=== PATIENT | female | born 1990 | race Caucasian/White ===

== ENCOUNTER 2016-10-29 10:40 | Emergency (ER) | payer MEDICARE, MEDICAID ==
[~2016-10-29] VITALS: Ht 160 cm; Wt 88.0 kg
[~2016-10-29 10:40] MED LIST: BUME1TAB28 PO; CARV6.252 PO; LISI10TA3 PO; METO5TAB3 PO
[2016-10-29 10:48] VITALS: BP 134/97; PULSE 94; RESP 18; TEMP 98.1; O2SAT 98
[2016-10-29] MEDS ORDERED: OXYC-395 PO (11:08)
[2016-10-29] MEDS ORDERED: ZOFR4TAB3 SL (11:08)
[2016-10-29] MEDS ORDERED: ZOFR4TAB PO (11:25)
--- NOTE | 2016-10-29 11:31 | PD ---
HPI Chief Complaint: Edema Time Seen by Provider: 11:11 Travel History International Travel<30 days: No Contact w/Intl Traveler<30days: No Traveled to known affect area: No History of Present Illness HPI The patient was seen and examined in the presence of the nurse. This patient complains of some swelling in her legs and abdominal wall. She has history of cardiomyopathy. She takes Bumex and reports compliance. She requests more narcotic medication for chronic back pain. She is not short of breath. Symptoms severity is mild PFSH Past Medical History Arthritis: No Asthma: No Autoimmune Disease: No Blood Disorders: No Anxiety: Yes Depression: Yes Heart Rhythm Problems: No Cancer: No Cardiomyopathy: Yes Cardiovascular Problems: Yes (AICD, POST- CARDIOMYOPATHY) High Cholesterol: Yes Chemotherapy: No Chest Pain: Yes Congestive Heart Failure: Yes COPD: No Cerebrovascular Accident: No Diabetes: Yes Patient Takes Glucophage: No Diminished Hearing: No Endocrine: Yes Gastrointestinal Disorders: Yes (Pancreatitis) GERD: No Genitourinary: Yes (Chronic Kidney disease) Headaches: Yes Hiatal Hernia: No Hypertension: Yes Immune Disorder: No Implanted Vascular Access Dvce: Yes Kidney Stones: No Musculoskeletal: Yes (Back) Neurologic: Yes (Neuropathy) Psychiatric: Yes Reproductive: No Respiratory: Yes Immunizations Current: Yes Migraines: Yes Radiation Therapy: No Renal Failure: Yes (stage 3 kidney disease) Seizures: No Sleep Apnea: No Thyroid Disease: No Ulcer: No Tetanus Vaccination: < 5 Years Influenza Vaccination: Yes ?: Not : 1 Para: 1 Miscarriage: 0 : 0 Tubal Ligation: Yes Past Surgical History Abdominal Surgery: No AICD: Yes Arteriovenous Shunt: No Body Medical Devices: PT WORE EXTERNAL LIFE VEST 05/15/13 Cardiac Surgery: Yes (AICD PLACED & REMOVED) Section: Yes Cholecystectomy: Yes Ear Surgery: No Endocrine Surgery: No Eye Surgery: No Genitourinary Surgery: No Gynecologic Surgery: Yes Insulin Pump: No Joint Replacement: No Oral Surgery: No Pacemaker: No Thoracic Surgery: No Tonsillectomy: Yes (7 years old.) Other Surgery: Yes (TONSILLECTOMY, C SECTION, TUBAL, GALLBLADDER REMOVAL) Social History Alcohol Use: No Tobacco Use: No Substance Use: No Allergies-Medications (Allergen,Severity, Reaction): Coded Allergies: Toradol (Verified Adverse Reaction, Intermediate, SHAKING, 10/29/16) Reported Meds & Prescriptions Reported Meds & Active Scripts Active Zofran (Ondansetron HCl) 4 Mg Tab 4 Mg PO Q6HR PRN Metolazone 5 Mg Tab 5 Mg PO DAILY 30 Days Lisinopril 10 Mg Tab 10 Mg PO DAILY 30 Days Carvedilol 6.25 Mg Tab 6.25 Mg PO BID 30 Days Bumex (Bumetanide) 2 Mg Tab 2 Mg PO BID 30 Days Reported Oxycodone (Oxycodone HCl) 10 Mg Tab 10 Mg PO Q6H PRN Zofran Odt (Ondansetron Odt) 4 Mg Tab 4 Mg SL DIRECTED PRN Review of Systems General / Constitutional: No: Fever HENT: No: Headaches Cardiovascular: No: Chest Pain or Discomfort Physical Exam Narrative RESPIRATORY: Respiratory effort unlabored, no retractions or use of accessory muscles. Breath sounds are clear and symmetric. GASTROINTESTINAL: Abdomen soft, non-tender, nondistended. Positive bowel sounds. No hepato-splenomegaly, or palpable masses. No guarding. SKIN: Inspection shows no rash or ulcers. Palpation shows no induration or nodules. Legs: No edema noted Data Data Last Documented VS Vital Signs Date Time Temp Pulse Resp B/P Pulse Ox O2 Delivery O2 Flow Rate FiO2 10/29/16 11:01 92 98 Room Air 10/29/16 10:48 98.1 18 134/97 MDM Medical Decision Making Medical Screen Exam Complete: Yes Emergency Medical Condition: Yes Medical Record Reviewed: Yes Differential Diagnosis CHF, anasarca, noncompliance Narrative Course I have reviewed the patient's electronic medical record. Reviewed her visit from October 04, 2016 Patient has no emergent condition at the moment. She does have chronic cardiomyopathy but appears well compensated. Lungs are clear with saturations of 100% on room air and no peripheral edema No indication for emergent studies She requests narcotic pain medicine which may be the real reason for her visit I don't feel comfortable continuing 26-year-old chronic narcotics, I think this is a bad idea and was honest with her about that. I'm not going to prescribe them. She should discuss this with her primary physician but should wean herself off of these I think. 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 Recommend weaning off chronic narcotics Med/Other Pt SpecificInfo: Prescription(s) given Scripts Ondansetron (Zofran)4 Mg Tab4 Mg PO Q6HR PRN (NAUSEA OR VOMITING) #15 TAB Ref 0 Prov:Ronan Jorgensen MD 10/29/16 Disposition: 01 DISCHARGE HOME Condition: Stable Ronan Jorgensen MD Oct 29, 2016 11:31
== END 2016-10-29 11:39 | disposition home or self-care (01) ==
LOC: PHED 10:40
DX: I42.9 Cardiomyopathy, unspecified (principal); I12.9 Hypertensive chronic kidney disease with stage 1 through stage 4 chronic kidney disease, or unspecified chronic kidney disease; E78.00 Pure hypercholesterolemia, unspecified; I50.9 Heart failure, unspecified
CPT/HCPCS: 99283

== ENCOUNTER 2016-11-26 11:24 | Inpatient (IN) | payer MEDICARE, MEDICAID ==
[2016-11-26] VITALS (7 sets, daily range): BP systolic 104–168; BP diastolic 57–93; PULSE 75–130; RESP 13–32; TEMP 98.7–102.9; O2SAT 95–100
[~2016-11-26] VITALS: Ht 165.1 cm; Wt 96.7 kg
[~2016-11-26 11:24] MED LIST changes: +OXYC-395 PO; +ZOFR4TAB PO; +ZOFR4TAB3 SL
[2016-11-26] MEDS ORDERED: ACETAMINOPHEN 325 MG TAB PO ONE (11:45)
[2016-11-26] MEDS ORDERED: ONDANSETRON HCL 4 MG/2 ML VIAL IV ONE (11:45)
[2016-11-26] MEDS ORDERED: SODIUM CHLOR 0.9% 1000 ML INJ 400 ML IV ONE (11:47)
[2016-11-26] MEDS ORDERED: SODIUM CHLOR 0.9% 1000 ML INJ 1,000 ML IV ONE ×2 (11:47)
[2016-11-26] MEDS ORDERED: VANCOMYCIN INJ 1,000 MG in SODIUM CHLOR 0.9% 250 ML INJ 250 ML IV STA (11:47)
[2016-11-26] MEDS ORDERED: PIPERACIL-TAZO 4.5 GM PREMIX 100 ML IV STA (11:47)
--- NOTE | 2016-11-26 12:02 | PD ---
HPI Chief Complaint: Respiratory Symptoms Time Seen by Provider: 11:58 Travel History International Travel<30 days: No Contact w/Intl Traveler<30days: No Traveled to known affect area: No History of Present Illness HPI Patient comes in complaining of shortness of breath that began last night. Patient states had some similar happen to her in the past most recently approximately 2-3 months ago that she had to come to the emergency department. Patient has a history of cardiomyopathy and renal failure. Patient reports she was on dialysis up to about 2 years ago for this. Patient states she's been taking all her medications prescribed, but ran out of her Xanax and pain medication 2 days ago. Symptoms are worse with lying flat and improved with sitting up straight. Patient reports she took Tylenol and aspirin approximately 2 hours prior to coming to the emergency department. PFSH Past Medical History Arthritis: No Asthma: No Autoimmune Disease: No Blood Disorders: No Anxiety: Yes Depression: Yes Heart Rhythm Problems: No Cancer: No Cardiomyopathy: Yes Cardiovascular Problems: Yes (CARDIOMYOPATHY) High Cholesterol: Yes Chemotherapy: No Chest Pain: Yes Congestive Heart Failure: Yes COPD: No Cerebrovascular Accident: No Diabetes: Yes Diminished Hearing: No Endocrine: Yes Gastrointestinal Disorders: Yes (Pancreatitis) GERD: No Genitourinary: Yes (Chronic Kidney disease) Headaches: Yes Hiatal Hernia: No Hypertension: Yes Immune Disorder: No Implanted Vascular Access Dvce: Yes Kidney Stones: No Musculoskeletal: Yes (Back) Neurologic: Yes (Neuropathy) Psychiatric: Yes Reproductive: No Respiratory: Yes Immunizations Current: Yes Migraines: Yes Radiation Therapy: No Renal Failure: Yes (stage 3 kidney disease) Seizures: No Sleep Apnea: No Thyroid Disease: No Ulcer: No ?: Not LMP: 11/19/16 : 1 Para: 1 Miscarriage: 0 : 0 Tubal Ligation: Yes Past Surgical History Abdominal Surgery: No AICD: Yes Arteriovenous Shunt: No Body Medical Devices: PT WORE EXTERNAL LIFE VEST 05/15/13 Cardiac Surgery: Yes (AICD PLACED & REMOVED) Section: Yes Cholecystectomy: Yes Ear Surgery: No Endocrine Surgery: No Eye Surgery: No Genitourinary Surgery: No Gynecologic Surgery: Yes Insulin Pump: No Joint Replacement: No Oral Surgery: No Pacemaker: No Thoracic Surgery: No Tonsillectomy: Yes (7 years old.) Other Surgery: Yes (, Tubalitigation, Gallbladder) Social History Alcohol Use: No Tobacco Use: No Substance Use: No Allergies-Medications (Allergen,Severity, Reaction): Coded Allergies: Toradol (Verified Adverse Reaction, Intermediate, SHAKING, 10/29/16) Reported Meds & Prescriptions Reported Meds & Active Scripts Active Zofran (Ondansetron HCl) 4 Mg Tab 4 Mg PO Q6HR PRN Metolazone 5 Mg Tab 5 Mg PO DAILY 30 Days Lisinopril 10 Mg Tab 10 Mg PO DAILY 30 Days Carvedilol 6.25 Mg Tab 6.25 Mg PO BID 30 Days Bumex (Bumetanide) 2 Mg Tab 2 Mg PO BID 30 Days Reported Oxycodone (Oxycodone HCl) 10 Mg Tab 10 Mg PO Q6H PRN Review of Systems Except as stated in HPI: all other systems reviewed are Neg Physical Exam Narrative GENERAL: Well-developed, overly nourished, in no acute distress, and non-ill appearing. SKIN: Warm and dry. HEAD: Atraumatic. Normocephalic. EYES: Pupils equal and round. EOMI. No scleral icterus. No injection or drainage. ENT: No nasal bleeding or discharge. Mucous membranes pink and moist. NECK: Trachea midline. No JVD. Supple. No nuclear rigidity. CARDIOVASCULAR: Regular rate and rhythm. No murmur appreciated. RESPIRATORY: No accessory muscle use. No respiratory distress. Clear to auscultation. Breath sounds equal bilaterally. GASTROINTESTINAL: Abdomen soft, non-tender, nondistended. Hepatic and splenic margins not palpable. Normal bowel sounds 4. No pulsatile mass. MUSCULOSKELETAL: No obvious deformities. No clubbing. No cyanosis. 2+ pitting edema bilateral lower extremities. Full range of motion. NEUROLOGICAL: Awake and alert. No obvious cranial nerve deficits. Motor grossly within normal limits. Normal speech. PSYCHIATRIC: Appropriate mood and affect; insight and judgment normal. Data Data Last Documented VS Vital Signs Date Time Temp Pulse Resp B/P Pulse Ox O2 Delivery O2 Flow Rate FiO2 11/26/16 11:49 100 Nasal Cannula 2 11/26/16 11:38 102.9 130 32 168/93 Orders Electrocardiogram (11/26/16 11:43) Complete Blood Count With Diff (11/26/16 11:43) Comprehensive Metabolic Panel (11/26/16 11:43) Lactic Acid Sepsis Protocol (11/26/16 11:43) Ckmb (Isoenzyme) Profile (11/26/16 11:43) Troponin I (11/26/16 11:43) Urinalysis - C+S If Indicated (11/26/16 11:43) Influenzae A/B Antigen (11/26/16 11:43) Blood Culture (11/26/16 11:43) Chest, Single Ap (11/26/16 11:43) Blood Glucose (11/26/16 11:43) Ecg Monitoring (11/26/16 11:43) Iv Access Insert/Monitor (11/26/16 11:43) Oximetry (11/26/16 11:43) Oxygen Administration (11/26/16 11:43) Acetaminophen (Tylenol) (11/26/16 11:45) Ondansetron Inj (Zofran Inj) (11/26/16 11:45) Vancomycin Inj (Vancomycin Inj) (11/26/16 11:47) Piperacil-Tazo 4.5 Gm Premix (Zosyn 4.5 (11/26/16 11:47) Sodium Chlor 0.9% 1000 Ml Inj (Ns 1000 M (11/26/16 11:47) Sodium Chlor 0.9% 1000 Ml Inj (Ns 1000 M (11/26/16 11:47) Sodium Chlor 0.9% 1000 Ml Inj (Ns 1000 M (11/26/16 11:47) B-Type Natriuretic Peptide (11/26/16 12:01) Urine Culture (11/26/16 13:10) Morphine Inj (Morphine Inj) (11/26/16 13:45) Admit Order (Ed Use Only) (11/26/16 13:57) Labs Laboratory Tests Test 11/26/16 11/26/16 11:40 13:10 White Blood Count 3.7 TH/MM3 Red Blood Count 4.39 MIL/MM3 Hemoglobin 12.5 GM/DL Hematocrit 37.0 % Mean Corpuscular Volume 84.4 FL Mean Corpuscular Hemoglobin 28.6 PG Mean Corpuscular Hemoglobin 33.9 % Concent Red Cell Distribution Width 17.2 % Platelet Count 157 TH/MM3 Mean Platelet Volume 10.4 FL Neutrophils (%) (Auto) 93.6 % Lymphocytes (%) (Auto) 4.7 % Monocytes (%) (Auto) 1.0 % Eosinophils (%) (Auto) 0.3 % Basophils (%) (Auto) 0.4 % Neutrophils # (Auto) 3.4 TH/MM3 Lymphocytes # (Auto) 0.2 TH/MM3 Monocytes # (Auto) 0.0 TH/MM3 Eosinophils # (Auto) 0.0 TH/MM3 Basophils # (Auto) 0.0 TH/MM3 CBC Comment DIFF FINAL Differential Comment Sodium Level 141 MEQ/L Potassium Level 3.4 MEQ/L Chloride Level 106 MEQ/L Carbon Dioxide Level 24.8 MEQ/L Anion Gap 10 MEQ/L Blood Urea Nitrogen 41 MG/DL Creatinine 2.31 MG/DL Estimat Glomerular Filtration 25 ML/MIN Rate Random Glucose 157 MG/DL Lactic Acid Level 1.8 mmol/L Calcium Level 8.1 MG/DL Total Bilirubin 0.8 MG/DL Aspartate Amino Transf 20 U/L (AST/SGOT) Alanine Aminotransferase 20 U/L (ALT/SGPT) Alkaline Phosphatase 134 U/L Total Creatine Kinase 55 U/L Troponin I 0.03 NG/ML B-Type Natriuretic Peptide 1015 PG/ML Total Protein 5.8 GM/DL Albumin 2.3 GM/DL Urine Color YELLOW Urine Turbidity HAZY Urine pH 6.5 Urine Specific Jo[place] 1.015 Urine Protein GREATER THAN 600 mg/dL Urine Glucose (UA) 150 mg/dL Urine Ketones NEG mg/dL Urine Occult Blood MOD Urine Nitrite NEG Urine Bilirubin NEG Urine Urobilinogen LESS THAN 2.0 MG/DL Urine Leukocyte Esterase NEG Urine RBC 9 /hpf Urine WBC 1 /hpf Urine Squamous Epithelial <1 /hpf Cells Urine Bacteria OCC /hpf Urine Hyaline Casts 1 /lpf Urine Mucus FEW /lpf Microscopic Urinalysis Comment CATH-CULTURE IND MDM Medical Decision Making Medical Screen Exam Complete: Yes Emergency Medical Condition: Yes Interpretation(s) EKG reviewed by Dr. Pham, shows sinus tachycardia with a ventricular rate of 129. No STEMI. Differential Diagnosis Sepsis, pneumonia, bronchitis, CHF exacerbation, UTI, acute IL, other Narrative Course Patient seen and examined. Initial laboratory radiological studies were ordered. Patient given IV fluid for hydration and started on an IV antibiotics. Discussed patient with Dr. Pham, who saw and evaluated the patient and is in agreement with plan of care and disposition. Discussed all findings and plan of care with patient, who is agreeable for admission. All questions were answered. Sepsis Criteria SIRS Criteria (2 or more): Temp > 100.9 or < 96.8, Heart rate over 90, RR > 20 or PaCO2 < 32 Sepsis Criteria (SIRS+source): Infect source susp/known Physician Communication Physician Communication [phone] Collier, who is agreeable to admit the patient. Diagnosis Primary Impression: Sepsis Qualified Code: A41.9 - Sepsis, due to unspecified organism Admitting Information Admitting Physician Requests: Admit Condition: Stable Jose Marie Nov 26, 2016 12:02
[2016-11-26 12:29] LABS: AUTOMATED NEUTROPHIL # 3.4 TH/MM3 (1.8-7.7); BASOPHIL % 0.4 % (0.0-2.0); EOSINOPHIL % 0.3 % (0.0-4.0); HEMO FLAGS DIFF FINAL; LYMPH % 4.7 % (9.0-44.0); LYMPHOCYTE # 0.2 TH/MM3 (1.0-4.8); MEAN CELL VOLUME 84.4 FL (80.0-100.0); MEAN CORPUSCULAR HEMOGLOBIN 28.6 PG (27.0-34.0); MEAN CORPUSCULAR HGB CONC 33.9 % (32.0-36.0); NEUT % 93.6 % (16.0-70.0); PLATELET COUNT 157 TH/MM3 (150-450); RED BLOOD COUNT 4.39 MIL/MM3 (4.00-5.30); RED CELL DISTRIBUTION WIDTH 17.2 % (11.6-17.2); WHITE BLOOD COUNT 3.7 TH/MM3 (4.0-11.0)
[2016-11-26 12:48] LABS: ALT (GPT) 20 U/L (10-53); ANION GAP 10 MEQ/L (5-15); AST (GOT) 20 U/L (15-37); BICARBONATE 24.8 MEQ/L (21.0-32.0); BLOOD UREA NITROGEN 41 MG/DL (7-18); CHLORIDE 106 MEQ/L (98-107); GLOMERULAR FILTRATION RATE 25 ML/MIN (>89); POTASSIUM 3.4 MEQ/L (3.5-5.1); SODIUM (NA) 141 MEQ/L (136-145)
[2016-11-26 12:53] LABS: ALKALINE PHOSPHATASE 134 U/L (45-117); TOTAL BILIRUBIN ADULT 0.8 MG/DL (0.2-1.0)
[2016-11-26 12:54] LABS: CREATINE KINASE 55 U/L (26-192)
--- NOTE | 2016-11-26 13:06 | RADRPT ---
EXAM DATE/TIME: 11/26/2016 12:05 [facility] COMPARISON: CHEST SINGLE AP, October 04, 2016, 12:33. INDICATIONS: Short of breath. MEDICAL HISTORY: Myocardial infarction. Cardiomyopathy. SURGICAL HISTORY: Pacemaker. ENCOUNTER: Initial ACUITY: 1 day PAIN SCORE: 0/10 LOCATION: Bilateral chest FINDINGS: Pacemaker is implanted in the left chest. Heart is enlarged. Pulmonary vascularity is mildly conges fernando. There is no pneumothorax, alveolar consolidation or pleural effusion. CONCLUSION: 1. Cardiomegaly with mild pulmonary venous congestion. 2. Pacemaker. Westley Cerna MD FACR on November 26, 2016 at 12:57 Board Certified Radiologist. This report was verified electronically.
[2016-11-26 13:33] LABS: BACTERIA, URINE OCC /hpf; BLOOD, URINE MOD (NEG); COMMENT (UR) CATH-CULTURE IND; CULTURE IF INDICATED CATH CULTURE IND; GLUCOSE,URINE 150 mg/dL (NEG); HYALINE CAST, URINE 1 /lpf (RARE); KETONE, URINE NEG (NEG); MUCUS URINE FEW /lpf (OCC); NITRITE,URINE NEG (NEG); PH, URINE 6.5 (5.0-8.5); SQUAMOUS EPITHELIAL CELL URINE <1 /hpf (0-5); URINE COLOR YELLOW (YELLW/STRAW)
[2016-11-26] MEDS ORDERED: MORPHINE SULFATE 4 MG/ML INJ IV PUSH ONE (13:45)
[2016-11-26] MEDS ORDERED: SODIUM CHLOR 0.9% 1000 ML INJ 1,000 ML IV SCH (13:58)
[2016-11-26] MEDS ORDERED: MAGNESIUM HYDROXIDE SUSP 30 ML CUP PO PRN (14:00)
[2016-11-26] MEDS ORDERED: SODIUM CHLORIDE 0.9% FLUSH 5 ML FLUSH FLUSH PRN (14:00)
[2016-11-26] MEDS ORDERED: ACETAMINOPHEN 325 MG TAB PO PRN (14:00)
[2016-11-26] MEDS ORDERED: ONDANSETRON HCL 4 MG/2 ML VIAL IVP PRN (14:00)
[2016-11-26] MEDS ORDERED: NALOXONE HCL 0.4 MG/ML AMP IV PRN (14:00)
[2016-11-26] MEDS ORDERED: BISACODYL 10 MG SUPP PR PRN (14:00)
--- NOTE | 2016-11-26 14:12 | HHI.HP ---
[facility] Service [facility] Primary Care Physician Lucio Andrade DO Admission Diagnosis sepsis Diagnoses: Chief Complaint: Shortness of breath. Travel History International Travel<30 Days: No Contact w/Intl Traveler <30 Da: No Traveled to Known Affected Are: No Sepsis Criteria SIRS Criteria (2 or more): Temp > 100.9 or < 96.8, Heart rate over 90, RR > 20 or PaCO2 < 32, WBC > 53507, < 4000 or > 10% bands Sepsis Criteria (SIRS+source): Infect source susp/known History of Present Illness Ms. Jones is a pleasant 26-year-old female with a history of cardiomyopathy and renal failure who presents to the emergency department on 11/26/2016 due to shortness of breath. Patient also complains of swollen abdomen and lower extremities. She reports orthopnea as well. She denies any fever or chills but reports cough with phlegm. She also reports burning sensation on urination and less frequent urination. On arrival blood pressure 168/93, pulse 1:30, respirations 32, temperature 102.9F, pulse oximetry 100% on room air. WBC 3.7K with neutrophil count 93.6%. BMP indicated sodium 141, potassium 3.4, BUN 41, creatinine 2.31. BNP 1015. Echo from 07/12/2016 shows ejection fraction 10% with diffuse hypokinesis. Review of Systems ROS Limitations: Other (negative except as noted in the history of present illness) Past Family Social History Past Medical History Cardiomyopathy, hypercholesterolemia, congestive heart failure, pancreatitis, chronic kidney disease. 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 Tubal ligation, cholecystectomy, Reported Medications Zofran (Ondansetron HCl) 4 Mg Tab 4 Mg PO Q6HR PRN Metolazone 5 Mg Tab 5 Mg PO DAILY 30 Days Lisinopril 10 Mg Tab 10 Mg PO DAILY 30 Days Carvedilol 6.25 Mg Tab 6.25 Mg PO BID 30 Days Bumex (Bumetanide) 2 Mg Tab 2 Mg PO BID 30 Days Oxycodone (Oxycodone HCl) 10 Mg Tab 10 Mg PO Q6H PRN Allergies: Coded Allergies: Toradol (Verified Adverse Reaction, Intermediate, SHAKING, 10/29/16) Family History Mother - rheumatoid arthritis, hypertension. Social History Patient denies smoking or drinking. Denies using illicit drugs. Physical Exam Vital Signs Vital Signs Date Time Temp Pulse Resp B/P Pulse Ox O2 Delivery O2 Flow Rate FiO2 11/26/16 11:49 100 Nasal Cannula 2 11/26/16 11:38 102.9 130 32 168/93 100 Physical Exam GENERAL: This is a well-nourished, well-developed patient, in no apparent distress. SKIN: No rashes, ecchymoses or lesions. Warm and dry. HEAD: Atraumatic. Normocephalic. No temporal or scalp tenderness. EYES: Pupils equal round and reactive. No injection or drainage. ENT: Nose without bleeding, purulent drainage or septal hematoma. Airway patent. NECK: Trachea midline. No lymphadenopathy. Supple, nontender, no meningeal signs. CARDIOVASCULAR: Regular rate and rhythm without murmurs, gallops, or rubs. No JVD. RESPIRATORY: Clear to auscultation. Breath sounds equal bilaterally. No wheezes , rales, or rhonchi. GASTROINTESTINAL: Abdomen soft, non-tender, nondistended. No guarding. MUSCULOSKELETAL: Extremities without clubbing, cyanosis. Generalized edema in the abdominal area, lower ext. NEUROLOGICAL: Awake and alert. Cranial nerves II through XII intact. No focal neurological deficits. Normal speech. Laboratory Laboratory Tests Test 11/26/16 11/26/16 11:40 13:10 White Blood Count 3.7 Red Blood Count 4.39 Hemoglobin 12.5 Hematocrit 37.0 Mean Corpuscular Volume 84.4 Mean Corpuscular Hemoglobin 28.6 Mean Corpuscular Hemoglobin 33.9 Concent Red Cell Distribution Width 17.2 Platelet Count 157 Mean Platelet Volume 10.4 Neutrophils (%) (Auto) 93.6 Lymphocytes (%) (Auto) 4.7 Monocytes (%) (Auto) 1.0 Eosinophils (%) (Auto) 0.3 Basophils (%) (Auto) 0.4 Neutrophils # (Auto) 3.4 Lymphocytes # (Auto) 0.2 Monocytes # (Auto) 0.0 Eosinophils # (Auto) 0.0 Basophils # (Auto) 0.0 CBC Comment DIFF FINAL Differential Comment Sodium Level 141 Potassium Level 3.4 Chloride Level 106 Carbon Dioxide Level 24.8 Anion Gap 10 Blood Urea Nitrogen 41 Creatinine 2.31 Estimat Glomerular Filtration 25 Rate Random Glucose 157 Lactic Acid Level 1.8 Calcium Level 8.1 Total Bilirubin 0.8 Aspartate Amino Transf 20 (AST/SGOT) Alanine Aminotransferase 20 (ALT/SGPT) Alkaline Phosphatase 134 Total Creatine Kinase 55 Troponin I 0.03 B-Type Natriuretic Peptide 1015 Total Protein 5.8 Albumin 2.3 Urine Color YELLOW Urine Turbidity HAZY Urine pH 6.5 Urine Specific [place] 1.015 Urine Protein GREATER THAN 600 Urine Glucose (UA) 150 Urine Ketones NEG Urine Occult Blood MOD Urine Nitrite NEG Urine Bilirubin NEG Urine Urobilinogen LESS THAN 2.0 Urine Leukocyte Esterase NEG Urine RBC 9 Urine WBC 1 Urine Squamous Epithelial <1 Cells Urine Bacteria OCC Urine Hyaline Casts 1 Urine Mucus FEW Microscopic Urinalysis Comment CATH-CULTURE IND Date/Time Procedure Status Source Growth 11/26/16 13:10 Urine Culture Received Urine Clean Catch Pending 11/26/16 11:55 Aerobic Blood Culture Received Blood Peripheral Pending 11/26/16 11:55 Anaerobic Blood Culture Received Blood Peripheral Pending 11/26/16 11:45 Influenza Types A,B Antigen (HERACLIO) - Final Complete Nasal Washing NEGATIVE FOR FLU A AND B ANTIGEN.... Result Diagram: 11/26/16 1140 11/26/16 1140 Imaging Last Impressions Chest X-Ray 11/26/16 1143 Signed Impressions: Service Date/Time: Saturday, November 26, 2016 12:05 - CONCLUSION: 1. Cardiomegaly with mild pulmonary venous congestion. 2. Pacemaker. Westley Cerna MD FACR Assessment and Plan Problem List: (1) Sepsis ICD Code: A41.9 Status: Acute (2) Non-ischemic cardiomyopathy ICD Code: I42.8 Status: Acute (3) Urinary tract infection ICD Code: N39.0 Status: Acute Assessment and Plan Ms. Jones is a 26-year-old female with a history of nonischemic cardiomyopathy status post AICD placement who presents to the emergency department on 11/26/2016 due to shortness of breath as well as orthopnea and edema around her abdomen and lower extremities. - Sepsis (tachycardia, tachypnea, WBC count less than 4K, temperature 102.9, suspected infection urinary tract infection) - Probable urinary tract infection - Patient received vancomycin and Zosyn in the emergency department. - We'll start ceftriaxone 1 g in the morning. - Follow culture sensitivity. - Acute exacerbation of congestive heart failure systolic - Nonischemic cardiomyopathy - Status post AICD due to ejection fraction 10%. - We'll obtain limited echo in the morning. - Bumex 2 mg IV once then continue Bumex 1 mg IV twice a day. - Continue lisinopril 10 mg daily, carvedilol 6.25 mg twice a day. - Chronic kidney disease stage III - Continue metolazone 5 mg by mouth daily, Bumex 1 mg IV twice a day. - Minute transiently worsen kidney function. We'll continue to monitor. Full code. Heparin subcutaneous Physician Certification 2 Midnight Certification Type: Admission for Inpatient Services Order for Inpatient Services The services are ordered in accordance with Medicare regulations or non- Medicare payer requirements, as applicable. In the case of services not specified as inpatient-only, they are appropriately provided as inpatient services in accordance with the 2-midnight benchmark. Estimated LOS (days): 2 days is the estimated time the patient will need to remain in the hospital, assuming treatment plan goals are met and no additional complications. Post-Hospital Plan: Home Problem Qualifiers (1) Sepsis: Qualified Code: A41.9 - Sepsis, due to unspecified organism Manasa Collier DO Nov 26, 2016 2:11 pm
--- NOTE | 2016-11-26 14:28 | PD ---
Physical Exam Date Seen by Provider: Nov 26, 2016 Time Seen by Provider: 12:00 Narrative I, Dr. Lambert, have reviewed the advance practice practitioner's documentation and am in agreement, met with the patient face to face, made the diagnosis, and the medical decision making was done by me. *My assessment and Findings: Patient seen and evaluated with CORTNEY Ferraro, please see PA note for further details. Young female patient with history of cardiomyopathy, chronic renal insufficiency, on opiate pain medication and benzodiazepines chronically, has not taken in a few days, brought in by EMS for palpitations, tachycardia, and shortness of breath. On initial evaluation in the ER, it was noted that she was febrile. GENERAL: Well-nourished, well-developed young white female patient in mild distress. SKIN: Warm and dry. HEAD: Normocephalic. EYES: No scleral icterus. No injection or drainage. NECK: Supple, trachea midline. CARDIOVASCULAR: Fast and regular rhythm without murmurs, gallops, or rubs. RESPIRATORY: Breath sounds equal bilaterally. No accessory muscle use. GASTROINTESTINAL: Abdomen soft, non-tender, nondistended. MUSCULOSKELETAL: No cyanosis, or edema. BACK: Nontender without obvious deformity. No CVA tenderness. EKG shows sinus tachycardia at a rate of 129 bpm. No signs of acute ST-T changes. Laboratory Tests Test 11/26/16 11/26/16 11:40 13:10 White Blood Count 3.7 TH/MM3 (4.0-11.0) Neutrophils (%) (Auto) 93.6 % (16.0-70.0) Lymphocytes (%) (Auto) 4.7 % (9.0-44.0) Lymphocytes # (Auto) 0.2 TH/MM3 (1.0-4.8) Potassium Level 3.4 MEQ/L (3.5-5.1) Blood Urea Nitrogen 41 MG/DL (7-18) Creatinine 2.31 MG/DL (0.50-1.00) Estimat Glomerular Filtration 25 ML/MIN (>89) Rate Random Glucose 157 MG/DL (74-106) Calcium Level 8.1 MG/DL (8.5-10.1) Alkaline Phosphatase 134 U/L (45-117) B-Type Natriuretic Peptide 1015 PG/ML (0-100) Total Protein 5.8 GM/DL (6.4-8.2) Albumin 2.3 GM/DL (3.4-5.0) Urine Turbidity HAZY (CLEAR) Urine Protein GREATER THAN 600 mg/dL (NEG-TRACE) Urine Glucose (UA) 150 mg/dL (NEG) Urine Occult Blood MOD (NEG) Urine RBC 9 /hpf (0-3) Urine Bacteria OCC /hpf (NONE) Urine Mucus FEW /lpf (OCC) Chest x-ray did not show any signs of overt pneumonia. She does not have significant UTI. Lab work did show an elevated BNP. IV fluids have been initiated in the ER for sepsis protocol, however where judicious with her use of IV fluids secondary to cardiomyopathy history. IV antibiotics initiated after cultures are drawn. At this point, plan would be to admit her for further treatment for sepsis. Data Data Last Documented VS Vital Signs Date Time Temp Pulse Resp B/P Pulse Ox O2 Delivery O2 Flow Rate FiO2 11/26/16 11:49 100 Nasal Cannula 2 11/26/16 11:38 102.9 130 32 168/93 Orders Electrocardiogram (11/26/16 11:43) Complete Blood Count With Diff (11/26/16 11:43) Comprehensive Metabolic Panel (11/26/16 11:43) Lactic Acid Sepsis Protocol (11/26/16 11:43) Ckmb (Isoenzyme) Profile (11/26/16 11:43) Troponin I (11/26/16 11:43) Urinalysis - C+S If Indicated (11/26/16 11:43) Influenzae A/B Antigen (11/26/16 11:43) Blood Culture (11/26/16 11:43) Chest, Single Ap (11/26/16 11:43) Blood Glucose (11/26/16 11:43) Ecg Monitoring (11/26/16 11:43) Iv Access Insert/Monitor (11/26/16 11:43) Oximetry (11/26/16 11:43) Oxygen Administration (11/26/16 11:43) Acetaminophen (Tylenol) (11/26/16 11:45) Ondansetron Inj (Zofran Inj) (11/26/16 11:45) Vancomycin Inj (Vancomycin Inj) (11/26/16 11:47) Piperacil-Tazo 4.5 Gm Premix (Zosyn 4.5 (11/26/16 11:47) Sodium Chlor 0.9% 1000 Ml Inj (Ns 1000 M (11/26/16 11:47) Sodium Chlor 0.9% 1000 Ml Inj (Ns 1000 M (11/26/16 11:47) Sodium Chlor 0.9% 1000 Ml Inj (Ns 1000 M (11/26/16 11:47) B-Type Natriuretic Peptide (11/26/16 12:01) Urine Culture (11/26/16 13:10) Morphine Inj (Morphine Inj) (11/26/16 13:45) Admit Order (Ed Use Only) (11/26/16 13:57) Labs Laboratory Tests Test 11/26/16 11/26/16 11:40 13:10 White Blood Count 3.7 TH/MM3 Red Blood Count 4.39 MIL/MM3 Hemoglobin 12.5 GM/DL Hematocrit 37.0 % Mean Corpuscular Volume 84.4 FL Mean Corpuscular Hemoglobin 28.6 PG Mean Corpuscular Hemoglobin 33.9 % Concent Red Cell Distribution Width 17.2 % Platelet Count 157 TH/MM3 Mean Platelet Volume 10.4 FL Neutrophils (%) (Auto) 93.6 % Lymphocytes (%) (Auto) 4.7 % Monocytes (%) (Auto) 1.0 % Eosinophils (%) (Auto) 0.3 % Basophils (%) (Auto) 0.4 % Neutrophils # (Auto) 3.4 TH/MM3 Lymphocytes # (Auto) 0.2 TH/MM3 Monocytes # (Auto) 0.0 TH/MM3 Eosinophils # (Auto) 0.0 TH/MM3 Basophils # (Auto) 0.0 TH/MM3 CBC Comment DIFF FINAL Differential Comment Sodium Level 141 MEQ/L Potassium Level 3.4 MEQ/L Chloride Level 106 MEQ/L Carbon Dioxide Level 24.8 MEQ/L Anion Gap 10 MEQ/L Blood Urea Nitrogen 41 MG/DL Creatinine 2.31 MG/DL Estimat Glomerular Filtration 25 ML/MIN Rate Random Glucose 157 MG/DL Lactic Acid Level 1.8 mmol/L Calcium Level 8.1 MG/DL Total Bilirubin 0.8 MG/DL Aspartate Amino Transf 20 U/L (AST/SGOT) Alanine Aminotransferase 20 U/L (ALT/SGPT) Alkaline Phosphatase 134 U/L Total Creatine Kinase 55 U/L Troponin I 0.03 NG/ML B-Type Natriuretic Peptide 1015 PG/ML Total Protein 5.8 GM/DL Albumin 2.3 GM/DL Urine Color YELLOW Urine Turbidity HAZY Urine pH 6.5 Urine Specific [place] 1.015 Urine Protein GREATER THAN 600 mg/dL Urine Glucose (UA) 150 mg/dL Urine Ketones NEG mg/dL Urine Occult Blood MOD Urine Nitrite NEG Urine Bilirubin NEG Urine Urobilinogen LESS THAN 2.0 MG/DL Urine Leukocyte Esterase NEG Urine RBC 9 /hpf Urine WBC 1 /hpf Urine Squamous Epithelial <1 /hpf Cells Urine Bacteria OCC /hpf Urine Hyaline Casts 1 /lpf Urine Mucus FEW /lpf Microscopic Urinalysis Comment CATH-CULTURE IND MDM Medical Record Reviewed: Yes Supervised Visit with KUNAL: Yes Sepsis Criteria SIRS Criteria (2 or more): Temp > 100.9 or < 96.8, Heart rate over 90, RR > 20 or PaCO2 < 32 Criteria Outcome: Meets SIRS criteria Diagnosis Primary Impression: Sepsis Qualified Code: A41.9 - Sepsis, due to unspecified organism Admitting Information Admitting Physician Requests: Admit Condition: Stable Pedro Lambert MD Nov 26, 2016 14:28
[2016-11-26] MEDS ORDERED: BUMETANIDE INJ 1 MG/4 ML VIAL IV PUSH ONE (14:45)
[2016-11-26] MEDS: HEPARIN SODIUM - SQ 10,000 UNITS/ML VIAL SQ SCH (16:23)
[2016-11-26] MEDS ORDERED: BUMETANIDE INJ 1 MG/4 ML VIAL IV PUSH SCH (18:00)
[2016-11-26] MEDS: BUMETANIDE INJ 1 MG/4 ML VIAL IV PUSH SCH (20:21)
[2016-11-26] MEDS: SODIUM CHLORIDE 0.9% FLUSH 5 ML FLUSH FLUSH SCH (21:00)
[2016-11-27] VITALS (10 sets, daily range): BP systolic 107–115; BP diastolic 55–79; PULSE 76–92; RESP 16–20; TEMP 97.5–98.6; O2SAT 93–98
[2016-11-27] MEDS: HEPARIN SODIUM - SQ 10,000 UNITS/ML VIAL SQ SCH ×2 (02:30→13:07)
[2016-11-27 06:29] LABS: BASOPHIL % 0.3 % (0.0-2.0); EOSINOPHIL # 0.1 TH/MM3 (0-0.4); EOSINOPHIL % 0.9 % (0.0-4.0); HEMATOCRIT 31.5 % (35.0-46.0); LYMPH % 6.5 % (9.0-44.0); LYMPHOCYTE # 0.7 TH/MM3 (1.0-4.8); MEAN CORPUSCULAR HEMOGLOBIN 28.9 PG (27.0-34.0); NEUT % 88.3 % (16.0-70.0); PLATELET COUNT 99 TH/MM3 (150-450); RED BLOOD COUNT 3.71 MIL/MM3 (4.00-5.30); RED CELL DISTRIBUTION WIDTH 17.3 % (11.6-17.2); WHITE BLOOD COUNT 10.2 TH/MM3 (4.0-11.0)
[2016-11-27 06:32] LABS: HEMO FLAGS AUTO DIFF
[2016-11-27 06:51] LABS: BICARBONATE 26.1 MEQ/L (21.0-32.0); POTASSIUM 3.4 MEQ/L (3.5-5.1)
[2016-11-27 07:41] LABS: BANDS 18 % (0-6); NEUTROPHIL # MANUAL DIFF 8.9 TH/MM3 (1.8-7.7); POLYS (SEG NEUTROPHILS) 69 % (16-70); WBC DIFF SAMPLE 100
[2016-11-27 07:42] LABS: OVALOCYTES 1+ (NORMAL); PLATELET ESTIMATE SMEAR LOW (NORMAL); PLATELET MORPHOLOGY NORMAL (NORMAL); SCAN/DIFF FINAL DIFF MANUAL
[2016-11-27] MEDS: LISINOPRIL 10 MG TAB PO SCH (09:08)
[2016-11-27] MEDS: METOLAZONE 5 MG TAB PO SCH (09:08)
[2016-11-27] MEDS: CARVEDILOL 6.25 MG TAB PO SCH ×2 (09:08→21:11)
[2016-11-27] MEDS: SODIUM CHLORIDE 0.9% FLUSH 5 ML FLUSH FLUSH SCH ×2 (09:08→21:12)
[2016-11-27] MEDS: BUMETANIDE INJ 1 MG/4 ML VIAL IV PUSH SCH ×2 (09:08→17:07)
[2016-11-27] MEDS: cefTRIAXone INJ 1,000 MG in SODIUM CHLORIDE 0.9% INJ 100 ML IV SCH (09:14)
[2016-11-27] MEDS ORDERED: LEVOFLOXACIN 750 MG TAB PO SCH (10:15)
[2016-11-27] MEDS ORDERED: ACETAMIN 325 MG/BUTALBITAL 50 MG/CAFFEINE 40 MG TAB PO PRN (10:15)
--- NOTE | 2016-11-27 12:05 | HHI.PR ---
Subjective Remarks Follow-up for sepsis, possibly UTI, congestive heart failure. Ms. Jones is doing better today. She reports improvement of her leg edema. She reports persistent chronic back pain. No fever or chills. Objective Vitals Vital Signs Date Time Temp Pulse Resp B/P Pulse Ox O2 Delivery O2 Flow Rate FiO2 11/27/16 08:00 98.5 91 20 115/79 93 11/27/16 04:00 98.6 92 18 114/72 97 11/27/16 00:00 98.4 90 18 111/70 96 11/26/16 20:50 98.8 81 18 112/69 95 11/26/16 18:55 98.7 75 104/57 11/26/16 16:00 90 13 112/68 97 Room Air 11/26/16 14:41 99 Nasal Cannula 2.00 11/26/16 13:00 112 23 134/64 95 Room Air I/O 11/26/16 11/26/16 11/26/16 11/27/16 11/27/16 11/27/16 07:00 15:00 23:00 07:00 15:00 23:00 Intake Total 480 ml Output Total 450 ml Balance 30 ml Intake Oral 480 ml Output Urine Total 450 ml # Voids 1 Result Diagram: 11/27/16 0524 11/27/16 0524 Imaging Last Impressions Chest X-Ray 11/26/16 1143 Signed Impressions: Service Date/Time: Saturday, November 26, 2016 12:05 - CONCLUSION: 1. Cardiomegaly with mild pulmonary venous congestion. 2. Pacemaker. Westley Cerna MD FACR Objective Remarks GENERAL: Alert, oriented 3, NAD. SKIN: Warm and dry. HEAD: Normocephalic. EYES: No scleral icterus. No injection or drainage. NECK: Supple, trachea midline. No JVD or lymphadenopathy. CARDIOVASCULAR: Regular rate and rhythm without murmurs, gallops, or rubs. RESPIRATORY: Breath sounds equal bilaterally. No accessory muscle use. GASTROINTESTINAL: Abdomen soft, non-tender, nondistended. MUSCULOSKELETAL: No cyanosis. Edema in lower ext improved. BACK: Nontender without obvious deformity. No CVA tenderness. Procedures None. A/P Problem List: (1) Sepsis ICD Code: A41.9 Status: Acute (2) Non-ischemic cardiomyopathy ICD Code: I42.8 Status: Acute (3) Urinary tract infection ICD Code: N39.0 Status: Acute Assessment and Plan Ms. Jones is a 26-year-old female with a history of nonischemic cardiomyopathy status post AICD placement who presents to the emergency department on 11/26/2016 due to shortness of breath as well as orthopnea and edema around her abdomen and lower extremities. - Sepsis (tachycardia, tachypnea, WBC count less than 4K, temperature 102.9, suspected infection urinary tract infection) - Probable urinary tract infection - Probable Pneumonia - Patient received vancomycin and Zosyn in the emergency department. - Continue Ceftriaxone. We will add Levaquin as well, renally dosed. - Follow culture sensitivity. - Acute exacerbation of congestive heart failure systolic - Nonischemic cardiomyopathy - Status post AICD due to ejection fraction 10%. - Limited Echo pending. - Bumex 2 mg IV once then continue Bumex 1 mg IV twice a day. - Continue lisinopril 10 mg daily, carvedilol 6.25 mg twice a day. - Chronic kidney disease stage III - Continue metolazone 5 mg by mouth daily, Bumex 1 mg IV twice a day. - May transiently worsen kidney function. We'll continue to monitor. - Chronic back pain - Will switch from Oxycodone to PO Dilaudid PRN. Full code. Heparin subcutaneous Discharge Plan: Anticipate discharge on 11/29/2016. Problem Qualifiers (1) Sepsis: Qualified Code: A41.9 - Sepsis, due to unspecified organism Manasa Collier DO Nov 27, 2016 12:05 pm
[2016-11-27] MEDS: RESP: ALBUTEROL 2.5 MG/IPRATROPIUM 0.5 MG NEB (SCH) NEB ×2 (12:39→20:32)
[2016-11-27] MEDS: HYDROmorphone HCL 4 MG TAB PO PRN ×3 (13:07→21:12)
--- NOTE | 2016-11-27 17:53 | EKG ---
Date Performed: 11/26/2016 Time Performed: 11:33:12 PTAGE: 26 years EKG: SINUS TACHYCARDIA LEFT VENTRICULAR HYPERTROPHY AND ST-T CHANGE POSSIBLE SEPTAL MYOCARDIAL I NFARCTION Since previous tracing, no significant change noted ABNORMAL ECG PREVIOUS TRACING : 10/04/2016 12.25.51 DOCTOR: Malik Gardner Interpretating Date/Time 11/27/2016 17:51:00
[2016-11-27] MEDS: ALPRAZolam 0.5 MG TAB PO PRN (18:47)
--- NOTE | 2016-11-27 19:02 | ECHLIM ---
Study Study Date:11/27/2016 STUDY CONCLUSIONS SUMMARY - Left ventricle: The cavity size was moderately dilated. Wall thickness was normal. Systolic function was severely reduced. The estimated ejection fraction was in the range of 10% to 15%. Diffuse hypokinesis. Questionable echodensity in the apex vs artifact, cannot exclude apical thrombus. - Aortic valve: Trace regurgitation. - Mitral valve: Severe regurgitation. - Left atrium: The atrium was moderately dilated. - Right ventricle: The cavity size was moderately dilated. - Tricuspid valve: Severe regurgitation. - Pulmonary arteries: PA peak pressure: 74mm Hg (S). Recommendations: Consider echocardiogram with Definity for LV apex thrombus vs artifact If LV function is below 40, please consider prescribing an ACEI or ARB or document rationale for non-use. PROCEDURE DATA Procedure: Transthoracic echocardiography. Image quality was good. Scanning was performed from the parasternal, apical, and subcostal acoustic windows. Study completion: The patient tolerated the procedure well. Transthoracic echocardiography. M-mode, limited 2D, limited spectral Doppler, and color Doppler. Height: Height: 65in. Weight: Weight: 211.6lb. Body mass index: BMI: 35.3kg/m^2. Body surface area: BSA: 2.03m^2. CARDIAC ANATOMY LEFT VENTRICLE: The cavity size was moderately dilated. Wall thickness was normal. Systolic function was severely reduced. The estimated ejection fraction was in the range of 10% to 15%. Diffuse hypokinesis. Questionable echodensity in the apex vs artifact, cannot exclude apical thrombus. AORTIC VALVE: The valve appears to be grossly normal. Doppler: There was no stenosis. Trace regurgitation. MITRAL VALVE: Doppler: There was no evidence for stenosis. Severe regurgitation. Peak gradient: 7mm Hg (D). LEFT ATRIUM: The atrium was moderately dilated. RIGHT VENTRICLE: The cavity size was moderately dilated. PULMONIC VALVE: Not well visualized. Doppler: There was no evidence for stenosis. No significant regurgitation. TRICUSPID VALVE: The valve appears to be grossly normal. Doppler: There was no evidence for stenosis. Severe regurgitation. Patient weight: 211.6lb _Ejection fraction:_ 65-75% _Fractional shortening:_ 32% up to 5Kg 5-11.5Kg 11.6-22.9Kg 23-45Kg 45-57Kg Aortic Root 7-13 <17 13-22 17-27 17-27 LA diam 6-13 <23 24-38 33-47 37-40 RVID 10-17 7-15 7-15 7-18 8-17 LVIDd 12-22 <32 24-38 33-47 37-40 LVPW 2-4 3-6 5-7 6-8 7-8 IVS 2-4 3-6 5-7 6-8 7-8 BASIC MEASUREMENTS ADULT Normal Left ventricle LV internal dimension, ED, chordal level, *67.2 mm 43-52 PLAX LV internal dimension, ES, chordal level, *64.3 mm 23-38 PLAX Fractional shortening, chordal level, PLAX *4 % >29 LV posterior wall thickness, ED 9.2 mm IVS/LVPW ratio, ED 1 <1.3 Volume, ED, MOD, 1-plane 291 ml Volume, ES, MOD, 1-plane 251 ml Ejection fraction, MOD, 1-plane 14 % Stroke volume, MOD, 1-plane 40 ml Volume index, ED, MOD, 1-plane 143 ml/m^2 Volume index, ES, MOD, 1-plane 124 ml/m^2 Stroke index, MOD, 1-plane 19.7 ml/m^2 Volume, ED, MOD, 2-plane 299 ml Volume, ES, MOD, 2-plane 257 ml Ejection fraction, MOD, 2-plane 14 % Stroke volume, MOD, 2-plane 42 ml Volume index, ED, MOD, 2-plane 147 ml/m^2 Volume index, ES, MOD, 2-plane 127 ml/m^2 Stroke index, MOD, 2-plane 20.7 ml/m^2 Ventricular septum Septal thickness, ED 9.19 mm Aorta Root diameter, ED 29 mm Left atrium Anterior-posterior dimension 42 mm Anterior-posterior dimension index 2.07 cm/m^2 <2.2 DOPPLER MEASUREMENTS ADULT Normal Main pulmonary artery Pressure, S *74 mm Hg =30 Mitral valve Peak E-wave velocity 133 cm/s Peak A-wave velocity 59.2 cm/s Deceleration time *137 ms 150-230 Peak gradient, D 7 mm Hg Peak E/A ratio 2.2 Tricuspid valve Regurgitant peak velocity 400 cm/s Peak RV-RA gradient, S 64 mm Hg Maximal regurgitant velocity 400 cm/s Systemic veins Estimated CVP 10 mm Hg Right ventricle RV pressure, S *74 mm Hg <30 LEGEND: Mean values are shown as u=mean value. Asterisk (*) myrick values outside specified normal range. Prepared and signed by Jian Talamantes [id number]
[2016-11-28] VITALS: BP 121/76; PULSE 65; RESP 17; TEMP 97.1; O2SAT 97
[2016-11-28] MEDS: HYDROmorphone HCL 4 MG TAB PO PRN ×4 (01:17→13:39)
[2016-11-28] MEDS: HEPARIN SODIUM - SQ 10,000 UNITS/ML VIAL SQ SCH ×2 (01:18→13:39)
[2016-11-28 04:00] VITALS: BP 114/56; PULSE 72; RESP 18; TEMP 97.2; O2SAT 98
[2016-11-28] MEDS: ALPRAZolam 0.5 MG TAB PO PRN (06:54)
[2016-11-28 08:00] VITALS: BP 106/64; PULSE 79; RESP 18; TEMP 97.3; O2SAT 100
[2016-11-28] MEDS: METOLAZONE 5 MG TAB PO SCH (08:16)
[2016-11-28] MEDS: CARVEDILOL 6.25 MG TAB PO SCH (08:16)
[2016-11-28] MEDS: LISINOPRIL 10 MG TAB PO SCH (08:16)
[2016-11-28] MEDS: BUMETANIDE INJ 1 MG/4 ML VIAL IV PUSH SCH (08:17)
[2016-11-28] MEDS: SODIUM CHLORIDE 0.9% FLUSH 5 ML FLUSH FLUSH SCH (08:17)
[2016-11-28] MEDS: cefTRIAXone INJ 1,000 MG in SODIUM CHLORIDE 0.9% INJ 100 ML IV SCH (08:17)
[2016-11-28] MEDS: RESP: ALBUTEROL 2.5 MG/IPRATROPIUM 0.5 MG NEB (SCH) NEB ×2 (08:29→14:08)
[2016-11-28 08:30] VITALS: O2SAT 98
[2016-11-28 09:33] VITALS: PULSE 83
[2016-11-28] MEDS ORDERED: ALPR.5 PO (09:41)
[2016-11-28] MEDS ORDERED: LEVA750T PO (09:41)
[2016-11-28] MEDS ORDERED: DILA4TAB2 PO (09:41)
--- NOTE | 2016-11-28 09:49 | HHI.DS ---
Discharge Summary Admission Date Nov 26, 2016 at 1:59 pm Discharge Date: Nov 28, 2016 Admitting Diagnosis sepsis (1) Sepsis ICD Code: A41.9 Diagnosis: Principal (2) Non-ischemic cardiomyopathy ICD Code: I42.8 Diagnosis: Principal (3) Urinary tract infection ICD Code: N39.0 Procedures Echo 11/27/2016 - Left ventricle: The cavity size was moderately dilated. Wall thickness was normal. Systolic function was severely reduced. The estimated ejection fraction was in the range of 10% to 15%. Diffuse hypokinesis. Questionable echodensity in the apex vs artifact, cannot exclude apical thrombus. - Aortic valve: Trace regurgitation. - Mitral valve: Severe regurgitation. - Left atrium: The atrium was moderately dilated. - Right ventricle: The cavity size was moderately dilated. - Tricuspid valve: Severe regurgitation. - Pulmonary arteries: PA peak pressure: 74mm Hg (S). Recommendations: Consider echocardiogram with Definity for LV apex thrombus vs artifact Brief History - From Admission Ms. Jones is a pleasant 26-year-old female with a history of cardiomyopathy and renal failure who presents to the emergency department on 11/26/2016 due to shortness of breath. Patient also complains of swollen abdomen and lower extremities. She reports orthopnea as well. She denies any fever or chills but reports cough with phlegm. She also reports burning sensation on urination and less frequent urination. On arrival blood pressure 168/93, pulse 1:30, respirations 32, temperature 102.9F, pulse oximetry 100% on room air. WBC 3.7K with neutrophil count 93.6%. BMP indicated sodium 141, potassium 3.4, BUN 41, creatinine 2.31. BNP 1015. Echo from 07/12/2016 shows ejection fraction 10% with diffuse hypokinesis. CBC/BMP: 11/27/16 0524 11/27/16 0524 Significant Findings Laboratory Tests Test 11/26/16 11/26/16 11/27/16 11:40 13:10 05:24 White Blood Count 3.7 TH/MM3 (4.0-11.0) Neutrophils (%) (Auto) 93.6 % 88.3 % (16.0-70.0) (16.0-70.0) Lymphocytes (%) (Auto) 4.7 % 6.5 % (9.0-44.0) (9.0-44.0) Lymphocytes # (Auto) 0.2 TH/MM3 0.7 TH/MM3 (1.0-4.8) (1.0-4.8) Potassium Level 3.4 MEQ/L 3.4 MEQ/L (3.5-5.1) (3.5-5.1) Blood Urea Nitrogen 41 MG/DL (7-18) 39 MG/DL (7-18) Creatinine 2.31 MG/DL 2.48 MG/DL (0.50-1.00) (0.50-1.00) Estimat Glomerular Filtration 25 ML/MIN (>89) 23 ML/MIN (>89) Rate Random Glucose 157 MG/DL (74-106) Calcium Level 8.1 MG/DL 7.8 MG/DL (8.5-10.1) (8.5-10.1) Alkaline Phosphatase 134 U/L (45-117) B-Type Natriuretic Peptide 1015 PG/ML (0-100) Total Protein 5.8 GM/DL (6.4-8.2) Albumin 2.3 GM/DL (3.4-5.0) Urine Turbidity HAZY (CLEAR) Urine Protein GREATER THAN 600 mg/dL (NEG-TRACE) Urine Glucose (UA) 150 mg/dL (NEG) Urine Occult Blood MOD (NEG) Urine RBC 9 /hpf (0-3) Urine Bacteria OCC /hpf (NONE) Urine Mucus FEW /lpf (OCC) Red Blood Count 3.71 MIL/MM3 (4.00-5.30) Hemoglobin 10.7 GM/DL (11.6-15.3) Hematocrit 31.5 % (35.0-46.0) Red Cell Distribution Width 17.3 % (11.6-17.2) Platelet Count 99 TH/MM3 (150-450) Neutrophils # (Auto) 9.0 TH/MM3 (1.8-7.7) Band Neutrophils % 18 % (0-6) Lymphocytes % 8 % (9-44) Neutrophils # (Manual) 8.9 TH/MM3 (1.8-7.7) Platelet Estimate LOW (NORMAL) Ovalocytes 1+ (NORMAL) Imaging Last Impressions Chest X-Ray 11/26/16 1143 Signed Impressions: Service Date/Time: Saturday, November 26, 2016 12:05 - CONCLUSION: 1. Cardiomegaly with mild pulmonary venous congestion. 2. Pacemaker. Westley Cerna MD FACR PE at Discharge GENERAL: Alert, oriented 3, NAD. SKIN: Warm and dry. HEAD: Normocephalic. EYES: No scleral icterus. No injection or drainage. NECK: Supple, trachea midline. No JVD or lymphadenopathy. CARDIOVASCULAR: Regular rate and rhythm without murmurs, gallops, or rubs. RESPIRATORY: Breath sounds equal bilaterally. No accessory muscle use. GASTROINTESTINAL: Abdomen soft, non-tender, nondistended. MUSCULOSKELETAL: No cyanosis. Edema in lower ext improved. BACK: Nontender without obvious deformity. No CVA tenderness. Pt update on day of discharge Patient is doing well. No acute concerns. Denies any chest pain, SOB, fever, chills. Ambulating well. Hospital Course Ms. Jones is a 26-year-old female with a history of nonischemic cardiomyopathy status post AICD placement who presents to the emergency department on 11/26/2016 due to shortness of breath as well as orthopnea and edema around her abdomen and lower extremities. - Sepsis (tachycardia, tachypnea, WBC count less than 4K, temperature 102.9, suspected infection urinary tract infection) - Probable urinary tract infection - Probable Pneumonia - Patient received vancomycin and Zosyn in the emergency department. - Patient received ceftriaxone and Levaquin. Continued Levaquin on discharge. - Acute exacerbation of congestive heart failure systolic - Nonischemic cardiomyopathy - Status post AICD due to ejection fraction 10%. - Limited Echo initially showed EF 10-15% and possible apical shadow which may be a thrombus. - A repeat Limited echo was performed with Definity contrast. I pushed the contrast intravenously and stayed with patient while Echo was performed. Echo did not show any thrombus. Subsequently patient was discharged home. - continue Bumex 1 mg IV twice a day. - Continue lisinopril 10 mg daily, carvedilol 6.25 mg twice a day. - Chronic kidney disease stage III - Continue metolazone 5 mg by mouth daily, Bumex 1 mg IV twice a day. - Chronic back pain - Will switch from Oxycodone to PO Dilaudid PRN. Pt Condition on Discharge: Good Discharge Disposition: Discharge Home Discharge Time: > 30 minutes Discharge Instructions DIET: Follow Instructions for: Heart Healthy Diet Activities you can perform: Regular-No Restrictions Follow up Referrals: Cardiology - 2 Weeks with Leona Cardoso MD PCP Follow-up - 1 Week New Medications: B-D Insulin Syringe Ultra 30G X 1/2" 1 ml (B-D Insulin Syringe Ultra 30G X 1/2" 1 ml) 1 Mis Mis 1 EA .ROUTE DIRECTED Blood Sugar Management #100 BOX Bumetanide (Bumex) 1 Mg Tab 1 MG PO BID Fluid #60 Ref 0 TAB Insulin Aspart Inj (Novolog Inj) 1,000 Unit/10 Ml Vial 1-9 UNITS SQ ACHS Max dose at bedtime:( )units; sugars less than 70,(0)units; sugars 150-199,(1) unit; sugars 200-249,(3) units; sugars 250-299,(5) units; sugars 300-349,(7) units; sugars greater than 349,(9) units Blood Sugar Management #10 Ref 0 ML Ondansetron Odt (Zofran Odt) 4 Mg Tab 4 MG SL Q6HR PRN Nausea/Vomiting #30 Ref 0 TAB Potassium Chloride ER (K-Tab) 10 Meq Tab 10 MEQ PO DAILY Electrolyte Replacement #30 Ref 0 TAB Alprazolam (Xanax) 0.5 Mg Tab 0.5 MG PO Q12HR PRN Anxiety #14 TAB Hydromorphone (Dilaudid) 4 Mg Tab 4 MG PO Q6HR PRN PAIN #20 TAB Levofloxacin (Levaquin) 750 Mg Tab 750 MG PO EVERY OTHER DAY Infection #3 TAB Continued Medications: Carvedilol (Carvedilol) 6.25 Mg Tab 6.25 MG PO BID Days 30 Ref 0 TAB Lisinopril (Lisinopril) 10 Mg Tab 10 MG PO DAILY Days 30 Ref 0 TAB Metolazone (Metolazone) 5 Mg Tab 5 MG PO DAILY Days 30 Ref 0 TAB Discontinued Medications: Ondansetron (Zofran) 4 Mg Tab 4 MG PO Q6HR PRN NAUSEA OR VOMITING #15 Ref 0 TAB Oxycodone (Oxycodone) 10 Mg Tab 10 MG PO Q6H PRN PAIN Ref 0 TAB Ahmed,Shahabuddin DO Nov 28, 2016 09:48
[2016-11-28] MEDS ORDERED: ZOFR4TAB3 SL (11:32)
--- NOTE | 2016-11-28 15:04 | ECHLIM ---
Study Study Date:11/28/2016 STUDY CONCLUSIONS SUMMARY LEFT VENTRICLE: The cavity size was normal. Wall thickness was normal. Systolic function was severely reduced. The estimated ejection fraction was 15%. Severe diffuse hypokinesis. NO LV thrombus identified If LV function is below 40, please consider prescribing an ACEI or ARB or document rationale for non-use. PROCEDURE DATA STUDY STATUS: Elective. Procedure: Transthoracic echocardiography. Image quality was good. Scanning was performed from the parasternal, apical, and subcostal acoustic windows. Study completion: The patient tolerated the procedure well. Transthoracic echocardiography. M-mode, complete 2D, complete spectral Doppler, and color Doppler. Patient status: Inpatient. CARDIAC ANATOMY LEFT VENTRICLE: The cavity size was normal. Wall thickness was normal. Systolic function was severely reduced. The estimated ejection fraction was 15%. Severe diffuse hypokinesis. AORTIC VALVE: Trileaflet; normal thickness leaflets. Doppler: Transvalvular velocity was within the normal range. There was no stenosis. No regurgitation. AORTA: Aortic root: The aortic root was normal in size. MITRAL VALVE: Structurally normal valve. Doppler: Transvalvular velocity was within the normal range. There was no evidence for stenosis. No regurgitation. LEFT ATRIUM: The atrium was normal in size. RIGHT VENTRICLE: The cavity size was normal. Wall thickness was normal. PULMONIC VALVE: Doppler: Transvalvular velocity was within the normal range. There was no evidence for stenosis. No regurgitation. TRICUSPID VALVE: Structurally normal valve. Doppler: Transvalvular velocity was within the normal range. No regurgitation. PULMONARY ARTERY: The main pulmonary artery was normal-sized. Systolic pressure was within the normal range. RIGHT ATRIUM: The atrium was normal in size. PERICARDIUM: There was no pericardial effusion. SYSTEMIC VEINS: Inferior vena cava: The vessel was normal in size. Prepared and signed by Reynaldo Parker [id number]
[2016-11-28] MEDS ORDERED: NOVOLOGP2 SQ (15:46)
[2016-11-28] MEDS ORDERED: BUME1TAB26 PO (15:48)
[2016-11-28] MEDS ORDERED: K-TA10TA PO (15:50)
[2016-11-28] MEDS ORDERED: INSU-169 (16:01)
[2016-11-29] MEDS ORDERED: POTASSIUM CHLORIDE 10 MEQ CONTROLLED RELEASE TAB PO SCH (09:00)
== END 2016-11-28 16:17 | disposition home or self-care (01) | DRG 871 ==
LOC: NEPC 11:24 → NEDA 13:59 → NEDH 18:18 → N04A 20:46
PROVIDERS: ADMIT Hospitalist; ATTEND Hospitalist
DX: A41.9 Sepsis, unspecified organism (principal); I50.23 Acute on chronic systolic (congestive) heart failure; I42.9 Cardiomyopathy, unspecified; J18.9 Pneumonia, unspecified organism; E11.22 Type 2 diabetes mellitus with diabetic chronic kidney disease; N18.3 Chronic kidney disease, stage 3 (moderate); N39.0 Urinary tract infection, site not specified; G62.9 Polyneuropathy, unspecified; I12.9 Hypertensive chronic kidney disease with stage 1 through stage 4 chronic kidney disease, or unspecified chronic kidney disease; E78.00 Pure hypercholesterolemia, unspecified; Z95.810 Presence of automatic (implantable) cardiac defibrillator; R30.9 Painful micturition, unspecified; G89.29 Other chronic pain; M54.9 Dorsalgia, unspecified; I08.1 Rheumatic disorders of both mitral and tricuspid valves
CPT/HCPCS: 71010; 80048; 80053; 81001; 82550; 83605; 83880; 84484; 85007; 85025; 85027; 87040; 87086; 87804; 93005; 93308; 94640; 94664; 96365; 96375; J0696; J1644; J2270; J2405; J2543; J3370; J7030; J7050

== ENCOUNTER 2016-12-01 15:30 | Inpatient (IN) | payer MEDICARE, MEDICAID ==
[~2016-12-01] VITALS: Ht 162.6 cm; Wt 87.0 kg
[~2016-12-01 15:30] MED LIST changes: +ALPR.5 PO; +BUME1TAB26 PO; -BUME1TAB28 PO; +DILA4TAB2 PO; +INSU-169; +K-TA10TA PO; +LEVA750T PO; +NOVOLOGP2 SQ; -OXYC-395 PO; -ZOFR4TAB PO
[2016-12-01 15:45] VITALS: BP 129/74; PULSE 80; RESP 17; TEMP 97.8; O2SAT 98
--- NOTE | 2016-12-01 16:13 | PD ---
HPI Chief Complaint: Abdominal Pain Time Seen by Provider: 15:45 Travel History International Travel<30 days: No Contact w/Intl Traveler<30days: No Traveled to known affect area: No History of Present Illness HPI 26-year-old female with history of cardiomyopathy with ejection fraction of 10- 15% who presents via EMS for evaluation of edema. The patient reports chronic edema in the lower extremities, chronic orthopnea, worse over the past 1-2 days. The edema spreads from her lower legs to her lower abdomen/suprapubic region. She does note chronic orthopnea, slightly worse as well. She denies any chest pain, flank pain, dysuria, cough, fevers or chills. The patient was recently admitted here in November 26 for sepsis, urinary tract infection, discharged on November 28. She had echocardiogram during her hospitalization. She was felt to have a suspected urinary tract infection versus pneumonia. Blood cultures were negative. Urine culture was negative. The patient typically takes Bumex 2 mg twice a day for diuresis. She also is prescribed metolazone 5 mg daily basis however upon discharge she was not given a prescription for this and so she has not been using the metolazone of the past few days. She denies any dietary discretionsshe primarily Cheerios ever since discharge. She has no other complaints at this time. PFSH Past Medical History Arthritis: No Asthma: No Autoimmune Disease: No Blood Disorders: No Anxiety: No Depression: No Heart Rhythm Problems: Yes (TACHYCARDIA) Cancer: No Cardiomyopathy: Yes Cardiovascular Problems: Yes High Cholesterol: Yes Chemotherapy: No Chest Pain: Yes Congestive Heart Failure: Yes COPD: No Cerebrovascular Accident: No Diabetes: Yes Patient Takes Glucophage: No Diminished Hearing: No Endocrine: Yes Gastrointestinal Disorders: Yes (Pancreatitis) GERD: No Genitourinary: Yes (Chronic Kidney disease) Headaches: Yes Hiatal Hernia: No Hypertension: Yes Immune Disorder: No Implanted Vascular Access Dvce: Yes Kidney Stones: No Musculoskeletal: Yes (Back) Neurologic: Yes (Neuropathy) Psychiatric: No Reproductive: Yes (TUBAL) Respiratory: Yes Immunizations Current: Yes Migraines: Yes Radiation Therapy: No Renal Failure: Yes (stage 3 kidney disease) Seizures: No Sickle Cell Disease: No Sleep Apnea: No Thyroid Disease: No Ulcer: No Tetanus Vaccination: < 5 Years ?: Not LMP: 11/21/16 : 1 Para: 1 Miscarriage: 0 : 0 Tubal Ligation: Yes Past Surgical History Abdominal Surgery: Yes (CHOLECYSTECTOMY) AICD: Yes Arteriovenous Shunt: No Body Medical Devices: PT WORE EXTERNAL LIFE VEST 05/15/13 Cardiac Surgery: Yes (AICD/PACEMAKER PLACED & REPLACED (LEFT CHEST)) Section: Yes Cholecystectomy: Yes Ear Surgery: No Endocrine Surgery: No Eye Surgery: No Genitourinary Surgery: No Gynecologic Surgery: Yes (, TUBAL) Insulin Pump: No Joint Replacement: No Oral Surgery: No Pacemaker: Yes Thoracic Surgery: No Tonsillectomy: Yes (7 years old.) Other Surgery: Yes (, Tubalitigation, Gallbladder) Social History Alcohol Use: No Tobacco Use: No Substance Use: Yes (OCASSIONAL MARIJUANA, LAST TIME 11/04/16) Allergies-Medications (Allergen,Severity, Reaction): Coded Allergies: Toradol (Verified Adverse Reaction, Intermediate, SHAKING, 12/01/16) Reported Meds & Prescriptions Reported Meds & Active Scripts Active K-Tab (Potassium Chloride) 10 Meq Tab 10 Meq PO DAILY Bumex (Bumetanide) 1 Mg Tab 1 Mg PO BID Novolog Inj (Insulin Aspart) 1,000 Unit/10 Ml Vial 1-9 Units SQ ACHS Max dose at bedtime:( )units; sugars less than 70,(0)units; sugars 150-199,(1) unit; sugars 200-249,(3) units; sugars 250-299,(5) units; sugars 300-349,(7) units; sugars greater than 349,(9) units Zofran Odt (Ondansetron Odt) 4 Mg Tab 4 Mg SL Q6HR PRN Levaquin (Levofloxacin) 750 Mg Tab 750 Mg PO EVERY OTHER DAY Dilaudid (Hydromorphone HCl) 4 Mg Tab 4 Mg PO Q6HR PRN Xanax (Alprazolam) 0.5 Mg Tab 0.5 Mg PO Q12HR PRN Metolazone 5 Mg Tab 5 Mg PO DAILY 30 Days Lisinopril 10 Mg Tab 10 Mg PO DAILY 30 Days Carvedilol 6.25 Mg Tab 6.25 Mg PO BID 30 Days Review of Systems Except as stated in HPI: all other systems reviewed are Neg Physical Exam Narrative GENERAL: Well-developed well-nourished female in no acute distress SKIN: Warm and dry. HEAD: Atraumatic. Normocephalic. EYES: Pupils equal and round. No scleral icterus. No injection or drainage. ENT: No nasal bleeding or discharge. Mucous membranes pink and moist. NECK: Trachea midline. No JVD. CARDIOVASCULAR: Regular rate and rhythm. No murmur appreciated. RESPIRATORY: No accessory muscle use. Clear to auscultation. Breath sounds equal bilaterally. No crackles no wheezing or rhonchi GASTROINTESTINAL: Abdomen soft, non-tender, nondistended. Hepatic and splenic margins not palpable. MUSCULOSKELETAL: No obvious deformities. The patient has 1+ pitting edema from the feet to the lower abdomen. Tender to palpation. No erythema. No open wounds. NEUROLOGICAL: Awake and alert. No obvious cranial nerve deficits. Motor grossly within normal limits. Normal speech. Data Data Last Documented VS Vital Signs Date Time Temp Pulse Resp B/P Pulse Ox O2 Delivery O2 Flow Rate FiO2 12/01/16 15:54 18 12/01/16 15:45 97.8 80 129/74 98 Orders Complete Blood Count With Diff (12/01/16 15:44) Comprehensive Metabolic Panel (12/01/16 15:44) B-Type Natriuretic Peptide (12/01/16 15:44) Chest, Single Ap (12/01/16 ) Iv Access Insert/Monitor (12/01/16 15:46) Bumetanide Inj (Bumex Inj) (12/01/16 17:00) Urinalysis - C+S If Indicated (12/01/16 17:05) Morphine Inj (Morphine Inj) (12/01/16 17:15) Labs Laboratory Tests Test 12/01/16 16:00 White Blood Count 14.2 TH/MM3 Red Blood Count 3.73 MIL/MM3 Hemoglobin 10.8 GM/DL Hematocrit 31.6 % Mean Corpuscular Volume 84.7 FL Mean Corpuscular Hemoglobin 28.9 PG Mean Corpuscular Hemoglobin 34.1 % Concent Red Cell Distribution Width 17.3 % Platelet Count 111 TH/MM3 Mean Platelet Volume 11.0 FL Neutrophils (%) (Auto) 79.0 % Lymphocytes (%) (Auto) 14.6 % Monocytes (%) (Auto) 4.2 % Eosinophils (%) (Auto) 1.7 % Basophils (%) (Auto) 0.5 % Neutrophils # (Auto) 11.2 TH/MM3 Lymphocytes # (Auto) 2.1 TH/MM3 Monocytes # (Auto) 0.6 TH/MM3 Eosinophils # (Auto) 0.2 TH/MM3 Basophils # (Auto) 0.1 TH/MM3 CBC Comment AUTO DIFF Differential Total Cells 100 Counted Neutrophils % (Manual) 79 % Band Neutrophils % 7 % Lymphocytes % 8 % Monocytes % 5 % Eosinophils % 1 % Neutrophils # (Manual) 12.2 TH/MM3 Differential Comment FINAL DIFF MANUAL Toxic Granulation 1+ Toxic Vacuolation PRESENT Platelet Estimate LOW Platelet Morphology Comment NORMAL Sodium Level 137 MEQ/L Potassium Level 4.0 MEQ/L Chloride Level 102 MEQ/L Carbon Dioxide Level 25.9 MEQ/L Anion Gap 9 MEQ/L Blood Urea Nitrogen 59 MG/DL Creatinine 4.11 MG/DL Estimat Glomerular Filtration 13 ML/MIN Rate Random Glucose 84 MG/DL Calcium Level 8.4 MG/DL Total Bilirubin 0.3 MG/DL Aspartate Amino Transf 18 U/L (AST/SGOT) Alanine Aminotransferase 19 U/L (ALT/SGPT) Alkaline Phosphatase 126 U/L B-Type Natriuretic Peptide 359 PG/ML Total Protein 5.4 GM/DL Albumin 1.9 GM/DL [facility] Medical Decision Making Medical Screen Exam Complete: Yes Emergency Medical Condition: Yes Medical Record Reviewed: Yes Interpretation(s) CBC WBC 14.2 hemoglobin 10.8 platelet 111 otherwise unremarkable CMP BUN 59 and creatinine 4.11 up from baseline of 38/2.48 BNP 359 Differential Diagnosis Chronic edema, CHF exacerbation, panniculitis, anasarca, cellulitis, medication noncompliance Narrative Course 26-year-old female with cardiomyopathy, ejection fraction 10-15% presents with worsening lower extremity edema from her legs up to her suprapubic region in the abdomen. She has been seen here several times in the past with similar edema complaints. Her vital signs are stable. Her lungs sound clear. She does not appear septic. Her recent blood cultures and urine culture were reassuringly negative. She is currently on Levaquin prescription every other day as prescribed. She is using Bumex 2 mg twice a day for diuresis but apparently she's been out of her Metolozine ever since being discharged from the hospital 3 days ago. We'll check basic lab work, chest x-ray. The patient be given an IV dose of Bumex. The patient's laboratory result for acute on chronic renal insufficiency with a BUN 59, creatinine 4.11. Therefore the patient will be admitted for observation. Discussed with my attending who agrees with plan of care. The patient is agreeable. Discussed with Dr. Rosenthal is agreeable with admission, requests Doppler ultrasound of the lower extremities. Diagnosis Primary Impression: Fluid overload Qualified Code: E87.70 - Hypervolemia, unspecified hypervolemia type Additional Impression: Acute kidney injury Admitting Information Admitting Physician Requests: Observation Michael Welsh Dec 01, 2016 16:12
[2016-12-01 16:20] LABS: AUTOMATED NEUTROPHIL # 11.2 TH/MM3 (1.8-7.7); BASOPHIL # 0.1 TH/MM3 (0-0.2); BASOPHIL % 0.5 % (0.0-2.0); EOSINOPHIL # 0.2 TH/MM3 (0-0.4); EOSINOPHIL % 1.7 % (0.0-4.0); HEMATOCRIT 31.6 % (35.0-46.0); LYMPH % 14.6 % (9.0-44.0); LYMPHOCYTE # 2.1 TH/MM3 (1.0-4.8); MEAN CELL VOLUME 84.7 FL (80.0-100.0); MEAN CORPUSCULAR HEMOGLOBIN 28.9 PG (27.0-34.0); MEAN CORPUSCULAR HGB CONC 34.1 % (32.0-36.0); MONO % 4.2 % (0.0-8.0); PLATELET COUNT 111 TH/MM3 (150-450); RED BLOOD COUNT 3.73 MIL/MM3 (4.00-5.30); RED CELL DISTRIBUTION WIDTH 17.3 % (11.6-17.2); WHITE BLOOD COUNT 14.2 TH/MM3 (4.0-11.0)
[2016-12-01 16:26] LABS: HEMO FLAGS AUTO DIFF
--- NOTE | 2016-12-01 16:37 | RADRPT ---
EXAM DATE/TIME: 12/01/2016 15:55 [facility] COMPARISON: CHEST SINGLE AP, November 26, 2016, 12:05. INDICATIONS : Short of breath. Weakness. MEDICAL HISTORY : None. SURGICAL HISTORY : Pacemaker. ENCOUNTER: Initial ACUITY: 2 days PAIN SCORE: 5/10 LOCATION: Bilateral chest FINDINGS: There is global cardiomegaly. No focal consolidation. Pacer lead overlies right ventricle. No signifi cant effusion. No pneumothorax. CONCLUSION: 1. Cardiomegaly. No focal infiltrate or effusion. Elías Morley MD on December 01, 2016 at 16:35 Board Certified Radiologist. This report was verified electronically.
[2016-12-01 16:41] LABS: ALT (GPT) 19 U/L (10-53); ANION GAP 9 MEQ/L (5-15); AST (GOT) 18 U/L (15-37); BICARBONATE 25.9 MEQ/L (21.0-32.0); BLOOD UREA NITROGEN 59 MG/DL (7-18); CHLORIDE 102 MEQ/L (98-107); GLOMERULAR FILTRATION RATE 13 ML/MIN (>89); SODIUM (NA) 137 MEQ/L (136-145)
[2016-12-01 16:44] LABS: ALKALINE PHOSPHATASE 126 U/L (45-117); TOTAL BILIRUBIN ADULT 0.3 MG/DL (0.2-1.0)
[2016-12-01] MEDS ORDERED: BUMETANIDE INJ 1 MG/4 ML VIAL IV PUSH ONE (17:00)
[2016-12-01 17:03] LABS: BANDS 7 % (0-6); EOSINOPHILS 1 % (0-4); NEUTROPHIL # MANUAL DIFF 12.2 TH/MM3 (1.8-7.7); POLYS (SEG NEUTROPHILS) 79 % (16-70); WBC DIFF SAMPLE 100
[2016-12-01 17:04] LABS: PLATELET ESTIMATE SMEAR LOW (NORMAL); PLATELET MORPHOLOGY NORMAL (NORMAL); SCAN/DIFF FINAL DIFF MANUAL; TOXIC GRANULATION 1+ (NORMAL); TOXIC VACUOLATION PRESENT (NONE SEEN)
[2016-12-01] MEDS ORDERED: MORPHINE SULFATE 4 MG/ML INJ IV PUSH ONE (17:15)
[2016-12-01 17:29] VITALS: BP 116/71; PULSE 76; RESP 18; O2SAT 97
--- NOTE | 2016-12-01 17:48 | HHI.HP ---
[facility] Lucio Andrade DO Admission Diagnosis acute kidney injury, lower extremity edema Diagnoses: Chief Complaint: Abdominal pain and increasing edema Travel History International Travel<30 Days: No Contact w/Intl Traveler <30 Da: No Traveled to Known Affected Are: No History of Present Illness The 26-year-old female patient with past medical history which includes cardiomyopathy, systolic CHF with ejection fraction of 10-15%, pancreatitis, chronic kidney disease. Patient was recently admitted for sepsis on November urinary tract infection versus pneumonia and discharged November 28, 2016. Patient has completed prescription for Levaquin. Patient presents with complaints of increasing bilateral lower extremity edema and abdominal pain. Patient reports the swelling has gotten worse over the past one to 1-2 days also reports her orthopnea has gotten slightly worse. She' s been sleeping in a chair, BNP 359 on prior exam was the BNP was over 1000. Worse than the edema patient complains of pain in the lower abdominal area as well as bilateral lower extremities. Abdominal area as well as bilateral lower extremities are noted to be indurated warm to touch and erythematous. She denies any chest pain, flank pain, dysuria, cough, fevers or chills. Patient reports compliant with her medications with the exception of metolazone , she reports has run out of this medication at home. She denies any dietary discretions. Review of Systems Except as stated in HPI: all other systems reviewed are Neg Past Family Social History Past Medical History Cardiomyopathy, hypercholesterolemia, congestive heart failure, pancreatitis, chronic kidney disease. 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 Tubal ligation, cholecystectomy, Reported Medications K-Tab (Potassium Chloride) 10 Meq Tab 10 Meq PO DAILY Bumex (Bumetanide) 1 Mg Tab 1 Mg PO BID Novolog Inj (Insulin Aspart) 1,000 Unit/10 Ml Vial 1-9 Units SQ ACHS Max dose at bedtime:( )units; sugars less than 70,(0)units; sugars 150-199,(1) unit; sugars 200-249,(3) units; sugars 250-299,(5) units; sugars 300-349,(7) units; sugars greater than 349,(9) units Zofran Odt (Ondansetron Odt) 4 Mg Tab 4 Mg SL Q6HR PRN Levaquin (Levofloxacin) 750 Mg Tab 750 Mg PO EVERY OTHER DAY Dilaudid (Hydromorphone HCl) 4 Mg Tab 4 Mg PO Q6HR PRN Xanax (Alprazolam) 0.5 Mg Tab 0.5 Mg PO Q12HR PRN Metolazone 5 Mg Tab 5 Mg PO DAILY 30 Days Lisinopril 10 Mg Tab 10 Mg PO DAILY 30 Days Carvedilol 6.25 Mg Tab 6.25 Mg PO BID 30 Days Allergies: Coded Allergies: Toradol (Verified Adverse Reaction, Intermediate, SHAKING, 12/01/16) Family History Mother - rheumatoid arthritis, hypertension. Social History Patient denies smoking or drinking. Denies using illicit drugs. Physical Exam Vital Signs Vital Signs Date Time Temp Pulse Resp B/P Pulse Ox O2 Delivery O2 Flow Rate FiO2 12/01/16 17:33 17 12/01/16 17:29 76 18 116/71 97 Room Air 12/01/16 15:54 18 12/01/16 15:45 97.8 80 17 129/74 98 Physical Exam GENERAL: This is a obese 26-year-old female patient, who appears uncomfortable but in no apparent distress. SKIN: Lower abdominal area as well as bilateral lower extremities warm to touch and indurated erythematous and edematous EYES: Extraocular motions intact. No scleral icterus. No injection or drainage. CARDIOVASCULAR: Distant Regular rate and rhythm without murmurs, gallops, or rubs. RESPIRATORY: Clear to auscultation. Breath sounds equal bilaterally. No wheezes , rales, or rhonchi. GASTROINTESTINAL: Abdomen soft, tender to palpation bilateral lower quadrants, edematous but nondistended MUSCULOSKELETAL: Tenderness is present bilateral lower extremity edema NEUROLOGICAL: Awake and alert. No focal deficits appreciated. Motor and sensory grossly within normal limits. 4 out of 5 muscle strength in all muscle groups. Normal speech. Laboratory Laboratory Tests Test 12/01/16 16:00 White Blood Count 14.2 Red Blood Count 3.73 Hemoglobin 10.8 Hematocrit 31.6 Mean Corpuscular Volume 84.7 Mean Corpuscular Hemoglobin 28.9 Mean Corpuscular Hemoglobin 34.1 Concent Red Cell Distribution Width 17.3 Platelet Count 111 Mean Platelet Volume 11.0 Neutrophils (%) (Auto) 79.0 Lymphocytes (%) (Auto) 14.6 Monocytes (%) (Auto) 4.2 Eosinophils (%) (Auto) 1.7 Basophils (%) (Auto) 0.5 Neutrophils # (Auto) 11.2 Lymphocytes # (Auto) 2.1 Monocytes # (Auto) 0.6 Eosinophils # (Auto) 0.2 Basophils # (Auto) 0.1 CBC Comment AUTO DIFF Differential Total Cells 100 Counted Neutrophils % (Manual) 79 Band Neutrophils % 7 Lymphocytes % 8 Monocytes % 5 Eosinophils % 1 Neutrophils # (Manual) 12.2 Differential Comment FINAL DIFF MANUAL Toxic Granulation 1+ Toxic Vacuolation PRESENT Platelet Estimate LOW Platelet Morphology Comment NORMAL Sodium Level 137 Potassium Level 4.0 Chloride Level 102 Carbon Dioxide Level 25.9 Anion Gap 9 Blood Urea Nitrogen 59 Creatinine 4.11 Estimat Glomerular Filtration 13 Rate Random Glucose 84 Calcium Level 8.4 Total Bilirubin 0.3 Aspartate Amino Transf 18 (AST/SGOT) Alanine Aminotransferase 19 (ALT/SGPT) Alkaline Phosphatase 126 B-Type Natriuretic Peptide 359 Total Protein 5.4 Albumin 1.9 Result Diagram: 12/01/16 1600 12/01/16 1600 Imaging Last Impressions Chest X-Ray 12/01/16 0000 Signed Impressions: Service Date/Time: Thursday, December 01, 2016 15:55 - CONCLUSION: 1. Cardiomegaly. No focal infiltrate or effusion. Elías Morley MD Assessment and Plan Problem List: (1) Cellulitis ICD Code: L03.90 Status: Acute (2) TIMOTHY (acute kidney injury) ICD Code: N17.9 Status: Acute (3) Cardiomyopathy ICD Code: I42.9 Status: Chronic (4) Non-ischemic cardiomyopathy ICD Code: I42.8 Status: Chronic Assessment and Plan The 26-year-old female patient with past medical history which includes cardiomyopathy, systolic CHF with ejection fraction of 10-15%, pancreatitis, chronic kidney disease. Cellulitis of the lower abdominal area Cellulitis bilateral lower extremities Leukocytosis 14.2 Patient was recently hospitalized will give vancomycin 750 mg 1 Start clindamycin 600 mg every 6 Consult infectious disease UA reviewed negative protein negative nitrates negative leukocyte esterase Dilaudid 0.5 mg IV and Cotati 7.5 mg by mouth as needed for pain Bilateral lower extremity edema likely secondary to cellulitis With recent hospitalization will check ultrasound of bilateral lower extremities without DVT Acute kidney injury on chronic kidney disease urine eosinophils Renal ultrasound Patient is been taking Bumex will continue home dose Hold fosinopril and metolazone Consult nephrology Chronic systolic congestive heart failure does not appear to be an acute exacerbation Last echocardiogram 11/28/2016 patient has EF of 15%, patient has AICD in place Continue Coreg Hold lisinopril in light of acute kidney injury Continue Bumex hold metolazone CXR reviewed by myself and Dr. Rosenthal: Cardiomegaly. No focal infiltrate or effusion DVT prophylaxis with heparin 5000 units twice a day Recheck CBC and BMP in a.m. Discussed plan of care with patient, ear provider and RN Written by Cora Liu, acting as scribe for Dr. Rosenthal on 12/01/16 at 18:34. The documentation accurately reflects the work performed [id number] by me on at 18:34. Code Status Full code Discussed Condition With Patient Physician Certification 2 Midnight Certification Type: Admission for Inpatient Services Order for Inpatient Services The services are ordered in accordance with Medicare regulations or non- Medicare payer requirements, as applicable. In the case of services not specified as inpatient-only, they are appropriately provided as inpatient services in accordance with the 2-midnight benchmark. Estimated LOS (days): 4 days is the estimated time the patient will need to remain in the hospital, assuming treatment plan goals are met and no additional complications. Post-Hospital Plan: Home Cora Liu Dec 01, 2016 17:48 Olu Edwards MD Dec 02, 2016 10:11
[2016-12-01 17:53] LABS: BACTERIA, URINE RARE /hpf; BLOOD, URINE NEG (NEG); COMMENT (UR) CULT NOT INDICATED; CULTURE IF INDICATED CULT NOT INDICATED; GLUCOSE,URINE NEG (NEG); KETONE, URINE NEG (NEG); MUCUS URINE FEW /lpf (OCC); NITRITE,URINE NEG (NEG); PH, URINE 5.5 (5.0-8.5); SQUAMOUS EPITHELIAL CELL URINE <1 /hpf (0-5); URINE COLOR LIGHT-YELLOW (YELLW/STRAW)
[2016-12-01] MEDS ORDERED: ACETAMINOPHEN 325 MG TAB PO PRN (18:00)
[2016-12-01] MEDS ORDERED: ONDANSETRON HCL 4 MG/2 ML VIAL IVP PRN (18:00)
[2016-12-01] MEDS ORDERED: NALOXONE HCL 0.4 MG/ML AMP IV PRN (18:00)
[2016-12-01] MEDS ORDERED: SODIUM CHLORIDE 0.9% FLUSH 5 ML FLUSH FLUSH PRN (18:00)
[2016-12-01] MEDS ORDERED: VANCOMYCIN INJ 750 MG in SODIUM CHLOR 0.9% 250 ML INJ 250 ML IV ONE (18:30)
[2016-12-01] MEDS ORDERED: ACETAMINOPHEN/HYDROcodone 325 MG/7.5 MG TAB PO PRN (18:30)
[2016-12-01] MEDS: HYDROmorphone HCL PF 1 MG/ML VIAL IV PUSH PRN ×2 (19:57→20:00)
[2016-12-01] MEDS: SODIUM CHLORIDE 0.9% FLUSH 5 ML FLUSH FLUSH SCH (20:00)
[2016-12-01 20:24] VITALS: BP 122/56; PULSE 77; RESP 21; TEMP 98.8; O2SAT 97
--- NOTE | 2016-12-01 20:24 | RADRPT ---
EXAM DATE/TIME: 12/01/2016 19:30 [facility] COMPARISON: No previous studies available for comparison. INDICATIONS : Bilateral leg swelling. MEDICAL HISTORY : Hypercholesterolemia. Hypertension. . Neuropathy. Congestive heart failure. Cardiomyopathy. Tachycardia. Pancreatitis. Renal failure. Diabetes. Blood transfusion.SURGICAL HISTORY : Tonsillectomy.Tubal ligation. Cholecystectomy. section. Internal defibrillator. ENCOUNTER: Subsequent ACUITY: 1 day PAIN SCORE: 9/10 LOCATION: Bilateral legs. TECHNIQUE: Venous ultrasound of the left and right leg was performed from the inguinal ligament to the proximal calf. Real-time, color Doppler and spectral tracing, compression and augmentation techniques were us ed. FINDINGS: RIGHT LEG: There is normal compressibility of the deep venous system from the inguinal region to the proximal ca lf. No echogenic clot is seen in the lumen of the common femoral, femoral, popliteal, and posterior tibial veins. There is a normal response of the venous system to proximal and distal augmentation an d respiration. LEFT LEG: Patient declined exam CONCLUSION: 1. Negative DVT study right lower extremity. Patient declined exam on left leg due to pain. Elías Morley MD on December 01, 2016 at 20:21 Board Certified Radiologist. This report was verified electronically.
--- NOTE | 2016-12-01 20:25 | RADRPT ---
EXAM DATE/TIME: 12/01/2016 19:42 [facility] COMPARISON: No previous studies available for comparison. INDICATIONS : Increased BUN and Creatinine. MEDICAL HISTORY : Hypercholesterolemia. Hypertension. . Neuropathy. Congestive heart failure. Cardiomyopathy. Tachycardia. Pancreatitis. Renal failure. Diabetes. Blood transfusion. SURGICAL HISTORY : Tubal ligation. Cholecystectomy. Tonsillectomy. Internal defibrillator. section. ENCOUNTER: Subsequent ACUITY: 1 day PAIN SCORE: 9/10 LOCATION: Bilateral flank MEASUREMENTS: RIGHT KIDNEY: 12.6 x 5.4 x 4.8 cm LEFT KIDNEY: 12.1 x 4.4 x 4.9 cm FINDINGS: Bilateral kidneys are again noted to be atrophic and echogenic characteristic of medical renal diseas e. Bladder within normal limits. Spleen is enlarged to 16 cm. CONCLUSION: 1. Bilateral atrophic and echogenic kidneys characteristic of medical renal disease. Elías Morley MD on December 01, 2016 at 20:22 Board Certified Radiologist. This report was verified electronically.
[2016-12-01] MEDS ORDERED: BUMETANIDE 1 MG TAB PO SCH (21:00)
[2016-12-01] MEDS: CLINDAMYCIN INJ 600 MG in SODIUM CHLORIDE 0.9% INJ 100 ML IV SCH (21:32)
[2016-12-01] MEDS: CARVEDILOL 6.25 MG TAB PO SCH (21:33)
[2016-12-01] MEDS: HEPARIN SODIUM - SQ 10,000 UNITS/ML VIAL SQ SCH (21:34)
[2016-12-02] VITALS (9 sets, daily range): BP systolic 97–122; BP diastolic 54–73; PULSE 68–89; RESP 16–21; TEMP 97.8–98.9; O2SAT 97–100
[2016-12-02] MEDS: CLINDAMYCIN INJ 600 MG in SODIUM CHLORIDE 0.9% INJ 100 ML IV SCH ×4 (03:30→21:01)
[2016-12-02] MEDS: HYDROmorphone HCL PF 1 MG/ML VIAL IV PUSH PRN ×2 (03:39→09:47)
--- NOTE | 2016-12-02 04:35 | MB ---
cc: RUI GAO MD DATE OF CONSULTATION: 12/01/2016 REASON FOR CONSULTATION: Elevated BUN and creatinine, for evaluation. HISTORY OF PRESENT ILLNESS: This 26-year-old female with past medical history of cardiomyopathy, ischemic heart disease, ejection fraction of 10-15%, history of pancreatitis, chronic kidney disease was admitted multiple times in the past. The last one was just a week ago. She came to the hospital with increased swelling of the legs and shortness of breath. I was called to see the patient because of elevated BUN and creatinine. The patient has not been following regularly with any stenographic court reporter but she has been seen by Dr. Salmon in the past and also by Dr. Hicks when she was discharged from here in July. She has her baseline creatinine in the range of 2.4 to 1.9 and now she came in with a creatinine of 4.1. She was recently discharged 4 days ago with a creatinine of her baseline 2.4. The patient noticed increased swelling of her legs and has more worsening shortness of breath. She has been taking her Bumex at home and according to her she was taking it regularly. She denies any chest pain but she has shortness of breath increased with lying flat and with exertion. She has no dysuria, hematuria, difficulty in passing urine. Denies taking nonsteroidal anti-inflammatory drugs. She has generalized body pain and was taking hydromorphone. PAST MEDICAL HISTORY: 1. Ischemic heart disease 2. Congestive heart failure 3. Cardiomyopathy 4. Hyperlipidemia 5. History of pancreatitis 6. Chronic kidney disease. PAST SURGICAL HISTORY None. REVIEW OF SYSTEMS There is no history of fever. No sore throat. No headache, dizziness or blurring of vision. The patient has generalized weakness and generalized body pain. She has worsening shortness of breath, increased with exertion lying flat. She has nausea and vomited once. There is no abdominal pain. No history of diarrhea. Denies any dysuria, hematuria, difficulty passing urine. SOCIAL HISTORY There is no history of smoking or alcoholism. FAMILY HISTORY: Family history is noncontributory. ALLERGIES She is allergic to TORADOL. MEDICATIONS 1. Bumex 1 milligram p.o. b.i.d. 2. Carvedilol 6.2 milligrams b.i.d. 3. Potassium chloride 10 milliequivalents once a day. 4. One dose of vancomycin. 5. Clindamycin 600 milligrams IV q6 hours. 6. Zofran as needed. 7. Xanax as needed. 8. Dilaudid as needed. 9. [place] as needed. PHYSICAL EXAMINATION: The patient is awake, alert. She is not in acute distress. VITAL SIGNS: The last blood pressure is 116/71, temperature 97.8, oxygen saturation 97-98%. HEENT: Pupils equal and reactive to light. Nonicteric sclera, conjunctiva pale. Neck: Supple. JVD is not elevated. Lungs: The patient has bilateral decreased air entry with basilar rales and scattered wheezing. Heart: S1-S2, regular rhythm. Abdomen: Distended, soft, lax that there is no tenderness. Extremities: She has 2+ edema which is mainly pitting in nature. INVESTIGATIONS: WBC count is 14.2, hemoglobin 10.8, platelet count 111, neutrophils 79%, sodium 137, potassium 4.0, chloride 102, bicarb 25.9, BUN 59, creatinine 4.1, calcium 8.4, AST, ALT normal, alkaline phosphatase 126, BNP is 359, albumin is 1.9, total protein is 5.4, INR is 1.0. Urinalysis showing protein of 100, micro albumin to creatinine ratio in June was [id number]. IMAGING STUDIES The patient had chest x-ray done which shows that she has cardiomegaly with no focal infiltrate. Renal ultrasound was done in June of last year and it shows that both kidneys are 12.0 and 10.4 cm, echogenic and atrophic. ASSESSMENT/PLAN 1. Chronic kidney disease with acute kidney injury. 2. Generalized edema and proteinuria. 3. Cardiomyopathy with low ejection fraction. 4. History of pancreatitis. 5. Cellulitis of the lower abdomen and lower leg with leukocytosis. 6. Anemia. The patient has generalized edema and anasarca, also developed of leukocytosis and possible cellulitis. She was started on antibiotics, blood pressure is stable. I think patient needs more diuretics. I will change the Bumex to IV and also put her on metolazone. She was on metolazone before. Need to try to keep her in negative fluid balance. Clinically she is hemodynamically stable. I will also send serology for lupus and many of the secondary systemic disease. Thank you for the consultation and I will follow the patient over the weekend. I will ask Dr. Hicks to follow the patient from Saturday. MD PHYLLIS Valdes/CLAU /8:05 PM /3:53 AM
[2016-12-02 05:55] LABS: AUTOMATED NEUTROPHIL # 8.5 TH/MM3 (1.8-7.7); BASOPHIL # 0.1 TH/MM3 (0-0.2); BASOPHIL % 0.6 % (0.0-2.0); EOSINOPHIL # 0.2 TH/MM3 (0-0.4); EOSINOPHIL % 1.7 % (0.0-4.0); HEMATOCRIT 31.9 % (35.0-46.0); LYMPH % 21.9 % (9.0-44.0); LYMPHOCYTE # 2.6 TH/MM3 (1.0-4.8); MEAN CORPUSCULAR HEMOGLOBIN 28.4 PG (27.0-34.0); MEAN CORPUSCULAR HGB CONC 33.4 % (32.0-36.0); MONO % 4.5 % (0.0-8.0); NEUT % 71.3 % (16.0-70.0); PLATELET COUNT 90 TH/MM3 (150-450); RED BLOOD COUNT 3.75 MIL/MM3 (4.00-5.30); RED CELL DISTRIBUTION WIDTH 16.8 % (11.6-17.2); WHITE BLOOD COUNT 11.9 TH/MM3 (4.0-11.0)
[2016-12-02 06:00] LABS: HEMO FLAGS AUTO DIFF
[2016-12-02 06:24] LABS: BICARBONATE 24.7 MEQ/L (21.0-32.0); POTASSIUM 3.7 MEQ/L (3.5-5.1)
[2016-12-02] MEDS ORDERED: BUMETANIDE INJ 1 MG/4 ML VIAL IV PUSH SCH (09:00)
[2016-12-02 09:12] LABS: OVALOCYTES 1+ (NORMAL); PLATELET ESTIMATE SMEAR LOW (NORMAL); PLATELET MORPHOLOGY ENLARGED (NORMAL); SCAN/DIFF AUTO DIFF CONFIRMED
[2016-12-02] MEDS: SODIUM CHLORIDE 0.9% FLUSH 5 ML FLUSH FLUSH SCH ×2 (09:45→21:01)
[2016-12-02] MEDS: POTASSIUM CHLORIDE 10 MEQ CONTROLLED RELEASE TAB PO SCH (09:46)
[2016-12-02] MEDS: METOLAZONE 5 MG TAB PO SCH (09:46)
[2016-12-02] MEDS: CARVEDILOL 6.25 MG TAB PO SCH ×3 (09:46→21:00)
[2016-12-02] MEDS: BUMETANIDE INJ 1 MG/4 ML VIAL IV PUSH SCH ×2 (09:46→17:24)
[2016-12-02] MEDS: HEPARIN SODIUM - SQ 10,000 UNITS/ML VIAL SQ SCH ×2 (09:46→20:33)
--- NOTE | 2016-12-02 10:29 | HHI.PR ---
Subjective Remarks Patient still complains of pain in bilateral lower extremities however this is improved from yesterday Denies fevers or chills Feels better overall Denies chest pain or shortness of breath Denies cough and denies diarrhea. Objective Vitals Vital Signs Date Time Temp Pulse Resp B/P Pulse Ox O2 Delivery O2 Flow Rate FiO2 12/02/16 09:34 98 21 12/02/16 09:22 74 101/66 12/02/16 07:33 98.4 74 20 97/54 98 12/02/16 04:44 98.5 75 21 107/56 98 12/01/16 20:30 14 12/01/16 20:24 98.8 77 21 122/56 97 12/01/16 17:33 17 12/01/16 17:29 76 18 116/71 97 Room Air 12/01/16 15:54 18 12/01/16 15:45 97.8 80 17 129/74 98 I/O 12/01/16 12/01/16 12/01/16 12/02/16 12/02/16 12/02/16 07:00 15:00 23:00 07:00 15:00 23:00 Intake Total 180 ml 631 ml Balance 180 ml 631 ml Intake Oral 180 ml 480 ml IV Total 151 ml # Voids 1 2 # Bowel Movements 0 Result Diagram: 12/02/16 0424 12/02/16 0424 Imaging Last Impressions Lower Extremity Ultrasound 12/01/16 1727 Signed Impressions: Service Date/Time: Thursday, December 01, 2016 19:30 - CONCLUSION: 1. Negative DVT study right lower extremity. Patient declined exam on left leg due to pain. Elías Morley MD Renal Ultrasound 12/01/16 0000 Signed Impressions: Service Date/Time: Thursday, December 01, 2016 19:42 - CONCLUSION: 1. Bilateral atrophic and echogenic kidneys characteristic of medical renal disease. Elías Morley MD Chest X-Ray 12/01/16 0000 Signed Impressions: Service Date/Time: Thursday, December 01, 2016 15:55 - CONCLUSION: 1. Cardiomegaly. No focal infiltrate or effusion. Elías Morley MD Objective Remarks GENERAL: This is a obese 26-year-old female patient, lying in bed comfortably, NAD. SKIN: Lower abdominal area as well as bilateral lower extremities warm to touch and indurated erythematous and edematous - improving compared to previously. EYES: Extraocular motions intact. No scleral icterus. No injection or drainage. CARDIOVASCULAR: Distant Regular rate and rhythm without murmurs, gallops, or rubs. RESPIRATORY: Clear to auscultation. Breath sounds equal bilaterally. No wheezes , rales, or rhonchi. GASTROINTESTINAL: Abdomen soft, tender to palpation bilateral lower quadrants, edematous but nondistended MUSCULOSKELETAL: Tenderness is present bilateral lower extremity edema, mild pitting edema NEUROLOGICAL: Awake and alert. No focal deficits appreciated. Motor and sensory grossly within normal limits. 4 out of 5 muscle strength in all muscle groups. Normal speech. Medications and IVs Current Medications Medications (Trade) Dose Ordered Sig/Arnold Route Start Time Stop Time Status Last Admin (NS Flush) 2 ml UNSCH PRN FLUSH 12/01/16 18:00 (NS Flush) 2 ml BID FLUSH 12/01/16 21:00 12/02/16 09:45 (Tylenol) 650 mg Q4H PRN PO 12/01/16 18:00 (Zofran Inj) 4 mg Q6H PRN IVP 12/01/16 18:00 (Narcan Inj) 0.4 mg UNSCH PRN IV 12/01/16 18:00 (Heparin Inj) 5,000 units Q12HR SQ 12/01/16 21:00 12/02/16 09:46 (Xanax) 0.5 mg Q12HR PRN PO 12/01/16 18:30 (Coreg) 6.25 mg BID PO 12/01/16 21:00 12/02/16 09:46 (Zofran Odt) 4 mg Q6HR PRN SL 12/01/16 18:30 Potassium Chloride 10 meq 10 meq DAILY PO 12/02/16 09:00 12/02/16 09:46 (Cleocin Inj/NS Inj) 104 ml @ 208 mls/hr Q6H IV 12/01/16 20:00 12/02/16 09:45 (Dilaudid Pf Inj) 0.5 mg Q4H PRN IV PUSH 12/01/16 18:30 12/02/16 09:47 ([place] 7.5-325 Mg) 1 tab Q4H PRN PO 12/01/16 18:30 (Bumex Inj) 2 mg BID@,18 IV PUSH 12/02/16 09:00 12/02/16 09:46 (Zaroxolyn) 5 mg DAILY PO 12/02/16 09:00 12/02/16 09:46 Urinary Catheter: No Vascular Central Line Catheter: No A/P Problem List: (1) Cellulitis ICD Code: L03.90 Status: Acute Plan: Patient presents with cellulitis of the lower abdominal area and bilateral lower extremities with leukocytosis of 14.2. Patient admitted to the general medical floor and started on IV clindamycin, status post one-time dose of IV vancomycin. Infectious disease consulted - recommendations pending. Urinalysis reviewed with proteinuria negative nitrates, negative leukocyte esterase. Patient states [place] is not helping her pain. She states that she takes Dilaudid at home orally. I will do some oral Dilaudid. Negative DVT study the right lower extremity, reportedly patient declined exam on the left leg due to pain. (2) TIMOTHY (acute kidney injury) ICD Code: N17.9 Status: Acute Plan: AKA I with CKD stage III. Patients baseline creatinine and just from 2.1 to 2.5. Admitting on presentation up to 4. Nephrology consulted, appreciate recommendations. Patient with anasarca, oral diuretic discontinued and the patient was started by nephrology on IV Bumex and metolazone. Continue to monitor BUN/creatinine, strict I's and O's, will try to keep the patient negative fluid balance (3) Cardiomyopathy ICD Code: I42.9 Status: Chronic Plan: cardiomyopathy with last echocardiogram on 2 process a pulse of 17 with patient having an ejection fraction of 50%. Patient has an AICD in place. Continue Coreg, hold NORMAN inhibitor in light of acute kidney injury. Diuretics as per nephrology. Chest x-ray reviewed by myself shows cardiomegaly but no focal infiltrate or effusion and no peripheral vascular congestion. (4) Anasarca ICD Code: R60.1 Status: Acute Plan: Continue with diuresis as per nephrology recommendations. The patient currently on metolazone and IV Bumex 2 mg IV twice a day. (5) Acute on chronic systolic (congestive) heart failure ICD Code: I50.23 Status: Acute Plan: Patient presented with symptoms of orthopnea and increased edema. Patient currently on diuretics. Follow-up nephrology recommendations. Admitted echocardiogram pending. (6) Leukocytosis ICD Code: D72.829 Status: Acute Plan: Salicylate differential showed a WBC of 14 K, which is trending down on his Dilantin. We'll set this is likely secondary to cellulitis. Continue to monitor CBC with differential (7) Thrombocytopenia ICD Code: D69.6 Status: Acute Plan: Most of the penis likely secondary to acute illness. Platelet count 90 K today. No evidence of active bleeding. Continue to monitor platelets. 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
[2016-12-02] MEDS: HYDROmorphone HCL 4 MG TAB PO PRN ×2 (14:29→20:34)
--- NOTE | 2016-12-02 19:01 | HHI.NPPN ---
Subjective General Problems: Anemia, Heart Disease Renal Failure: Chronic, Acute History of Present Illness 26-year-old female with past medical history of cardiomyopathy, ischemic heart disease, ejection fraction of 10-15%, history of pancreatitis, chronic kidney disease was admitted multiple times in the past. The last one was just a week ago. She came to the hospital with increased swelling of the legs and shortness of breath. I was called to see the patient because of elevated BUN and creatinine. Additional Remarks Patient is alert, still has SOB but better, no chest pain. Review of Systems General Constitutional: Fatigue Respiratory Lungs: SOB, Cough Cardiovascular Cardiac: Edema, CONNORS Objective Data Data 12/01/16 12/02/16 19:00 07:00 Intake Total 180 ml 631 ml Balance 180 ml 631 ml Intake Oral 180 ml 480 ml IV Total 151 ml # Voids 1 2 # Bowel Movements 0 Vital Signs Date Time Temp Pulse Resp B/P Pulse Ox O2 Delivery O2 Flow Rate FiO2 12/02/16 15:47 97.8 68 20 110/62 98 12/02/16 11:18 97.9 73 16 106/58 97 12/02/16 09:34 98 21 12/02/16 09:22 74 101/66 12/02/16 07:33 98.4 74 20 97/54 98 12/02/16 04:44 98.5 75 21 107/56 98 12/01/16 20:30 14 12/01/16 20:24 98.8 77 21 122/56 97 -: 12/02/16 0424 12/02/16 0424 Physical Exam General Appearance: Well Nourished, No Acute Distress, Comfortable Eyes Eye Exam: Pupils Equal Neck Neck Exam: Neck Supple Pulmonary Resp Exam: No Distress, Crackles, Rhonchi, Decreased Bases, Diminished Breath Sounds Cardiology CV Exam: Regular, Normal Sinus Rhythm Gastrointestinal/Abdomen GI Exam: Soft, Non-Tender, Bowel Sounds Present Extremeties Extremities Exam: Moderate Edema, Pitting Edema, Dependent Edema Neurologic Neuro Exam: Alert, Awake, Oriented Psychiatric Psych Exam: Appropriate Responses Assessment/Plan Assessment Summary: TIMOTHY/Acute Renal Failure, Fluid/Volume Overload, CHF, CKD Stage IV Problem List: (1) HTN (hypertension) (2) Anxiety (3) Systolic CHF, acute on chronic (4) Chronic kidney disease (5) DM (diabetes mellitus) (6) Acute kidney injury (7) Fluid overload (8) Anasarca Plan Patient is on Bumex, urine out put is adequate. Also on Metolazone. Creatinine slightly better. Serology PND. Patient has nephrotic proteinuria. She had Renal Biopsy in past, done out side. Dr. Hicks will follow in AM and can try to get the record. Continue diuresis, try to keep in negative fluid balance. Problem Qualifiers (1) Chronic kidney disease: Qualified Code: N18.4 - Chronic kidney disease, stage 4 (severe) (2) Fluid overload: Qualified Code: E87.70 - Hypervolemia, unspecified hypervolemia type Jeromy Allen MD Dec 02, 2016 19:01
[2016-12-03] MEDS: CLINDAMYCIN INJ 600 MG in SODIUM CHLORIDE 0.9% INJ 100 ML IV SCH ×4 (02:28→20:59)
[2016-12-03] MEDS: HYDROmorphone HCL 4 MG TAB PO PRN ×4 (02:28→21:00)
[2016-12-03] MEDS: ONDANSETRON ODT 4 MG TAB SL PRN (04:19)
[2016-12-03] MEDS: ALPRAZolam 0.5 MG TAB PO PRN ×2 (04:20→20:59)
[2016-12-03 04:29] VITALS: BP 121/75; PULSE 70; RESP 21; TEMP 98.8; O2SAT 97
[2016-12-03 06:53] LABS: AUTOMATED NEUTROPHIL # 4.3 TH/MM3 (1.8-7.7); BASOPHIL # 0.1 TH/MM3 (0-0.2); BASOPHIL % 0.8 % (0.0-2.0); EOSINOPHIL # 0.2 TH/MM3 (0-0.4); EOSINOPHIL % 2.5 % (0.0-4.0); HEMATOCRIT 31.8 % (35.0-46.0); LYMPH % 32.6 % (9.0-44.0); LYMPHOCYTE # 2.4 TH/MM3 (1.0-4.8); MEAN CELL VOLUME 84.7 FL (80.0-100.0); MEAN CORPUSCULAR HEMOGLOBIN 28.8 PG (27.0-34.0); MONO % 4.4 % (0.0-8.0); NEUT % 59.7 % (16.0-70.0); PLATELET COUNT 105 TH/MM3 (150-450); RED BLOOD COUNT 3.75 MIL/MM3 (4.00-5.30); WHITE BLOOD COUNT 7.2 TH/MM3 (4.0-11.0)
[2016-12-03 06:58] LABS: HEMO FLAGS AUTO DIFF
[2016-12-03 07:22] LABS: BICARBONATE 29.2 MEQ/L (21.0-32.0); MAGNESIUM 1.9 MG/DL (1.5-2.5); POTASSIUM 3.8 MEQ/L (3.5-5.1)
[2016-12-03] MEDS: POTASSIUM CHLORIDE 10 MEQ CONTROLLED RELEASE TAB PO SCH (08:22)
[2016-12-03] MEDS: BUMETANIDE INJ 1 MG/4 ML VIAL IV PUSH SCH ×2 (08:23→18:05)
[2016-12-03] MEDS: METOLAZONE 5 MG TAB PO SCH (08:23)
[2016-12-03] MEDS: HEPARIN SODIUM - SQ 10,000 UNITS/ML VIAL SQ SCH ×2 (08:23→20:59)
[2016-12-03] MEDS: SODIUM CHLORIDE 0.9% FLUSH 5 ML FLUSH FLUSH SCH ×2 (08:24→21:00)
[2016-12-03 08:31] LABS: PLATELET ESTIMATE SMEAR LOW (NORMAL); PLATELET MORPHOLOGY NORMAL (NORMAL); SCAN/DIFF AUTO DIFF CONFIRMED
[2016-12-03 08:41] VITALS: BP 125/80; PULSE 87; RESP 18; TEMP 97.1; O2SAT 99
[2016-12-03] MEDS ORDERED: HYDROmorphone HCL 4 MG TAB PO ONE (10:00)
--- NOTE | 2016-12-03 10:52 | HHI.NPPN ---
Subjective General Problems: Anemia, Heart Disease Renal Failure: Chronic, Acute Interval History Sitting up in bed in no distress. Creatinine is better. Edema has improved. ( Caryn Borja) Review of Systems General Constitutional: Fatigue (Caryn Borja) Respiratory Lungs: SOB, Cough (Caryn Borja) Cardiovascular Cardiac: Edema, CONNORS (Caryn Borja) Musculoskeletal MS: Pain/Stiffness (Caryn Borja) Objective Data Data 12/02/16 12/03/16 19:00 07:00 Intake Total 700 ml 1400 ml Balance 700 ml 1400 ml Intake Oral 500 ml 1200 ml IV Total 200 ml 200 ml # Voids 3 6 # Bowel Movements 2 Vital Signs Date Time Temp Pulse Resp B/P Pulse Ox O2 Delivery O2 Flow Rate FiO2 12/03/16 08:41 97.1 87 18 125/80 99 12/03/16 04:29 98.8 70 21 121/75 97 12/02/16 23:30 98.9 72 18 122/71 100 12/02/16 20:51 98.3 89 21 120/73 98 12/02/16 20:44 99 21 12/02/16 15:47 97.8 68 20 110/62 98 12/02/16 11:18 97.9 73 16 106/58 97 (Caryn Borja) -: 12/03/16 0620 12/03/16 0620 Imaging Last 72 hours Impressions Lower Extremity Ultrasound 12/01/16 1727 Signed Impressions: Service Date/Time: Thursday, December 01, 2016 19:30 - CONCLUSION: 1. Negative DVT study right lower extremity. Patient declined exam on left leg due to pain. Elías Morley MD Renal Ultrasound 12/01/16 0000 Signed Impressions: Service Date/Time: Thursday, December 01, 2016 19:42 - CONCLUSION: 1. Bilateral atrophic and echogenic kidneys characteristic of medical renal disease. Elías Morley MD Chest X-Ray 12/01/16 0000 Signed Impressions: Service Date/Time: Thursday, December 01, 2016 15:55 - CONCLUSION: 1. Cardiomegaly. No focal infiltrate or effusion. Elías Morley MD (Caryn Borja) Physical Exam General Appearance: Well Developed, Well Nourished, No Acute Distress, Comfortable, Obese (Caryn Borja) Eyes Eye Exam: Pupils Equal (Caryn Borja) Neck Neck Exam: Neck Supple (Caryn Borja) Pulmonary Resp Exam: Breath Sounds Equal, No Distress, Crackles Resp Remarks bibasilar rales (Caryn Borja) Cardiology CV Exam: Regular, Normal Sinus Rhythm (Caryn Borja) Gastrointestinal/Abdomen GI Exam: Soft, Non-Tender, Bowel Sounds Present (Caryn Borja) Musculoskeletal MS Exam: Joints Intact, Normal Tone (Caryn Borja) Integumentary Skin Exam: Warm, Dry Skin Remarks pannus with erythema and edema, no open areas (Caryn Borja) Extremeties Extremities Exam: Moderate Edema, Pitting Edema, Dependent Edema (Caryn Borja) Neurologic Neuro Exam: Alert, Awake, Oriented, Speech Clear, Moving All Extremities ( Caryn Borja) Psychiatric Psych Exam: Appropriate Responses (Caryn Borja) Assessment/Plan Discussed Condition With: Patient Assessment Summary: TIMOTHY/Acute Renal Failure, Fluid/Volume Overload, CHF, CKD Stage IV Problem List: (1) Chronic kidney disease Plan: She has advanced renal dysfunction at baseline with proteinuria, had a renal Biopsy at some point in other facility in September she had creatinine 1.9, GFR 30s, which would be improvement to CKD 3 thought to be cardiorenal syndrome today her creatinine has improved since admission, K and C02 acceptable she ran out of Bumex a few days prior to admission, came in with fluid overload now on Bumex IV BID with metolazone, her edema is improving avoid IVF, I have stopped the fluids infusing monitor renal function avoid nephrotoxins I started Renvela for metabolic bone disorder (2) Systolic CHF, acute on chronic Plan: BNP low continue diuresing, follow fluid volume status I have asked the nurses to capture and document urine output and response to diuretics (3) HTN (hypertension) Plan: BP acceptable, she is on coreg along with diuretic therapy may benefit from NORMAN or ARB (4) DM (diabetes mellitus) Plan: Blood sugar acceptable, she is not on insulin diet controlled at this time, monitor for changes (5) Acute kidney injury Plan: see above (6) Fluid overload Plan: continue diuretics as above (7) Anasarca Plan: diuresis as above (8) Anxiety Plan: on xanax (9) Panniculitis Plan: on clindamycin, monitor clinically (Caryn Borja) Plan patient was seen and examined. Agree with above assessment and plan. Poor prognosis. She has cardiorenal syndrome. Poor cardiac function, on diuretics. ( John Hicks MD) Problem Qualifiers (1) Chronic kidney disease: Qualified Code: N18.4 - Chronic kidney disease, stage 4 (severe) (2) Fluid overload: Qualified Code: E87.70 - Hypervolemia, unspecified hypervolemia type Caryn Borja Dec 03, 2016 10:52 John Hicks MD Dec 03, 2016 11:52
[2016-12-03] MEDS: SEVELAMER CARBONATE 800 MG TAB PO SCH ×2 (13:27→18:05)
[2016-12-03 16:14] VITALS: BP 124/73; PULSE 75; RESP 18; TEMP 97; O2SAT 96
--- NOTE | 2016-12-03 18:19 | HHI.PR ---
Subjective Remarks Patient complains of severe pain in her private parts Pain in lower extremities and abdomen is much improved Denies fevers or chills Denies chest pain or shots of breath Patient afebrile with stable vital signs Objective Vitals Vital Signs Date Time Temp Pulse Resp B/P Pulse Ox O2 Delivery O2 Flow Rate FiO2 12/03/16 16:14 97.0 75 18 124/73 96 12/03/16 08:41 97.1 87 18 125/80 99 12/03/16 04:29 98.8 70 21 121/75 97 12/02/16 23:30 98.9 72 18 122/71 100 12/02/16 20:51 98.3 89 21 120/73 98 12/02/16 20:44 99 21 I/O 12/02/16 12/02/16 12/02/16 12/03/16 12/03/16 12/03/16 07:00 15:00 23:00 07:00 15:00 23:00 Intake Total 631 ml 700 ml 1400 ml Balance 631 ml 700 ml 1400 ml Intake Oral 480 ml 500 ml 1200 ml IV Total 151 ml 200 ml 200 ml # Voids 2 3 6 # Bowel Movements 2 Result Diagram: 12/03/16 0620 12/03/16 0620 Imaging Last Impressions Lower Extremity Ultrasound 12/01/16 1727 Signed Impressions: Service Date/Time: Thursday, December 01, 2016 19:30 - CONCLUSION: 1. Negative DVT study right lower extremity. Patient declined exam on left leg due to pain. Elías Morley MD Renal Ultrasound 12/01/16 0000 Signed Impressions: Service Date/Time: Thursday, December 01, 2016 19:42 - CONCLUSION: 1. Bilateral atrophic and echogenic kidneys characteristic of medical renal disease. Elías Morley MD Chest X-Ray 12/01/16 0000 Signed Impressions: Service Date/Time: Thursday, December 01, 2016 15:55 - CONCLUSION: 1. Cardiomegaly. No focal infiltrate or effusion. Elías Morley MD Objective Remarks GENERAL: This is a obese 26-year-old female patient, lying in bed comfortably, NAD. SKIN: Lower abdominal area as well as bilateral lower extremities warm to touch and indurated erythematous and edematous - improving compared to previously. EYES: Extraocular motions intact. No scleral icterus. No injection or drainage. CARDIOVASCULAR: Distant Regular rate and rhythm without murmurs, gallops, or rubs. RESPIRATORY: Clear to auscultation. Breath sounds equal bilaterally. No wheezes , rales, or rhonchi. GASTROINTESTINAL: Abdomen soft, tender to palpation bilateral lower quadrants, edematous but nondistended MUSCULOSKELETAL: Tenderness is present bilateral lower extremity edema, mild pitting edema NEUROLOGICAL: Awake and alert. No focal deficits appreciated. Motor and sensory grossly within normal limits. 4 out of 5 muscle strength in all muscle groups. Normal speech. Medications and IVs Current Medications Medications (Trade) Dose Ordered Sig/Arnold Route Start Time Stop Time Status Last Admin (NS Flush) 2 ml UNSCH PRN FLUSH 12/01/16 18:00 (NS Flush) 2 ml BID FLUSH 12/01/16 21:00 12/03/16 08:24 (Tylenol) 650 mg Q4H PRN PO 12/01/16 18:00 (Zofran Inj) 4 mg Q6H PRN IVP 12/01/16 18:00 (Narcan Inj) 0.4 mg UNSCH PRN IV 12/01/16 18:00 (Heparin Inj) 5,000 units Q12HR SQ 12/01/16 21:00 12/03/16 08:23 (Xanax) 0.5 mg Q12HR PRN PO 12/01/16 18:30 12/03/16 04:20 (Coreg) 6.25 mg BID PO 12/01/16 21:00 12/02/16 21:00 (Zofran Odt) 4 mg Q6HR PRN SL 12/01/16 18:30 12/03/16 04:19 Potassium Chloride 10 meq 10 meq DAILY PO 12/02/16 09:00 12/03/16 08:22 (Cleocin Inj/NS Inj) 104 ml @ 208 mls/hr Q6H IV 12/01/16 20:00 12/03/16 16:13 (Bumex Inj) 2 mg BID@09,18 IV PUSH 12/02/16 09:00 12/03/16 18:05 (Zaroxolyn) 5 mg DAILY PO 12/02/16 09:00 12/03/16 08:23 (Dilaudid) 4 mg Q6HR PRN PO 12/02/16 10:30 12/03/16 14:14 (Renvela) 800 mg TIDAC PO 12/03/16 12:00 12/03/16 18:05 (Dilaudid Pf Inj) 1 mg Q4H PRN IV PUSH 12/03/16 19:00 12/03/16 19:39 Urinary Catheter: No Vascular Central Line Catheter: No A/P Problem List: (1) Cellulitis ICD Code: L03.90 Status: Acute (2) TIMOTHY (acute kidney injury) ICD Code: N17.9 Status: Acute (3) Cardiomyopathy ICD Code: I42.9 Status: Chronic (4) Anasarca ICD Code: R60.1 Status: Acute (5) Acute on chronic systolic (congestive) heart failure ICD Code: I50.23 Status: Acute (6) Leukocytosis ICD Code: D72.829 Status: Acute (7) Thrombocytopenia ICD Code: D69.6 Status: Acute (8) Cardiorenal syndrome ICD Code: I13.10 Status: Acute Assessment and Plan (1) Cellulitis Plan: Patient presents with cellulitis of the lower abdominal area and bilateral lower extremities with leukocytosis of 14.2. Patient admitted to the general medical floor and started on IV clindamycin, status post one-time dose of IV vancomycin. Infectious disease consulted - recommendations pending. Urinalysis reviewed with proteinuria negative nitrates, negative leukocyte esterase. Patient states [place] is not helping her pain. She states that she takes Dilaudid at home orally. I will do some oral Dilaudid. Negative DVT study the right lower extremity, reportedly patient declined exam on the left leg due to pain. 12/03 patient with severe pain in her private parts. Redness and erythema and tenderness in the lower abdomen and bilateral lower extremities is much improved. Private part still has some erythema and is very tender to palpation. Continue IV clindamycin and will prescribe Dilaudid IV for breakthrough pain. (2) TIMOTHY (acute kidney injury) Plan: AKA I with CKD stage III. Patients baseline creatinine and just from 2.1 to 2.5. Admitting on presentation up to 4. Nephrology consulted, appreciate recommendations. Patient with anasarca, oral diuretic discontinued and the patient was started by nephrology on IV Bumex and metolazone. Continue to monitor BUN/creatinine, strict I's and O's, will try to keep the patient negative fluid balance 12/03 edema much improved. Acute kidney injury improving, creatinine trending down now 3.4. Patient has good urine output. Patient has cardiorenal syndrome, due to poor heart function, creatinine improving on diuretics. Avoid nephrotoxins, monitor BUN/creatinine. (3) Cardiomyopathy Plan: cardiomyopathy with last echocardiogram on 2 process a pulse of 17 with patient having an ejection fraction of 50%. Patient has an AICD in place. Continue Coreg, hold NORMAN inhibitor in light of acute kidney injury. Diuretics as per nephrology. Chest x-ray reviewed by myself shows cardiomegaly but no focal infiltrate or effusion and no peripheral vascular congestion. (4) Anasarca Plan: Continue with diuresis as per nephrology recommendations. The patient currently on metolazone and IV Bumex 2 mg IV twice a day. (5) Acute on chronic systolic (congestive) heart failure Plan: Patient presented with symptoms of orthopnea and increased edema. Patient currently on diuretics. Follow-up nephrology recommendations. Admitted echocardiogram pending. (6) Leukocytosis Plan: CBC with differential showed a WBC of 14 K, which is trending down on his Dilantin. Likely secondary to cellulitis. Leukocytosis now resolved down to 7.2 Continue to monitor CBC with differential (7) Thrombocytopenia Plan: Due to acute illness. Pelvic count initially 111, down to 90 and now trending up to 105. No evidence of active bleeding. Continue to monitor platelets. 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
[2016-12-03] MEDS: HYDROmorphone HCL PF 1 MG/ML VIAL IV PUSH PRN (19:39)
[2016-12-03 20:12] VITALS: BP 121/76; PULSE 80; RESP 18; TEMP 98; O2SAT 99
[2016-12-03] MEDS: CARVEDILOL 6.25 MG TAB PO SCH (21:00)
[2016-12-04] MEDS: HYDROmorphone HCL PF 1 MG/ML VIAL IV PUSH PRN ×4 (00:18→21:00)
[2016-12-04 01:25] VITALS: BP 118/77; PULSE 76; RESP 18; TEMP 98.2; O2SAT 96
[2016-12-04] MEDS: CLINDAMYCIN INJ 600 MG in SODIUM CHLORIDE 0.9% INJ 100 ML IV SCH ×4 (02:40→20:59)
[2016-12-04 05:14] VITALS: BP 122/74; PULSE 88; RESP 18; O2SAT 96
[2016-12-04] MEDS: HYDROmorphone HCL 4 MG TAB PO PRN ×3 (06:10→18:25)
[2016-12-04 06:11] LABS: AUTOMATED NEUTROPHIL # 4.8 TH/MM3 (1.8-7.7); BASOPHIL # 0.1 TH/MM3 (0-0.2); BASOPHIL % 1.5 % (0.0-2.0); EOSINOPHIL # 0.2 TH/MM3 (0-0.4); EOSINOPHIL % 2.2 % (0.0-4.0); HEMATOCRIT 33.5 % (35.0-46.0); HEMO FLAGS DIFF FINAL; LYMPH % 28.2 % (9.0-44.0); LYMPHOCYTE # 2.1 TH/MM3 (1.0-4.8); MEAN CORPUSCULAR HEMOGLOBIN 28.6 PG (27.0-34.0); MEAN CORPUSCULAR HGB CONC 33.7 % (32.0-36.0); NEUT % 63.1 % (16.0-70.0); PLATELET COUNT 107 TH/MM3 (150-450); RED BLOOD COUNT 3.94 MIL/MM3 (4.00-5.30); RED CELL DISTRIBUTION WIDTH 16.4 % (11.6-17.2); WHITE BLOOD COUNT 7.6 TH/MM3 (4.0-11.0)
[2016-12-04 06:29] LABS: BICARBONATE 27.1 MEQ/L (21.0-32.0); MAGNESIUM 1.9 MG/DL (1.5-2.5); POTASSIUM 4.2 MEQ/L (3.5-5.1)
[2016-12-04 06:32] VITALS: BP 134/80; PULSE 74; RESP 18; TEMP 98.2; O2SAT 97
[2016-12-04 08:00] VITALS: BP 126/83; PULSE 71; RESP 18; TEMP 97.7; O2SAT 97
[2016-12-04] MEDS: POTASSIUM CHLORIDE 10 MEQ CONTROLLED RELEASE TAB PO SCH (08:09)
[2016-12-04] MEDS: CARVEDILOL 6.25 MG TAB PO SCH ×2 (08:09→20:58)
[2016-12-04] MEDS: HEPARIN SODIUM - SQ 10,000 UNITS/ML VIAL SQ SCH ×2 (08:09→21:00)
[2016-12-04] MEDS: BUMETANIDE INJ 1 MG/4 ML VIAL IV PUSH SCH ×2 (08:10→18:26)
[2016-12-04] MEDS: SEVELAMER CARBONATE 800 MG TAB PO SCH ×3 (08:16→18:25)
[2016-12-04] MEDS: METOLAZONE 5 MG TAB PO SCH (08:16)
--- NOTE | 2016-12-04 10:03 | HHI.NPPN ---
Subjective General Problems: Anemia, Heart Disease Renal Failure: Chronic, Acute Interval History Renal function is better. Diuresing well. Requesting more pain medications for genital (pannus) pain. (Caryn Borja) Review of Systems General Constitutional: Fatigue (Caryn Borja) Respiratory Lungs: SOB, Cough (Caryn Borja) Cardiovascular Cardiac: Edema, CONNORS (Caryn Borja) Musculoskeletal MS: Pain/Stiffness (Caryn Borja) Objective Data Data 12/03/16 12/04/16 19:00 07:00 Intake Total 1000 ml Output Total 900 ml Balance 100 ml Intake Oral 800 ml IV Total 200 ml Output Urine Total 900 ml Vital Signs Date Time Temp Pulse Resp B/P Pulse Ox O2 Delivery O2 Flow Rate FiO2 12/04/16 08:00 97.7 71 18 126/83 97 12/04/16 06:32 98.2 74 18 134/80 97 12/04/16 05:14 88 18 122/74 96 12/04/16 02:36 22 12/04/16 02:36 22 12/04/16 01:25 98.2 76 18 118/77 96 12/03/16 20:12 98.0 80 18 121/76 99 12/03/16 16:14 97.0 75 18 124/73 96 (Caryn Borja) -: 12/04/16 0550 12/04/16 0530 Imaging Last 72 hours Impressions Lower Extremity Ultrasound 12/01/16 1727 Signed Impressions: Service Date/Time: Thursday, December 01, 2016 19:30 - CONCLUSION: 1. Negative DVT study right lower extremity. Patient declined exam on left leg due to pain. Elías Morley MD (Caryn Borja) Physical Exam General Appearance: Well Developed, Well Nourished, No Acute Distress, Comfortable, Obese (Caryn Borja) Eyes Eye Exam: Pupils Equal (Caryn Borja) Neck Neck Exam: Neck Supple (Caryn Borja) Pulmonary Resp Exam: Breath Sounds Equal, No Distress, Crackles Resp Remarks bibasilar rales (Caryn Borja) Cardiology CV Exam: Regular, Normal Sinus Rhythm (Cayrn Borja) Gastrointestinal/Abdomen GI Exam: Soft, Non-Tender, Bowel Sounds Present (Caryn Borja) Musculoskeletal MS Exam: Joints Intact, Normal Tone (Caryn Borja) Integumentary Skin Exam: Warm, Dry Skin Remarks pannus with erythema and edema, no open areas (Caryn Borja) Extremeties Extremities Exam: Moderate Edema, Pitting Edema, Dependent Edema (Caryn Borja) Neurologic Neuro Exam: Alert, Awake, Oriented, Speech Clear, Moving All Extremities ( Caryn Borja) Psychiatric Psych Exam: Appropriate Responses (Caryn Borja) Assessment/Plan Discussed Condition With: Patient Assessment Summary: TIMOTHY/Acute Renal Failure, Fluid/Volume Overload, Proteinuria , CHF, Diabetes Mellitus, CKD Stage IV Problem List: (1) Chronic kidney disease Plan: She has advanced renal dysfunction at baseline with proteinuria, had a renal Biopsy at some point in other facility in September she had creatinine 1.9, GFR 30s, which would be improvement to CKD 3 thought to be cardiorenal syndrome creatinine has improved with current treatment, K and C02 acceptable continue diuresis with Bumex IV BID and metolazone, monitor fluid volume status avoid IVF, low protein diet quantify proteinuria monitor renal function avoid nephrotoxins on Renvela for metabolic bone disorder (2) Systolic CHF, acute on chronic Plan: BNP low continue diuresing, follow fluid volume status I/O monitoring,. goal is negative fluid volume balance (3) Panniculitis Plan: on clindamycin, monitor clinically on Dilaudid, requesting it to be Q4h, attempt to reduce narcotic dosage, may be developing dependence (4) HTN (hypertension) Plan: BP acceptable, she is on coreg along with diuretic therapy may benefit from NORMAN or ARB (5) DM (diabetes mellitus) Plan: Blood sugar elevating, she is not on insulin will begin BG checks TID, may require insulin (6) Acute kidney injury Plan: see above (7) Fluid overload Plan: continue diuretics as above (8) Anasarca Plan: diuresis as above (9) Anxiety Plan: on xanax (Caryn Borja) Problem List: (1) Chronic kidney disease Plan: She has advanced renal dysfunction at baseline with proteinuria, had a renal Biopsy at some point in other facility in September she had creatinine 1.9, GFR 30s, which would be improvement to CKD 3 thought to be cardiorenal syndrome creatinine has improved with current treatment, K and C02 acceptable continue diuresis with Bumex IV BID and metolazone, monitor fluid volume status avoid IVF, low protein diet quantify proteinuria monitor renal function avoid nephrotoxins on Renvela for metabolic bone disorder (2) Systolic CHF, acute on chronic Plan: BNP low continue diuresing, follow fluid volume status I/O monitoring,. goal is negative fluid volume balance (3) Panniculitis Plan: on clindamycin, monitor clinically on Dilaudid, requesting it to be Q4h, attempt to reduce narcotic dosage, may be developing dependence (4) HTN (hypertension) Plan: BP acceptable, she is on coreg along with diuretic therapy may benefit from NORMAN or ARB (5) DM (diabetes mellitus) Plan: Blood sugar elevating, she is not on insulin will begin BG checks TID, may require insulin (6) Acute kidney injury Plan: see above (7) Fluid overload Plan: continue diuretics as above (8) Anasarca Plan: diuresis as above (9) Anxiety Plan: on xanax Plan patient was seen and examined. Renal function has improved. Bumex can be changed to PO. No need for dialysis. (John Hicks MD) Problem Qualifiers (1) Chronic kidney disease: Qualified Code: N18.4 - Chronic kidney disease, stage 4 (severe) (2) HTN (hypertension): Qualified Code: I15.1 - Hypertension secondary to other renal disorders (3) Fluid overload: Qualified Code: E87.70 - Hypervolemia, unspecified hypervolemia type Caryn Borja Dec 04, 2016 10:03 John Hicks MD Dec 04, 2016 10:26
[2016-12-04 12:00] VITALS: BP 125/78; PULSE 76; RESP 16; TEMP 98.5; O2SAT 98
--- NOTE | 2016-12-04 13:45 | HHI.PR ---
Subjective Remarks Follow-up for CHF exacerbation and groin cellulitis. The patient continues to complain of pain and swelling in her groin. She states that the swelling is improving some. She's been able to ambulate some. Shortness of breath is improving. She does not feel quite ready for discharge yet however, and feel's like she would be back in the hospital without a little more diuresis. Objective Vitals Vital Signs Date Time Temp Pulse Resp B/P Pulse Ox O2 Delivery O2 Flow Rate FiO2 12/04/16 12:00 98.5 76 16 125/78 98 12/04/16 08:00 97.7 71 18 126/83 97 12/04/16 06:32 98.2 74 18 134/80 97 12/04/16 05:14 88 18 122/74 96 12/04/16 02:36 22 12/04/16 02:36 22 12/04/16 01:25 98.2 76 18 118/77 96 12/03/16 20:12 98.0 80 18 121/76 99 12/03/16 16:14 97.0 75 18 124/73 96 I/O 12/03/16 12/03/16 12/03/16 12/04/16 12/04/16 12/04/16 07:00 15:00 23:00 07:00 15:00 23:00 Intake Total 1400 ml 1000 ml Output Total 900 ml Balance 1400 ml 100 ml Intake Oral 1200 ml 800 ml IV Total 200 ml 200 ml Output Urine Total 900 ml # Voids 6 # Bowel Movements 2 Result Diagram: 12/04/16 0550 12/04/16 0530 Imaging Last Impressions Lower Extremity Ultrasound 12/01/167 Signed Impressions: Service Date/Time: Thursday, December 01, 2016 19:30 - CONCLUSION: 1. Negative DVT study right lower extremity. Patient declined exam on left leg due to pain. Elías Morley MD Renal Ultrasound 12/01/16 0000 Signed Impressions: Service Date/Time: Thursday, December 01, 2016 19:42 - CONCLUSION: 1. Bilateral atrophic and echogenic kidneys characteristic of medical renal disease. Elías Morley MD Chest X-Ray 12/01/16 0000 Signed Impressions: Service Date/Time: Thursday, December 01, 2016 15:55 - CONCLUSION: 1. Cardiomegaly. No focal infiltrate or effusion. Elías Morley MD Objective Remarks GENERAL: Well-developed well-nourished. In no acute distress. SKIN: Warm and dry. Lower abdominal wall cellulitis. HEENT: Normocephalic. Pupils equal and round. Mucous membranes pink and moist. CARDIOVASCULAR: Regular rate and rhythm. No murmur appreciated. RESPIRATORY: No accessory muscle use. Clear to auscultation. Breath sounds equal bilaterally. GASTROINTESTINAL: Abdomen soft, non-tender, nondistended. Bowel sounds x4. MUSCULOSKELETAL: No obvious deformities. No clubbing or cyanosis. Lower extremity edema. NEUROLOGICAL: Awake and alert. No focal neurological deficits. Moves upper and lower extremities spontaneously. Normal speech. PSYCHIATRIC: Appropriate mood and affect; insight and judgment normal. A/P Problem List: (1) Cellulitis ICD Code: L03.90 Status: Acute (2) TIMOTHY (acute kidney injury) ICD Code: N17.9 Status: Acute (3) Cardiomyopathy ICD Code: I42.9 Status: Chronic (4) Anasarca ICD Code: R60.1 Status: Acute (5) Acute on chronic systolic (congestive) heart failure ICD Code: I50.23 Status: Acute (6) Leukocytosis ICD Code: D72.829 Status: Acute (7) Thrombocytopenia ICD Code: D69.6 Status: Acute (8) Cardiorenal syndrome ICD Code: I13.10 Status: Acute Assessment and Plan 26-year-old female with past medical history of CHF and CKD who presented with anasarca and cellulitis Acute exacerbation of chronic systolic CHF: Secondary to cardiomyopathy. Echocardiogram 11/28/16 showed EF 15% severely reduced systolic function. Continue carvedilol. Lisinopril on hold with TIMOTHY is below. Today receiving with oral metolazone and IV Bumex. Continue diuresis, consult cardiology for assistance. Acute kidney injury: Creatinine increased from 2.48 on 11/27/16 to 4.11 on . Likely cardiorenal. Nephrology consulted, appreciate input. Creatinine has continued to improve with diuresis. Lower abdominal cellulitis/panniculitis: Afebrile. Leukocytosis resolved. On IV clindamycin. Add nystatin powder. Continue oral and IV Dilaudid as needed for pain. DVT prophylaxis: Heparin Written by Jose Rosario, acting as scribe for Dr. Collier on 12/04/16 at 13:50. The documentation accurately reflects the work performed [id number] by me on at 13:50. Discharge Planning Follow cardiology recommendations. Hopefully discharge 12 days. Problem Qualifiers (1) Cellulitis: Qualified Code: L03.119 - Cellulitis of lower extremity, unspecified laterality (2) Cardiomyopathy: Qualified Code: O90.3 - Peripartum cardiomyopathy Jose Rosario Dec 04, 2016 13:45 Manasa Collier DO Dec 05, 2016 20:15
[2016-12-04] MEDS: NYSTATIN 100,000 U/GM PWD 15 GM BTL TOPICAL SCH ×2 (14:34→21:01)
[2016-12-04] MEDS: SODIUM CHLORIDE 0.9% FLUSH 5 ML FLUSH FLUSH SCH ×2 (14:34→20:59)
[2016-12-04 15:36] VITALS: BP 120/72; PULSE 75; RESP 18; TEMP 97.6; O2SAT 95
--- NOTE | 2016-12-04 18:34 | MB ---
cc: LONG GARCIA M.D. DATE OF CONSULTATION: 12/04/2016 REASON FOR CONSULTATION: Uncompensated heart failure. HISTORY OF PRESENT ILLNESS: Ms. Jones is a 26-year-old female, cardiomyopathy. This is her third hospitalization since the beginning of the year. This is the fourth hospitalization since October 04, admitted due to shortness of breath. She was found in acute heart failure. Diuretic was initiated. She still continues with edema and shortness of breath. Ejection fraction is 15% at the most. I was consulted for further evaluation and management. The chart was reviewed. The patient was evaluated. ALLERGIES Toradol. SOCIAL HISTORY Negative for smoking and drinking. FAMILY HISTORY Noncontributory to her current medical condition. MEDICATIONS 1. Cleocin IV. 2. Bumex. 3. Coreg. 4. Metolazone. 5. Reglan. REVIEW OF SYSTEMS: She refers tired, can barely walk a couple of feet. No chest pain. PHYSICAL EXAMINATION: Alert, fully oriented, pleasant as usual, talking to her brother. VITAL SIGNS: Blood pressure 120/72, pulse 75, respiratory rate 18. LUNGS: Ventilated. CARDIOVASCULAR: S1-S2. Regular, no gallop. ABDOMEN: Soft, distended because of heart failure. EXTREMITIES: Edema +2. EKG: No EKG was taken during hospitalization. LABORATORY DATA: Hemoglobin 11.3, white blood cells 7.6, potassium 4.2, creatinine 3.02. ASSESSMENT AND RECOMMENDATION: Ms. Jones has severe decompensated heart failure. She has heart failure class III-IV. She is on optimal medical treatment. She has increased creatinine, that was 4.1 on admission. Currently she is 3.02. Most likely this is cardiorenal. I am going to initiate Entresto. That may worsen the renal function for a day or two, but most likely that will improve in the long run. It will be started at the lower dose . Medication will be gradually increased. Also most likely I will increase the Coreg in the morning if the patient tolerates Entresto. BNP daily will be ordered. She will need to be referred to a transplant center for further evaluation and management. I will contact the [facility] team and refer the patient for further evaluation. She understands her condition is of care and her prognosis is guarded. I will closely monitor her. MD SMITHA Clements /5:26 PM /6:19 PM
[2016-12-04] MEDS: ALPRAZolam 0.5 MG TAB PO PRN (20:58)
[2016-12-04] MEDS: SACUBITRIL/VALSARTAN 24 MG-26 MG TAB PO SCH (20:59)
[2016-12-05] MEDS: CLINDAMYCIN INJ 600 MG in SODIUM CHLORIDE 0.9% INJ 100 ML IV SCH ×4 (01:57→21:05)
[2016-12-05] MEDS: HYDROmorphone HCL PF 1 MG/ML VIAL IV PUSH PRN ×4 (01:58→17:18)
[2016-12-05] MEDS: HYDROmorphone HCL 4 MG TAB PO PRN ×4 (04:37→19:20)
[2016-12-05 04:56] VITALS: BP 117/71; PULSE 77; RESP 18; TEMP 98.1; O2SAT 96
[2016-12-05 06:52] LABS: BICARBONATE 27.4 MEQ/L (21.0-32.0); POTASSIUM 4.3 MEQ/L (3.5-5.1)
[2016-12-05 07:55] VITALS: BP 133/82; PULSE 81; RESP 18; TEMP 96.5; O2SAT 96
[2016-12-05] MEDS: CARVEDILOL 6.25 MG TAB PO SCH ×2 (08:01→22:56)
[2016-12-05] MEDS: METOLAZONE 5 MG TAB PO SCH (08:01)
[2016-12-05] MEDS: SEVELAMER CARBONATE 800 MG TAB PO SCH ×3 (08:01→14:54)
[2016-12-05] MEDS: SACUBITRIL/VALSARTAN 24 MG-26 MG TAB PO SCH (08:01)
[2016-12-05] MEDS: POTASSIUM CHLORIDE 10 MEQ CONTROLLED RELEASE TAB PO SCH (08:02)
[2016-12-05] MEDS: BUMETANIDE INJ 1 MG/4 ML VIAL IV PUSH SCH ×2 (08:02→17:18)
[2016-12-05] MEDS: HEPARIN SODIUM - SQ 10,000 UNITS/ML VIAL SQ SCH ×2 (08:02→22:57)
[2016-12-05] MEDS: SODIUM CHLORIDE 0.9% FLUSH 5 ML FLUSH FLUSH SCH ×2 (08:04→22:56)
[2016-12-05] MEDS: NYSTATIN 100,000 U/GM PWD 15 GM BTL TOPICAL SCH ×2 (08:04→21:00)
[2016-12-05] MEDS: SACUBITRIL/VALSARTAN 49 MG-51 MG TAB PO SCH ×2 (09:00→22:56)
--- NOTE | 2016-12-05 09:00 | PD.CARD.PN ---
Subjective Subjective Remarks Feeling better this morning. Objective Medications Current Medications Medications (Trade) Dose Ordered Sig/Arnold Route Start Time Stop Time Status Last Admin (NS Flush) 2 ml UNSCH PRN FLUSH 12/01/16 18:00 (NS Flush) 2 ml BID FLUSH 12/01/16 21:00 12/05/16 08:04 (Tylenol) 650 mg Q4H PRN PO 12/01/16 18:00 (Zofran Inj) 4 mg Q6H PRN IVP 12/01/16 18:00 (Narcan Inj) 0.4 mg UNSCH PRN IV 12/01/16 18:00 (Heparin Inj) 5,000 units Q12HR SQ 12/01/16 21:00 12/05/16 08:02 (Xanax) 0.5 mg Q12HR PRN PO 12/01/16 18:30 12/04/16 20:58 (Coreg) 6.25 mg BID PO 12/01/16 21:00 12/05/16 08:01 (Zofran Odt) 4 mg Q6HR PRN SL 12/01/16 18:30 12/03/16 04:19 Potassium Chloride 10 meq 10 meq DAILY PO 12/02/16 09:00 12/05/16 08:02 (Cleocin Inj/NS Inj) 104 ml @ 208 mls/hr Q6H IV 12/01/16 20:00 12/05/16 08:03 (Bumex Inj) 2 mg BID@09,18 IV PUSH 12/02/16 09:00 12/05/16 08:02 (Zaroxolyn) 5 mg DAILY PO 12/02/16 09:00 12/05/16 08:01 (Dilaudid) 4 mg Q6HR PRN PO 12/02/16 10:30 12/05/16 04:37 (Renvela) 800 mg TIDAC PO 12/03/16 12:00 12/05/16 08:01 (Dilaudid Pf Inj) 1 mg Q4H PRN IV PUSH 12/03/16 19:00 12/05/16 08:03 (Mycostatin Powder) 1 applic Q12HR TOPICAL 12/04/16 13:45 12/05/16 08:04 (Entresto 24-26 Mg) 1 tab BID PO 12/04/16 21:00 12/05/16 08:01 Vital Signs / I&O Vital Signs Date Time Temp Pulse Resp B/P Pulse Ox O2 Delivery O2 Flow Rate FiO2 12/05/16 07:55 96.5 81 18 133/82 96 12/05/16 05:51 20 12/05/16 04:56 98.1 77 18 117/71 96 12/04/16 15:36 97.6 75 18 120/72 95 12/04/16 12:00 98.5 76 16 125/78 98 I/O 12/04/16 12/04/16 12/04/16 12/05/16 12/05/16 12/05/16 07:00 15:00 23:00 07:00 15:00 23:00 Intake Total 1200 ml 706 ml Output Total 1100 ml Balance 100 ml 706 ml Intake Oral 1000 ml 500 ml IV Total 200 ml 206 ml Output Urine Total 1100 ml # Voids 3 Physical Exam GENERAL: Well-nourished, obese, well-developed patient. SKIN: Warm and dry. HEAD: Normocephalic. EYES: No scleral icterus. No injection or drainage. NECK: Supple, trachea midline. No JVD or lymphadenopathy. CARDIOVASCULAR: Regular rate and rhythm without murmurs, gallops, or rubs. RESPIRATORY: Breath sounds equal bilaterally. No accessory muscle use. GASTROINTESTINAL: Abdomen soft, non-tender, nondistended. Obese with generalized edema extending into the pubic area and mild erythema across pannus EXTREMITIES: No cyanosis, or edema. Mild erythema in BLE. NEUROLOGICAL: Awake, alert, and oriented x 3. Non-focal. Laboratory Laboratory Tests Test 12/05/16 05:35 Sodium Level 136 MEQ/L Potassium Level 4.3 MEQ/L Chloride Level 99 MEQ/L Carbon Dioxide Level 27.4 MEQ/L Anion Gap 10 MEQ/L Blood Urea Nitrogen 46 MG/DL Creatinine 2.77 MG/DL Estimat Glomerular Filtration 21 ML/MIN Rate Random Glucose 113 MG/DL Calcium Level 8.4 MG/DL Phosphorus Level 4.8 MG/DL Albumin 2.2 GM/DL Imaging Last Impressions Lower Extremity Ultrasound 12/01/16 1757 Signed Impressions: Service Date/Time: Thursday, December 01, 2016 19:30 - CONCLUSION: 1. Negative DVT study right lower extremity. Patient declined exam on left leg due to pain. Elías Morley MD Renal Ultrasound 12/01/16 0000 Signed Impressions: Service Date/Time: Thursday, December 01, 2016 19:42 - CONCLUSION: 1. Bilateral atrophic and echogenic kidneys characteristic of medical renal disease. Elías Morley MD Chest X-Ray 12/01/16 0000 Signed Impressions: Service Date/Time: Thursday, December 01, 2016 15:55 - CONCLUSION: 1. Cardiomegaly. No focal infiltrate or effusion. Elías Morley MD Assessment and Plan Problem List: (1) ICD (implantable cardioverter-defibrillator), single, in situ Assessment and Plan: Evaluated by Dr. Wilson Stable. (2) Cellulitis Assessment and Plan: Improving on antibiotics. (3) Acute on chronic systolic (congestive) heart failure Assessment and Plan: EF 15% at most. Improving on Entresto/Bumex. C/O pubic pain from swelling. Entresto increased as creatinine and BP are improving. Assessment and Plan Continue current therapy per my d/w Dr. Cardoso. Problem Qualifiers (1) Cellulitis: Qualified Code: L03.119 - Cellulitis of lower extremity, unspecified laterality Naomi Frederick Dec 05, 2016 09:00
--- NOTE | 2016-12-05 11:10 | HHI.NPPN ---
Subjective General Problems: Anemia, Heart Disease Renal Failure: Chronic, Acute Interval History Renal function is better. She has excellent UOP. Edema improved. (Caryn Borja) Review of Systems General Constitutional: Fatigue (Caryn Borja) Respiratory Lungs: SOB, Cough (Caryn Borja) Cardiovascular Cardiac: Edema, CONNORS (Caryn Borja) Musculoskeletal MS: Pain/Stiffness (Caryn Borja) Objective Data Data 12/04/16 12/05/16 19:00 07:00 Intake Total 1200 ml 706 ml Output Total 1100 ml Balance 100 ml 706 ml Intake Oral 1000 ml 500 ml IV Total 200 ml 206 ml Output Urine Total 1100 ml # Voids 3 Vital Signs Date Time Temp Pulse Resp B/P Pulse Ox O2 Delivery O2 Flow Rate FiO2 12/05/16 07:55 96.5 81 18 133/82 96 12/05/16 05:51 20 12/05/16 04:56 98.1 77 18 117/71 96 12/04/16 15:36 97.6 75 18 120/72 95 12/04/16 12:00 98.5 76 16 125/78 98 (Caryn Borja) -: 12/04/16 0550 12/05/16 0535 Physical Exam General Appearance: Well Developed, Well Nourished, No Acute Distress, Comfortable, Obese (Caryn Borja) Eyes Eye Exam: Pupils Equal (Caryn Borja) Neck Neck Exam: Neck Supple (Caryn Borja) Pulmonary Resp Exam: Breath Sounds Equal, No Distress, Crackles Resp Remarks bibasilar rales (Caryn Borja) Cardiology CV Exam: Regular, Normal Sinus Rhythm, Good Perfusion (Caryn Borja) Gastrointestinal/Abdomen GI Exam: Soft, Non-Tender, Bowel Sounds Present (Caryn Borja) Musculoskeletal MS Exam: Joints Intact, Normal Tone (Caryn Borja) Integumentary Skin Exam: Warm, Dry Skin Remarks pannus with erythema and edema, no open areas (Caryn Borja) Extremeties Extremities Exam: Pedal Pulses Palpable, Moderate Edema (Caryn Borja) Neurologic Neuro Exam: Alert, Awake, Oriented, Speech Clear, Moving All Extremities ( Caryn Borja) Psychiatric Psych Exam: Appropriate Responses (Caryn Borja) Assessment/Plan Discussed Condition With: Patient Assessment Summary: TIMOTHY/Acute Renal Failure, Fluid/Volume Overload, Proteinuria , CHF, Diabetes Mellitus, CKD Stage IV Problem List: (1) Chronic kidney disease Plan: She has advanced renal dysfunction at baseline with proteinuria, had a renal Biopsy at some point in other facility in September she had creatinine 1.9, GFR 30s, which would be improvement to CKD 3 thought to be cardiorenal syndrome creatinine has improved daily since admission diuresing well, adequate UOP continue diuresis with Bumex BID and metolazone, change to oral route she is on daily KCL replacement, continue for the time being avoid IVF, low protein diet monitor renal function avoid nephrotoxins on Renvela for metabolic bone disorder, phos has improved (2) Systolic CHF, acute on chronic Plan: cardiology following, she has advanced heart failure Entresto started, to be referred to [facility] for transplant evaluation monitor weights, I/O, UOP, fluid volume status (3) Panniculitis Plan: on clindamycin, monitor clinically attempt to limit pain med dosage (4) HTN (hypertension) Plan: BP acceptable, she is on coreg along with diuretic therapy Entresto started by cardiology (5) DM (diabetes mellitus) Plan: BG 100s, not on insulin monitor (6) Acute kidney injury Plan: see above (7) Fluid overload Plan: improving, continue diuretics as above (8) Anasarca Plan: diuresis as above (9) Anxiety Plan: on xanax (Caryn Borja) Plan patient was seen and examined. Agree with above assessment and plan. (John Hicks MD) Problem Qualifiers (1) Chronic kidney disease: Qualified Code: N18.4 - Chronic kidney disease, stage 4 (severe) (2) HTN (hypertension): Qualified Code: I15.1 - Hypertension secondary to other renal disorders (3) Fluid overload: Qualified Code: E87.70 - Hypervolemia, unspecified hypervolemia type Caryn Borja Dec 05, 2016 11:10 John Hicks MD Dec 05, 2016 21:40
[2016-12-05 11:13] VITALS: BP 114/73; PULSE 76; RESP 18; TEMP 96.1; O2SAT 94
--- NOTE | 2016-12-05 12:28 | HHI.PR ---
Subjective Remarks Follow-up for CHF and groin cellulitis. Patient reports feeling improved today. She is still complaining of groin pain and swelling. Requesting increased pain medication, states she normally takes Dilaudid oral every 4 hours at home. Swelling is significantly improved from admission. Objective Vitals Vital Signs Date Time Temp Pulse Resp B/P Pulse Ox O2 Delivery O2 Flow Rate FiO2 12/05/16 11:13 96.1 76 18 114/73 94 12/05/16 07:55 96.5 81 18 133/82 96 12/05/16 05:51 20 12/05/16 04:56 98.1 77 18 117/71 96 12/04/16 15:36 97.6 75 18 120/72 95 I/O 12/04/16 12/04/16 12/04/16 12/05/16 12/05/16 12/05/16 07:00 15:00 23:00 07:00 15:00 23:00 Intake Total 1200 ml 706 ml Output Total 1100 ml Balance 100 ml 706 ml Intake Oral 1000 ml 500 ml IV Total 200 ml 206 ml Output Urine Total 1100 ml # Voids 3 Result Diagram: 12/04/16 0550 12/05/16 0535 Objective Remarks GENERAL: Well-developed well-nourished. In no acute distress. SKIN: Warm and dry. Lower abdominal wall/right swelling and cellulitis, improving. HEENT: Normocephalic. Pupils equal and round. Mucous membranes pink and moist. CARDIOVASCULAR: Regular rate and rhythm. No murmur appreciated. RESPIRATORY: No accessory muscle use. Clear to auscultation. Breath sounds equal bilaterally. GASTROINTESTINAL: Abdomen soft, non-tender, nondistended. Bowel sounds x4. MUSCULOSKELETAL: No obvious deformities. No clubbing or cyanosis. 1+ Lower extremity edema. NEUROLOGICAL: Awake and alert. No focal neurological deficits. Moves upper and lower extremities spontaneously. Normal speech. PSYCHIATRIC: Appropriate mood and affect; insight and judgment normal. A/P Problem List: (1) Cellulitis ICD Code: L03.90 Status: Acute (2) TIMOTHY (acute kidney injury) ICD Code: N17.9 Status: Acute (3) Cardiomyopathy ICD Code: I42.9 Status: Chronic (4) Anasarca ICD Code: R60.1 Status: Acute (5) Acute on chronic systolic (congestive) heart failure ICD Code: I50.23 Status: Acute (6) Leukocytosis ICD Code: D72.829 Status: Acute (7) Thrombocytopenia ICD Code: D69.6 Status: Acute (8) Cardiorenal syndrome ICD Code: I13.10 Status: Acute Assessment and Plan 26-year-old female with past medical history of CHF and CKD who presented with anasarca and cellulitis Acute exacerbation of chronic systolic CHF: Secondary to cardiomyopathy. Echocardiogram 11/28/16 showed EF 15% severely reduced systolic function. Continue carvedilol. Lisinopril on hold with TIMOTHY is below. Currently diuresing with oral metolazone and IV Bumex, continue for now. Cardiology consulted, appreciate recommendations. Started on Entresto, monitor renal function. Cardiology will refer the patient to [facility] for heart transplant. Acute kidney injury: Creatinine increased from 2.48 on 11/27/16 to 4.11 on . Likely cardiorenal. Nephrology consulted, appreciate input. Creatinine continues to improve with diuresis. Lower abdominal cellulitis/panniculitis: Likely secondary to anasarca from above , improving. Afebrile. Leukocytosis resolved. On IV clindamycin, transition to oral at discharge. Added nystatin powder. Continue oral and IV Dilaudid as needed for pain. DVT prophylaxis: Heparin Written by Jose Rosario, acting as scribe for Dr. Collier on 12/05/16 at 12:32. The documentation accurately reflects the work performed [id number] by me on at 12:32. Discharge Planning Discharge planning when cleared by specialists. Hopefully discharge 12 days. 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
[2016-12-05] MEDS: ONDANSETRON ODT 4 MG TAB SL PRN (14:59)
[2016-12-05] MEDS: ALPRAZolam 0.5 MG TAB PO PRN (14:59)
[2016-12-05 15:55] LABS: MYELOPEROXIDASE LESS THAN 1.0 AI (<1.0); PROTEINASE-3 LESS THAN 1.0 AI (<1.0)
[2016-12-05 16:32] VITALS: BP 122/75; PULSE 79; RESP 18; TEMP 96.4; O2SAT 94
[2016-12-05 19:30] VITALS: BP 158/98; PULSE 88; RESP 20; TEMP 98.3; O2SAT 95
[2016-12-05] MEDS ORDERED: SACUBITRIL/VALSARTAN 49 MG-51 MG TAB PO SCH (21:00)
[2016-12-06 00:41] VITALS: BP 126/76; PULSE 80; RESP 20; TEMP 97.9; O2SAT 95
[2016-12-06] MEDS: HYDROmorphone HCL PF 1 MG/ML VIAL IV PUSH PRN ×3 (00:59→07:52)
[2016-12-06] MEDS: HYDROmorphone HCL 4 MG TAB PO PRN ×3 (01:32→09:52)
[2016-12-06] MEDS: CLINDAMYCIN INJ 600 MG in SODIUM CHLORIDE 0.9% INJ 100 ML IV SCH ×2 (01:32→08:37)
[2016-12-06] MEDS: ALPRAZolam 0.5 MG TAB PO PRN (01:32)
[2016-12-06 04:37] VITALS: BP 160/89; PULSE 77; RESP 20; TEMP 97.6; O2SAT 98
[2016-12-06] MEDS: SEVELAMER CARBONATE 800 MG TAB PO SCH ×2 (05:46→09:17)
[2016-12-06 06:45] LABS: BICARBONATE 28.7 MEQ/L (21.0-32.0); POTASSIUM 3.9 MEQ/L (3.5-5.1)
[2016-12-06 08:00] VITALS: BP 127/86; PULSE 74; RESP 20; TEMP 97.4; O2SAT 99
--- NOTE | 2016-12-06 08:12 | HHI.NPPN ---
Subjective General Problems: Anemia, Heart Disease Renal Failure: Chronic, Acute Interval History patient was seen and examined. Edema is improving. Review of Systems General Constitutional: Fatigue Respiratory Lungs: SOB, Cough Cardiovascular Cardiac: Edema, CONNORS Musculoskeletal MS: Pain/Stiffness Objective Data Data 12/05/16 12/06/16 19:00 07:00 Intake Total 240 ml Balance 240 ml Intake Oral 240 ml # Voids 1 # Bowel Movements 2 Vital Signs Date Time Temp Pulse Resp B/P Pulse Ox O2 Delivery O2 Flow Rate FiO2 12/06/16 04:37 97.6 77 20 160/89 98 12/06/16 01:34 20 12/06/16 00:41 97.9 80 20 126/76 95 12/05/16 21:07 22 12/05/16 19:30 98.3 88 20 158/98 95 12/05/16 16:32 96.4 79 18 122/75 94 12/05/16 11:13 96.1 76 18 114/73 94 -: 12/04/16 0550 12/06/16 0538 Physical Exam General Appearance: Well Developed, Well Nourished, No Acute Distress, Comfortable, Obese Eyes Eye Exam: Pupils Equal Neck Neck Exam: Neck Supple Pulmonary Resp Exam: Breath Sounds Equal, No Distress, Crackles Cardiology CV Exam: Regular, Normal Sinus Rhythm, Good Perfusion Gastrointestinal/Abdomen GI Exam: Soft, Non-Tender, Bowel Sounds Present Musculoskeletal MS Exam: Joints Intact, Normal Tone Integumentary Skin Exam: Warm, Dry Extremeties Extremities Exam: Pedal Pulses Palpable, Moderate Edema Neurologic Neuro Exam: Alert, Awake, Oriented, Speech Clear, Moving All Extremities Psychiatric Psych Exam: Appropriate Responses Assessment/Plan Discussed Condition With: Patient Assessment Summary: TIMOTHY/Acute Renal Failure, Fluid/Volume Overload, Proteinuria , CHF, Diabetes Mellitus, CKD Stage IV Problem List: (1) Chronic kidney disease Plan: She has advanced renal dysfunction at baseline with proteinuria, had a renal Biopsy at some point in other facility in September she had creatinine 1.9, GFR 30s, which would be improvement to CKD 3 thought to be cardiorenal syndrome Renal function is poor, CKD stage III-IV. diuresing well, adequate UOP continue diuresis with Bumex BID and metolazone, change to oral route she is on daily KCL replacement, continue for the time being avoid IVF, low protein diet monitor renal function avoid nephrotoxins on Renvela for metabolic bone disorder, phosphorus has improved (2) Systolic CHF, acute on chronic Plan: cardiology following, she has advanced heart failure Entresto started, to be referred to [facility] for transplant evaluation monitor weights, I/O, UOP, fluid volume status (3) Panniculitis Plan: on clindamycin, monitor clinically attempt to limit pain med dosage (4) HTN (hypertension) Plan: BP acceptable, she is on coreg along with diuretic therapy Entresto started by cardiology (5) DM (diabetes mellitus) Plan: BG 100s, not on insulin monitor (6) Acute kidney injury Plan: see above (7) Fluid overload Plan: improving, continue diuretics as above (8) Anasarca Plan: diuresis as above (9) Anxiety Plan: on xanax Plan patient can be discharged from renal standpoint. She should be on Bumex and Metolazone. Problem Qualifiers (1) Chronic kidney disease: Qualified Code: N18.4 - Chronic kidney disease, stage 4 (severe) (2) HTN (hypertension): Qualified Code: I15.1 - Hypertension secondary to other renal disorders (3) Fluid overload: Qualified Code: E87.70 - Hypervolemia, unspecified hypervolemia type John Hicks MD Dec 06, 2016 08:11
[2016-12-06] MEDS: NYSTATIN 100,000 U/GM PWD 15 GM BTL TOPICAL SCH (09:00)
[2016-12-06] MEDS: BUMETANIDE INJ 1 MG/4 ML VIAL IV PUSH SCH (09:17)
[2016-12-06] MEDS: CARVEDILOL 6.25 MG TAB PO SCH (09:17)
[2016-12-06] MEDS: POTASSIUM CHLORIDE 10 MEQ CONTROLLED RELEASE TAB PO SCH (09:18)
[2016-12-06] MEDS: SACUBITRIL/VALSARTAN 49 MG-51 MG TAB PO SCH (09:18)
[2016-12-06] MEDS: HEPARIN SODIUM - SQ 10,000 UNITS/ML VIAL SQ SCH (09:18)
[2016-12-06] MEDS: METOLAZONE 5 MG TAB PO SCH (09:18)
[2016-12-06] MEDS: SODIUM CHLORIDE 0.9% FLUSH 5 ML FLUSH FLUSH SCH (09:19)
[2016-12-06] MEDS ORDERED: SACU1TAB4 PO (09:57)
[2016-12-06] MEDS ORDERED: CLIN1CAP6 PO (09:57)
[2016-12-06] MEDS ORDERED: BUME1TAB26 PO (09:57)
--- NOTE | 2016-12-06 09:57 | HHI.PR ---
Subjective Remarks Feeling better Objective Vital Signs Date Time Temp Pulse Resp B/P Pulse Ox O2 Delivery O2 Flow Rate FiO2 12/06/16 08:00 97.4 74 20 127/86 99 12/06/16 04:37 97.6 77 20 160/89 98 12/06/16 01:34 20 12/06/16 00:41 97.9 80 20 126/76 95 12/05/16 21:07 22 12/05/16 19:30 98.3 88 20 158/98 95 12/05/16 16:32 96.4 79 18 122/75 94 12/05/16 11:13 96.1 76 18 114/73 94 I/O 12/05/16 12/05/16 12/05/16 12/06/16 12/06/16 12/06/16 07:00 15:00 23:00 07:00 15:00 23:00 Intake Total 706 ml 240 ml Balance 706 ml 240 ml Intake Oral 500 ml 240 ml IV Total 206 ml # Voids 3 1 # Bowel Movements 2 Result Diagram: 12/04/16 0550 12/06/16 0538 Imaging Alert, fully oriented, walking Lungs: ventilated Heart: S1, S2 regular , no gallop abdomen: soft, no mass Ext: no edema Current Medications Medications (Trade) Dose Ordered Sig/Arnold Route Start Time Stop Time Status Last Admin (NS Flush) 2 ml UNSCH PRN FLUSH 12/01/16 18:00 (NS Flush) 2 ml BID FLUSH 12/01/16 21:00 12/06/16 09:19 (Tylenol) 650 mg Q4H PRN PO 12/01/16 18:00 (Zofran Inj) 4 mg Q6H PRN IVP 12/01/16 18:00 (Narcan Inj) 0.4 mg UNSCH PRN IV 12/01/16 18:00 (Heparin Inj) 5,000 units Q12HR SQ 12/01/16 21:00 12/06/16 09:18 (Xanax) 0.5 mg Q12HR PRN PO 12/01/16 18:30 12/06/16 01:32 (Coreg) 6.25 mg BID PO 12/01/16 21:00 12/06/16 09:17 (Zofran Odt) 4 mg Q6HR PRN SL 12/01/16 18:30 12/05/16 14:59 Potassium Chloride 10 meq 10 meq DAILY PO 12/02/16 09:00 12/06/16 09:18 (Cleocin Inj/NS Inj) 104 ml @ 208 mls/hr Q6H IV 12/01/16 20:00 12/06/16 08:37 (Bumex Inj) 2 mg BID@09,18 IV PUSH 12/02/16 09:00 12/06/16 09:17 (Zaroxolyn) 5 mg DAILY PO 12/02/16 09:00 12/06/16 09:18 (Renvela) 800 mg TIDAC PO 12/03/16 12:00 12/06/16 09:17 (Dilaudid Pf Inj) 1 mg Q4H PRN IV PUSH 12/03/16 19:00 12/06/16 07:52 (Mycostatin Powder) 1 applic Q12HR TOPICAL 12/04/16 13:45 12/05/16 08:04 (Entresto 49-51 Mg) 1 tab BID PO 12/05/16 09:00 12/06/16 09:18 (Dilaudid) 4 mg Q4HR PRN PO 12/05/16 16:00 12/06/16 05:47 Assessment and Plan Problem List: (1) Cardiomyopathy Status: Chronic Plan: Post (2) Systolic CHF, acute on chronic Status: Acute Plan: CHF II-III. Improving. Tolerating Entresto. 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
[2016-12-06] MEDS ORDERED: SACUBITRIL/VALSARTAN 49 MG-51 MG TAB PO SCH (10:00)
--- NOTE | 2016-12-06 10:17 | HHI.DS ---
Discharge Summary Admission Date Dec 01, 2016 at 17:57 Discharge Date: Dec 06, 2016 Admitting Diagnosis acute kidney injury, lower extremity edema (1) Cellulitis ICD Code: L03.90 Diagnosis: Secondary (2) TIMOTHY (acute kidney injury) ICD Code: N17.9 Diagnosis: Principal (3) Cardiomyopathy ICD Code: I42.9 Diagnosis: Principal (4) Anasarca ICD Code: R60.1 Diagnosis: Principal (5) Acute on chronic systolic (congestive) heart failure ICD Code: I50.23 Diagnosis: Principal (6) Leukocytosis ICD Code: D72.829 Diagnosis: Secondary (7) Cardiorenal syndrome ICD Code: I13.10 Diagnosis: Principal Procedures none Brief History - From Admission The 26-year-old female patient with past medical history which includes cardiomyopathy, systolic CHF with ejection fraction of 10-15%, pancreatitis, chronic kidney disease. Patient was recently admitted for sepsis on November urinary tract infection versus pneumonia and discharged November 28, 2016. Patient has completed prescription for Levaquin. Patient presents with complaints of increasing bilateral lower extremity edema and abdominal pain. Patient reports the swelling has gotten worse over the past one to 1-2 days also reports her orthopnea has gotten slightly worse. She' s been sleeping in a chair, BNP 359 on prior exam was the BNP was over 1000. Worse than the edema patient complains of pain in the lower abdominal area as well as bilateral lower extremities. Abdominal area as well as bilateral lower extremities are noted to be indurated warm to touch and erythematous. She denies any chest pain, flank pain, dysuria, cough, fevers or chills. Patient reports compliant with her medications with the exception of metolazone , she reports has run out of this medication at home. She denies any dietary discretions. CBC/BMP: 12/04/16 0550 12/06/16 0538 Significant Findings Laboratory Tests Test 12/04/16 12/04/16 12/05/16 12/06/16 05:30 05:50 05:35 05:38 Blood Urea Nitrogen 51 MG/DL (7-18) 46 MG/DL (7-18) 42 MG/DL (7-18) Creatinine 3.02 MG/DL 2.77 MG/DL 2.87 MG/DL (0.50-1.00) (0.50-1.00) (0.50-1.00) Estimat Glomerular Filtration 19 ML/MIN (>89) 21 ML/MIN (>89) 20 ML/MIN (>89) Rate Random Glucose 137 MG/DL 113 MG/DL 139 MG/DL (74-106) (74-106) (74-106) Calcium Level 8.3 MG/DL 8.4 MG/DL 8.3 MG/DL (8.5-10.1) (8.5-10.1) (8.5-10.1) Phosphorus Level 5.0 MG/DL 5.0 MG/DL (2.5-4.9) (2.5-4.9) Albumin 2.2 GM/DL 2.2 GM/DL 2.0 GM/DL (3.4-5.0) (3.4-5.0) (3.4-5.0) Red Blood Count 3.94 MIL/MM3 (4.00-5.30) Hemoglobin 11.3 GM/DL (11.6-15.3) Hematocrit 33.5 % (35.0-46.0) Platelet Count 107 TH/MM3 (150-450) Imaging Last Impressions Lower Extremity Ultrasound 12/01/161726 Signed Impressions: Service Date/Time: Thursday, December 01, 2016 19:30 - CONCLUSION: 1. Negative DVT study right lower extremity. Patient declined exam on left leg due to pain. Elías Morley MD Renal Ultrasound 12/01/16 Signed Impressions: Service Date/Time: Thursday, December 01, 2016 19:42 - CONCLUSION: 1. Bilateral atrophic and echogenic kidneys characteristic of medical renal disease. Elías Morley MD Chest X-Ray 12/01/16 Signed Impressions: Service Date/Time: Thursday, December 01, 2016 15:55 - CONCLUSION: 1. Cardiomegaly. No focal infiltrate or effusion. Elías Morley MD PE at Discharge GENERAL: Well-developed well-nourished. In no acute distress. SKIN: Warm and dry. Lower abdominal wall/right swelling and cellulitis, improving. HEENT: Normocephalic. Pupils equal and round. Mucous membranes pink and moist. CARDIOVASCULAR: Regular rate and rhythm. No murmur appreciated. RESPIRATORY: No accessory muscle use. Clear to auscultation. Breath sounds equal bilaterally. GASTROINTESTINAL: Abdomen soft, non-tender, nondistended. Bowel sounds x4. MUSCULOSKELETAL: No obvious deformities. No clubbing or cyanosis. 1+ Lower extremity edema. NEUROLOGICAL: Awake and alert. No focal neurological deficits. Moves upper and lower extremities spontaneously. Normal speech. PSYCHIATRIC: Appropriate mood and affect; insight and judgment normal. Pt update on day of discharge The patient feels well today and is hoping to go home. Cleared by nephrology and cardiology. He states she only has about one day worth of her Xanax and Dilaudid at home, and is asking for refill before she sees her PCP. Hospital Course 26-year-old female with past medical history of CHF and CKD who presented with anasarca and cellulitis Acute exacerbation of chronic systolic CHF: Secondary to cardiomyopathy. Echocardiogram 11/28/16 showed EF 15% severely reduced systolic function. Continue carvedilol. Lisinopril discontinued, started on Entresto. Diuresed with oral metolazone and IV Bumex, continue oral at discharge. Cardiology consulted, appreciate recommendations. Started on Entresto, dose titrated up. Cardiology plans to refer the patient to [facility] for heart transplant. Cardiology requested follow-up BMP next week and outpatient follow- up. Acute kidney injury: Creatinine increased from 2.48 on 11/27/16 to 4.11 on . Likely cardiorenal. Nephrology consulted, appreciate input. Creatinine improved with diuresis. Lower abdominal cellulitis/panniculitis: Likely secondary to anasarca from above , improving. Afebrile. Leukocytosis resolved. Received IV clindamycin, transitioned to oral at discharge. Added nystatin powder. Continue oral Dilaudid as needed for pain. Pt Condition on Discharge: Stable Discharge Disposition: Discharge Home Discharge Time: > 30 minutes Discharge Instructions DIET: Follow Instructions for: Heart Healthy Diet, Diabetic Diet Activities you can perform: Regular-No Restrictions Follow up Referrals: Cardiology - 2 Weeks with Leona Cardoso MD Nephrology - 2 Weeks with Jeromy Allen MD PCP Follow-up - 1 Week with Lucio Andrade DO New Orders: BASIC METABOLIC PROF - 12/10/16 New Medications: Clindamycin (Clindamycin) 300 Mg Cap 300 MG PO TID Infection #12 Ref 0 CAP Sacubitril-Valsartan (Entresto) 97-103 Mg Tab 1 TAB PO DAILY Heart Failure #30 Ref 6 TAB Changed Medications: Bumetanide (Bumex) 1 Mg Tab 2 MG PO BID Fluid #120 Ref 6 TAB (Changed from: 1 MG; 60; Refills: 0) Continued Medications: Alprazolam (Xanax) 0.5 Mg Tab 0.5 MG PO Q12HR PRN Anxiety #10 TAB (This prescription has been renewed) Carvedilol (Carvedilol) 6.25 Mg Tab 6.25 MG PO BID Days 30 Ref 0 TAB Hydromorphone (Dilaudid) 4 Mg Tab 4 MG PO Q6HR PRN PAIN #20 TAB (This prescription has been renewed) Insulin Aspart Inj (Novolog Inj) 1,000 Unit/10 Ml Vial 1-9 UNITS SQ ACHS Max dose at bedtime:( )units; sugars less than 70,(0)units; sugars 150-199,(1) unit; sugars 200-249,(3) units; sugars 250-299,(5) units; sugars 300-349,(7) units; sugars greater than 349,(9) units Blood Sugar Management #10 Ref 0 ML Metolazone (Metolazone) 5 Mg Tab 5 MG PO DAILY Days 30 Ref 0 TAB Ondansetron Odt (Zofran Odt) 4 Mg Tab 4 MG SL Q6HR PRN Nausea/Vomiting #30 Ref 0 TAB Potassium Chloride ER (K-Tab) 10 Meq Tab 10 MEQ PO DAILY Electrolyte Replacement #30 Ref 0 TAB Discontinued Medications: Levofloxacin (Levaquin) 750 Mg Tab 750 MG PO EVERY OTHER DAY Infection #3 TAB Lisinopril (Lisinopril) 10 Mg Tab 10 MG PO DAILY Days 30 Ref 0 TAB Additional Information Written by Jose Rosario, acting as scribe for Dr. Collier on 12/06/16 at 10:17. The documentation accurately reflects the work performed [id number] by me on at 10:17. Jose Rosario Dec 06, 2016 10:17 am Manasa Collier DO Dec 06, 2016 6:11 pm
[2016-12-06] MEDS ORDERED: ALPR.5 PO (10:22)
[2016-12-06] MEDS ORDERED: DILA4TAB2 PO (10:22)
[2016-12-06] MEDS ORDERED: SACUBITRIL/VALSARTAN 97 MG-103 MG TAB PO SCH (21:00)
[2016-12-07] MEDS ORDERED: BUMETANIDE 1 MG TAB PO SCH (09:00)
== END 2016-12-06 11:25 | disposition home or self-care (01) | DRG 602 ==
LOC: NEPC 15:30 → NEDA 17:29 → OBSVTOIN 17:57 → NEPGCP 20:16 → NEDA 12-03 22:03
PROVIDERS: ADMIT Hospitalist; ATTEND Hospitalist
DX: L03.311 Cellulitis of abdominal wall (principal); I50.23 Acute on chronic systolic (congestive) heart failure; I42.8 Other cardiomyopathies; N18.4 Chronic kidney disease, stage 4 (severe); D69.6 Thrombocytopenia, unspecified; E88.89 Other specified metabolic disorders; N17.9 Acute kidney failure, unspecified; I13.0 Hypertensive heart and chronic kidney disease with heart failure and stage 1 through stage 4 chronic kidney disease, or unspecified chronic kidney disease; L03.115 Cellulitis of right lower limb; L03.116 Cellulitis of left lower limb; Z95.810 Presence of automatic (implantable) cardiac defibrillator; E78.5 Hyperlipidemia, unspecified; D64.9 Anemia, unspecified; E66.9 Obesity, unspecified; Z68.32 Body mass index [BMI] 32.0-32.9, adult; F41.9 Anxiety disorder, unspecified; E11.9 Type 2 diabetes mellitus without complications; Z79.4 Long term (current) use of insulin
CPT/HCPCS: 71010; 76775; 76937; 80048; 80053; 80069; 81001; 82948; 83735; 83880; 84100; 85007; 85025; 85027; 86021; 86038; 86160; 87205; 93970; 96374; 96375; J1170; J1644; J2270; J3370; J7050

== ENCOUNTER 2016-12-09 15:15 | Inpatient (IN) | payer MEDICARE, MEDICAID ==
[~2016-12-09] VITALS: Ht 162.6 cm; Wt 87.8 kg
[~2016-12-09 15:15] MED LIST changes: +CLIN1CAP6 PO; -INSU-169; -LEVA750T PO; -LISI10TA3 PO; +SACU1TAB4 PO
[2016-12-09 15:20] VITALS: BP 139/99; PULSE 114; RESP 22; TEMP 100.7; O2SAT 93
[2016-12-09] MEDS ORDERED: SODIUM CHLORIDE 0.9% FLUSH 5 ML FLUSH IVF PRN (15:30)
[2016-12-09 15:33] VITALS: BP 139/99; PULSE 114; RESP 22; TEMP 100.7; O2SAT 93
--- NOTE | 2016-12-09 15:59 | RADRPT ---
EXAM DATE/TIME: 12/09/2016 15:31 [facility] COMPARISON: CHEST PA & LAT, March 29, 2013, 18:51. INDICATIONS : Short of breath MEDICAL HISTORY : None. SURGICAL HISTORY : Pacemaker. ENCOUNTER: Initial ACUITY: 2 days PAIN SCORE: 0/10 LOCATION: Bilateral chest FINDINGS: PA and lateral views of the chest demonstrate cardiomegaly with pacer lead overlying right ventricle. There is some mild peribronchial thickening. No focal infiltrate or effusion. No pneumothorax. CONCLUSION: 1. Peribronchial thickening without focal infiltrate. Cardiomegaly. Elías Morley MD on December 09, 2016 at 15:56 Board Certified Radiologist. This report was verified electronically.
--- NOTE | 2016-12-09 16:01 | PD ---
Physical Exam Narrative This is a 26-year-old female history of cardiomyopathy, CHF, who is being worked up for the transplant list at [place], who presents today with complaints of pleuritic chest pain with cough and shortness of breath. The patient reports fever of 102.4 at home. She states she took Tylenol. She denies any productive color in her cough. Patient states she was admitted last week for similar symptoms. She has no other complaints time my examination. Data Data Last Documented VS Vital Signs Date Time Temp Pulse Resp B/P Pulse Ox O2 Delivery O2 Flow Rate FiO2 12/09/16 18:12 99.9 92 20 95 Nasal Cannula 2 12/09/16 15:33 139/99 Orders Electrocardiogram (12/09/16 ) Complete Blood Count With Diff (12/09/16 15:25) Comprehensive Metabolic Panel (12/09/16 15:25) B-Type Natriuretic Peptide (12/09/16 15:25) Act Partial Throm Time (Ptt) (12/09/16 15:25) Prothrombin Time / Inr (Pt) (12/09/16 15:25) Magnesium (Mg) (12/09/16 15:25) Ckmb (Isoenzyme) Profile (12/09/16 15:25) Troponin I (12/09/16 15:25) Iv Access Insert/Monitor (12/09/16 15:25) Ecg Monitoring (12/09/16 15:25) Oximetry (12/09/16 15:25) Oxygen Administration (12/09/16 15:25) Chest, Pa & Lat (12/09/16 15:25) Sodium Chloride 0.9% Flush (Ns Flush) (12/09/16 15:30) Ondansetron Inj (Zofran Inj) (12/09/16 16:15) Hydromorphone Pf Inj (Dilaudid Pf Inj) (12/09/16 16:15) Pneumococcal Urinary Antigen (12/09/16 16:25) Legionella Urinary Antigen (12/09/16 16:25) Promethazine Inj (Phenergan Inj) (12/09/16 17:30) Sodium Chlor 0.9% 1000 Ml Inj (Ns 1000 M (12/09/16 17:30) Ibuprofen (Motrin) (12/09/16 17:30) Lactic Acid Sepsis Protocol (12/09/16 17:43) CKMB (12/09/16 16:30) CKMB% (12/09/16 16:30) Admit Order (Ed Use Only) (12/09/16 18:33) Labs Laboratory Tests Test 12/09/16 12/09/16 12/09/16 16:30 17:16 18:05 White Blood Count 5.7 TH/MM3 Red Blood Count 4.66 MIL/MM3 Hemoglobin 13.4 GM/DL Hematocrit 39.4 % Mean Corpuscular Volume 84.5 FL Mean Corpuscular Hemoglobin 28.8 PG Mean Corpuscular Hemoglobin 34.1 % Concent Red Cell Distribution Width 16.1 % Platelet Count 178 TH/MM3 Mean Platelet Volume 9.8 FL Neutrophils (%) (Auto) 75.4 % Lymphocytes (%) (Auto) 15.3 % Monocytes (%) (Auto) 8.3 % Eosinophils (%) (Auto) 0.0 % Basophils (%) (Auto) 1.0 % Neutrophils # (Auto) 4.3 TH/MM3 Lymphocytes # (Auto) 0.9 TH/MM3 Monocytes # (Auto) 0.5 TH/MM3 Eosinophils # (Auto) 0.0 TH/MM3 Basophils # (Auto) 0.1 TH/MM3 CBC Comment DIFF FINAL Differential Comment Prothrombin Time 12.0 SEC Prothromb Time International 1.1 RATIO Ratio Activated Partial 26.8 SEC Thromboplast Time Sodium Level 138 MEQ/L Potassium Level 4.1 MEQ/L Chloride Level 100 MEQ/L Carbon Dioxide Level 25.8 MEQ/L Anion Gap 12 MEQ/L Blood Urea Nitrogen 29 MG/DL Creatinine 2.75 MG/DL Estimat Glomerular Filtration 21 ML/MIN Rate Random Glucose 90 MG/DL Calcium Level 8.1 MG/DL Magnesium Level 1.5 MG/DL Total Bilirubin 0.5 MG/DL Aspartate Amino Transf 23 U/L (AST/SGOT) Alanine Aminotransferase 13 U/L (ALT/SGPT) Alkaline Phosphatase 106 U/L Total Creatine Kinase 224 U/L Creatine Kinase MB 0.8 NG/ML Creatine Kinase MB % 0.4 % Troponin I 0.07 NG/ML B-Type Natriuretic Peptide GREATER THAN 5000 PG/ML Total Protein 5.8 GM/DL Albumin 2.2 GM/DL Urine Color YELLOW Urine Turbidity CLEAR Urine pH 8.5 Urine Specific [place] 1.016 Urine Protein GREATER THAN 600 mg/dL Urine Glucose (UA) 70 mg/dL Urine Ketones TRACE mg/dL Urine Occult Blood TRACE Urine Nitrite NEG Urine Bilirubin NEG Urine Urobilinogen LESS THAN 2.0 MG/DL Urine Leukocyte Esterase NEG Urine RBC 2 /hpf Urine WBC 1 /hpf Urine Squamous Epithelial <1 /hpf Cells Microscopic Urinalysis Comment CULT NOT INDICATED Lactic Acid Level 1.3 mmol/L MDM Medical Record Reviewed: Yes Supervised Visit with KUNAL: Yes Differential Diagnosis CHF versus pneumonia versus bronchitis Narrative Course 76-year-old female who presents with complaints of pleuritic chest pain, shortness of breath. The patient has a AICD in place. She has cardiomyopathy with a low EF. She is currently being worked up for the transplant list. Patient has a of greater than 102 here with no clear source. Her urinalysis is negative. Her BUN and creatinine are elevated however creatinine is 2.7 which is consistent with previous numbers. BNP is 5000. She'll be admitted to the resident teaching service. I, Dr. Johnston, have reviewed the advance practice practitioner's documentation and am in agreement, met with the patient face to face, made the diagnosis, and the medical decision making was done by me. *My assessment and Findings: Fever with cardiomyopathy. Chest pain with history of cardiomyopathy. Diagnosis Primary Impression: Chest pain Additional Impressions: Fever Qualified Code: R50.9 - Fever, unspecified fever cause Cardiomyopathy Elbert Johnston MD Dec 09, 2016 16:01
[2016-12-09] MEDS ORDERED: HYDROmorphone HCL PF 1 MG/ML VIAL IVS ONE (16:15)
[2016-12-09] MEDS ORDERED: ONDANSETRON HCL 4 MG/2 ML VIAL IVP ONE (16:15)
--- NOTE | 2016-12-09 16:25 | PD ---
HPI Chief Complaint: Respiratory Symptoms Time Seen by Provider: 15:25 Travel History International Travel<30 days: No Contact w/Intl Traveler<30days: No Traveled to known affect area: No History of Present Illness HPI Patient is a 26-year-old female sent to emergency room for evaluation of shortness of breath and a persistent cough. Patient states she was evaluated in the emergency department and admitted last week. She's had these symptoms has been ongoing since that time. She states that she's developed chest pressure this morning. EMS stated that she had a 100.4 fever on their arrival. She states that she's had swelling in her lower extremities, abdominal bloating. Patient has cardiomyopathy, AICD placed. She is currently on the transplant list. PFSH Past Medical History Arthritis: No Asthma: No Autoimmune Disease: No Blood Disorders: No Anxiety: No Depression: No Heart Rhythm Problems: Yes Cancer: No Cardiomyopathy: Yes Cardiovascular Problems: Yes High Cholesterol: Yes Chemotherapy: No Chest Pain: Yes Congestive Heart Failure: Yes COPD: No Diabetes: Yes (ON SLIDING SCALE) Diminished Hearing: No Endocrine: Yes Gastrointestinal Disorders: Yes (Pancreatitis) GERD: No Genitourinary: Yes (Chronic Kidney disease) Headaches: Yes Hiatal Hernia: No Hypertension: Yes Immune Disorder: No Implanted Vascular Access Dvce: Yes Kidney Stones: No Musculoskeletal: Yes (Back) Neurologic: Yes (Neuropathy) Psychiatric: No Reproductive: Yes Respiratory: Yes Immunizations Current: Yes Migraines: Yes Radiation Therapy: No Renal Failure: Yes (stage 3 kidney disease) Seizures: No Sickle Cell Disease: No Sleep Apnea: No Thyroid Disease: No Ulcer: No : 1 Para: 1 Miscarriage: 0 : 0 Tubal Ligation: Yes Past Surgical History Abdominal Surgery: Yes (CHOLECYSTECTOMY) AICD: Yes Arteriovenous Shunt: No Body Medical Devices: PT WORE EXTERNAL LIFE VEST 05/15/13 Cardiac Surgery: Yes (AICD/PACEMAKER PLACED & REPLACED (LEFT CHEST)) Section: Yes Cholecystectomy: Yes Ear Surgery: No Endocrine Surgery: No Eye Surgery: No Genitourinary Surgery: No Gynecologic Surgery: Yes (, TUBAL) Insulin Pump: No Joint Replacement: No Oral Surgery: No Pacemaker: Yes Thoracic Surgery: No Tonsillectomy: Yes (7 years old.) Other Surgery: Yes (, Tubalitigation, Gallbladder) Social History Alcohol Use: No Tobacco Use: No Substance Use: Yes (chris) Allergies-Medications (Allergen,Severity, Reaction): Coded Allergies: Toradol (Verified Adverse Reaction, Intermediate, SHAKING, 12/01/16) Reported Meds & Prescriptions Reported Meds & Active Scripts Active Dilaudid (Hydromorphone HCl) 4 Mg Tab 4 Mg PO Q6HR PRN Xanax (Alprazolam) 0.5 Mg Tab 0.5 Mg PO Q12HR PRN Entresto (Sacubitril-Valsartan) 97-103 Mg Tab 1 Tab PO DAILY Bumex (Bumetanide) 1 Mg Tab 2 Mg PO BID K-Tab (Potassium Chloride) 10 Meq Tab 10 Meq PO DAILY Novolog Inj (Insulin Aspart) 1,000 Unit/10 Ml Vial 1-9 Units SQ ACHS Max dose at bedtime:( )units; sugars less than 70,(0)units; sugars 150-199,(1) unit; sugars 200-249,(3) units; sugars 250-299,(5) units; sugars 300-349,(7) units; sugars greater than 349,(9) units Zofran Odt (Ondansetron Odt) 4 Mg Tab 4 Mg SL Q6HR PRN Reported Carvedilol 12.5 Mg Tab 12.5 Mg PO BID Review of Systems Except as stated in HPI: all other systems reviewed are Neg General / Constitutional: Positive: Fever, Chills HENT: No: Headaches, Congestion Cardiovascular: Positive: Chest Pain or Discomfort Respiratory: Positive: Cough, Shortness of Breath, Orthopnea, Pleuritic Pain Gastrointestinal: No: Nausea, Vomiting, Diarrhea, Abdominal Pain Neurologic: Positive: Weakness Physical Exam Narrative GENERAL: Well-developed, well-nourished, alert female. Resting comfortably in no acute distress. SKIN: Warm and dry. HEAD: Atraumatic. Normocephalic. EYES: Pupils equal and round. No scleral icterus. No injection or drainage. ENT: No nasal bleeding or discharge. Mucous membranes pink and moist. NECK: Trachea midline. No JVD. CARDIOVASCULAR: Regular rate and rhythm. No murmur appreciated. RESPIRATORY: No accessory muscle use. Diminished in bases, no wheezes, no rhonchi, no rales noted. No increased work of breathing noted. GASTROINTESTINAL: Abdomen soft, non-tender, nondistended. Hepatic and splenic margins not palpable. Positive bowel sounds, no rebound, no guarding. MUSCULOSKELETAL: No obvious deformities. No clubbing. No cyanosis. No edema. NEUROLOGICAL: Awake and alert. No obvious cranial nerve deficits. Motor grossly within normal limits. Normal speech. PSYCHIATRIC: Appropriate mood and affect; insight and judgment normal. Data Data Last Documented VS Vital Signs Date Time Temp Pulse Resp B/P Pulse Ox O2 Delivery O2 Flow Rate FiO2 12/09/16 18:12 99.9 92 20 95 Nasal Cannula 2 12/09/16 15:33 139/99 Orders Electrocardiogram (12/09/16 ) Complete Blood Count With Diff (12/09/16 15:25) Comprehensive Metabolic Panel (12/09/16 15:25) B-Type Natriuretic Peptide (12/09/16 15:25) Act Partial Throm Time (Ptt) (12/09/16 15:25) Prothrombin Time / Inr (Pt) (12/09/16 15:25) Magnesium (Mg) (12/09/16 15:25) Ckmb (Isoenzyme) Profile (12/09/16 15:25) Troponin I (12/09/16 15:25) Iv Access Insert/Monitor (12/09/16 15:25) Ecg Monitoring (12/09/16 15:25) Oximetry (12/09/16 15:25) Oxygen Administration (12/09/16 15:25) Chest, Pa & Lat (12/09/16 15:25) Sodium Chloride 0.9% Flush (Ns Flush) (12/09/16 15:30) Ondansetron Inj (Zofran Inj) (12/09/16 16:15) Hydromorphone Pf Inj (Dilaudid Pf Inj) (12/09/16 16:15) Pneumococcal Urinary Antigen (12/09/16 16:25) Legionella Urinary Antigen (12/09/16 16:25) Promethazine Inj (Phenergan Inj) (12/09/16 17:30) Sodium Chlor 0.9% 1000 Ml Inj (Ns 1000 M (12/09/16 17:30) Ibuprofen (Motrin) (12/09/16 17:30) Lactic Acid Sepsis Protocol (12/09/16 17:43) CKMB (12/09/16 16:30) CKMB% (12/09/16 16:30) Admit Order (Ed Use Only) (12/09/16 18:33) Labs Laboratory Tests Test 12/09/16 12/09/16 12/09/16 16:30 17:16 18:05 White Blood Count 5.7 TH/MM3 Red Blood Count 4.66 MIL/MM3 Hemoglobin 13.4 GM/DL Hematocrit 39.4 % Mean Corpuscular Volume 84.5 FL Mean Corpuscular Hemoglobin 28.8 PG Mean Corpuscular Hemoglobin 34.1 % Concent Red Cell Distribution Width 16.1 % Platelet Count 178 TH/MM3 Mean Platelet Volume 9.8 FL Neutrophils (%) (Auto) 75.4 % Lymphocytes (%) (Auto) 15.3 % Monocytes (%) (Auto) 8.3 % Eosinophils (%) (Auto) 0.0 % Basophils (%) (Auto) 1.0 % Neutrophils # (Auto) 4.3 TH/MM3 Lymphocytes # (Auto) 0.9 TH/MM3 Monocytes # (Auto) 0.5 TH/MM3 Eosinophils # (Auto) 0.0 TH/MM3 Basophils # (Auto) 0.1 TH/MM3 CBC Comment DIFF FINAL Differential Comment Prothrombin Time 12.0 SEC Prothromb Time International 1.1 RATIO Ratio Activated Partial 26.8 SEC Thromboplast Time Sodium Level 138 MEQ/L Potassium Level 4.1 MEQ/L Chloride Level 100 MEQ/L Carbon Dioxide Level 25.8 MEQ/L Anion Gap 12 MEQ/L Blood Urea Nitrogen 29 MG/DL Creatinine 2.75 MG/DL Estimat Glomerular Filtration 21 ML/MIN Rate Random Glucose 90 MG/DL Calcium Level 8.1 MG/DL Magnesium Level 1.5 MG/DL Total Bilirubin 0.5 MG/DL Aspartate Amino Transf 23 U/L (AST/SGOT) Alanine Aminotransferase 13 U/L (ALT/SGPT) Alkaline Phosphatase 106 U/L Total Creatine Kinase 224 U/L Creatine Kinase MB 0.8 NG/ML Creatine Kinase MB % 0.4 % Troponin I 0.07 NG/ML B-Type Natriuretic Peptide GREATER THAN 5000 PG/ML Total Protein 5.8 GM/DL Albumin 2.2 GM/DL Urine Color YELLOW Urine Turbidity CLEAR Urine pH 8.5 Urine Specific [place] 1.016 Urine Protein GREATER THAN 600 mg/dL Urine Glucose (UA) 70 mg/dL Urine Ketones TRACE mg/dL Urine Occult Blood TRACE Urine Nitrite NEG Urine Bilirubin NEG Urine Urobilinogen LESS THAN 2.0 MG/DL Urine Leukocyte Esterase NEG Urine RBC 2 /hpf Urine WBC 1 /hpf Urine Squamous Epithelial <1 /hpf Cells Microscopic Urinalysis Comment CULT NOT INDICATED Lactic Acid Level 1.3 mmol/L MDM Medical Decision Making Medical Screen Exam Complete: Yes Emergency Medical Condition: Yes Interpretation(s) Laboratory Tests Test 12/09/16 12/09/16 16:30 18:05 White Blood Count 5.7 TH/MM3 Red Blood Count 4.66 MIL/MM3 Hemoglobin 13.4 GM/DL Hematocrit 39.4 % Mean Corpuscular Volume 84.5 FL Mean Corpuscular Hemoglobin 28.8 PG Mean Corpuscular Hemoglobin 34.1 % Concent Red Cell Distribution Width 16.1 % Platelet Count 178 TH/MM3 Mean Platelet Volume 9.8 FL Neutrophils (%) (Auto) 75.4 % Lymphocytes (%) (Auto) 15.3 % Monocytes (%) (Auto) 8.3 % Eosinophils (%) (Auto) 0.0 % Basophils (%) (Auto) 1.0 % Neutrophils # (Auto) 4.3 TH/MM3 Lymphocytes # (Auto) 0.9 TH/MM3 Monocytes # (Auto) 0.5 TH/MM3 Eosinophils # (Auto) 0.0 TH/MM3 Basophils # (Auto) 0.1 TH/MM3 CBC Comment DIFF FINAL Differential Comment Prothrombin Time 12.0 SEC Prothromb Time International 1.1 RATIO Ratio Activated Partial 26.8 SEC Thromboplast Time Sodium Level 138 MEQ/L Potassium Level 4.1 MEQ/L Chloride Level 100 MEQ/L Carbon Dioxide Level 25.8 MEQ/L Anion Gap 12 MEQ/L Blood Urea Nitrogen 29 MG/DL Creatinine 2.75 MG/DL Estimat Glomerular Filtration 21 ML/MIN Rate Random Glucose 90 MG/DL Calcium Level 8.1 MG/DL Magnesium Level 1.5 MG/DL Total Bilirubin 0.5 MG/DL Aspartate Amino Transf 23 U/L (AST/SGOT) Alanine Aminotransferase 13 U/L (ALT/SGPT) Alkaline Phosphatase 106 U/L Total Creatine Kinase 224 U/L Creatine Kinase MB 0.8 NG/ML Creatine Kinase MB % 0.4 % Troponin I 0.07 NG/ML B-Type Natriuretic Peptide GREATER THAN 5000 PG/ML Total Protein 5.8 GM/DL Albumin 2.2 GM/DL Lactic Acid Level 1.3 mmol/L Last Impressions Chest X-Ray 12/09/16 1525 Signed Impressions: Service Date/Time: Friday, December 09, 2016 15:31 - CONCLUSION: 1. Peribronchial thickening without focal infiltrate. Cardiomegaly. Elías Morley MD Vital Signs Date Time Temp Pulse Resp B/P Pulse Ox O2 Delivery O2 Flow Rate FiO2 12/09/16 15:33 100.7 114 22 139/99 93 12/09/16 15:33 100.7 114 22 139/99 93 12/09/16 15:20 100.7 114 22 139/99 93 Differential Diagnosis CHF versus bronchitis versus pneumonia versus viral syndrome versus other Narrative Course Patient is a 26-year-old female presenting to emergency for evaluation of shortness of breath, cough, chest pressure. Patient has significant past medical history for congestive heart failure, cardiomyopathy. She was just admitted to emergency department twice over the last several weeks. On 11/26/16 patient was admitted with sepsis, patient was admitted with acute kidney injury, CHF. Patient is febrile with a temp of 102.6 emergency department, no clear source of infection. Chest x-ray shows peribronchial thickening. CBC is no elevated white count, chemistry with elevated BUN and creatinine which is improved from prior. BNP greater than 5000. Troponin 0.07 Patient was given ibuprofen for her fever, temp was reassessed and is currently 99.9. Patient was tachycardic with a rate in the 110'S, with reduction in fever her heart rate has normalized at 92. Patient will be kept, she currently meet sepsis criteria. Residents accepted admission on behalf of Dr. Denise. Urinalysis is negative for urinary tract infection. Sepsis Criteria SIRS Criteria (2 or more): Temp > 100.9 or < 96.8, Heart rate over 90 Severe Sepsis (+one): Acute Oliguria/Renal Failure Criteria Outcome: Meets severe sepsis criteria Diagnosis Primary Impression: Sepsis Qualified Code: A41.9 - Sepsis, due to unspecified organism Additional Impressions: Acute kidney injury Systolic CHF, acute on chronic Fever Qualified Code: R50.9 - Fever, unspecified fever cause Admitting Information Admitting Physician Requests: Admit Condition: Stable Rand Stephenson RELAY MECHANIC Dec 09, 2016 16:25
[2016-12-09] MEDS ORDERED: IBUPROFEN 800 MG TAB PO ONE (17:30)
[2016-12-09] MEDS ORDERED: SODIUM CHLOR 0.9% 1000 ML INJ 1,000 ML IV ONE (17:30)
[2016-12-09] MEDS ORDERED: PROMETHAZINE INJ 25 MG/ML VIAL IM ONE (17:30)
[2016-12-09 17:40] LABS: AUTOMATED NEUTROPHIL # 4.3 TH/MM3 (1.8-7.7); BASOPHIL # 0.1 TH/MM3 (0-0.2); HEMATOCRIT 39.4 % (35.0-46.0); HEMO FLAGS DIFF FINAL; LYMPH % 15.3 % (9.0-44.0); LYMPHOCYTE # 0.9 TH/MM3 (1.0-4.8); MEAN CELL VOLUME 84.5 FL (80.0-100.0); MEAN CORPUSCULAR HEMOGLOBIN 28.8 PG (27.0-34.0); MEAN CORPUSCULAR HGB CONC 34.1 % (32.0-36.0); MONO % 8.3 % (0.0-8.0); NEUT % 75.4 % (16.0-70.0); PLATELET COUNT 178 TH/MM3 (150-450); RED BLOOD COUNT 4.66 MIL/MM3 (4.00-5.30); RED CELL DISTRIBUTION WIDTH 16.1 % (11.6-17.2); WHITE BLOOD COUNT 5.7 TH/MM3 (4.0-11.0)
[2016-12-09 17:51] LABS: APTT (PATIENT) 26.8 SEC (24.3-30.1); INTERNATIONAL NORMALIZED RATIO 1.1 RATIO
[2016-12-09 18:12] VITALS: PULSE 92; RESP 20; TEMP 99.9; O2SAT 95
[2016-12-09 18:27] LABS: ALT (GPT) 13 U/L (10-53); ANION GAP 12 MEQ/L (5-15); AST (GOT) 23 U/L (15-37); BICARBONATE 25.8 MEQ/L (21.0-32.0); BLOOD UREA NITROGEN 29 MG/DL (7-18); CHLORIDE 100 MEQ/L (98-107); GLOMERULAR FILTRATION RATE 21 ML/MIN (>89); MAGNESIUM 1.5 MG/DL (1.5-2.5); POTASSIUM 4.1 MEQ/L (3.5-5.1); SODIUM (NA) 138 MEQ/L (136-145)
[2016-12-09 18:30] LABS: ALKALINE PHOSPHATASE 106 U/L (45-117); CREATINE KINASE 224 U/L (26-192); TOTAL BILIRUBIN ADULT 0.5 MG/DL (0.2-1.0)
[2016-12-09 18:45] LABS: CKMB 0.8 NG/ML (0.5-3.6)
--- NOTE | 2016-12-09 18:48 | HHI.HP ---
[facility] Service Family Medicine Primary Care Physician Lucio Andrade, Admission Diagnosis SEPSIS Diagnoses: International Travel<30 Days: No Contact w/Intl Traveler<30days: No Known Affected Area: No History of Present Illness Patient is a 26-year-old female with a PMH significant for cardiomyopathy with an EF of 15% and CKD. Patient was recently discharged from hospital on 12/06 for anasarca and cellulitis. Cellulitis was treated with clindamycin and anasarca was treated with diuretics with an improving creatinine. Additionally patient was admitted for another hospitalization on 11/26 and discharged on 11/28 for UTI, pneumonia, CHF exacerbation. For that hospitalization, treated with vancomycin and Zosyn in the ED but continued treatment on Rocephin and Levaquin. Patient is back again today due to a 2 day worsening of SOB, muscle aches, diarrhea, nausea/vomiting, cough. Patient has continued on clindamycin but developed watery diarrhea that is occurring every 3 -4 hours. Endorses dysuria that has been present ever since her last hospitalization. Since patient developed worsening SOB, she contacted her mask former who recommended increasing carvedilol to 12.5 mg BID and discontinuing metolazone. She also noticed a fever taken orally with a high of 100.7 which she took Tylenol. She otherwise denies any sick contacts. Endorses chest pain that is located at her left upper chest close to her shoulder that is described as sharp and radiates down arm and neck. This pain does improve with sitting up. Also endorses rib pain due to frequency of cough and nausea/vomiting. Review of Systems Constitutional: COMPLAINS OF: Fever, Chills, Change in appetite Eyes: DENIES: Blurred vision, Double Vision Ears, nose, mouth, throat: COMPLAINS OF: Throat pain, DENIES: Running Nose Respiratory: COMPLAINS OF: Cough, Sputum production, Shortness of breath Cardiovascular: COMPLAINS OF: Chest pain, Lower Extremity Edema, Orthopnea, DENIES: Syncope Gastrointestinal: COMPLAINS OF: Abdominal pain, Diarrhea, Nausea, Vomiting, DENIES: Bloody stools Genitourinary: COMPLAINS OF: Dysuria, DENIES: Hematuria Musculoskeletal: COMPLAINS OF: Muscle aches Integumentary: DENIES: Rash Neurologic: COMPLAINS OF: Headache Past Family Social History Past Medical History cardiomyopathy with a very low EF, on transplant list Pancreatitis CKD DM Past Surgical History AICD&defibillator placement - 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 Tubal ligation Cholecystectomy Tonsillectomy Reported Medications Reported Meds & Active Scripts Active Dilaudid (Hydromorphone HCl) 4 Mg Tab 4 Mg PO Q6HR PRN Xanax (Alprazolam) 0.5 Mg Tab 0.5 Mg PO Q12HR PRN Entresto (Sacubitril-Valsartan) 97-103 Mg Tab 1 Tab PO DAILY Clindamycin (Clindamycin HCl) 300 Mg Cap 300 Mg PO TID Bumex (Bumetanide) 1 Mg Tab 2 Mg PO BID K-Tab (Potassium Chloride) 10 Meq Tab 10 Meq PO DAILY Novolog Inj (Insulin Aspart) 1,000 Unit/10 Ml Vial 1-9 Units SQ ACHS Max dose at bedtime:( )units; sugars less than 70,(0)units; sugars 150-199,(1) unit; sugars 200-249,(3) units; sugars 250-299,(5) units; sugars 300-349,(7) units; sugars greater than 349,(9) units Zofran Odt (Ondansetron Odt) 4 Mg Tab 4 Mg SL Q6HR PRN Metolazone 5 Mg Tab 5 Mg PO DAILY 30 Days Carvedilol 6.25 Mg Tab 6.25 Mg PO BID 30 Days Allergies: Coded Allergies: Toradol (Verified Adverse Reaction, Intermediate, SHAKING, 12/01/16) Family History Mother - rheumatoid arthritis, hypertension. Father: 2/2 pancreatitis at a young age Social History Lives: Mother and son Tobacco: quit 2012, 1/2ppd prior Alcohol: none Illicit: periodic marijuana use Physical Exam Vital Signs Vital Signs Date Time Temp Pulse Resp B/P Pulse Ox O2 Delivery O2 Flow Rate FiO2 12/09/16 18:12 99.9 92 20 95 Nasal Cannula 2 12/09/16 16:48 93 Room Air 12/09/16 15:33 100.7 114 22 139/99 93 12/09/16 15:33 100.7 114 22 139/99 93 12/09/16 15:20 100.7 114 22 139/99 93 Physical Exam GENERAL: This is a well-nourished female in no apparent distress. SKIN: No ecchymoses or lesions. Cool and dry. Faint erythema on lower abdomen does not extend to groin. No evidence of cellulitis on lower extremities. EYES: Pupils equal round and reactive. Extraocular motions intact. No scleral icterus. No injection or drainage. ENT: Nose without bleeding, purulent drainage. Throat without erythema, tonsillar hypertrophy or exudate. Uvula midline. Airway patent. NECK: No JVD or lymphadenopathy. CARDIOVASCULAR: Regular rate and rhythm without murmurs, gallops, or rubs. RESPIRATORY: Clear to auscultation. Breath sounds equal bilaterally. No wheezes , rales, or rhonchi. GASTROINTESTINAL: Abdomen soft, non-tender, nondistended. No hepato-splenomegaly , or palpable masses. No guarding. Trace edema present on abdomen. MUSCULOSKELETAL: Extremities without clubbing, cyanosis. Diffuse muscle tenderness to palpation. NEUROLOGICAL: Awake and alert. Motor and sensory grossly within normal limits. Normal speech. Laboratory Laboratory Tests Test 12/09/16 12/09/16 16:30 18:05 White Blood Count 5.7 Red Blood Count 4.66 Hemoglobin 13.4 Hematocrit 39.4 Mean Corpuscular Volume 84.5 Mean Corpuscular Hemoglobin 28.8 Mean Corpuscular Hemoglobin 34.1 Concent Red Cell Distribution Width 16.1 Platelet Count 178 Mean Platelet Volume 9.8 Neutrophils (%) (Auto) 75.4 Lymphocytes (%) (Auto) 15.3 Monocytes (%) (Auto) 8.3 Eosinophils (%) (Auto) 0.0 Basophils (%) (Auto) 1.0 Neutrophils # (Auto) 4.3 Lymphocytes # (Auto) 0.9 Monocytes # (Auto) 0.5 Eosinophils # (Auto) 0.0 Basophils # (Auto) 0.1 CBC Comment DIFF FINAL Differential Comment Prothrombin Time 12.0 Prothromb Time International 1.1 Ratio Activated Partial 26.8 Thromboplast Time Sodium Level 138 Potassium Level 4.1 Chloride Level 100 Carbon Dioxide Level 25.8 Anion Gap 12 Blood Urea Nitrogen 29 Creatinine 2.75 Estimat Glomerular Filtration 21 Rate Random Glucose 90 Calcium Level 8.1 Magnesium Level 1.5 Total Bilirubin 0.5 Aspartate Amino Transf 23 (AST/SGOT) Alanine Aminotransferase 13 (ALT/SGPT) Alkaline Phosphatase 106 Total Creatine Kinase 224 Troponin I 0.07 B-Type Natriuretic Peptide GREATER THAN 5000 Total Protein 5.8 Albumin 2.2 Lactic Acid Level 1.3 Date/Time Procedure Status Source Growth 12/09/16 17:16 Legionella Antigen Received Urine Clean Catch Pending 12/09/16 17:16 Streptococcus pneumoniae Antigen (M Received Urine Clean Catch Pending Result Diagram: 12/09/16 1630 12/09/16 1630 Imaging Last Impressions Chest X-Ray 12/09/16 1525 Signed Impressions: Service Date/Time: Friday, December 09, 2016 15:31 - CONCLUSION: 1. Peribronchial thickening without focal infiltrate. Cardiomegaly. Elías Morley MD Assessment and Plan Assessment and Plan 26-year-old female with PMH of cardiomyopathy, CKD. Admitted for Sirs Code Status Full Problem List: (1) SIRS (systemic inflammatory response syndrome) Status: Acute Plan: Patient met SIRS criteria based on fever and tachycardia on admission. Fever and pulse has since improved with NSAIDs. History complicated by multiple admissions related to possible UTI, pneumonia, cellulitis, CHF exacerbation. Patient now with diarrhea after utilization of clindamycin however she does continue have faint erythema on the lower abdomen at the site of recent cellulitis infection. However patient does not have leukocytosis which was present on her prior admission. Etiology of symptoms. Unclear at this time as there are multiple sources and symptoms. Differential includes pericarditis vs C. difficile vs pneumonia vs cellulitis vs UTI. Since patient met SIRS criteria with a recent history of infections, will treat more aggressively. -UA and chest x-ray negative for infectious etiology -No leukocytosis or lactic acidosis -C. difficile and stool studies -Urine culture and blood culture pending -Influenza, legionella, and pneumococcal ordered Medications: * Rocephin 12/09 * Metronidazole 12/09 * will consider adding MRSA coverage with linezolid if patient worsens clinically * Zofran and Reglan for nausea/vomiting (2) Chest pain Status: Acute Plan: Chest pain may be due to decreased perfusion versus pericarditis as patient does endorse improvement in symptoms when sitting up. Most recent echo on 11/2016 showed an EF of 15% -BNP elevated to greater than 5000 -ACS evaluation -EKG: Sinus rhythm with increased rate. Left axis deviation. Intervals okay. Left atrial enlargement. Isolated ST elevation in lead V2. T wave inversions in lateral leads -Repeat limited echo to evaluate for pericardial effusion (3) Cardiomyopathy Status: Chronic Plan: Continue home meds. See more detailed plan above * Bumex 2 mg BID * KCl 10meq Daily * Sacubitril/Valsartan * Carvedilol 12.5 mg BID (4) Chronic kidney disease Status: Chronic Plan: Creatinine improved slightly since last creatinine on 12/06. Electrolytes otherwise unremarkable -continue to monitor I&Os (5) Nutrition, metabolism, and development symptoms Status: Acute Plan: Diet: Clear liquid Electrolytes: Unremarkable, continue to monitor Fluids: NS bolus 1. Limit fluid resuscitation DVT prophylaxis: Heparin GI prophylaxis: Not indicated Chronic medical conditions: * DM: Low-dose sliding scale Physician Certification 2 Midnight Certification Type: Admission for Inpatient Services Order for Inpatient Services The services are ordered in accordance with Medicare regulations or non- Medicare payer requirements, as applicable. In the case of services not specified as inpatient-only, they are appropriately provided as inpatient services in accordance with the 2-midnight benchmark. Estimated LOS (days): 2 days is the estimated time the patient will need to remain in the hospital, assuming treatment plan goals are met and no additional complications. Post-Hospital Plan: Home Tatum Buck MD R2 Dec 09, 2016 18:48
[2016-12-09 19:08] LABS: BLOOD, URINE TRACE (NEG); COMMENT (UR) CULT NOT INDICATED; CULTURE IF INDICATED CULT NOT INDICATED; GLUCOSE,URINE 70 mg/dL (NEG); KETONE, URINE TRACE mg/dL (NEG); NITRITE,URINE NEG (NEG); PH, URINE 8.5 (5.0-8.5); SQUAMOUS EPITHELIAL CELL URINE <1 /hpf (0-5); URINE COLOR YELLOW (YELLW/STRAW)
[2016-12-09] MEDS ORDERED: CARV12.52 PO (19:15)
[2016-12-09] MEDS ORDERED: GLUCAGON 1 MG/ML VIAL OTHER PRN (19:30)
[2016-12-09] MEDS ORDERED: ACETAMINOPHEN 325 MG TAB PO PRN (19:30)
[2016-12-09] MEDS ORDERED: HYDROmorphone HCL PF 1 MG/ML VIAL IV PRN (19:30)
[2016-12-09] MEDS ORDERED: ACETAMINOPHEN/HYDROcodone 325 MG/5 MG TAB PO PRN (19:30)
[2016-12-09] MEDS ORDERED: METOCLOPRAMIDE HCL 10 MG/2 ML VIAL IV PUSH PRN (19:30)
[2016-12-09] MEDS ORDERED: NALOXONE HCL 0.4 MG/ML AMP IV PRN (19:30)
[2016-12-09] MEDS ORDERED: ONDANSETRON HCL 4 MG/2 ML VIAL IVP PRN (19:30)
[2016-12-09] MEDS ORDERED: DEXTROSE 50% IN WATER 50 ML VIAL(D50) IV PUSH PRN (19:30)
[2016-12-09] MEDS: SODIUM CHLORIDE 0.9% FLUSH 5 ML FLUSH FLUSH SCH (20:14)
[2016-12-09] MEDS: HEPARIN SODIUM - SQ 10,000 UNITS/ML VIAL SQ SCH (20:14)
[2016-12-09] MEDS: ALPRAZolam 0.5 MG TAB PO PRN (20:15)
[2016-12-09] MEDS: ACETAMINOPHEN/HYDROcodone 325 MG/10 MG TAB PO PRN (20:15)
[2016-12-09 20:19] VITALS: BP 127/78; PULSE 102; RESP 18; TEMP 100; O2SAT 98
[2016-12-09 20:47] LABS: CKMB 0.9 NG/ML (0.5-3.6)
[2016-12-09] MEDS: BUMETANIDE 1 MG TAB PO SCH (20:58)
[2016-12-09] MEDS: cefTRIAXone INJ 1,000 MG in SODIUM CHLORIDE 0.9% INJ 100 ML IV SCH (20:58)
[2016-12-09] MEDS: INSULIN ASPART SUPPLEMENTAL SCALE SQ SCH (20:58)
[2016-12-09 21:35] VITALS: O2SAT 98
[2016-12-09] MEDS ORDERED: cloNIDine HCL 0.1 MG TAB PO PRN (22:30)
[2016-12-09 23:00] VITALS: PULSE 85
[2016-12-09] MEDS: metroNIDAZOLE 500 MG INJ 100 ML IV SCH (23:03)
[2016-12-09] MEDS: SODIUM CHLORIDE 0.9% FLUSH 5 ML FLUSH FLUSH PRN ×2 (23:03→23:20)
[2016-12-09] MEDS: HYDROmorphone HCL PF 1 MG/ML VIAL IV PRN (23:20)
[2016-12-09] MEDS: CARVEDILOL 12.5 MG TAB PO SCH (23:25)
[2016-12-10 01:24] LABS: CKMB 0.8 NG/ML (0.5-3.6)
[2016-12-10] MEDS: ACETAMINOPHEN/HYDROcodone 325 MG/10 MG TAB PO PRN ×3 (01:27→11:06)
[2016-12-10] MEDS: HYDROmorphone HCL PF 1 MG/ML VIAL IV PRN ×7 (02:42→22:00)
[2016-12-10] MEDS: SODIUM CHLORIDE 0.9% FLUSH 5 ML FLUSH FLUSH PRN ×2 (02:43→05:43)
[2016-12-10] MEDS: HEPARIN SODIUM - SQ 10,000 UNITS/ML VIAL SQ SCH ×3 (02:50→20:00)
[2016-12-10] MEDS: metroNIDAZOLE 500 MG INJ 100 ML IV SCH ×4 (02:50→22:02)
[2016-12-10 04:00] VITALS: BP 109/62; PULSE 87; RESP 18; TEMP 98; O2SAT 92
[2016-12-10] MEDS: INSULIN ASPART SUPPLEMENTAL SCALE SQ SCH ×4 (05:52→21:00)
[2016-12-10 08:00] VITALS: BP 102/62; PULSE 80; RESP 19; TEMP 98.3; O2SAT 95
[2016-12-10 08:00] LABS: AUTOMATED NEUTROPHIL # 1.8 TH/MM3 (1.8-7.7); BASOPHIL % 0.9 % (0.0-2.0); EOSINOPHIL % 0.4 % (0.0-4.0); HEMATOCRIT 35.8 % (35.0-46.0); HEMO FLAGS DIFF FINAL; LYMPH % 19.5 % (9.0-44.0); LYMPHOCYTE # 0.5 TH/MM3 (1.0-4.8); MEAN CELL VOLUME 85.4 FL (80.0-100.0); MEAN CORPUSCULAR HEMOGLOBIN 28.3 PG (27.0-34.0); MEAN CORPUSCULAR HGB CONC 33.1 % (32.0-36.0); MONO % 9.5 % (0.0-8.0); NEUT % 69.7 % (16.0-70.0); PLATELET COUNT 140 TH/MM3 (150-450); RED CELL DISTRIBUTION WIDTH 16.6 % (11.6-17.2); WHITE BLOOD COUNT 2.6 TH/MM3 (4.0-11.0)
[2016-12-10] MEDS: POTASSIUM CHLORIDE 10 MEQ CONTROLLED RELEASE TAB PO SCH (08:17)
[2016-12-10] MEDS: BUMETANIDE 1 MG TAB PO SCH ×2 (08:17→21:59)
[2016-12-10] MEDS: SODIUM CHLORIDE 0.9% FLUSH 5 ML FLUSH FLUSH SCH ×2 (08:17→22:02)
[2016-12-10 08:24] LABS: ALKALINE PHOSPHATASE 86 U/L (45-117); ALT (GPT) 11 U/L (10-53); ANION GAP 11 MEQ/L (5-15); AST (GOT) 20 U/L (15-37); BICARBONATE 29.3 MEQ/L (21.0-32.0); BLOOD UREA NITROGEN 28 MG/DL (7-18); CHLORIDE 99 MEQ/L (98-107); GLOMERULAR FILTRATION RATE 18 ML/MIN (>89); POTASSIUM 3.7 MEQ/L (3.5-5.1); SODIUM (NA) 139 MEQ/L (136-145); TOTAL BILIRUBIN ADULT 0.3 MG/DL (0.2-1.0)
[2016-12-10] MEDS: CARVEDILOL 12.5 MG TAB PO SCH ×2 (08:29→21:59)
[2016-12-10] MEDS: SACUBITRIL/VALSARTAN 97 MG-103 MG TAB PO SCH (10:15)
--- NOTE | 2016-12-10 11:58 | HHI.FPPN ---
Subjective Remarks Patient seen, examined and discussed with the medicine team. This is a 26 year-old female with cardiomyopathy after the delivery of her child 4 years ago with an EF of 15% and chronic kidney disease who presented with 2 days of shortness of breath, nausea, vomiting, diarrhea, cough, generalized muscle aches and left upper chest discomfort. She had contacted her jewelry casting model maker for the chest discomfort and her Coreg was increased. Her metolazone was discontinued. However she continued to have dysuria, and her temperature at home was 100.7. She is on the heart transplant list. She was admitted meeting SIRS criteria. This morning, she continues to have shortness of breath and discomfort in her chest when she coughs. Also coughing causes problem with pain in her head around her eyes. Her loose stools persist this morning. Objective Vitals Vital Signs Date Time Temp Pulse Resp B/P Pulse Ox O2 Delivery O2 Flow Rate FiO2 12/10/16 08:00 98.3 80 19 102/62 95 12/10/16 04:00 98.0 87 18 109/62 92 12/09/16 23:00 85 12/09/16 21:35 98 Room Air 12/09/16 20:19 100.0 102 18 127/78 98 Nasal Cannula 2 12/09/16 18:12 99.9 92 20 95 Nasal Cannula 2 12/09/16 16:48 93 Room Air 12/09/16 15:33 100.7 114 22 139/99 93 12/09/16 15:33 100.7 114 22 139/99 93 12/09/16 15:20 100.7 114 22 139/99 93 Result Diagram: 12/10/16 0701 12/10/16 0701 Other Results Laboratory Tests Test 12/09/16 12/09/16 12/09/16 12/09/16 16:30 17:16 18:05 19:55 White Blood Count 5.7 TH/MM3 Red Blood Count 4.66 MIL/MM3 Hemoglobin 13.4 GM/DL Hematocrit 39.4 % Mean Corpuscular Volume 84.5 FL Mean Corpuscular Hemoglobin 28.8 PG Mean Corpuscular Hemoglobin 34.1 % Concent Red Cell Distribution Width 16.1 % Platelet Count 178 TH/MM3 Mean Platelet Volume 9.8 FL Neutrophils (%) (Auto) 75.4 % Lymphocytes (%) (Auto) 15.3 % Monocytes (%) (Auto) 8.3 % Eosinophils (%) (Auto) 0.0 % Basophils (%) (Auto) 1.0 % Neutrophils # (Auto) 4.3 TH/MM3 Lymphocytes # (Auto) 0.9 TH/MM3 Monocytes # (Auto) 0.5 TH/MM3 Eosinophils # (Auto) 0.0 TH/MM3 Basophils # (Auto) 0.1 TH/MM3 CBC Comment DIFF FINAL Differential Comment Prothrombin Time 12.0 SEC Prothromb Time International 1.1 RATIO Ratio Activated Partial 26.8 SEC Thromboplast Time Sodium Level 138 MEQ/L Potassium Level 4.1 MEQ/L Chloride Level 100 MEQ/L Carbon Dioxide Level 25.8 MEQ/L Anion Gap 12 MEQ/L Blood Urea Nitrogen 29 MG/DL Creatinine 2.75 MG/DL Estimat Glomerular Filtration 21 ML/MIN Rate Random Glucose 90 MG/DL Calcium Level 8.1 MG/DL Magnesium Level 1.5 MG/DL Total Bilirubin 0.5 MG/DL Aspartate Amino Transf 23 U/L (AST/SGOT) Alanine Aminotransferase 13 U/L (ALT/SGPT) Alkaline Phosphatase 106 U/L Total Creatine Kinase 224 U/L 219 U/L Creatine Kinase MB 0.8 NG/ML 0.9 NG/ML Creatine Kinase MB % 0.4 % 0.4 % Troponin I 0.07 NG/ML 0.09 NG/ML B-Type Natriuretic Peptide GREATER THAN 5000 PG/ML Total Protein 5.8 GM/DL Albumin 2.2 GM/DL Urine Color YELLOW Urine Turbidity CLEAR Urine pH 8.5 Urine Specific Perry 1.016 Urine Protein GREATER THAN 600 mg/dL Urine Glucose (UA) 70 mg/dL Urine Ketones TRACE mg/dL Urine Occult Blood TRACE Urine Nitrite NEG Urine Bilirubin NEG Urine Urobilinogen LESS THAN 2.0 MG/DL Urine Leukocyte Esterase NEG Urine RBC 2 /hpf Urine WBC 1 /hpf Urine Squamous Epithelial <1 /hpf Cells Microscopic Urinalysis Comment CULT NOT INDICATED Lactic Acid Level 1.3 mmol/L Test 12/10/16 12/10/16 00:19 07:01 Total Creatine Kinase 193 U/L Creatine Kinase MB 0.8 NG/ML Creatine Kinase MB % 0.4 % Troponin I 0.07 NG/ML White Blood Count 2.6 TH/MM3 Red Blood Count 4.20 MIL/MM3 Hemoglobin 11.9 GM/DL Hematocrit 35.8 % Mean Corpuscular Volume 85.4 FL Mean Corpuscular Hemoglobin 28.3 PG Mean Corpuscular Hemoglobin 33.1 % Concent Red Cell Distribution Width 16.6 % Platelet Count 140 TH/MM3 Mean Platelet Volume 9.9 FL Neutrophils (%) (Auto) 69.7 % Lymphocytes (%) (Auto) 19.5 % Monocytes (%) (Auto) 9.5 % Eosinophils (%) (Auto) 0.4 % Basophils (%) (Auto) 0.9 % Neutrophils # (Auto) 1.8 TH/MM3 Lymphocytes # (Auto) 0.5 TH/MM3 Monocytes # (Auto) 0.2 TH/MM3 Eosinophils # (Auto) 0.0 TH/MM3 Basophils # (Auto) 0.0 TH/MM3 CBC Comment DIFF FINAL Differential Comment Sodium Level 139 MEQ/L Potassium Level 3.7 MEQ/L Chloride Level 99 MEQ/L Carbon Dioxide Level 29.3 MEQ/L Anion Gap 11 MEQ/L Blood Urea Nitrogen 28 MG/DL Creatinine 3.11 MG/DL Estimat Glomerular Filtration 18 ML/MIN Rate Random Glucose 163 MG/DL Calcium Level 7.7 MG/DL Total Bilirubin 0.3 MG/DL Aspartate Amino Transf 20 U/L (AST/SGOT) Alanine Aminotransferase 11 U/L (ALT/SGPT) Alkaline Phosphatase 86 U/L Total Protein 5.1 GM/DL Albumin 1.8 GM/DL Imaging Last Impressions Chest X-Ray 12/09/16 1525 Signed Impressions: Service Date/Time: Friday, December 09, 2016 15:31 - CONCLUSION: 1. Peribronchial thickening without focal infiltrate. Cardiomegaly. Elías Morley MD Objective Remarks O. CONSTITUTIONAL/GEN: normally nourished, in some distress with muscle aches , cough.. EYES: conjunctiva normal, PERRLA, EOMI. NECK: Supple LUNGS: clear A-P, respiratory effort is normal. CARDIOVASCULAR: RR without murmur or gallop. No significant edema. GI/ABD: soft without masses, without organomegaly. NEURO: No focal deficits. SKIN: color normal, no rashes noted. Some erythema of the skin of the lower abdomen HEME/LYMPH: no bruising, petechia or significant adenopathy MUSC: back is normal in appearance. Extremities are normal in appearance but her legs are tender to palpation. PSYCH/MENTAL STATUS: Alert and oriented x 3. A/P Assessment and Plan 26-year-old female with PMH of cardiomyopathy, CKD. Admitted for Sirs Attending Attestation Patient seen and examined. Case reviewed and discussed with the resident team. Agree with plan of care as discussed with me and documented in the resident note. Problem List: (1) SIRS (systemic inflammatory response syndrome) Status: Acute Plan: Patient met SIRS criteria based on fever and tachycardia on admission. Fever and pulse has since improved with NSAIDs. History complicated by multiple admissions related to possible UTI, pneumonia, cellulitis, CHF exacerbation. Patient now with diarrhea after utilization of clindamycin however she does continue have faint erythema on the lower abdomen at the site of recent cellulitis infection. However patient does not have leukocytosis which was present on her prior admission. Etiology of symptoms. Unclear at this time as there are multiple sources and symptoms. Differential includes pericarditis vs C. difficile vs pneumonia vs cellulitis vs UTI. Since patient met SIRS criteria with a recent history of infections, will treat more aggressively. -UA and chest x-ray negative for infectious etiology -No leukocytosis or lactic acidosis -C. difficile and stool studies -Urine culture and blood culture pending -Influenza, legionella, and pneumococcal ordered Medications: * Rocephin 12/09 * Metronidazole 12/09 * will consider adding MRSA coverage with linezolid if patient worsens clinically * Zofran and Reglan for nausea/vomiting (2) Chest pain Status: Acute Plan: Chest pain may be due to decreased perfusion versus pericarditis as patient does endorse improvement in symptoms when sitting up. Most recent echo on 11/2016 showed an EF of 15% -BNP elevated to greater than 5000 -ACS evaluation -EKG: Sinus rhythm with increased rate. Left axis deviation. Intervals okay. Left atrial enlargement. Isolated ST elevation in lead V2. T wave inversions in lateral leads -Repeat limited echo to evaluate for pericardial effusion (3) Cardiomyopathy Status: Chronic Plan: Continue home meds. See more detailed plan above * Bumex 2 mg BID * KCl 10meq Daily * Sacubitril/Valsartan * Carvedilol 12.5 mg BID (4) Chronic kidney disease Status: Chronic Plan: Creatinine improved slightly since last creatinine on 12/06. Electrolytes otherwise unremarkable -continue to monitor I&Os (5) Nutrition, metabolism, and development symptoms Status: Acute Plan: Diet: Clear liquid Electrolytes: Unremarkable, continue to monitor Fluids: NS bolus 1. Limit fluid resuscitation DVT prophylaxis: Heparin GI prophylaxis: Not indicated Chronic medical conditions: * DM: Low-dose sliding scale Jennie Denise MD Dec 10, 2016 11:58
[2016-12-10 12:00] VITALS: BP 119/61; PULSE 85; RESP 19; TEMP 99.9; O2SAT 99
[2016-12-10] MEDS: HYDROmorphone HCL 4 MG TAB PO SCH ×3 (13:50→23:25)
--- NOTE | 2016-12-10 14:03 | HHI.FPPN ---
Subjective Remarks Patient seen and examined this morning by medical team. No acute events overnight with stable vital signs. Her only current complaint is lower back pain and muscle aches in her legs. She states that her current pain medications are not controlling her pain as well as her home medications. She is on Dilaudid 4mg Q4H at home, however her reconciled medications list that she takes the Dilaudid Q6H. Of note she did have 2 BMs this morning with some solid stool. She also endorsed decreased dysuria at the time of voids. She also states that she felt febrile overnight with profuse sweating. Otherwise she has no complaints and denies any chest pain, SOB, NV, or calf tenderness. Objective Vitals Vital Signs Date Time Temp Pulse Resp B/P Pulse Ox O2 Delivery O2 Flow Rate FiO2 12/10/16 08:00 98.3 80 19 102/62 95 12/10/16 04:00 98.0 87 18 109/62 92 12/09/16 23:00 85 12/09/16 21:35 98 Room Air 12/09/16 20:19 100.0 102 18 127/78 98 Nasal Cannula 2 12/09/16 18:12 99.9 92 20 95 Nasal Cannula 2 12/09/16 16:48 93 Room Air 12/09/16 15:33 100.7 114 22 139/99 93 12/09/16 15:33 100.7 114 22 139/99 93 12/09/16 15:20 100.7 114 22 139/99 93 Result Diagram: 12/10/16 0701 12/10/16 0701 Objective Remarks GEN: Well nourished CF, in some distress with muscle aches. EYES: Conjunctiva normal, PERRLA, EOMI. NECK: Supple LUNGS: Clear A-P, respiratory effort is normal. CARDIOVASCULAR: RR without murmur or gallop. No significant edema. GI/ABD: Soft without masses, without organomegaly. +BS. NEURO: No focal deficits. SKIN: Color normal, no rashes noted. Some erythema of the skin of the lower abdomen HEME/LYMPH: No bruising, petechia or significant adenopathy MUSC: Back is normal in appearance. Extremities are normal in appearance, but her legs are tender to mild palpation. PSYCH/MENTAL STATUS: Alert and oriented x 3. A/P Assessment and Plan 26-year-old female with PMH of cardiomyopathy, CKD. Admitted for SIRS. Discharge Planning Discharge pending blood cultures and improved kidney function. Problem List: (1) SIRS (systemic inflammatory response syndrome) Status: Acute Plan: Patient met SIRS criteria based on fever and tachycardia on admission. Fever and pulse has since improved with NSAIDs. History complicated by multiple admissions related to possible UTI, pneumonia, cellulitis, CHF exacerbation. Patient now with diarrhea after utilization of clindamycin however she does continue have faint erythema on the lower abdomen at the site of recent cellulitis infection. However patient does not have leukocytosis which was present on her prior admission. Etiology of symptoms. Unclear at this time as there are multiple sources and symptoms. Differential includes pericarditis vs C. difficile vs pneumonia vs cellulitis vs UTI. Since patient met SIRS criteria with a recent history of infections, will treat more aggressively. -UA and chest x-ray negative for infectious etiology -No leukocytosis or lactic acidosis -C. difficile and stool studies -Urine culture and blood culture pending -Influenza, legionella, and pneumococcal ordered Medications: * Rocephin 12/09 * Metronidazole 12/09 * Consider adding MRSA coverage with linezolid if patient worsens clinically * Zofran and Reglan for nausea/vomiting (2) Chest pain Status: Acute Plan: Chest pain may be due to decreased perfusion versus pericarditis as patient does endorse improvement in symptoms when sitting up. Most recent echo on 11/2016 showed an EF of 15% -BNP elevated to greater than 5000 -ACS evaluation -EKG: Sinus rhythm with increased rate. Left axis deviation. Intervals okay. Left atrial enlargement. Isolated ST elevation in lead V2. T wave inversions in lateral leads -Repeat echo cancelled as patient recently had study completed on 11/28/16 with an EF of 15% (3) Cardiomyopathy Status: Chronic Plan: Continue home meds. See more detailed plan above * Bumex 2 mg BID * KCl 10meq Daily * Sacubitril/Valsartan * Carvedilol 12.5 mg BID (4) Chronic kidney disease Status: Chronic Plan: Creatinine improved slightly since last creatinine on 12/06. Creatinine 2.75 on admission. Electrolytes otherwise unremarkable. -Creatinine increased to 3.11 from admission -Continue to monitor I&Os -Consider Nephrology consult without improving renal function with AM labs (5) Myalgia Status: Acute Plan: Patient with LE myalgias since admission. -CK: elevated to 224 at admission, trended to 219, 193 -Adjusted pain management to patient's home medications: Dilaudid 4mg Q6H with 0.5mg IV Q3H for breakthrough pain -Continue to monitor (6) Nutrition, metabolism, and development symptoms Status: Acute Plan: Diet: Advanced to heart healthy diet as patient is stooling well with appropriate appetite Electrolytes: Unremarkable, continue to monitor Fluids: NS bolus 1. Limit fluid resuscitation DVT prophylaxis: Heparin GI prophylaxis: Not indicated Chronic medical conditions: * DM: Low-dose sliding scale Bryan Herr MD R1 Dec 10, 2016 14:03
--- NOTE | 2016-12-10 14:26 | EKG ---
Date Performed: 12/09/2016 Time Performed: 19:53:02 PTAGE: 26 years EKG: SINUS TACHYCARDIA POSSIBLE LEFT ATRIAL ENLARGEMENT POSSIBLE LEFT VENTRICULAR HYPERTROPHY MO DERATE T-WAVE ABNORMALITY, CONSIDER LATERAL ISCHEMIA ABNORMAL ECG PREVIOUS TRACING : 12/09/2016 15.26 DOCTOR: Reynaldo Parker Interpretating Date/Time 12/10/2016 14:23:24
--- NOTE | 2016-12-10 14:33 | EKG ---
Date Performed: 12/09/2016 Time Performed: 15:26:50 PTAGE: 26 years EKG: SINUS TACHYCARDIA POSSIBLE LEFT ATRIAL ENLARGEMENT POSSIBLE LEFT VENTRICULAR HYPERTROPHY No nspecific ST changes ABNORMAL ECG PREVIOUS TRACING : 11/26/2016 11.33 DOCTOR: Reynaldo Parker Interpretating Date/Time 12/10/2016 14:29:35
[2016-12-10 16:00] VITALS: BP_SYST 102; BP_SYST 125; BP_DIAS 62; BP_DIAS 67; PULSE 80; RESP 19; TEMP 102; TEMP 98.7; O2SAT 100; O2SAT 99
[2016-12-10 18:00] VITALS: PULSE 81
[2016-12-10 20:00] VITALS: BP 132/57; PULSE 91; RESP 18; TEMP 98.3; O2SAT 97
[2016-12-10] MEDS: cefTRIAXone INJ 1,000 MG in SODIUM CHLORIDE 0.9% INJ 100 ML IV SCH (22:01)
[2016-12-10] MEDS: ALPRAZolam 0.5 MG TAB PO PRN (22:31)
[2016-12-11] VITALS (7 sets, daily range): BP systolic 97–120; BP diastolic 50–76; PULSE 69–96; RESP 18; TEMP 96.4–98; O2SAT 95–98
[2016-12-11] MEDS: HYDROmorphone HCL PF 1 MG/ML VIAL IV PRN ×5 (00:36→22:04)
[2016-12-11] MEDS: metroNIDAZOLE 500 MG INJ 100 ML IV SCH ×2 (03:57→10:39)
[2016-12-11] MEDS: HEPARIN SODIUM - SQ 10,000 UNITS/ML VIAL SQ SCH ×3 (03:57→21:52)
[2016-12-11] MEDS: SODIUM CHLORIDE 0.9% FLUSH 5 ML FLUSH FLUSH PRN ×2 (03:57→04:59)
[2016-12-11] MEDS: HYDROmorphone HCL 4 MG TAB PO SCH ×4 (06:00→23:46)
[2016-12-11] MEDS: INSULIN ASPART SUPPLEMENTAL SCALE SQ SCH ×4 (06:01→21:00)
[2016-12-11 06:11] LABS: C. DIFF EPI 027 PRESUMPTIVE NEGATIVE (NEGATIVE); C. DIFF TOXIN PCR NEGATIVE (NEGATIVE)
--- NOTE | 2016-12-11 08:12 | HHI.FPPN ---
Subjective Remarks Patient seen and examined this morning. No acute events overnight with stable vital signs. This morning she states that her cough has continued and transitioned from clear to brown/green in color. She endorses some subjective fevers, ABD pain, with continued diffuse muscular pain, although the muscle pain has improved overall from yesterday's evaluation. I encouraged her to increase her PO intake as she has not been eating or drinking much throughout the day. She did have 2 BMs with solid stool yesterday and was informed that she was negative for C. diff. We also discussed the need for ambulation and physical therapy which she was agreeable to. Otherwise she denies any chest pain , SOB, or NVD. (Bryan Herr MD R1) Objective Vitals Vital Signs Date Time Temp Pulse Resp B/P Pulse Ox O2 Delivery O2 Flow Rate FiO2 12/11/16 00:00 98.0 96 18 97/76 98 12/10/16 20:00 98.3 91 18 132/57 97 12/10/16 18:00 81 12/10/16 16:00 102.0 80 19 102/62 99 12/10/16 16:00 98.7 80 19 125/67 100 12/10/16 12:00 99.9 85 19 119/61 99 I/O 12/10/16 12/10/16 12/10/16 12/11/16 12/11/16 12/11/16 07:00 15:00 23:00 07:00 15:00 23:00 Intake Total 600 ml 1163 ml Balance 600 ml 1163 ml Intake Oral 600 ml 850 ml IV Total 313 ml # Voids 3 4 4 3 # Bowel Movements 1 1 (Bryan Herr MD R1) Result Diagram: 12/10/16 0701 12/10/16 07 Objective Remarks GEN: Well nourished CF overall improved from yesterday's evaluation, but still in mild distress. EYES: Conjunctiva normal, PERRLA, EOMI. NECK: Supple LUNGS: Clear A-P, Respiratory effort is normal. CARDIOVASCULAR: RR without murmur or gallop. No significant edema. GI/ABD: Soft without masses, without organomegaly. +BS. NEURO: No focal deficits. SKIN: Color normal, no rashes noted. Some erythema of the skin of the lower abdomen. HEME/LYMPH: No bruising, petechia or significant adenopathy. MUSC: Back is normal in appearance. Extremities are normal in appearance, but her legs are tender to mild palpation, states overall improved from yesterday. PSYCH/MENTAL STATUS: Alert and oriented x 3. (Bryan Herr MD R1) A/P Assessment and Plan 26-year-old female with PMH of cardiomyopathy, CKD. Admitted for SIRS. Discharge Planning Discharge pending blood cultures and improved kidney function. (Bryan Herr MD R1) Attending Attestation Patient seen and examined. Case reviewed and discussed with the resident team. Agree with plan of care as discussed with me and documented in the resident note. (Jennie Denise MD) Problem List: (1) SIRS (systemic inflammatory response syndrome) Status: Acute Plan: Patient met SIRS criteria based on fever and tachycardia on admission. Fever and pulse has since improved with NSAIDs. History complicated by multiple admissions related to possible UTI, pneumonia, cellulitis, and CHF exacerbation. Patient now with diarrhea after utilization of clindamycin however she does continue have faint erythema on the lower abdomen at the site of recent cellulitis infection. However, patient does not have leukocytosis which was present on her prior admission. Etiology of symptoms. Unclear at this time as there are multiple sources and symptoms. Differential includes pericarditis vs C. difficile vs pneumonia vs cellulitis vs UTI. Since patient met SIRS criteria with a recent history of infections, will treat more aggressively. -UA and chest x-ray negative for infectious etiology -No leukocytosis or lactic acidosis -C. difficile: Negative -Stool studies: No WBC -Urine culture and blood culture: negative day 2 -Influenza, legionella, and pneumococcal: negative Medications: * Rocephin as coverage for cellulitis is complete * Metronidazole as C. diff is negative * Consider adding MRSA coverage with linezolid if patient worsens clinically * Zofran and Reglan for nausea/vomiting (2) Chest pain Status: Acute Plan: Chest pain may be due to decreased perfusion versus pericarditis as patient does endorse improvement in symptoms when sitting up. Most recent echo on 11/2016 showed an EF of 15% -BNP elevated to greater than 5000 -ACS evaluation -EKG: Sinus rhythm with increased rate. Left axis deviation. Intervals okay. Left atrial enlargement. Isolated ST elevation in lead V2. T wave inversions in lateral leads -Repeat echo cancelled as patient recently had study completed on 11/28/16 with an EF of 15% (3) Cardiomyopathy Status: Chronic Plan: Continue home meds. See more detailed plan above * Bumex decreased to 1mg BID to assist with renal function. * KCl 10meq Daily * Sacubitril/Valsartan * Carvedilol 12.5 mg BID (4) Chronic kidney disease Status: Chronic Plan: Per chart review, CKD stage 3 likely due to cardiorenal syndrome. Creatinine 1.91 with GFR 32 on 10/05 with baseline ranging 2.5-3.0 based on chart review. Creatinine 2.75 on admission. Electrolytes otherwise unremarkable. -Creatinine increased to 3.06 from admission -Decreased Bumex to 1mg BID to assist with renal function -Continue to monitor I&Os -Consider Nephrology consult without improving renal function with AM labs (5) Myalgia Status: Acute Plan: Patient with LE myalgias since admission. -CK: elevated to 224 at admission, trended to 219, 193 -Adjusted pain management to patient's home medications: Dilaudid 4mg Q6H with 0.5mg IV Q3H for breakthrough pain -Continue to monitor (6) Nutrition, metabolism, and development symptoms Status: Acute Plan: Diet: Advanced to heart healthy diet as patient is stooling well with appropriate appetite Electrolytes: Unremarkable, continue to monitor Fluids: NS bolus 1. Limit fluid resuscitation DVT prophylaxis: Heparin GI prophylaxis: Not indicated PT: ordered, appreciate recommendations Chronic medical conditions: * DM: Low-dose sliding scale (Bryan Herr MD R1) Bryan Herr MD R1 Dec 11, 2016 08:12 Jennie Denise MD Dec 11, 2016 14:31
[2016-12-11 09:40] LABS: AUTOMATED NEUTROPHIL # 1.5 TH/MM3 (1.8-7.7); BASOPHIL % 1.5 % (0.0-2.0); EOSINOPHIL % 1.1 % (0.0-4.0); HEMO FLAGS DIFF FINAL; LYMPH % 39.8 % (9.0-44.0); LYMPHOCYTE # 1.2 TH/MM3 (1.0-4.8); MEAN CELL VOLUME 85.5 FL (80.0-100.0); MEAN CORPUSCULAR HEMOGLOBIN 28.6 PG (27.0-34.0); MEAN CORPUSCULAR HGB CONC 33.4 % (32.0-36.0); MONO % 8.9 % (0.0-8.0); NEUT % 48.7 % (16.0-70.0); PLATELET COUNT 135 TH/MM3 (150-450); RED BLOOD COUNT 4.09 MIL/MM3 (4.00-5.30); RED CELL DISTRIBUTION WIDTH 16.4 % (11.6-17.2); WHITE BLOOD COUNT 3.1 TH/MM3 (4.0-11.0)
[2016-12-11 10:22] LABS: BICARBONATE 29.6 MEQ/L (21.0-32.0); CALCIUM-PROTEIN CORRECTED 8.5 MG/DL (8.5-10.1); POTASSIUM 3.8 MEQ/L (3.5-5.1); TOTAL BILIRUBIN ADULT 0.3 MG/DL (0.2-1.0)
[2016-12-11] MEDS: CARVEDILOL 12.5 MG TAB PO SCH ×2 (10:39→21:52)
[2016-12-11] MEDS: BUMETANIDE 1 MG TAB PO SCH ×2 (10:40→21:52)
[2016-12-11] MEDS: SACUBITRIL/VALSARTAN 97 MG-103 MG TAB PO SCH (10:41)
[2016-12-11] MEDS: SODIUM CHLORIDE 0.9% FLUSH 5 ML FLUSH FLUSH SCH ×2 (10:42→21:53)
[2016-12-11] MEDS: POTASSIUM CHLORIDE 10 MEQ CONTROLLED RELEASE TAB PO SCH (10:57)
[2016-12-11] MEDS ORDERED: HONEY PO PRN (14:15)
--- NOTE | 2016-12-11 14:24 | ECHLIM ---
Study Study Date:12/10/2016 STUDY CONCLUSIONS SUMMARY - Left ventricle: The cavity size was severely dilated. Wall thickness was normal. Systolic function was severely reduced. The estimated ejection fraction was 15%, = 60%. Diffuse hypokinesis. - Mitral valve: Moderate to severe regurgitation. - Tricuspid valve: Moderate-severe regurgitation. - Pulmonary arteries: PA peak pressure: 60mm Hg (S). If LV function is below 40, please consider prescribing an ACEI or ARB or document rationale for non-use. PROCEDURE DATA STUDY STATUS: Elective. Procedure: Transthoracic echocardiography. Image quality was good. Scanning was performed from the parasternal, apical, and subcostal acoustic windows. Study completion: The patient tolerated the procedure well. Transthoracic echocardiography. M-mode, complete 2D, complete spectral Doppler, and color Doppler. Patient status: Inpatient. CARDIAC ANATOMY LEFT VENTRICLE: The cavity size was severely dilated. Wall thickness was normal. Systolic function was severely reduced. The estimated ejection fraction was 15%, = 60%. Diffuse hypokinesis. AORTIC VALVE: Trileaflet; normal thickness leaflets. Doppler: Transvalvular velocity was within the normal range. There was no stenosis. No regurgitation. AORTA: Aortic root: The aortic root was normal in size. MITRAL VALVE: Structurally normal valve. Doppler: Transvalvular velocity was within the normal range. There was no evidence for stenosis. Moderate to severe regurgitation. Peak gradient: 6mm Hg (D). LEFT ATRIUM: The atrium was normal in size. RIGHT VENTRICLE: The cavity size was normal. Wall thickness was normal. PULMONIC VALVE: Doppler: Transvalvular velocity was within the normal range. There was no evidence for stenosis. No regurgitation. TRICUSPID VALVE: Structurally normal valve. Doppler: Transvalvular velocity was within the normal range. Moderate-severe regurgitation. PULMONARY ARTERY: The main pulmonary artery was normal-sized. Systolic pressure was within the normal range. RIGHT ATRIUM: The atrium was normal in size. PERICARDIUM: There was no pericardial effusion. SYSTEMIC VEINS: Inferior vena cava: The vessel was normal in size. BASIC MEASUREMENTS ADULT Normal Left ventricle LV internal dimension, ED, chordal level, *71.6 mm 43-52 PLAX LV internal dimension, ES, chordal level, *67.8 mm 23-38 PLAX Fractional shortening, chordal level, PLAX *5 % >29 LV posterior wall thickness, ED 8.68 mm IVS/LVPW ratio, ED 0.84 <1.3 Ventricular septum Septal thickness, ED 7.31 mm Left atrium Anterior-posterior dimension 39 mm DOPPLER MEASUREMENTS ADULT Normal Main pulmonary artery Pressure, S *60 mm Hg =30 Mitral valve Peak E-wave velocity 125 cm/s Peak A-wave velocity 74.7 cm/s Peak gradient, D 6 mm Hg Peak E/A ratio 1.7 Maximal regurgitant velocity 485 cm/s Tricuspid valve Regurgitant peak velocity 334 cm/s Peak RV-RA gradient, S 45 mm Hg Maximal regurgitant velocity 334 cm/s Systemic veins Estimated CVP 15 mm Hg Right ventricle RV pressure, S *60 mm Hg <30 LEGEND: Mean values are shown as u=mean value. Asterisk (*) myrick values outside specified normal range. Prepared and signed by Reynaldo Parker [id number]
[2016-12-11] MEDS: ALPRAZolam 0.5 MG TAB PO PRN (22:20)
[2016-12-12] VITALS: BP 118/68; PULSE 68; RESP 18; TEMP 97.5; O2SAT 98
[2016-12-12] MEDS: HYDROmorphone HCL PF 1 MG/ML VIAL IV PRN ×3 (01:04→08:33)
[2016-12-12 04:00] VITALS: BP 113/62; PULSE 81; RESP 18; TEMP 97.8; O2SAT 96
[2016-12-12] MEDS: HEPARIN SODIUM - SQ 10,000 UNITS/ML VIAL SQ SCH (04:05)
[2016-12-12] MEDS: HYDROmorphone HCL 4 MG TAB PO SCH (05:47)
[2016-12-12] MEDS: INSULIN ASPART SUPPLEMENTAL SCALE SQ SCH (05:48)
[2016-12-12 07:17] LABS: MEAN CELL VOLUME 84.7 FL (80.0-100.0); MEAN CORPUSCULAR HEMOGLOBIN 28.3 PG (27.0-34.0); MEAN CORPUSCULAR HGB CONC 33.4 % (32.0-36.0); PLATELET COUNT 153 TH/MM3 (150-450); RED BLOOD COUNT 4.13 MIL/MM3 (4.00-5.30); RED CELL DISTRIBUTION WIDTH 15.8 % (11.6-17.2); REVIEW FLAG FINAL; WHITE BLOOD COUNT 3.4 TH/MM3 (4.0-11.0)
[2016-12-12 07:40] LABS: ALT (GPT) 17 U/L (10-53); ANION GAP 7 MEQ/L (5-15); AST (GOT) 30 U/L (15-37); BICARBONATE 30.6 MEQ/L (21.0-32.0); BLOOD UREA NITROGEN 31 MG/DL (7-18); CHLORIDE 101 MEQ/L (98-107); GLOMERULAR FILTRATION RATE 21 ML/MIN (>89); POTASSIUM 4.1 MEQ/L (3.5-5.1); SODIUM (NA) 139 MEQ/L (136-145)
[2016-12-12 07:42] LABS: ALKALINE PHOSPHATASE 121 U/L (45-117); TOTAL BILIRUBIN ADULT 0.3 MG/DL (0.2-1.0)
[2016-12-12 08:00] VITALS: BP 127/77; PULSE 94; RESP 18; TEMP 97.2; O2SAT 96
--- NOTE | 2016-12-12 08:27 | HHI.FPPN ---
Subjective Remarks No acute events overnight. Vital signs unremarkable. Patient has remained afebrile. This morning patient reports that she is feeling better and that her swelling has improved. She has been able to walk around the room and in the hallway without issues. States her chest pain and SOB or improving. Her biggest concern is her chronic pain. She does feel comfortable to be discharged today as she will be calling her golf club head inspector to set up an appointment early next week prior to following up at [place]. Because of patient' s concern of SOB, I did offer a respiratory walk test but patient declined at this time as she feels like she is fine. (Tatum Buck MD R2) Objective Vitals Vital Signs Date Time Temp Pulse Resp B/P Pulse Ox O2 Delivery O2 Flow Rate FiO2 12/12/16 04:00 97.8 81 18 113/62 96 12/12/16 00:00 97.5 68 18 118/68 98 12/11/16 22:00 73 12/11/16 19:56 97.5 69 18 120/69 97 12/11/16 16:29 97.0 83 18 106/58 96 12/11/16 12:32 96.4 73 18 100/50 95 12/11/16 10:02 15 I/O 12/11/16 12/11/16 12/11/16 12/12/16 12/12/16 12/12/16 07:00 15:00 23:00 07:00 15:00 23:00 Intake Total 720 ml 1300 ml 480 ml Balance 720 ml 1300 ml 480 ml Intake Oral 720 ml 1300 ml 480 ml # Voids 3 4 6 2 # Bowel Movements 1 1 (Tatum Buck MD R2) Result Diagram: 12/12/16 0645 12/12/16 0645 Objective Remarks GEN: Well-developed, well-nourished patient. No acute distress. Resting comfortably in bed. On room air. SKIN: Improving erythema of lower abdomen with no site of drainage or induration. CV: Regular rate and rhythm without obvious murmurs LUNGS: Clear to auscultation bilaterally. Normal respiratory effort. No wheezes , rales, rhonchi. GI: Soft, nontender, nondistended. EXT: No edema. No calf tenderness. NEURO/PSYCH: Awake, alert. Appropriate insight and judgment. Normal speech ( Tatum Buck MD R2) A/P Assessment and Plan 26-year-old female with PMH of cardiomyopathy, CKD. Admitted for SIRS. Discharge Planning Today dw Dr. Herr wdw Dr. Denise (Tatum Buck MD R2) Attending Attestation Patient seen and examined. Case reviewed and discussed with the resident team. Agree with plan of care as discussed with me and documented in the resident note. (Jennie Denise MD) Problem List: (1) SIRS (systemic inflammatory response syndrome) Status: Resolved Plan: Patient met SIRS criteria based on fever and tachycardia on admission. Etiology unclear as workup has been far been negative. -UA, C. difficile, stool studies and chest x-ray negative -Urine culture and blood culture: negative day 2 -Influenza, legionella, and pneumococcal: negative Medications: * Rocephin as coverage for cellulitis is complete * Metronidazole as C. diff is negative (2) Chest pain Status: Resolved Plan: Chest pain likely due to cardiomyopathy. Most recent echo on 11/2016 showed an EF of 15% -BNP elevated to greater than 5000 -ACS evaluation negative (3) Cardiomyopathy Status: Chronic Plan: Continue home meds. See more detailed plan above * Bumex decreased to 1mg BID to assist with renal function. * KCl 10meq Daily * Sacubitril/Valsartan * Carvedilol 12.5 mg BID (4) Chronic kidney disease Status: Chronic Plan: Per chart review, CKD stage 3 likely due to cardiorenal syndrome. Creatinine 1.91 with GFR 32 on 10/05 with baseline ranging 2.5-3.0 based on chart review. Creatinine 2.75 on admission. Electrolytes otherwise unremarkable. -Decreased Bumex to 1mg BID to assist with renal function, creatinine improved today -Continue to monitor I&Os (5) Nutrition, metabolism, and development symptoms Status: Acute Plan: Diet: Advanced to heart healthy diet Electrolytes: Unremarkable, continue to monitor Fluids: None DVT prophylaxis: Heparin GI prophylaxis: Not indicated Chronic medical conditions: * DM: Low-dose sliding scale (Tatum Buck MD R2) Tatum Buck MD R2 Dec 12, 2016 08:27 Jennie Denise MD Dec 12, 2016 13:27 -CK: elevated to 224 at admission, trended to 219, 193 -Adjusted pain management to patient's home medications: Dilaudid 4mg Q6H with 0.5mg IV Q3H for breakthrough pain -Continue to monitor (6) Nutrition, metabolism, and development symptoms Status: Acute Plan: Diet: Advanced to heart healthy diet as patient is stooling well with appropriate appetite Electrolytes: Unremarkable, continue to monitor Fluids: NS bolus 1. Limit fluid resuscitation DVT prophylaxis: Heparin GI prophylaxis: Not indicated PT: ordered, appreciate recommendations Chronic medical conditions: * DM: Low-dose sliding scale Tatum Buck MD R2 Dec 12, 2016 08:27
[2016-12-12] MEDS ORDERED: ALPR.5 PO (08:33)
[2016-12-12] MEDS: POTASSIUM CHLORIDE 10 MEQ CONTROLLED RELEASE TAB PO SCH (08:33)
[2016-12-12] MEDS ORDERED: DILA4TAB2 PO (08:33)
[2016-12-12] MEDS: CARVEDILOL 12.5 MG TAB PO SCH (08:33)
[2016-12-12] MEDS ORDERED: BUME1TAB PO (08:33)
[2016-12-12] MEDS ORDERED: ZOFR4TAB3 SL (08:33)
[2016-12-12] MEDS: BUMETANIDE 1 MG TAB PO SCH (08:34)
[2016-12-12] MEDS: SODIUM CHLORIDE 0.9% FLUSH 5 ML FLUSH FLUSH SCH (08:34)
[2016-12-12] MEDS: SACUBITRIL/VALSARTAN 97 MG-103 MG TAB PO SCH (08:34)
--- NOTE | 2016-12-12 08:34 | HHI.DCPOC ---
Discharge Care Plan Diagnosis: (1) SIRS (systemic inflammatory response syndrome) (2) Fever (3) Chronic kidney disease (4) Cardiomyopathy (5) Chest pain Goals to Promote Your Health * To prevent worsening of your condition and complications * To maintain your health at the optimal level Directions to Meet Your Goals Take your medications as prescribed Follow your dietary instruction Follow activity as directed Keep your appointments as scheduled Take your immunizations and boosters as scheduled If your symptoms worsen call your PCP, if no PCP go to Urgent Care Center or Emergency Room Smoking is Dangerous to Your Health. Avoid second hand smoke Call the 24-hour hour crisis hotline for domestic abuse at Tatum Buck MD R2 Dec 12, 2016 08:34
--- NOTE | 2016-12-12 12:24 | HHI.DS ---
Discharge Summary Admission Date Dec 09, 2016 at 18:35 Discharge Date: Dec 12, 2016 Admitting Diagnosis SEPSIS (1) SIRS (systemic inflammatory response syndrome) Diagnosis: Principal Plan: Patient met SIRS criteria based on fever and tachycardia on admission. Etiology unclear as workup has been far been negative. -UA, C. difficile, stool studies and chest x-ray negative -Urine culture and blood culture: negative day 2 -Influenza, legionella, and pneumococcal: negative Medications: * Rocephin as coverage for cellulitis is complete * Metronidazole as C. diff is negative (2) Chest pain Plan: Chest pain likely due to cardiomyopathy. Most recent echo on 11/2016 showed an EF of 15% -BNP elevated to greater than 5000 -ACS evaluation negative (3) Cardiomyopathy Plan: Continue home meds. See more detailed plan above * Bumex decreased to 1mg BID to assist with renal function. * KCl 10meq Daily * Sacubitril/Valsartan * Carvedilol 12.5 mg BID (4) Chronic kidney disease Plan: Per chart review, CKD stage 3 likely due to cardiorenal syndrome. Creatinine 1.91 with GFR 32 on 10/05 with baseline ranging 2.5-3.0 based on chart review. Creatinine 2.75 on admission. Electrolytes otherwise unremarkable. -Decreased Bumex to 1mg BID to assist with renal function, creatinine improved today -Continue to monitor I&Os (5) Nutrition, metabolism, and development symptoms Plan: Diet: Advanced to heart healthy diet Electrolytes: Unremarkable, continue to monitor Fluids: None DVT prophylaxis: Heparin GI prophylaxis: Not indicated Chronic medical conditions: * DM: Low-dose sliding scale Brief History Patient is a 26-year-old female with a PMH significant for cardiomyopathy with an EF of 15% and CKD. Patient was recently discharged from hospital on 12/06 for anasarca and cellulitis. Cellulitis was treated with clindamycin and anasarca was treated with diuretics with an improving creatinine. Additionally patient was admitted for another hospitalization on 11/26 and discharged on 11/28 for UTI, pneumonia, CHF exacerbation. For that hospitalization, treated with vancomycin and Zosyn in the ED but continued treatment on Rocephin and Levaquin. Patient is back again today due to a 2 day worsening of SOB, muscle aches, diarrhea, nausea/vomiting, cough. Patient has continued on clindamycin but developed watery diarrhea that is occurring every 3 -4 hours. Endorses dysuria that has been present ever since her last hospitalization. Since patient developed worsening SOB, she contacted her chuck splitter who recommended increasing carvedilol to 12.5 mg BID and discontinuing metolazone. She also noticed a fever taken orally with a high of 100.7 which she took Tylenol. She otherwise denies any sick contacts. Endorses chest pain that is located at her left upper chest close to her shoulder that is described as sharp and radiates down arm and neck. This pain does improve with sitting up. Also endorses rib pain due to frequency of cough and nausea/vomiting. CBC/BMP: 12/12/16 0645 12/12/16 0645 Significant Findings Laboratory Tests Test 12/09/16 12/09/16 12/09/16 12/10/16 16:30 17:16 19:55 00:19 Neutrophils (%) (Auto) 75.4 % (16.0-70.0) Monocytes (%) (Auto) 8.3 % (0.0-8.0) Lymphocytes # (Auto) 0.9 TH/MM3 (1.0-4.8) Prothrombin Time 12.0 SEC (9.8-11.6) Blood Urea Nitrogen 29 MG/DL (7-18) Creatinine 2.75 MG/DL (0.50-1.00) Estimat Glomerular Filtration 21 ML/MIN (>89) Rate Calcium Level 8.1 MG/DL (8.5-10.1) Total Creatine Kinase 224 U/L 219 U/L 193 U/L (26-192) (26-192) (26-192) Troponin I 0.07 NG/ML 0.09 NG/ML 0.07 NG/ML (0.02-0.05) (0.02-0.05) (0.02-0.05) B-Type Natriuretic Peptide GREATER THAN 5000 PG/ML (0-100) Total Protein 5.8 GM/DL (6.4-8.2) Albumin 2.2 GM/DL (3.4-5.0) Urine Protein GREATER THAN 600 mg/dL (NEG-TRACE) Urine Glucose (UA) 70 mg/dL (NEG) Urine Ketones TRACE mg/dL (NEG) Urine Occult Blood TRACE (NEG) Test 12/10/16 12/11/16 12/12/16 07:01 09:20 06:45 White Blood Count 2.6 TH/MM3 3.1 TH/MM3 3.4 TH/MM3 (4.0-11.0) (4.0-11.0) (4.0-11.0) Platelet Count 140 TH/MM3 135 TH/MM3 (150-450) (150-450) Monocytes (%) (Auto) 9.5 % (0.0-8.0) 8.9 % (0.0-8.0) Lymphocytes # (Auto) 0.5 TH/MM3 (1.0-4.8) Blood Urea Nitrogen 28 MG/DL (7-18) 28 MG/DL (7-18) 31 MG/DL (7-18) Creatinine 3.11 MG/DL 3.06 MG/DL 2.76 MG/DL (0.50-1.00) (0.50-1.00) (0.50-1.00) Estimat Glomerular Filtration 18 ML/MIN (>89) 18 ML/MIN (>89) 21 ML/MIN (>89) Rate Random Glucose 163 MG/DL 134 MG/DL (74-106) (74-106) Calcium Level 7.7 MG/DL 7.4 MG/DL 7.5 MG/DL (8.5-10.1) (8.5-10.1) (8.5-10.1) Total Protein 5.1 GM/DL 5.1 GM/DL 5.1 GM/DL (6.4-8.2) (6.4-8.2) (6.4-8.2) Albumin 1.8 GM/DL 1.8 GM/DL 2.0 GM/DL (3.4-5.0) (3.4-5.0) (3.4-5.0) Neutrophils # (Auto) 1.5 TH/MM3 (1.8-7.7) Alkaline Phosphatase 121 U/L (45-117) Imaging Last Impressions Chest X-Ray 12/09/16 1525 Signed Impressions: Service Date/Time: Friday, December 09, 2016 15:31 - CONCLUSION: 1. Peribronchial thickening without focal infiltrate. Cardiomegaly. Elías Morley MD PE at Discharge GEN: Well-developed, well-nourished patient. No acute distress. Resting comfortably in bed. On room air. SKIN: Improving erythema of lower abdomen with no site of drainage or induration. CV: Regular rate and rhythm without obvious murmurs LUNGS: Clear to auscultation bilaterally. Normal respiratory effort. No wheezes , rales, rhonchi. GI: Soft, nontender, nondistended. EXT: No edema. No calf tenderness. NEURO/PSYCH: Awake, alert. Appropriate insight and judgment. Normal speech Hospital Course Patient is a 26-year-old female with multiple comorbidities including cardiomyopathy. Prior to this admission, she was admitted for abdominal cellulitis and CHF exacerbation. Repeat admission was due to fever and tachycardia as patient met SIRS criteria. Etiology was unclear as there was no clear source of infection. She was initially treated with Rocephin and metronidazole to cover both C. difficile and potential remaining cellulitis. However C. difficile was negative and patient did complete course of antibiotics for cellulitis. Patient clinically improved with home medications but Bumex was decreased to 1 mg twice a day as her renal function acutely worsened on old dose of 2 mg twice a day. Patient continued to have chronic pain symptoms but was relatively controlled and was okay to be discharged home with follow-up with cardiology and outpatient pain management. Since patient also had chest pain on admission, ACS evaluation performed and was negative. Pt Condition on Discharge: Stable Discharge Disposition: Discharge Home Discharge Instructions DIET: Follow Instructions for: Heart Healthy Diet Activities you can perform: Regular-No Restrictions Follow up Referrals: Appointment for Follow Up - 1 Week Cardiology - 1 Week with Leona Cardoso MD New Medications: Bumetanide (Bumetanide) 1 Mg Tab 1 MG PO BID #60 TAB Hydromorphone (Dilaudid) 4 Mg Tab 4 MG PO Q6HR #50 Ref 0 TAB Continued Medications: Alprazolam (Xanax) 0.5 Mg Tab 0.5 MG PO Q12HR PRN Anxiety #20 TAB (This prescription has been renewed) Carvedilol (Carvedilol) 12.5 Mg Tab 12.5 MG PO BID #60 Ref 0 TAB Hydromorphone (Dilaudid) 4 Mg Tab 4 MG PO Q6HR PRN PAIN #20 TAB Insulin Aspart Inj (Novolog Inj) 1,000 Unit/10 Ml Vial 1-9 UNITS SQ ACHS Max dose at bedtime:( )units; sugars less than 70,(0)units; sugars 150-199,(1) unit; sugars 200-249,(3) units; sugars 250-299,(5) units; sugars 300-349,(7) units; sugars greater than 349,(9) units Blood Sugar Management #10 Ref 0 ML Ondansetron Odt (Zofran Odt) 4 Mg Tab 4 MG SL Q6HR PRN Nausea/Vomiting #30 Ref 0 TAB (This prescription has been renewed) Potassium Chloride ER (K-Tab) 10 Meq Tab 10 MEQ PO DAILY Electrolyte Replacement #30 Ref 0 TAB Sacubitril-Valsartan (Entresto) 97-103 Mg Tab 1 TAB PO DAILY Heart Failure #30 Ref 6 TAB Discontinued Medications: Bumetanide (Bumex) 1 Mg Tab 2 MG PO BID Fluid #120 Ref 6 TAB Tatum Buck MD R2 Dec 12, 2016 12:24
== END 2016-12-12 10:35 | disposition home or self-care (01) | DRG 871 ==
LOC: NEPE 15:15 → NEDA 18:35 → N05B 22:10
PROVIDERS: ADMIT Family Medicine; ATTEND Family Medicine
DX: R65.10 Systemic inflammatory response syndrome (SIRS) of non-infectious origin without acute organ dysfunction (principal); O90.3 Peripartum cardiomyopathy; Z76.82 Awaiting organ transplant status; I13.0 Hypertensive heart and chronic kidney disease with heart failure and stage 1 through stage 4 chronic kidney disease, or unspecified chronic kidney disease; I50.9 Heart failure, unspecified; N18.3 Chronic kidney disease, stage 3 (moderate); Z95.810 Presence of automatic (implantable) cardiac defibrillator; E11.9 Type 2 diabetes mellitus without complications; Z79.4 Long term (current) use of insulin; F12.90 Cannabis use, unspecified, uncomplicated; Z87.891 Personal history of nicotine dependence; G89.29 Other chronic pain; R07.81 Pleurodynia; R30.0 Dysuria; R19.7 Diarrhea, unspecified; R74.8 Abnormal levels of other serum enzymes
CPT/HCPCS: 71020; 80053; 81001; 82550; 82552; 82948; 83605; 83735; 83880; 84484; 85025; 85027; 85610; 85730; 87040; 87205; 87449; 87493; 87804; 93005; 93308; 96361; 96372; 96374; 96375; J0696; J1170; J1644; J1815; J2405; J2550; J2765; J7030

== ENCOUNTER 2016-12-25 20:10 | Inpatient (IN) | payer MEDICARE, MEDICAID ==
[~2016-12-25] VITALS: Ht 160 cm; Wt 86.4 kg
[~2016-12-25 20:10] MED LIST changes: +BUME1TAB PO; -BUME1TAB26 PO; +CARV12.52 PO; -CARV6.252 PO; -CLIN1CAP6 PO; -METO5TAB3 PO
[2016-12-25 20:12] VITALS: BP 193/110; PULSE 114; RESP 22; TEMP 97.6; O2SAT 98
--- NOTE | 2016-12-25 20:21 | PD ---
HPI Chief Complaint: Respiratory Distress Time Seen by Provider: 20:10 Travel History International Travel<30 days: No Contact w/Intl Traveler<30days: No History of Present Illness HPI 26-year-old female with history of cardiomyopathy, chronic kidney disease presents via EMS for evaluation of dyspnea. She has chronic dyspnea but it has been worse since yesterday. Times are worse when lying down flat. She woke up from sleeping last night with shortness of breath when laying down flat. She reports that it feels like she is fluid overloaded. She reports that previously she was prescribed Bumex 2 mg twice a day. Today she saw her certified medical transcriptionist at [facility] in [place] who increased her dose to 3 mg twice a day. She is oriented been taking 3 mg twice daily the past few days so she decided to come here for further evaluation and diuresis. In the past she was being prescribed metalozone as well but that was discontinued a few weeks ago. She does endorse a dry cough. Denies any chest pain, fevers or chills. No other complaints. PFSH Past Medical History Arthritis: No Asthma: No Autoimmune Disease: No Blood Disorders: No Anxiety: No Depression: No Heart Rhythm Problems: Yes Cancer: No Cardiomyopathy: Yes Cardiovascular Problems: Yes High Cholesterol: Yes Chemotherapy: No Chest Pain: Yes Congestive Heart Failure: Yes COPD: No Diabetes: Yes (ON SLIDING SCALE) Diminished Hearing: No Endocrine: Yes Gastrointestinal Disorders: Yes (Pancreatitis) GERD: No Genitourinary: Yes (Chronic Kidney disease) Headaches: Yes Hiatal Hernia: No Hypertension: Yes Immune Disorder: No Implanted Vascular Access Dvce: Yes Kidney Stones: No Musculoskeletal: Yes (Back) Neurologic: Yes (Neuropathy) Psychiatric: No Reproductive: Yes Respiratory: Yes Immunizations Current: Yes Migraines: Yes Radiation Therapy: No Renal Failure: Yes (stage 3 kidney disease) Seizures: No Sickle Cell Disease: No Sleep Apnea: No Thyroid Disease: No Ulcer: No : 1 Para: 1 Miscarriage: 0 : 0 Tubal Ligation: Yes Past Surgical History Abdominal Surgery: Yes (CHOLECYSTECTOMY) AICD: Yes Arteriovenous Shunt: No Body Medical Devices: PT WORE EXTERNAL LIFE VEST 05/15/13 Cardiac Surgery: Yes (AICD/PACEMAKER PLACED & REPLACED (LEFT CHEST)) Section: Yes Cholecystectomy: Yes Ear Surgery: No Endocrine Surgery: No Eye Surgery: No Genitourinary Surgery: No Gynecologic Surgery: Yes (, TUBAL) Insulin Pump: No Joint Replacement: No Oral Surgery: No Pacemaker: Yes Thoracic Surgery: No Tonsillectomy: Yes (7 years old.) Other Surgery: Yes (, Tubalitigation, Gallbladder) Social History Alcohol Use: No Tobacco Use: No Substance Use: Yes (Marijuan) Allergies-Medications (Allergen,Severity, Reaction): Coded Allergies: Toradol (Verified Adverse Reaction, Intermediate, SHAKING, 12/01/16) Reported Meds & Prescriptions Reported Meds & Active Scripts Active Dilaudid (Hydromorphone HCl) 4 Mg Tab 4 Mg PO Q6HR Bumetanide 1 Mg Tab 1 Mg PO BID Xanax (Alprazolam) 0.5 Mg Tab 0.5 Mg PO Q12HR PRN Zofran Odt (Ondansetron Odt) 4 Mg Tab 4 Mg SL Q6HR PRN Dilaudid (Hydromorphone HCl) 4 Mg Tab 4 Mg PO Q6HR PRN Entresto (Sacubitril-Valsartan) 97-103 Mg Tab 1 Tab PO DAILY K-Tab (Potassium Chloride) 10 Meq Tab 10 Meq PO DAILY Novolog Inj (Insulin Aspart) 1,000 Unit/10 Ml Vial 1-9 Units SQ ACHS Max dose at bedtime:( )units; sugars less than 70,(0)units; sugars 150-199,(1) unit; sugars 200-249,(3) units; sugars 250-299,(5) units; sugars 300-349,(7) units; sugars greater than 349,(9) units Reported Carvedilol 12.5 Mg Tab 12.5 Mg PO BID Review of Systems Except as stated in HPI: all other systems reviewed are Neg Physical Exam Narrative GENERAL: Well-developed well-nourished female in no acute distress. Tachycardic. SKIN: Warm and dry. HEAD: Atraumatic. Normocephalic. EYES: Pupils equal and round. No scleral icterus. No injection or drainage. ENT: No nasal bleeding or discharge. Mucous membranes pink and moist. NECK: Trachea midline. No JVD. CARDIOVASCULAR: Regular rate and rhythm. No murmur appreciated. RESPIRATORY: No accessory muscle use. Coarse breath sounds. GASTROINTESTINAL: Abdomen soft, non-tender, nondistended. Hepatic and splenic margins not palpable. MUSCULOSKELETAL: No obvious deformities. 1+ tibial edema bilaterally. NEUROLOGICAL: Awake and alert. No obvious cranial nerve deficits. Motor grossly within normal limits. Normal speech. PSYCHIATRIC: Appropriate mood and affect; insight and judgment normal. Data Data Last Documented VS Vital Signs Date Time Temp Pulse Resp B/P Pulse Ox O2 Delivery O2 Flow Rate FiO2 12/25/16 20:12 97.6 114 22 193/110 98 Orders Complete Blood Count With Diff (12/25/16 20:17) Comprehensive Metabolic Panel (12/25/16 20:17) B-Type Natriuretic Peptide (12/25/16 20:17) Magnesium (Mg) (12/25/16 20:17) Ckmb (Isoenzyme) Profile (12/25/16 20:17) Troponin I (12/25/16 20:17) Iv Access Insert/Monitor (12/25/16 20:17) Electrocardiogram (12/25/16 20:17) Ecg Monitoring (12/25/16 20:17) Oximetry (12/25/16 20:17) Chest, Single Ap (12/25/16 20:17) Ondansetron Inj (Zofran Inj) (12/25/16 20:30) Bumetanide Inj (Bumex Inj) (12/25/16 21:15) Morphine Inj (Morphine Inj) (12/25/16 21:45) Admit Order (Ed Use Only) (12/25/16 21:41) Labs Laboratory Tests Test 12/25/16 20:30 White Blood Count 7.0 TH/MM3 Red Blood Count 4.10 MIL/MM3 Hemoglobin 11.8 GM/DL Hematocrit 35.3 % Mean Corpuscular Volume 86.0 FL Mean Corpuscular Hemoglobin 28.9 PG Mean Corpuscular Hemoglobin 33.6 % Concent Red Cell Distribution Width 16.0 % Platelet Count 164 TH/MM3 Mean Platelet Volume 10.8 FL Neutrophils (%) (Auto) 70.9 % Lymphocytes (%) (Auto) 21.2 % Monocytes (%) (Auto) 3.7 % Eosinophils (%) (Auto) 2.8 % Basophils (%) (Auto) 1.4 % Neutrophils # (Auto) 5.0 TH/MM3 Lymphocytes # (Auto) 1.5 TH/MM3 Monocytes # (Auto) 0.3 TH/MM3 Eosinophils # (Auto) 0.2 TH/MM3 Basophils # (Auto) 0.1 TH/MM3 CBC Comment DIFF FINAL Differential Comment Sodium Level 141 MEQ/L Potassium Level 4.7 MEQ/L Chloride Level 109 MEQ/L Carbon Dioxide Level 23.5 MEQ/L Anion Gap 9 MEQ/L Blood Urea Nitrogen 35 MG/DL Creatinine 2.14 MG/DL Estimat Glomerular Filtration 28 ML/MIN Rate Random Glucose 97 MG/DL Calcium Level 8.3 MG/DL Magnesium Level 1.7 MG/DL Total Bilirubin 0.4 MG/DL Aspartate Amino Transf 13 U/L (AST/SGOT) Alanine Aminotransferase 15 U/L (ALT/SGPT) Alkaline Phosphatase 84 U/L Total Creatine Kinase 33 U/L Troponin I 0.03 NG/ML B-Type Natriuretic Peptide 2109 PG/ML Total Protein 6.0 GM/DL Albumin 2.4 GM/DL [facility] Medical Decision Making Medical Screen Exam Complete: Yes Emergency Medical Condition: Yes Medical Record Reviewed: Yes Interpretation(s) EKG reveals LVH Chest x-ray reveals cardiomegaly, otherwise unremarkable CBC unremarkable CMP BUN 35, creatinine 2.14, GFR 28, improved from previous in November. bnp 2109 Troponin, CK within normal limits Differential Diagnosis CHF exacerbation, pulmonary edema, pneumonia, spontaneous pneumothorax, pleural effusion, pulmonary embolism Narrative Course 26-year-old female with severe cardiomyopathy presents with worsening dyspnea and paroxysmal nocturnal dyspnea since yesterday. We will check lab work and EKG and chest x-ray. The patient will be given an IV dose of Bumex. Her lab work has been reviewed. Her BNP is elevated at 2100 consistent with CHF. Chest x-ray reveals compensated cardiomegaly with no acute pulmonary edema or pleural effusion. The patient has chronic kidney disease which appears improved from comparison her baseline. After a long discussion with the patient she would be preferred to be admitted for observation and diuresis as she does not feel comfortable going home feeling short of breath. Discussed with resident Dr. Holloway who is agreeable with admission. Procedures EKG Prior to Arrival: Yes Diagnosis Primary Impression: Acute on chronic systolic (congestive) heart failure Admitting Information Admitting Physician Requests: Observation Michael Welsh Dec 25, 2016 20:21
[2016-12-25] MEDS ORDERED: ONDANSETRON HCL 4 MG/2 ML VIAL IV PUSH ONE (20:30)
--- NOTE | 2016-12-25 20:39 | RADRPT ---
EXAM DATE/TIME: 12/25/2016 20:30 [facility] COMPARISON: CHEST PA & LAT, December 09, 2016, 15:31. INDICATIONS : Shortness of breath. MEDICAL HISTORY : Hypertension. Hypercholesterolemia. Pancreatitis. Neuropathy, CHF, Cardiomyopathy, Renal failure, Diabetes SURGICAL HISTORY : Pacemaker. Tubal ligation. Cholecystectomy. Tonsillectomy, ENCOUNTER: Initial ACUITY: 1 day PAIN SCORE: 0/10 LOCATION: Bilateral chest FINDINGS: No infiltrate, effusion or pneumothorax demonstrated. Mild cardiomegaly again noted, not significantl y changed. Left subclavian transvenous cardiac pacer/defibrillator with a single lead again noted. CONCLUSION: No acute cardiopulmonary disease. Stable, compensated mild cardiomegaly. Josef Rubin MD on December 25, 2016 at 20:37 Board Certified Radiologist. This report was verified electronically.
[2016-12-25 20:50] LABS: BASOPHIL # 0.1 TH/MM3 (0-0.2); BASOPHIL % 1.4 % (0.0-2.0); EOSINOPHIL # 0.2 TH/MM3 (0-0.4); EOSINOPHIL % 2.8 % (0.0-4.0); HEMATOCRIT 35.3 % (35.0-46.0); HEMO FLAGS DIFF FINAL; LYMPH % 21.2 % (9.0-44.0); LYMPHOCYTE # 1.5 TH/MM3 (1.0-4.8); MEAN CORPUSCULAR HEMOGLOBIN 28.9 PG (27.0-34.0); MEAN CORPUSCULAR HGB CONC 33.6 % (32.0-36.0); MONO % 3.7 % (0.0-8.0); NEUT % 70.9 % (16.0-70.0); PLATELET COUNT 164 TH/MM3 (150-450)
[2016-12-25 21:03] LABS: ANION GAP 9 MEQ/L (5-15); AST (GOT) 13 U/L (15-37); BICARBONATE 23.5 MEQ/L (21.0-32.0); BLOOD UREA NITROGEN 35 MG/DL (7-18); CHLORIDE 109 MEQ/L (98-107); GLOMERULAR FILTRATION RATE 28 ML/MIN (>89); MAGNESIUM 1.7 MG/DL (1.5-2.5); POTASSIUM 4.7 MEQ/L (3.5-5.1); SODIUM (NA) 141 MEQ/L (136-145)
[2016-12-25 21:09] LABS: ALKALINE PHOSPHATASE 84 U/L (45-117); ALT (GPT) 15 U/L (10-53); TOTAL BILIRUBIN ADULT 0.4 MG/DL (0.2-1.0)
[2016-12-25 21:10] LABS: CREATINE KINASE 33 U/L (26-192)
[2016-12-25] MEDS ORDERED: BUMETANIDE INJ 1 MG/4 ML VIAL IV PUSH ONE (21:15)
[2016-12-25] MEDS ORDERED: MORPHINE SULFATE 4 MG/ML INJ IV PUSH ONE (21:45)
[2016-12-25] MEDS ORDERED: NALOXONE HCL 0.4 MG/ML AMP IV PRN (22:15)
[2016-12-25] MEDS ORDERED: ONDANSETRON HCL 4 MG/2 ML VIAL IVP PRN (22:15)
[2016-12-25] MEDS ORDERED: SODIUM CHLORIDE 0.9% FLUSH 5 ML FLUSH FLUSH PRN (22:15)
[2016-12-25] MEDS ORDERED: GLUCAGON 1 MG/ML VIAL OTHER PRN (22:30)
[2016-12-25] MEDS ORDERED: FUROSEMIDE 40 MG/4 ML VIAL IV PUSH ONE (22:30)
[2016-12-25] MEDS ORDERED: DEXTROSE 50% IN WATER 50 ML VIAL(D50) IV PUSH PRN (22:30)
[2016-12-25] MEDS: SODIUM CHLORIDE 0.9% FLUSH 5 ML FLUSH FLUSH SCH (23:03)
[2016-12-25] MEDS: CARVEDILOL 12.5 MG TAB PO SCH (23:04)
[2016-12-25 23:34] VITALS: BP 139/102; PULSE 100; RESP 20; TEMP 97.6; O2SAT 97
--- NOTE | 2016-12-25 23:45 | HHI.HP ---
[facility] Service Family Medicine Primary Care Physician Lucio Andrade, DO Admission Diagnosis CHF exacerbation Diagnoses: International Travel<30 Days: No Contact w/Intl Traveler<30days: No History of Present Illness 26 year-old female with cardiomyopathy (EF 15%), AICD, and CKD presents to ED with shortness of breath x2 days and concern for fluid overload. Her chronic dyspnea worsened since yesterday- feels like she is "suffocating", worse by laying flat, and concerned that woke up short of breath last night. Has also noticed swelling of abdomen, vagina, and legs over the past several days. Does not weigh self, but pants fit tighter. No change in oral liquids (restricts to <1L/day), but decreased UOP. Denies chest pain. Feels this is similar to her prior episodes of fluid overload "when my Bumex stops working". Reports compliance with home Bumex 2mg BID. Actually had increased dose independently to 3mg BID several days ago. Follows with captain fire prevention bureau at [facility] for potential heart transplant who she saw this morning. He told her to continue Bumex at 3mg BID. Dr. Cardoso is her captain fire prevention bureau at [place]. Of note, patient was recently hospitalized 12/09/16-12/12/16 for CHF exacerbation and sepsis. Feels URI symptoms (rhinorrhea and wet cough with clear-yellow sputum) have persisted since discharge, though denies fevers or change in appetite. Also reporting severe chronic lumbar low back pain, no longer managed with Dilaudid since she ran out. Given #50 pills on discharge three weeks ago, but has not established elsewhere yet for pain management. Review of Systems Constitutional: COMPLAINS OF: Weight gain, Chills, DENIES: Fever Eyes: DENIES: Blurred vision Ears, nose, mouth, throat: COMPLAINS OF: Throat pain, Running Nose Respiratory: COMPLAINS OF: Cough, Shortness of breath Cardiovascular: COMPLAINS OF: Palpitations (fast heart rate), Lower Extremity Edema, DENIES: Chest pain Gastrointestinal: COMPLAINS OF: Abdominal pain (LUQ, chronic), Nausea, Vomiting (x1 before came in, threw up green gatorade just drank), DENIES: Constipation, Diarrhea Genitourinary: DENIES: Urgency, Hematuria, Dysuria Musculoskeletal: COMPLAINS OF: Muscle aches (intermittent, legs and arms), Back pain (lumbar) Integumentary: DENIES: Abnormal pigmentation, Pruritus, Rash Hematologic/lymphatic: DENIES: Bruising Neurologic: DENIES: Headache, Localized weakness, Paresthesias Psychiatric: COMPLAINS OF: Anxiety Past Family Social History Past Medical History cardiomyopathy- EF 10-20% (ECHO 11/2016), on transplant list CKD- Baseline Cr 2.5-3 DM2, well-controlled with Accu-checks AC and sliding scale insulin, home sugars run 90-120 Chronic low back pain Chronic pancreatitis- per pt, diagnosed two years ago, not currently following with GI (not take insurance) Past Surgical History AICD & defibrillator placement - patient had lead infection and required replacement of AICD Tubal ligation Cholecystectomy Tonsillectomy Reported Medications Bumetanide 3Mg PO BID (not 1mg BID as in med rec) "Potassium 100mg OTC" (pt elected to take this instead of prescribed KCl 10 mEq PO daily) Entresto 97-103mg 1 Tab PO daily Carvedilol 12.5 Mg Tab 12.5 Mg PO BID Xanax 0.5 Mg PO q12h PRN anxiety Novolog Inj 1-9 Units SQ ACHS. 150-199,(1) unit; sugars 200-249,(3) units; sugars 250-299,(5) units; sugars 300-349,(7) units; sugars greater than 349,(9) units Zofran ODT 4 Mg SL q6h PRN nausea/vomiting from pancreatitis Dilaudid 4mg PO q6h severe low back/abdominal pain Discharged with #50 tabs last admission three weeks prior. Not yet established with Dr. maldonado refill Allergies: Coded Allergies: Toradol (Verified Adverse Reaction, Mild, SHAKING, 12/26/16) Family History Mother - living, rheumatoid arthritis, hypertension Father- , pancreatitis Social History Lives with mother and daughter Tobacco: quit 2012, 1/2ppd prior Alcohol: none Illicit: quit 10/2016, prior periodic marijuana use Physical Exam Vital Signs Vital Signs Date Time Temp Pulse Resp B/P Pulse Ox O2 Delivery O2 Flow Rate FiO2 12/25/16 23:34 97.6 100 20 139/102 97 12/25/16 20:12 97.6 114 22 193/110 98 Physical Exam GEN: Obese female in mild respiratory distress SKIN: Warm and dry no rashes, ecchymoses. Back with acne. HEENT: PERRL. EOMI. No scleral icterus or injection. No nystagmus.Oropharynx without erythema, tonsillar hypertrophy or exudate. NECK: Thick neck. No LAD CV: Borderline tachycardic (100). Regular rhythm. No murmurs or gallops. RESP: Poor air movement secondary to poor effort by patient. Breath sounds equal bilaterally. Rales in lower and mid-lung florence bilaterally. No wheezing. Speaking in full sentences. Increased work of breathing/deep inhalations between sentences on 2L NC. GI: Obese non-distended abdomen, with significant pannus. Soft, tender to deep palpation of LUQ. No guarding. : External vaginal exam: swollen mons pubis and bilateral labia. No erythema. Mild L CVA tenderness. No R CVA tenderness. No gross deformity. Kyphosis cervical/thoracic spine. MSK: Extremities with 2+ pitting edema from ankle to knee. Bilateral malleoli are visible. No calf tenderness bilaterally. NEURO: Awake and alert. Cranial nerves II through XII intact. Motor and sensory grossly within normal limits. PSYCH: Moderate insight. Speaks slowly. Requires increased processing time between questions. Laboratory Laboratory Tests Test 12/25/16 20:30 White Blood Count 7.0 Red Blood Count 4.10 Hemoglobin 11.8 Hematocrit 35.3 Mean Corpuscular Volume 86.0 Mean Corpuscular Hemoglobin 28.9 Mean Corpuscular Hemoglobin 33.6 Concent Red Cell Distribution Width 16.0 Platelet Count 164 Mean Platelet Volume 10.8 Neutrophils (%) (Auto) 70.9 Lymphocytes (%) (Auto) 21.2 Monocytes (%) (Auto) 3.7 Eosinophils (%) (Auto) 2.8 Basophils (%) (Auto) 1.4 Neutrophils # (Auto) 5.0 Lymphocytes # (Auto) 1.5 Monocytes # (Auto) 0.3 Eosinophils # (Auto) 0.2 Basophils # (Auto) 0.1 CBC Comment DIFF FINAL Differential Comment Sodium Level 141 Potassium Level 4.7 Chloride Level 109 Carbon Dioxide Level 23.5 Anion Gap 9 Blood Urea Nitrogen 35 Creatinine 2.14 Estimat Glomerular Filtration 28 Rate Random Glucose 97 Calcium Level 8.3 Magnesium Level 1.7 Total Bilirubin 0.4 Aspartate Amino Transf 13 (AST/SGOT) Alanine Aminotransferase 15 (ALT/SGPT) Alkaline Phosphatase 84 Total Creatine Kinase 33 Troponin I 0.03 B-Type Natriuretic Peptide 2109 Total Protein 6.0 Albumin 2.4 Lipase 383 Result Diagram: 12/25/16202912/25/162029 Imaging Last Impressions Chest X-Ray 12/25/162016 Signed Impressions: Service Date/Time: Sunday, December 25, 2016 20:30 - CONCLUSION: No acute cardiopulmonary disease. Stable, compensated mild cardiomegaly. Josef Rubin MD Septic Shock Reassessment Heart: Regular rate and rhythm (borderline tachy, endorces pain) Lungs: Other (rales bilateral) Skin: Warm Peripheral Pulses: Bounding Right Radial Bounding Left Radial Capillary Refill: <2 seconds Assessment and Plan Assessment and Plan 26 year-old female with CHF (EF 15%), AICD, and CKD admitted to observation 12/25 for CHF exacerbation. Code Status Full Discussed Condition With SDW: Dr. Holloway Problem List: (1) Acute on chronic systolic (congestive) heart failure Status: Acute Plan: Severe cardiomyopathy with EF 10-20% (ECHO 11/2016) and AICD presents with SOB secondary to CHF exacerbation. Differential: medication non-compliance vs increased fluid intake vs increased dietary salt consumption vs [id number] CKD (UTI vs metabolic) vs arrhythmia vs sepsis Pt reports compliance with home Bumex with no changes in fluid intake or acute illness (apart from mild URI symptoms lingering for weeks). Attorney Law Clerk is Dr. Cardoso. Also sees Attorney Law Clerk at [facility] working on potential heart transplant. -Appears mildly fluid overloaded with BNP 2109, but reassuring CXR ( costophrenic angles visible b/l, no change from prev compensated mild cardiomegaly, no acute pulmonary disease) -Admit to observation under Dr. Carter -Consult cardiology, Dr. Cardoso -Appreciate recommendations regarding medication titration and management -Continue home carvedilol 12.5mg PO BID -Continue home Entresto 97-103 1 tab PO daily -ACS rule out -Troponin, CPK x1 negative -EKG: Sinus tachycardia (108). No interval changes. No axis deviation. No ST-elevations or depressions. Left ventricular hypertrophy. -Will not continue to trend -Diuresis -S/p Lasix 40mg IV x1 in ED -Give additional Lasix 40mg IV x1 -Lasix 40mg IV BID while inpatient -Continue home Bumex 3mg PO BID -Rule out potential causes -Renal function actually improved from baseline CKD (Bun/Cr 34/2.1, baseline Cr 2.5-3.0) -CBC, electrolytes, glucose within normal limits -U/A pending -UDS pending -Blood cultures (12/25) x2 pending -Supportive Care -Repeat CBC, CMP, BNP in AM -Continue home KCl 10mEq PO daily, follow K in AM -Vitals qh4, cardiac monitoring, pulse oximetry, oxygen support for saturation 89%+ -Renal diet, OOB ad tana (2) Anxiety Status: Acute Plan: -Continue home Xanax 0.5 q6h PRN anxiety (3) Diabetes type 2, controlled Status: Chronic Plan: Well-controlled, reported home sugars 90-120 -Hold home insulin -Accu-Cheks achs + low SSI (4) Chronic pancreatitis Status: Chronic Plan: Patient reported. Diagnosis two years ago. -Lipase ordered- within normal limits -Continue home Ondansetron ODT 4mg PRN nausea/vomiting -Recommend outpatient follow-up, needs to establish with GI as outpatient (5) Chronic lower back pain Status: Chronic Plan: -Hold home Dilaudid 4mg PO q6h as patient does not have a primary doctor managing this medication (was prescribed x1 at discharge two months ago) -After patient called for pain medication, added Dilaudid 2mg PO q8h PRN pain 5- 10mg -Follow up outpatient for pain management (6) Nutrition, metabolism, and development symptoms Status: Acute Plan: Fluids: Per PO, dietary restrict <1L/day Electrolytes: monitor and replete PRN, continue home 10mEq KCL/day Nutrition: Renal diet, as rare home insulin use, will not make carb restricted at present DVT prophylaxis: Heparin 5000 units SQ q8h, no SCDs secondary to c/o leg cramping GI prophylaxis: not indicated Mallorie Alas MD R1 Dec 25, 2016 23:45
[2016-12-26] VITALS (7 sets, daily range): BP systolic 117–131; BP diastolic 71–87; PULSE 84–95; RESP 17–20; TEMP 97.6–98.6; O2SAT 94–98
[2016-12-26] MEDS: HEPARIN SODIUM - SQ 10,000 UNITS/ML VIAL SQ SCH ×4 (00:55→21:49)
[2016-12-26 01:43] LABS: BLOOD, URINE NEG (NEG); COMMENT (UR) CULT NOT INDICATED; CULTURE IF INDICATED CULT NOT INDICATED; GLUCOSE,URINE NEG (NEG); KETONE, URINE NEG (NEG); NITRITE,URINE NEG (NEG); PH, URINE 6.5 (5.0-8.5); SQUAMOUS EPITHELIAL CELL URINE 1 /hpf (0-5); URINE COLOR COLORLESS (YELLW/STRAW)
[2016-12-26 02:20] LABS: AMPHETAMINE, URINE NEG (NEG); BARBITURATES, URINE NEG (NEG); COCAINE, URINE NEG (NEG)
[2016-12-26] MEDS: HYDROmorphone HCL 2 MG TAB PO PRN ×3 (05:42→21:50)
[2016-12-26 06:15] LABS: AUTOMATED NEUTROPHIL # 2.8 TH/MM3 (1.8-7.7); BASOPHIL # 0.1 TH/MM3 (0-0.2); BASOPHIL % 1.9 % (0.0-2.0); EOSINOPHIL # 0.2 TH/MM3 (0-0.4); EOSINOPHIL % 3.1 % (0.0-4.0); HEMATOCRIT 30.4 % (35.0-46.0); HEMO FLAGS DIFF FINAL; LYMPH % 33.2 % (9.0-44.0); LYMPHOCYTE # 1.7 TH/MM3 (1.0-4.8); MEAN CELL VOLUME 86.1 FL (80.0-100.0); MEAN CORPUSCULAR HEMOGLOBIN 28.9 PG (27.0-34.0); MEAN CORPUSCULAR HGB CONC 33.5 % (32.0-36.0); NEUT % 54.8 % (16.0-70.0); PLATELET COUNT 130 TH/MM3 (150-450); RED BLOOD COUNT 3.53 MIL/MM3 (4.00-5.30); RED CELL DISTRIBUTION WIDTH 15.2 % (11.6-17.2); WHITE BLOOD COUNT 5.1 TH/MM3 (4.0-11.0)
[2016-12-26] MEDS: INSULIN ASPART SUPPLEMENTAL SCALE SQ SCH ×4 (06:17→21:00)
[2016-12-26 06:48] LABS: ALT (GPT) 13 U/L (10-53); ANION GAP 10 MEQ/L (5-15); AST (GOT) 11 U/L (15-37); BICARBONATE 24.3 MEQ/L (21.0-32.0); BLOOD UREA NITROGEN 35 MG/DL (7-18); CHLORIDE 109 MEQ/L (98-107); GLOMERULAR FILTRATION RATE 29 ML/MIN (>89); POTASSIUM 4.3 MEQ/L (3.5-5.1); SODIUM (NA) 143 MEQ/L (136-145)
[2016-12-26 06:50] LABS: ALKALINE PHOSPHATASE 77 U/L (45-117); TOTAL BILIRUBIN ADULT 0.5 MG/DL (0.2-1.0)
[2016-12-26] MEDS: SODIUM CHLORIDE 0.9% FLUSH 5 ML FLUSH FLUSH SCH ×2 (08:53→21:45)
[2016-12-26] MEDS: CARVEDILOL 12.5 MG TAB PO SCH ×2 (08:53→21:45)
[2016-12-26] MEDS: SACUBITRIL/VALSARTAN 97 MG-103 MG TAB PO SCH (08:53)
[2016-12-26] MEDS: BUMETANIDE 1 MG TAB PO SCH ×2 (08:53→17:35)
[2016-12-26] MEDS: POTASSIUM CHLORIDE 10 MEQ CONTROLLED RELEASE TAB PO SCH (08:53)
[2016-12-26] MEDS: FUROSEMIDE 40 MG/4 ML VIAL IV PUSH SCH ×2 (08:54→17:35)
--- NOTE | 2016-12-26 09:09 | HHI.HP ---
[facility] Service Family Medicine Primary Care Physician Lucio Andrade, DO Admission Diagnosis CHF exacerbation Diagnoses: (1) Acute on chronic systolic (congestive) heart failure Diagnosis: Principal (2) Anxiety Diagnosis: Principal (3) Diabetes type 2, controlled Diagnosis: Principal (4) Chronic pancreatitis Diagnosis: Principal (5) Chronic lower back pain Diagnosis: Principal (6) Nutrition, metabolism, and development symptoms International Travel<30 Days: No Contact w/Intl Traveler<30days: No Known Affected Area: No History of Present Illness Ms Jones is a 26 year-old female with cardiomyopathy (EF 15%), AICD, and CKD presented to the ED with shortness of breath x2 days and concern for fluid overload. Her chronic dyspnea worsened since the day before admission- feels like she is "suffocating", worse by laying flat, and concerned that woke up short of breath last night. Has also noticed swelling of abdomen, vagina, and legs over the past several days. Does not weigh self, but pants fit tighter. No change in oral liquids (restricts to <1L/day), but decreased UOP. Denies chest pain. Feels this is similar to her prior episodes of fluid overload "when my Bumex stops working". Reports compliance with home Bumex 2mg BID. Actually had increased dose independently to 3mg BID several days ago. Follows with field sales trainer at [facility] for potential heart transplant who she saw this morning. He told her to continue Bumex at 3mg BID. Dr. Cardoso is her field sales trainer at [facility]. Of note, patient was recently hospitalized 12/09/16-12/12/16 for CHF exacerbation and sepsis. Feels URI symptoms (rhinorrhea and wet cough with clear-yellow sputum) have persisted since discharge, though denies fevers or change in appetite. Also reporting severe chronic lumbar low back pain, no longer managed with Dilaudid since she ran out. Given #50 pills on discharge three weeks ago, but has not established elsewhere yet for pain management. She is in comparison to the last time I saw her much better with her overall fluid status. She has diuresed wonderfully compared to some months ago and does continue to have some edema but had anasarca in the past. She does want more pain meds at this time for her chronic pain in her back. Review of Systems Other Constitutional: COMPLAINS OF: Weight gain, Chills, DENIES: Fever Eyes: DENIES: Blurred vision Ears, nose, mouth, throat: COMPLAINS OF: Throat pain, Running Nose Respiratory: COMPLAINS OF: Cough, Shortness of breath Cardiovascular: COMPLAINS OF: Palpitations (fast heart rate), Lower Extremity Edema, DENIES: Chest pain Gastrointestinal: COMPLAINS OF: Abdominal pain (LUQ, chronic), Nausea, Vomiting (x1 before came in, threw up green gatorade just drank), DENIES: Constipation, Diarrhea Genitourinary: DENIES: Urgency, Hematuria, Dysuria Musculoskeletal: COMPLAINS OF: Muscle aches (intermittent, legs and arms), Back pain (lumbar) Integumentary: DENIES: Abnormal pigmentation, Pruritus, Rash Hematologic/lymphatic: DENIES: Bruising Neurologic: DENIES: Headache, Localized weakness, Paresthesias Psychiatric: COMPLAINS OF: Anxiety Past Family Social History Past Medical History cardiomyopathy- EF 10-20% (ECHO 11/2016), on transplant list CKD- Baseline Cr 2.5-3 DM2, well-controlled with Accu-checks AC and sliding scale insulin, home sugars run 90-120 Chronic low back pain Chronic pancreatitis- per pt, diagnosed two years ago, not currently following with GI (not take insurance) Past Surgical History AICD & defibrillator placement - patient had lead infection and required replacement of AICD Tubal ligation Cholecystectomy Tonsillectomy Reported Medications Reported Medications Bumetanide 3Mg PO BID (not 1mg BID as in med rec) "Potassium 100mg OTC" (pt elected to take this instead of prescribed KCl 10 mEq PO daily) Entresto 97-103mg 1 Tab PO daily Carvedilol 12.5 Mg Tab 12.5 Mg PO BID Xanax 0.5 Mg PO q12h PRN anxiety Novolog Inj 1-9 Units SQ ACHS. 150-199,(1) unit; sugars 200-249,(3) units; sugars 250-299,(5) units; sugars 300-349,(7) units; sugars greater than 349,(9) units Zofran ODT 4 Mg SL q6h PRN nausea/vomiting from pancreatitis Dilaudid 4mg PO q6h severe low back/abdominal pain Discharged with #50 tabs last admission three weeks prior. Not yet established with Dr. to refill Allergies: Coded Allergies: Toradol (Verified Adverse Reaction, Mild, SHAKING, 12/26/16) Family History Mother - living, rheumatoid arthritis, hypertension Father- , pancreatitis Social History Lives with mother and daughter Tobacco: quit 2012, 1/2ppd prior Alcohol: none Illicit: quit 10/2016, prior periodic marijuana use Physical Exam Vital Signs Vital Signs Date Time Temp Pulse Resp B/P Pulse Ox O2 Delivery O2 Flow Rate FiO2 12/26/16 08:42 98.6 84 17 131/87 94 12/26/16 08:31 97 21 12/26/16 06:43 18 12/26/16 03:43 98.3 87 20 117/72 96 12/25/16 23:34 97.6 100 20 139/102 97 12/25/16 20:12 97.6 114 22 193/110 98 Physical Exam GEN: Obese female in no respiratory distress SKIN: Warm and dry no rashes, ecchymoses. Back with acne. HEENT: PERRL. EOMI. No scleral icterus or injection. No nystagmus.Oropharynx without erythema, tonsillar hypertrophy or exudate. NECK: Thick neck. No LAD CV: Borderline tachycardic (100). Regular rhythm. No murmurs or gallops. RESP: good air movement. Breath sounds equal bilaterally. Rales in lower and mid-lung [place] bilaterally on admission, better today. No wheezing. Speaking in full sentences. no increased work of breathing/deep inhalations between sentences on 2L NC. GI: Obese non-distended abdomen, with significant pannus much smaller than months prior. Soft, tender to deep palpation of LUQ. No guarding. : External vaginal exam: swollen mons pubis and bilateral labia. No erythema. Mild L CVA tenderness. No R CVA tenderness. No gross deformity. Kyphosis cervical/thoracic spine. MSK: Extremities with 2+ pitting edema from ankle to knee. Bilateral malleoli are visible. No calf tenderness bilaterally. NEURO: Awake and alert. Cranial nerves II through XII intact. Motor and sensory grossly within normal limits. PSYCH: Moderate insight. Speaks slowly. Requires increased processing time between questions. Laboratory Laboratory Tests Test 12/25/16 12/26/16 12/26/16 20:30 00:55 05:35 White Blood Count 7.0 5.1 Red Blood Count 4.10 3.53 Hemoglobin 11.8 10.2 Hematocrit 35.3 30.4 Mean Corpuscular Volume 86.0 86.1 Mean Corpuscular Hemoglobin 28.9 28.9 Mean Corpuscular Hemoglobin 33.6 33.5 Concent Red Cell Distribution Width 16.0 15.2 Platelet Count 164 130 Mean Platelet Volume 10.8 10.6 Neutrophils (%) (Auto) 70.9 54.8 Lymphocytes (%) (Auto) 21.2 33.2 Monocytes (%) (Auto) 3.7 7.0 Eosinophils (%) (Auto) 2.8 3.1 Basophils (%) (Auto) 1.4 1.9 Neutrophils # (Auto) 5.0 2.8 Lymphocytes # (Auto) 1.5 1.7 Monocytes # (Auto) 0.3 0.4 Eosinophils # (Auto) 0.2 0.2 Basophils # (Auto) 0.1 0.1 CBC Comment DIFF FINAL DIFF FINAL Differential Comment Sodium Level 141 143 Potassium Level 4.7 4.3 Chloride Level 109 109 Carbon Dioxide Level 23.5 24.3 Anion Gap 9 10 Blood Urea Nitrogen 35 35 Creatinine 2.14 2.08 Estimat Glomerular Filtration 28 29 Rate Random Glucose 97 99 Calcium Level 8.3 8.5 Magnesium Level 1.7 Total Bilirubin 0.4 0.5 Aspartate Amino Transf 13 11 (AST/SGOT) Alanine Aminotransferase 15 13 (ALT/SGPT) Alkaline Phosphatase 84 77 Total Creatine Kinase 33 Troponin I 0.03 B-Type Natriuretic Peptide 2109 2187 Total Protein 6.0 5.2 Albumin 2.4 2.1 Lipase 383 Urine Color COLORLESS Urine Turbidity CLEAR Urine pH 6.5 Urine Specific [place] 1.006 Urine Protein 100 Urine Glucose (UA) NEG Urine Ketones NEG Urine Occult Blood NEG Urine Nitrite NEG Urine Bilirubin NEG Urine Urobilinogen LESS THAN 2.0 Urine Leukocyte Esterase NEG Urine RBC 2 Urine Squamous Epithelial 1 Cells Microscopic Urinalysis Comment CULT NOT INDICATED Urine Opiates Screen NEG Urine Barbiturates Screen NEG Urine Amphetamines Screen NEG Urine Benzodiazepines Screen NEG Urine Cocaine Screen NEG Urine Cannabinoids Screen POS Result Diagram: 12/26/16 0535 12/26/16 0535 Imaging Last Impressions Chest X-Ray 12/25/162016 Signed Impressions: Service Date/Time: Sunday, December 25, 2016 20:30 - CONCLUSION: No acute cardiopulmonary disease. Stable, compensated mild cardiomegaly. Josef Rubin MD Assessment and Plan Assessment and Plan 26 year-old female with CHF (EF 15%), AICD, and CKD admitted to observation 12/25 for CHF exacerbation. anticipate D/C home in next day or so at most as she is already improved since admission Problem List: (1) Acute on chronic systolic (congestive) heart failure Status: Acute Plan: Severe cardiomyopathy with EF 10-20% (ECHO 11/2016) and AICD presents with SOB secondary to CHF exacerbation. Differential: medication non-compliance vs increased fluid intake vs increased dietary salt consumption vs [id number] CKD (UTI vs metabolic) vs arrhythmia vs sepsis Pt reports compliance with home Bumex with no changes in fluid intake or acute illness (apart from mild URI symptoms lingering for weeks). [employer]aker [employer] is Dr. Cardoso. Also sees Boilermaker Ship at [facility] working on potential heart transplant. -was mildly fluid overloaded with BNP 2109 on admission, but reassuring CXR ( costophrenic angles visible b/l, no change from prev compensated mild cardiomegaly, no acute pulmonary disease) -Consulted cardiology, Dr. Cardoso -Appreciate recommendations regarding medication titration and management discussed with pt daily weights and that she could potentially titrate her diuretics to her weights. she has no scale at home but says her mother will buy her one -Continue home carvedilol 12.5mg PO BID -Continue home Entresto 97-103 1 tab PO daily -ACS rule out -Troponin, CPK x1 negative -EKG: Sinus tachycardia (108) initially. No interval changes. No axis deviation. No ST-elevations or depressions. Left ventricular hypertrophy. -Will not continue to trend -Diuresis -S/p Lasix 40mg IV x1 in ED -Give additional Lasix 40mg IV x1 -Lasix 40mg IV BID while inpatient -Continue home Bumex 3mg PO BID, can consider adding zaroxolyn or other meds if needed but she appears to be improved even since yesterday -Rule out potential causes -Renal function actually improved from baseline CKD (Bun/Cr 34/2.1, baseline Cr 2.5-3.0) -CBC, electrolytes, glucose within normal limits -U/A pending -UDS pending -Blood cultures (12/25) x2 pending -Supportive Care -Repeat CBC, CMP, BNP in AM -Continue home KCl 10mEq PO daily, follow K in AM -Vitals qh4, cardiac monitoring, pulse oximetry, oxygen support for saturation 89%+ -Renal diet, OOB ad tana (2) Anxiety Status: Acute Plan: -Continue home Xanax 0.5 q6h PRN anxiety (3) Diabetes type 2, controlled Status: Chronic Plan: Well-controlled, reported home sugars 90-120 -Hold home insulin -Accu-Cheks achs + low SSI (4) Chronic pancreatitis Status: Chronic Plan: Patient reported. Diagnosis two years ago. -Lipase ordered- within normal limits -Continue home Ondansetron ODT 4mg PRN nausea/vomiting -Recommend outpatient follow-up, needs to establish with GI as outpatient (5) Chronic lower back pain Status: Chronic Plan: -Hold home Dilaudid 4mg PO q6h as patient does not have a primary doctor managing this medication (was prescribed x1 at discharge two months ago) -After patient called for pain medication, added Dilaudid 2mg PO q8h PRN pain 5- 10mg -Follow up outpatient for pain management (6) Nutrition, metabolism, and development symptoms Status: Acute Plan: Fluids: Per PO, dietary restrict <1L/day Electrolytes: monitor and replete PRN, continue home 10mEq KCL/day Nutrition: Renal diet, as rare home insulin use, will not make carb restricted at present DVT prophylaxis: Heparin 5000 units SQ q8h, no SCDs secondary to c/o leg cramping GI prophylaxis: not indicated Problem Qualifiers (1) Diabetes type 2, controlled: Qualified Code: E11.8 - Controlled diabetes mellitus type 2 with complications , unspecified 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
[2016-12-26] MEDS: ALPRAZolam 0.5 MG TAB PO PRN ×2 (11:09→23:00)
--- NOTE | 2016-12-26 13:37 | MB ---
cc: JIAN IVY DO DATE OF CONSULTATION: 12/26/2016 REASON FOR CONSULTATION Acute on chronic systolic heart failure. HISTORY OF PRESENT ILLNESS Trupti Jones is a 26-year-old female who presents to [facility] on December 25, 2016 due to concern for fluid overload state. She states that over the past few days she has been more short of breath. She does have chronic dyspnea but feels that this was getting worse. She recently saw her sales product specialist at [facility] who increased her Bumex. Her shortness of breath is increased by laying flat per the patient. She has also noticed some swelling in her abdomen and legs over the past few days. She does not weigh herself at home but did say that her mom was getting her a scale today. She tries to restrict her fluids and also watches her salt intake. She denies chest pain. She states that she has been taking her home Bumex dose recently which was just increased to 3 mg b.i.d. In seeing her she states that her breathing is somewhat better after diuretics. She is currently laying flat without significant shortness of breath. PAST MEDICAL HISTORY 1. cardiomyopathy, ejection fraction 15-20% by echocardiogram (November 2016)). 2. Chronic systolic heart failure, [place] [employer] stage III-IV, AHA/ACC C. 3. Chronic kidney disease most likely due to cardiorenal syndrome. 4. Type 2 diabetes mellitus. 5. Chronic low back pain. 6. Chronic pancreatitis. PAST SURGICAL HISTORY 1. AICD placed August 2013 with removal due to infection November 2014 and replacement. 2. Tubal ligation. 3. Cholecystectomy. 4. . 5. Tonsillectomy. ALLERGIES TORADOL. MEDICATIONS 1. Bumex, recently increased to 3 mg b.i.d. 2. Entresto 97/103 daily. 3. Zofran 4 mg every 6 hours as needed. 4. Xanax 0.5 mg every 12 hours as needed for anxiety. 5. Coreg 12.5 mg b.i.d. 6. NovoLog sliding scale insulin. 7. Dilaudid 4 mg every six hours as needed for pain. 8. Potassium 10 mEq daily. FAMILY HISTORY Mother has rheumatoid arthritis and hypertension. Father had a history of pancreatitis. Denies premature coronary artery disease or sudden cardiac within the family. SOCIAL HISTORY The patient lives with her mother and her daughter. She previously smoked half a pack a day but quit in 2012. Denies alcohol. States that she previously smoked marijuana occasionally but supposedly stopped in October 2016. REVIEW OF SYSTEMS 14 systems were reviewed including osteopathic with pertinent positives and negatives as above, otherwise negative. PHYSICAL EXAMINATION VITAL SIGNS: Temperature 98.6, heart rate 84, blood pressure 131/87, respirations 17, pulse ox 94% on room air. GENERAL: In general the patient appears well in no acute distress, alert, awake and oriented x3. Extraocular muscles intact. Mucous membranes are moist. NECK: Supple. No JVD at 45 degrees. No carotid bruits heard bilaterally. Carotid upstroke is brisk in nature. HEART: Regular rate and rhythm. Positive first and second heart sounds with no murmurs, gallops or rubs. LUNGS: Decreased breath sounds at bilateral bases. Minimal rales noted at the bases but otherwise no rhonchi. ABDOMEN: Soft, nontender, nondistended. No organomegaly noted. EXTREMITIES: 1+ pitting edema to the mid oliver. No clubbing or cyanosis. NEUROLOGIC: No focal deficits. SKIN: Warm, dry and intact. MUSCULOSKELETAL: Osteopathically no kyphoscoliosis, lordosis or paraspinal tender points. LABORATORY Hemoglobin 10.2, hematocrit 30.4, platelets 130. Potassium 4.3, BUN 35, creatinine 2.08. Troponin 0.03. BNP 2187. Toxicology positive for cannabis. ELECTROCARDIOGRAM Electrocardiogram ((December 25, 2016 at 2015): Sinus tachycardia, LVH with secondary ST-T wave changes. No significant change from December 09, 2016. IMPRESSION 1. Acute on chronic systolic heart failure. 2. cardiomyopathy with a known ejection fraction of 15-20% by echocardiogram (November 2016), status post AICD placement. 3. Anxiety. 4. Type 2 diabetes mellitus. 5. Chronic pancreatitis. 6. Chronic low back pain. RECOMMENDATIONS 1. Ms. Jones appears to be in an acute exacerbation of her chronic congestive heart failure. Currently she is able to lay flat and speak in full sentences without shortness of breath. 2. Will continue to attempt to diurese her. 3. I did ask her to follow her weights at home to try to keep her from getting too fluid overloaded. 4. Upon discharge she will follow up with her sales product specialist at [facility] in [place] for consideration of potential heart transplant. 5. Will continue her on her home dose of Coreg and Entresto. 6. Further recommendations will be made based on the hospital course. Thank you for allowing me to see Trupti Jones. If there are any questions, please do not hesitate to call. Jian Ivy DO VGP/BT /12:43 PM /1:17 PM
--- NOTE | 2016-12-26 18:38 | EKG ---
Date Performed: 12/25/2016 Time Performed: 20:15:33 PTAGE: 26 years EKG: SINUS TACHYCARDIA LEFT VENTRICULAR HYPERTROPHY AND ST-T CHANGE ABNORMAL ECG PREVIOUS TRACING : 12/09/2016 19.53 DOCTOR: Reynaldo Parker Interpretating Date/Time 12/26/2016 18:36:19
[2016-12-27] VITALS (7 sets, daily range): BP systolic 106–145; BP diastolic 53–89; PULSE 79–101; RESP 18–21; TEMP 97.2–98.7; O2SAT 95–98
[2016-12-27] MEDS: HEPARIN SODIUM - SQ 10,000 UNITS/ML VIAL SQ SCH ×4 (05:46→20:47)
[2016-12-27] MEDS: HYDROmorphone HCL 2 MG TAB PO PRN ×3 (05:46→20:48)
[2016-12-27] MEDS: INSULIN ASPART SUPPLEMENTAL SCALE SQ SCH ×4 (05:47→20:45)
[2016-12-27 05:51] LABS: BICARBONATE 29.4 MEQ/L (21.0-32.0); POTASSIUM 3.9 MEQ/L (3.5-5.1)
[2016-12-27] MEDS: SACUBITRIL/VALSARTAN 97 MG-103 MG TAB PO SCH (09:10)
[2016-12-27] MEDS: BUMETANIDE 1 MG TAB PO SCH ×2 (09:10→18:25)
[2016-12-27] MEDS: CARVEDILOL 12.5 MG TAB PO SCH ×2 (09:10→20:46)
[2016-12-27] MEDS: POTASSIUM CHLORIDE 10 MEQ CONTROLLED RELEASE TAB PO SCH (09:10)
[2016-12-27] MEDS: FUROSEMIDE 40 MG/4 ML VIAL IV PUSH SCH ×2 (09:11→18:25)
[2016-12-27] MEDS: SODIUM CHLORIDE 0.9% FLUSH 5 ML FLUSH FLUSH SCH ×2 (09:11→20:47)
[2016-12-27] MEDS: ALPRAZolam 0.5 MG TAB PO PRN (11:18)
--- NOTE | 2016-12-27 12:13 | HHI.FPPN ---
Subjective Remarks Patient seen and examined this morning. No acute events overnight with VSS. She still complains of lower back pain stating her pain medication only lasts 4-5 hours and she can only receive it currently every 8 hours. Otherwise she has no complaints and denies and fevers, chills, SOB, chest pain, NVD, and calf tenderness. (Bryan Herr MD R1) Objective Vitals Vital Signs Date Time Temp Pulse Resp B/P Pulse Ox O2 Delivery O2 Flow Rate FiO2 12/27/16 11:47 88 18 128/80 95 12/27/16 08:22 97.2 80 18 115/80 95 12/27/16 03:48 97.6 79 20 106/53 95 12/27/16 00:00 84 12/26/16 23:31 97.6 88 20 117/71 95 12/26/16 19:35 98.0 90 20 118/78 95 12/26/16 16:49 98.6 85 18 123/77 98 (Bryan Herr MD R1) Result Diagram: 12/26/16 0535 12/27/16 0456 Objective Remarks GEN: Obese female lying in bed in NAD. SKIN: Warm and dry no rashes, ecchymoses. Back with acne. CV: RRR with no MGR. RESP: CTAB with no CRW. GI: Soft, nondistended, nontender with +BS. No masses appreciated. NEURO: AAOx3. Normal speech. (Bryan Herr MD R1) A/P Assessment and Plan 26 year-old female with CHF (EF 15%), AICD, and CKD admitted on 12/25/16 for CHF exacerbation. Discharge Planning Pending Cardiology recommendations. DW: Dr. Ash (Bryan Herr MD R1) Attending Attestation Patient seen and examined. Case reviewed and discussed with the resident team. Agree with plan of care as discussed with me and documented in the resident note. (Caryn Ash MD) Problem List: (1) Acute on chronic systolic (congestive) heart failure Status: Acute Plan: Severe cardiomyopathy with EF 10-20% (ECHO 11/2016) and AICD presents with SOB secondary to CHF exacerbation. Differential: medication non-compliance vs increased fluid intake vs increased dietary salt consumption vs [id number] CKD (UTI vs metabolic) vs arrhythmia vs sepsis Pt reports compliance with home Bumex with no changes in fluid intake or acute illness (apart from mild URI symptoms lingering for weeks). Vat Packer is Dr. Cardoso. Also sees Vat Packer at [facility] working on potential heart transplant. -Was mildly fluid overloaded with BNP 2109 on admission, but reassuring CXR ( costophrenic angles visible b/l, no change from previous compensated mild cardiomegaly, no acute pulmonary disease) -Consulted cardiology, Dr. Talamantes -Appreciate recommendations regarding medication titration and management -Patient to begin weighing her self daily to assist with diuresis. -Continue home Carvedilol 12.5mg PO BID -Continue home Entresto 97-103 1 tab PO daily -ACS rule out -Troponin, CPK x1 negative -EKG: Sinus tachycardia (108) initially. No interval changes. No axis deviation. No ST-elevations or depressions. Left ventricular hypertrophy. -Diuresis -Lasix 40mg IV BID while inpatient -Continue home Bumex 3mg PO BID, can consider adding zaroxolyn or other meds if needed but she appears to be improved since yesterday -Supportive Care -Repeat BMP in AM -Continue home KCl 10mEq PO daily, follow K in AM -Vitals qh4, cardiac monitoring, pulse oximetry, oxygen support for saturation 89%+ -Renal diet, OOB ad tana (2) Anxiety Status: Acute Plan: -Continue home Xanax 0.5 q6h PRN anxiety (3) Diabetes type 2, controlled Status: Chronic Plan: Well-controlled, reported home sugars 90-120 -Hold home insulin -Accu-Cheks achs + low SSI (4) Chronic pancreatitis Status: Chronic Plan: Patient reported. Diagnosis two years ago. -Lipase ordered- within normal limits -Continue home Ondansetron ODT 4mg PRN nausea/vomiting -Recommend outpatient follow-up, needs to establish with GI as outpatient (5) Chronic lower back pain Status: Chronic Plan: -Increased Dilaudid to 4mg Q8H PRN for pain 5-10 -Follow up outpatient for pain management, discussed thoroughly with patient the need for her to follow up as an outpatient (6) Nutrition, metabolism, and development symptoms Status: Acute Plan: Fluids: Dietary restrict <1L/day Electrolytes: monitor and replete PRN, continue home 10mEq KCL/day Nutrition: Renal diet DVT prophylaxis: Heparin 5000 units SQ q8h, no SCDs secondary to c/o leg cramping GI prophylaxis: Not indicated (Bryan Herr MD R1) Problem Qualifiers (1) Diabetes type 2, controlled: Qualified Code: E11.8 - Controlled diabetes mellitus type 2 with complications , unspecified 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
[2016-12-28 00:38] VITALS: BP 115/86; PULSE 88; RESP 18; TEMP 98.4; O2SAT 98
[2016-12-28] MEDS: ALPRAZolam 0.5 MG TAB PO PRN (00:42)
[2016-12-28] MEDS: HEPARIN SODIUM - SQ 10,000 UNITS/ML VIAL SQ SCH (04:42)
[2016-12-28] MEDS: HYDROmorphone HCL 2 MG TAB PO PRN (04:42)
[2016-12-28 04:50] VITALS: BP 125/74; PULSE 86; RESP 21; TEMP 98.8; O2SAT 98
[2016-12-28] MEDS: INSULIN ASPART SUPPLEMENTAL SCALE SQ SCH (07:00)
[2016-12-28 08:05] LABS: BICARBONATE 29.5 MEQ/L (21.0-32.0); POTASSIUM 3.6 MEQ/L (3.5-5.1)
[2016-12-28 08:09] VITALS: PULSE 77
[2016-12-28] MEDS ORDERED: DILA4TAB2 PO (08:18)
[2016-12-28] MEDS ORDERED: ZOFR4TAB3 SL (08:18)
[2016-12-28] MEDS ORDERED: BUME1TAB PO (08:18)
--- NOTE | 2016-12-28 08:19 | HHI.DCPOC ---
Discharge Care Plan Diagnosis: (1) Acute on chronic systolic (congestive) heart failure (2) Chronic lower back pain Goals to Promote Your Health * To prevent worsening of your condition and complications * To maintain your health at the optimal level Directions to Meet Your Goals Take your medications as prescribed Follow your dietary instruction Follow activity as directed Keep your appointments as scheduled Take your immunizations and boosters as scheduled If your symptoms worsen call your PCP, if no PCP go to Urgent Care Center or Emergency Room Smoking is Dangerous to Your Health. Avoid second hand smoke Call the 24-hour hour crisis hotline for domestic abuse at Tatum Buck MD R2 Dec 28, 2016 08:19
[2016-12-28 08:22] VITALS: BP_SYST 143; BP_DIAS 143; BP_DIAS 82; PULSE 80; RESP 18; TEMP 96.8; O2SAT 95
[2016-12-28] MEDS: BUMETANIDE 1 MG TAB PO SCH (08:48)
[2016-12-28] MEDS: FUROSEMIDE 40 MG/4 ML VIAL IV PUSH SCH (08:48)
[2016-12-28] MEDS: SACUBITRIL/VALSARTAN 97 MG-103 MG TAB PO SCH (08:49)
[2016-12-28] MEDS: SODIUM CHLORIDE 0.9% FLUSH 5 ML FLUSH FLUSH SCH (08:49)
[2016-12-28] MEDS: CARVEDILOL 12.5 MG TAB PO SCH (08:49)
[2016-12-28] MEDS: POTASSIUM CHLORIDE 10 MEQ CONTROLLED RELEASE TAB PO SCH (08:49)
[2016-12-28 09:07] VITALS: O2SAT 98
--- NOTE | 2016-12-28 09:28 | HHI.FPPN ---
Subjective Remarks No acute events overnight. This morning patient states that she feels well and is ready to go. Continues to have chronic lower back pain but increase in medication dose has helped. Denies any chest pain, SOB. Reports that [facility] has set her up with a pain management clinic as well as follow-up with her supervisor liquefaction for next Saturday. (Tatum Buck MD R2) Objective Vitals Vital Signs Date Time Temp Pulse Resp B/P Pulse Ox O2 Delivery O2 Flow Rate FiO2 12/28/16 09:07 98 21 12/28/16 08:22 96.8 80 18 143/82 95 12/28/16 08:09 77 12/28/16 04:50 98.8 86 21 125/74 98 12/28/16 00:38 98.4 88 18 115/86 98 12/27/16 21:48 12 12/27/16 20:39 98 21 12/27/16 20:10 98.7 101 21 145/89 97 12/27/16 15:44 94 18 118/85 95 12/27/16 11:47 88 18 128/80 95 I/O 12/27/16 12/27/16 12/27/16 12/28/16 12/28/16 12/28/16 07:00 15:00 23:00 07:00 15:00 23:00 Intake Total 960 ml Balance 960 ml Intake Oral 960 ml (Tatum Buck MD R2) Result Diagram: 12/26/16 0535 12/28/16 0600 Objective Remarks GEN: Obese female lying in bed in NAD. SKIN: Warm and dry no rashes, ecchymoses. Back with acne. CV: RRR with no MGR. RESP: CTAB with no CRW. MSK: No lower extremity edema. NEURO: AAOx3. Normal speech. (Tatum Buck MD R2) A/P Assessment and Plan 26 year-old female with CHF (EF 15%), AICD, and CKD admitted on 12/25/16 for CHF exacerbation. Discharge Planning Today DW: Dr. Ash (Tatum Buck MD R2) Attending Attestation Patient seen and examined. Case reviewed and discussed with the resident team. Agree with plan of care as discussed with me and documented in the resident note. (Caryn Ash MD) Problem List: (1) Acute on chronic systolic (congestive) heart failure Status: Acute Plan: Severe cardiomyopathy with EF 10-20% (ECHO 11/2016) and AICD presents with SOB secondary to CHF exacerbation. Pt reports compliance with home Bumex with no changes in fluid intake or acute illness (apart from mild URI symptoms lingering for weeks). Building Equipment Operator is Dr. Cardoso. Also sees Building Equipment Operator at [facility] working on potential heart transplant. -Was mildly fluid overloaded with BNP 2109 on admission, but reassuring CXR ( costophrenic angles visible b/l, no change from previous compensated mild cardiomegaly, no acute pulmonary disease) -Consulted cardiology, Dr. Talamantes: Appreciate recommendations * Agree with diuresis -Counseled about daily weights -Continue home Carvedilol 12.5mg PO BID -Continue home Entresto 97-103 1 tab PO daily -ACS negative -Diuresis -Lasix 40mg IV BID while inpatient -Continue home Bumex 3mg PO BID (2) Anxiety Status: Acute Plan: -Continue home Xanax 0.5 q6h PRN anxiety (3) Diabetes type 2, controlled Status: Chronic Plan: Well-controlled, reported home sugars 90-120 -Hold home insulin -Accu-Cheks achs + low SSI (4) Chronic lower back pain Status: Chronic Plan: -Increased Dilaudid to 4mg Q8H PRN for pain 5-10 -Follow up outpatient for pain management, discussed thoroughly with patient the need for her to follow up as an outpatient (5) Nutrition, metabolism, and development symptoms Status: Acute Plan: Fluids: Dietary restrict <1L/day Electrolytes: monitor and replete PRN, continue home 10mEq KCL/day Nutrition: Renal diet DVT prophylaxis: Heparin 5000 units SQ q8h GI prophylaxis: Not indicated (Tatum Buck MD R2) Problem Qualifiers (1) Diabetes type 2, controlled: Qualified Code: E11.8 - Controlled diabetes mellitus type 2 with complications , unspecified 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
[2016-12-28] MEDS ORDERED: POTASSIUM CHLORIDE 10 MEQ CONTROLLED RELEASE TAB PO ONE (09:30)
--- NOTE | 2016-12-28 15:59 | HHI.DS ---
Discharge Summary Admission Date Dec 26, 2016 at 15:56 Discharge Date: Dec 28, 2016 Admitting Diagnosis CHF exacerbation (1) Acute on chronic systolic (congestive) heart failure Plan: Severe cardiomyopathy with EF 10-20% (ECHO 11/2016) and AICD presents with SOB secondary to CHF exacerbation. Pt reports compliance with home Bumex with no changes in fluid intake or acute illness (apart from mild URI symptoms lingering for weeks). Pantry Cook is Dr. Cardoso. Also sees Pantry Cook at [facility] working on potential heart transplant. -Was mildly fluid overloaded with BNP 2109 on admission, but reassuring CXR ( costophrenic angles visible b/l, no change from previous compensated mild cardiomegaly, no acute pulmonary disease) -Consulted cardiology, Dr. Talamantes: Appreciate recommendations * Agree with diuresis -Counseled about daily weights -Continue home Carvedilol 12.5mg PO BID -Continue home Entresto 97-103 1 tab PO daily -ACS negative -Diuresis -Lasix 40mg IV BID while inpatient -Continue home Bumex 3mg PO BID (2) Anxiety Plan: -Continue home Xanax 0.5 q6h PRN anxiety (3) Diabetes type 2, controlled Plan: Well-controlled, reported home sugars 90-120 -Hold home insulin -Accu-Cheks achs + low SSI (4) Chronic lower back pain Plan: -Increased Dilaudid to 4mg Q8H PRN for pain 5-10 -Follow up outpatient for pain management, discussed thoroughly with patient the need for her to follow up as an outpatient (5) Nutrition, metabolism, and development symptoms Plan: Fluids: Dietary restrict <1L/day Electrolytes: monitor and replete PRN, continue home 10mEq KCL/day Nutrition: Renal diet DVT prophylaxis: Heparin 5000 units SQ q8h GI prophylaxis: Not indicated [facility] Brief History Ms Jones is a 26 year-old female with cardiomyopathy (EF 15%), AICD, and CKD presented to the ED with shortness of breath x2 days and concern for fluid overload. Her chronic dyspnea worsened since the day before admission- feels like she is "suffocating", worse by laying flat, and concerned that woke up short of breath last night. Has also noticed swelling of abdomen, vagina, and legs over the past several days. Does not weigh self, but pants fit tighter. No change in oral liquids (restricts to <1L/day), but decreased UOP. Denies chest pain. Feels this is similar to her prior episodes of fluid overload "when my Bumex stops working". Reports compliance with home Bumex 2mg BID. Actually had increased dose independently to 3mg BID several days ago. Follows with automobile upholsterer at [facility] for potential heart transplant who she saw this morning. He told her to continue Bumex at 3mg BID. Dr. Cardoso is her automobile upholsterer at [place]. Of note, patient was recently hospitalized 12/09/16-12/12/16 for CHF exacerbation and sepsis. Feels URI symptoms (rhinorrhea and wet cough with clear-yellow sputum) have persisted since discharge, though denies fevers or change in appetite. Also reporting severe chronic lumbar low back pain, no longer managed with Dilaudid since she ran out. Given #50 pills on discharge three weeks ago, but has not established elsewhere yet for pain management. She is in comparison to the last time I saw her much better with her overall fluid status. She has diuresed wonderfully compared to some months ago and does continue to have some edema but had anasarca in the past. She does want more pain meds at this time for her chronic pain in her back. CBC/BMP: 12/26/16 0535 12/28/16 0600 Significant Findings Laboratory Tests Test 12/25/16 12/26/16 12/26/16 12/27/16 20:30 00:55 05:35 04:56 Neutrophils (%) (Auto) 70.9 % (16.0-70.0) Chloride Level 109 MEQ/L 109 MEQ/L (98-107) (98-107) Blood Urea Nitrogen 35 MG/DL (7-18) 35 MG/DL (7-18) 35 MG/DL (7-18) Creatinine 2.14 MG/DL 2.08 MG/DL 2.53 MG/DL (0.50-1.00) (0.50-1.00) (0.50-1.00) Estimat Glomerular Filtration 28 ML/MIN (>89) 29 ML/MIN (>89) 23 ML/MIN (>89) Rate Calcium Level 8.3 MG/DL 7.9 MG/DL (8.5-10.1) (8.5-10.1) Aspartate Amino Transf 13 U/L (15-37) 11 U/L (15-37) (AST/SGOT) B-Type Natriuretic Peptide 2109 PG/ML 2187 PG/ML (0-100) (0-100) Total Protein 6.0 GM/DL 5.2 GM/DL (6.4-8.2) (6.4-8.2) Albumin 2.4 GM/DL 2.1 GM/DL (3.4-5.0) (3.4-5.0) Urine Protein 100 mg/dL (NEG-TRACE) Urine Cannabinoids Screen POS (NEG) Red Blood Count 3.53 MIL/MM3 (4.00-5.30) Hemoglobin 10.2 GM/DL (11.6-15.3) Hematocrit 30.4 % (35.0-46.0) Platelet Count 130 TH/MM3 (150-450) Random Glucose 144 MG/DL (74-106) Test 12/28/16 06:00 Blood Urea Nitrogen 34 MG/DL (7-18) Creatinine 2.64 MG/DL (0.50-1.00) Estimat Glomerular Filtration 22 ML/MIN (>89) Rate Random Glucose 132 MG/DL (74-106) Calcium Level 7.5 MG/DL (8.5-10.1) Imaging Last Impressions Chest X-Ray 12/25/162016 Signed Impressions: Service Date/Time: Sunday, December 25, 2016 20:30 - CONCLUSION: No acute cardiopulmonary disease. Stable, compensated mild cardiomegaly. Josef Rubin MD PE at Discharge GEN: Obese female lying in bed in NAD. SKIN: Warm and dry no rashes, ecchymoses. Back with acne. CV: RRR with no MGR. RESP: CTAB with no CRW. MSK: No lower extremity edema. NEURO: AAOx3. Normal speech. Hospital Course Patient is a 26-year-old female with a history significant for cardiomyopathy EF (10-20%) with AICD. Admitted for CHF exacerbation that was treated with diuresis. Patient responded well to IV Lasix 40 mg BID in addition to her home medications. Patient also had chronic pain which was managed with PO Dilaudid. Patient was thoroughly counseled about limiting fluid and salt intake as well as daily weights. Also counseled about the importance of outpatient pain management. Patient responded well to treatment and was discharged in stable condition. Pt Condition on Discharge: Stable Discharge Disposition: Discharge Home Discharge Instructions DIET: Follow Instructions for: Heart Healthy Diet Activities you can perform: Regular-No Restrictions Follow up Referrals: Appointment for Follow Up - 1 Week with Lucio Andrade DO Cardiology - 1 Week with Leona Cardoso MD New Medications: Bumetanide (Bumetanide) 1 Mg Tab 3 MG PO BID@18 #180 TAB Changed Medications: Hydromorphone (Dilaudid) 4 Mg Tab 4 MG PO Q8HR PRN PAIN #40 TAB (Changed from: Q6HR; 20) Continued Medications: Alprazolam (Xanax) 0.5 Mg Tab 0.5 MG PO Q12HR PRN Anxiety #20 TAB Carvedilol (Carvedilol) 12.5 Mg Tab 12.5 MG PO BID #60 Ref 0 TAB Insulin Aspart Inj (Novolog Inj) 1,000 Unit/10 Ml Vial 1-9 UNITS SQ ACHS Max dose at bedtime:( )units; sugars less than 70,(0)units; sugars 150-199,(1) unit; sugars 200-249,(3) units; sugars 250-299,(5) units; sugars 300-349,(7) units; sugars greater than 349,(9) units Blood Sugar Management #10 Ref 0 ML Ondansetron Odt (Zofran Odt) 4 Mg Tab 4 MG SL Q6HR PRN Nausea/Vomiting #30 Ref 0 TAB (This prescription has been renewed) Potassium Chloride ER (K-Tab) 10 Meq Tab 10 MEQ PO DAILY Electrolyte Replacement #30 Ref 0 TAB Sacubitril-Valsartan (Entresto) 97-103 Mg Tab 1 TAB PO DAILY Heart Failure #30 Ref 6 TAB Discontinued Medications: Bumetanide (Bumetanide) 1 Mg Tab 1 MG PO BID #60 TAB Hydromorphone (Dilaudid) 4 Mg Tab 4 MG PO Q6HR #50 Ref 0 TAB Tatum Buck MD R2 Dec 28, 2016 15:58
== END 2016-12-28 10:08 | disposition home or self-care (01) | DRG 292 ==
LOC: NEPE 20:10 → NEDA 21:43 → NEPHCDU 23:31 → OBSVTOIN 12-26 15:56
PROVIDERS: ADMIT Family Medicine; ATTEND Family Medicine
DX: I50.23 Acute on chronic systolic (congestive) heart failure (principal); K86.1 Other chronic pancreatitis; E11.22 Type 2 diabetes mellitus with diabetic chronic kidney disease; I42.9 Cardiomyopathy, unspecified; I13.0 Hypertensive heart and chronic kidney disease with heart failure and stage 1 through stage 4 chronic kidney disease, or unspecified chronic kidney disease; N18.9 Chronic kidney disease, unspecified; M54.40 Lumbago with sciatica, unspecified side; Z95.810 Presence of automatic (implantable) cardiac defibrillator; Z79.4 Long term (current) use of insulin; Z87.891 Personal history of nicotine dependence; G89.29 Other chronic pain; F41.9 Anxiety disorder, unspecified; E78.00 Pure hypercholesterolemia, unspecified
CPT/HCPCS: 71010; 76937; 80048; 80053; 80307; 81001; 82550; 82728; 82948; 83690; 83735; 83880; 84484; 85025; 93005; 96374; G0378; J1644; J1940; J2270; J2405

== ENCOUNTER 2017-01-14 11:55 | Emergency (ER) | payer MEDICARE, MEDICAID ==
[~2017-01-14] VITALS: Ht 160 cm; Wt 87.0 kg
[2017-01-14 11:59] VITALS: BP 119/85; PULSE 92; RESP 17; TEMP 98.8; O2SAT 98
[2017-01-14] MEDS ORDERED: BUME1TAB28 PO (12:29)
[2017-01-14] MEDS ORDERED: SACU1TAB PO (12:29)
[2017-01-14] MEDS ORDERED: HYDR4TAB PO (12:29)
--- NOTE | 2017-01-14 12:55 | PD ---
HPI Chief Complaint: Edema Time Seen by Provider: 12:22 Travel History International Travel<30 days: No Contact w/Intl Traveler<30days: No Traveled to known affect area: No History of Present Illness HPI Is a 26-year-old young woman with a history of severe peripartum cardiomyopathy with an EF of 15% who presents to the emergency department complaining of feeling like her legs are more swollen, she'll increased trouble breathing, ongoing for the past 2-3 days. She increased her Bumex from 3 mg twice a day before milligrams twice a day. She states despite that she's had increasing orthopnea. Review systems positive for little bit of increased cough, nausea and possible subjective chills. She also she has a lot of pain from swelling and edema in her groin. History Past Medical History Narrative Medical Cardiomyopathy, EF 15%, status post AICD Diabetes Hypertension and chronic pancreatitis, chronic back pain Chronic kidney disease, creatinine baseline 2.5-3 Tetanus Vaccination: < 5 Years LMP: unknown, irregular : 1 Para: 1 Social History Alcohol Use: No Tobacco Use: No (quit 2012) Allergies-Medications (Allergen,Severity, Reaction): Coded Allergies: Toradol (Verified Adverse Reaction, Mild, SHAKING, 01/14/17) Reported Meds & Prescriptions Reported Meds & Active Scripts Active Xanax (Alprazolam) 0.5 Mg Tab 0.5 Mg PO Q12HR PRN Novolog Inj (Insulin Aspart) 1,000 Unit/10 Ml Vial 1-9 Units SQ ACHS Max dose at bedtime:( )units; sugars less than 70,(0)units; sugars 150-199,(1) unit; sugars 200-249,(3) units; sugars 250-299,(5) units; sugars 300-349,(7) units; sugars greater than 349,(9) units Reported Bumex (Bumetanide) 2 Mg Tab 4 Mg PO BID Entresto (Sacubitril-Valsartan) 24-26 Mg Tab 1 Tab PO BID Hydromorphone (Hydromorphone HCl) 4 Mg Tab 4 Mg PO Q6H PRN Carvedilol 12.5 Mg Tab 18.75 Mg PO BID Review of Systems Except as stated in HPI: all other systems reviewed are Neg Physical Exam Narrative GENERAL: Well-appearing 26 year-old woman, no acute distress. SKIN: Warm and dry. HEAD: Atraumatic. Normocephalic. NECK: Trachea midline. No JVD. CARDIOVASCULAR: Regular rate and rhythm. No murmur appreciated. RESPIRATORY: No accessory muscle use. Clear to auscultation. Breath sounds equal bilaterally. GASTROINTESTINAL: Abdomen soft, non-tender, nondistended. Hepatic and splenic margins not palpable. MUSCULOSKELETAL: No obvious deformities. No appreciable edema. She is some tenderness. NEUROLOGICAL: Awake and alert. No obvious cranial nerve deficits. Motor grossly within normal limits. Normal speech. PSYCHIATRIC: Appropriate mood and affect; insight and judgment normal. Data Data Last Documented VS Vital Signs Date Time Temp Pulse Resp B/P Pulse Ox O2 Delivery O2 Flow Rate FiO2 01/14/17 14:00 16 01/14/17 13:59 85 111/76 97 Room Air 01/14/17 11:59 98.8 Orders Complete Blood Count With Diff (01/14/17 12:47) Comprehensive Metabolic Panel (01/14/17 12:47) B-Type Natriuretic Peptide (01/14/17 12:47) Iv Access Insert/Monitor (01/14/17 12:47) Electrocardiogram (01/14/17 12:47) Ecg Monitoring (01/14/17 12:47) Oximetry (01/14/17 12:47) Oxygen Administration (01/14/17 12:47) Chest, Single Ap (01/14/17 12:47) Sodium Chloride 0.9% Flush (Ns Flush) (01/14/17 13:00) Ondansetron Inj (Zofran Inj) (01/14/17 13:00) Bumetanide Inj (Bumex Inj) (01/14/17 13:00) Acetaminophen Inj (Ofirmev Inj) (01/14/17 13:00) Labs Laboratory Tests Test 01/14/17 13:00 White Blood Count 7.3 TH/MM3 Red Blood Count 3.82 MIL/MM3 Hemoglobin 10.8 GM/DL Hematocrit 33.3 % Mean Corpuscular Volume 87.2 FL Mean Corpuscular Hemoglobin 28.4 PG Mean Corpuscular Hemoglobin 32.5 % Concent Red Cell Distribution Width 15.0 % Platelet Count 188 TH/MM3 Mean Platelet Volume 9.6 FL Neutrophils (%) (Auto) 60.9 % Lymphocytes (%) (Auto) 30.8 % Monocytes (%) (Auto) 4.9 % Eosinophils (%) (Auto) 2.7 % Basophils (%) (Auto) 0.7 % Neutrophils # (Auto) 4.3 TH/MM3 Lymphocytes # (Auto) 2.2 TH/MM3 Monocytes # (Auto) 0.4 TH/MM3 Eosinophils # (Auto) 0.2 TH/MM3 Basophils # (Auto) 0.1 TH/MM3 CBC Comment DIFF FINAL Differential Comment Sodium Level 142 MEQ/L Potassium Level 4.9 MEQ/L Chloride Level 109 MEQ/L Carbon Dioxide Level 24.6 MEQ/L Anion Gap 8 MEQ/L Blood Urea Nitrogen 36 MG/DL Creatinine 2.30 MG/DL Estimat Glomerular Filtration 25 ML/MIN Rate Random Glucose 104 MG/DL Calcium Level 8.1 MG/DL Total Bilirubin 0.2 MG/DL Aspartate Amino Transf 33 U/L (AST/SGOT) Alanine Aminotransferase 67 U/L (ALT/SGPT) Alkaline Phosphatase 83 U/L B-Type Natriuretic Peptide 1706 PG/ML Total Protein 5.7 GM/DL Albumin 2.3 GM/DL [facility] Medical Decision Making Medical Screen Exam Complete: Yes Emergency Medical Condition: Yes Interpretation(s) My review of EKG: Normal sinus rhythm at a rate of 89, left 4 to axis, LVH with lateral T wave inversions, no definite evidence of acute ischemia. Chest x-ray: Cardiomegaly. No acute pulmonary disease. LABS: CBC remarkable for mild anemia. CMP creatinine 2.3 consistent with baseline BNP 1706, down from 2100 Differential Diagnosis Volume overload, edema, pleural effusions, PE, pain, other Narrative Course Medical decision making INITIAL: Is a 26-year-old woman presents emergent department concern for increased fluid retention. She looks well on exam. Don't see a lot of extra fluid on exam. Lungs sound clear. Review of her weight shows her weight today is 87 kg, when she was discharged from the hospital last she was 87.8 kg on December 12, and when she was last seen in the ED she was 86.4 kg. We'll check labs, x-ray, discuss with her brick paving checker. Diagnosis Primary Impression: Systolic CHF, acute on chronic Additional Instructions: Continue your increased dose of Bumex twice daily. Follow up with Dr. Jaane in the next one to 2 days. Return to the emergency department for any new or worsening symptoms. Med/Other Pt SpecificInfo: No Change to Meds Disposition: 01 DISCHARGE HOME Condition: Stable Ed Sifuentes MD Jan 14, 2017 12:55
[2017-01-14] MEDS ORDERED: BUMETANIDE INJ 1 MG/4 ML VIAL IV PUSH ONE (13:00)
[2017-01-14] MEDS ORDERED: ONDANSETRON HCL 4 MG/2 ML VIAL IV ONE (13:00)
[2017-01-14] MEDS ORDERED: SODIUM CHLORIDE 0.9% FLUSH 10 ML FLUSH IVF PRN (13:00)
[2017-01-14] MEDS ORDERED: ACETAMINOPHEN 1000 MG/100 ML VIAL IV ONE (13:00)
[2017-01-14 13:02] VITALS: RESP 16; O2SAT 100
[2017-01-14 13:04] VITALS: BP 121/72; PULSE 90; RESP 16; O2SAT 98
[2017-01-14 13:14] LABS: AUTOMATED NEUTROPHIL # 4.3 TH/MM3 (1.8-7.7); BASOPHIL # 0.1 TH/MM3 (0-0.2); BASOPHIL % 0.7 % (0.0-2.0); EOSINOPHIL # 0.2 TH/MM3 (0-0.4); EOSINOPHIL % 2.7 % (0.0-4.0); HEMATOCRIT 33.3 % (35.0-46.0); HEMO FLAGS DIFF FINAL; LYMPH % 30.8 % (9.0-44.0); LYMPHOCYTE # 2.2 TH/MM3 (1.0-4.8); MEAN CELL VOLUME 87.2 FL (80.0-100.0); MEAN CORPUSCULAR HEMOGLOBIN 28.4 PG (27.0-34.0); MEAN CORPUSCULAR HGB CONC 32.5 % (32.0-36.0); MONO % 4.9 % (0.0-8.0); NEUT % 60.9 % (16.0-70.0); PLATELET COUNT 188 TH/MM3 (150-450); RED BLOOD COUNT 3.82 MIL/MM3 (4.00-5.30); WHITE BLOOD COUNT 7.3 TH/MM3 (4.0-11.0)
--- NOTE | 2017-01-14 13:15 | RADHPO ---
EXAM DATE/TIME: 01/14/2017 13:02 [facility] COMPARISON: CHEST SINGLE AP, December 25, 2016, 20:30. INDICATIONS : Chest pain MEDICAL HISTORY : Congestive heart failure. Hypertension Cardiomyopathy SURGICAL HISTORY : Pacemaker. ENCOUNTER: Initial ACUITY: 1 day PAIN SCORE: 110 LOCATION: Bilateral chest FINDINGS: The cardiac silhouette is enlarged in transverse diameter. The lungs are free of acute parenchymal op acity. No effusions are identified. A defibrillator device is in place via a left sided approach. CONCLUSION: 1. Cardiomegaly. No acute pulmonary disease. Sonido Sanches MD on January 14, 2017 at 13:13 Board Certified Radiologist. This report was verified electronically.
[2017-01-14 13:20] LABS: CHLORIDE 109 MEQ/L (98-107); POTASSIUM 4.9 MEQ/L (3.5-5.1); SODIUM (NA) 142 MEQ/L (136-145)
[2017-01-14 13:24] LABS: ANION GAP 8 MEQ/L (5-15); BICARBONATE 24.6 MEQ/L (21.0-32.0); BLOOD UREA NITROGEN 36 MG/DL (7-18)
[2017-01-14 13:27] LABS: ALT (GPT) 67 U/L (10-53); AST (GOT) 33 U/L (15-37); GLOMERULAR FILTRATION RATE 25 ML/MIN (>89)
[2017-01-14 13:29] LABS: TOTAL BILIRUBIN ADULT 0.2 MG/DL (0.2-1.0)
[2017-01-14 13:30] LABS: ALKALINE PHOSPHATASE 83 U/L (45-117)
[2017-01-14 13:59] VITALS: BP 111/76; PULSE 85; RESP 16; O2SAT 97
[2017-01-14] MEDS ORDERED: MORPHINE SULFATE 4 MG/ML INJ IV PUSH ONE (14:45)
[2017-01-14 15:02] VITALS: BP 116/71; PULSE 89; RESP 16; O2SAT 98
--- NOTE | 2017-01-15 22:08 | EKG ---
Date Performed: 01/14/2017 Time Performed: 12:57:08 PTAGE: 26 years EKG: Sinus rhythm Left ventricular hypertrophy Lateral T wave changes are probably due to ventricular hypertrophy Sinc e previous tracing, no significant change noted Abnormal ECG PREVIOUS TRACING : 12/25/2016 20.15 DOCTOR: Idalia Bai Interpretating Date/Time 01/15/2017 22:06:51
== END 2017-01-14 15:40 | disposition home or self-care (01) ==
LOC: PHED 11:55
DX: I50.23 Acute on chronic systolic (congestive) heart failure (principal); I12.9 Hypertensive chronic kidney disease with stage 1 through stage 4 chronic kidney disease, or unspecified chronic kidney disease; E11.22 Type 2 diabetes mellitus with diabetic chronic kidney disease; N18.9 Chronic kidney disease, unspecified; Z79.4 Long term (current) use of insulin; Z79.899 Other long term (current) drug therapy; Z87.891 Personal history of nicotine dependence
CPT/HCPCS: 71010; 80053; 83880; 85025; 93005; 96374; 96375; 99284; J0131; J2270; J2405

== ENCOUNTER 2017-01-27 00:47 | Emergency (ER) | payer MEDICARE, MEDICAID ==
[~2017-01-27] VITALS: Ht 160 cm; Wt 85.5 kg
[~2017-01-27 00:47] MED LIST changes: -BUME1TAB PO; +BUME1TAB28 PO; -DILA4TAB2 PO; +HYDR4TAB PO; -K-TA10TA PO; +SACU1TAB PO; -SACU1TAB4 PO; -ZOFR4TAB3 SL
[2017-01-27 00:53] VITALS: BP 138/98; PULSE 92; RESP 20; TEMP 98.2; O2SAT 100
--- NOTE | 2017-01-27 01:07 | PD ---
HPI Chief Complaint: chest and belly pain Time Seen by Provider: 00:51 Travel History International Travel<30 days: No Contact w/Intl Traveler<30days: No History of Present Illness HPI to 27 year-old woman presents to the emergency department with a history of cardiomyopathy complaining of chest pain and belly pain trouble breathing and feeling like fluid is building up. She is a history of the same. She is here often for the same. She is on Bumex now. No other complaints. History Past Medical History Narrative Medical Cardiomyopathy, EF 15%, status post AICD Diabetes Hypertension and chronic pancreatitis, chronic back pain Chronic kidney disease, creatinine baseline 2.5-3 : 1 Para: 1 Social History Alcohol Use: No Tobacco Use: No (quit 2012) Allergies-Medications (Allergen,Severity, Reaction): Coded Allergies: Toradol (Verified Adverse Reaction, Mild, SHAKING, 01/27/17) Reported Meds & Prescriptions Reported Meds & Active Scripts Active Xanax (Alprazolam) 0.5 Mg Tab 0.5 Mg PO Q12HR PRN Novolog Inj (Insulin Aspart) 1,000 Unit/10 Ml Vial 1-9 Units SQ ACHS Max dose at bedtime:( )units; sugars less than 70,(0)units; sugars 150-199,(1) unit; sugars 200-249,(3) units; sugars 250-299,(5) units; sugars 300-349,(7) units; sugars greater than 349,(9) units Reported Bumex (Bumetanide) 2 Mg Tab 4 Mg PO BID Entresto (Sacubitril-Valsartan) 24-26 Mg Tab 1 Tab PO BID Hydromorphone (Hydromorphone HCl) 4 Mg Tab 4 Mg PO Q6H PRN Carvedilol 12.5 Mg Tab 18.75 Mg PO BID Review of Systems Except as stated in HPI: all other systems reviewed are Neg Physical Exam Narrative GENERAL: 19 year-old woman, she looks about the same as when I saw her last time. SKIN: Focused skin assessment warm/dry. HEAD: Atraumatic. Normocephalic. EYES: Pupils equal and round. No scleral icterus. No injection or drainage. ENT: No nasal bleeding or discharge. Mucous membranes pink and moist. NECK: Trachea midline. No JVD. CARDIOVASCULAR: Regular rate and rhythm. No murmur appreciated. RESPIRATORY: No accessory muscle use. Clear to auscultation. Breath sounds equal bilaterally. GASTROINTESTINAL: Abdomen is obese and soft. Mild diffuse tenderness. MUSCULOSKELETAL: No obvious deformities. No edema. NEUROLOGICAL: Awake and alert. No obvious cranial nerve deficits. Motor grossly within normal limits. Normal speech. Data Data Last Documented VS Vital Signs Date Time Temp Pulse Resp B/P Pulse Ox O2 Delivery O2 Flow Rate FiO2 01/27/17 00:53 98.2 92 20 138/98 100 Orders Complete Blood Count With Diff (01/27/17 01:04) Comprehensive Metabolic Panel (01/27/17 01:04) Chest, Pa & Lat (01/27/17 ) Electrocardiogram (01/27/17 ) Bumetanide Inj (Bumex Inj) (01/27/17 01:15) Acetaminophen Inj (Ofirmev Inj) (01/27/17 01:15) Ondansetron Inj (Zofran Inj) (01/27/17 01:15) B-Type Natriuretic Peptide (01/27/17 01:24) Hydromorphone (Dilaudid) (01/27/17 03:00) Labs Laboratory Tests Test 01/27/17 02:55 White Blood Count 7.4 TH/MM3 Red Blood Count 3.72 MIL/MM3 Hemoglobin 11.0 GM/DL Hematocrit 31.8 % Mean Corpuscular Volume 85.5 FL Mean Corpuscular Hemoglobin 29.5 PG Mean Corpuscular Hemoglobin 34.5 % Concent Red Cell Distribution Width 14.5 % Platelet Count 184 TH/MM3 Mean Platelet Volume 10.3 FL Neutrophils (%) (Auto) 67.3 % Lymphocytes (%) (Auto) 25.0 % Monocytes (%) (Auto) 4.7 % Eosinophils (%) (Auto) 2.1 % Basophils (%) (Auto) 0.9 % Neutrophils # (Auto) 5.0 TH/MM3 Lymphocytes # (Auto) 1.9 TH/MM3 Monocytes # (Auto) 0.3 TH/MM3 Eosinophils # (Auto) 0.2 TH/MM3 Basophils # (Auto) 0.1 TH/MM3 CBC Comment DIFF FINAL Differential Comment Sodium Level 145 MEQ/L Potassium Level 4.0 MEQ/L Chloride Level 113 MEQ/L Carbon Dioxide Level 24.4 MEQ/L Anion Gap 8 MEQ/L Blood Urea Nitrogen 30 MG/DL Creatinine 2.33 MG/DL Estimat Glomerular Filtration 25 ML/MIN Rate Random Glucose 93 MG/DL Calcium Level 8.4 MG/DL Total Bilirubin 0.4 MG/DL Aspartate Amino Transf 13 U/L (AST/SGOT) Alanine Aminotransferase 15 U/L (ALT/SGPT) Alkaline Phosphatase 82 U/L B-Type Natriuretic Peptide 2478 PG/ML Total Protein 5.9 GM/DL Albumin 2.4 GM/DL [facility] Medical Decision Making Medical Screen Exam Complete: Yes Emergency Medical Condition: Yes Interpretation(s) Chest x-ray: Cardiomegaly. Lungs are clear. LABS: CBC remarkable for mild anemia. CMP remarkable for mildly elevated BUN and creatinine BNP 2478 Differential Diagnosis Shortness of breath, volume overload, cardiomyopathy, chronic kidney disease, other Narrative Course Medical decision making 27 year-old woman presents emergent arm complaining that she feels short of breath with abdominal and chest pain like she has to much fluid on her again. She history of severe cardiomyopathy. She doesn't appear grossly volume overloaded. On exams normal. No edema. She has some abdominal tenderness. We 'll check her weight again. We'll check x-ray and labs. Dose of IV Bumex. Review of records shows that patient is below her discharge weight from her last admission, and below from when I saw her emergency department several days ago. Diagnosis Primary Impression: Cardiomyopathy Additional Instructions: Continue current medications. Follow-up with your computer science intern and primary care physician. Return to the emergency department for any new or worsening symptoms. Med/Other Pt SpecificInfo: No Change to Meds Disposition: 01 DISCHARGE HOME Condition: Stable Ed Sifuentes MD Jan 27, 2017 01:07
[2017-01-27] MEDS: ACETAMINOPHEN 1000 MG/100 ML VIAL IV ONE (01:15)
--- NOTE | 2017-01-27 01:46 | RADRPT ---
EXAM DATE/TIME: 01/27/2017 01:08 [facility] COMPARISON: CHEST PA & LAT, December 09, 2016, 15:31. INDICATIONS : Chest pain, shortness of breath, cough, congestion, nausea, vomiting. MEDICAL HISTORY : Congestive heart failure. Diabetes mellitus type II. Hypertension. SURGICAL HISTORY : Tonsillectomy. Pacemaker. ENCOUNTER: Initial ACUITY: 2 days PAIN SCORE: 8/10 LOCATION: Left chest under breast. FINDINGS: There is a pacing device in place from the left subclavian approach. The heart size appears mildly en larged for AP chest x-ray. The lungs are clear. CONCLUSION: Cardiomegaly. Josef Giordano MD on January 27, 2017 at 1:43 Board Certified Radiologist. This report was verified electronically.
[2017-01-27] MEDS: ONDANSETRON HCL 4 MG/2 ML VIAL IV PUSH ONE (01:57)
[2017-01-27] MEDS: BUMETANIDE INJ 1 MG/4 ML VIAL IV PUSH ONE ×2 (01:57→05:39)
[2017-01-27] MEDS: HYDROmorphone HCL 4 MG TAB PO ONE (03:21)
[2017-01-27 03:26] LABS: BASOPHIL # 0.1 TH/MM3 (0-0.2); BASOPHIL % 0.9 % (0.0-2.0); EOSINOPHIL # 0.2 TH/MM3 (0-0.4); EOSINOPHIL % 2.1 % (0.0-4.0); HEMATOCRIT 31.8 % (35.0-46.0); HEMO FLAGS DIFF FINAL; LYMPHOCYTE # 1.9 TH/MM3 (1.0-4.8); MEAN CELL VOLUME 85.5 FL (80.0-100.0); MEAN CORPUSCULAR HEMOGLOBIN 29.5 PG (27.0-34.0); MEAN CORPUSCULAR HGB CONC 34.5 % (32.0-36.0); MONO % 4.7 % (0.0-8.0); NEUT % 67.3 % (16.0-70.0); PLATELET COUNT 184 TH/MM3 (150-450); RED BLOOD COUNT 3.72 MIL/MM3 (4.00-5.30); RED CELL DISTRIBUTION WIDTH 14.5 % (11.6-17.2); WHITE BLOOD COUNT 7.4 TH/MM3 (4.0-11.0)
[2017-01-27 03:34] LABS: ALT (GPT) 15 U/L (10-53); ANION GAP 8 MEQ/L (5-15); AST (GOT) 13 U/L (15-37); BICARBONATE 24.4 MEQ/L (21.0-32.0); BLOOD UREA NITROGEN 30 MG/DL (7-18); CHLORIDE 113 MEQ/L (98-107); GLOMERULAR FILTRATION RATE 25 ML/MIN (>89); SODIUM (NA) 145 MEQ/L (136-145)
[2017-01-27 03:36] LABS: ALKALINE PHOSPHATASE 82 U/L (45-117); TOTAL BILIRUBIN ADULT 0.4 MG/DL (0.2-1.0)
[2017-01-27 05:40] VITALS: BP 120/78; PULSE 70; RESP 20; O2SAT 97
--- NOTE | 2017-01-27 10:34 | EKG ---
Date Performed: 01/27/2017 Time Performed: 01:03:54 PTAGE: 27 years EKG: Sinus rhythm LEFT VENTRICULAR HYPERTROPHY AND ST-T CHANGE POSSIBLE SEPTAL MYOCARDIAL INFARCTION ABNORMAL ECG Comp ared to prior tracing no significant change PREVIOUS TRACING 01/14/2017 @12.57.08 DOCTOR: Carole Chance Interpretating Date/Time 01/27/2017 10:27:48
== END 2017-01-27 09:44 | disposition home or self-care (01) ==
LOC: NEPC 00:47
DX: I42.9 Cardiomyopathy, unspecified (principal); R06.02 Shortness of breath; D64.9 Anemia, unspecified; E11.22 Type 2 diabetes mellitus with diabetic chronic kidney disease; I12.9 Hypertensive chronic kidney disease with stage 1 through stage 4 chronic kidney disease, or unspecified chronic kidney disease; N18.9 Chronic kidney disease, unspecified; K86.1 Other chronic pancreatitis; Z79.4 Long term (current) use of insulin; Z79.899 Other long term (current) drug therapy
CPT/HCPCS: 71020; 80053; 83880; 85025; 93005; 96374; 96375; 96376; 99284; J2405

== ENCOUNTER 2017-02-12 10:38 | Observation (INO) | payer MEDICARE, MEDICAID ==
[~2017-02-12] VITALS: Ht 160 cm; Wt 80.8 kg
[2017-02-12 10:41] VITALS: BP 142/89; PULSE 87; RESP 17; TEMP 97.8; O2SAT 99
[2017-02-12 12:06] LABS: AUTOMATED NEUTROPHIL # 3.4 TH/MM3 (1.8-7.7); BASOPHIL # 0.1 TH/MM3 (0-0.2); BASOPHIL % 1.3 % (0.0-2.0); EOSINOPHIL # 0.2 TH/MM3 (0-0.4); EOSINOPHIL % 3.4 % (0.0-4.0); HEMATOCRIT 33.3 % (35.0-46.0); HEMO FLAGS DIFF FINAL; LYMPH % 25.2 % (9.0-44.0); LYMPHOCYTE # 1.3 TH/MM3 (1.0-4.8); MEAN CELL VOLUME 86.7 FL (80.0-100.0); MEAN CORPUSCULAR HEMOGLOBIN 28.3 PG (27.0-34.0); MEAN CORPUSCULAR HGB CONC 32.7 % (32.0-36.0); MONO % 4.5 % (0.0-8.0); NEUT % 65.6 % (16.0-70.0); PLATELET COUNT 124 TH/MM3 (150-450); RED BLOOD COUNT 3.84 MIL/MM3 (4.00-5.30); RED CELL DISTRIBUTION WIDTH 14.2 % (11.6-17.2); WHITE BLOOD COUNT 5.3 TH/MM3 (4.0-11.0)
[2017-02-12] MEDS ORDERED: METOLAZONE 5 MG TAB PO ONE (12:15)
[2017-02-12] MEDS ORDERED: BUMETANIDE INJ 1 MG/4 ML VIAL IV PUSH ONE (12:15)
[2017-02-12] MEDS ORDERED: HYDROmorphone HCL 4 MG TAB PO ONE (12:15)
[2017-02-12 12:20] LABS: ANION GAP 11 MEQ/L (5-15); AST (GOT) 22 U/L (15-37); BICARBONATE 24.2 MEQ/L (21.0-32.0); BLOOD UREA NITROGEN 42 MG/DL (7-18); CHLORIDE 103 MEQ/L (98-107); GLOMERULAR FILTRATION RATE 19 ML/MIN (>89); POTASSIUM 4.1 MEQ/L (3.5-5.1); SODIUM (NA) 138 MEQ/L (136-145)
[2017-02-12 12:23] LABS: ALKALINE PHOSPHATASE 94 U/L (45-117); ALT (GPT) 33 U/L (10-53); TOTAL BILIRUBIN ADULT 0.2 MG/DL (0.2-1.0)
--- NOTE | 2017-02-12 12:37 | PD ---
HPI Chief Complaint: Edema Time Seen by Provider: 11:33 Travel History International Travel<30 days: No Contact w/Intl Traveler<30days: No Traveled to known affect area: No History of Present Illness HPI Is a 27 year-old woman presents to the emergency department complaining of increased lower extremity swelling and edema. She is a history of cardiomyopathy and heart failure and chronic kidney disease. She has frequent exacerbations of her heart failure. She is taking 4 mg of Bumex twice a day. She states despite this since Saturday, about 3 or 4 days, she's had worsening lower extremity edema, and edema in her groin. She states edema is painful. She's had worsening shortness of breath and orthopnea. No other complaints. History Past Medical History Narrative Medical Cardiomyopathy, EF 15%, status post AICD Diabetes Hypertension and chronic pancreatitis, chronic back pain Chronic kidney disease, creatinine baseline 2.5-3 LMP: 01/25/2017 : 1 Para: 1 Social History Alcohol Use: No Tobacco Use: No Allergies-Medications (Allergen,Severity, Reaction): Coded Allergies: Toradol (Verified Adverse Reaction, Mild, SHAKING, 01/27/17) Reported Meds & Prescriptions Reported Meds & Active Scripts Active Xanax (Alprazolam) 0.5 Mg Tab 0.5 Mg PO Q12HR PRN Novolog Inj (Insulin Aspart) 1,000 Unit/10 Ml Vial 1-9 Units SQ ACHS Max dose at bedtime:( )units; sugars less than 70,(0)units; sugars 150-199,(1) unit; sugars 200-249,(3) units; sugars 250-299,(5) units; sugars 300-349,(7) units; sugars greater than 349,(9) units Reported Entresto (Sacubitril-Valsartan) 24-26 Mg Tab 1 Tab PO BID Hydromorphone (Hydromorphone HCl) 4 Mg Tab 4 Mg PO Q6H PRN Review of Systems Except as stated in HPI: all other systems reviewed are Neg Physical Exam Narrative GENERAL: 19 year-old woman, appears uncomfortable, nontoxic. SKIN: Focused skin assessment warm/dry. NECK: Trachea midline. No JVD. CARDIOVASCULAR: Regular rate and rhythm. No murmur appreciated. RESPIRATORY: Rales in both lung florence and posteriorly. No respiratory distress. GASTROINTESTINAL: Abdomen soft, non-tender, nondistended. Hepatic and splenic margins not palpable. MUSCULOSKELETAL: No obvious deformities. Pitting edema bilateral lower extremities. NEUROLOGICAL: Awake and alert. No obvious cranial nerve deficits. Motor grossly within normal limits. Normal speech. PSYCHIATRIC: Appropriate mood and affect; insight and judgment normal. Data Data Last Documented VS Vital Signs Date Time Temp Pulse Resp B/P Pulse Ox O2 Delivery O2 Flow Rate FiO2 02/12/17 12:50 82 18 157/98 98 Room Air 02/12/17 10:41 97.8 Orders Complete Blood Count With Diff (02/12/17 11:34) Comprehensive Metabolic Panel (02/12/17 11:34) B-Type Natriuretic Peptide (02/12/17 11:34) Iv Access Insert/Monitor (02/12/17 11:34) Hydromorphone (Dilaudid) (02/12/17 12:15) Bumetanide Inj (Bumex Inj) (02/12/17 12:15) Metolazone (Zaroxolyn) (02/12/17 12:15) Chest, Single Ap (02/12/17 ) Electrocardiogram (02/12/17 ) Place In Observation (02/12/17 ) Diet Heart Healthy (02/12/17 Lunch) Activity Oob Ad Denisa (02/12/17 13:49) Vital Signs (Adult) JAYLEN.Q4H (02/12/17 13:49) Admit Order (Ed Use Only) (02/12/17 ) Alprazolam (Xanax) (02/12/17 14:00) Hydromorphone (Dilaudid) (02/12/17 14:00) Sacubitril-Valsartan 24-26 Mg (Entresto (02/12/17 21:00) Labs Laboratory Tests Test 02/12/17 11:55 White Blood Count 5.3 TH/MM3 Red Blood Count 3.84 MIL/MM3 Hemoglobin 10.9 GM/DL Hematocrit 33.3 % Mean Corpuscular Volume 86.7 FL Mean Corpuscular Hemoglobin 28.3 PG Mean Corpuscular Hemoglobin 32.7 % Concent Red Cell Distribution Width 14.2 % Platelet Count 124 TH/MM3 Mean Platelet Volume 10.4 FL Neutrophils (%) (Auto) 65.6 % Lymphocytes (%) (Auto) 25.2 % Monocytes (%) (Auto) 4.5 % Eosinophils (%) (Auto) 3.4 % Basophils (%) (Auto) 1.3 % Neutrophils # (Auto) 3.4 TH/MM3 Lymphocytes # (Auto) 1.3 TH/MM3 Monocytes # (Auto) 0.2 TH/MM3 Eosinophils # (Auto) 0.2 TH/MM3 Basophils # (Auto) 0.1 TH/MM3 CBC Comment DIFF FINAL Differential Comment Sodium Level 138 MEQ/L Potassium Level 4.1 MEQ/L Chloride Level 103 MEQ/L Carbon Dioxide Level 24.2 MEQ/L Anion Gap 11 MEQ/L Blood Urea Nitrogen 42 MG/DL Creatinine 2.94 MG/DL Estimat Glomerular Filtration 19 ML/MIN Rate Random Glucose 211 MG/DL Calcium Level 7.8 MG/DL Total Bilirubin 0.2 MG/DL Aspartate Amino Transf 22 U/L (AST/SGOT) Alanine Aminotransferase 33 U/L (ALT/SGPT) Alkaline Phosphatase 94 U/L B-Type Natriuretic Peptide 1037 PG/ML Total Protein 5.5 GM/DL Albumin 2.2 GM/DL [facility] Medical Decision Making Medical Screen Exam Complete: Yes Emergency Medical Condition: Yes Interpretation(s) My review of EKG: Sinus rhythm a rate of 79, leftward axis with LVH and lateral T wave inversions. LABS: CBC remarkable for mild anemia. CMP remarkable for slight increase in creatinine 30/2.33 BNP 2478 My review of chest x-ray: Cardiomegaly, no significant pulmonary edema. AICD in place. Differential Diagnosis Volume overload, worsening heart failure, worsening kidney failure, medication noncompliance, other Narrative Course Medical decision making INITIAL calls a 19 year-old woman presents emergent department of increasing lower extremity swelling and edema despite reported compliance of Bumex 4 mg twice daily. No other complaints. Diagnosis Primary Impression: Acute on chronic systolic (congestive) heart failure Admitting Information Admitting Physician Requests: Ed Gutierrez MD Feb 12, 2017 12:36
[2017-02-12 12:50] VITALS: BP 157/98; PULSE 82; RESP 18; O2SAT 98
--- NOTE | 2017-02-12 13:22 | RADRPT ---
EXAM DATE/TIME: 02/12/2017 12:42 [facility] COMPARISON: CHEST SINGLE AP, January 14, 2017, 13:02. INDICATIONS : Chest pain and swelling in lower extremities. MEDICAL HISTORY : Congestive heart failure. Hypertension Cardiomyopathy SURGICAL HISTORY : Pacemaker. ENCOUNTER: Initial ACUITY: 2 days PAIN SCORE: 6/10 LOCATION: Left upper chest FINDINGS: A single view of the chest demonstrates the lungs to be symmetrically aerated without evidence of mas s, infiltrate or effusion. The heart size remains enlarged with no perihilar edema. The left subclav ofelia transvenous pacer remains in place. Osseous structures are intact. CONCLUSION: Stable appearance with cardiomegaly and no acute cardiopulmonary disease. Brannon Savage MD on February 12, 2017 at 13:20 Board Certified Radiologist. This report was verified electronically.
[2017-02-12] MEDS ORDERED: ALPRAZolam 0.5 MG TAB PO PRN ×2 (14:00→14:30)
--- NOTE | 2017-02-12 14:39 | HHI.HP ---
[facility] Lucio Andrade DO Admission Diagnosis CHF exacerbation Diagnoses: Chief Complaint: Bilateral painful leg swelling Travel History International Travel<30 Days: No Contact w/Intl Traveler <30 Da: No Traveled to Known Affected Are: No History of Present Illness Patient is a very pleasant 27-year-old female with known history of cardiomyopathy with an ejection fraction of 10%. Patient has chronic leg swelling baseline but decrease exercise tolerance but patient states able to pace herself. Patient was recently incarcerated from December 01 to December 08 for 1 week. Patient states that his heel she did not get any of her medications there. For the past 2 days now has been having increasing leg swelling and increasing shortness of breath and pain from both lower extremities. Baseline orthopnea. Patient states that she take her medications. Persistence of this prompted consult to ER admitted for IV diuretics and observation. Review of Systems Constitutional: DENIES: Diaphoretic episodes, Fatigue, Fever, Weight gain, Weight loss, Chills, Dizziness, Change in appetite, Night Sweats Endocrine: DENIES: Abnorml menstrual pattern, Heat/cold intolerance, Polydipsia , Polyuria, Polyphagia Eyes: DENIES: Blurred vision, Diplopia, Eye inflammation, Eye pain, Vision loss , Photosensitivity, Double Vision Ears, nose, mouth, throat: DENIES: Tinnitus, Hearing loss, Vertigo, Nasal discharge, Oral lesions, Throat pain, Hoarseness, Ear Pain, Running Nose, Epistaxis, Sinus Pain, Toothache, Odynophagia Respiratory: COMPLAINS OF: Shortness of breath Cardiovascular: DENIES: Chest pain, Palpitations, Syncope, Dyspnea on Exertion , PND, Lower Extremity Edema, Orthopnea, Claudication Gastrointestinal: DENIES: Abdominal pain, Black stools, Bloody stools, Constipation, Diarrhea, Nausea, Vomiting, Difficulty Swallowing, Anorexia Genitourinary: DENIES: Abnormal vaginal bleeding, Dysmenorrhea, Dyspareunia, Sexual dysfunction, Urinary frequency, Urinary incontinence, Urgency, Hematuria , Dysuria, Nocturia, Vaginal discharge Musculoskeletal: DENIES: Joint pain, Muscle aches, Stiffness, Joint Swelling, Back pain, Neck pain Integumentary: DENIES: Abnormal pigmentation, Pruritus, Rash, Nail changes, Breast masses, Breast skin changes, Nipple discharge Hematologic/lymphatic: DENIES: Bruising, Lymphadenopathy Immunologic/allergic: DENIES: Eczema, Urticaria Neurologic: DENIES: Abnormal gait, Headache, Localized weakness, Paresthesias, Seizures, Speech Problems, Tremor, Poor Balance Psychiatric: DENIES: Anxiety, Confusion, Mood changes, Depression, Hallucinations, Agitation, Suicidal Ideation, Homicidal Ideation, Delusions Past Family Social History Past Medical History cardiomyopathy with ejection fraction of 10% status post AICD in 2012 replace in July 2016 Diabetes type 2 per patient she hasn't been taking any insulins "hardly" History of anxiety disorder followed by a psychiatrist in [place]. Past Surgical History Cholecystectomy sections, tubal ligation Reported Medications Cor regular 18.75 mg twice a And testicle Bumex 4 mg every 12 Alprazolam twice a day when necessary Allergies: Coded Allergies: Toradol (Verified Adverse Reaction, Mild, SHAKING, 01/27/17) Family History Both grandparents have history of heart disease Social History No smoking or alcohol or substance abuse Physical Exam Vital Signs Vital Signs Date Time Temp Pulse Resp B/P Pulse Ox O2 Delivery O2 Flow Rate FiO2 02/12/17 12:50 82 18 157/98 98 Room Air 02/12/17 11:41 16 Room Air 02/12/17 10:41 97.8 87 17 142/89 99 Physical Exam GENERAL, awake and alert in no apparent distress. SKIN: No rashes, ecchymoses or lesions. Cool and dry. HEAD: Atraumatic. Normocephalic. No temporal or scalp tenderness. EYES: Pupils equal round and reactive. Extraocular motions intact. No scleral icterus. No injection or drainage. ENT: Nose without bleeding, purulent drainage or septal hematoma. Throat without erythema, tonsillar hypertrophy or exudate. Uvula midline. Airway patent. NECK: Trachea midline. No JVD or lymphadenopathy. Supple, nontender, no meningeal signs. CARDIOVASCULAR: Regular rate and rhythm without murmurs, gallops, or rubs. RESPIRATORY: Clear to auscultation. Breath sounds equal bilaterally. No wheezes , rales, or rhonchi. GASTROINTESTINAL: Abdomen soft, non-tender, nondistended. No hepato-splenomegaly , or palpable masses. No guarding. MUSCULOSKELETAL: +2 pitting edema, positive calf tenderness both lower extremity , +2 peripheral pulses NEUROLOGICAL: Awake and alert. Cranial nerves II through XII intact. Motor and sensory grossly within normal limits. Five out of 5 muscle strength in all muscle groups. Normal speech. Laboratory Laboratory Tests Test 02/12/17 11:55 White Blood Count 5.3 Red Blood Count 3.84 Hemoglobin 10.9 Hematocrit 33.3 Mean Corpuscular Volume 86.7 Mean Corpuscular Hemoglobin 28.3 Mean Corpuscular Hemoglobin 32.7 Concent Red Cell Distribution Width 14.2 Platelet Count 124 Mean Platelet Volume 10.4 Neutrophils (%) (Auto) 65.6 Lymphocytes (%) (Auto) 25.2 Monocytes (%) (Auto) 4.5 Eosinophils (%) (Auto) 3.4 Basophils (%) (Auto) 1.3 Neutrophils # (Auto) 3.4 Lymphocytes # (Auto) 1.3 Monocytes # (Auto) 0.2 Eosinophils # (Auto) 0.2 Basophils # (Auto) 0.1 CBC Comment DIFF FINAL Differential Comment Sodium Level 138 Potassium Level 4.1 Chloride Level 103 Carbon Dioxide Level 24.2 Anion Gap 11 Blood Urea Nitrogen 42 Creatinine 2.94 Estimat Glomerular Filtration 19 Rate Random Glucose 211 Calcium Level 7.8 Total Bilirubin 0.2 Aspartate Amino Transf 22 (AST/SGOT) Alanine Aminotransferase 33 (ALT/SGPT) Alkaline Phosphatase 94 B-Type Natriuretic Peptide 1037 Total Protein 5.5 Albumin 2.2 Result Diagram: 02/12/17 1155 02/12/17 1155 Imaging Last Impressions Chest X-Ray 02/12/17 0000 Signed Impressions: Service Date/Time: Sunday, February 12, 2017 12:42 - CONCLUSION: Stable appearance with cardiomegaly and no acute cardiopulmonary disease. Brannon Savage MD Assessment and Plan Assessment and Plan 27 year old female presenting with increasing shortness of breath and leg swelling Acute CHF exacerbation with underlying cardiomyopathy status post AICD We'll give IV diuresis, Continue on Entresto. Increase Coreg to 25 mg twice a day Diabetes mellitus per patient controlled. check A1C. ff blood sugars=RBS 211. Anxiety disorder. Continue on alprazolam Chronic kidney insufficiency creatinine baseline. Chronic pain- continue on OP pain regimen If stable in a.m. discharge. Discussed Condition With Patient Jl Noguera MD Feb 12, 2017 14:39
[2017-02-12 15:15] VITALS: BP 129/78; PULSE 78; RESP 16; O2SAT 97
--- NOTE | 2017-02-12 16:38 | RADRPT ---
EXAM DATE/TIME: 02/12/2017 16:00 [facility] COMPARISON: US LEG BILATERAL VENOUS DOPPLER, December 01, 2016, 19:30. INDICATIONS : Leg swelling. MEDICAL HISTORY : Hypercholesterolemia. Hypertension. Neurological problems. Cardiomyopathy. Irregular heartbeat. Dysp filippo. SURGICAL HISTORY : Tonsillectomy.Cholecystectomy. Tubal ligation.Pacemaker. Internal defibrillator. ENCOUNTER: Initial ACUITY: 1 day PAIN SCORE: 0/10 LOCATION: Bilateral legs. TECHNIQUE: Venous ultrasound of the left and right leg was performed from the inguinal ligament to the proximal calf. Real-time, color Doppler and spectral tracing, compression and augmentation techniques were us ed. FINDINGS: RIGHT LEG: There is normal compressibility of the deep venous system from the inguinal region to the proximal ca lf. No echogenic clot is seen in the lumen of the common femoral, femoral, popliteal, and posterior tibial veins. There is a normal response of the venous system to proximal and distal augmentation an d respiration. LEFT LEG: There is normal compressibility of the deep venous system from the inguinal region to the proximal ca lf. No echogenic clot is seen in the lumen of the common femoral, femoral, popliteal, and posterior tibial veins. There is a normal response of the venous system to proximal and distal augmentation an d respiration. CONCLUSION: Negative exam with no evidence of deep venous thrombosis. Brannon Savage MD on February 12, 2017 at 16:36 Board Certified Radiologist. This report was verified electronically.
[2017-02-12 17:08] LABS: AMPHETAMINE, URINE NEG (NEG); BARBITURATES, URINE NEG (NEG); COCAINE, URINE NEG (NEG)
[2017-02-12 18:00] VITALS: BP 130/78; PULSE 78; RESP 18; TEMP 97.8; O2SAT 97
[2017-02-12] MEDS: HYDROmorphone HCL 4 MG TAB PO PRN (18:01)
[2017-02-12] MEDS: BUMETANIDE INJ 1 MG/4 ML VIAL IV PUSH SCH (18:01)
[2017-02-12 19:39] VITALS: BP 124/71; PULSE 69; RESP 20; TEMP 98.1; O2SAT 97
[2017-02-12] MEDS: SACUBITRIL/VALSARTAN 24 MG-26 MG TAB PO SCH (21:14)
[2017-02-12] MEDS: CARVEDILOL 12.5 MG TAB PO SCH (21:15)
[2017-02-13 00:20] VITALS: BP 134/76; PULSE 71; RESP 20; TEMP 98.3; O2SAT 99
[2017-02-13] MEDS: HYDROmorphone HCL 4 MG TAB PO PRN ×4 (00:39→16:18)
[2017-02-13 04:33] VITALS: BP 102/57; PULSE 76; RESP 18; O2SAT 96
[2017-02-13 08:31] VITALS: BP 131/63; PULSE 132; RESP 22; O2SAT 96
[2017-02-13] MEDS: BUMETANIDE INJ 1 MG/4 ML VIAL IV PUSH SCH (08:48)
[2017-02-13] MEDS: SACUBITRIL/VALSARTAN 24 MG-26 MG TAB PO SCH (08:48)
[2017-02-13] MEDS: CARVEDILOL 12.5 MG TAB PO SCH (08:48)
--- NOTE | 2017-02-13 11:01 | EKG ---
Date Performed: 02/12/2017 Time Performed: 12:47:59 PTAGE: 27 years EKG: Sinus rhythm LEFT VENTRICULAR HYPERTROPHY AND ST-T CHANGE ABNORMAL ECG Compared to prior tracing no significant c kalyn DOCTOR: Kelsie Tompkins Interpretating Date/Time 02/13/2017 11:00:11
[2017-02-13 12:16] VITALS: BP 120/66; PULSE 80; RESP 23; TEMP 99; O2SAT 98
[2017-02-13 15:33] VITALS: BP 122/80; PULSE 82; RESP 23; TEMP 99.6; O2SAT 100
--- NOTE | 2017-02-13 15:57 | HHI.PR ---
Subjective Remarks feeling better ambulating and speaking in more comfortable way and terms ;leg swelling decreased Objective Vitals Vital Signs Date Time Temp Pulse Resp B/P Pulse Ox O2 Delivery O2 Flow Rate FiO2 02/13/17 15:33 99.6 82 23 122/80 100 02/13/17 13:53 16 02/13/17 12:16 99.0 80 23 120/66 98 02/13/17 08:31 132 22 131/63 96 02/13/17 04:33 76 18 102/57 96 02/13/17 00:20 98.3 71 20 134/76 99 02/12/17 19:39 98.1 69 20 124/71 97 02/12/17 18:00 97.8 78 18 130/78 97 I/O 02/12/17 02/12/17 02/12/17 02/13/17 02/13/17 02/13/17 07:00 15:00 23:00 07:00 15:00 23:00 Output Total 500 ml Balance -500 ml Output Urine Total 500 ml # Voids 3 Result Diagram: 02/12/17 1155 02/12/17 1155 Imaging Last Impressions Lower Extremity Ultrasound 02/12/17 0000 Signed Impressions: Service Date/Time: Sunday, February 12, 2017 16:00 - CONCLUSION: Negative exam with no evidence of deep venous thrombosis. Brannon Savage MD Chest X-Ray 02/12/17 0000 Signed Impressions: Service Date/Time: Sunday, February 12, 2017 12:42 - CONCLUSION: Stable appearance with cardiomegaly and no acute cardiopulmonary disease. Brannon Savage MD Objective Remarks awake and alert, NAD anicteric lungs no rales or wheezes regular rhythm abdomen soft, nontender extremities tr pedal edema A/P Assessment and Plan 27 year old female presenting with increasing shortness of breath and leg swelling Acute CHF exacerbation with underlying cardiomyopathy status post AICD- clinically improved DC today on po diuretics - home dose 4 mg bid Continue on Entresto. increased Coreg to 25 mg twice a day Diabetes mellitus per patient controlled. . ff blood sugars=, good hypolgycemic awareness. reinforced diet and compliance -discussed with her, continue home regimen and diet Anxiety disorder. Continue on alprazolam Chronic kidney insufficiency creatinine baseline. Chronic pain- continue on OP pain regimen- dilaudid 2 mg po q 8 prn DC home today- FF up with PCP- Dr. Andrade or patient states she will set up with another PCP if she finds another one activity as tolerated. heart healthy ADA diet Meds- continue on bumex 4 mg po bid we increase her coreg to 25 mg po bid- per patient she has lots of 6.25 and 12.5 mg pill at home Dilaudid 2 mg po q 8 prn for pain Jl Noguera MD Feb 13, 2017 15:57
[2017-02-13] MEDS ORDERED: CARV12.5 PO (16:09)
[2017-02-13] MEDS ORDERED: DILA2TAB2 PO ×2 (16:10→16:19)
[2017-02-13] MEDS ORDERED: BUME1TAB28 PO (16:13)
== END 2017-02-13 18:38 | disposition home or self-care (01) ==
LOC: NEPE 10:38 → NEDA 13:53 → NEPHCDU 17:56
PROVIDERS: ADMIT Internal Medicine; ATTEND Internal Medicine
DX: I13.0 Hypertensive heart and chronic kidney disease with heart failure and stage 1 through stage 4 chronic kidney disease, or unspecified chronic kidney disease (principal); M79.89 Other specified soft tissue disorders; I42.9 Cardiomyopathy, unspecified; N18.9 Chronic kidney disease, unspecified; E11.22 Type 2 diabetes mellitus with diabetic chronic kidney disease; I50.23 Acute on chronic systolic (congestive) heart failure; Z95.810 Presence of automatic (implantable) cardiac defibrillator; Z79.4 Long term (current) use of insulin; G89.29 Other chronic pain; R94.31 Abnormal electrocardiogram [ECG] [EKG]; E78.00 Pure hypercholesterolemia, unspecified; O90.3 Peripartum cardiomyopathy; R60.9 Edema, unspecified
CPT/HCPCS: 71010; 80053; 80307; 83880; 85025; 93005; 93970; 96374; 99285; G0378

== ENCOUNTER 2017-02-27 22:25 | Emergency (ER) | payer MEDICARE, MEDICAID ==
[~2017-02-27] VITALS: Ht 160 cm; Wt 82.0 kg
[~2017-02-27 22:25] MED LIST changes: -ALPR.5 PO; +CARV12.5 PO; -CARV12.52 PO; +DILA2TAB2 PO; -HYDR4TAB PO
[2017-02-27 22:34] VITALS: BP 141/94; PULSE 112; RESP 24; TEMP 99; O2SAT 100
[2017-02-27 22:37] VITALS: BP 141/94; PULSE 104; RESP 16; TEMP 99; O2SAT 98
[2017-02-27 22:41] VITALS: PULSE 102; RESP 18
--- NOTE | 2017-02-27 23:00 | PD ---
HPI Chief Complaint: Respiratory Symptoms Time Seen by Provider: 22:30 Travel History International Travel<30 days: No Contact w/Intl Traveler<30days: No Traveled to known affect area: No History of Present Illness HPI 27-year-old female complains of chest pain. Patient has history of cardiomyopathy status post AICD placement. Patient states that she has recurrent left sided chest pain for the last several years. Patient states that she started having increasing left side chest pain since yesterday. Patient states the pain is sharp pain localized left chest. Patient denies any pain radiation. Patient denies any palpitation nausea vomiting diaphoresis. Patient denies fever chills. Patient states that she has persistent cough for the past 2 days. Patient states the chest pain is worse with coughing and deep breathing. Patient states that she has history of CHF and ran out of her Bumex 2 days ago. Patient states that she is on Dilaudid 2 mg 3 times a day needed for pain. Patient has been seeing pain management for chronic pain. Patient states that she did not take her Dilaudid pain medication today. Patient states that she has increasing shortness of breath today also. PFSH Past Medical History Arthritis: No Asthma: No Autoimmune Disease: No Blood Disorders: No Anxiety: Yes Depression: No Heart Rhythm Problems: Yes Cancer: No Cardiac Catheterization: Yes (AICD removed and another implant) Cardiomyopathy: Yes Cardiovascular Problems: Yes High Cholesterol: Yes Chemotherapy: No Chest Pain: Yes Congestive Heart Failure: Yes COPD: No Diabetes: Yes Diminished Hearing: No Endocrine: Yes Gastrointestinal Disorders: Yes (Pancreatitis) GERD: No Genitourinary: Yes (Chronic Kidney disease) Headaches: Yes Hiatal Hernia: No Hypertension: Yes Immune Disorder: No Implanted Vascular Access Dvce: Yes Kidney Stones: No Musculoskeletal: Yes (Back) Neurologic: Yes (Neuropathy) Psychiatric: No Reproductive: Yes Respiratory: Yes Integumentary: Yes (skin swelling and various bruises abdo and bilateral arms from IV sticks) Immunizations Current: Yes Migraines: Yes Radiation Therapy: No Renal Failure: Yes Seizures: No Sickle Cell Disease: No Sleep Apnea: No Thyroid Disease: No Ulcer: No Tetanus Vaccination: < 5 Years Influenza Vaccination: Yes ?: Not LMP: 02/19/17 : 1 Para: 1 Miscarriage: 0 : 0 Tubal Ligation: Yes Past Surgical History Abdominal Surgery: Yes (CHOLECYSTECTOMY) AICD: Yes Arteriovenous Shunt: No Body Medical Devices: PT WORE EXTERNAL LIFE VEST 05/15/13, pacer/defibrillator Cardiac Surgery: Yes (pace maker 2015) Section: Yes Cholecystectomy: Yes Ear Surgery: No Endocrine Surgery: No Eye Surgery: No Genitourinary Surgery: No Gynecologic Surgery: Yes (, TUBAL) Insulin Pump: No Joint Replacement: No Oral Surgery: No Pacemaker: Yes Thoracic Surgery: No Tonsillectomy: Yes Other Surgery: Yes (, Tubal ligation, Gallbladder) Social History Alcohol Use: No Tobacco Use: No Substance Use: No Allergies-Medications (Allergen,Severity, Reaction): Coded Allergies: Toradol (Verified Adverse Reaction, Mild, SHAKING, 02/27/17) Reported Meds & Prescriptions Reported Meds & Active Scripts Active Dilaudid (Hydromorphone HCl) 2 Mg Tab 2 Mg PO Q8H PRN Bumex (Bumetanide) 2 Mg Tab 4 Mg PO BID 30 Days Coreg (Carvedilol) 12.5 Mg Tab 25 Mg PO Q12HR 30 Days Novolog Inj (Insulin Aspart) 1,000 Unit/10 Ml Vial 1-9 Units SQ ACHS Max dose at bedtime:( )units; sugars less than 70,(0)units; sugars 150-199,(1) unit; sugars 200-249,(3) units; sugars 250-299,(5) units; sugars 300-349,(7) units; sugars greater than 349,(9) units Reported Entresto (Sacubitril-Valsartan) 24-26 Mg Tab 1 Tab PO BID Review of Systems General / Constitutional: No: Fever Eyes: No: Visual changes HENT: No: Headaches Cardiovascular: Positive: Chest Pain or Discomfort Respiratory: Positive: Shortness of Breath Gastrointestinal: No: Abdominal Pain Genitourinary: No: Dysuria Musculoskeletal: No: Pain Skin: No Rash Neurologic: No: Weakness Psychiatric: No: Depression Endocrine: No: Polydipsia Hematologic/Lymphatic: No: Easy Bruising Physical Exam Narrative GENERAL: Well-nourished, well-developed patient. SKIN: Focused skin assessment warm/dry. HEAD: Normocephalic. EYES: No scleral icterus. No injection or drainage. NECK: Supple, trachea midline. No JVD or lymphadenopathy. CARDIOVASCULAR: Regular rate and rhythm without murmurs, gallops, or rubs. RESPIRATORY: Breath sounds equal bilaterally. No accessory muscle use. GASTROINTESTINAL: Abdomen soft, non-tender, nondistended. MUSCULOSKELETAL: No cyanosis. Patient had +1 to +2 pitting edema lower extremity. BACK: Nontender without obvious deformity. No CVA tenderness. Neurologic exam normal. Data Data Last Documented VS Vital Signs Date Time Temp Pulse Resp B/P Pulse Ox O2 Delivery O2 Flow Rate FiO2 02/27/17 22:41 102 18 Room Air 02/27/17 22:37 99.0 141/94 98 Orders Electrocardiogram (02/27/17 22:35) Complete Blood Count With Diff (02/27/17 22:35) Comprehensive Metabolic Panel (02/27/17 22:35) Creatine Kinase (Cpk) (02/27/17 22:35) Troponin I (02/27/17 22:35) B-Type Natriuretic Peptide (02/27/17 22:35) Prothrombin Time / Inr (Pt) (02/27/17 22:35) Act Partial Throm Time (Ptt) (02/27/17 22:35) Chest, Single Ap (02/27/17 22:35) Iv Access Insert/Monitor (02/27/17 22:35) Ecg Monitoring (02/27/17 22:35) Oximetry (02/27/17 22:35) Morphine Inj (Morphine Inj) (02/27/17 23:45) Ondansetron Inj (Zofran Inj) (02/27/17 23:45) Bumetanide Inj (Bumex Inj) (02/28/17 01:30) Labs Laboratory Tests Test 02/27/17 23:30 Prothrombin Time 11.6 SEC Prothromb Time International 1.0 RATIO Ratio Activated Partial 24.0 SEC Thromboplast Time White Blood Count 6.5 TH/MM3 Red Blood Count 4.12 MIL/MM3 Hemoglobin 11.7 GM/DL Hematocrit 34.6 % Mean Corpuscular Volume 83.9 FL Mean Corpuscular Hemoglobin 28.4 PG Mean Corpuscular Hemoglobin 33.8 % Concent Red Cell Distribution Width 14.5 % Platelet Count 147 TH/MM3 Mean Platelet Volume 11.3 FL Neutrophils (%) (Auto) 66.0 % Lymphocytes (%) (Auto) 23.6 % Monocytes (%) (Auto) 5.4 % Eosinophils (%) (Auto) 3.1 % Basophils (%) (Auto) 1.9 % Neutrophils # (Auto) 4.3 TH/MM3 Lymphocytes # (Auto) 1.5 TH/MM3 Monocytes # (Auto) 0.4 TH/MM3 Eosinophils # (Auto) 0.2 TH/MM3 Basophils # (Auto) 0.1 TH/MM3 CBC Comment DIFF FINAL Differential Comment Sodium Level 143 MEQ/L Potassium Level 4.1 MEQ/L Chloride Level 112 MEQ/L Carbon Dioxide Level 20.4 MEQ/L Anion Gap 11 MEQ/L Blood Urea Nitrogen 32 MG/DL Creatinine 2.59 MG/DL Estimat Glomerular Filtration 22 ML/MIN Rate Random Glucose 99 MG/DL Calcium Level 8.1 MG/DL Total Bilirubin 0.5 MG/DL Aspartate Amino Transf 25 U/L (AST/SGOT) Alanine Aminotransferase 30 U/L (ALT/SGPT) Alkaline Phosphatase 103 U/L Total Creatine Kinase 56 U/L Troponin I 0.02 NG/ML B-Type Natriuretic Peptide 2358 PG/ML Total Protein 5.9 GM/DL Albumin 2.3 GM/DL MDM Medical Decision Making Medical Screen Exam Complete: Yes Emergency Medical Condition: Yes Interpretation(s) 20-50 9 PM. EKG shows sinus rhythm with rates 102. Nonspecific ST-T wave change. 1:04 AM. Last Impressions Chest X-Ray 02/27/172234 Signed Impressions: Service Date/Time: Monday, February 27, 2017 22:49 - CONCLUSION: Cardiomegaly. Clear lungs. Uli Bean Jr., MD 1:04 AM. Differential Diagnosis Differential diagnosis including atypical chest pain, angina, NV, PE, pneumothorax, acute exacerbation of CHF. Narrative Course 27-year-old female with recurrent left side chest pain and shortness of breath and history of cardiomyopathy and CHF. Patient ran out of of the Bumex 2 days ago. Patient has history of chronic pain. Morphine 2 mg IV. Zofran 4 mg IV. Bumex 1 mg IV. Diagnosis Primary Impression: Chest pain Qualified Code: R07.9 - Chest pain, unspecified type Additional Impression: History of CHF (congestive heart failure) Patient Instructions: General Instructions Additional Instructions: Take medications as directed. Follow-up with local physician. Return if worse. Med/Other Pt SpecificInfo: Prescription(s) given Scripts Bumetanide (Bumex)2 Mg Tab4 Mg PO BID #120 TAB Ref 0 Prov:Lew Damon MD 02/28/17 Carvedilol (Coreg)12.5 Mg Tab25 Mg PO Q12HR #120 TAB Prov:Lew Damon MD 02/28/17 Disposition: 01 DISCHARGE HOME Condition: Stable Lew Damon MD February 27, 2017 23:00
--- NOTE | 2017-02-27 23:18 | RADRPT ---
EXAM DATE/TIME: 02/27/2017 22:49 [facility] COMPARISON: CHEST SINGLE AP, February 12, 2017, 12:42. INDICATIONS : Chest pain. MEDICAL HISTORY : None. SURGICAL HISTORY : Pacemaker. ENCOUNTER: Initial ACUITY: 1 day PAIN SCORE: 6/10 LOCATION: Bilateral chest FINDINGS: A single view of the chest demonstrates the lungs to be symmetrically aerated without evidence of mas s, infiltrate or effusion. Mild cardiomegaly. No pulmonary vascular engorgement. Left-sided pacing de vice.. Osseous structures are intact. CONCLUSION: Cardiomegaly. Clear lungs. Uli Bean Jr., MD on February 27, 2017 at 23:16 Board Certified Radiologist. This report was verified electronically.
[2017-02-27] MEDS ORDERED: ONDANSETRON HCL 4 MG/2 ML VIAL IV PUSH ONE (23:45)
[2017-02-27] MEDS ORDERED: MORPHINE SULFATE 4 MG/ML INJ IV PUSH ONE (23:45)
[2017-02-27 23:51] LABS: AUTOMATED NEUTROPHIL # 4.3 TH/MM3 (1.8-7.7); BASOPHIL # 0.1 TH/MM3 (0-0.2); BASOPHIL % 1.9 % (0.0-2.0); EOSINOPHIL # 0.2 TH/MM3 (0-0.4); EOSINOPHIL % 3.1 % (0.0-4.0); HEMATOCRIT 34.6 % (35.0-46.0); HEMO FLAGS DIFF FINAL; LYMPH % 23.6 % (9.0-44.0); LYMPHOCYTE # 1.5 TH/MM3 (1.0-4.8); MEAN CELL VOLUME 83.9 FL (80.0-100.0); MEAN CORPUSCULAR HEMOGLOBIN 28.4 PG (27.0-34.0); MEAN CORPUSCULAR HGB CONC 33.8 % (32.0-36.0); MONO % 5.4 % (0.0-8.0); PLATELET COUNT 147 TH/MM3 (150-450); RED BLOOD COUNT 4.12 MIL/MM3 (4.00-5.30); RED CELL DISTRIBUTION WIDTH 14.5 % (11.6-17.2); WHITE BLOOD COUNT 6.5 TH/MM3 (4.0-11.0)
[2017-02-27 23:53] LABS: PROTHROMBIN TIME - PATIENT 11.6 SEC (9.8-11.6)
[2017-02-28] LABS: ANION GAP 11 MEQ/L (5-15); AST (GOT) 25 U/L (15-37); BICARBONATE 20.4 MEQ/L (21.0-32.0); BLOOD UREA NITROGEN 32 MG/DL (7-18); CHLORIDE 112 MEQ/L (98-107); GLOMERULAR FILTRATION RATE 22 ML/MIN (>89); POTASSIUM 4.1 MEQ/L (3.5-5.1); SODIUM (NA) 143 MEQ/L (136-145)
[2017-02-28 00:05] LABS: ALKALINE PHOSPHATASE 103 U/L (45-117); ALT (GPT) 30 U/L (10-53); TOTAL BILIRUBIN ADULT 0.5 MG/DL (0.2-1.0)
[2017-02-28 00:12] LABS: CREATINE KINASE 56 U/L (26-192)
[2017-02-28] MEDS ORDERED: CARV12.5 PO (01:28)
[2017-02-28] MEDS ORDERED: BUME1TAB28 PO (01:28)
[2017-02-28] MEDS ORDERED: BUMETANIDE INJ 1 MG/4 ML VIAL IV PUSH ONE (01:30)
--- NOTE | 2017-02-28 16:42 | EKG ---
Date Performed: 02/27/2017 Time Performed: 22:35:31 PTAGE: 27 years EKG: Sinus tachycardia LEFT VENTRICULAR HYPERTROPHY AND ST-T CHANGE ABNORMAL ECG COMPARED TO FLORES OR ELECTROCARDIOGRAM, Rate has increased. NO PREVIOUS TRACING DOCTOR: Juan Miguel Doyle Interpretating Date/Time 02/28/2017 16:40:37
== END 2017-02-28 01:58 | disposition home or self-care (01) ==
LOC: NEPE 22:25
DX: R07.9 Chest pain, unspecified (principal); I50.9 Heart failure, unspecified; I12.9 Hypertensive chronic kidney disease with stage 1 through stage 4 chronic kidney disease, or unspecified chronic kidney disease; N18.9 Chronic kidney disease, unspecified
CPT/HCPCS: 71010; 80053; 82550; 83880; 84484; 85025; 85610; 85730; 93005; 96374; 96375; 99285; J2270; J2405

== ENCOUNTER 2017-03-08 08:50 | Observation (INO) | payer MEDICARE, MEDICAID ==
[2017-03-08] VITALS (8 sets, daily range): BP systolic 110–172; BP diastolic 75–102; PULSE 71–103; RESP 16–19; TEMP 97.9–99.4; O2SAT 96–100
[~2017-03-08] VITALS: Ht 162.6 cm; Wt 81.0 kg
--- NOTE | 2017-03-08 10:05 | RADRPT ---
EXAM DATE/TIME: 03/08/2017 09:40 [facility] COMPARISON: CHEST SINGLE AP, February 27, 2017, 22:49. INDICATIONS : Shortness of breath with general body pain. MEDICAL HISTORY : Cardiomyopathy. SURGICAL HISTORY : Pacemaker. ENCOUNTER: Initial ACUITY: 2 days PAIN SCORE: 4/10 LOCATION: Whole body. FINDINGS: Board Certified Radiologist. This report was verified electronically. The lungs are clear. The heart is minimally enlarged. Pacer is evident. The pulmonary vascularity i s normal. There is no evidence for infiltrate or failure. The portion of the bony skeleton visualized is unremarkable. CONCLUSION: Compensated cardiomegaly otherwise negative Westley Cerna MD FACR
[2017-03-08 10:19] LABS: BASOPHIL # 0.1 TH/MM3 (0-0.2); EOSINOPHIL # 0.2 TH/MM3 (0-0.4); EOSINOPHIL % 2.6 % (0.0-4.0); HEMATOCRIT 32.2 % (35.0-46.0); HEMO FLAGS DIFF FINAL; LYMPH % 16.4 % (9.0-44.0); LYMPHOCYTE # 1.1 TH/MM3 (1.0-4.8); MEAN CELL VOLUME 84.2 FL (80.0-100.0); MEAN CORPUSCULAR HEMOGLOBIN 28.2 PG (27.0-34.0); MEAN CORPUSCULAR HGB CONC 33.5 % (32.0-36.0); MONO % 4.4 % (0.0-8.0); NEUT % 75.6 % (16.0-70.0); PLATELET COUNT 145 TH/MM3 (150-450); RED BLOOD COUNT 3.83 MIL/MM3 (4.00-5.30); RED CELL DISTRIBUTION WIDTH 14.4 % (11.6-17.2); WHITE BLOOD COUNT 6.7 TH/MM3 (4.0-11.0)
--- NOTE | 2017-03-08 10:25 | PD ---
HPI Chief Complaint: Edema Time Seen by Provider: 09:44 Travel History International Travel<30 days: No Contact w/Intl Traveler<30days: No Traveled to known affect area: No History of Present Illness HPI This is a 27-year-old female with unfortunate history of cardiomyopathy with an ejection fraction of 10% secondary to childbirth, who presents today with complaints of worsening edema to her extremities abdomen. The patient reports mild shortness of breath. She denies any chest pain, chest pressure. She states she's been taking her diuretic as prescribed however she's had increasing swelling that is not going away. There are no other complaints at the time of my examination. PFSH Past Medical History Arthritis: No Asthma: No Autoimmune Disease: No Blood Disorders: No Anxiety: Yes Depression: No Heart Rhythm Problems: Yes Cancer: No Cardiac Catheterization: Yes (AICD removed and another implant) Cardiomyopathy: Yes Cardiovascular Problems: Yes (Cardiomyopathy s/p child 4 years ago) High Cholesterol: Yes Chemotherapy: No Chest Pain: Yes Congestive Heart Failure: Yes COPD: No Diabetes: Yes Diminished Hearing: No Endocrine: Yes Gastrointestinal Disorders: Yes (Pancreatitis) GERD: No Genitourinary: Yes (Chronic Kidney disease) Headaches: Yes Hiatal Hernia: No Hypertension: Yes Immune Disorder: No Implanted Vascular Access Dvce: Yes Kidney Stones: No Musculoskeletal: Yes (Back) Neurologic: Yes (Neuropathy) Psychiatric: No Reproductive: Yes Respiratory: Yes Integumentary: Yes (skin swelling and various bruises abdo and bilateral arms from IV sticks) Immunizations Current: Yes Migraines: Yes Radiation Therapy: No Renal Failure: Yes Seizures: No Sickle Cell Disease: No Sleep Apnea: No Thyroid Disease: No Ulcer: No ?: Unknown : 1 Para: 1 Miscarriage: 0 : 0 Tubal Ligation: Yes Past Surgical History Abdominal Surgery: Yes (CHOLECYSTECTOMY) AICD: Yes Arteriovenous Shunt: No Body Medical Devices: PT WORE EXTERNAL LIFE VEST 05/15/13, pacer/defibrillator Cardiac Surgery: Yes (pace maker 2015) Section: Yes Cholecystectomy: Yes Ear Surgery: No Endocrine Surgery: No Eye Surgery: No Genitourinary Surgery: No Gynecologic Surgery: Yes (, TUBAL) Insulin Pump: No Joint Replacement: No Oral Surgery: No Pacemaker: Yes Thoracic Surgery: No Tonsillectomy: Yes Other Surgery: Yes (, Tubal ligation, Gallbladder) Social History Alcohol Use: No Tobacco Use: No Substance Use: No Allergies-Medications (Allergen,Severity, Reaction): Coded Allergies: Toradol (Verified Adverse Reaction, Mild, SHAKING, 02/27/17) Reported Meds & Prescriptions Reported Meds & Active Scripts Active Bumex (Bumetanide) 2 Mg Tab 4 Mg PO BID Coreg (Carvedilol) 12.5 Mg Tab 25 Mg PO Q12HR Dilaudid (Hydromorphone HCl) 2 Mg Tab 2 Mg PO Q8H PRN Novolog Inj (Insulin Aspart) 1,000 Unit/10 Ml Vial 1-9 Units SQ ACHS Max dose at bedtime:( )units; sugars less than 70,(0)units; sugars 150-199,(1) unit; sugars 200-249,(3) units; sugars 250-299,(5) units; sugars 300-349,(7) units; sugars greater than 349,(9) units Reported Entresto (Sacubitril-Valsartan) 24-26 Mg Tab 1 Tab PO BID Review of Systems Except as stated in HPI: all other systems reviewed are Neg General / Constitutional: No: Fever, Chills HENT: No: Headaches, Vertigo, Lightheadedness Cardiovascular: No: Chest Pain or Discomfort, Palpitations Respiratory: Positive: Shortness of Breath, No: Cough Gastrointestinal: Positive: Abdominal Pain (abdominal swelling), No: Nausea, Vomiting Musculoskeletal: Positive: Edema, No: Myalgias, Weakness Neurologic: Positive: Weakness, No: Headache Physical Exam Narrative GENERAL: Well-developed well-nourished female in no acute respiratory distress SKIN: Focused skin assessment warm/dry. HEAD: Atraumatic. Normocephalic. EYES: No scleral icterus. No injection or drainage. ENT: No nasal bleeding or discharge. Mucous membranes pink and moist. NECK: Trachea midline. No JVD. Supple CARDIOVASCULAR: Regular rate and rhythm. No gallops or ectopy. RESPIRATORY: No accessory muscle use. Clear to auscultation. Breath sounds equal bilaterally. GASTROINTESTINAL: Abdomen soft, non-tender, slightly distended. No rebound or guarding. MUSCULOSKELETAL: No obvious deformities. No clubbing. No cyanosis. 2+ pretibial edema. NEUROLOGICAL: Awake and alert. No obvious cranial nerve deficits. Motor grossly within normal limits. Normal speech. Data Data Last Documented VS Vital Signs Date Time Temp Pulse Resp B/P Pulse Ox O2 Delivery O2 Flow Rate FiO2 03/08/17 12:14 98 16 141/94 100 Room Air 03/08/17 08:52 97.9 Orders Electrocardiogram (03/08/17 ) Complete Blood Count With Diff (03/08/17 09:44) Comprehensive Metabolic Panel (03/08/17 09:44) Chest, Single Ap (03/08/17 09:44) Iv Access Insert/Monitor (03/08/17 09:44) Ecg Monitoring (03/08/17 09:44) Oximetry (03/08/17 09:44) Ed Urine Pregnancytest Poc (03/08/17 09:44) Vascular Access Team Consult/P PRN (03/08/17 09:44) Vascular Poc Ultrasound (03/08/17 ) Morphine Inj (Morphine Inj) (03/08/17 12:00) Ondansetron Inj (Zofran Inj) (03/08/17 12:00) Admit Order (Ed Use Only) (03/08/17 13:11) Labs Laboratory Tests Test 03/08/17 10:05 White Blood Count 6.7 TH/MM3 Red Blood Count 3.83 MIL/MM3 Hemoglobin 10.8 GM/DL Hematocrit 32.2 % Mean Corpuscular Volume 84.2 FL Mean Corpuscular Hemoglobin 28.2 PG Mean Corpuscular Hemoglobin 33.5 % Concent Red Cell Distribution Width 14.4 % Platelet Count 145 TH/MM3 Mean Platelet Volume 9.8 FL Neutrophils (%) (Auto) 75.6 % Lymphocytes (%) (Auto) 16.4 % Monocytes (%) (Auto) 4.4 % Eosinophils (%) (Auto) 2.6 % Basophils (%) (Auto) 1.0 % Neutrophils # (Auto) 5.0 TH/MM3 Lymphocytes # (Auto) 1.1 TH/MM3 Monocytes # (Auto) 0.3 TH/MM3 Eosinophils # (Auto) 0.2 TH/MM3 Basophils # (Auto) 0.1 TH/MM3 CBC Comment DIFF FINAL Differential Comment Sodium Level 143 MEQ/L Potassium Level 4.1 MEQ/L Chloride Level 110 MEQ/L Carbon Dioxide Level 22.7 MEQ/L Anion Gap 10 MEQ/L Blood Urea Nitrogen 28 MG/DL Creatinine 2.55 MG/DL Estimat Glomerular Filtration 22 ML/MIN Rate Random Glucose 184 MG/DL Calcium Level 8.1 MG/DL Total Bilirubin 0.3 MG/DL Aspartate Amino Transf 16 U/L (AST/SGOT) Alanine Aminotransferase 26 U/L (ALT/SGPT) Alkaline Phosphatase 109 U/L Total Protein 5.6 GM/DL Albumin 2.1 GM/DL MDM Medical Decision Making Medical Screen Exam Complete: Yes Emergency Medical Condition: Yes Differential Diagnosis Anasarca versus acute on chronic kidney disease versus CHF versus metabolic derangement Narrative Course 27-year-old female with unfortunate history of cardiomyopathy induced by 4 years prior, presents today with slight worsening edema of her extremity is. Patient has chronic kidney disease and is on Bumex. Despite being on Bumex, she still having worsening edema. Case was discussed with Dr. Ed Perry, [facility], who agreed to bring the patient under observation. He will likely get a broadcaster involve since she has the kidney disease that affects diuresis her. Diagnosis Primary Impression: worsening edema Additional Impressions: Diabetes type 2, controlled Chronic kidney disease Cardiomyopathy Admitting Information Admitting Physician Requests: Observation Elbert Johnston MD March 08, 2017 10:25
[2017-03-08 10:44] LABS: ANION GAP 10 MEQ/L (5-15); AST (GOT) 16 U/L (15-37); BICARBONATE 22.7 MEQ/L (21.0-32.0); BLOOD UREA NITROGEN 28 MG/DL (7-18); CHLORIDE 110 MEQ/L (98-107); GLOMERULAR FILTRATION RATE 22 ML/MIN (>89); POTASSIUM 4.1 MEQ/L (3.5-5.1); SODIUM (NA) 143 MEQ/L (136-145)
[2017-03-08 10:47] LABS: ALKALINE PHOSPHATASE 109 U/L (45-117); ALT (GPT) 26 U/L (10-53); TOTAL BILIRUBIN ADULT 0.3 MG/DL (0.2-1.0)
[2017-03-08] MEDS ORDERED: ONDANSETRON HCL 4 MG/2 ML VIAL IVP ONE (12:00)
[2017-03-08] MEDS ORDERED: MORPHINE SULFATE 4 MG/ML INJ IV ONE (12:00)
--- NOTE | 2017-03-08 13:27 | HHI.HP ---
[facility] Lucio Andrade DO Admission Diagnosis Worsening edema, chronic kidney disease, cardiomyopathy Diagnoses: (1) Dyspnea (2) Systolic CHF, chronic Chief Complaint: Shortness of breath Travel History International Travel<30 Days: No Contact w/Intl Traveler <30 Da: No Traveled to Known Affected Are: No History of Present Illness 27-year-old female with known history of cardiomyopathy with an ejection fraction of 10%, chronic kidney disease, CHF, chronic legs swelling present to the ED for evaluation of 4 day history of shortness of breath associate with bilateral lower extremities edema and per patient swelling from her waist down .patient reports being compliant with her medications states about a month ago she had her Bumex increased to 4 mg twice a day .she reports a baseline orthopnea but denies any chest pain. She has no GI bleed . She does have a history of chronic back pain for which she is on narcotics. Review of Systems Except as stated in HPI: all other systems reviewed are Neg Past Family Social History Past Medical History cardiomyopathy- EF 10-20% (ECHO 11/2016), on transplant list CKD- Baseline Cr 2.5-3 DM2, well-controlled Chronic low back pain Chronic pancreatitis- Past Surgical History AICD & defibrillator placement - patient had lead infection and required replacement of AICD Tubal ligation Cholecystectomy Tonsillectomy Reported Medications Bumex (Bumetanide) 2 Mg Tab 4 Mg PO BID Coreg (Carvedilol) 12.5 Mg Tab 25 Mg PO Q12HR Dilaudid (Hydromorphone HCl) 2 Mg Tab 2 Mg PO Q8H PRN Novolog Inj (Insulin Aspart) 1,000 Unit/10 Ml Vial 1-9 Units SQ ACHS Max dose at bedtime:( )units; sugars less than 70,(0)units; sugars 150-199,(1) unit; sugars 200-249,(3) units; sugars 250-299,(5) units; sugars 300-349,(7) units; sugars greater than 349,(9) units Reported Entresto (Sacubitril-Valsartan) 24-26 Mg Tab 1 Tab PO BID Allergies: Coded Allergies: Toradol (Verified Adverse Reaction, Mild, SHAKING, 02/27/17) Family History Mother - living, rheumatoid arthritis, hypertension Father- , pancreatitis Social History Lives with mother and daughter Tobacco: quit 2012, 1/2ppd prior Alcohol: none Illicit: quit , prior periodic marijuana use Physical Exam Vital Signs Vital Signs Date Time Temp Pulse Resp B/P Pulse Ox O2 Delivery O2 Flow Rate FiO2 03/08/17 12:14 98 16 141/94 100 Room Air 03/08/17 09:59 97 Room Air 03/08/17 09:12 93 16 138/83 100 03/08/17 08:52 97.9 103 16 172/102 99 Physical Exam GENERAL: This is a well-nourished, well-developed obese patient, in no apparent distress. SKIN: No rashes, ecchymoses or lesions. Cool and dry. HEAD: Atraumatic. Normocephalic. No temporal or scalp tenderness. EYES: Pupils equal round and reactive. Extraocular motions intact. No scleral icterus. No injection or drainage. ENT: Nose without bleeding, purulent drainage or septal hematoma. Throat without erythema, tonsillar hypertrophy or exudate. Uvula midline. Airway patent. NECK: Trachea midline. No JVD or lymphadenopathy. Supple, nontender, no meningeal signs. CARDIOVASCULAR: Regular rate and rhythm without murmurs, gallops, or rubs. RESPIRATORY: Clear to auscultation. Breath sounds equal bilaterally. No wheezes , rales, or rhonchi. GASTROINTESTINAL: Abdomen soft, non-tender, nondistended. No hepato-splenomegaly , or palpable masses. No guarding. MUSCULOSKELETAL: Extremities without clubbing, cyanosis; +Trace edema BLE. No joint tenderness, effusion, or edema noted. No calf tenderness. Negative Homans sign bilaterally. NEUROLOGICAL: Awake and alert. Cranial nerves II through XII intact. Motor and sensory grossly within normal limits. Five out of 5 muscle strength in all muscle groups. Normal speech. Laboratory Laboratory Tests Test 03/08/17 10:05 White Blood Count 6.7 Red Blood Count 3.83 Hemoglobin 10.8 Hematocrit 32.2 Mean Corpuscular Volume 84.2 Mean Corpuscular Hemoglobin 28.2 Mean Corpuscular Hemoglobin 33.5 Concent Red Cell Distribution Width 14.4 Platelet Count 145 Mean Platelet Volume 9.8 Neutrophils (%) (Auto) 75.6 Lymphocytes (%) (Auto) 16.4 Monocytes (%) (Auto) 4.4 Eosinophils (%) (Auto) 2.6 Basophils (%) (Auto) 1.0 Neutrophils # (Auto) 5.0 Lymphocytes # (Auto) 1.1 Monocytes # (Auto) 0.3 Eosinophils # (Auto) 0.2 Basophils # (Auto) 0.1 CBC Comment DIFF FINAL Differential Comment Sodium Level 143 Potassium Level 4.1 Chloride Level 110 Carbon Dioxide Level 22.7 Anion Gap 10 Blood Urea Nitrogen 28 Creatinine 2.55 Estimat Glomerular Filtration 22 Rate Random Glucose 184 Calcium Level 8.1 Total Bilirubin 0.3 Aspartate Amino Transf 16 (AST/SGOT) Alanine Aminotransferase 26 (ALT/SGPT) Alkaline Phosphatase 109 Total Protein 5.6 Albumin 2.1 Result Diagram: 03/08/17 1005 03/08/17 1005 Imaging Last Impressions Chest X-Ray 03/08/17 0944 Signed Impressions: Service Date/Time: Wednesday, March 08, 2017 09:40 - CONCLUSION: Compensated cardiomegaly otherwise negative Westley Cerna MD FACR Assessment and Plan Problem List: (1) Dyspnea ICD Code: R06.00 Status: Acute (2) Systolic CHF, chronic ICD Code: I50.22 Status: Acute Assessment and Plan 27-year-old female with History of chronic systolic CHF cardiomyopathy with EF of 10% Anasarca -Although patient reports being compliant with her medical care however this appears to be unlikely -Chest x-ray noted and review by me with finding of Compensated cardiomegaly otherwise negative. -Check BNP and consider limited 2-D echo -Treatment with IV diuretic, Entresto and caution d/t renal insufficiency -Strict I's and O's History of hypertension -Resume Coreg Chronic kidney disease stage III She is currently at her baseline Renal ultrasound Nephrology consultation pending Normochromic normocytic anemia H&H appears stable Check iron study and treat accordingly Thrombocytopenia Etiology at this point unknown; medication versus liver disease versus others Appears to be stable and monitor platelet count History of diabetes type 2 Diet control however with current elevated blood glucose will check A1c Start insulin sliding scale with fingerstick blood glucose monitoring History of chronic back pain Cautious with narcotics as patient with a component of drug-seeking behavior Encourage PT Anxiety Resume outpatient medication Code Status Full code Discussed Condition With Patient, ED physician Ed Perry MD March 08, 2017 13:27
[2017-03-08] MEDS ORDERED: ACETAMINOPHEN 325 MG TAB PO PRN ×2 (13:30)
[2017-03-08] MEDS ORDERED: NALOXONE HCL 0.4 MG/ML AMP IV PRN (13:30)
[2017-03-08] MEDS ORDERED: TEMAZEPAM 15 MG CAP PO PRN (13:30)
[2017-03-08] MEDS ORDERED: SODIUM CHLORIDE 0.9% FLUSH 10 ML FLUSH IV FLUSH PRN (13:30)
[2017-03-08] MEDS ORDERED: DEXTROSE 50% IN WATER 50 ML VIAL(D50) IV PRN (14:30)
[2017-03-08] MEDS ORDERED: FUROSEMIDE 20 MG/2 ML VIAL IV PUSH ONE (14:30)
[2017-03-08] MEDS ORDERED: RESP: ALBUTEROL 2.5 MG/IPRATROPIUM 0.5 MG NEB (PRN) NEB (14:30)
[2017-03-08] MEDS ORDERED: GLUCAGON 1 MG/ML VIAL OTHER PRN (14:30)
[2017-03-08] MEDS ORDERED: DILA2TAB2 PO (14:36)
[2017-03-08] MEDS ORDERED: ALPR.5 PO (14:37)
--- NOTE | 2017-03-08 15:39 | RADRPT ---
EXAM DATE/TIME: 03/08/2017 15:03 [place] COMPARISON: US KIDNEY/RENAL/BLADDER, December 01, 2016, 19:42. INDICATIONS : Increased BUN and creatnine. MEDICAL HISTORY : Congestive heart failure. Hypercholesterolemia. Pancreatitis. Chronic kidney di sease. UTI. Diabetes. Neuropathy. Cardiomyopathy. SURGICAL HISTORY : Tonsillectomy. Cholecystectomy. section. Pace maker. Cardiac cath. Tu bal ligation. ENCOUNTER: Sequela ACUITY: 1 day PAIN SCORE: 4/10 LOCATION: Bilateral flank MEASUREMENTS: RIGHT KIDNEY: 12.2 x 4.3 x 4.4 cm LEFT KIDNEY: 11.6 x 4.6 x 4.8 cm FINDINGS: The kidneys demonstrates increased echogenicity of the cortex compatible with medical renal disease. No hydronephrosis or mass lesions are identified. Small amount of free fluid is present in the pelvis . Bladder is decompressed CONCLUSION: Echogenic kidneys bilaterally compatible with medical renal disease. Sonido Sanches MD on March 08, 2017 at 15:36 Board Certified Radiologist. This report was verified electronically.
[2017-03-08 15:58] LABS: TRANSFERRIN IRON PROFILE 223 MG/DL (200-360)
[2017-03-08] MEDS ORDERED: INSULIN ASPART SUPPLEMENTAL SCALE SQ SCH (16:00)
[2017-03-08] MEDS ORDERED: BUMETANIDE 1 MG TAB PO SCH (18:00)
[2017-03-08] MEDS: ACETAMINOPHEN/HYDROcodone 325 MG/5 MG TAB PO PRN (18:04)
[2017-03-08] MEDS: BUMETANIDE INJ 1 MG/4 ML VIAL IV PUSH SCH (18:38)
--- NOTE | 2017-03-08 19:02 | MB ---
cc: RUI GAO MD DATE OF CONSULTATION 03/08/17 REASON FOR CONSULTATION Chronic kidney disease with elevated BUN and creatinine for evaluation. HISTORY OF PRESENT ILLNESS This is a 27-year-old female with past medical history of cardiomyopathy with low ejection fraction of 10%, history of chronic kidney disease, diabetes mellitus, low-back pain, chronic pancreatitis who came to the hospital complaining of worsening swelling and shortness of breath. I was called to see the patient for elevated BUN and creatinine. The patient has multiple admissions and the last time she was here last month her creatinine was 2.3-2.9 and it has been fluctuating in this range with some acute worsening. In November it was 4.1 and then it improved. The patient has not been following by any social problems specialist regularly. The last time she was here she was seen by me and then Dr. Hicks was following, but she did not make any appointments and seems like she is not very compliant with her medications, although when I ask her specifically she said that she has been taking her medications and also watching her diet. According to her the Bumex was not working well and her swelling was getting worse and breathing was getting worse, especially she was not able to lie flat. She was evaluated at [facility] for possible cardiac transplant and she was told to stabilize the heart with the medications to see if there was any improvement before they can consider her. This is all according to the patient. PAST MEDICAL HISTORY 1. cardiomyopathy with ejection fraction of 10-20%. 2. Chronic kidney disease, 3. Diabetes mellitus, 4. Chronic back pain. 5. History of pancreatitis. PAST SURGICAL HISTORY 1. AICD placement, 2. Cholecystectomy, 3. section, 4. Tubal ligation, 5. Tonsillectomy. REVIEW OF SYSTEMS The patient has generalized weakness, feeling tired. She has shortness of breath, especially on lying flat and on exertion. She noticed more swelling of her legs and her arms. There is no dysuria, hematuria but she did notice that she has decreased urine output. She denies taking any nonsteroidal anti-inflammatory drugs. She has been taking her Bumex 4 mg twice a day, not taking any nonsteroidal anti-inflammatory drugs. SOCIAL HISTORY The patient is single, lives with her parents. She has a history of smoking. Stopped in 2012. Occasionally uses marijuana. No heavy alcoholism. FAMILY HISTORY Noncontributory. ALLERGIES TORADOL MEDICATIONS Currently, she is on following medications 1. Bumex 4 mg p.o. b.i.d. 2. Entresto 1 tablet b.i.d. 3. Carvedilol 25 mg q. 12-hour. 4. Insulin aspart sliding scale. 5. Zofran as needed. 6. Restoril as needed. 7. Xanax as needed. 8. Joseph as needed PHYSICAL EXAMINATION GENERAL: On examination, the patient is awake, alert. She is not in acute distress. VITAL SIGNS: Her last blood pressure is 110/75. Her blood pressure was a little bit on the higher side when she came in. HEENT: Pupils equal reacting to light. Nonicteric sclerae. NECK: Supple. JVD is slightly elevated. LUNGS: The patient has bilateral decreased air entry with basilar rales. HEART: S1, S2 regular rhythm. ABDOMEN: Distended, soft, lax. There is no tenderness. EXTREMITIES: She has bilateral 2+ edema in the legs and some edema in the upper arms. LABORATORY DATA WBC count is 6.7, hemoglobin 10.8, platelet count 145, neutrophils 75.6%. Sodium 143. Potassium 4.1, chloride 110, bicarb 22.7, BUN 28, creatinine 2.5, glucose 184. Calcium 8.4. Iron saturation is 13.5, AST, ALT normal, BNP is 1493. Urinalysis showing proteinuria in the past, 300 to greater. Last 24-hour urine she has done was in 2013 and this was 4.5 grams. Her microalbumin to creatinine ratio was more than 8000. The HAMLET and ANCA were negative. Complements C3 was slightly low and C4 was normal. IMAGING STUDIES The patient had chest x-ray done which showed that the patient has compensated cardiomegaly. Ultrasound of the kidneys was done which showed that the patient has bilateral echogenic kidneys. ASSESSMENT/PLAN 1. Chronic kidney disease. 2. Cardiomyopathy 3. Diabetes mellitus 4. Fluid overload status 5. Anemia. 6. Hypertension The patient has chronic kidney disease and she has significant proteinuria. Her serology was negative for HAMLET and ANCA. At this point, she will need diuretics and if the creatinine remains stable, to consider to put her on NORMAN inhibitor or angiotensin receptor manjit. I will change Bumex to IV for better diuresis. Thank you for the consultation and I will follow the patient while she is in the hospital. MD PHYLLIS Valdes/ /5:40 PM /6:38 PM
[2017-03-08] MEDS: SACUBITRIL/VALSARTAN 24 MG-26 MG TAB PO SCH (19:55)
[2017-03-08] MEDS: CARVEDILOL 12.5 MG TAB PO SCH (19:56)
[2017-03-08] MEDS: SODIUM CHLORIDE 0.9% FLUSH 10 ML FLUSH IV FLUSH SCH (20:03)
[2017-03-08] MEDS: INSULIN ASPART SUPPLEMENTAL SCALE SQ SCH (20:04)
[2017-03-08] MEDS: ALPRAZolam 0.5 MG TAB PO PRN (20:11)
--- NOTE | 2017-03-08 20:54 | EKG ---
Date Performed: 03/08/2017 Time Performed: 09:55:47 PTAGE: 27 years EKG: Sinus rhythm LEFT VENTRICULAR HYPERTROPHY AND ST-T CHANGE ABNORMAL ECG PREVIOUS TRACING : 02/27/2017 22.35 Compared to prior tracing no significant change DOCTOR: Moise Blakely Interpretating Date/Time 03/08/2017 20:53:16
[2017-03-09] VITALS (8 sets, daily range): BP systolic 109–163; BP diastolic 64–119; PULSE 72–85; RESP 16–20; TEMP 98–98.7; O2SAT 93–98
[2017-03-09] MEDS: ACETAMINOPHEN/HYDROcodone 325 MG/5 MG TAB PO PRN ×3 (02:24→17:37)
[2017-03-09 04:18] LABS: AUTOMATED NEUTROPHIL # 2.5 TH/MM3 (1.8-7.7); BASOPHIL % 0.9 % (0.0-2.0); EOSINOPHIL # 0.1 TH/MM3 (0-0.4); EOSINOPHIL % 3.3 % (0.0-4.0); HEMATOCRIT 28.4 % (35.0-46.0); HEMO FLAGS DIFF FINAL; LYMPH % 31.7 % (9.0-44.0); LYMPHOCYTE # 1.4 TH/MM3 (1.0-4.8); MEAN CELL VOLUME 83.8 FL (80.0-100.0); MEAN CORPUSCULAR HEMOGLOBIN 28.5 PG (27.0-34.0); MONO % 5.3 % (0.0-8.0); NEUT % 58.8 % (16.0-70.0); PLATELET COUNT 133 TH/MM3 (150-450); RED BLOOD COUNT 3.39 MIL/MM3 (4.00-5.30); RED CELL DISTRIBUTION WIDTH 14.1 % (11.6-17.2); WHITE BLOOD COUNT 4.3 TH/MM3 (4.0-11.0)
[2017-03-09 04:38] LABS: ANION GAP 9 MEQ/L (5-15); AST (GOT) 15 U/L (15-37); BICARBONATE 24.2 MEQ/L (21.0-32.0); BLOOD UREA NITROGEN 31 MG/DL (7-18); CHLORIDE 108 MEQ/L (98-107); GLOMERULAR FILTRATION RATE 25 ML/MIN (>89); SODIUM (NA) 141 MEQ/L (136-145)
[2017-03-09 04:40] LABS: ALKALINE PHOSPHATASE 88 U/L (45-117); ALT (GPT) 21 U/L (10-53); TOTAL BILIRUBIN ADULT 0.3 MG/DL (0.2-1.0)
[2017-03-09] MEDS: INSULIN ASPART SUPPLEMENTAL SCALE SQ SCH ×4 (05:48→20:54)
[2017-03-09] MEDS: SACUBITRIL/VALSARTAN 24 MG-26 MG TAB PO SCH ×2 (09:00→20:14)
[2017-03-09] MEDS: ONDANSETRON HCL 4 MG/2 ML VIAL IVP PRN ×2 (10:52→18:19)
--- NOTE | 2017-03-09 10:54 | MB ---
cc: ANAND TOMPKINS MD DATE OF CONSULTATION: 03/09/2017 DATE OF : 1990 REASON FOR CONSULTATION Heart failure. HISTORY OF PRESENT ILLNESS Ms. Jones is a 27-year-old female who does have a history of a peripartum cardiomyopathy with a known EF of about 15%. She is status post a Biotronik ICD and reports that she follows up with my partner Dr. Cardoso. She notes that she has had some acute on chronic edema particularly in the abdomen and the extremities. She notes that she is having severe back pain as well. She sought attention in the hospital for her progressive heart failure. PAST MEDICAL HISTORY Significant for - 1. 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 She follows with Dr. Cardoso and also at the [facility] for a possible heart transplant. 2. Chronic kidney disease. 3. Diabetes. 4. Chronic back pain. 5. Pancreatitis. 6. Noncompliance. PAST SURGICAL HISTORY 1. ICD. 2. Cholecystectomy. 3. . 4. Tubal ligation. 5. Tonsillectomy. REVIEW OF SYSTEMS The patient has had fatigue and edema. Other than what is mentioned in the HPI, all 12 systems are negative. SOCIAL HISTORY The patient is a former smoker. FAMILY HISTORY Noncontributory. ALLERGIES TORADOL. OUTPATIENT MEDICATIONS 1. Bumex. 2. Coreg. 3. Zofran. 4. Restoril. 5. Xanax. 6. [place]. 7. The patient reports her Entresto has been on hold secondary to her renal insufficiency. PHYSICAL EXAMINATION VITAL SIGNS: 98.4, 72, 16, 109/71. GENERAL: She is an overweight female who is in no apparent distress. NECK: Her neck is free from JVD. LUNGS: The lungs are decreased and clear to auscultation. CARDIOVASCULAR: On cardiovascular examination, she has a normal S1 and S2. ABDOMEN: The abdomen is soft. EXTREMITIES: The extremities have a trace amount of edema. LABORATORY VALUES Lab values show a creatinine of 2.36. Her hemoglobin is 9.7 and BNP is 1493. IMAGING Chest x-ray from 03/08/17 shows compensated cardiomegaly and otherwise negative. IMPRESSIONS Acute on chronic systolic heart failure - the patient has had progressive symptoms. I suspect this is multifactorial given the cardiorenal syndrome and anemia. At this point, I would continue with her Coreg. The Entresto and Imdur NORMAN inhibitor is contraindicated with her renal insufficiency. Her fluids will be managed by Nephrology. I did discuss with her continuing on fluid and sodium restrictions which she said she has been following. Anemia - this does appear to be chronic. Consideration for further workup per the primary team as this is likely contributing to her dyspnea and fatigue. CKD - this being managed by the by Nephrology. Anand Tompkins M.D. MATIAS/BJF /9:59 AM /10:17 AM
[2017-03-09] MEDS: CARVEDILOL 12.5 MG TAB PO SCH ×2 (10:59→20:14)
[2017-03-09] MEDS: BUMETANIDE INJ 1 MG/4 ML VIAL IV PUSH SCH ×2 (11:00→18:24)
[2017-03-09] MEDS: SODIUM CHLORIDE 0.9% FLUSH 10 ML FLUSH IV FLUSH SCH ×2 (11:01→22:44)
--- NOTE | 2017-03-09 11:29 | HHI.PR ---
Subjective Remarks Follow up for CHF exacerbation. The patient reports continued shortness of breath however it is improving compared to her arrival. Also still with lower extremity edema up to the knees, also slowly improving. She reports intermittent chest heaviness, worse when attempting to lie flat, with orthopnea. She also reports acute on chronic back pain and is requesting her dilaudid that she takes at home. Upon review of [facility] [place] Prescription Drug Monitoring Website, patient only fills dilaudid prescriptions from different physicians in the hospital; only filling short course supply, last filled 7day supply of dilaudid 2mg tablets on 02/13/17. She states she has been trying to see her PCP Dr. Andrade or a pain management physician however has been unable to get an appointment. She states she has back pain since she had her epidural during delivery and the needle was "misplaced". She states she was on oxycodone 30mg in the past, however a physician in the hospital switched her to dilaudid po. Objective Vitals Vital Signs Date Time Temp Pulse Resp B/P Pulse Ox O2 Delivery O2 Flow Rate FiO2 03/09/17 07:24 98.4 72 16 109/71 98 03/09/17 03:33 98.4 80 18 135/75 96 03/08/17 23:39 98.3 71 19 138/76 98 03/08/17 19:24 98.5 94 19 130/97 100 03/08/17 15:16 99.4 91 18 110/75 96 03/08/17 14:00 94 16 129/80 98 Room Air 03/08/17 12:14 98 16 141/94 100 Room Air Result Diagram: 03/09/17 0335 03/09/17 0335 Imaging Last Impressions Chest X-Ray 03/08/17 0944 Signed Impressions: Service Date/Time: Wednesday, March 08, 2017 09:40 - CONCLUSION: Compensated cardiomegaly otherwise negative Westley Cerna MD FACR Renal Ultrasound 03/08/17 0000 Signed Impressions: Service Date/Time: Wednesday, March 08, 2017 15:03 - CONCLUSION: Echogenic kidneys bilaterally compatible with medical renal disease. Sonido Sanches MD Objective Remarks GENERAL: Well-nourished, well-developed young female patient in [facility]. SKIN: Warm and dry. No rash. HEENT: Normocephalic. Atraumatic.Pupils equal and round. Mucous membranes pink and moist. NECK: Supple. Trachea midline. CARDIOVASCULAR: Regular rate and rhythm. S1, S2 noted. Systolic murmur noted. RESPIRATORY: No accessory muscle use. Breath sounds slightly diminished at bilateral bases, otherwise clear to auscultation. Breath sounds equal bilaterally. GASTROINTESTINAL: Abdomen soft, non-tender, nondistended. Normoactive bowel sounds x4. MUSCULOSKELETAL: No obvious deformities. 2+ bilateral lower extremity pitting edema. NEUROLOGICAL: Awake and alert. No obvious cranial nerve deficits. Motor grossly within normal limits. Normal speech. PSYCHIATRIC: Appropriate mood and affect; insight and judgment normal. Medications and IVs Current Medications Medications (Trade) Dose Ordered Sig/Arnold Route Start Time Stop Time Status Last Admin (NS Flush) 2 ml UNSCH PRN IV FLUSH 03/08/17 13:30 (NS Flush) 2 ml BID IV FLUSH 03/08/17 21:00 03/08/17 20:03 (Tylenol) 650 mg Q4H PRN PO 03/08/17 13:30 (Zofran Inj) 4 mg Q6H PRN IVP 03/08/17 13:30 03/09/17 10:52 (Restoril) 15 mg HS PRN PO 03/08/17 13:30 (Tylenol) 650 mg Q6H PRN PO 03/08/17 13:30 (Narcan Inj) 0.4 mg UNSCH PRN IV 03/08/17 13:30 (Coreg) 25 mg Q12HR PO 03/08/17 21:00 03/08/17 19:56 (Entresto 24-26 Mg) 1 tab BID PO 03/08/17 21:00 03/08/17 19:55 (D50w (Vial) Inj) 50 ml UNSCH PRN IV 03/08/17 14:30 (Glucagon Inj) 1 mg UNSCH PRN OTHER 03/08/17 14:30 ([place] 5-325 Mg) 1 tab Q6H PRN PO 03/08/17 14:30 03/09/17 02:24 (Xanax) 0.5 mg Q12H PRN PO 03/08/17 14:30 03/08/17 20:11 (Bumex Inj) 2 mg BID@09,18 IV PUSH 03/08/17 18:00 03/08/17 18:38 A/P Problem List: (1) Dyspnea ICD Code: R06.00 Status: Acute (2) Systolic CHF, chronic ICD Code: I50.22 Status: Acute Assessment and Plan 27-year-old female with History of chronic systolic CHF, cardiomyopathy with EF of 10%, Anasarca -Although patient reports being compliant with her medical care however this appears to be unlikely -Chest x-ray noted and review by me with finding of Compensated cardiomegaly otherwise negative. -Last Echocardiogram 12/10/16 showed severely reduced systolic function with EF 15% -BNP elevated at 1493 -Continue diuresis with IV Bumex 2mg bid -patient reports her geophysicist Dr. Cardoso took her off Entrestro because of her kidney function -Strict I's and O's -Nephrology and Cardiology consulted, appreciate recommendations History of hypertension -Resume Coreg Chronic kidney disease stage III -She is currently at her baseline -Renal ultrasound showed echogenic kidneys bilaterally consistent with medical renal disease -Nephrology consulted, appreciate recommendations Normochromic normocytic anemia -H&H appears stable, no active signs of bleeding -Iron studies consistent with iron deficiency -start ferrous sulfate -monitor CBC Thrombocytopenia -Etiology at this point unknown; medication versus liver disease versus others -Appears to be stable and monitor platelet count History of diabetes type 2 -Diet control however with current elevated blood glucose will check A1c, pending -Start insulin sliding scale with fingerstick blood glucose monitoring History of chronic back pain -Cautious with narcotics as patient with a component of drug-seeking behavior -Upon review of [facility] [place] Prescription Drug Monitoring Website, patient only fills dilaudid prescriptions from different physicians in the hospital; only filling short course supply, last filled 7day supply of dilaudid 2mg tablets on 02/13/17. She states she has been trying to see her PCP Dr. Andrade or a pain management physician however has been unable to get an appointment. -Encourage PT -[place] prn Anxiety -Resume outpatient medication DVT Prophylaxis: Heparin Ailyn Roman PA-C March 09, 2017 11:29 am
[2017-03-09 13:30] LABS: HEMOGLOBIN A1a 0.9 %; HEMOGLOBIN A1b 0.7 %; HEMOGLOBIN Ao 84.5 %; HEMOGLOBIN F 1.5 %; HEMOGLOBIN LA1C 2.4 %; HEMOGLOBIN P3 5.4 %
--- NOTE | 2017-03-09 13:43 | HHI.NPPN ---
Subjective History of Present Illness 27-year-old female with past medical history of cardiomyopathy with low ejection fraction of 10%, history of chronic kidney disease, diabetes mellitus, low-back pain, chronic pancreatitis who came to the hospital complaining of worsening swelling and shortness of breath. I was called to see the patient for elevated BUN and creatinine. The patient has multiple admissions and the last time she was here last month her creatinine was 2.3-2.9 and it has been fluctuating in this range with some acute worsening. Additional Remarks Patient is alert, feeling better, mild SOB on exertion, not in distress. Review of Systems General Constitutional: Fatigue Respiratory Lungs: SOB, Cough Cardiovascular Cardiac: Edema, CONNORS Objective Data Data Vital Signs Date Time Temp Pulse Resp B/P Pulse Ox O2 Delivery O2 Flow Rate FiO2 03/09/17 12:05 20 03/09/17 11:43 98.3 77 18 110/72 98 03/09/17 07:24 98.4 72 16 109/71 98 03/09/17 03:33 98.4 80 18 135/75 96 03/08/17 23:39 98.3 71 19 138/76 98 03/08/17 19:24 98.5 94 19 130/97 100 03/08/17 15:16 99.4 91 18 110/75 96 03/08/17 14:00 94 16 129/80 98 Room Air -: 03/09/17 0335 03/09/17 0335 Physical Exam General Appearance: No Acute Distress, Comfortable Eyes Eye Exam: Pupils Equal Throat Throat Exam: Oral Mucosa Cutler & Moist Neck Neck Exam: Neck Supple Pulmonary Resp Exam: Crackles, Rhonchi, Decreased Bases, Diminished Breath Sounds Cardiology CV Exam: Regular, Normal Sinus Rhythm Gastrointestinal/Abdomen GI Exam: Soft, Non-Tender, Bowel Sounds Present Extremeties Extremities Exam: Moderate Edema, Pitting Edema Neurologic Neuro Exam: Alert, Awake, Oriented Psychiatric Psych Exam: Appropriate Responses Assessment/Plan Assessment Summary: Fluid/Volume Overload, CHF, CKD Stage IV Problem List: (1) Volume overload (2) History of CHF (congestive heart failure) (3) Non-ischemic cardiomyopathy (4) Proteinuria (5) Stage 4 chronic kidney disease Plan Patient has some improvement in the Creatinine. She has proteinuria, check 24 hr. urine protein. BP is stable. Continue Bumex, edema is better. Follow urine out put and BMP. Jeromy Allen MD March 09, 2017 13:43
[2017-03-09] MEDS: ALPRAZolam 0.5 MG TAB PO PRN (18:18)
[2017-03-09] MEDS: HEPARIN SODIUM - SQ 10,000 UNITS/ML VIAL SQ SCH (20:14)
[2017-03-09 23:11] LABS: AMPHETAMINE, URINE NEG (NEG); BARBITURATES, URINE NEG (NEG); COCAINE, URINE NEG (NEG)
[2017-03-10] MEDS: ACETAMINOPHEN/HYDROcodone 325 MG/5 MG TAB PO PRN ×2 (01:27→09:20)
[2017-03-10 04:11] VITALS: BP 117/86; PULSE 70; RESP 18; TEMP 97.9; O2SAT 98
[2017-03-10 05:58] LABS: AUTOMATED NEUTROPHIL # 3.2 TH/MM3 (1.8-7.7); BASOPHIL # 0.1 TH/MM3 (0-0.2); BASOPHIL % 1.2 % (0.0-2.0); EOSINOPHIL # 0.2 TH/MM3 (0-0.4); EOSINOPHIL % 3.3 % (0.0-4.0); HEMATOCRIT 32.4 % (35.0-46.0); HEMO FLAGS DIFF FINAL; LYMPH % 29.9 % (9.0-44.0); LYMPHOCYTE # 1.6 TH/MM3 (1.0-4.8); MEAN CELL VOLUME 84.9 FL (80.0-100.0); MONO % 4.9 % (0.0-8.0); NEUT % 60.7 % (16.0-70.0); PLATELET COUNT 150 TH/MM3 (150-450); RED BLOOD COUNT 3.81 MIL/MM3 (4.00-5.30); RED CELL DISTRIBUTION WIDTH 14.3 % (11.6-17.2); WHITE BLOOD COUNT 5.2 TH/MM3 (4.0-11.0)
[2017-03-10 06:04] LABS: BICARBONATE 24.9 MEQ/L (21.0-32.0); MAGNESIUM 1.8 MG/DL (1.5-2.5); POTASSIUM 4.1 MEQ/L (3.5-5.1)
[2017-03-10] MEDS: INSULIN ASPART SUPPLEMENTAL SCALE SQ SCH (07:00)
[2017-03-10 08:04] VITALS: BP 118/85; PULSE 79; RESP 18; TEMP 98.4; O2SAT 98
[2017-03-10] MEDS: SODIUM CHLORIDE 0.9% FLUSH 10 ML FLUSH IV FLUSH SCH (09:00)
[2017-03-10] MEDS: SACUBITRIL/VALSARTAN 24 MG-26 MG TAB PO SCH (09:00)
[2017-03-10] MEDS: CARVEDILOL 12.5 MG TAB PO SCH (09:19)
[2017-03-10] MEDS: HEPARIN SODIUM - SQ 10,000 UNITS/ML VIAL SQ SCH (09:22)
[2017-03-10] MEDS: BUMETANIDE INJ 1 MG/4 ML VIAL IV PUSH SCH (09:26)
--- NOTE | 2017-03-10 10:04 | HHI.PR ---
Subjective Remarks Follow up for CHF exacerbation. The patient reports her shortness of breath has improved. She has been able to ambulate the unit without difficulty. O2 sat stable on room air. The patient continues to report back pain worsened by the hospital bed, again asked for increased pain medications, discussed starting muscle relaxer while she is in the hospital, patient agrees. She is also very upset and tearful upon my arrival, states she just found out her parents are bringing her 4-year-old daughter into the hospital because she stopped breathing. The patient would like to be discharge today. She did not start collecting her 24hr urine protein until 9pm last night. Objective Vitals Vital Signs Date Time Temp Pulse Resp B/P Pulse Ox O2 Delivery O2 Flow Rate FiO2 03/10/17 08:04 98.4 79 18 118/85 98 03/10/17 04:11 97.9 70 18 117/86 98 03/09/17 23:11 98.4 78 20 112/78 98 03/09/17 20:59 98.0 82 19 127/64 93 03/09/17 20:57 18 03/09/17 20:03 98.7 85 19 111/70 97 03/09/17 18:24 20 03/09/17 17:59 98.6 80 18 163/119 97 03/09/17 15:35 98.6 85 18 121/77 98 03/09/17 11:43 98.3 77 18 110/72 98 I/O 03/09/17 03/09/17 03/09/17 03/10/17 03/10/17 03/10/17 07:00 15:00 23:00 07:00 15:00 23:00 Intake Total 600 ml 400 ml 550 ml Balance 600 ml 400 ml 550 ml Intake Oral 600 ml 400 ml 550 ml # Voids 5 # Bowel Movements 0 Result Diagram: 03/10/17 0400 03/10/17 0400 Imaging Last Impressions Chest X-Ray 03/08/17 0944 Signed Impressions: Service Date/Time: Wednesday, March 08, 2017 09:40 - CONCLUSION: Compensated cardiomegaly otherwise negative Westley Cerna MD FACR Renal Ultrasound 03/08/17 0000 Signed Impressions: Service Date/Time: Wednesday, March 08, 2017 15:03 - CONCLUSION: Echogenic kidneys bilaterally compatible with medical renal disease. Sonido Sanches MD Objective Remarks GENERAL: Well-nourished, well-developed young female patient in [facility]. SKIN: Warm and dry. No rash. HEENT: Normocephalic. Atraumatic.Pupils equal and round. Mucous membranes pink and moist. NECK: Supple. Trachea midline. CARDIOVASCULAR: Regular rate and rhythm. S1, S2 noted. Systolic murmur noted. RESPIRATORY: No accessory muscle use. Breath sounds slightly diminished at bilateral bases, otherwise clear to auscultation. Breath sounds equal bilaterally. GASTROINTESTINAL: Abdomen soft, non-tender, nondistended. Normoactive bowel sounds x4. MUSCULOSKELETAL: No obvious deformities. 1+ bilateral lower extremity pitting edema. NEUROLOGICAL: Awake and alert. No obvious cranial nerve deficits. Motor grossly within normal limits. Normal speech. PSYCHIATRIC: Appropriate mood and affect; insight and judgment normal. Medications and IVs Current Medications Medications (Trade) Dose Ordered Sig/Arnold Route Start Time Stop Time Status Last Admin (NS Flush) 2 ml UNSCH PRN IV FLUSH 03/08/17 13:30 (NS Flush) 2 ml BID IV FLUSH 03/08/17 21:00 03/09/17 22:44 (Tylenol) 650 mg Q4H PRN PO 03/08/17 13:30 (Zofran Inj) 4 mg Q6H PRN IVP 03/08/17 13:30 03/09/17 18:19 (Restoril) 15 mg HS PRN PO 03/08/17 13:30 03/09/17 22:44 (Tylenol) 650 mg Q6H PRN PO 03/08/17 13:30 03/09/17 20:15 (Narcan Inj) 0.4 mg UNSCH PRN IV 03/08/17 13:30 (Coreg) 25 mg Q12HR PO 03/08/17 21:00 03/10/17 09:19 (Entresto 24-26 Mg) 1 tab BID PO 03/08/17 21:00 03/09/17 20:14 (D50w (Vial) Inj) 50 ml UNSCH PRN IV 03/08/17 14:30 (Glucagon Inj) 1 mg UNSCH PRN OTHER 03/08/17 14:30 ([place] 5-325 Mg) 1 tab Q6H PRN PO 03/08/17 14:30 03/10/17 09:20 (Xanax) 0.5 mg Q12H PRN PO 03/08/17 14:30 03/09/17 18:18 (Bumex Inj) 2 mg BID@,18 IV PUSH 03/08/17 18:00 03/10/17 09:26 (Heparin Inj) 5,000 units Q12HR SQ 03/09/17 21:00 03/10/17 09:22 A/P Problem List: (1) Dyspnea ICD Code: R06.00 Status: Acute (2) Systolic CHF, chronic ICD Code: I50.22 Status: Acute Assessment and Plan 27-year-old female with Acute on chronic systolic CHF, cardiomyopathy with EF of 10%, Anasarca -Although patient reports being compliant with her medical care however this appears to be unlikely -Chest x-ray review by me with finding of Compensated cardiomegaly otherwise negative. -Last Echocardiogram 12/10/16 showed severely reduced systolic function with EF 15% -BNP elevated at 1493 -Continue diuresis with IV Bumex 2mg bid -patient reports her verifying specialist Dr. Cardoso took her off Entrestro because of her kidney function -Strict I's and O's -Nephrology and Cardiology consulted, appreciate recommendations -patient much improved, O2 sat stable on room air, ambulating the unit without difficulty, stable for d/c if ok with nephrology History of hypertension -Resume Coreg Chronic kidney disease stage III -She is currently at her baseline -Renal ultrasound showed echogenic kidneys bilaterally consistent with medical renal disease -Nephrology consulted, appreciate recommendations -24hr urine protein ordered Normochromic normocytic anemia, likely anemia of chronic disease secondary to CKD -H&H appears stable, no active signs of bleeding -Iron studies consistent with iron deficiency -start ferrous sulfate -monitor CBC -check stool hemoccult although patient denies melena/hematochezia Thrombocytopenia -Etiology at this point unknown; medication versus liver disease versus others -Appears to be stable and monitor platelet count History of diabetes type 2 -Diet control however with current elevated blood glucose checked HgbA1c which was 5.6 -Discontinued Accu-cheks and SSI History of chronic back pain -Cautious with narcotics as patient with a component of drug-seeking behavior -Upon review of [employer] [place] Prescription Drug Monitoring Website, patient only fills dilaudid prescriptions from different physicians in the hospital; only filling short course supply, last filled 7day supply of dilaudid 2mg tablets on 02/13/17. She states she has been trying to see her PCP Dr. Andrade or a pain management physician however has been unable to get an appointment. -Encourage PT -[place] prn, added Flexeril prn and heating pad Anxiety -Resume outpatient medication DVT Prophylaxis: Heparin Discharge Planning Likely discharge today if ok with nephrology. Ailyn Roman PA-C March 10, 2017 10:04 am
--- NOTE | 2017-03-10 10:39 | HHI.NPPN ---
Subjective History of Present Illness 27-year-old female with past medical history of cardiomyopathy with low ejection fraction of 10%, history of chronic kidney disease, diabetes mellitus, low-back pain, chronic pancreatitis who came to the hospital complaining of worsening swelling and shortness of breath. I was called to see the patient for elevated BUN and creatinine. The patient has multiple admissions and the last time she was here last month her creatinine was 2.3-2.9 and it has been fluctuating in this range with some acute worsening. Additional Remarks Patient is alert, breathing is better and swelling decreasing. Review of Systems General Constitutional: Fatigue Respiratory Lungs: SOB, Cough Cardiovascular Cardiac: Edema, CONNORS Objective Data Data 03/09/17 03/10/17 19:00 07:00 Intake Total 600 ml 400 ml Balance 600 ml 400 ml Intake Oral 600 ml 400 ml # Voids 5 # Bowel Movements 0 Vital Signs Date Time Temp Pulse Resp B/P Pulse Ox O2 Delivery O2 Flow Rate FiO2 03/10/17 08:04 98.4 79 18 118/85 98 03/10/17 04:11 97.9 70 18 117/86 98 03/09/17 23:11 98.4 78 20 112/78 98 03/09/17 20:59 98.0 82 19 127/64 93 03/09/17 20:57 18 03/09/17 20:03 98.7 85 19 111/70 97 03/09/17 18:24 20 03/09/17 17:59 98.6 80 18 163/119 97 03/09/17 15:35 98.6 85 18 121/77 98 03/09/17 11:43 98.3 77 18 110/72 98 -: 03/10/17 0400 03/10/17 0400 Physical Exam General Appearance: No Acute Distress, Comfortable Eyes Eye Exam: Pupils Equal Throat Throat Exam: Oral Mucosa [place] & Moist Neck Neck Exam: Neck Supple Pulmonary Resp Exam: Crackles, Rhonchi, Decreased Bases, Diminished Breath Sounds Cardiology CV Exam: Regular, Normal Sinus Rhythm Gastrointestinal/Abdomen GI Exam: Soft, Non-Tender, Bowel Sounds Present Extremeties Extremities Exam: Moderate Edema, Pitting Edema Neurologic Neuro Exam: Alert, Awake, Oriented Psychiatric Psych Exam: Appropriate Responses Assessment/Plan Assessment Summary: Fluid/Volume Overload, CHF, CKD Stage IV Problem List: (1) Volume overload (2) History of CHF (congestive heart failure) (3) Non-ischemic cardiomyopathy (4) Proteinuria (5) Stage 4 chronic kidney disease Plan Patient has stable Creatinine. Urine out put is adequate and edema decreasing. She has proteinuria, 24 hr. urine protein in progress. BP is stable. Continue Bumex, can change to PO. Told the patient to be more compliant with salt and fluid intake. If discharge, will need out patient follow up with Nephrology. Jeromy Allen MD March 10, 2017 10:39
[2017-03-10] MEDS ORDERED: CYCLOBENZAPRINE HCL 10 MG TAB PO ONE (10:45)
[2017-03-10] MEDS ORDERED: PILL SPLITTER OTHER PRN (10:45)
[2017-03-10] MEDS: ALPRAZolam 0.5 MG TAB PO PRN (11:40)
[2017-03-10] MEDS ORDERED: FERROUS SULFATE 325 MG (65 MG ELEMENTAL IRON) TAB PO SCH (12:00)
[2017-03-10 12:15] VITALS: BP 117/76; PULSE 77; RESP 18; TEMP 98.8; O2SAT 98
--- NOTE | 2017-03-10 12:39 | PD.CARD.PN ---
Subjective Subjective Remarks Pt reports feeling better Objective Medications Current Medications Medications (Trade) Dose Ordered Sig/Arnold Route Start Time Stop Time Status Last Admin (NS Flush) 2 ml UNSCH PRN IV FLUSH 03/08/17 13:30 (NS Flush) 2 ml BID IV FLUSH 03/08/17 21:00 03/09/17 22:44 (Tylenol) 650 mg Q4H PRN PO 03/08/17 13:30 (Zofran Inj) 4 mg Q6H PRN IVP 03/08/17 13:30 03/09/17 18:19 (Restoril) 15 mg HS PRN PO 03/08/17 13:30 03/09/17 22:44 (Tylenol) 650 mg Q6H PRN PO 03/08/17 13:30 03/09/17 20:15 (Narcan Inj) 0.4 mg UNSCH PRN IV 03/08/17 13:30 (Coreg) 25 mg Q12HR PO 03/08/17 21:00 03/10/17 09:19 ([place] 5-325 Mg) 1 tab Q6H PRN PO 03/08/17 14:30 03/10/17 09:20 (Xanax) 0.5 mg Q12H PRN PO 03/08/17 14:30 03/10/17 11:40 (Bumex Inj) 2 mg BID@ IV PUSH 03/08/17 18:00 03/10/17 09:26 (Heparin Inj) 5,000 units Q12HR SQ 03/09/17 21:00 03/10/17 09:22 (Flexeril) 5 mg Q8H PRN PO 03/10/17 19:00 (Ferrous Sulfate) 325 mg BID@ PO 03/10/17 12:00 03/10/17 11:40 (Pill Splitter) 1 ea UNSCH PRN OTHER 03/10/17 10:45 Vital Signs / I&O Vital Signs Date Time Temp Pulse Resp B/P Pulse Ox O2 Delivery O2 Flow Rate FiO2 03/10/17 12:15 98.8 77 18 117/76 98 03/10/17 10:20 20 03/10/17 08:04 98.4 79 18 118/85 98 03/10/17 04:11 97.9 70 18 117/86 98 03/09/17 23:11 98.4 78 20 112/78 98 03/09/17 20:59 98.0 82 19 127/64 93 03/09/17 20:57 18 03/09/17 20:03 98.7 85 19 111/70 97 03/09/17 17:59 98.6 80 18 163/119 97 03/09/17 15:35 98.6 85 18 121/77 98 I/O 03/09/17 03/09/17 03/09/17 03/10/17 03/10/17 03/10/17 07:00 15:00 23:00 07:00 15:00 23:00 Intake Total 600 ml 400 ml 550 ml Balance 600 ml 400 ml 550 ml Intake Oral 600 ml 400 ml 550 ml # Voids 5 # Bowel Movements 0 Physical Exam GENERAL: Well developed, well nourished. No acute distress. HEENT: Jugular venous pressure is normal. CHEST: Lungs clear to auscultation bilaterally. Unlabored respiratory effort. CARDIAC: Regular rate and rhythm without S3, S4, or murmur. ABDOMEN: Soft, nontender, EXTREMITIES: No clubbing, cyanosis, or edema. Laboratory Laboratory Tests Test 03/09/17 03/10/17 21:15 04:00 Urine Opiates Screen NEG Urine Barbiturates Screen NEG Urine Amphetamines Screen NEG Urine Benzodiazepines Screen NEG Urine Cocaine Screen NEG Urine Cannabinoids Screen POS White Blood Count 5.2 TH/MM3 Red Blood Count 3.81 MIL/MM3 Hemoglobin 10.7 GM/DL Hematocrit 32.4 % Mean Corpuscular Volume 84.9 FL Mean Corpuscular Hemoglobin 28.0 PG Mean Corpuscular Hemoglobin 33.0 % Concent Red Cell Distribution Width 14.3 % Platelet Count 150 TH/MM3 Mean Platelet Volume 10.5 FL Neutrophils (%) (Auto) 60.7 % Lymphocytes (%) (Auto) 29.9 % Monocytes (%) (Auto) 4.9 % Eosinophils (%) (Auto) 3.3 % Basophils (%) (Auto) 1.2 % Neutrophils # (Auto) 3.2 TH/MM3 Lymphocytes # (Auto) 1.6 TH/MM3 Monocytes # (Auto) 0.3 TH/MM3 Eosinophils # (Auto) 0.2 TH/MM3 Basophils # (Auto) 0.1 TH/MM3 CBC Comment DIFF FINAL Differential Comment Sodium Level 142 MEQ/L Potassium Level 4.1 MEQ/L Chloride Level 108 MEQ/L Carbon Dioxide Level 24.9 MEQ/L Anion Gap 9 MEQ/L Blood Urea Nitrogen 38 MG/DL Creatinine 2.47 MG/DL Estimat Glomerular Filtration 23 ML/MIN Rate Random Glucose 138 MG/DL Calcium Level 8.2 MG/DL Magnesium Level 1.8 MG/DL Assessment and Plan Assessment and Plan CHF- doing better, edema resolved -pt requesting d/c, reasonable from CV perspective - continue present med -fluid and sodium caps discussed Renal insufficiency - per renal Kelsie Tompkins MD March 10, 2017 12:39
[2017-03-10] MEDS ORDERED: BUME1TAB28 PO (14:14)
[2017-03-10] MEDS ORDERED: CYCL1TAB29 PO (14:14)
[2017-03-10] MEDS ORDERED: FERR325T PO (14:14)
--- NOTE | 2017-03-10 14:15 | HHI.DCPOC ---
Discharge Care Plan Diagnosis: (1) Systolic CHF, acute on chronic (2) Stage 4 chronic kidney disease (3) Volume overload (4) Dyspnea Goals to Promote Your Health * To prevent worsening of your condition and complications * To maintain your health at the optimal level Directions to Meet Your Goals Take your medications as prescribed Follow your dietary instruction Follow activity as directed Keep your appointments as scheduled Take your immunizations and boosters as scheduled If your symptoms worsen call your PCP, if no PCP go to Urgent Care Center or Emergency Room Smoking is Dangerous to Your Health. Avoid second hand smoke Call the 24-hour hour crisis hotline for domestic abuse at Ailyn Roman PA-C March 10, 2017 2:15 pm
--- NOTE | 2017-03-10 15:57 | HHI.DS ---
cc: Dr. Lucio Andrade; Jeromy Allen MD; Leona Cardoso MD Discharge Summary Admission Date March 08, 2017 at 1:13 pm Discharge Date: March 10, 2017 Admitting Diagnosis Worsening edema, chronic kidney disease, cardiomyopathy (1) Dyspnea ICD Code: R06.00 Diagnosis: Principal (2) Volume overload ICD Code: E87.70 Diagnosis: Principal (3) Stage 4 chronic kidney disease ICD Code: N18.4 Diagnosis: Principal (4) Acute on chronic systolic (congestive) heart failure ICD Code: I50.23 Diagnosis: Principal (5) Proteinuria ICD Code: R80.9 Diagnosis: Secondary (6) Non-ischemic cardiomyopathy ICD Code: I42.8 Diagnosis: Secondary Procedures None. Brief History - From Admission 27-year-old female with known history of cardiomyopathy with an ejection fraction of 10%, chronic kidney disease, CHF, chronic legs swelling present to the ED for evaluation of 4 day history of shortness of breath associate with bilateral lower extremities edema and per patient swelling from her waist down .patient reports being compliant with her medications states about a month ago she had her Bumex increased to 4 mg twice a day .she reports a baseline orthopnea but denies any chest pain. She has no GI bleed . She does have a history of chronic back pain for which she is on narcotics. CBC/BMP: 03/10/17 0400 03/10/17 0400 Significant Findings Laboratory Tests Test 03/08/17 03/09/17 03/09/17 03/10/17 10:05 03:35 21:15 04:00 Red Blood Count 3.83 MIL/MM3 3.39 MIL/MM3 3.81 MIL/MM3 (4.00-5.30) (4.00-5.30) (4.00-5.30) Hemoglobin 10.8 GM/DL 9.7 GM/DL 10.7 GM/DL (11.6-15.3) (11.6-15.3) (11.6-15.3) Hematocrit 32.2 % 28.4 % 32.4 % (35.0-46.0) (35.0-46.0) (35.0-46.0) Platelet Count 145 TH/MM3 133 TH/MM3 (150-450) (150-450) Neutrophils (%) (Auto) 75.6 % (16.0-70.0) Chloride Level 110 MEQ/L 108 MEQ/L 108 MEQ/L (98-107) (98-107) (98-107) Blood Urea Nitrogen 28 MG/DL (7-18) 31 MG/DL (7-18) 38 MG/DL (7-18) Creatinine 2.55 MG/DL 2.36 MG/DL 2.47 MG/DL (0.50-1.00) (0.50-1.00) (0.50-1.00) Estimat Glomerular Filtration 22 ML/MIN (>89) 25 ML/MIN (>89) 23 ML/MIN (>89) Rate Random Glucose 184 MG/DL 151 MG/DL 138 MG/DL (74-106) (74-106) (74-106) Calcium Level 8.1 MG/DL 8.1 MG/DL 8.2 MG/DL (8.5-10.1) (8.5-10.1) (8.5-10.1) Iron Level 42 MCG/DL (50-170) Percent Iron Saturation 13.5 % (20-50) B-Type Natriuretic Peptide 1493 PG/ML (0-100) Total Protein 5.6 GM/DL 4.8 GM/DL (6.4-8.2) (6.4-8.2) Albumin 2.1 GM/DL 1.8 GM/DL (3.4-5.0) (3.4-5.0) Urine Cannabinoids Screen POS (NEG) Imaging Last Impressions Chest X-Ray 03/08/17 0944 Signed Impressions: Service Date/Time: Wednesday, March 08, 2017 09:40 - CONCLUSION: Compensated cardiomegaly otherwise negative Westley Cerna MD FACR Renal Ultrasound 03/08/17 0000 Signed Impressions: Service Date/Time: Wednesday, March 08, 2017 15:03 - CONCLUSION: Echogenic kidneys bilaterally compatible with medical renal disease. Sonido Sanches MD PE at Discharge GENERAL: Well-nourished, well-developed young female patient in NAD. SKIN: Warm and dry. No rash. HEENT: Normocephalic. Atraumatic.Pupils equal and round. Mucous membranes pink and moist. NECK: Supple. Trachea midline. CARDIOVASCULAR: Regular rate and rhythm. S1, S2 noted. Systolic murmur noted. RESPIRATORY: No accessory muscle use. Breath sounds slightly diminished at bilateral bases, otherwise clear to auscultation. Breath sounds equal bilaterally. GASTROINTESTINAL: Abdomen soft, non-tender, nondistended. Normoactive bowel sounds x4. MUSCULOSKELETAL: No obvious deformities. 1+ bilateral lower extremity pitting edema. NEUROLOGICAL: Awake and alert. No obvious cranial nerve deficits. Motor grossly within normal limits. Normal speech. PSYCHIATRIC: Appropriate mood and affect; insight and judgment normal. Hospital Course 27-year-old female with Acute on chronic systolic CHF, nonischemic cardiomyopathy with EF of 15%, Anasarca -Although patient reports being compliant with her medical care however this appears to be unlikely -Chest x-ray review by me with finding of Compensated cardiomegaly otherwise negative. 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 because of her kidney function -Monitored Strict I's and O's -Nephrology and Cardiology consulted, agrees with diuresis and medical management -patient much improved, O2 sat stable on room air, ambulating the unit without difficulty, stable for d/c, cleared by cardiology and nephrology History of hypertension -Resume Coreg, BP well controlled Chronic kidney disease stage IV -She is currently at her baseline -Renal ultrasound showed echogenic kidneys bilaterally consistent with medical renal disease -Nephrology consulted, continued diuresis with IV Bumex as above -24hr urine protein ordered and pending at time of discharge -nephrology cleared for discharge with outpatient f/up Normochromic normocytic anemia, likely anemia of chronic disease secondary to CKD -H&H appears stable, no active signs of bleeding -Iron studies consistent with iron deficiency -started ferrous sulfate -monitor CBC -check stool hemoccult although patient denies melena/hematochezia; no BM to provide stool sample Thrombocytopenia -Etiology at this point unknown; medication versus kidney disease -Appears to be stable, and monitor platelet count History of diabetes type 2 -Diet control however with current elevated blood glucose checked HgbA1c which was 5.6 -Discontinued Accu-cheks and SSI -well controlled History of chronic back pain -Cautious with narcotics as patient with a component of drug-seeking behavior -Upon review of [employer] [place] Prescription Drug Monitoring Website, patient only fills dilaudid prescriptions from different physicians in the hospital; only filling short course supply, last filled 7day supply of dilaudid 2mg tablets on 02/13/17. She states she has been trying to see her PCP Dr. Andrade or a pain management physician however has been unable to get an appointment. -Encourage PT -[place] prn, added Flexeril prn and heating pad -discussed with patient on 2 separate occasions, will not be increasing pain medications or adding Dilaudid, patient unhappy but agrees to this plan Anxiety -Resume outpatient medication DVT Prophylaxis: Heparin Pt Condition on Discharge: Stable Discharge Disposition: Discharge Home Discharge Time: > 30 minutes Discharge Instructions DIET: Follow Instructions for: Heart Healthy Diet, Low Sodium Diet Additional Diet Instructions: Restrictions: less than 2GM sodium per day and less than 1500ml per day Fluid Restrictions: 1500ml per day Activities you can perform: Regular-No Restrictions Follow up Referrals: Cardiology - 1 Week with Leona Cardoso MD Nephrology - 1 Week with Jeromy Allen MD PCP Follow-up - 2-3 Days with Lucio Andrade DO New Medications: Cyclobenzaprine (Flexeril) 10 Mg Tab 5 MG PO Q8H PRN muscle spasms #15 TAB Ferrous Sulfate (Ferrous Sulfate) 325 Mg Tab 325 MG PO BID@12,17 iron replacement #60 TAB Changed Medications: Bumetanide (Bumex) 2 Mg Tab 2 MG PO BID CMP #60 Ref 0 TAB (Changed from: 4 MG; 120) Continued Medications: Alprazolam (Xanax) 0.5 Mg Tab 0.5 MG PO BID PRN ANXIETY Ref 0 TAB Carvedilol (Coreg) 12.5 Mg Tab 25 MG PO Q12HR CMP #120 TAB Discontinued Medications: Hydromorphone (Dilaudid) 2 Mg Tab 2 MG PO Q4-6H PRN Pain Management Ref 0 TAB Insulin Aspart Inj (Novolog Inj) 1,000 Unit/10 Ml Vial 1-9 UNITS SQ ACHS Max dose at bedtime:( )units; sugars less than 70,(0)units; sugars 150-199,(1) unit; sugars 200-249,(3) units; sugars 250-299,(5) units; sugars 300-349,(7) units; sugars greater than 349,(9) units Blood Sugar Management #10 Ref 0 ML Ailyn Roman PA-C March 10, 2017 3:57 pm
[2017-03-10] MEDS ORDERED: CYCLOBENZAPRINE HCL 10 MG TAB PO PRN (19:00)
[2017-03-10 19:14] LABS: URINE TOTAL PROTEIN TIMED 217.2 MG/DL
== END 2017-03-10 15:49 | disposition home or self-care (01) ==
LOC: NEPC 08:50 → NEDA 13:13 → NEPFCDU 14:44 → NEPGCP 21:10
PROVIDERS: ADMIT Internal Medicine; ATTEND Internal Medicine
DX: I13.0 Hypertensive heart and chronic kidney disease with heart failure and stage 1 through stage 4 chronic kidney disease, or unspecified chronic kidney disease (principal); I50.23 Acute on chronic systolic (congestive) heart failure; E11.22 Type 2 diabetes mellitus with diabetic chronic kidney disease; N18.4 Chronic kidney disease, stage 4 (severe); I50.9 Heart failure, unspecified; I42.9 Cardiomyopathy, unspecified; D64.9 Anemia, unspecified; D69.6 Thrombocytopenia, unspecified; G89.29 Other chronic pain; M54.5 Low back pain; R80.9 Proteinuria, unspecified; F41.9 Anxiety disorder, unspecified; E11.40 Type 2 diabetes mellitus with diabetic neuropathy, unspecified; Z95.0 Presence of cardiac pacemaker; Z79.4 Long term (current) use of insulin; Z88.8 Allergy status to other drugs, medicaments and biological substances; Z87.891 Personal history of nicotine dependence; Z76.5 Malingerer [conscious simulation]
CPT/HCPCS: 71010; 76775; 76937; 80048; 80053; 80307; 82948; 83036; 83540; 83550; 83735; 83880; 84100; 84157; 84703; 85025; 93005; 96374; 96375; 97162; 99285; G0378; G8987; G8988; J1644; J1815; J1940; J2270; J2405

== ENCOUNTER 2017-03-12 21:54 | Emergency (ER) | payer MEDICARE, MEDICAID ==
[~2017-03-12] VITALS: Ht 170.2 cm; Wt 90.0 kg
[~2017-03-12 21:54] MED LIST changes: +ALPR.5 PO; +CYCL1TAB29 PO; -DILA2TAB2 PO; +FERR325T PO; -NOVOLOGP2 SQ; -SACU1TAB PO
[2017-03-12 21:56] VITALS: BP 154/90; PULSE 104; RESP 16; TEMP 98.7; O2SAT 96
[2017-03-12] MEDS ORDERED: NITROGLYCERIN 2% OINT 1 GM PACKET TOP ONE (22:15)
[2017-03-12] MEDS ORDERED: ONDANSETRON HCL 4 MG/2 ML VIAL IV PUSH ONE (22:30)
[2017-03-12] MEDS ORDERED: PANTOPRAZOLE SODIUM 40 MG VIAL IV PUSH ONE (22:30)
[2017-03-12] MEDS ORDERED: SODIUM CHLOR 0.9% 250 ML INJ 250 ML IV ONE (22:30)
--- NOTE | 2017-03-12 22:30 | PD ---
HPI Chief Complaint: Chest Pain Time Seen by Provider: 21:58 Travel History International Travel<30 days: No Contact w/Intl Traveler<30days: No Traveled to known affect area: No History of Present Illness HPI The patient is a 27 year old female who presents to the [facility] emergency department with a history of chest pain that she reports began on Saturday evening. She is unsure of the exact time. She reports that the pain has however been constant. She reports that she has not taken any pain medication as she is low on her hydromorphone prescription. She is prescribed this reportedly for chronic pain. The patient reports that the pain is in the left side of her chest underneath her left breast. The patient reports that the pain is worse with touching the area. The patient reports that the pain is worse with taking a deep breath. She reports that it causes her to feel short of breath. She denies having any worsening lower extremity edema, calf pain, or erythema. She has been taking her diuretic, Bumex as prescribed. She reports that 2 weeks ago she did fall and landed on her left side, near this area. The patient reports that since yesterday she had a cough productive of green sputum. She reports that she's had chills and a subjective fever. She reports that she's had nausea and vomiting since yesterday 6 times. She denies having any diarrhea. Her last bowel movement was earlier today. She denies having any blood in her stool. The patient's past medical history is complicated by developing a cardiomyopathy with an ejection fraction between 10 and 20% on her last echo done in November 2016. 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 Garcia. I review of systems, the patient denies any neck pain, abdominal pain, vomiting, diarrhea, urinary symptoms, or neurologic symptoms. LMP: Last menstrual cycle ended 2 days ago [facility] Past Medical History Narrative Medical The patient's past medical history is significant for congestive heart failure related to cardiomyopathy after delivery in January 2013, history of chronic renal insufficiency with a baseline creatinine of 2.5-3, history of diabetes mellitus, history of chronic low back pain, history of chronic pancreatitis. The patient's primary care physician is Dr. Andrade, however she reports that she has not seen him yet. Arthritis: No Asthma: No Autoimmune Disease: No Blood Disorders: No Anxiety: Yes Depression: No Heart Rhythm Problems: Yes Cancer: No Cardiac Catheterization: Yes (AICD removed and another implant) Cardiomyopathy: Yes Cardiovascular Problems: Yes (Cardiomyopathy s/p child 4 years ago) High Cholesterol: Yes Chemotherapy: No Chest Pain: Yes Congestive Heart Failure: Yes COPD: No Diabetes: Yes Patient Takes Glucophage: Yes Diminished Hearing: No Endocrine: Yes Gastrointestinal Disorders: Yes (Pancreatitis) GERD: No Genitourinary: Yes (Chronic Kidney disease) Headaches: Yes Hiatal Hernia: No Hypertension: Yes Immune Disorder: No Implanted Vascular Access Dvce: Yes Kidney Stones: No Musculoskeletal: Yes (Back) Neurologic: Yes (Neuropathy) Psychiatric: No Reproductive: Yes Respiratory: Yes Integumentary: Yes (skin swelling and various bruises abdo and bilateral arms from IV sticks) Immunizations Current: Yes Migraines: Yes Radiation Therapy: No Renal Failure: Yes Seizures: No Sickle Cell Disease: No Sleep Apnea: No Thyroid Disease: No Ulcer: No Tetanus Vaccination: Unknown Influenza Vaccination: Yes ?: Unknown : 1 Para: 1 Miscarriage: 0 : 0 Tubal Ligation: Yes Past Surgical History Narrative Surgical The patient's past surgical history is significant for AICD/defibrillator placement, bilateral tubal ligation, cholecystectomy, , tonsillectomy. Abdominal Surgery: Yes (CHOLECYSTECTOMY) AICD: Yes Arteriovenous Shunt: No Body Medical Devices: PT WORE EXTERNAL LIFE VEST 05/15/13, pacer/defibrillator Cardiac Surgery: Yes (pace maker 2015) Section: Yes Cholecystectomy: Yes Ear Surgery: No Endocrine Surgery: No Eye Surgery: No Genitourinary Surgery: No Gynecologic Surgery: Yes (, TUBAL) Insulin Pump: No Joint Replacement: No Oral Surgery: No Pacemaker: Yes Thoracic Surgery: No Tonsillectomy: Yes Other Surgery: Yes (, Tubal ligation, Gallbladder) Social History Alcohol Use: No Tobacco Use: No Substance Use: No Allergies-Medications (Allergen,Severity, Reaction): Coded Allergies: Toradol (Verified Adverse Reaction, Mild, SHAKING, 03/12/17) Reported Meds & Prescriptions Reported Meds & Active Scripts Active Ferrous Sulfate 325 Mg Tab 325 Mg PO BID@,17 Flexeril (Cyclobenzaprine HCl) 10 Mg Tab 5 Mg PO Q8H PRN Bumex (Bumetanide) 2 Mg Tab 2 Mg PO BID Coreg (Carvedilol) 12.5 Mg Tab 25 Mg PO Q12HR Reported Xanax (Alprazolam) 0.5 Mg Tab 0.5 Mg PO BID PRN Narrative Medication And Hydromorphone 2 mg by mouth every 8 hours PRN Pain. Review of Systems Except as stated in HPI: all other systems reviewed are Neg General / Constitutional: Positive: Fever, Chills Eyes: No: Visual changes HENT: Positive: Congestion, No: Headaches, Rhinorrhea Cardiovascular: Positive: Chest Pain or Discomfort, Dyspnea on exertion Respiratory: Positive: Cough, Shortness of Breath Gastrointestinal: Positive: Nausea, Vomiting, Abdominal Pain, Loss of Appetite , No: Diarrhea, Hematemesis, Hematochezia, Changes in Bowel Habits, Indigestion Genitourinary: No: Dysuria Musculoskeletal: No: Pain Skin: No Rash Neurologic: No: Weakness Psychiatric: No: Depression Endocrine: No: Polydipsia Hematologic/Lymphatic: No: Easy Bruising Physical Exam Narrative General: The patient is a well-developed well-nourished female in no acute distress. Head and Neck exam: Head is normocephalic atraumatic. Eyes: EOMI, pupils are equal round and reactive to light. Nose: Midline septum with pink mucous membranes Mouth: Dentition unremarkable. Moist mucus membranes. Posterior oropharynx is not erythematous. No tonsillar hypertrophy. Uvula midline. Airway patent. Neck: No palpable lymphadenopathy. No nuchal rigidity. No thyromegaly. Cardiovascular: Regular rate and rhythm with a 1/6 systolic murmur, no gallops or rubs. No pulse deficit to the extremities and simultaneous auscultation and palpation of the radial artery. Lungs: Clear to auscultation bilaterally. No wheezes, rhonchi, or rales. The patient has left-sided chest wall tenderness on palpation just below the left breast without any erythema or ecchymosis. No step-off or crepitus. No flail segment. Abdomen: Soft, with reported tenderness on palpation of the left upper quadrant of the abdomen and midepigastric area. No other tenderness on palpation of the other quadrants of the abdomen No guarding, rebound, or rigidity. Negative [place] sign. No tenderness on palpation of McBurney's point. Normal bowel sounds are audible. Extremities: No clubbing, cyanosis, or edema. 2+ pulses in all 4 extremities. No calf tenderness on palpation. Back: The patient reports having bilateral CVA tenderness on palpation. Neurologic Exam: Grossly nonfocal. Skin Exam: No rash noted. Intact skin that is warm and dry. Data Data Last Documented VS Vital Signs Date Time Temp Pulse Resp B/P Pulse Ox O2 Delivery O2 Flow Rate FiO2 03/12/17 21:59 98 16 96 Room Air 03/12/17 21:56 98.7 154/90 Orders Electrocardiogram (03/12/17 22:12) B-Type Natriuretic Peptide (03/12/17 22:12) Ckmb (Isoenzyme) Profile (03/12/17 22:12) Complete Blood Count With Diff (03/12/17 22:12) Comprehensive Metabolic Panel (03/12/17 22:12) Magnesium (Mg) (03/12/17 22:12) Prothrombin Time / Inr (Pt) (03/12/17 22:12) Act Partial Throm Time (Ptt) (03/12/17 22:12) Troponin I (03/12/17 22:12) Lipase (03/12/17 22:12) Chest, Single Ap (03/12/17 22:12) Ecg Monitoring (03/12/17 22:12) Bilateral Bp Monitoring (03/12/17 22:12) Iv Access Insert/Monitor (03/12/17 22:12) Oximetry (03/12/17 22:12) Oxygen Administration (03/12/17 22:12) Nitroglycerin 2% Oint (Nitroglycerin 2% (03/12/17 22:15) Sodium Chloride 0.9% Flush (Ns Flush) (03/12/17 22:15) Blood Culture (03/12/17 22:12) C-Reactive Protein (Crp) (03/12/17 22:12) Ed Urine Pregnancytest Poc (03/12/17 22:12) Lactic Acid Sepsis Protocol (03/12/17 22:12) Sodium Chlor 0.9% 250 Ml Inj (Ns 250 Ml (03/12/17 22:30) Ondansetron Inj (Zofran Inj) (03/12/17 22:30) Pantoprazole Inj (Protonix Inj) (03/12/17 22:30) Bumetanide (Bumetanide) (03/12/17 23:30) Ceftriaxone Inj (Rocephin Inj) (03/12/17 23:45) Acetamin-Hydrocod 325-5 Mg ([place] 5-325 (03/12/17 23:45) Oral Rehydration (03/12/17 23:36) Labs Laboratory Tests Test 03/12/17 03/12/17 22:15 22:20 White Blood Count 8.5 TH/MM3 Red Blood Count 4.32 MIL/MM3 Hemoglobin 11.9 GM/DL Hematocrit 36.0 % Mean Corpuscular Volume 83.2 FL Mean Corpuscular Hemoglobin 27.4 PG Mean Corpuscular Hemoglobin 33.0 % Concent Red Cell Distribution Width 14.4 % Platelet Count 181 TH/MM3 Mean Platelet Volume 10.6 FL Neutrophils (%) (Auto) 84.2 % Lymphocytes (%) (Auto) 11.0 % Monocytes (%) (Auto) 2.0 % Eosinophils (%) (Auto) 2.0 % Basophils (%) (Auto) 0.8 % Neutrophils # (Auto) 7.2 TH/MM3 Lymphocytes # (Auto) 0.9 TH/MM3 Monocytes # (Auto) 0.2 TH/MM3 Eosinophils # (Auto) 0.2 TH/MM3 Basophils # (Auto) 0.1 TH/MM3 CBC Comment DIFF FINAL Differential Comment Prothrombin Time 11.6 SEC Prothromb Time International 1.0 RATIO Ratio Activated Partial 25.4 SEC Thromboplast Time Sodium Level 140 MEQ/L Potassium Level 4.9 MEQ/L Chloride Level 107 MEQ/L Carbon Dioxide Level 23.7 MEQ/L Anion Gap 9 MEQ/L Blood Urea Nitrogen 37 MG/DL Creatinine 2.75 MG/DL Estimat Glomerular Filtration 21 ML/MIN Rate Random Glucose 108 MG/DL Calcium Level 8.6 MG/DL Magnesium Level 1.8 MG/DL Total Bilirubin 0.6 MG/DL Aspartate Amino Transf 26 U/L (AST/SGOT) Alanine Aminotransferase 32 U/L (ALT/SGPT) Alkaline Phosphatase 119 U/L Total Creatine Kinase 52 U/L Troponin I 0.02 NG/ML C-Reactive Protein 1.00 MG/DL B-Type Natriuretic Peptide 2507 PG/ML Total Protein 5.9 GM/DL Albumin 2.4 GM/DL Lipase 224 U/L Lactic Acid Level 1.0 mmol/L MDM Medical Decision Making Medical Screen Exam Complete: Yes Emergency Medical Condition: Yes Medical Record Reviewed: Yes Interpretation(s) Last Impressions Chest X-Ray 03/12/172211 Signed Impressions: Service Date/Time: Sunday, March 12, 2017 22:18 - CONCLUSION: Stable appearance of cardiomegaly and no acute cardiopulmonary disease. Brannon Savage MD Differential Diagnosis Congestive heart failure exacerbation, versus pneumonia, versus costochondritis , versus pleurisy, versus acute coronary syndrome, versus pain medication seeking behavior, versus acid reflux, versus gastritis Narrative Course During the course of the patients emergency department visit, the patients history, examination, and differential diagnosis were reviewed with the patient. The patient had IV access obtained and blood work sent for analysis. The patient was placed on a compliance monitor with oximetry and blood pressure monitoring. An EKG was done on arrival. The patient's EKG shows a sinus tachycardia rate of 101, left ventricular hypertrophy is noted by voltage, no acute ST segment elevation is noted, J-point elevation is noted in lead V1, V2, however this is compared to a prior EKG done at this facility and no acute changes are noted. QRS duration is 114 ms, QTC 420 ms. The patient was initially provided 162 mg of aspirin by mouth by ambulance services. The patient will be given Protonix 40 mg IV, Zofran 4 mg IV. The patient will be provided gentle IV hydration due to her vomiting and history of cardiomyopathy. The patients laboratory studies were reviewed and remarkable for a white count of 8.5, hemoglobin 11.9, platelets 181 with 84.2 neutrophils, CMP is remarkable for a BUN of 37, creatinine 2.75 which is similar compared to previously, glucose 108, lipase 224, C-reactive protein 1.00, alkaline phosphatase 119, BNP is 2507, however chest x-ray reveals cardiomegaly without any evidence of fluid overload, lactic acid 1.0, PT 11.6, PTT 25.4 The patient tolerated oral rehydration. The patient's electronic medical record was reviewed as well as [facility] regarding her prescription records. The patient has received multiple prescriptions for hydromorphone and various physicians in [place]. The patient recurrently did ask for pain medication related to her chest wall pain. The patient was given hydrocodone 5 mg by mouth 1. The patient was given Rocephin 1 g IV due to a concern about bronchitis in this patient with the reported chest wall injury related to a fall and now a productive cough. No evidence of pneumonia on her chest x-ray. The patient will be discharged home with a prescription for Ceftin. The patient has not taken her evening dose of Bumex. This was provided prior to discharge. The patient is resting comfortably and feels better, is alert and in no distress. The patients results and examination findings were discussed with the patient. The repeat examination is unremarkable and benign. The history, exam, diagnostic testing, and current condition do not suggest any significant pathology to warrant further testing, continued ED treatment, admission, or surgical evaluation at this point. The vital signs have been stable. The patient does not have uncontrollable pain, intractable vomiting, or other significant symptoms. The patient's condition is stable and appropriate for discharge. The patient will pursue further outpatient evaluation with a primary care physician or other designated or consulting physician as indicated in the discharge instructions. The patient expressed understanding and was agreeable with this plan. Diagnosis Primary Impression: Chest wall pain Additional Impression: Bronchitis Referrals: Crematory Attendant 1 week Pain Management 3 days Primary Care Physician 2 days Additional Instructions: The patient is instructed to continue on the Bumex 2 mg by mouth twice a day that was previously prescribed, Coreg, fluid restriction as previously recommended during her hospitalization, Flexeril as needed for muscle spasms. Med/Other Pt SpecificInfo: Prescription(s) given Scripts Cefuroxime (Ceftin)500 Mg Wve224 Mg PO BID 9 Days Ref 0 Prov:Marla Elias MD 03/12/17 Disposition: 01 DISCHARGE HOME Condition: Stable Marla Elias MD March 12, 2017 22:30
[2017-03-12 22:41] LABS: AUTOMATED NEUTROPHIL # 7.2 TH/MM3 (1.8-7.7); BASOPHIL # 0.1 TH/MM3 (0-0.2); BASOPHIL % 0.8 % (0.0-2.0); EOSINOPHIL # 0.2 TH/MM3 (0-0.4); HEMO FLAGS DIFF FINAL; LYMPHOCYTE # 0.9 TH/MM3 (1.0-4.8); MEAN CELL VOLUME 83.2 FL (80.0-100.0); MEAN CORPUSCULAR HEMOGLOBIN 27.4 PG (27.0-34.0); NEUT % 84.2 % (16.0-70.0); PLATELET COUNT 181 TH/MM3 (150-450); RED BLOOD COUNT 4.32 MIL/MM3 (4.00-5.30); RED CELL DISTRIBUTION WIDTH 14.4 % (11.6-17.2); WHITE BLOOD COUNT 8.5 TH/MM3 (4.0-11.0)
[2017-03-12 22:49] LABS: APTT (PATIENT) 25.4 SEC (24.3-30.1); PROTHROMBIN TIME - PATIENT 11.6 SEC (9.8-11.6)
--- NOTE | 2017-03-12 22:53 | RADRPT ---
EXAM DATE/TIME: 03/12/2017 22:18 [facility] COMPARISON: CHEST SINGLE AP, March 08, 2017, 9:40. INDICATIONS : Chest pain. MEDICAL HISTORY : None. SURGICAL HISTORY : Pacemaker. ENCOUNTER: Initial ACUITY: 1 day PAIN SCORE: 0/10 LOCATION: Bilateral chest FINDINGS: A single view of the chest demonstrates the lungs to be symmetrically aerated without evidence of mas s, infiltrate or effusion. The heart size remains mildly prominent with no perihilar edema. There is a left subclavian transvenous pacer remaining in place.. Osseous structures are intact. CONCLUSION: Stable appearance of cardiomegaly and no acute cardiopulmonary disease. Brannon Savage MD on March 12, 2017 at 22:51 Board Certified Radiologist. This report was verified electronically.
[2017-03-12] MEDS: SODIUM CHLORIDE 0.9% FLUSH 10 ML FLUSH IVF PRN ×2 (22:55→23:53)
[2017-03-12 23:11] LABS: ALKALINE PHOSPHATASE 119 U/L (45-117); ALT (GPT) 32 U/L (10-53); ANION GAP 9 MEQ/L (5-15); AST (GOT) 26 U/L (15-37); BICARBONATE 23.7 MEQ/L (21.0-32.0); BLOOD UREA NITROGEN 37 MG/DL (7-18); CHLORIDE 107 MEQ/L (98-107); GLOMERULAR FILTRATION RATE 21 ML/MIN (>89); MAGNESIUM 1.8 MG/DL (1.5-2.5); POTASSIUM 4.9 MEQ/L (3.5-5.1); SODIUM (NA) 140 MEQ/L (136-145); TOTAL BILIRUBIN ADULT 0.6 MG/DL (0.2-1.0)
[2017-03-12 23:13] LABS: CREATINE KINASE 52 U/L (26-192)
[2017-03-12] MEDS ORDERED: BUMETANIDE 1 MG TAB PO ONE (23:30)
[2017-03-12] MEDS ORDERED: CEFT500T3 PO (23:37)
[2017-03-12] MEDS ORDERED: ACETAMINOPHEN/HYDROcodone 325 MG/5 MG TAB PO ONE (23:45)
[2017-03-12] MEDS ORDERED: cefTRIAXone INJ 1,000 MG in SODIUM CHLORIDE 0.9% INJ 100 ML IV ONE (23:45)
[2017-03-13 00:01] VITALS: O2SAT 97
[2017-03-13 01:28] VITALS: BP 132/79; PULSE 84; RESP 20; O2SAT 96
[2017-03-13 01:55] VITALS: BP 106/56
--- NOTE | 2017-03-13 19:35 | EKG ---
Date Performed: 03/12/2017 Time Performed: 21:58:59 PTAGE: 27 years EKG: SINUS TACHYCARDIA LEFT VENTRICULAR HYPERTROPHY AND ST-T CHANGES POSSIBLE SEPTAL MYOCARDIAL INFARCTION ABNORMAL ECG PREVIOUS TRACING : 03/08/2017 09.55 Compared to prior tracing no significant change DOCTOR: Francine Crawford Interpretating Date/Time 03/13/2017 19:34:47
== END 2017-03-13 02:12 | disposition home or self-care (01) ==
LOC: NEPE 21:54
DX: R07.89 Other chest pain (principal); R06.02 Shortness of breath; E11.9 Type 2 diabetes mellitus without complications; I12.9 Hypertensive chronic kidney disease with stage 1 through stage 4 chronic kidney disease, or unspecified chronic kidney disease; M54.5 Low back pain; G89.29 Other chronic pain; R94.31 Abnormal electrocardiogram [ECG] [EKG]
CPT/HCPCS: 71010; 80053; 82550; 83605; 83690; 83735; 83880; 84484; 85025; 85610; 85730; 86140; 87040; 93005; 96361; 96365; 96375; 99285; C9113; J0696; J2405; J7050

== ENCOUNTER 2017-03-23 10:52 | Emergency (ER) | payer MEDICARE, MEDICAID ==
[~2017-03-23] VITALS: Ht 162.6 cm; Wt 82.0 kg
[~2017-03-23 10:52] MED LIST changes: +CEFT500T3 PO
[2017-03-23 10:54] VITALS: BP 140/88; PULSE 85; RESP 20; TEMP 98.6; O2SAT 99
--- NOTE | 2017-03-23 11:14 | PD ---
Physical Exam Date Seen by Provider: Mar 23, 2017 Time Seen by Provider: 11:12 Data Data Last Documented VS Vital Signs Date Time Temp Pulse Resp B/P Pulse Ox O2 Delivery O2 Flow Rate FiO2 03/23/17 10:54 98.6 85 20 140/88 99 Room Air MDM Supervised Visit with KUNAL: No Narrative Course 27 YO F with PMH cardiomyopathy, EF ~10% with complaint of CP, SOB, increased edema, low urine output x 1 week. Increased Bumex dose with no improvement. Vitals reviewed. Patient awaiting bed placement. Lucy Leonardo Mar 23, 2017 11:14
--- NOTE | 2017-03-23 11:29 | PD ---
HPI Chief Complaint: Edema Time Seen by Provider: 11:28 Travel History International Travel<30 days: No Contact w/Intl Traveler<30days: No Traveled to known affect area: No History of Present Illness HPI 27-year-old female with a history of cardiomyopathy with an ejection fraction 10 % secondary to childbirth with AICD pacemaker presents to the emergency department for evaluation of lower extremity swelling for one week. States that she is also noticed swelling in her abdomen and has had worsening shortness of breath. States that the shortness of breath is admitted with lying flat, has not been able to lay flat over the last week. States that she called her local presser cotton ginning Dr. Cardoso and her presser cotton ginning at [facility] in [place] and was instructed to double her dose of Bumex. She has taken a double dose of Bumex for the past 5 days and her swelling has not improved. She states that she does have some intermittent left-sided chest pain that she describes as a pressure. She is not currently experiencing any chest pain. She is complaining of pain in her legs and abdomen where she is having fluid retention. She also complaining of some mild nausea. Denies any fever, chills , vomiting, diarrhea, cough or cold symptoms. No other complaints. PFSH Past Medical History Hx Anticoagulant Therapy: No Arthritis: No Asthma: No Autoimmune Disease: No Blood Disorders: No Anxiety: Yes Depression: No Heart Rhythm Problems: Yes Cancer: No Cardiac Catheterization: Yes (AICD removed and another implant) Cardiomyopathy: Yes Cardiovascular Problems: No High Cholesterol: Yes Chemotherapy: No Chest Pain: Yes Congestive Heart Failure: Yes COPD: No Cerebrovascular Accident: No Diabetes: Yes Diminished Hearing: No Endocrine: Yes Gastrointestinal Disorders: Yes (Pancreatitis) GERD: No Genitourinary: Yes (Chronic Kidney disease) Headaches: Yes Hiatal Hernia: No Hypertension: Yes Immune Disorder: No Implanted Vascular Access Dvce: Yes Kidney Stones: No Musculoskeletal: Yes (Back) Neurologic: Yes (Neuropathy) Psychiatric: No Reproductive: Yes Respiratory: No Integumentary: Yes (skin swelling and various bruises abdo and bilateral arms from IV sticks) Immunizations Current: Yes Migraines: Yes Radiation Therapy: No Renal Failure: Yes Seizures: No Sickle Cell Disease: No Sleep Apnea: No Thyroid Disease: No Ulcer: No : 1 Para: 1 Miscarriage: 0 : 0 Tubal Ligation: Yes Past Surgical History Abdominal Surgery: Yes (CHOLECYSTECTOMY) AICD: Yes Arteriovenous Shunt: No Body Medical Devices: PT WORE EXTERNAL LIFE VEST 05/15/13, pacer/defibrillator Cardiac Surgery: Yes (pace maker 2015) Section: Yes Cholecystectomy: Yes Ear Surgery: No Endocrine Surgery: No Eye Surgery: No Genitourinary Surgery: No Gynecologic Surgery: Yes (, TUBAL) Insulin Pump: No Joint Replacement: No Oral Surgery: No Pacemaker: Yes Thoracic Surgery: No Tonsillectomy: Yes Other Surgery: Yes (, Tubal ligation, Gallbladder) Social History Alcohol Use: No Tobacco Use: No Substance Use: No Allergies-Medications (Allergen,Severity, Reaction): Coded Allergies: Toradol (Verified Adverse Reaction, Mild, SHAKING, 03/23/17) Reported Meds & Prescriptions Reported Meds & Active Scripts Active Ceftin (Cefuroxime Axetil) 500 Mg Tab 500 Mg PO BID 9 Days Ferrous Sulfate 325 Mg Tab 325 Mg PO BID@12,17 Flexeril (Cyclobenzaprine HCl) 10 Mg Tab 5 Mg PO Q8H PRN Bumex (Bumetanide) 2 Mg Tab 2 Mg PO BID Coreg (Carvedilol) 12.5 Mg Tab 25 Mg PO Q12HR Reported Xanax (Alprazolam) 0.5 Mg Tab 0.5 Mg PO BID PRN Review of Systems Except as stated in HPI: all other systems reviewed are Neg Physical Exam Narrative GENERAL: Well-nourished and well-developed female patient in no acute distress who is nontoxic appearing. SKIN: Warm and dry. HEAD: Normocephalic and atraumatic. EYES: No injection, drainage, or hyphema noted. PERRLA. EOMI. ENT: No nasal drainage noted. Oropharynx is clear. NECK: Supple and the trachea is midline. CARDIOVASCULAR: Regular rate and rhythm. RESPIRATORY: Decreased breath sounds at bases. No accessory muscle use, wheezing, rhonchi, or crackles. GASTROINTESTINAL: Abdomen is soft, non-tender, and nondistended. MUSCULOSKELETAL: Edema of bilateral lower extremities. DP pulses are 2+ bilaterally. No obvious deformities, cyanosis, or ecchymosis is present throughout the upper and lower extremities. Patient has full range of motion without any signs of neurovascular compromise. NEUROLOGICAL: Awake, alert, and oriented. Normal speech and gait. Cranial nerves are grossly intact. Data Data Last Documented VS Vital Signs Date Time Temp Pulse Resp B/P Pulse Ox O2 Delivery O2 Flow Rate FiO2 03/23/17 11:47 95 Room Air 03/23/17 10:54 98.6 85 20 140/88 Orders Complete Blood Count With Diff (03/23/17 11:25) Comprehensive Metabolic Panel (03/23/17 11:25) B-Type Natriuretic Peptide (03/23/17 11:25) Act Partial Throm Time (Ptt) (03/23/17 11:25) Prothrombin Time / Inr (Pt) (03/23/17 11:25) Ckmb (Isoenzyme) Profile (03/23/17 11:25) Troponin I (03/23/17 11:25) Iv Access Insert/Monitor (03/23/17 11:25) Electrocardiogram (03/23/17 11:25) Ecg Monitoring (03/23/17 11:25) Oximetry (03/23/17 11:25) Chest, Single Ap (03/23/17 11:25) Sodium Chloride 0.9% Flush (Ns Flush) (03/23/17 11:30) Ed Urine Pregnancytest Poc (03/23/17 11:25) Acetamin-Hydrocod 325-5 Mg ([place] 5-325 (03/23/17 12:00) Ondansetron Odt (Zofran Odt) (03/23/17 12:00) Vascular Poc Ultrasound (03/23/17 ) Vascular Access Team Consult/P PRN (03/23/17 12:25) Us Leg Venous Doppler Bilat (03/23/17 ) Acetamin-Hydrocod 325-5 Mg ([place] 5-325 (03/23/17 13:15) Furosemide Inj (Lasix Inj) (03/23/17 14:30) Labs Laboratory Tests Test 03/23/17 03/23/17 12:00 12:30 White Blood Count 6.0 TH/MM3 Red Blood Count 3.77 MIL/MM3 Hemoglobin 10.7 GM/DL Hematocrit 32.3 % Mean Corpuscular Volume 85.7 FL Mean Corpuscular Hemoglobin 28.5 PG Mean Corpuscular Hemoglobin 33.2 % Concent Red Cell Distribution Width 14.9 % Platelet Count 162 TH/MM3 Mean Platelet Volume 9.9 FL Neutrophils (%) (Auto) 66.3 % Lymphocytes (%) (Auto) 22.5 % Monocytes (%) (Auto) 6.9 % Eosinophils (%) (Auto) 3.1 % Basophils (%) (Auto) 1.2 % Neutrophils # (Auto) 4.0 TH/MM3 Lymphocytes # (Auto) 1.4 TH/MM3 Monocytes # (Auto) 0.4 TH/MM3 Eosinophils # (Auto) 0.2 TH/MM3 Basophils # (Auto) 0.1 TH/MM3 CBC Comment DIFF FINAL Differential Comment Sodium Level 139 MEQ/L Potassium Level 5.0 MEQ/L Chloride Level 106 MEQ/L Carbon Dioxide Level 25.0 MEQ/L Anion Gap 8 MEQ/L Blood Urea Nitrogen 41 MG/DL Creatinine 2.65 MG/DL Estimat Glomerular Filtration 21 ML/MIN Rate Random Glucose 114 MG/DL Calcium Level 8.3 MG/DL Total Bilirubin 0.4 MG/DL Aspartate Amino Transf 53 U/L (AST/SGOT) Alanine Aminotransferase 41 U/L (ALT/SGPT) Alkaline Phosphatase 98 U/L Total Creatine Kinase 72 U/L Troponin I LESS THAN 0.02 NG/ML B-Type Natriuretic Peptide 948 PG/ML Total Protein 6.0 GM/DL Albumin 2.2 GM/DL Prothrombin Time 11.4 SEC Prothromb Time International 1.0 RATIO Ratio Activated Partial 25.8 SEC Thromboplast Time MDM Medical Decision Making Medical Screen Exam Complete: Yes Emergency Medical Condition: Yes Differential Diagnosis CHF exacerbation versus fluid overload versus renal failure versus dependent edema Narrative Course 27-year-old female with a history of cardiomyopathy with an ejection fraction of 10% presents to the emergency department for evaluation of lower extremity swelling with shortness of breath for one week. Patient is afebrile, vital signs are stable. She has doubled her dose of Bumex over the past 5 days without improvement of symptoms. IV access is obtained, labs were drawn and sent. Patient is placed on cardiac telemetry and pulse oximetry monitoring. Chest x-ray is negative for any acute abnormalities. CBC shows mild anemia with a hemoglobin of 10.7, hematocrit 30.3. CMP shows renal insufficiency with a creatinine of 2.65, BUN 41, GFR 21. This appears to be around the patient's baseline. Troponin is less than 0.02. BNP is elevated at 948. Coags are unremarkable. Bilateral lower extremity ultrasounds are negative for DVT. Lab work is reassuring, no acute abnormalities. Chest x-ray does not reveal acute heart failure. Patient has remained stable while here in the emergency department. She has been asking for multiple doses of pain medication for her leg pain and therefore an ultrasound of the lower extremities was ordered to rule out DVT. The patient has no acute findings to suggest acute heart failure. She'll be given a dose of Lasix 40 mg IV here to help improve her edema. She is instructed to follow-up with her PCP and to call her presser cotton ginning on Saturday. I discussed the case with my attending physician Dr. Bustamante who is aware of the patients history, physical examination findings, and treatment plan. Diagnosis Primary Impression: Bilateral lower extremity edema Referrals: Primary Care Physician Patient Instructions: Edema (ED), General Instructions Additional Instructions: Follow-up with your Primary Care Physician and call your presser cotton ginning on Saturday. Return to the ED for any acute worsening of symptoms. Med/Other Pt SpecificInfo: No Change to Meds Disposition: 01 DISCHARGE HOME Condition: Stable Radha Frost Mar 23, 2017 11:29
[2017-03-23] MEDS ORDERED: SODIUM CHLORIDE 0.9% FLUSH 10 ML FLUSH IVF PRN (11:30)
[2017-03-23 11:47] VITALS: O2SAT 95
[2017-03-23] MEDS ORDERED: ACETAMINOPHEN/HYDROcodone 325 MG/5 MG TAB PO ONE ×2 (12:00→13:15)
[2017-03-23] MEDS ORDERED: ONDANSETRON ODT 4 MG TAB PO ONE (12:00)
[2017-03-23 12:23] LABS: BASOPHIL # 0.1 TH/MM3 (0-0.2); BASOPHIL % 1.2 % (0.0-2.0); EOSINOPHIL # 0.2 TH/MM3 (0-0.4); EOSINOPHIL % 3.1 % (0.0-4.0); HEMATOCRIT 32.3 % (35.0-46.0); HEMO FLAGS DIFF FINAL; LYMPH % 22.5 % (9.0-44.0); LYMPHOCYTE # 1.4 TH/MM3 (1.0-4.8); MEAN CELL VOLUME 85.7 FL (80.0-100.0); MEAN CORPUSCULAR HEMOGLOBIN 28.5 PG (27.0-34.0); MEAN CORPUSCULAR HGB CONC 33.2 % (32.0-36.0); MONO % 6.9 % (0.0-8.0); NEUT % 66.3 % (16.0-70.0); PLATELET COUNT 162 TH/MM3 (150-450); RED BLOOD COUNT 3.77 MIL/MM3 (4.00-5.30); RED CELL DISTRIBUTION WIDTH 14.9 % (11.6-17.2)
[2017-03-23 12:40] LABS: ALT (GPT) 41 U/L (10-53); ANION GAP 8 MEQ/L (5-15); AST (GOT) 53 U/L (15-37); BLOOD UREA NITROGEN 41 MG/DL (7-18); CHLORIDE 106 MEQ/L (98-107); GLOMERULAR FILTRATION RATE 21 ML/MIN (>89); SODIUM (NA) 139 MEQ/L (136-145); TOTAL BILIRUBIN ADULT 0.4 MG/DL (0.2-1.0)
[2017-03-23 12:42] LABS: ALKALINE PHOSPHATASE 98 U/L (45-117); CREATINE KINASE 72 U/L (26-192)
--- NOTE | 2017-03-23 12:43 | RADRPT ---
EXAM DATE/TIME: 03/23/2017 11:54 [facility] COMPARISON: CHEST SINGLE AP, March 12, 2017, 22:18. INDICATIONS : Chest pain, shortness of breath and lower body edema. MEDICAL HISTORY : Congestive heart failure. Cardiomyeopathy. SURGICAL HISTORY : Pacemaker. ENCOUNTER: Initial ACUITY: 2 weeks PAIN SCORE: 5/10 LOCATION: Entire body. FINDINGS: Single AP view of the chest. AICD in place. The lungs are clear. Cardiac silhouette enlargement uncha nged. No evidence of pleural effusion or pneumothorax. CONCLUSION: No acute cardiopulmonary disease identified. Dae Peng MD on March 23, 2017 at 12:41 Board Certified Radiologist. This report was verified electronically.
[2017-03-23 13:07] LABS: APTT (PATIENT) 25.8 SEC (24.3-30.1); PROTHROMBIN TIME - PATIENT 11.4 SEC (9.8-11.6)
[2017-03-23] MEDS ORDERED: FUROSEMIDE 40 MG/4 ML VIAL IV PUSH ONE (14:30)
--- NOTE | 2017-03-23 15:18 | RADRPT ---
EXAM DATE/TIME: 03/23/2017 13:43 [facility] COMPARISON: US LEG BILATERAL VENOUS DOPPLER, February 12, 2017, 16:00. INDICATIONS : Bilateral leg edema. MEDICAL HISTORY : Congestive heart failure. Hypercholesterolemia. Pancreatitis. Neuropathy. Migraines. Cardiomyopathy. Chest pain. Irregular heartbeat. HTN. Dyspnea. Chronic kidney disease. Renal failure. UTI. Diabetes. Anxiety. SURGICAL HISTORY : Tonsillectomy.Pacemaker. Cholecystectomy.Cardiac cath. section. Tubal ligation. Dialysis. Bl ood transfusions. ENCOUNTER: Subsequent ACUITY: 1 week PAIN SCORE: 8/10 LOCATION: Bilateral leg. TECHNIQUE: Venous ultrasound of the left and right leg was performed from the inguinal ligament to the proximal calf. Real-time, color Doppler and spectral tracing, compression and augmentation techniques were us ed. FINDINGS: RIGHT LEG: There is normal compressibility of the deep venous system from the inguinal region to the proximal ca lf. No echogenic clot is seen in the lumen of the common femoral, femoral, popliteal, and posterior tibial veins. There is a normal response of the venous system to proximal and distal augmentation an d respiration. LEFT LEG: There is normal compressibility of the deep venous system from the inguinal region to the proximal ca lf. No echogenic clot is seen in the lumen of the common femoral, femoral, popliteal, and posterior tibial veins. There is a normal response of the venous system to proximal and distal augmentation an d respiration. CONCLUSION: No evidence of lower extremity DVT on the right or left. Dae Peng MD on March 23, 2017 at 15:16 Board Certified Radiologist. This report was verified electronically.
--- NOTE | 2017-03-23 15:35 | PD ---
Physical Exam Date Seen by Provider: Mar 23, 2017 Data Data Last Documented VS Vital Signs Date Time Temp Pulse Resp B/P Pulse Ox O2 Delivery O2 Flow Rate FiO2 03/23/17 11:47 95 Room Air 03/23/17 10:54 98.6 85 20 140/88 Orders Complete Blood Count With Diff (03/23/17 11:25) Comprehensive Metabolic Panel (03/23/17 11:25) B-Type Natriuretic Peptide (03/23/17 11:25) Act Partial Throm Time (Ptt) (03/23/17 11:25) Prothrombin Time / Inr (Pt) (03/23/17 11:25) Ckmb (Isoenzyme) Profile (03/23/17 11:25) Troponin I (03/23/17 11:25) Iv Access Insert/Monitor (03/23/17 11:25) Electrocardiogram (03/23/17 11:25) Ecg Monitoring (03/23/17 11:25) Oximetry (03/23/17 11:25) Chest, Single Ap (03/23/17 11:25) Sodium Chloride 0.9% Flush (Ns Flush) (03/23/17 11:30) Ed Urine Pregnancytest Poc (03/23/17 11:25) Acetamin-Hydrocod 325-5 Mg ([place] 5-325 (03/23/17 12:00) Ondansetron Odt (Zofran Odt) (03/23/17 12:00) Vascular Poc Ultrasound (03/23/17 ) Vascular Access Team Consult/P PRN (03/23/17 12:25) Us Leg Venous Doppler Bilat (03/23/17 ) Acetamin-Hydrocod 325-5 Mg ([place] 5-325 (03/23/17 13:15) Furosemide Inj (Lasix Inj) (03/23/17 14:30) Labs Laboratory Tests Test 03/23/17 03/23/17 12:00 12:30 White Blood Count 6.0 TH/MM3 Red Blood Count 3.77 MIL/MM3 Hemoglobin 10.7 GM/DL Hematocrit 32.3 % Mean Corpuscular Volume 85.7 FL Mean Corpuscular Hemoglobin 28.5 PG Mean Corpuscular Hemoglobin 33.2 % Concent Red Cell Distribution Width 14.9 % Platelet Count 162 TH/MM3 Mean Platelet Volume 9.9 FL Neutrophils (%) (Auto) 66.3 % Lymphocytes (%) (Auto) 22.5 % Monocytes (%) (Auto) 6.9 % Eosinophils (%) (Auto) 3.1 % Basophils (%) (Auto) 1.2 % Neutrophils # (Auto) 4.0 TH/MM3 Lymphocytes # (Auto) 1.4 TH/MM3 Monocytes # (Auto) 0.4 TH/MM3 Eosinophils # (Auto) 0.2 TH/MM3 Basophils # (Auto) 0.1 TH/MM3 CBC Comment DIFF FINAL Differential Comment Sodium Level 139 MEQ/L Potassium Level 5.0 MEQ/L Chloride Level 106 MEQ/L Carbon Dioxide Level 25.0 MEQ/L Anion Gap 8 MEQ/L Blood Urea Nitrogen 41 MG/DL Creatinine 2.65 MG/DL Estimat Glomerular Filtration 21 ML/MIN Rate Random Glucose 114 MG/DL Calcium Level 8.3 MG/DL Total Bilirubin 0.4 MG/DL Aspartate Amino Transf 53 U/L (AST/SGOT) Alanine Aminotransferase 41 U/L (ALT/SGPT) Alkaline Phosphatase 98 U/L Total Creatine Kinase 72 U/L Troponin I LESS THAN 0.02 NG/ML B-Type Natriuretic Peptide 948 PG/ML Total Protein 6.0 GM/DL Albumin 2.2 GM/DL Prothrombin Time 11.4 SEC Prothromb Time International 1.0 RATIO Ratio Activated Partial 25.8 SEC Thromboplast Time [facility] [place] Medical Record Reviewed: Yes Supervised Visit with KUNAL: Yes Interpretation(s) Vital Signs Date Time Temp Pulse Resp B/P Pulse Ox O2 Delivery O2 Flow Rate FiO2 03/23/17 11:47 95 Room Air 03/23/17 10:54 98.6 85 20 140/88 99 Room Air Laboratory Tests Test 03/23/17 03/23/17 12:00 12:30 White Blood Count 6.0 TH/MM3 (4.0-11.0) Red Blood Count 3.77 MIL/MM3 (4.00-5.30) Hemoglobin 10.7 GM/DL (11.6-15.3) Hematocrit 32.3 % (35.0-46.0) Mean Corpuscular Volume 85.7 FL (80.0-100.0) Mean Corpuscular Hemoglobin 28.5 PG (27.0-34.0) Mean Corpuscular Hemoglobin 33.2 % Concent (32.0-36.0) Red Cell Distribution Width 14.9 % (11.6-17.2) Platelet Count 162 TH/MM3 (150-450) Mean Platelet Volume 9.9 FL (7.0-11.0) Neutrophils (%) (Auto) 66.3 % (16.0-70.0) Lymphocytes (%) (Auto) 22.5 % (9.0-44.0) Monocytes (%) (Auto) 6.9 % (0.0-8.0) Eosinophils (%) (Auto) 3.1 % (0.0-4.0) Basophils (%) (Auto) 1.2 % (0.0-2.0) Neutrophils # (Auto) 4.0 TH/MM3 (1.8-7.7) Lymphocytes # (Auto) 1.4 TH/MM3 (1.0-4.8) Monocytes # (Auto) 0.4 TH/MM3 (0-0.9) Eosinophils # (Auto) 0.2 TH/MM3 (0-0.4) Basophils # (Auto) 0.1 TH/MM3 (0-0.2) CBC Comment DIFF FINAL Differential Comment Sodium Level 139 MEQ/L (136-145) Potassium Level 5.0 MEQ/L (3.5-5.1) Chloride Level 106 MEQ/L (98-107) Carbon Dioxide Level 25.0 MEQ/L (21.0-32.0) Anion Gap 8 MEQ/L (5-15) Blood Urea Nitrogen 41 MG/DL (7-18) Creatinine 2.65 MG/DL (0.50-1.00) Estimat Glomerular Filtration 21 ML/MIN (>89) Rate Random Glucose 114 MG/DL (74-106) Calcium Level 8.3 MG/DL (8.5-10.1) Total Bilirubin 0.4 MG/DL (0.2-1.0) Aspartate Amino Transf 53 U/L (15-37) (AST/SGOT) Alanine Aminotransferase 41 U/L (10-53) (ALT/SGPT) Alkaline Phosphatase 98 U/L (45-117) Total Creatine Kinase 72 U/L (26-192) Troponin I LESS THAN 0.02 NG/ML (0.02-0.05) B-Type Natriuretic Peptide 948 PG/ML (0-100) Total Protein 6.0 GM/DL (6.4-8.2) Albumin 2.2 GM/DL (3.4-5.0) Prothrombin Time 11.4 SEC (9.8-11.6) Prothromb Time International 1.0 RATIO Ratio Activated Partial 25.8 SEC Thromboplast Time (24.3-30.1) Last Impressions Chest X-Ray 03/23/17 1125 Signed Impressions: Service Date/Time: Thursday, March 23, 2017 11:54 - CONCLUSION: No acute cardiopulmonary disease identified. Dae Peng MD Lower Extremity Ultrasound 03/23/17 0000 Signed Impressions: Service Date/Time: Thursday, March 23, 2017 13:43 - CONCLUSION: No evidence of lower extremity DVT on the right or left. Dae Peng MD Differential Diagnosis Cardiomyopathy with CHF exacerbation, DVT, electrolyte abnormality, dependent edema to her extremities bilaterally Narrative Course I, Dr. Bustamante, have reviewed the advance practice practitioner's documentation and am in agreement, met with the patient face to face, made the diagnosis, and the medical decision making was done by me. *My assessment and Findings: Patient is a 27-year-old female with history of cardiomyopathy with an EF of 10% , presents to emergency room with complaints of swelling to her lower extremities which has been worsening over the past week. Reports that she follows with Dr. Cardoso in the cardiology office and reports that when her symptoms started, he had doubled her dose of Bumex, patient reports that she still has increased swelling to her lower extremities. Patient reports that she has increased pain to her lower extremities, she reports that she has been elevating her lower extremities without any relief of symptoms. Lab work reviewed, hemoglobin is 10.7, hematocrit 32.3, potassium 5.0, BUN 41, creatinine is 2.65 which is at her baseline, glucose 114, BNP 948 X-ray of the chest shows no acute cardio pulmonary disease Ultrasound of lower extremity show no evidence of DVT Patient with mostly swelling to bilateral extremities from dependent edema. Patient will follow-up with her cashier gambling and will return to emergency room as needed. Patient does not require admission to the hospital or further workup at this time. Patient is stable to be discharged home with outpatient follow-up. Signs and symptoms of when to return to the emergency room as needed patient detail. Diagnosis Primary Impression: Bilateral lower extremity edema Referrals: Primary Care Physician Patient Instructions: General Instructions, Edema (ED) Additional Instruction: Follow-up with your Primary Care Physician and call your cashier gambling on Saturday. Return to the ED for any acute worsening of symptoms. Disposition: 01 DISCHARGE HOME Condition: Stable Hermelinda Bustamante DO Mar 23, 2017 15:35
--- NOTE | 2017-03-24 14:13 | EKG ---
Date Performed: 03/23/2017 Time Performed: 11:25:05 PTAGE: 27 years EKG: Sinus rhythm LEFT VENTRICULAR HYPERTROPHY AND ST-T CHANGE ABNORMAL ECG INTERPRETATION BASED ON A DEFAULT AGE OF 4 0 YEARS Since PREVIOUS TRACING 03/12/2017, no significant change. PREVIOUS TRACIN03/12/2017 DOCTOR: Jericho Rodriguez Interpretating Date/Time 03/24/2017 14:12:28
== END 2017-03-23 15:54 | disposition home or self-care (01) ==
LOC: NEPE 10:52
DX: R60.0 Localized edema (principal); R94.31 Abnormal electrocardiogram [ECG] [EKG]; I42.9 Cardiomyopathy, unspecified; I50.9 Heart failure, unspecified; I12.9 Hypertensive chronic kidney disease with stage 1 through stage 4 chronic kidney disease, or unspecified chronic kidney disease
CPT/HCPCS: 71010; 80053; 82550; 83880; 84484; 84703; 85025; 85610; 85730; 93005; 93970; 96374; 99285; J1940

== ENCOUNTER 2017-07-26 11:17 | Observation (INO) | payer MEDICARE, MEDICAID ==
[~2017-07-26] VITALS: Ht 162.6 cm; Wt 96.6 kg
[2017-07-26] VITALS (9 sets, daily range): BP systolic 119–151; BP diastolic 79–107; PULSE 71–95; RESP 16–20; TEMP 96.7–98.5; O2SAT 90–99
[2017-07-26] MEDS ORDERED: BUME2TAB PO (11:41)
--- NOTE | 2017-07-26 11:47 | PD ---
HPI Chief Complaint: Respiratory Distress Time Seen by Provider: 11:37 Travel History International Travel<30 days: No Contact w/Intl Traveler<30days: No Traveled to known affect area: No History of Present Illness HPI This 27-year-old female complaining of shortness of breath. She says that about 3 days ago she started swelling up. She then has become short of breath. She has a history of cardiomyopathy since 2012 when she gave . She is currently on Coreg and Bumex. She has been admitted for CHF in the past. She denies any recent chest pain. She says she HAS been taking her medication. She was recently [facility] they're only giving her 2 mg of Bumex so she is supposed to take4 daily. She says that she has been taking her Coreg. She was released from nursing home last Saturday. She has a history of renal insufficiency PFSH Past Medical History Hx Anticoagulant Therapy: No Arthritis: No Asthma: No Autoimmune Disease: No Blood Disorders: No Anxiety: Yes Depression: No Heart Rhythm Problems: Yes Cancer: No Cardiac Catheterization: Yes (AICD removed and another implant) Cardiomyopathy: Yes Cardiovascular Problems: Yes High Cholesterol: Yes Chemotherapy: No Chest Pain: Yes Congestive Heart Failure: Yes COPD: No Cerebrovascular Accident: No Diabetes: Yes Patient Takes Glucophage: No Diminished Hearing: No Endocrine: Yes Gastrointestinal Disorders: Yes (Pancreatitis) GERD: No Genitourinary: Yes (Chronic Kidney disease) Headaches: Yes Hiatal Hernia: No Heparin Induced Thrombocytopen: No Hypertension: Yes Immune Disorder: No Implanted Vascular Access Dvce: Yes Kidney Stones: No Musculoskeletal: Yes (Back) Neurologic: Yes (Neuropathy) Psychiatric: No Reproductive: Yes Respiratory: No Integumentary: Yes (skin swelling and various bruises abdo and bilateral arms from IV sticks) Immunizations Current: Yes Migraines: Yes Radiation Therapy: No Renal Failure: Yes Seizures: No Sickle Cell Disease: No Sleep Apnea: No Thyroid Disease: No Ulcer: No ?: Not : 1 Para: 1 Miscarriage: 0 : 0 Tubal Ligation: Yes Past Surgical History Abdominal Surgery: Yes (CHOLECYSTECTOMY) AICD: Yes Arteriovenous Shunt: No Body Medical Devices: PT WORE EXTERNAL LIFE VEST 05/15/13, pacer/defibrillator Cardiac Surgery: Yes (pace maker 2015) Section: Yes Cholecystectomy: Yes Ear Surgery: No Endocrine Surgery: No Eye Surgery: No Genitourinary Surgery: No Gynecologic Surgery: Yes (, TUBAL) Insulin Pump: No Joint Replacement: No Oral Surgery: No Pacemaker: Yes Thoracic Surgery: No Tonsillectomy: Yes Other Surgery: Yes (, Tubal ligation, Gallbladder) Social History Alcohol Use: No Tobacco Use: No Substance Use: No Allergies-Medications (Allergen,Severity, Reaction): Coded Allergies: ketorolac (Unverified Adverse Reaction, Mild, SHAKING, 07/26/17) Reported Meds & Prescriptions Reported Meds & Active Scripts Active Coreg (Carvedilol) 12.5 Mg Tab 25 Mg PO Q12HR Reported Bumetanide 2 Mg Tab 4 Mg PO BID Review of Systems General / Constitutional: No: Fever, Chills Eyes: No: Diploplia, Blurred Vision HENT: No: Headaches, Vertigo Cardiovascular: Positive: Edema, No: Chest Pain or Discomfort Respiratory: Positive: Shortness of Breath, Wheezing Gastrointestinal: No: Nausea, Vomiting Genitourinary: No: Urgency, Frequency Musculoskeletal: No: Myalgias Skin: No Rash, No Itching Neurologic: Positive: Weakness Hematologic/Lymphatic: No: Easy Bruising Physical Exam Narrative GENERAL: Well-developed female SKIN: Focused skin assessment warm/dry. HEAD: Atraumatic. Normocephalic. EYES: Pupils equal and round. No scleral icterus. No injection or drainage. ENT: No nasal bleeding or discharge. Mucous membranes pink and moist. NECK: Trachea midline. No JVD. CARDIOVASCULAR: Regular rate and rhythm. No murmur appreciated. RESPIRATORY: No accessory muscle use. There are scattered wheezes bilaterally GASTROINTESTINAL: Abdomen soft, non-tender, nondistended. Hepatic and splenic margins not palpable. There is edema in the suprapubic area MUSCULOSKELETAL: No obvious deformities. No clubbing. No cyanosis. Bilateral pedal edema NEUROLOGICAL: Awake and alert. No obvious cranial nerve deficits. Motor grossly within normal limits. Normal speech. PSYCHIATRIC: Appropriate mood and affect; insight and judgment normal. Data Data Last Documented VS Vital Signs Date Time Temp Pulse Resp B/P (MAP) Pulse Ox O2 Delivery O2 Flow Rate FiO2 07/26/17 11:26 98.5 87 20 132/82 (99) 99 Orders Orders Electrocardiogram (07/26/17 11:41) Complete Blood Count With Diff (07/26/17 11:41) Comprehensive Metabolic Panel (07/26/17 11:41) Troponin I (07/26/17 11:41) B-Type Natriuretic Peptide (07/26/17 11:41) Prothrombin Time / Inr (Pt) (07/26/17 11:41) Act Partial Throm Time (Ptt) (07/26/17 11:41) Magnesium (Mg) (07/26/17 11:41) Chest, Single Ap (07/26/17 11:41) Ondansetron Inj (Zofran Inj) (07/26/17 12:45) Morphine Inj (Morphine Inj) (07/26/17 12:45) Labs Laboratory Tests Test 07/26/17 11:45 White Blood Count 6.9 TH/MM3 Red Blood Count 4.03 MIL/MM3 Hemoglobin 11.1 GM/DL Hematocrit 34.3 % Mean Corpuscular Volume 85.0 FL Mean Corpuscular Hemoglobin 27.5 PG Mean Corpuscular Hemoglobin Concent 32.3 % Red Cell Distribution Width 16.5 % Platelet Count 195 TH/MM3 Mean Platelet Volume 10.0 FL Neutrophils (%) (Auto) 69.7 % Lymphocytes (%) (Auto) 20.2 % Monocytes (%) (Auto) 6.4 % Eosinophils (%) (Auto) 2.3 % Basophils (%) (Auto) 1.4 % Neutrophils # (Auto) 4.8 TH/MM3 Lymphocytes # (Auto) 1.4 TH/MM3 Monocytes # (Auto) 0.4 TH/MM3 Eosinophils # (Auto) 0.2 TH/MM3 Basophils # (Auto) 0.1 TH/MM3 CBC Comment DIFF FINAL Differential Comment Prothrombin Time 11.3 SEC Prothromb Time International Ratio 1.0 RATIO Activated Partial Thromboplast Time 23.8 SEC Blood Urea Nitrogen 71 MG/DL Creatinine 4.20 MG/DL Random Glucose 139 MG/DL Total Protein 5.8 GM/DL Albumin 2.3 GM/DL Calcium Level 7.6 MG/DL Magnesium Level 1.8 MG/DL Alkaline Phosphatase 93 U/L Aspartate Amino Transf (AST/SGOT) 32 U/L Alanine Aminotransferase (ALT/SGPT) 51 U/L Total Bilirubin 0.3 MG/DL Sodium Level 137 MEQ/L Potassium Level 5.1 MEQ/L Chloride Level 106 MEQ/L Carbon Dioxide Level 21.4 MEQ/L Anion Gap 10 MEQ/L Estimat Glomerular Filtration Rate 13 ML/MIN Troponin I 0.05 NG/ML B-Type Natriuretic Peptide 2973 PG/ML MDM Medical Decision Making Medical Screen Exam Complete: Yes Emergency Medical Condition: Yes Medical Record Reviewed: Yes Differential Diagnosis Differential includes CHF, asthma, anasarca, electrolyte imbalance Narrative Course Chest x-ray shows compensated cardiomegaly. It is somewhat of previous x-rays. EKG shows left atrial enlargement and left ventricular hypertrophy with ST T- wave changes. The EKG is similar to an EKG that was obtained on March 23, 2017 her BUNs today is 71 with creatinine of 4.2. Her BNP is 2973. Reviewing old charts shows that her head and usually runs in the twos Diagnosis Primary Impression: TIMOTHY (acute kidney injury) Additional Impression: Eugene Pedraza MD Jul 26, 2017 11:47
[2017-07-26 11:59] LABS: AUTOMATED NEUTROPHIL # 4.8 TH/MM3 (1.8-7.7); BASOPHIL # 0.1 TH/MM3 (0-0.2); BASOPHIL % 1.4 % (0.0-2.0); EOSINOPHIL # 0.2 TH/MM3 (0-0.4); EOSINOPHIL % 2.3 % (0.0-4.0); HEMATOCRIT 34.3 % (35.0-46.0); LYMPH % 20.2 % (9.0-44.0); LYMPHOCYTE # 1.4 TH/MM3 (1.0-4.8); MEAN CORPUSCULAR HEMOGLOBIN 27.5 PG (27.0-34.0); MEAN CORPUSCULAR HGB CONC 32.3 % (32.0-36.0); MONO % 6.4 % (0.0-8.0); NEUT % 69.7 % (16.0-70.0); PLATELET COUNT 195 TH/MM3 (150-450); RED BLOOD COUNT 4.03 MIL/MM3 (4.00-5.30); RED CELL DISTRIBUTION WIDTH 16.5 % (11.6-17.2); WHITE BLOOD COUNT 6.9 TH/MM3 (4.0-11.0)
[2017-07-26 12:02] LABS: HEMO FLAGS DIFF FINAL
[2017-07-26 12:07] LABS: CHLORIDE 106 MEQ/L (98-107); POTASSIUM 5.1 MEQ/L (3.5-5.1); SODIUM (NA) 137 MEQ/L (136-145)
[2017-07-26 12:10] LABS: ANION GAP 10 MEQ/L (5-15); APTT (PATIENT) 23.8 SEC (24.3-30.1); BICARBONATE 21.4 MEQ/L (21.0-32.0); BLOOD UREA NITROGEN 71 MG/DL (7-18); PROTHROMBIN TIME - PATIENT 11.3 SEC (9.8-11.6)
[2017-07-26 12:13] LABS: ALT (GPT) 51 U/L (10-53); AST (GOT) 32 U/L (15-37); GLOMERULAR FILTRATION RATE 13 ML/MIN (>89)
[2017-07-26 12:14] LABS: MAGNESIUM 1.8 MG/DL (1.5-2.5)
[2017-07-26 12:15] LABS: TOTAL BILIRUBIN ADULT 0.3 MG/DL (0.2-1.0)
[2017-07-26 12:16] LABS: ALKALINE PHOSPHATASE 93 U/L (45-117)
--- NOTE | 2017-07-26 12:28 | RADRPT ---
EXAM DATE/TIME: 07/26/2017 12:12 [facility] COMPARISON: CHEST SINGLE AP, March 23, 2017, 11:54. INDICATIONS : Short of breath. MEDICAL HISTORY : Cardiovascular disease. SURGICAL HISTORY : Pacemaker. ENCOUNTER: Initial ACUITY: 1 day PAIN SCORE: 7/10 LOCATION: Bilateral chest FINDINGS: Pacemaker device is noted with control pack over the left chest. Lungs are focally clear. No pleural effusion is evident. Cardiac contour is stable with mild cardiac enlargement. CONCLUSION: Stable chest. Compensated cardiomegaly. Josef Moe MD on July 26, 2017 at 12:25 Board Certified Radiologist. This report was verified electronically.
[2017-07-26] MEDS ORDERED: ONDANSETRON HCL 4 MG/2 ML VIAL IV PUSH ONE (12:45)
[2017-07-26] MEDS ORDERED: MORPHINE SULFATE 8 MG/ML INJ IV PUSH ONE (12:45)
[2017-07-26] MEDS ORDERED: BUMETANIDE INJ 1 MG/4 ML VIAL IV PUSH ONE (13:00)
[2017-07-26] MEDS ORDERED: ACETAMINOPHEN 325 MG TAB PO PRN (13:30)
[2017-07-26] MEDS ORDERED: SODIUM CHLORIDE 0.9% FLUSH 10 ML FLUSH IV FLUSH PRN (13:30)
[2017-07-26] MEDS ORDERED: NALOXONE HCL 0.4 MG/ML AMP IV PUSH PRN (13:30)
[2017-07-26] MEDS: HEPARIN SODIUM - SQ 10,000 UNITS/ML VIAL SQ SCH ×2 (13:30→20:27)
--- NOTE | 2017-07-26 15:28 | HHI.HP ---
[facility] Lucio Andrade DO Admission Diagnosis ANASARCA, CHF, TIMOTHY Diagnoses: Chief Complaint: Swelling Travel History International Travel<30 Days: No Contact w/Intl Traveler <30 Da: No Traveled to Known Affected Are: No History of Present Illness This patient is a 27-year-old female with a history of cardiomyopathy and EF severely reduced requiring defibrillator placement. She has been lost to follow-up multiple times. She presents to the emergency room with increased lower extremity edema and vulvar swelling over the last week. She says she was incarcerated and was incarcerated for about 75 days. She was released on Saturday (3 days ago) and noted that the swelling she had seemed to get worse. She was not short of breath, she notes no chest pain, she has not had any fevers or chills. She says she has been taking her medications for heart failure and has not had any trouble getting them. She also requests Dilaudid, muscle relaxers which she has been unable to get feels that she has been incarcerated. She does not know the name of the provider who prescribed her medications and admits that she has chronic pain issues. She is also quite sleepy after receiving morphine in the emergency room. She has chronic kidney disease which is likely cardiorenal in nature. The patient has been recommended for observation the hospital due to edema and poor follow-up. Review of Systems Constitutional: DENIES: Diaphoretic episodes, Fatigue, Fever, Weight gain, Weight loss, Chills, Dizziness, Change in appetite, Night Sweats Endocrine: DENIES: Abnorml menstrual pattern, Heat/cold intolerance, Polydipsia , Polyuria, Polyphagia Eyes: DENIES: Blurred vision, Eye pain Ears, nose, mouth, throat: DENIES: Tinnitus, Hearing loss, Vertigo, Nasal discharge, Oral lesions, Throat pain, Hoarseness, Ear Pain, Running Nose, Epistaxis, Sinus Pain, Toothache, Odynophagia Respiratory: DENIES: Apneas, Cough, Snoring, Wheezing, Hemoptysis, Sputum production, Shortness of breath Cardiovascular: COMPLAINS OF: Lower Extremity Edema, DENIES: Chest pain, Palpitations, Syncope, Dyspnea on Exertion, PND, Orthopnea, Claudication Gastrointestinal: DENIES: Abdominal pain, Black stools, Bloody stools, Constipation, Diarrhea, Nausea, Vomiting, Difficulty Swallowing, Anorexia Genitourinary: DENIES: Abnormal vaginal bleeding, Dysmenorrhea, Dyspareunia, Sexual dysfunction, Urinary frequency, Urinary incontinence, Urgency, Hematuria , Dysuria, Nocturia, Vaginal discharge Musculoskeletal: DENIES: Joint pain, Muscle aches, Stiffness, Joint Swelling, Back pain, Neck pain Integumentary: DENIES: Abnormal pigmentation, Pruritus, Rash, Nail changes, Breast masses, Breast skin changes, Nipple discharge Hematologic/lymphatic: DENIES: Bruising, Lymphadenopathy Immunologic/allergic: DENIES: Eczema, Urticaria Neurologic: DENIES: Abnormal gait, Headache, Localized weakness, Paresthesias, Seizures, Speech Problems, Tremor, Poor Balance Psychiatric: DENIES: Anxiety, Confusion, Mood changes, Depression, Hallucinations, Agitation, Suicidal Ideation, Homicidal Ideation, Delusions Except as stated in HPI: all other systems reviewed are Neg Past Family Social History Past Medical History Cardiomyopathy, Poor medical adherence Chronic kidney disease/cardiorenal syndrome Past Surgical History Defibrillator Cholecystectomy Reported Medications Reviewed in the EMR, patient takes a beta manjit and her Bumex but also says she takes Dilaudid, muscle relaxers etc. Allergies: Coded Allergies: ketorolac (Unverified Adverse Reaction, Mild, SHAKING, 07/26/17) Active Ordered Medications Reviewed in the EMR Family History Hypertension Social History Recently incarcerated, was released Saturday of this week Lives with her parents Physical Exam Vital Signs Vital Signs Date Time Temp Pulse Resp B/P (MAP) Pulse Ox O2 Delivery O2 Flow Rate FiO2 07/26/17 13:55 97.0 76 20 119/88 (98) 90 07/26/17 13:28 07/26/17 12:50 85 18 125/79 (94) 98 07/26/17 11:26 98.5 87 20 132/82 (99) 99 Physical Exam GENERAL: This is a well-nourished, well-developed patient, in no apparent distress. SKIN: No rashes, ecchymoses or lesions. Cool and dry. HEAD: Atraumatic. Normocephalic. No temporal or scalp tenderness. EYES: Pupils equal round and reactive. Extraocular motions intact. No scleral icterus. No injection or drainage. ENT: Nose without bleeding, purulent drainage or septal hematoma. Throat without erythema, tonsillar hypertrophy or exudate. Uvula midline. Airway patent. NECK: Trachea midline. No JVD or lymphadenopathy. Supple, nontender, no meningeal signs. CARDIOVASCULAR: Regular rate and rhythm without murmurs, gallops, or rubs. RESPIRATORY: Clear to auscultation. Breath sounds equal bilaterally. No wheezes (upper airway heavy breathing causing extraneous sounds), rales, or rhonchi. GASTROINTESTINAL: Abdomen soft, non-tender, nondistended. No hepato-splenomegaly , or palpable masses. No guarding. MUSCULOSKELETAL: Extremities without clubbing, cyanosis, but there is +3 bilateral lower extremity edema. No joint tenderness, effusion, or edema noted. No calf tenderness. Negative Homans sign bilaterally. NEUROLOGICAL: Awake and alert. Cranial nerves II through XII intact. Motor and sensory grossly within normal limits. Five out of 5 muscle strength in all muscle groups. Normal speech. Laboratory Laboratory Tests Test 07/26/17 11:45 White Blood Count 6.9 Red Blood Count 4.03 Hemoglobin 11.1 Hematocrit 34.3 Mean Corpuscular Volume 85.0 Mean Corpuscular Hemoglobin 27.5 Mean Corpuscular Hemoglobin Concent 32.3 Red Cell Distribution Width 16.5 Platelet Count 195 Mean Platelet Volume 10.0 Neutrophils (%) (Auto) 69.7 Lymphocytes (%) (Auto) 20.2 Monocytes (%) (Auto) 6.4 Eosinophils (%) (Auto) 2.3 Basophils (%) (Auto) 1.4 Neutrophils # (Auto) 4.8 Lymphocytes # (Auto) 1.4 Monocytes # (Auto) 0.4 Eosinophils # (Auto) 0.2 Basophils # (Auto) 0.1 CBC Comment DIFF FINAL Differential Comment Prothrombin Time 11.3 Prothromb Time International Ratio 1.0 Activated Partial Thromboplast Time 23.8 Blood Urea Nitrogen 71 Creatinine 4.20 Random Glucose 139 Total Protein 5.8 Albumin 2.3 Calcium Level 7.6 Magnesium Level 1.8 Alkaline Phosphatase 93 Aspartate Amino Transf (AST/SGOT) 32 Alanine Aminotransferase (ALT/SGPT) 51 Total Bilirubin 0.3 Sodium Level 137 Potassium Level 5.1 Chloride Level 106 Carbon Dioxide Level 21.4 Anion Gap 10 Estimat Glomerular Filtration Rate 13 Troponin I 0.05 B-Type Natriuretic Peptide 2973 Result Diagram: 07/26/17 1145 07/26/17 1145 Imaging Last Impressions Chest X-Ray 07/26/17 1141 Signed Impressions: Service Date/Time: Wednesday, July 26, 2017 12:12 - CONCLUSION: Stable chest. Compensated cardiomegaly. MD Percy Ryan VTE Risk Assessment Caphetal VTE Risk Assessment: Mod/High Risk (score >= 2) Caprini Risk Assessment Model Point Value = 1 Point Value = 2 Point Value = 3 Point Value = 5 Age 41-60 Minor surgery BMI > 25 kg/m2 Swollen legs Varicose veins or History of unexplained or recurrent spontaneous Oral contraceptives or hormone replacement Sepsis (< 1 month) Serious lung disease, including pneumonia (< 1 month) Abnormal pulmonary function Acute myocardial infarction Congestive heart failure (< 1 month) History of inflammatory bowel disease Medical patient at bed rest Age 61-74 Arthroscopic surgery Major open surgery (> 45 min) Laparoscopic surgery (> 45 min) Malignancy Confined to bed (> 72 hours) Immobilizing plaster cast Central venous access Age >= 75 History of VTE Family history of VTE Factor V Leiden Prothrombin [id number] Lupus anticoagulant Anticardiolipin antibodies Elevated serum homocysteine Heparin-induced thrombocytopenia Other congenital or acquired thrombophilia Stroke (< 1 month) Elective arthroplasty Hip, pelvis, or leg fracture Acute spinal cord injury (< 1 month) Prophylaxis Regimen Total Risk Factor Score Risk Level Prophylaxis Regimen 0-1 Low Early ambulation 2 Moderate Order ONE of the following: *Sequential Compression Device (SCD) *Heparin 5000 units SQ BID 3-4 Higher Order ONE of the following medications: *Heparin 5000 units SQ TID *Enoxaparin/Lovenox 40 mg SQ daily (WT < 150 kg, CrCl > 30 mL/min) *Enoxaparin/Lovenox 30 mg SQ daily (WT < 150 kg, CrCl > 10-29 mL/min) *Enoxaparin/Lovenox 30 mg SQ BID (WT < 150 kg, CrCl > 30 mL/min) AND/OR *Sequential Compression Device (SCD) 5 or more Highest Order ONE of the following medications: *Heparin 5000 units SQ TID (Preferred with Epidurals) *Enoxaparin/Lovenox 40 mg SQ daily (WT < 150 kg, CrCl > 30 mL/min) *Enoxaparin/Lovenox 30 mg SQ daily (WT < 150 kg, CrCl > 10-29 mL/min) *Enoxaparin/Lovenox 30 mg SQ BID (WT < 150 kg, CrCl > 30 mL/min) AND *Sequential Compression Device (SCD) Assessment and Plan Problem List: (1) Acute kidney injury ICD Code: N17.9 - Acute kidney failure, unspecified Status: Acute Plan: We'll follow clinically This is not very far from previous episode with worsening renal dysfunction (2) Bilateral lower extremity edema ICD Code: R60.0 - Localized edema Status: Acute Plan: We will add compression hose and continue with diuresis Continue patient education (3) Cardiomyopathy ICD Code: I42.9 - Cardiomyopathy, unspecified Status: Chronic Plan: Chronic post cardiomyopathy Cont BB,Bumex Avoid nephrotoxin (i.e. Blane inhibitors/ARB) patient will need to continue to follow-up with her lead assistant manager Dr. Guevara. Patient has defibrillator Repeated echocardiogram will be unfruitful Assessment and Plan I did advise the patient that drug seeking behavior would not be tolerated and she would not be given narcotics. I do not believe the narcotics will be helpful with her renal dysfunction and with her chronic narcotic dependence. She has been off of these medications for at least 75 days. She will need to follow-up with the pain management if she would like to continue these medications For now we will continue with medical management and her edema and electrolytes. Patient expressed understanding Rita Gregory MD Jul 26, 2017 15:28
[2017-07-26] MEDS: SODIUM CHLORIDE 0.9% FLUSH 10 ML FLUSH IV FLUSH SCH (20:26)
[2017-07-26] MEDS: CARVEDILOL 12.5 MG TAB PO SCH (20:27)
[2017-07-27 03:20] VITALS: BP 148/78; PULSE 79; RESP 16; TEMP 98.8; O2SAT 97
--- NOTE | 2017-07-27 05:20 | EKG ---
Date Performed: 07/26/2017 Time Performed: 11:37:38 PTAGE: 27 years EKG: Sinus rhythm POSSIBLE LEFT ATRIAL ENLARGEMENT LEFT VENTRICULAR HYPERTROPHY AND ST-T CHANGE POSSIBLE SEPTAL MYOCAR DIAL INFARCTION ABNORMAL ECG PREVIOUS TRACING : 03/23/2017 11.25 DOCTOR: Reynaldo Parker Interpretating Date/Time 07/27/2017 05:14:36
[2017-07-27 07:20] LABS: POTASSIUM 4.4 MEQ/L (3.5-5.1)
[2017-07-27 07:23] LABS: BICARBONATE 23.1 MEQ/L (21.0-32.0)
[2017-07-27 07:40] VITALS: PULSE 76
[2017-07-27 08:00] VITALS: BP 127/86; PULSE 76; RESP 18; TEMP 98.1; O2SAT 98
[2017-07-27] MEDS: HEPARIN SODIUM - SQ 10,000 UNITS/ML VIAL SQ SCH (08:49)
[2017-07-27] MEDS: SODIUM CHLORIDE 0.9% FLUSH 10 ML FLUSH IV FLUSH SCH (08:50)
[2017-07-27] MEDS: CARVEDILOL 12.5 MG TAB PO SCH (08:50)
--- NOTE | 2017-07-27 10:40 | HHI.DCPOC ---
Discharge Care Plan Diagnosis: (1) Cardiorenal syndrome (2) Cardiomyopathy Goals to Promote Your Health * To prevent worsening of your condition and complications * To maintain your health at the optimal level Directions to Meet Your Goals Take your medications as prescribed Follow your dietary instruction Follow activity as directed Keep your appointments as scheduled Take your immunizations and boosters as scheduled If your symptoms worsen call your PCP, if no PCP go to Urgent Care Center or Emergency Room Smoking is Dangerous to Your Health. Avoid second hand smoke Call the 24-hour hour crisis hotline for domestic abuse at Rita Gregory MD Jul 27, 2017 10:40
--- NOTE | 2017-07-27 10:47 | HHI.DS ---
Discharge Summary Admission Date Jul 26, 2017 at 12:49 Discharge Date: Jul 27, 2017 Admitting Diagnosis ANASARCA, CHF, TIMOTHY (1) Acute kidney injury ICD Code: N17.9 - Acute kidney failure, unspecified Status: Acute (2) Bilateral lower extremity edema ICD Code: R60.0 - Localized edema Status: Acute (3) Cardiomyopathy ICD Code: I42.9 - Cardiomyopathy, unspecified Status: Chronic Procedures none Brief History - From Admission This patient is a 27-year-old female with a history of cardiomyopathy and EF severely reduced requiring defibrillator placement. She has been lost to follow-up multiple times. She presents to the emergency room with increased lower extremity edema and vulvar swelling over the last week. She says she was incarcerated and was incarcerated for about 75 days. She was released on Saturday (3 days ago) and noted that the swelling she had seemed to get worse. She was not short of breath, she notes no chest pain, she has not had any fevers or chills. She says she has been taking her medications for heart failure and has not had any trouble getting them. She also requests Dilaudid, muscle relaxers which she has been unable to get feels that she has been incarcerated. She does not know the name of the provider who prescribed her medications and admits that she has chronic pain issues. She is also quite sleepy after receiving morphine in the emergency room. She has chronic kidney disease which is likely cardiorenal in nature. The patient has been recommended for observation the hospital due to edema and poor follow-up. CBC/BMP: 07/26/17 1145 07/27/17 0626 Significant Findings Laboratory Tests Test 07/26/17 11:45 07/27/17 06:26 Hemoglobin 11.1 GM/DL (11.6-15.3) Hematocrit 34.3 % (35.0-46.0) Activated Partial Thromboplast Time 23.8 SEC (24.3-30.1) Blood Urea Nitrogen 71 MG/DL (7-18) 70 MG/DL (7-18) Creatinine 4.20 MG/DL (0.50-1.00) 4.00 MG/DL (0.50-1.00) Random Glucose 139 MG/DL (74-106) Total Protein 5.8 GM/DL (6.4-8.2) Albumin 2.3 GM/DL (3.4-5.0) Calcium Level 7.6 MG/DL (8.5-10.1) 8.1 MG/DL (8.5-10.1) Estimat Glomerular Filtration Rate 13 ML/MIN (>89) 13 ML/MIN (>89) B-Type Natriuretic Peptide 2973 PG/ML (0-100) Imaging Last Impressions Chest X-Ray 07/26/17 1141 Signed Impressions: Service Date/Time: Wednesday, July 26, 2017 12:12 - CONCLUSION: Stable chest. Compensated cardiomegaly. Josef Moe MD PE at Discharge GENERAL: This is a well-nourished, well-developed patient, in no apparent distress. CARDIOVASCULAR: Regular rate and rhythm without murmurs, gallops, or rubs. RESPIRATORY: Clear to auscultation. Breath sounds equal bilaterally. No wheezes , rales, or rhonchi. GASTROINTESTINAL: Abdomen soft, non-tender, nondistended. Normal active bowel sounds MUSCULOSKELETAL: Extremities without clubbing, cyanosis, or edema. NEURO: Alert & Oriented x4 to person, place, time, situation. Moves all ext x4 Pt update on day of discharge Patient seen today in follow-up for edema. She has diuresed nicely and the lower extremity edema is improved. She is still requesting pain medication. I did reinforce today for follow-up for treatment of her chronic medical condition and for outpatient pain management services. Care plan discussed with patient, friend and Alberto RN. Hospital Course Patient is a 27-year-old female with a cardiomyopathy and with poor adherence. Patient was diuresed and symptoms of edema improved. Electrolytes and renal function are stable as the patient has cardiorenal syndrome. She will need to follow-up with cardiology and with nephrology for further management. Pt Condition on Discharge: Good Discharge Disposition: Discharge Home Discharge Time: <= 30 minutes Discharge Instructions DIET: Follow Instructions for: As Tolerated, No Restrictions Activities you can perform: Regular-No Restrictions Follow up Referrals: PCP Follow-up - 2 Weeks Continued Medications: Bumetanide (Bumetanide) 2 Mg Tab 4 MG PO BID, TAB 0 Refills Carvedilol (Coreg) 12.5 Mg Tab 25 MG PO Q12HR for CMP, #120 TAB Rita Gregory MD Jul 27, 2017 10:47
[2017-07-27] MEDS ORDERED: BUMETANIDE INJ 1 MG/4 ML VIAL IV PUSH ONE (11:00)
== END 2017-07-27 12:02 | disposition home or self-care (01) ==
LOC: PHED 11:17 → PHEDA 12:49 → INTOOBSV 12:49 → PH3A 13:40
PROVIDERS: ADMIT Hospitalist; ATTEND Hospitalist
DX: I13.0 Hypertensive heart and chronic kidney disease with heart failure and stage 1 through stage 4 chronic kidney disease, or unspecified chronic kidney disease (principal); I50.9 Heart failure, unspecified; I42.9 Cardiomyopathy, unspecified; N18.9 Chronic kidney disease, unspecified; E11.22 Type 2 diabetes mellitus with diabetic chronic kidney disease; N17.9 Acute kidney failure, unspecified; R06.02 Shortness of breath; E78.00 Pure hypercholesterolemia, unspecified; K86.1 Other chronic pancreatitis; G62.9 Polyneuropathy, unspecified
CPT/HCPCS: 71010; 80048; 80053; 83735; 83880; 84484; 85025; 85610; 85730; 93005; 96372; 99285; G0378; J1644; J2270; J2405

== ENCOUNTER 2017-08-04 09:22 | Emergency (ER) | payer MEDICARE, MEDICAID ==
[~2017-08-04] VITALS: Ht 162.6 cm; Wt 90.0 kg
[~2017-08-04 09:22] MED LIST changes: -ALPR.5 PO; -BUME1TAB28 PO; +BUME2TAB PO; -CEFT500T3 PO; -CYCL1TAB29 PO; -FERR325T PO
[2017-08-04 09:30] VITALS: BP 139/83; PULSE 85; RESP 20; TEMP 98.3; O2SAT 98
[2017-08-04 10:20] VITALS: O2SAT 98
[2017-08-04] MEDS ORDERED: ONDANSETRON HCL 4 MG/2 ML VIAL IV PUSH ONE (10:30)
[2017-08-04] MEDS ORDERED: MORPHINE SULFATE 4 MG/ML INJ IV PUSH ONE (10:30)
[2017-08-04 10:34] LABS: AUTOMATED NEUTROPHIL # 3.5 TH/MM3 (1.8-7.7); BASOPHIL # 0.1 TH/MM3 (0-0.2); BASOPHIL % 1.2 % (0.0-2.0); EOSINOPHIL # 0.1 TH/MM3 (0-0.4); EOSINOPHIL % 2.7 % (0.0-4.0); HEMATOCRIT 31.8 % (35.0-46.0); HEMO FLAGS DIFF FINAL; LYMPH % 26.4 % (9.0-44.0); LYMPHOCYTE # 1.4 TH/MM3 (1.0-4.8); MEAN CELL VOLUME 84.8 FL (80.0-100.0); MEAN CORPUSCULAR HEMOGLOBIN 27.7 PG (27.0-34.0); MEAN CORPUSCULAR HGB CONC 32.6 % (32.0-36.0); MONO % 5.5 % (0.0-8.0); NEUT % 64.2 % (16.0-70.0); PLATELET COUNT 140 TH/MM3 (150-450); RED BLOOD COUNT 3.75 MIL/MM3 (4.00-5.30); RED CELL DISTRIBUTION WIDTH 16.7 % (11.6-17.2); WHITE BLOOD COUNT 5.4 TH/MM3 (4.0-11.0)
--- NOTE | 2017-08-04 10:34 | RADRPT ---
EXAM DATE/TIME: 08/04/2017 10:17 [facility] COMPARISON: CHEST SINGLE AP, July 26, 2017, 12:12. INDICATIONS : Short of breath. Chest pain. MEDICAL HISTORY : Cardiovascular disease. SURGICAL HISTORY : Pacemaker. ENCOUNTER: Initial ACUITY: 1 day PAIN SCORE: 10 LOCATION: Bilateral chest FINDINGS: A single view of the chest demonstrates the lungs to be symmetrically aerated without evidence of mas s, infiltrate or effusion. The heart size is enlarged but stable. There is a pacemaker overlying the left chest. The bony structures are stable. No significant change compared to the prior study.. CONCLUSION: No acute disease. No significant change has occurred. Stable cardiomegaly. Isaac Moon MD on August 04, 2017 at 10:32 Board Certified Radiologist. This report was verified electronically.
[2017-08-04 10:50] LABS: BICARBONATE 25.6 MEQ/L (21.0-32.0); POTASSIUM 4.5 MEQ/L (3.5-5.1)
[2017-08-04] MEDS ORDERED: BUMETANIDE INJ 1 MG/4 ML VIAL IV PUSH ONE (11:30)
[2017-08-04 12:00] VITALS: BP 130/81; PULSE 82; RESP 19; O2SAT 98
--- NOTE | 2017-08-04 12:07 | EKG ---
Date Performed: 08/04/2017 Time Performed: 10:07:22 PTAGE: 27 years EKG: Sinus rhythm LEFT VENTRICULAR HYPERTROPHY AND ST-T CHANGE ABNORMAL ECG No significant change from prior electroca rdiogram. PREVIOUS TRACING : 07/26/2017 11.37 DOCTOR: Juan Miguel Doyle Interpretating Date/Time 08/04/2017 12:06:04
--- NOTE | 2017-08-04 12:58 | PD ---
HPI Chief Complaint: Respiratory Symptoms Time Seen by Provider: 10:22 Travel History International Travel<30 days: No Contact w/Intl Traveler<30days: No Traveled to known affect area: No History of Present Illness HPI This is a 27-year-old female with a history of cardiomyopathy, CHF, presents today with complaints of shortness of breath. The patient states that she started experiencing shortness breath 2 days ago. She denies any fevers, chills. She states she feels a tightness in her chest. She is currently taking her medications as prescribed. He denies any productive cough. She states that she's had swelling in her legs but denies any worsening swelling. She states that she's gone down a bit. PFSH Past Medical History Hx Anticoagulant Therapy: No Arthritis: No Asthma: No Autoimmune Disease: No Blood Disorders: No Anxiety: Yes Depression: No Heart Rhythm Problems: Yes Cancer: No Cardiac Catheterization: Yes (AICD removed and another implant) Cardiomyopathy: Yes Cardiovascular Problems: Yes (CARDIOMYOPATHY/PACEMAKER/CHF) High Cholesterol: Yes Chemotherapy: No Chest Pain: Yes Congestive Heart Failure: Yes COPD: No Cerebrovascular Accident: No Diabetes: Yes Patient Takes Glucophage: No Diminished Hearing: No Endocrine: Yes Gastrointestinal Disorders: Yes (Pancreatitis) GERD: No Genitourinary: Yes (Chronic Kidney disease) Headaches: Yes Hiatal Hernia: No Heparin Induced Thrombocytopen: No Hypertension: Yes Immune Disorder: No Implanted Vascular Access Dvce: Yes Kidney Stones: No Musculoskeletal: Yes (Back) Neurologic: Yes (Neuropathy) Psychiatric: No Reproductive: Yes Respiratory: No Integumentary: Yes (skin swelling and various bruises abdo and bilateral arms from IV sticks) Immunizations Current: Yes Migraines: Yes Radiation Therapy: No Renal Failure: Yes Seizures: No Sickle Cell Disease: No Sleep Apnea: No Thyroid Disease: No Ulcer: No Tetanus Vaccination: < 5 Years Influenza Vaccination: No ?: Not LMP: 07/28/17 : 1 Para: 1 Miscarriage: 0 : 0 Tubal Ligation: Yes Past Surgical History Abdominal Surgery: Yes (CHOLECYSTECTOMY) AICD: Yes Arteriovenous Shunt: No Body Medical Devices: PT WORE EXTERNAL LIFE VEST 05/15/13, pacer/defibrillator Cardiac Surgery: Yes (pace maker 2015) Section: Yes Cholecystectomy: Yes Ear Surgery: No Endocrine Surgery: No Eye Surgery: No Genitourinary Surgery: No Gynecologic Surgery: Yes (, TUBAL) Insulin Pump: No Joint Replacement: No Oral Surgery: No Pacemaker: Yes Thoracic Surgery: No Tonsillectomy: Yes Other Surgery: Yes (, Tubal ligation, Gallbladder) Social History Alcohol Use: No Tobacco Use: No Substance Use: Yes (MARIJUANA) Allergies-Medications (Allergen,Severity, Reaction): Coded Allergies: niacin (Verified Allergy, Intermediate, 08/04/17) PT STATES SHE FEELS SHAKY AND SWEATY ketorolac (Unverified Adverse Reaction, Mild, SHAKING, 08/04/17) Reported Meds & Prescriptions Reported Meds & Active Scripts Active Coreg (Carvedilol) 12.5 Mg Tab 25 Mg PO Q12HR Reported Bumetanide 2 Mg Tab 4 Mg PO BID Review of Systems Except as stated in HPI: all other systems reviewed are Neg General / Constitutional: No: Fever, Chills HENT: No: Headaches, Lightheadedness, Neck Pain Cardiovascular: No: Chest Pain or Discomfort, Palpitations (tightness no pain) , Irregular Rhythm Respiratory: Positive: Shortness of Breath, No: Cough, Wheezing Gastrointestinal: No: Nausea, Vomiting, Abdominal Pain Genitourinary: No: Frequency, Dysuria, Decreased Urinary Output Musculoskeletal: Positive: Edema (chronic), No: Weakness, Pain Neurologic: No: Weakness, Dizziness, Headache Physical Exam Narrative GENERAL: [-] SKIN: Focused skin assessment warm/dry. HEAD: Atraumatic. Normocephalic. EYES: Pupils equal and round. No scleral icterus. No injection or drainage. ENT: No nasal bleeding or discharge. Mucous membranes pink and moist. NECK: Trachea midline. No JVD. CARDIOVASCULAR: Regular rate and rhythm. No murmur appreciated. RESPIRATORY: No accessory muscle use. Clear to auscultation. Breath sounds equal bilaterally. GASTROINTESTINAL: Abdomen soft, non-tender, nondistended. Hepatic and splenic margins not palpable. MUSCULOSKELETAL: No obvious deformities. No clubbing. No cyanosis. No edema. NEUROLOGICAL: Awake and alert. No obvious cranial nerve deficits. Motor grossly within normal limits. Normal speech. PSYCHIATRIC: Appropriate mood and affect; insight and judgment normal. Data Data Last Documented VS Vital Signs Date Time Temp Pulse Resp B/P (MAP) Pulse Ox O2 Delivery O2 Flow Rate FiO2 08/04/17 10:21 98 Nasal Cannula 2.00 08/04/17 09:40 84 20 08/04/17 09:30 98.3 139/83 (101) Orders Orders Electrocardiogram (08/04/17 09:57) Complete Blood Count With Diff (08/04/17 09:57) Basic Metabolic Panel (Bmp) (08/04/17 09:57) Ckmb (Isoenzyme) Profile (08/04/17 09:57) Troponin I (08/04/17 09:57) Chest, Single Ap (08/04/17 09:57) Iv Access Insert/Monitor (08/04/17 09:57) Ecg Monitoring (08/04/17 09:57) Oxygen Administration (08/04/17 09:57) Oximetry (08/04/17 09:57) B-Type Natriuretic Peptide (08/04/17 10:23) Morphine Inj (Morphine Inj) (08/04/17 10:30) Ondansetron Inj (Zofran Inj) (08/04/17 10:30) Bumetanide Inj (Bumex Inj) (08/04/17 11:30) Labs Laboratory Tests Test 08/04/17 10:00 White Blood Count 5.4 TH/MM3 Red Blood Count 3.75 MIL/MM3 Hemoglobin 10.4 GM/DL Hematocrit 31.8 % Mean Corpuscular Volume 84.8 FL Mean Corpuscular Hemoglobin 27.7 PG Mean Corpuscular Hemoglobin Concent 32.6 % Red Cell Distribution Width 16.7 % Platelet Count 140 TH/MM3 Mean Platelet Volume 10.3 FL Neutrophils (%) (Auto) 64.2 % Lymphocytes (%) (Auto) 26.4 % Monocytes (%) (Auto) 5.5 % Eosinophils (%) (Auto) 2.7 % Basophils (%) (Auto) 1.2 % Neutrophils # (Auto) 3.5 TH/MM3 Lymphocytes # (Auto) 1.4 TH/MM3 Monocytes # (Auto) 0.3 TH/MM3 Eosinophils # (Auto) 0.1 TH/MM3 Basophils # (Auto) 0.1 TH/MM3 CBC Comment DIFF FINAL Differential Comment Blood Urea Nitrogen 66 MG/DL Creatinine 3.64 MG/DL Random Glucose 126 MG/DL Calcium Level 8.5 MG/DL Sodium Level 140 MEQ/L Potassium Level 4.5 MEQ/L Chloride Level 105 MEQ/L Carbon Dioxide Level 25.6 MEQ/L Anion Gap 9 MEQ/L Estimat Glomerular Filtration Rate 15 ML/MIN Total Creatine Kinase 39 U/L Troponin I 0.03 NG/ML B-Type Natriuretic Peptide 3068 PG/ML MDM Medical Decision Making Medical Screen Exam Complete: Yes Emergency Medical Condition: Yes Differential Diagnosis CHF versus ACS versus anasarca Narrative Course 27-year-old female history of cardiomyopathy who has an AICD pacer in place, presents today with complaints of shortness of breath. Patient also reports tightness across her chest. She says it's not pain is just tightness and it feels as though she has some fluid in her lungs. Patient's EKG shows no acute changes. The patient's cardiac enzymes are within normal limits. BNP is 3000. Chest x-ray shows no evidence of acute shortness of breath. The patient is in no respiratory distress. I've given her 1 mg of Bumex which she takes at home. She's feels much improved. She has no discomfort at time of discharge. She'll be discharged told to continue her medication. She'll follow up with her primary care doctor and footwear sales coordinator as needed. Diagnosis Primary Impression: Dyspnea Additional Impressions: History of CHF (congestive heart failure) Diabetes type 2, controlled Disposition: 01 DISCHARGE HOME Condition: Stable Elbert Johnston MD Aug 04, 2017 12:58
[2017-08-04 13:30] VITALS: BP 134/81; PULSE 81; RESP 17; O2SAT 97
[2017-08-04] MEDS ORDERED: CEPH-460 PO (14:18)
== END 2017-08-04 14:20 | disposition home or self-care (01) ==
LOC: NEPE 09:22
DX: I13.0 Hypertensive heart and chronic kidney disease with heart failure and stage 1 through stage 4 chronic kidney disease, or unspecified chronic kidney disease (principal); I50.9 Heart failure, unspecified; E11.22 Type 2 diabetes mellitus with diabetic chronic kidney disease; N18.9 Chronic kidney disease, unspecified
CPT/HCPCS: 71010; 80048; 82550; 83880; 84484; 85025; 93005; 96374; 96375; 99285; J2270; J2405

== ENCOUNTER 2017-08-11 00:47 | Emergency (ER) | payer MEDICARE, MEDICAID ==
[~2017-08-11] VITALS: Ht 160 cm; Wt 80.0 kg
[~2017-08-11 00:47] MED LIST changes: +CEPH-460 PO
[2017-08-11 01:05] VITALS: BP 143/90; PULSE 94; RESP 22; TEMP 98.2; O2SAT 98
[2017-08-11] MEDS ORDERED: INSU100V2 SQ (01:15)
--- NOTE | 2017-08-11 01:26 | PD ---
HPI Chief Complaint: Respiratory Symptoms Time Seen by Provider: 01:18 Travel History International Travel<30 days: No Contact w/Intl Traveler<30days: No Traveled to known affect area: No History of Present Illness HPI Patient is a 27-year-old female with a history of cardiomyopathy secondary to cardiomyopathy of , presents to emergency Department with 3 week history of shortness of breath, she states when she walked in the bathroom to her bed tonight she became extremely short of breath and this would cause her to come in emergency department and be seen. She denies any chest pain, she is also endorsing some increasing swelling of her lower extremities as well as her abdomen, she was recently incarcerated, she states she doesn't think she was getting her medicines properly in long-term, she is followed by Dr. Meléndez has not seen him since her discharge. She states her symptoms are severe, gradually worsening, 3 weeks' duration PFSH Past Medical History Hx Anticoagulant Therapy: No Arthritis: No Asthma: No Autoimmune Disease: No Blood Disorders: No Anxiety: Yes Depression: No Heart Rhythm Problems: Yes Cancer: No Cardiac Catheterization: Yes Cardiomyopathy: Yes Cardiovascular Problems: Yes High Cholesterol: Yes Chemotherapy: No Chest Pain: Yes Congestive Heart Failure: Yes COPD: No Cerebrovascular Accident: No Diabetes: Yes Patient Takes Glucophage: No Diminished Hearing: No Endocrine: Yes Gastrointestinal Disorders: Yes (Pancreatitis) GERD: No Genitourinary: Yes (Chronic Kidney disease) Headaches: Yes Hiatal Hernia: No Heparin Induced Thrombocytopen: No Hypertension: Yes Immune Disorder: No Implanted Vascular Access Dvce: Yes Kidney Stones: No Musculoskeletal: Yes (Back) Neurologic: Yes (Neuropathy) Psychiatric: No Reproductive: Yes Respiratory: No Integumentary: Yes (skin swelling and various bruises abdo and bilateral arms from IV sticks) Immunizations Current: Yes Migraines: Yes Radiation Therapy: No Renal Failure: Yes Seizures: No Sickle Cell Disease: No Sleep Apnea: No Thyroid Disease: No Ulcer: No Tetanus Vaccination: < 5 Years ?: Not LMP: JUL 2017 : 1 Para: 1 Miscarriage: 0 : 0 Tubal Ligation: Yes Past Surgical History Abdominal Surgery: Yes (CHOLECYSTECTOMY) AICD: Yes Arteriovenous Shunt: No Body Medical Devices: PT WORE EXTERNAL LIFE VEST 05/15/13, pacer/defibrillator Cardiac Surgery: Yes (pacemaker/def 2015) Section: Yes Cholecystectomy: Yes Ear Surgery: No Endocrine Surgery: No Eye Surgery: No Genitourinary Surgery: No Gynecologic Surgery: Yes (, TUBAL) Insulin Pump: No Joint Replacement: No Oral Surgery: No Pacemaker: Yes Thoracic Surgery: No Tonsillectomy: Yes Other Surgery: Yes (, Tubal ligation, Gallbladder) Social History Alcohol Use: No Tobacco Use: No Substance Use: No Allergies-Medications (Allergen,Severity, Reaction): Coded Allergies: niacin (Verified Allergy, Intermediate, 08/11/17) PT STATES SHE FEELS SHAKY AND SWEATY ketorolac (Unverified Adverse Reaction, Mild, SHAKING, 08/11/17) Reported Meds & Prescriptions Reported Meds & Active Scripts Active Coreg (Carvedilol) 12.5 Mg Tab 25 Mg PO Q12HR Reported Humulin R Inj (Insulin Human Regular) 1,000 Unit/10 Ml Vial 2-10 Units SQ TIDAC PRN IMPORTANT TO EAT A MEAL WITHIN 30-60 MINUTES OF DOSING Bumetanide 2 Mg Tab 4 Mg PO BID Review of Systems Except as stated in HPI: all other systems reviewed are Neg Physical Exam Narrative GENERAL: WD/obese female in nad. SKIN: Warm and dry. HEAD: Atraumatic. Normocephalic. EYES: Pupils equal and round. No scleral icterus. No injection or drainage. ENT: No nasal bleeding or discharge. Mucous membranes pink and moist. NECK: Trachea midline. No JVD. CARDIOVASCULAR: Regular rate and rhythm. RESPIRATORY: No accessory muscle use. Clear to auscultation. Breath sounds equal bilaterally. GASTROINTESTINAL: Abdomen is obese, soft, non-tender, nondistended. Hepatic and splenic margins not palpable. I appreciate no fluid wave, no edema of her abdomen only a panus. MUSCULOSKELETAL: Extremities without clubbing, cyanosis, minimal edema of bilateral lower extremities. No obvious deformities. NEUROLOGICAL: Awake and alert. No obvious cranial nerve deficits. Motor grossly within normal limits. Five out of 5 muscle strength in the arms and legs. Normal speech. PSYCHIATRIC: Appropriate mood and affect; insight and judgment normal. Data Data Last Documented VS Vital Signs Date Time Temp Pulse Resp B/P (MAP) Pulse Ox O2 Delivery O2 Flow Rate FiO2 08/11/17 03:10 75 16 135/64 (87) 99 Room Air 08/11/17 01:05 98.2 Orders Orders Complete Blood Count With Diff (08/11/17:23) Comprehensive Metabolic Panel (08/11/17:23) Magnesium (Mg) (08/11/17:23) Prothrombin Time / Inr (Pt) (08/11/17:23) Act Partial Throm Time (Ptt) (08/11/17:23) Ecg Monitoring (08/11/17:23) Iv Access Insert/Monitor (08/11/17:23) Oximetry (08/11/17:23) Oxygen Administration (08/11/17:23) Sodium Chloride 0.9% Flush (Ns Flush) (08/11/17 01:30) Chest, Pa & Lat (08/11/17:23) Furosemide Inj (Lasix Inj) (08/11/17 01:30) Acetaminophen (Tylenol) (08/11/17 03:45) Dicyclomine (Bentyl) (08/11/17 03:45) Ed Poc Ultrasound (08/11/17 ) Ed Discharge Order (08/11/17 03:46) Electrocardiogram (08/11/17 01:09) Labs Laboratory Tests Test 08/11/17 01:20 White Blood Count 6.9 TH/MM3 Red Blood Count 3.75 MIL/MM3 Hemoglobin 10.6 GM/DL Hematocrit 32.2 % Mean Corpuscular Volume 85.7 FL Mean Corpuscular Hemoglobin 28.2 PG Mean Corpuscular Hemoglobin Concent 33.0 % Red Cell Distribution Width 17.1 % Platelet Count 153 TH/MM3 Mean Platelet Volume 11.0 FL Neutrophils (%) (Auto) 67.0 % Lymphocytes (%) (Auto) 25.3 % Monocytes (%) (Auto) 4.7 % Eosinophils (%) (Auto) 1.8 % Basophils (%) (Auto) 1.2 % Neutrophils # (Auto) 4.6 TH/MM3 Lymphocytes # (Auto) 1.8 TH/MM3 Monocytes # (Auto) 0.3 TH/MM3 Eosinophils # (Auto) 0.1 TH/MM3 Basophils # (Auto) 0.1 TH/MM3 CBC Comment DIFF FINAL Differential Comment Prothrombin Time 11.7 SEC Prothromb Time International Ratio 1.1 RATIO Activated Partial Thromboplast Time 23.6 SEC Blood Urea Nitrogen 50 MG/DL Creatinine 3.99 MG/DL Random Glucose 112 MG/DL Total Protein 5.7 GM/DL Albumin 2.4 GM/DL Calcium Level 7.8 MG/DL Magnesium Level 2.0 MG/DL Alkaline Phosphatase 101 U/L Aspartate Amino Transf (AST/SGOT) 21 U/L Alanine Aminotransferase (ALT/SGPT) 45 U/L Total Bilirubin 0.3 MG/DL Sodium Level 142 MEQ/L Potassium Level 4.2 MEQ/L Chloride Level 109 MEQ/L Carbon Dioxide Level 25.9 MEQ/L Anion Gap 7 MEQ/L Estimat Glomerular Filtration Rate 13 ML/MIN MDM Medical Decision Making Medical Screen Exam Complete: Yes Emergency Medical Condition: Yes Differential Diagnosis Acute CHF, ARF, SOB, ami unlikely, PE excluded by wells and perc criteria. Narrative Course Patient roomed in ED. Review of the patients records show that in the beginning of this month she was admitted for TIMOTHY with cr now 3 from 2, monitored for several days, likely her new baseline. Patient is not anasarcous today and has clear CXR with minimal pedal edema, lasix given and patient diuresing slowly. Her labs are similar to discharge values a few weeks ago. She was seen one time in ER between inpatient discharge and now also with similar complaints and labs values. My impression of this patient is cardiomyopathy with CHF which is chronic. She is now developing some baseline SOB and would do well to follow closely with her sales associate cashier which she has an appointment with next week. I do not see any benefit for admission for her at this time but she was counseled closely on return to ED criteria. Last 24 hours Impressions Chest X-Ray 08/11/17 0123 Signed Impressions: Service Date/Time: Friday, August 11, 2017 01:37 - CONCLUSION: Cardiomegaly with no definite pulmonary edema. Brannon Savage MD Diagnosis Primary Impression: Pedal edema Patient Instructions: Edema (DC), General Instructions, Heart Failure (DC) Additional Instructions: Call your sales associate cashier and roofing machine operator first thing on Saturday morning. Any worsening shortness of breath return to the emergency department. Disposition: 01 DISCHARGE HOME Condition: Stable Monroe Crane MD Aug 11, 2017 01:26
[2017-08-11] MEDS ORDERED: SODIUM CHLORIDE 0.9% FLUSH 10 ML FLUSH IVF PRN (01:30)
[2017-08-11] MEDS ORDERED: FUROSEMIDE 100 MG/10 ML VIAL IV PUSH ONE (01:30)
[2017-08-11 01:42] LABS: AUTOMATED NEUTROPHIL # 4.6 TH/MM3 (1.8-7.7); BASOPHIL # 0.1 TH/MM3 (0-0.2); BASOPHIL % 1.2 % (0.0-2.0); EOSINOPHIL # 0.1 TH/MM3 (0-0.4); EOSINOPHIL % 1.8 % (0.0-4.0); HEMATOCRIT 32.2 % (35.0-46.0); HEMO FLAGS DIFF FINAL; LYMPH % 25.3 % (9.0-44.0); LYMPHOCYTE # 1.8 TH/MM3 (1.0-4.8); MEAN CELL VOLUME 85.7 FL (80.0-100.0); MEAN CORPUSCULAR HEMOGLOBIN 28.2 PG (27.0-34.0); MONO % 4.7 % (0.0-8.0); PLATELET COUNT 153 TH/MM3 (150-450); RED BLOOD COUNT 3.75 MIL/MM3 (4.00-5.30); RED CELL DISTRIBUTION WIDTH 17.1 % (11.6-17.2); WHITE BLOOD COUNT 6.9 TH/MM3 (4.0-11.0)
[2017-08-11 01:53] LABS: APTT (PATIENT) 23.6 SEC (24.3-30.1); INTERNATIONAL NORMALIZED RATIO 1.1 RATIO; PROTHROMBIN TIME - PATIENT 11.7 SEC (9.8-11.6)
--- NOTE | 2017-08-11 01:56 | RADRPT ---
EXAM DATE/TIME: 08/11/2017 01:37 [facility] COMPARISON: CHEST PA & LAT, January 27, 2017, 1:08. INDICATIONS : Chest pain and shortness of breath. MEDICAL HISTORY : Kidney disease, pancreatitis, post cardiomyopathy SURGICAL HISTORY : Pacemaker. ENCOUNTER: Initial ACUITY: 1 week PAIN SCORE: 3/10 LOCATION: Left chest FINDINGS: PA and lateral views of the chest were obtained again demonstrate a left subclavian transvenous pacer in place. The heart size is mildly enlarged with no new confluent infiltrates or effusions. The soft tissues and bony thorax remain intact. CONCLUSION: Cardiomegaly with no definite pulmonary edema. Brannon Savage MD on August 11, 2017 at 1:53 Board Certified Radiologist. This report was verified electronically.
[2017-08-11 02:14] LABS: ALKALINE PHOSPHATASE 101 U/L (45-117); TOTAL BILIRUBIN ADULT 0.3 MG/DL (0.2-1.0)
[2017-08-11 02:46] LABS: ALT (GPT) 45 U/L (10-53); ANION GAP 7 MEQ/L (5-15); AST (GOT) 21 U/L (15-37); BICARBONATE 25.9 MEQ/L (21.0-32.0); BLOOD UREA NITROGEN 50 MG/DL (7-18); CHLORIDE 109 MEQ/L (98-107); GLOMERULAR FILTRATION RATE 13 ML/MIN (>89); POTASSIUM 4.2 MEQ/L (3.5-5.1); SODIUM (NA) 142 MEQ/L (136-145)
[2017-08-11 03:10] VITALS: BP 135/64; PULSE 75; RESP 16; O2SAT 99
[2017-08-11] MEDS ORDERED: ACETAMINOPHEN 325 MG TAB PO ONE (03:45)
[2017-08-11] MEDS ORDERED: DICYCLOMINE HCL 10 MG CAP PO ONE (03:45)
--- NOTE | 2017-08-11 13:18 | EKG ---
Date Performed: 08/11/2017 Time Performed: 01:09:18 PTAGE: 27 years EKG: Sinus rhythm LEFT VENTRICULAR HYPERTROPHY AND ST-T CHANGE ABNORMAL ECG PREVIOUS TRACING : 08/04/2017 10.07 Compared to prior tracing no significant change DOCTOR: Carole Chance Interpretating Date/Time 08/11/2017 13:17:39
== END 2017-08-11 04:10 | disposition home or self-care (01) ==
LOC: NEPE 00:47
DX: R60.0 Localized edema (principal); I42.8 Other cardiomyopathies; I50.9 Heart failure, unspecified; E11.9 Type 2 diabetes mellitus without complications; I10 Essential (primary) hypertension; N19 Unspecified kidney failure; E78.00 Pure hypercholesterolemia, unspecified; Z79.4 Long term (current) use of insulin; Z86.79 Personal history of other diseases of the circulatory system; Z86.59 Personal history of other mental and behavioral disorders; Z87.19 Personal history of other diseases of the digestive system; Z87.39 Personal history of other diseases of the musculoskeletal system and connective tissue; Z86.69 Personal history of other diseases of the nervous system and sense organs
CPT/HCPCS: 71020; 80053; 83735; 85025; 85610; 85730; 93005; 96374; 99284; J1940

== ENCOUNTER 2017-08-13 08:59 | Inpatient (IN) | payer MEDICARE, MEDICAID ==
[2017-08-13] VITALS (7 sets, daily range): BP systolic 133–149; BP diastolic 83–95; PULSE 77–92; RESP 18–20; TEMP 98.8; O2SAT 97–99
[~2017-08-13] VITALS: Ht 162.6 cm; Wt 87.0 kg
[~2017-08-13 08:59] MED LIST changes: +INSU100V2 SQ
[2017-08-13] MEDS ORDERED: SODIUM CHLORIDE 0.9% FLUSH 10 ML FLUSH IVF PRN (09:30)
[2017-08-13] MEDS ORDERED: FUROSEMIDE 40 MG/4 ML VIAL IVP ONE (09:30)
--- NOTE | 2017-08-13 09:39 | PD ---
HPI Chief Complaint: Respiratory Symptoms Time Seen by Provider: 09:28 Travel History International Travel<30 days: No Contact w/Intl Traveler<30days: No Traveled to known affect area: No History of Present Illness HPI 27-year-old female presents with shortness of breath and cough over the past couple of days. She states she feels worse when she takes a deep breath or when she moves around. She states she has no other concurrent complaints at this time. She states she has been taking her diuretics like she should and following with her doctor regularly. She states Dr. anguiano is her physicist acoustics. She denies other modifying factors. PFSH Past Medical History Hx Anticoagulant Therapy: No Arthritis: No Asthma: No Autoimmune Disease: No Blood Disorders: No Anxiety: Yes Depression: No Heart Rhythm Problems: Yes Cancer: No Cardiac Catheterization: Yes Cardiomyopathy: Yes Cardiovascular Problems: Yes High Cholesterol: Yes Chemotherapy: No Chest Pain: Yes Congestive Heart Failure: Yes COPD: No Cerebrovascular Accident: No Diabetes: Yes Diminished Hearing: No Endocrine: Yes Gastrointestinal Disorders: Yes (Pancreatitis) GERD: No Genitourinary: Yes (Chronic Kidney disease) Headaches: Yes Hiatal Hernia: No Heparin Induced Thrombocytopen: No Hypertension: Yes Immune Disorder: No Implanted Vascular Access Dvce: Yes Kidney Stones: No Musculoskeletal: Yes (Back) Neurologic: Yes (Neuropathy) Psychiatric: No Reproductive: Yes Respiratory: Yes Integumentary: Yes (skin swelling and various bruises abdo and bilateral arms from IV sticks) Immunizations Current: Yes Migraines: Yes Radiation Therapy: No Renal Failure: Yes Seizures: No Sickle Cell Disease: No Sleep Apnea: No Thyroid Disease: No Ulcer: No : 1 Para: 1 Miscarriage: 0 : 0 Tubal Ligation: Yes Past Surgical History Abdominal Surgery: Yes (CHOLECYSTECTOMY) AICD: Yes Arteriovenous Shunt: No Body Medical Devices: PT WORE EXTERNAL LIFE VEST 05/15/13, pacer/defibrillator Cardiac Surgery: Yes (pacemaker/def 2016) Section: Yes Cholecystectomy: Yes Ear Surgery: No Endocrine Surgery: No Eye Surgery: No Genitourinary Surgery: No Gynecologic Surgery: Yes (, TUBAL) Insulin Pump: No Joint Replacement: No Oral Surgery: No Pacemaker: Yes Thoracic Surgery: No Tonsillectomy: Yes Other Surgery: Yes (, Tubal ligation, Gallbladder) Social History Alcohol Use: No Tobacco Use: No Substance Use: No Allergies-Medications (Allergen,Severity, Reaction): Coded Allergies: niacin (Verified Allergy, Intermediate, 08/13/17) PT STATES SHE FEELS SHAKY AND SWEATY ketorolac (Unverified Adverse Reaction, Mild, SHAKING, 08/13/17) Reported Meds & Prescriptions Reported Meds & Active Scripts Active Coreg (Carvedilol) 12.5 Mg Tab 25 Mg PO Q12HR Reported Bumetanide 2 Mg Tab 4 Mg PO BID Review of Systems Except as stated in HPI: all other systems reviewed are Neg Physical Exam Narrative GENERAL: Well-nourished, well-developed patient. SKIN: Warm and dry. HEAD: Normocephalic and atraumatic. EYES: No injection or drainage. ENT: No nasal drainage noted. NECK: Supple, trachea midline. CARDIOVASCULAR: Regular rate and rhythm RESPIRATORY: Faint wheezing bilaterally at apices. No accessory muscle use. GASTROINTESTINAL: Abdomen soft, non-tender EXTREMITIES: Mild lower extremity bilateral nonpitting edema around the ankles NEUROLOGICAL: Awake and alert. Motor and sensory grossly within normal limits. Normal speech. Data Data Last Documented VS Vital Signs Date Time Temp Pulse Resp B/P (MAP) Pulse Ox O2 Delivery O2 Flow Rate FiO2 08/13/17 09:53 81 18 98 Room Air 08/13/17 09:52 133/83 (100) 08/13/17 09:01 98.8 Orders Orders Complete Blood Count With Diff (08/13/17 09:22) Basic Metabolic Panel (Bmp) (08/13/17 09:22) B-Type Natriuretic Peptide (08/13/17 09:22) Act Partial Throm Time (Ptt) (08/13/17 09:22) Prothrombin Time / Inr (Pt) (08/13/17 09:22) Magnesium (Mg) (08/13/17 09:22) Ckmb (Isoenzyme) Profile (08/13/17 09:22) Troponin I (08/13/17 09:22) Iv Access Insert/Monitor (08/13/17 09:22) Electrocardiogram (08/13/17 09:22) Ecg Monitoring (08/13/17 09:22) Oximetry (08/13/17 09:22) Chest, Single Ap (08/13/17 09:22) Sodium Chloride 0.9% Flush (Ns Flush) (08/13/17 09:30) Furosemide Inj (Lasix Inj) (08/13/17 09:30) Acetaminophen (Tylenol) (08/13/17 10:15) Albuterol Neb (Albuterol Neb) (08/13/17 10:45) Consult Cardiology (08/13/17 ) Admit Order (Ed Use Only) (08/13/17 14:11) Labs Laboratory Tests Test 08/13/17 09:50 White Blood Count 5.1 TH/MM3 Red Blood Count 3.89 MIL/MM3 Hemoglobin 10.9 GM/DL Hematocrit 33.4 % Mean Corpuscular Volume 85.8 FL Mean Corpuscular Hemoglobin 28.1 PG Mean Corpuscular Hemoglobin Concent 32.7 % Red Cell Distribution Width 16.9 % Platelet Count 136 TH/MM3 Mean Platelet Volume 10.6 FL Neutrophils (%) (Auto) 74.3 % Lymphocytes (%) (Auto) 17.9 % Monocytes (%) (Auto) 5.0 % Eosinophils (%) (Auto) 1.7 % Basophils (%) (Auto) 1.1 % Neutrophils # (Auto) 3.8 TH/MM3 Lymphocytes # (Auto) 0.9 TH/MM3 Monocytes # (Auto) 0.3 TH/MM3 Eosinophils # (Auto) 0.1 TH/MM3 Basophils # (Auto) 0.1 TH/MM3 CBC Comment DIFF FINAL Differential Comment Prothrombin Time 11.9 SEC Prothromb Time International Ratio 1.1 RATIO Activated Partial Thromboplast Time 24.0 SEC Blood Urea Nitrogen 42 MG/DL Creatinine 4.01 MG/DL Random Glucose 107 MG/DL Calcium Level 8.4 MG/DL Magnesium Level 1.8 MG/DL Sodium Level 142 MEQ/L Potassium Level 3.7 MEQ/L Chloride Level 108 MEQ/L Carbon Dioxide Level 25.9 MEQ/L Anion Gap 8 MEQ/L Estimat Glomerular Filtration Rate 13 ML/MIN Total Creatine Kinase 37 U/L Troponin I 0.03 NG/ML B-Type Natriuretic Peptide 3368 PG/ML MDM Medical Decision Making Medical Screen Exam Complete: Yes Emergency Medical Condition: Yes Medical Record Reviewed: Yes (past history confirmed) Interpretation(s) CBC & BMP Diagram 08/13/17 09:50 Calcium Level 8.4 L, Magnesium Level 1.8 bnp is increasing from prior Last 24 hours Impressions Chest X-Ray 08/13/17 0922 Signed Impressions: Service Date/Time: Sunday, August 13, 2017 09:41 - CONCLUSION: The lungs are clear. Uli Lord MD Differential Diagnosis CHF, anemia, renal failure, URI, pneumonia Narrative Course Will check blood work, chest x-ray, EKG and dose with Lasix and reevaluate on recheck states only feeling a little better, bnp trending up, will admit for observation, patient agrees to plan, patient denies following with a oven worker here Physician Communication Physician Communication dr rios requests to discuss with her physicist acoustics and if can get follow up tommorrow can go home dr anguiano states to admit to [facility] and place on coreg, considering milyonatan anderson, will follow, consult nephrology dr rios agrees to admit Diagnosis Primary Impression: Acute on chronic systolic (congestive) heart failure Admitting Information Admitting Physician Requests: Observation Donna Honeycutt MD Aug 13, 2017 09:39
--- NOTE | 2017-08-13 09:49 | RADRPT ---
EXAM DATE/TIME: 08/13/2017 09:41 [place] COMPARISON: CHEST SINGLE AP, August 04, 2017, 10:17. INDICATIONS : Shortness of breath. MEDICAL HISTORY : Congestive heart failure. Hypercholesterolemia. Pancreatitis. Neuropathy.Migraines. Cardiomyopathy. C hest pain. Irregular heartbeat. HTN. Dyspnea. Chronic kidney. disease. Renal failure. UTI. Diabetes. Anxiety. SURGICAL HISTORY : Tonsillectomy.Pacemaker. Cholecystectomy.Cardiac cath. section. Tubal ligation. Dialysis. Bl ood transfusions. ENCOUNTER: Initial ACUITY: 3 days PAIN SCORE: 0/10 LOCATION: Bilateral chest FINDINGS: A single view of the chest demonstrates the lungs to be symmetrically aerated without evidence of mas s, infiltrate or effusion. The cardiomediastinal contours are unremarkable. Osseous structures are intact. Cardiac pacer with unipolar lead stable. CONCLUSION: The lungs are clear. Uli Lord MD on August 13, 2017 at 9:46 Board Certified Radiologist. This report was verified electronically.
[2017-08-13] MEDS ORDERED: ACETAMINOPHEN 325 MG TAB PO ONE (10:15)
[2017-08-13 10:39] LABS: POTASSIUM 3.7 MEQ/L (3.5-5.1)
[2017-08-13 10:41] LABS: AUTOMATED NEUTROPHIL # 3.8 TH/MM3 (1.8-7.7); BASOPHIL # 0.1 TH/MM3 (0-0.2); BASOPHIL % 1.1 % (0.0-2.0); EOSINOPHIL # 0.1 TH/MM3 (0-0.4); EOSINOPHIL % 1.7 % (0.0-4.0); HEMATOCRIT 33.4 % (35.0-46.0); HEMO FLAGS DIFF FINAL; LYMPH % 17.9 % (9.0-44.0); LYMPHOCYTE # 0.9 TH/MM3 (1.0-4.8); MEAN CELL VOLUME 85.8 FL (80.0-100.0); MEAN CORPUSCULAR HEMOGLOBIN 28.1 PG (27.0-34.0); MEAN CORPUSCULAR HGB CONC 32.7 % (32.0-36.0); NEUT % 74.3 % (16.0-70.0); PLATELET COUNT 136 TH/MM3 (150-450); RED BLOOD COUNT 3.89 MIL/MM3 (4.00-5.30); RED CELL DISTRIBUTION WIDTH 16.9 % (11.6-17.2); WHITE BLOOD COUNT 5.1 TH/MM3 (4.0-11.0)
[2017-08-13] MEDS ORDERED: RESP: ALBUTEROL 2.5 MG/3 ML NEB (SCH) NEB ONE (10:45)
[2017-08-13 10:49] LABS: INTERNATIONAL NORMALIZED RATIO 1.1 RATIO; PROTHROMBIN TIME - PATIENT 11.9 SEC (9.8-11.6)
[2017-08-13 10:51] LABS: BICARBONATE 25.9 MEQ/L (21.0-32.0)
[2017-08-13 11:30] LABS: MAGNESIUM 1.8 MG/DL (1.5-2.5)
[2017-08-13] MEDS ORDERED: NALOXONE HCL 0.4 MG/ML AMP IV PUSH PRN ×2 (14:45→15:30)
[2017-08-13] MEDS ORDERED: SODIUM CHLORIDE 0.9% FLUSH 10 ML FLUSH IV FLUSH PRN (14:45)
[2017-08-13] MEDS ORDERED: LACTULOSE SYRUP 20 GM/30 ML CUP PO PRN (14:45)
[2017-08-13] MEDS ORDERED: BISACODYL 10 MG SUPP RECTAL PRN (14:45)
[2017-08-13] MEDS ORDERED: ACETAMINOPHEN 325 MG TAB PO PRN (14:45)
[2017-08-13] MEDS ORDERED: SENNOSIDES 8.6 MG TAB PO PRN (14:45)
[2017-08-13] MEDS ORDERED: DEXTROSE 50% IN WATER 50 ML SYRINGE IV PUSH PRN (15:30)
[2017-08-13] MEDS ORDERED: hydrALAZINE HCL 20 MG/ML VIAL IV PUSH PRN (15:30)
[2017-08-13] MEDS ORDERED: cloNIDine HCL 0.1 MG TAB PO PRN (15:30)
[2017-08-13] MEDS ORDERED: GLUCAGON 1 MG/ML VIAL OTHER PRN (15:30)
--- NOTE | 2017-08-13 15:32 | HHI.HP ---
HPI Service [facility] Primary Care Physician Lucio Andrade DO Admission Diagnosis chf exacerbation Diagnoses: Chief Complaint: Shortness of breath Travel History International Travel<30 Days: No Contact w/Intl Traveler <30 Da: No Traveled to Known Affected Are: No History of Present Illness This is a 27-year-old female with a history of cardiomyopathy EF of 15% status post AICD, chronic kidney disease stage IV to 5, anxiety, hyperlipidemia, underlying diabetes, hypertension and neuropathy. She presents to the emergency room because of shortness of breath. This is a third visit in the past 10 days. She reports of worsening shortness of breath even at rest, PND and sleeps on a recliner. She also complains of lateral lower extremity swelling when she is on her feet. She also has a productive cough of yellow phlegm and wheezing but no fever, chills and chest pain. She has a 3 pack year smoking history quit years ago. She states she has been compliant with her medical therapy which includes Bumex and Coreg. Her delivery analyst recommended observation in [facility] and to continue Coreg. To consider milrinone drip. At this time patient pain medicine because of discomfort from swelling. Aware I'm not giving her any narcotics. All other systems reviewed negative Review of Systems Except as stated in HPI: all other systems reviewed are Neg Past Family Social History Past Medical History As previously mentioned Past Surgical History As previously mentioned. Tubal ligation, cholecystectomy, section Reported Medications Coreg (Carvedilol) 12.5 Mg Tab 25 Mg PO Q12HR Reported Bumetanide 2 Mg Tab 4 Mg PO BID Allergies: Coded Allergies: niacin (Verified Allergy, Intermediate, 08/13/17) PT STATES SHE FEELS SHAKY AND SWEATY ketorolac (Unverified Adverse Reaction, Mild, SHAKING, 08/13/17) Family History Coronary artery disease Social History Does not drink. Quit Tobacco use Physical Exam Vital Signs Vital Signs Date Time Temp Pulse Resp B/P (MAP) Pulse Ox O2 Delivery O2 Flow Rate FiO2 08/13/17 09:53 81 18 98 Room Air 08/13/17 09:52 77 18 133/83 (100) 98 Room Air 08/13/17 09:48 99 Room Air 08/13/17 09:01 98.8 89 20 138/91 (107) 97 Physical Exam GENERAL: This is a well-nourished, well-developed patient, in no apparent distress. On room air SKIN: No rashes, ecchymoses or lesions. Cool and dry. HEAD: Atraumatic. Normocephalic. No temporal or scalp tenderness. EYES: Pupils equal round and reactive. Extraocular motions intact. No scleral icterus. No injection or drainage. ENT: Nose without bleeding, purulent drainage or septal hematoma. Throat without erythema, tonsillar hypertrophy or exudate. Uvula midline. Airway patent. NECK: Trachea midline. No JVD or lymphadenopathy. Supple, nontender, no meningeal signs. CARDIOVASCULAR: Regular rate and rhythm without murmurs, gallops, or rubs. RESPIRATORY: Breath sounds equal bilaterally. Mild expiratory wheezes GASTROINTESTINAL: Abdomen soft, non-tender, nondistended. No guarding. MUSCULOSKELETAL: Extremities without clubbing, cyanosis but with trace bilateral lower lower extremity pitting edema. No joint tenderness, effusion, or edema noted. No calf tenderness. Negative Homans sign bilaterally. NEUROLOGICAL: Awake and alert. Cranial nerves II through XII intact. Motor and sensory grossly within normal limits. Five out of 5 muscle strength in all muscle groups. Normal speech. Laboratory Laboratory Tests Test 08/13/17 09:50 White Blood Count 5.1 Red Blood Count 3.89 Hemoglobin 10.9 Hematocrit 33.4 Mean Corpuscular Volume 85.8 Mean Corpuscular Hemoglobin 28.1 Mean Corpuscular Hemoglobin Concent 32.7 Red Cell Distribution Width 16.9 Platelet Count 136 Mean Platelet Volume 10.6 Neutrophils (%) (Auto) 74.3 Lymphocytes (%) (Auto) 17.9 Monocytes (%) (Auto) 5.0 Eosinophils (%) (Auto) 1.7 Basophils (%) (Auto) 1.1 Neutrophils # (Auto) 3.8 Lymphocytes # (Auto) 0.9 Monocytes # (Auto) 0.3 Eosinophils # (Auto) 0.1 Basophils # (Auto) 0.1 CBC Comment DIFF FINAL Differential Comment Prothrombin Time 11.9 Prothromb Time International Ratio 1.1 Activated Partial Thromboplast Time 24.0 Blood Urea Nitrogen 42 Creatinine 4.01 Random Glucose 107 Calcium Level 8.4 Magnesium Level 1.8 Sodium Level 142 Potassium Level 3.7 Chloride Level 108 Carbon Dioxide Level 25.9 Anion Gap 8 Estimat Glomerular Filtration Rate 13 Total Creatine Kinase 37 Troponin I 0.03 B-Type Natriuretic Peptide 3368 Result Diagram: 08/13/1750 08/13/17949 Imaging Last Impressions Chest X-Ray 08/13/17921 Signed Impressions: Service Date/Time: Sunday, August 13, 2017 09:41 - CONCLUSION: The lungs are clear. MD Percy Balbuena VTE Risk Assessment Caprini VTE Risk Assessment: Mod/High Risk (score >= 2) Caprini Risk Assessment Model Point Value = 1 Point Value = 2 Point Value = 3 Point Value = 5 Age 41-60 Minor surgery BMI > 25 kg/m2 Swollen legs Varicose veins or History of unexplained or recurrent spontaneous Oral contraceptives or hormone replacement Sepsis (< 1 month) Serious lung disease, including pneumonia (< 1 month) Abnormal pulmonary function Acute myocardial infarction Congestive heart failure (< 1 month) History of inflammatory bowel disease Medical patient at bed rest Age 61-74 Arthroscopic surgery Major open surgery (> 45 min) Laparoscopic surgery (> 45 min) Malignancy Confined to bed (> 72 hours) Immobilizing plaster cast Central venous access Age >= 75 History of VTE Family history of VTE Factor V Leiden Prothrombin [id number] Lupus anticoagulant Anticardiolipin antibodies Elevated serum homocysteine Heparin-induced thrombocytopenia Other congenital or acquired thrombophilia Stroke (< 1 month) Elective arthroplasty Hip, pelvis, or leg fracture Acute spinal cord injury (< 1 month) Prophylaxis Regimen Total Risk Factor Score Risk Level Prophylaxis Regimen 0-1 Low Early ambulation 2 Moderate Order ONE of the following: *Sequential Compression Device (SCD) *Heparin 5000 units SQ BID 3-4 Higher Order ONE of the following medications: *Heparin 5000 units SQ TID *Enoxaparin/Lovenox 40 mg SQ daily (WT < 150 kg, CrCl > 30 mL/min) *Enoxaparin/Lovenox 30 mg SQ daily (WT < 150 kg, CrCl > 10-29 mL/min) *Enoxaparin/Lovenox 30 mg SQ BID (WT < 150 kg, CrCl > 30 mL/min) AND/OR *Sequential Compression Device (SCD) 5 or more Highest Order ONE of the following medications: *Heparin 5000 units SQ TID (Preferred with Epidurals) *Enoxaparin/Lovenox 40 mg SQ daily (WT < 150 kg, CrCl > 30 mL/min) *Enoxaparin/Lovenox 30 mg SQ daily (WT < 150 kg, CrCl > 10-29 mL/min) *Enoxaparin/Lovenox 30 mg SQ BID (WT < 150 kg, CrCl > 30 mL/min) AND *Sequential Compression Device (SCD) Assessment and Plan Problem List: (1) Acute on chronic systolic (congestive) heart failure ICD Code: I50.23 - Acute on chronic systolic (congestive) heart failure Status: Acute (2) Stage 4 chronic kidney disease ICD Code: N18.4 - Chronic kidney disease, stage 4 (severe) Status: Chronic Assessment and Plan This is a 27-year-old female with a history of cardiomyopathy EF of 15% status post AICD, chronic kidney disease stage IV to 5, anxiety, hyperlipidemia, underlying diabetes, hypertension and neuropathy. She presents to the emergency room because of shortness of breath. This is a third visit in the past 10 days. She reports of worsening shortness of breath even at rest, PND and sleeps on a recliner. She also complains of lateral lower extremity swelling when she is on her feet. Acute on chronic systolic heart failure exacerbation with history of cardiomyopathy status post AICD. Chest x-ray image interpreted by me with no acute cardiopulmonary disease. EKG with sinus rhythm with LVH tracing interpreted by me. Patient will be placed under observation status in [facility] per cardiology's recommendations. Continue Coreg and diuresis with IV Lasix. To consider milrinone. Monitor on telemetry. We'll also start as needed albuterol nebulizations Chronic kidney disease stage IV-V. nonoliguric. Avoid nephrotoxins. Nephrology has been consulted Borderline diabetes. Monitor fingersticks with sliding scale coverage Hypertension. Continue Coreg and IV Lasix. As needed hydralazine and clonidine. Monitor Neuropathy. Tramadol as needed. DVT prophylaxis with SCD and early ambulation Discussed Condition With Patient and ER staff Micha Jorge MD Aug 13, 2017 15:32
--- NOTE | 2017-08-13 16:06 | EKG ---
Date Performed: 08/13/2017 Time Performed: 09:46:29 PTAGE: 27 years EKG: Sinus rhythm POSSIBLE LEFT ATRIAL ENLARGEMENT LEFT VENTRICULAR HYPERTROPHY AND ST-T CHANGE ABNORMAL ECG Compared to prior tracing no significant change PREVIOUS TRACING : 08/11/2017 01.09 DOCTOR: Malik Gardner Interpretating Date/Time 08/13/2017 16:04:01
[2017-08-13] MEDS: RESP: ALBUTEROL 2.5 MG/3 ML NEB (PRN) NEB ×2 (16:11→20:03)
[2017-08-13] MEDS: traMADol HCL 50 MG TAB PO PRN ×2 (16:30→20:58)
[2017-08-13] MEDS: INSULIN ASPART SUPPLEMENTAL SCALE SQ SCH ×2 (17:00→20:57)
[2017-08-13] MEDS: FUROSEMIDE 40 MG/4 ML VIAL IV PUSH SCH (18:49)
[2017-08-13] MEDS: ONDANSETRON HCL 4 MG/2 ML VIAL IVP PRN (18:50)
[2017-08-13] MEDS: CARVEDILOL 12.5 MG TAB PO SCH (20:56)
[2017-08-13] MEDS: DOCUSATE SODIUM 50 MG/SENNA 8.6 MG TAB PO SCH (20:56)
[2017-08-13] MEDS: SODIUM CHLORIDE 0.9% FLUSH 10 ML FLUSH IV FLUSH SCH (20:56)
[2017-08-14] VITALS (18 sets, daily range): BP systolic 117–140; BP diastolic 75–95; PULSE 70–97; RESP 18–24; TEMP 97.3–98.3; O2SAT 94–99
[2017-08-14] MEDS: RESP: ALBUTEROL 2.5 MG/3 ML NEB (PRN) NEB ×4 (00:53→19:52)
[2017-08-14] MEDS: ONDANSETRON HCL 4 MG/2 ML VIAL IVP PRN ×2 (02:37→20:49)
[2017-08-14 07:27] LABS: BICARBONATE 26.5 MEQ/L (21.0-32.0); POTASSIUM 3.7 MEQ/L (3.5-5.1)
[2017-08-14] MEDS: INSULIN ASPART SUPPLEMENTAL SCALE SQ SCH ×4 (08:00→20:59)
[2017-08-14] MEDS ORDERED: METOCLOPRAMIDE HCL 10 MG/2 ML VIAL IV PUSH PRN (08:30)
[2017-08-14] MEDS ORDERED: oxyCODONE/ACETAMINOPHEN 5 MG/325 MG TAB PO PRN ×2 (08:30)
[2017-08-14] MEDS ORDERED: LORazepam 2 MG/ML VIAL IV PUSH PRN (08:30)
[2017-08-14] MEDS ORDERED: SODIUM CHLOR 0.9% 250 ML INJ 250 ML IV PRN (08:30)
[2017-08-14] MEDS ORDERED: ONDANSETRON HCL 4 MG/2 ML VIAL IV PUSH PRN (08:30)
[2017-08-14] MEDS ORDERED: BACITRACIN OINT 0.9 GM PKT TOP ONE (08:30)
[2017-08-14] MEDS ORDERED: ATROPINE SULFATE 1 MG/ML VIAL IV PUSH PRN (08:30)
[2017-08-14] MEDS ORDERED: LIDOCAINE HCL 1% 50 ML VIAL INFIL PRN (08:30)
[2017-08-14] MEDS: DOCUSATE SODIUM 50 MG/SENNA 8.6 MG TAB PO SCH ×2 (09:00→20:46)
[2017-08-14] MEDS: SODIUM CHLORIDE 0.9% FLUSH 10 ML FLUSH IV FLUSH SCH ×2 (09:00→21:00)
[2017-08-14] MEDS: FUROSEMIDE 40 MG/4 ML VIAL IV PUSH SCH ×2 (10:15→18:37)
[2017-08-14] MEDS: CARVEDILOL 12.5 MG TAB PO SCH ×2 (10:15→21:45)
--- NOTE | 2017-08-14 10:24 | HHI.PR ---
Subjective Remarks Follow-up shortness of breath. Improving dyspnea still on room air. Patient has been having episodes of wheezing discussed with RN Objective Vitals Vital Signs Date Time Temp Pulse Resp B/P (MAP) Pulse Ox O2 Delivery O2 Flow Rate FiO2 08/14/17 09:39 08/14/17 08:16 99 21 08/14/17 07:00 84 19 140/84 (102) 99 Room Air 08/14/17 03:13 75 18 138/86 (103) 98 Room Air 08/13/17 22:41 92 18 136/90 (105) 99 Room Air 08/13/17 20:04 98 08/13/17 19:29 85 18 149/95 (113) 98 Room Air 08/13/17 18:32 18 08/13/17 16:30 90 18 141/93 (109) 99 Room Air I/O 08/13/17 08/13/17 08/13/17 08/14/17 08/14/17 08/14/17 07:00 15:00 23:00 07:00 15:00 23:00 Output Total 610 ml 300 ml Balance -610 ml -300 ml Output Urine Total 610 ml 300 ml # Voids 3 3 Result Diagram: 08/13/17 0950 08/14/17 06 Imaging Last Impressions Chest X-Ray 08/13/17921 Signed Impressions: Service Date/Time: Sunday, August 13, 2017 09:41 - CONCLUSION: The lungs are clear. Uli Lord MD Objective Remarks GENERAL: This is a well-nourished, well-developed patient, in no apparent distress. On room air Skin: No rashes or lesions NECK: stridor CARDIOVASCULAR: Regular rate and rhythm without murmurs, gallops, or rubs. RESPIRATORY: Breath sounds equal bilaterally. Mild expiratory wheezes. No retractions GASTROINTESTINAL: Abdomen soft, non-tender, nondistended. No guarding. MUSCULOSKELETAL: Extremities without clubbing, cyanosis but with trace bilateral lower lower extremity pitting edema. No joint tenderness, effusion, or edema noted. No calf tenderness. Negative Homans sign bilaterally. NEUROLOGICAL: Awake and alert. Cranial nerves II through XII intact. Motor and sensory grossly within normal limits. Five out of 5 muscle strength in all muscle groups. Normal speech. Procedures none A/P Problem List: (1) Acute on chronic systolic (congestive) heart failure ICD Code: I50.23 - Acute on chronic systolic (congestive) heart failure Status: Acute (2) Stage 4 chronic kidney disease ICD Code: N18.4 - Chronic kidney disease, stage 4 (severe) Status: Chronic Assessment and Plan This is a 27-year-old female with a history of cardiomyopathy EF of 15% status post AICD, chronic kidney disease stage IV to 5, anxiety, hyperlipidemia, underlying diabetes, hypertension and neuropathy. She presents to the emergency room because of shortness of breath. This is a third visit in the past 10 days. She reports of worsening shortness of breath, PND and sleeps on a recliner. She also complains of lateral lower extremity swelling when she is on her feet. Acute on chronic systolic heart failure exacerbation with history of cardiomyopathy status post AICD. Increasing BNP. Chest x-ray image interpreted by me with no acute cardiopulmonary disease. EKG with sinus rhythm with LVH tracing interpreted by me. Improving. Continue Coreg and diuresis with IV Lasix. To consider milrinone. Unable to start NORMAN inhibitor secondary to renal dysfunction. Monitor on telemetry. We'll continue as needed albuterol nebulizations. We will hold off with racemic epi because of increased risk of arrhythmias Chronic kidney disease stage IV-V. nonoliguric. Creatinine slightly improved today. Avoid nephrotoxins. Nephrology has been consulted Borderline diabetes. Monitor fingersticks with sliding scale coverage Hypertension. Continue Coreg and IV Lasix. As needed hydralazine and clonidine. Monitor Neuropathy. Tramadol as needed. DVT prophylaxis with SCD and early ambulation Discharge Planning Discharge when cleared by cardiology and nephrology Micha Jorge MD Aug 14, 2017 10:24
[2017-08-14] MEDS: traMADol HCL 50 MG TAB PO PRN ×2 (18:55→23:12)
[2017-08-14] MEDS: MILRINONE INJ 20 MG in SODIUM CHLORIDE 0.9% INJ 80 ML IV SCH (21:39)
[2017-08-14 23:38] LABS: BACTERIA, URINE RARE /hpf; BLOOD, URINE TRACE (NEG); COMMENT (UR) CULT NOT INDICATED; CULTURE IF INDICATED CULT NOT INDICATED; GLUCOSE,URINE TRACE mg/dL (NEG); KETONE, URINE NEG (NEG); NITRITE,URINE NEG (NEG); PH, URINE 6.5 (5.0-8.5); URINE COLOR LIGHT-YELLOW (YELLW/STRAW)
--- NOTE | 2017-08-14 23:54 | MB ---
cc: JEROMY GAO MD DATE OF CONSULTATION 08/14/17 REASON FOR CONSULTATION Chronic kidney disease with some acute worsening for evaluation. HISTORY OF PRESENT ILLNESS This is a very pleasant 27-year-old female with past medical history of dilated cardiomyopathy with low ejection fraction, history of chronic kidney disease, hyperlipidemia, anxiety, diabetes mellitus, hypertension, peripheral neuropathy, came to the hospital with complaint of worsening shortness of breath and edema of the legs and abdominal wall. I was called to see the patient because of elevated BUN and creatinine. The patient has known history of chronic kidney disease. She was seen by me when she was admitted in February of this year and at that time her creatinine was 2.6-2.7 and now she is coming with a creatinine of 4.0. Patient has known history of being noncompliant and she is not following with any endless bed drum sander or any fmd teacher and she was incarcerated for almost 3 months but according to the patient she was taking her medication at that time, although the dose of the Bumex she was taking was 2 milligrams twice a day instead of 4 milligrams twice a day. She got out of the incarceration __ about 3 weeks ago and stated she has been taking the higher dose but she noticed that her swelling is not improving and she is getting more and more swelling and shortness of breath. The patient also not following regularly with her fmd teacher and she is getting most of her medications from her primary physician. The patient denied any chest pain. There is mild cough. There is no history of fever. No dysuria or hematuria. Since she came in here she noticed that the swelling has been improving but it was already improving from last few days before she came in here, especially in the legs but in the abdominal area she still has more swelling. PAST MEDICAL HISTORY Hypertension, diabetes mellitus, cardiomyopathy, neuropathy, chronic kidney disease. PAST SURGICAL HISTORY Tubal ligation, cholecystectomy, section. REVIEW OF SYSTEMS The patient has generalized weakness, feeling tired. There is no history of fever. No sore throat. She has mild cough. There is no sputum. Has worsening shortness breath especially on exertion and lying flat. Has increased swelling in her abdominal wall and also in the legs which has been improving now. Denies any dysuria, hematuria. Not taking any nonsteroidal anti-inflammatory drugs. SOCIAL HISTORY The patient is single. She stopped smoking. There is no history of alcoholism. FAMILY HISTORY Positive for ischemic heart disease. ALLERGIES SHE IS ALLERGIC TO KETOROLAC, NIACIN. MEDICATIONS Currently she is on the following medications: 1. She is started on milrinone drip by the fmd teacher. 2. [place]-Colace 1 tablet b.i.d. 3. Furosemide 40 milligrams IV b.i.d. 4. Carvedilol 25 milligrams q. 12 hours. 5. Insulin aspart sliding scale. 6. Zofran as needed. 7. Tylenol as needed. 8. Lactulose and Senokot as needed. 9. Narcan as needed. PHYSICAL EXAMINATION GENERAL: On examination the patient is awake, alert. She is not in acute distress. VITAL SIGNS: Her last blood pressure is 120/83, temperature 97.7, oxygen saturation is 94% on room air. HEENT: Pupils are mid constricted. Nonicteric sclera, conjunctiva pale. NECK: Supple. JVD is not elevated. LUNGS: The patient has bilateral decreased air entry with few basilar rales. HEART: S1-S2. Regular rhythm. ABDOMEN: Abdomen is obese, soft, lax. There is no tenderness. She has some subcutaneous edema in the abdominal wall. EXTREMITIES: She has 1+ edema in the lower legs. INVESTIGATION WBC count is 5.1, hemoglobin 10.9, platelet count 136, neutrophils 34.3%, sodium 139, potassium 3.7, chloride 106, bicarb 26.5, BUN 45, creatinine 3.9, calcium 8.4, INR is 1.1. Urinalysis showing urine protein of 100, this was in December and a 24-hour urine protein was 5.5 grams, this was in February. Her immunology was done in November and showed the HAMLET was negative. ANCA was negative. C4 was normal and ___ and C3 was slightly low 81. IMAGING STUDIES The patient has chest x-ray done which shows the lung florence clear. Ultrasound of the kidney was done in February of this year which shows that both kidneys are normal in size and echogenic compatible with the medical renal disease. ASSESSMENT/PLAN 1. Dilated cardiomyopathy with low ejection fraction. 2. Chronic kidney disease, some acute worsening. 3. Fluid overload status. 4. Hypertension. 5. Diabetes mellitus. The patient was seen by the fmd teacher. She has very low ejection fraction of 10-15% and now started on milrinone to improve some cardiac output and possibly renal perfusion and diuresis. She is on Lasix twice a day. The patient has underlying chronic kidney disease and now it got more worse and she has significant proteinuria. Her ___ serology was negative. Will repeat the urine and if she still has proteinuria then possibly will consider biopsy of the kidney. Continue diuresis. Follow the urine output and the BUN and creatinine. Avoid any nephrotoxins. Thank you for the consultation. I will follow the patient while she is in the hospital. Jeromy Gao MD AQJ/CINDY /7:26 PM /11:28 PM
[2017-08-15] VITALS (28 sets, daily range): BP systolic 120–133; BP diastolic 71–83; PULSE 71–92; RESP 16–18; TEMP 97.3–98.2; O2SAT 96–100
[2017-08-15] MEDS: RESP: ALBUTEROL 2.5 MG/3 ML NEB (PRN) NEB ×4 (01:30→20:44)
[2017-08-15] MEDS: ACETAMINOPHEN 325 MG TAB PO PRN ×2 (05:16→11:47)
[2017-08-15 06:19] LABS: POTASSIUM 3.8 MEQ/L (3.5-5.1)
[2017-08-15] MEDS: INSULIN ASPART SUPPLEMENTAL SCALE SQ SCH ×4 (08:13→21:00)
[2017-08-15] MEDS: CARVEDILOL 12.5 MG TAB PO SCH ×2 (08:57→20:25)
[2017-08-15] MEDS: DOCUSATE SODIUM 50 MG/SENNA 8.6 MG TAB PO SCH ×2 (08:57→20:26)
[2017-08-15] MEDS: FUROSEMIDE 40 MG/4 ML VIAL IV PUSH SCH ×2 (08:57→17:55)
[2017-08-15] MEDS: SODIUM CHLORIDE 0.9% FLUSH 10 ML FLUSH IV FLUSH SCH ×2 (08:57→20:26)
[2017-08-15] MEDS: traMADol HCL 50 MG TAB PO PRN (08:58)
[2017-08-15] MEDS ORDERED: INFLUENZA VIRUS VACCINE (QUADRIVALENT) 0.5 ML SYR IM ONE (10:00)
[2017-08-15] MEDS ORDERED: PNEUMOCOCCAL POLYVALENT INJ 25 MCG/0.5 ML SYR IM ONE (10:00)
--- NOTE | 2017-08-15 10:19 | HHI.PR ---
Subjective Remarks Follow-up heart failure and chronic kidney disease. Improving shortness of breath on milrinone. She is voiding well. Requesting another pain medicine but does not want narcotics. She is allergic to NSAIDs. Discussed with RN Objective Vitals Vital Signs Date Time Temp Pulse Resp B/P (MAP) Pulse Ox O2 Delivery O2 Flow Rate FiO2 08/15/17 08:25 98 21 08/15/17 06:00 75 08/15/17 05:00 80 08/15/17 04:00 75 08/15/17 03:00 97.6 71 18 133/77 (95) 97 08/15/17 03:00 74 08/15/17 02:00 75 08/15/17 01:34 96 21 08/15/17 01:00 77 08/15/17 00:00 75 08/14/17 23:00 97.7 97 22 118/75 (89) 97 08/14/17 23:00 82 08/14/17 22:00 84 08/14/17 21:53 79 131/79 08/14/17 21:39 79 121/80 08/14/17 21:00 84 08/14/17 20:00 98.3 88 20 139/95 (110) 99 08/14/17 20:00 84 08/14/17 19:00 89 08/14/17 17:37 94 21 08/14/17 16:01 76 08/14/17 15:45 97.7 77 22 120/83 (95) 94 08/14/17 15:00 73 08/14/17 14:00 72 08/14/17 13:00 70 08/14/17 12:01 84 08/14/17 11:45 97.3 77 24 117/85 (96) 98 08/14/17 11:00 83 I/O 08/14/17 08/14/17 08/14/17 08/15/17 08/15/17 08/15/17 07:00 15:00 23:00 07:00 15:00 23:00 Intake Total 720 ml 515 ml Output Total 300 ml 350 ml 750 ml Balance -300 ml 370 ml -235 ml Intake Oral 720 ml 480 ml IV Total 35 ml Output Urine Total 300 ml 350 ml 750 ml # Voids 3 2 # Bowel Movements 0 0 Result Diagram: 08/13/17 0950 08/15/17 0530 Imaging Last Impressions Chest X-Ray 08/13/17 0922 Signed Impressions: Service Date/Time: Sunday, August 13, 2017 09:41 - CONCLUSION: The lungs are clear. Uli Lord MD Objective Remarks GENERAL: This is a well-nourished, well-developed patient, in no apparent distress. On room air Skin: No rashes or lesions NECK: No stridor CARDIOVASCULAR: Regular rate and rhythm without murmurs, gallops, or rubs. RESPIRATORY: Breath sounds equal bilaterally. Mild expiratory wheezes. No retractions GASTROINTESTINAL: Abdomen soft, non-tender, nondistended. No guarding. MUSCULOSKELETAL: Extremities without clubbing, cyanosis but with trace bilateral lower lower extremity pitting edema. No joint tenderness, effusion, or edema noted. No calf tenderness. Negative Homans sign bilaterally. NEUROLOGICAL: Awake and alert. Cranial nerves II through XII intact. Motor and sensory grossly within normal limits. Five out of 5 muscle strength in all muscle groups. Normal speech. No significant change in PE Procedures none A/P Problem List: (1) Acute on chronic systolic (congestive) heart failure ICD Code: I50.23 - Acute on chronic systolic (congestive) heart failure Status: Acute (2) Stage 4 chronic kidney disease ICD Code: N18.4 - Chronic kidney disease, stage 4 (severe) Status: Chronic Assessment and Plan This is a 27-year-old female with a history of cardiomyopathy EF of 15% status post AICD, chronic kidney disease stage IV to 5, anxiety, hyperlipidemia, underlying diabetes, hypertension and neuropathy. She presents to the emergency room because of shortness of breath. This is a third visit in the past 10 days. She reports of worsening shortness of breath, PND and sleeps on a recliner. She also complains of lateral lower extremity swelling when she is on her feet. Acute on chronic systolic heart failure exacerbation with history of cardiomyopathy status post AICD. Worsening BNP. Chest x-ray image interpreted by me with no acute cardiopulmonary disease. EKG with sinus rhythm with LVH tracing interpreted by me. Improving. Continue milrinone drip, Coreg and diuresis with IV Lasix. Unable to start NORMAN inhibitor secondary to renal dysfunction. Monitor on telemetry. We'll continue as needed albuterol nebulizations. We will hold off with racemic epi because of increased risk of arrhythmias Chronic kidney disease stage IV-V. Nonoliguric. Creatinine slightly worse today. Avoid nephrotoxins. Nephrology has discuss dialysis. Patient had biopsy will obtain report Borderline diabetes. Fingerstick stable we'll discontinue sliding scale Hypertension. Continue Coreg and IV Lasix. As needed hydralazine and clonidine. Monitor Neuropathy. Tramadol as needed. Consider Lyrica or Neurontin DVT prophylaxis with SCD and early ambulation Discharge Planning Discharge when cleared by cardiology and nephrology Micha Jorge MD Aug 15, 2017 10:19
--- NOTE | 2017-08-15 10:58 | HHI.NPPN ---
Subjective History of Present Illness 27-year-old female with past medical history of dilated cardiomyopathy with low ejection fraction, history of chronic kidney disease, hyperlipidemia, anxiety, diabetes mellitus, hypertension, peripheral neuropathy, came to the hospital with complaint of worsening shortness of breath and edema of the legs and abdominal wall. I was called to see the patient because of elevated BUN and creatinine. The patient has known history of chronic kidney disease. She was seen by me when she was admitted in February of this year and at that time her creatinine was 2.6-2.7 and now she came with a creatinine of 4.0. Additional Remarks Patient is alert, sitting on chair, no SOB, swelling improving. Review of Systems General Constitutional: Fatigue Respiratory Lungs: SOB, Cough Cardiovascular Cardiac: Edema, CONNORS Objective Data Data Vital Signs Date Time Temp Pulse Resp B/P (MAP) Pulse Ox O2 Delivery O2 Flow Rate FiO2 08/15/17 10:00 87 08/15/17 09:00 80 08/15/17 08:25 98 21 08/15/17 08:00 76 08/15/17 08:00 97.7 74 16 120/71 (87) 97 08/15/17 07:09 72 08/15/17 06:00 75 08/15/17 05:00 80 08/15/17 04:00 75 08/15/17 03:00 97.6 71 18 133/77 (95) 97 08/15/17 03:00 74 08/15/17 02:00 75 08/15/17 01:34 96 21 08/15/17 01:00 77 08/15/17 00:00 75 08/14/17 23:00 97.7 97 22 118/75 (89) 97 08/14/17 23:00 82 08/14/17 22:00 84 08/14/17 21:53 79 131/79 08/14/17 21:39 79 121/80 08/14/17 21:00 84 08/14/17 20:00 98.3 88 20 139/95 (110) 99 08/14/17 20:00 84 08/14/17 19:00 89 08/14/17 17:37 94 21 08/14/17 16:01 76 08/14/17 15:45 97.7 77 22 120/83 (95) 94 08/14/17 15:00 73 08/14/17 14:00 72 08/14/17 13:00 70 08/14/17 12:01 84 08/14/17 11:45 97.3 77 24 117/85 (96) 98 08/14/17 11:00 83 -: 08/13/17 0950 08/15/17 0530 Physical Exam General Appearance: No Acute Distress, Comfortable Eyes Eye Exam: Pupils Equal Throat Throat Exam: Oral Mucosa [place] & Moist Neck Neck Exam: Neck Supple Pulmonary Resp Exam: Breath Sounds Equal, No Distress, Decreased Bases, Diminished Breath Sounds Cardiology CV Exam: Regular, Normal Sinus Rhythm Gastrointestinal/Abdomen GI Exam: Soft, Non-Tender Extremeties Extremities Exam: Moderate Edema Neurologic Neuro Exam: Alert, Awake, Oriented Assessment/Plan Assessment Summary: Fluid/Volume Overload, CHF, Hypertension, CKD Stage IV Problem List: (1) DM (diabetes mellitus) ICD Codes: E11.9 - Type 2 diabetes mellitus without complications Status: Acute (2) Anxiety ICD Codes: F41.9 - Anxiety disorder, unspecified Status: Acute (3) Non-ischemic cardiomyopathy ICD Codes: I42.8 - Other cardiomyopathies Status: Chronic (4) Systolic CHF, chronic ICD Codes: I50.22 - Chronic systolic (congestive) heart failure Status: Acute (5) Anasarca ICD Codes: R60.1 - Generalized edema Status: Acute (6) Stage 4 chronic kidney disease ICD Codes: N18.4 - Chronic kidney disease, stage 4 (severe) Status: Chronic (7) TIMOTHY (acute kidney injury) ICD Codes: N17.9 - Acute kidney failure, unspecified Status: Acute Plan Patient has stable Creatinine. Possibly has advance renal disease with some Acute worsening. BP is stable. K is normal. Continue Lasix 40 mg BID. 24 Hr. urine protein is pending. Had negative serology in past. Was on HD for almost 2 months at [facility] 2 years ago. I discussed with her about Dialysis, she will be better candidate for PD. She had Kidney Biopsy there, will try to get the report. Jeromy Allen MD Aug 15, 2017 10:58
--- NOTE | 2017-08-15 17:18 | HHI.PR ---
Subjective Remarks Feeling better Objective Vital Signs Date Time Temp Pulse Resp B/P (MAP) Pulse Ox O2 Delivery O2 Flow Rate FiO2 08/15/17 15:00 97.3 77 16 129/73 (91) 100 08/15/17 14:00 76 08/15/17 13:10 74 08/15/17 12:11 71 08/15/17 12:00 98.0 82 16 123/71 (88) 98 08/15/17 11:04 81 08/15/17 10:00 87 08/15/17 09:00 80 08/15/17 08:25 98 21 08/15/17 08:00 76 08/15/17 08:00 97.7 74 16 120/71 (87) 97 08/15/17 07:09 72 08/15/17 06:00 75 08/15/17 05:00 80 08/15/17 04:00 75 08/15/17 03:00 97.6 71 18 133/77 (95) 97 08/15/17 03:00 74 08/15/17 02:00 75 08/15/17 01:34 96 21 08/15/17 01:00 77 08/15/17 00:00 75 08/14/17 23:00 97.7 97 22 118/75 (89) 97 08/14/17 23:00 82 08/14/17 22:00 84 08/14/17 21:53 79 131/79 08/14/17 21:39 79 121/80 08/14/17 21:00 84 08/14/17 20:00 98.3 88 20 139/95 (110) 99 08/14/17 20:00 84 08/14/17 19:00 89 08/14/17 17:37 94 21 I/O 08/14/17 08/14/17 08/14/17 08/15/17 08/15/17 08/15/17 07:00 15:00 23:00 07:00 15:00 23:00 Intake Total 720 ml 515 ml Output Total 300 ml 350 ml 750 ml Balance -300 ml 370 ml -235 ml Intake Oral 720 ml 480 ml IV Total 35 ml Output Urine Total 300 ml 350 ml 750 ml # Voids 3 2 # Bowel Movements 0 0 Result Diagram: 08/13/17 0950 08/15/17 0530 Imaging Alert, fully oriented Lungs: ventilated Heart: S1, S2 regular Abdomen: Obese, no mass Ext: no edema Last Impressions Chest X-Ray 08/13/17 09 Signed Impressions: Service Date/Time: Sunday, August 13, 2017 09:41 - CONCLUSION: The lungs are clear. Uli Lord MD Current Medications Medications (Trade) Dose Ordered Sig/Arnold Route Start Time Stop Time Status Last Admin (Coreg) 25 mg Q12HR PO 08/13/17 21:00 08/15/17 08:57 (NS Flush) 2 ml UNSCH PRN IV FLUSH 08/13/17 14:45 (NS Flush) 2 ml BID IV FLUSH 08/13/17 21:00 08/15/17 08:57 (Tylenol) 650 mg Q4H PRN PO 08/13/17 14:45 (Zofran Inj) 4 mg Q6H PRN IVP 08/13/17 14:45 08/14/17 20:49 (Tylenol) 650 mg Q6H PRN PO 08/13/17 14:45 08/15/17 11:47 ([place]-Colace) 1 tab BID PO 08/13/17 21:00 (Senokot) 17.2 mg Q12H PRN PO 08/13/17 14:45 (Dulcolax Supp) 10 mg DAILY PRN RECTAL 08/13/17 14:45 (Lactulose Liq) 30 ml DAILY PRN PO 08/13/17 14:45 (Lasix Inj) 40 mg BID@,18 IV PUSH 08/13/17 18:00 08/15/17 08:57 (Albuterol Neb) 2.5 mg Q2HR NEB PRN NEB 08/13/17 15:30 08/15/17 13:11 (Ultram) 50 mg Q4H PRN PO 08/13/17 15:30 08/15/17 08:58 (Ultram) 100 mg Q4H PRN PO 08/13/17 15:30 08/14/17 23:12 (Narcan Inj) 0.4 mg UNSCH PRN IV PUSH 08/13/17 15:30 (D50w (Syr) Inj) 50 ml UNSCH PRN IV PUSH 08/13/17 15:30 (Glucagon Inj) 1 mg UNSCH PRN OTHER 08/13/17 15:30 (NovoLOG SUPPLEMENTAL SCALE) 1 ACHS SLIDING SCALE SQ 08/13/17 17:00 (Apresoline Inj) 10 mg Q6H PRN IV PUSH 08/13/17 15:30 (Catapres) 0.1 mg Q6H PRN PO 08/13/17 15:30 Milrinone Lactate 20 mg/Sodium Chloride 100 ml @ 3.23 mls/hr Q24H IV 08/14/17 20:00 08/14/17 21:39 Assessment and Plan Problem List: (1) Systolic CHF, chronic ICD Codes: I50.22 - Chronic systolic (congestive) heart failure Status: Acute Plan: On milrinone. Will continue on infusion until tomorrow Condition significantly improve Able to talk and go to restroom Creat 4.14. Entrestro cannot be initiated yet (2) Dyspnea ICD Codes: R06.00 - Dyspnea, unspecified Status: Acute Plan: Significantly improve Leona Cardoso MD Aug 15, 2017 17:18
--- NOTE | 2017-08-15 19:41 | MB ---
cc: LONG GARCIA M.D. DATE OF CONSULTATION: 08/14/2017. REASON FOR CONSULTATION: Electrophysiology consultation for uncompensated heart failure. HISTORY OF PRESENT ILLNESS: Ms. Jones is a 27-year-old female with history of a cardiomyopathy with congestive heart failure class III, with poor compliance to medical management. Multiple ER visits. The patient did not show up for followup in my office for at least a year to a [id number]. She did not follow up either with her contract modeler. Apparently she claims she does not have a ride to come to the office visit but she was coming to the emergency room on multiple occasions in the past month. She was admitted due to heart failure. I discussed the case with the emergency room physician and the patient was admitted for further management. The chart was reviewed. The patient was evaluated. ALLERGIES: 1. NIACIN. 2. KETOROLAC. SOCIAL HISTORY: The patient currently denies smoking and drinking. The patient says she just quit smoking. FAMILY HISTORY: Noncontributory to her current medical condition. MEDICATIONS: 1. Coreg. 2. Lasix. 3. Tramadol. 4. Apresoline. 5. Lactulose. REVIEW OF SYSTEMS: Currently she refers shortness of breath on minimal activity but no chest pain and no chest discomfort. No fever. PHYSICAL EXAMINATION: GENERAL: Alert, fully oriented. The patient can barely go to the bathroom without shortness of breath. She cannot even complete a sentence. VITAL SIGNS: Blood pressure 120/83, pulse 77, respiratory rate is around 24. LUNGS: Ventilated. CARDIOVASCULAR: S1-S2 regular. No gallop. ABDOMEN: Abdomen obese, no mass. EXTREMITIES: With minimal edema. EKGS: There was no electrocardiogram. Telemetry indicates sinus rhythm. LABORATORY DATA: Hemoglobin is 10.9, white blood cells 5.1. Potassium 3.7, creatinine 3.94. BNP is 3368. INR 1.1. ASSESSMENT AND RECOMMENDATIONS: Ms. Jones has congestive heart failure class III. As mentioned before, she is poorly compliant to medical management. She was referred previously to transplant evaluation. I am not sure she even went for the appointment. She is supposed to have one coming at the end of the month. Her creatinine is high and this is why she is not on NORMAN or ARB. Entresto cannot be used either at this point. She is in severe heart failure and has had multiple hospitalizations. Her creatinine is 13. I am going to transfer the patient to CVICU where Milrinone will be initiated. I will cut the loading dose in half and I will use 0.125 micrograms/kg/minute. She will be monitored. Her medications will be re-evaluated. If her creatinine improves, then I will use Entresto. The case was discussed with Dr. Allen. Her prognosis is poor if the patient continues not being compliant with her current management. MD FRED Clements/CARMELA /5:10 PM /7:27 PM
[2017-08-15] MEDS: MILRINONE INJ 20 MG in SODIUM CHLORIDE 0.9% INJ 80 ML IV SCH (20:26)
[2017-08-16] VITALS (28 sets, daily range): BP systolic 111–135; BP diastolic 61–86; PULSE 76–96; RESP 16–18; TEMP 97.6–98.7; O2SAT 95–100
[2017-08-16] MEDS: traMADol HCL 50 MG TAB PO PRN ×2 (03:35→23:49)
[2017-08-16] MEDS: RESP: ALBUTEROL 2.5 MG/3 ML NEB (PRN) NEB ×4 (03:41→20:43)
[2017-08-16 05:54] LABS: BICARBONATE 26.4 MEQ/L (21.0-32.0); MAGNESIUM 2.1 MG/DL (1.5-2.5); POTASSIUM 3.7 MEQ/L (3.5-5.1)
[2017-08-16] MEDS: INSULIN ASPART SUPPLEMENTAL SCALE SQ SCH ×2 (07:43→12:03)
--- NOTE | 2017-08-16 08:36 | PD.CARD.PN ---
Subjective Subjective Remarks Feels better Objective Medications Current Medications Medications (Trade) Dose Ordered Sig/Arnold Route Start Time Stop Time Status Last Admin (Coreg) 25 mg Q12HR PO 08/13/17 21:00 08/15/17 20:25 (NS Flush) 2 ml UNSCH PRN IV FLUSH 08/13/17 14:45 (NS Flush) 2 ml BID IV FLUSH 08/13/17 21:00 08/15/17 08:57 (Tylenol) 650 mg Q4H PRN PO 08/13/17 14:45 (Zofran Inj) 4 mg Q6H PRN IVP 08/13/17 14:45 08/14/17 20:49 (Tylenol) 650 mg Q6H PRN PO 08/13/17 14:45 08/15/17 11:47 ([place]-Colace) 1 tab BID PO 08/13/17 21:00 (Senokot) 17.2 mg Q12H PRN PO 08/13/17 14:45 (Dulcolax Supp) 10 mg DAILY PRN RECTAL 08/13/17 14:45 (Lactulose Liq) 30 ml DAILY PRN PO 08/13/17 14:45 (Lasix Inj) 40 mg BID@09,18 IV PUSH 08/13/17 18:00 08/15/17 17:55 (Albuterol Neb) 2.5 mg Q2HR NEB PRN NEB 08/13/17 15:30 08/16/17 03:41 (Ultram) 50 mg Q4H PRN PO 08/13/17 15:30 08/15/17 08:58 (Ultram) 100 mg Q4H PRN PO 08/13/17 15:30 08/16/17 03:35 (Narcan Inj) 0.4 mg UNSCH PRN IV PUSH 08/13/17 15:30 (D50w (Syr) Inj) 50 ml UNSCH PRN IV PUSH 08/13/17 15:30 (Glucagon Inj) 1 mg UNSCH PRN OTHER 08/13/17 15:30 (NovoLOG SUPPLEMENTAL SCALE) 1 ACHS SLIDING SCALE SQ 08/13/17 17:00 (Apresoline Inj) 10 mg Q6H PRN IV PUSH 08/13/17 15:30 (Catapres) 0.1 mg Q6H PRN PO 08/13/17 15:30 Milrinone Lactate 20 mg/Sodium Chloride 100 ml @ 3.23 mls/hr Q24H IV 08/14/17 20:00 08/15/17 20:26 Vital Signs / I&O Vital Signs Date Time Temp Pulse Resp B/P (MAP) Pulse Ox O2 Delivery O2 Flow Rate FiO2 08/16/17 08:04 95 21 08/16/17 06:00 78 08/16/17 05:00 76 08/16/17 04:00 82 08/16/17 03:00 79 08/16/17 03:00 97.6 94 18 117/68 (84) 96 08/16/17 02:00 83 08/16/17 01:00 80 08/16/17 00:00 79 08/15/17 23:00 97.9 81 18 131/81 (98) 100 08/15/17 23:00 80 08/15/17 22:00 92 08/15/17 21:00 83 08/15/17 20:45 98 21 08/15/17 20:26 90 132/83 08/15/17 20:00 86 08/15/17 19:00 89 08/15/17 19:00 98.2 89 18 132/83 (99) 98 08/15/17 18:08 76 08/15/17 17:00 87 08/15/17 16:00 77 08/15/17 15:00 97.3 77 16 129/73 (91) 100 08/15/17 15:00 80 08/15/17 14:00 76 08/15/17 13:10 74 08/15/17 12:11 71 08/15/17 12:00 98.0 82 16 123/71 (88) 98 08/15/17 11:04 81 08/15/17 10:00 87 08/15/17 09:00 80 I/O 08/15/17 08/15/17 08/15/17 08/16/17 08/16/17 08/16/17 07:00 15:00 23:00 07:00 15:00 23:00 Intake Total 515 ml 300 ml 480 ml Output Total 750 ml 900 ml 1000 ml Balance -235 ml -600 ml -520 ml Intake Oral 480 ml 300 ml 480 ml IV Total 35 ml Output Urine Total 750 ml 900 ml 1000 ml # Bowel Movements 0 0 Physical Exam GENERAL: Well-nourished, well-developed patient. SKIN: Warm and dry. HEAD: Normocephalic. EYES: No scleral icterus. No injection or drainage. NECK: Supple, trachea midline. No JVD or lymphadenopathy. CARDIOVASCULAR: Regular rate and rhythm without murmurs, gallops, or rubs. RESPIRATORY: Breath sounds equal bilaterally. No accessory muscle use. Coarse anteriorly, no crackles. GASTROINTESTINAL: Abdomen soft, non-tender, nondistended. EXTREMITIES: No cyanosis, or edema. NEUROLOGICAL: Awake, alert, and oriented x 3. Non-focal. Laboratory Laboratory Tests Test 08/15/17 23:05 08/16/17 04:57 Blood Urea Nitrogen 47 MG/DL Creatinine 4.07 MG/DL Random Glucose 102 MG/DL Calcium Level 8.4 MG/DL Magnesium Level 2.1 MG/DL Sodium Level 139 MEQ/L Potassium Level 3.7 MEQ/L Chloride Level 105 MEQ/L Carbon Dioxide Level 26.4 MEQ/L Anion Gap 8 MEQ/L Estimat Glomerular Filtration Rate 13 ML/MIN Imaging Last Impressions Chest X-Ray 08/13/17921 Signed Impressions: Service Date/Time: Sunday, August 13, 2017 09:41 - CONCLUSION: The lungs are clear. Uli Lord MD Assessment and Plan Problem List: (1) Cardiomyopathy ICD Codes: I42.9 - Cardiomyopathy, unspecified Status: Chronic Plan: Feels better on milrinone. DC IV drip today. Further management pending clinical course and Dr. anguiano's continued evaluation. Extensive education done on medication and follow-up compliance. (2) Stage 4 chronic kidney disease ICD Codes: N18.4 - Chronic kidney disease, stage 4 (severe) Status: Chronic Plan: GFR remains 13. Dr. Allen following. 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
[2017-08-16] MEDS: DOCUSATE SODIUM 50 MG/SENNA 8.6 MG TAB PO SCH ×4 (09:06→21:37)
[2017-08-16 09:11] LABS: URINE TOTAL PROTEIN TIMED 455.2 MG/DL
[2017-08-16] MEDS: FUROSEMIDE 40 MG/4 ML VIAL IV PUSH SCH ×2 (09:15→17:30)
[2017-08-16] MEDS: SODIUM CHLORIDE 0.9% FLUSH 10 ML FLUSH IV FLUSH SCH ×2 (09:16→21:33)
[2017-08-16] MEDS: CARVEDILOL 12.5 MG TAB PO SCH ×2 (09:16→21:33)
--- NOTE | 2017-08-16 09:45 | HHI.PR ---
Subjective Remarks Follow-up heart failure. Improving shortness of breath. Still with expiratory wheezes now with productive cough with yellow phlegm. Patient was told she has asthma by her grandma.. Discussed with RN Objective Vitals Vital Signs Date Time Temp Pulse Resp B/P (MAP) Pulse Ox O2 Delivery O2 Flow Rate FiO2 08/16/17 09:01 86 08/16/17 08:04 95 21 08/16/17 08:00 78 08/16/17 08:00 98.2 83 16 111/61 (78) 95 08/16/17 07:06 80 08/16/17 06:00 78 08/16/17 05:00 76 08/16/17 04:00 82 08/16/17 03:00 79 08/16/17 03:00 97.6 94 18 117/68 (84) 96 08/16/17 02:00 83 08/16/17 01:00 80 08/16/17 00:00 79 08/15/17 23:00 97.9 81 18 131/81 (98) 100 08/15/17 23:00 80 08/15/17 22:00 92 08/15/17 21:00 83 08/15/17 20:45 98 21 08/15/17 20:26 90 132/83 08/15/17 20:00 86 08/15/17 19:00 89 08/15/17 19:00 98.2 89 18 132/83 (99) 98 08/15/17 18:08 76 08/15/17 17:00 87 08/15/17 16:00 77 08/15/17 15:00 97.3 77 16 129/73 (91) 100 08/15/17 15:00 80 08/15/17 14:00 76 08/15/17 13:10 74 08/15/17 12:11 71 08/15/17 12:00 98.0 82 16 123/71 (88) 98 08/15/17 11:04 81 08/15/17 10:00 87 I/O 08/15/17 08/15/17 08/15/17 08/16/17 08/16/17 08/16/17 07:00 15:00 23:00 07:00 15:00 23:00 Intake Total 515 ml 300 ml 480 ml 40 ml Output Total 750 ml 900 ml 1000 ml Balance -235 ml -600 ml -520 ml 40 ml Intake Oral 480 ml 300 ml 480 ml IV Total 35 ml 40 ml Output Urine Total 750 ml 900 ml 1000 ml # Bowel Movements 0 0 Result Diagram: 08/13/17 0950 08/16/17 0457 Imaging Last Impressions Chest X-Ray 08/13/17921 Signed Impressions: Service Date/Time: Sunday, August 13, 2017 09:41 - CONCLUSION: The lungs are clear. Uli Lord MD Objective Remarks GENERAL: This is a well-nourished, well-developed patient, in no apparent distress. On room air Skin: No rashes or lesions NECK: No stridor CARDIOVASCULAR: Regular rate and rhythm without murmurs, gallops, or rubs. RESPIRATORY: Breath sounds equal bilaterally. Mild expiratory wheezes. No retractions GASTROINTESTINAL: Abdomen soft, non-tender, nondistended. No guarding. MUSCULOSKELETAL: Extremities without clubbing, cyanosis but with trace bilateral lower lower extremity pitting edema. No joint tenderness, effusion, or edema noted. No calf tenderness. Negative Homans sign bilaterally. NEUROLOGICAL: Awake and alert. Cranial nerves II through XII intact. Motor and sensory grossly within normal limits. Five out of 5 muscle strength in all muscle groups. Normal speech. Procedures none A/P Problem List: (1) Acute on chronic systolic (congestive) heart failure ICD Code: I50.23 - Acute on chronic systolic (congestive) heart failure Status: Acute (2) Stage 4 chronic kidney disease ICD Code: N18.4 - Chronic kidney disease, stage 4 (severe) Status: Chronic Assessment and Plan This is a 27-year-old female with a history of cardiomyopathy EF of 15% status post AICD, chronic kidney disease stage IV to 5, anxiety, hyperlipidemia, underlying diabetes, hypertension and neuropathy. She presents to the emergency room because of shortness of breath. This is a third visit in the past 10 days. She reports of worsening shortness of breath, PND and sleeps on a recliner. She also complains of lateral lower extremity swelling when she is on her feet. Acute on chronic systolic heart failure exacerbation with history of cardiomyopathy status post AICD. Worsening BNP. Chest x-ray image interpreted by me with no acute cardiopulmonary disease. EKG with sinus rhythm with LVH tracing interpreted by me. Hemalatha telemetry improving. Discontinue milrinone drip. Continue Coreg and diuresis with IV Lasix. Unable to start NORMAN inhibitor secondary to renal dysfunction. Monitor on telemetry. Acute asthmatic bronchitis. Start IV Solu-Medrol, Levaquin with recent hospitalization and MDI. As needed albuterol nebulizations. We will hold off with racemic epi because of increased risk of arrhythmias Chronic kidney disease stage IV-V. Nonoliguric. Was on dialysis for short period of time. Creatinine slightly better today. Avoid nephrotoxins. Nephrology has discussed dialysis. Patient had biopsy will obtain report Borderline diabetes. Fingerstick stable we'll discontinue sliding scale Hypertension. Continue Coreg and IV Lasix. As needed hydralazine and clonidine. Monitor Neuropathy. Tramadol as needed. Consider Lyrica or Neurontin DVT prophylaxis with SCD and early ambulation Discharge Planning Discharge when cleared by cardiology and nephrology Micha Jorge MD Aug 16, 2017 09:45
--- NOTE | 2017-08-16 10:17 | HHI.DCPOC ---
Discharge Care Plan Diagnosis: (1) Systolic CHF, acute on chronic (2) Chronic kidney disease Your Health Problems Are: Difficulty with ADL Exercise Tolerance Goals to Promote Your Health * To prevent worsening of your condition and complications * To maintain your health at the optimal level Directions to Meet Your Goals Take your medications as prescribed Follow your dietary instruction Follow activity as directed Keep your appointments as scheduled Take your immunizations and boosters as scheduled If your symptoms worsen call your PCP, if no PCP go to Urgent Care Center or Emergency Room Smoking is Dangerous to Your Health. Avoid second hand smoke Call the 24-hour hour crisis hotline for domestic abuse at Micha Jorge MD Aug 16, 2017 10:17
[2017-08-16] MEDS ORDERED: ULTR50TA5 PO (10:19)
[2017-08-16] MEDS ORDERED: LEVA750T9 PO (10:19)
[2017-08-16] MEDS ORDERED: VENTAER INH (10:19)
[2017-08-16] MEDS ORDERED: LEVOFLOXACIN 750 MG TAB PO SCH (11:00)
--- NOTE | 2017-08-16 11:48 | HHI.NPPN ---
Subjective History of Present Illness 27-year-old female with past medical history of dilated cardiomyopathy with low ejection fraction, history of chronic kidney disease, hyperlipidemia, anxiety, diabetes mellitus, hypertension, peripheral neuropathy, came to the hospital with complaint of worsening shortness of breath and edema of the legs and abdominal wall. I was called to see the patient because of elevated BUN and creatinine. The patient has known history of chronic kidney disease. She was seen by me when she was admitted in February of this year and at that time her creatinine was 2.6-2.7 and now she came with a creatinine of 4.0. Additional Remarks Patient is alert, sitting on chair, no SOB, swelling improving. Review of Systems General Constitutional: Fatigue Respiratory Lungs: SOB, Cough Cardiovascular Cardiac: Edema, CONNORS Objective Data Data 08/16/17 08/17/17 19:00 07:00 Intake Total 40 ml Balance 40 ml IV Total 40 ml Vital Signs Date Time Temp Pulse Resp B/P (MAP) Pulse Ox O2 Delivery O2 Flow Rate FiO2 08/16/17 10:06 87 08/16/17 09:01 86 08/16/17 08:04 95 21 08/16/17 08:00 78 08/16/17 08:00 98.2 83 16 111/61 (78) 95 08/16/17 07:06 80 08/16/17 06:00 78 08/16/17 05:00 76 08/16/17 04:00 82 08/16/17 03:00 79 08/16/17 03:00 97.6 94 18 117/68 (84) 96 08/16/17 02:00 83 08/16/17 01:00 80 08/16/17 00:00 79 08/15/17 23:00 97.9 81 18 131/81 (98) 100 08/15/17 23:00 80 08/15/17 22:00 92 08/15/17 21:00 83 08/15/17 20:45 98 21 08/15/17 20:26 90 132/83 08/15/17 20:00 86 08/15/17 19:00 89 08/15/17 19:00 98.2 89 18 132/83 (99) 98 08/15/17 18:08 76 08/15/17 17:00 87 08/15/17 16:00 77 08/15/17 15:00 97.3 77 16 129/73 (91) 100 08/15/17 15:00 80 08/15/17 14:00 76 08/15/17 13:10 74 08/15/17 12:11 71 08/15/17 12:00 98.0 82 16 123/71 (88) 98 -: 08/13/17 0950 08/16/17 0457 Physical Exam General Appearance: No Acute Distress, Comfortable Eyes Eye Exam: Pupils Equal Throat Throat Exam: Oral Mucosa [place] & Moist Neck Neck Exam: Neck Supple Pulmonary Resp Exam: Breath Sounds Equal, No Distress, Decreased Bases, Diminished Breath Sounds Cardiology CV Exam: Regular, Normal Sinus Rhythm Gastrointestinal/Abdomen GI Exam: Soft, Non-Tender Extremeties Extremities Exam: Moderate Edema Neurologic Neuro Exam: Alert, Awake, Oriented Assessment/Plan Assessment Summary: Fluid/Volume Overload, CHF, Hypertension, CKD Stage IV Problem List: (1) DM (diabetes mellitus) ICD Codes: E11.9 - Type 2 diabetes mellitus without complications Status: Acute (2) Anxiety ICD Codes: F41.9 - Anxiety disorder, unspecified Status: Acute (3) Non-ischemic cardiomyopathy ICD Codes: I42.8 - Other cardiomyopathies Status: Chronic (4) Systolic CHF, chronic ICD Codes: I50.22 - Chronic systolic (congestive) heart failure Status: Acute (5) Anasarca ICD Codes: R60.1 - Generalized edema Status: Acute (6) Stage 4 chronic kidney disease ICD Codes: N18.4 - Chronic kidney disease, stage 4 (severe) Status: Chronic (7) TIMOTHY (acute kidney injury) ICD Codes: N17.9 - Acute kidney failure, unspecified Status: Acute Plan Patient has stable Creatinine. Possibly has advance renal disease with some Acute worsening. BP is stable. K is normal. Continue Lasix 40 mg BID. 24 Hr. urine protein is pending. Had negative serology in past. Was on HD for almost 2 months at [facility] 2 years ago. I discussed with her about Dialysis, she will be better candidate for PD. She had Kidney Biopsy there, will try to get the report. Jeromy Allen MD Aug 16, 2017 11:48
[2017-08-16] MEDS: ALBUTEROL SULFATE 90 MCG/ACT HFA 8 GM INHALER INH SCH ×3 (12:08→23:49)
[2017-08-16] MEDS: methylPREDNISolone SOD SUCC 40 MG/1 ML VIAL IV PUSH SCH ×2 (12:11→21:33)
[2017-08-17] VITALS (14 sets, daily range): BP systolic 123–125; BP diastolic 80–85; PULSE 74–92; RESP 18; TEMP 98–98.4; O2SAT 98–100
[2017-08-17] MEDS: RESP: ALBUTEROL 2.5 MG/3 ML NEB (PRN) NEB (03:06)
[2017-08-17] MEDS: ALBUTEROL SULFATE 90 MCG/ACT HFA 8 GM INHALER INH SCH (05:38)
[2017-08-17 05:45] LABS: BICARBONATE 22.4 MEQ/L (21.0-32.0); POTASSIUM 4.4 MEQ/L (3.5-5.1)
[2017-08-17] MEDS: CARVEDILOL 12.5 MG TAB PO SCH (08:40)
[2017-08-17] MEDS: ACETAMINOPHEN 325 MG TAB PO PRN (08:40)
[2017-08-17] MEDS: DOCUSATE SODIUM 50 MG/SENNA 8.6 MG TAB PO SCH (08:41)
[2017-08-17] MEDS: FUROSEMIDE 40 MG/4 ML VIAL IV PUSH SCH (08:42)
[2017-08-17] MEDS: methylPREDNISolone SOD SUCC 40 MG/1 ML VIAL IV PUSH SCH (08:42)
[2017-08-17] MEDS: SODIUM CHLORIDE 0.9% FLUSH 10 ML FLUSH IV FLUSH SCH (09:00)
--- NOTE | 2017-08-17 09:23 | HHI.DS ---
Discharge Summary Admission Date Aug 14, 2017 at 07:45 Discharge Date: Aug 17, 2017 Admitting Diagnosis chf exacerbation (1) Acute on chronic systolic (congestive) heart failure ICD Code: I50.23 - Acute on chronic systolic (congestive) heart failure Status: Acute (2) Stage 4 chronic kidney disease ICD Code: N18.4 - Chronic kidney disease, stage 4 (severe) Status: Chronic Procedures none Brief History - From Admission This is a 27-year-old female with a history of cardiomyopathy EF of 15% status post AICD, chronic kidney disease stage IV to 5, anxiety, hyperlipidemia, underlying diabetes, hypertension and neuropathy. She presents to the emergency room because of shortness of breath. This is a third visit in the past 10 days. She reports of worsening shortness of breath even at rest, PND and sleeps on a recliner. She also complains of lateral lower extremity swelling when she is on her feet. She also has a productive cough of yellow phlegm and wheezing but no fever, chills and chest pain. She has a 3 pack year smoking history quit years ago. She states she has been compliant with her medical therapy which includes Bumex and Coreg. Her nursing care partner recommended observation in [facility] and to continue Coreg. To consider milrinone drip. At this time patient pain medicine because of discomfort from swelling. Aware I'm not giving her any narcotics. All other systems reviewed negative CBC/BMP: 08/13/17 0950 08/17/17 0418 Significant Findings Laboratory Tests Test 08/14/17 23:10 08/15/17 05:30 08/15/17 23:05 08/16/17 04:57 Urine Protein 300 mg/dL (NEG-TRACE) Urine Occult Blood TRACE (NEG) Urine Bacteria RARE /hpf (NONE) Blood Urea Nitrogen 48 MG/DL (7-18) 47 MG/DL (7-18) Creatinine 4.11 MG/DL (0.50-1.00) 4.07 MG/DL (0.50-1.00) Estimat Glomerular Filtration Rate 13 ML/MIN (>89) 13 ML/MIN (>89) Urine Total Protein 24 Hour 8649 MG/24HR (0-150) Calcium Level 8.4 MG/DL (8.5-10.1) Test 08/17/17 04:18 Blood Urea Nitrogen 53 MG/DL (7-18) Creatinine 4.13 MG/DL (0.50-1.00) Random Glucose 231 MG/DL (74-106) Calcium Level 8.4 MG/DL (8.5-10.1) Sodium Level 135 MEQ/L (136-145) Estimat Glomerular Filtration Rate 13 ML/MIN (>89) Imaging Last Impressions Chest X-Ray 08/13/17921 Signed Impressions: Service Date/Time: Sunday, August 13, 2017 09:41 - CONCLUSION: The lungs are clear. Uli Lord MD PE at Discharge GENERAL: This is a well-nourished, well-developed patient, in no apparent distress. On room air Skin: No rashes or lesions NECK: No stridor CARDIOVASCULAR: Regular rate and rhythm without murmurs, gallops, or rubs. RESPIRATORY: Breath sounds equal bilaterally. Resolved expiratory wheezes. No retractions GASTROINTESTINAL: Abdomen soft, non-tender, nondistended. No guarding. MUSCULOSKELETAL: Extremities without clubbing, cyanosis but with trace bilateral lower lower extremity pitting edema. No joint tenderness, effusion, or edema noted. No calf tenderness. Negative Homans sign bilaterally. NEUROLOGICAL: Awake and alert. Cranial nerves II through XII intact. Motor and sensory grossly within normal limits. Five out of 5 muscle strength in all muscle groups. Normal speech. Hospital Course This is a 27-year-old female with a history of cardiomyopathy EF of 15% status post AICD, chronic kidney disease stage IV to 5, anxiety, hyperlipidemia, underlying diabetes, hypertension and neuropathy. She presents to the emergency room because of shortness of breath. This is a third visit in the past 10 days. She reports of worsening shortness of breath, PND and sleeps on a recliner. She also complains of lateral lower extremity swelling when she is on her feet. Acute on chronic systolic heart failure exacerbation with history of cardiomyopathy status post AICD. Worsening BNP. Chest x-ray image interpreted by me with no acute cardiopulmonary disease. EKG with sinus rhythm with LVH tracing interpreted by me. Clinically improving. Discontinued milrinone drip. Continue Coreg and diuresis with IV Lasix. Unable to start NORMAN inhibitor secondary to renal dysfunction. Monitor on telemetry. Patient counseled regarding compliance Acute asthmatic bronchitis. Improving switch to by mouth steroid, continue Levaquin with recent hospitalization and MDI. As needed albuterol nebulizations. We will hold off with racemic epi because of increased risk of arrhythmias Chronic kidney disease stage IV-V. Nonoliguric. Was on dialysis for short period of time. Creatinine stable. Avoid nephrotoxins. Nephrology has discussed dialysis. Patient had biopsy will obtain report Borderline diabetes. Fingerstick stable we'll discontinue sliding scale Hypertension. Continue Coreg and IV Lasix. As needed hydralazine and clonidine. Monitor Neuropathy. Tramadol as needed. Consider Lyrica or Neurontin DVT prophylaxis with SCD and early ambulation Discussed with cardiology who cleared patient for discharge. Patient was informed by nephrology she is stable for discharge Pt Condition on Discharge: Fair Discharge Disposition: Discharge Home Discharge Time: > 30 minutes Discharge Instructions DIET: Follow Instructions for: Heart Healthy Diet Activities you can perform: Regular-No Restrictions, See Additionl Instruction Activities to Avoid: Driving Follow up Referrals: PCP Follow-up - 1 Week New Orders: BASIC METABOLIC PROF - 1 Week New Medications: Albuterol 18 GM Inh (Ventolin Hfa 18 GM Inh) 90 Mcg/Act Aer 2 PUFF INH Q6HR for Breathing Treatment, #1 INHALER Levofloxacin (Levaquin) 750 Mg Tablet 750 MG PO Q48H for Infection, #3 TAB Tramadol (Ultram) 50 Mg Tab 100 MG PO Q4H PRN for pain, #28 TAB Continued Medications: Bumetanide (Bumetanide) 2 Mg Tab 4 MG PO BID, TAB 0 Refills Carvedilol (Coreg) 12.5 Mg Tab 25 MG PO Q12HR for CMP, #120 TAB Micha Jorge MD Aug 17, 2017 09:23
== END 2017-08-17 11:13 | disposition home or self-care (01) | DRG 291 ==
LOC: NEPC 08:59 → NEDA 14:13 → NEDH 20:55 → OBSVTOIN 08-14 07:45 → HCIN 08-14 09:48 → HCPC 08-14 20:06
PROVIDERS: ADMIT Internal Medicine; ATTEND Internal Medicine
DX: I13.0 Hypertensive heart and chronic kidney disease with heart failure and stage 1 through stage 4 chronic kidney disease, or unspecified chronic kidney disease (principal); I50.23 Acute on chronic systolic (congestive) heart failure; O90.3 Peripartum cardiomyopathy; N17.9 Acute kidney failure, unspecified; N18.4 Chronic kidney disease, stage 4 (severe); F41.9 Anxiety disorder, unspecified; E11.42 Type 2 diabetes mellitus with diabetic polyneuropathy; E11.22 Type 2 diabetes mellitus with diabetic chronic kidney disease; J45.909 Unspecified asthma, uncomplicated; G43.909 Migraine, unspecified, not intractable, without status migrainosus; Z95.810 Presence of automatic (implantable) cardiac defibrillator; Z87.891 Personal history of nicotine dependence; Z91.19 Patient's noncompliance with other medical treatment and regimen; R60.0 Localized edema; E78.00 Pure hypercholesterolemia, unspecified
CPT/HCPCS: 71010; 76937; 80048; 81001; 82550; 82948; 83735; 83880; 84157; 84484; 85025; 85610; 85730; 90686; 93005; 94640; 94664; J1940; J2260; J2405; J2920; J7613; Q2038

== ENCOUNTER 2017-09-03 07:39 | Inpatient (IN) | payer MEDICARE, OTHER ==
[2017-09-03] VITALS (17 sets, daily range): BP systolic 123–156; BP diastolic 74–99; PULSE 76–90; RESP 18–19; TEMP 97–98.7; O2SAT 84–97
[~2017-09-03] VITALS: Ht 162.6 cm; Wt 84.5 kg
[~2017-09-03 07:39] MED LIST changes: -CEPH-460 PO; -INSU100V2 SQ; +LEVA750T9 PO; +TRAM50 PO; +VENTAER INH
[2017-09-03] MEDS ORDERED: TYLE325T PO (07:42)
[2017-09-03] MEDS ORDERED: ONDANSETRON HCL 4 MG/2 ML VIAL IV PUSH ONE (08:15)
[2017-09-03 08:17] LABS: AUTOMATED NEUTROPHIL # 3.7 TH/MM3 (1.8-7.7); BASOPHIL % 0.8 % (0.0-2.0); EOSINOPHIL # 0.1 TH/MM3 (0-0.4); EOSINOPHIL % 1.5 % (0.0-4.0); HEMATOCRIT 33.4 % (35.0-46.0); HEMO FLAGS DIFF FINAL; LYMPH % 20.9 % (9.0-44.0); MEAN CELL VOLUME 84.1 FL (80.0-100.0); MEAN CORPUSCULAR HEMOGLOBIN 26.9 PG (27.0-34.0); MEAN CORPUSCULAR HGB CONC 31.9 % (32.0-36.0); MONO % 3.4 % (0.0-8.0); NEUT % 73.4 % (16.0-70.0); PLATELET COUNT 125 TH/MM3 (150-450); RED BLOOD COUNT 3.97 MIL/MM3 (4.00-5.30); RED CELL DISTRIBUTION WIDTH 15.6 % (11.6-17.2)
[2017-09-03] MEDS: SODIUM CHLORIDE 0.9% FLUSH 10 ML FLUSH IVF PRN ×2 (08:20→09:46)
--- NOTE | 2017-09-03 08:25 | PD ---
HPI Chief Complaint: Cold / Flu Symptoms Time Seen by Provider: 07:57 Travel History International Travel<30 days: No Contact w/Intl Traveler<30days: No Traveled to known affect area: No History of Present Illness HPI 27 y/o female presents with difficulty breathing and cough since last night. She states she feels worse when she moves around. She denies other modifying factors. She denies any other concurrent complaints other than recently she had a fall a couple days ago and hit her head. She states she think she blacked out. She states that she's been taking her medications like she should except for this morning before she came in. She presents by ambulance. She has not had a chance to follow with her primary doctor since discharge 2 weeks ago as she needs to set up a new one as the person assigned to her is not available currently. Hard to catch breath. Severity is progressive. Duration is since yesterday. PFSH Past Medical History Hx Anticoagulant Therapy: No Arthritis: No Asthma: No Autoimmune Disease: No Blood Disorders: No Anxiety: Yes Depression: No Heart Rhythm Problems: Yes Cancer: No Cardiac Catheterization: Yes Cardiomyopathy: Yes Cardiovascular Problems: Yes High Cholesterol: Yes Chemotherapy: No Chest Pain: Yes Congestive Heart Failure: Yes COPD: No Cerebrovascular Accident: No Diabetes: Yes Patient Takes Glucophage: No Diminished Hearing: No Endocrine: Yes Gastrointestinal Disorders: Yes (Pancreatitis) GERD: No Genitourinary: Yes (Chronic Kidney disease) Headaches: Yes Hiatal Hernia: No Heparin Induced Thrombocytopen: No Hypertension: Yes Immune Disorder: No Implanted Vascular Access Dvce: No Kidney Stones: No Musculoskeletal: Yes (Back) Neurologic: Yes (Neuropathy) Psychiatric: No Reproductive: Yes Respiratory: Yes Integumentary: Yes (skin swelling and various bruises abdo and bilateral arms from IV sticks) Immunizations Current: Yes Migraines: Yes Radiation Therapy: No Renal Failure: Yes Seizures: No Sickle Cell Disease: No Sleep Apnea: No Thyroid Disease: No Ulcer: No Influenza Vaccination: Yes ?: Not LMP: 08/2017 : 1 Para: 1 Miscarriage: 0 : 0 Tubal Ligation: Yes Past Surgical History Abdominal Surgery: Yes (CHOLECYSTECTOMY) AICD: Yes Arteriovenous Shunt: No Body Medical Devices: PT WORE EXTERNAL LIFE VEST 05/15/13, pacer/defibrillator Cardiac Surgery: Yes (pacemaker/def 2016) Section: Yes Cholecystectomy: Yes Ear Surgery: No Endocrine Surgery: No Eye Surgery: No Genitourinary Surgery: No Gynecologic Surgery: Yes (, TUBAL) Insulin Pump: No Joint Replacement: No Neurologic Surgery: No Oral Surgery: No Pacemaker: Yes Thoracic Surgery: No Tonsillectomy: Yes Other Surgery: Yes (, Tubal ligation, Gallbladder) Social History Alcohol Use: No Tobacco Use: No Substance Use: Yes (marijuana) Allergies-Medications (Allergen,Severity, Reaction): Coded Allergies: niacin (Verified Allergy, Intermediate, 09/03/17) PT STATES SHE FEELS SHAKY AND SWEATY ketorolac (Unverified Adverse Reaction, Mild, SHAKING, 09/03/17) Reported Meds & Prescriptions Reported Meds & Active Scripts Active Coreg (Carvedilol) 12.5 Mg Tab 25 Mg PO Q12HR Reported Tylenol (Acetaminophen) 325 Mg Tab 650 Mg PO Q4H PRN Bumetanide 2 Mg Tab 4 Mg PO BID Review of Systems Except as stated in HPI: all other systems reviewed are Neg Physical Exam Narrative GENERAL: Well-nourished, well-developed patient. SKIN: Warm and dry. HEAD: Normocephalic and abrasion noted to nasal bridge EYES: No injection or drainage. ENT: No nasal drainage noted. NECK: Supple, trachea midline. No pain with range of motion in midline CARDIOVASCULAR: Regular rate and rhythm RESPIRATORY: Expiratory wheezing bilaterally. No accessory muscle use. GASTROINTESTINAL: Abdomen soft, non-tender, nondistended. EXTREMITIES: Only mild edema noted to lower extremities, abrasion noted to right mid lower leg without specific joint pain BACK: Nontender without obvious deformity. NEUROLOGICAL: Awake and alert. Motor and sensory grossly within normal limits. Normal speech. Data Data Last Documented VS Vital Signs Date Time Temp Pulse Resp B/P (MAP) Pulse Ox O2 Delivery O2 Flow Rate FiO2 09/03/17 10:15 76 18 138/89 (105) 96 09/03/17 09:11 Room Air 09/03/17 07:43 97.9 Orders Orders Complete Blood Count With Diff (09/03/17 07:57) Comprehensive Metabolic Panel (09/03/17 07:57) B-Type Natriuretic Peptide (09/03/17 07:57) Act Partial Throm Time (Ptt) (09/03/17 07:57) Prothrombin Time / Inr (Pt) (09/03/17 07:57) Magnesium (Mg) (09/03/17 07:57) Ckmb (Isoenzyme) Profile (09/03/17 07:57) Troponin I (09/03/17 07:57) Iv Access Insert/Monitor (09/03/17 07:57) Electrocardiogram (09/03/17 07:57) Ecg Monitoring (09/03/17 07:57) Oximetry (09/03/17 07:57) Oxygen Administration (09/03/17 07:57) Chest, Single Ap (09/03/17 07:57) Sodium Chloride 0.9% Flush (Ns Flush) (09/03/17 08:00) Ct Brain W/O Iv Contrast(Rout) (09/03/17 ) Ondansetron Inj (Zofran Inj) (09/03/17 08:15) Furosemide Inj (Lasix Inj) (09/03/17 09:00) Vascular Access Team Consult/P PRN (09/03/17 08:51) Vascular Poc Ultrasound (09/03/17 ) Acetaminophen (Tylenol) (09/03/17 10:15) Admit Order (Ed Use Only) (09/03/17 11:20) Consult Cardiology (09/03/17 ) Labs Laboratory Tests Test 09/03/17 08:09 White Blood Count 5.0 TH/MM3 Red Blood Count 3.97 MIL/MM3 Hemoglobin 10.7 GM/DL Hematocrit 33.4 % Mean Corpuscular Volume 84.1 FL Mean Corpuscular Hemoglobin 26.9 PG Mean Corpuscular Hemoglobin Concent 31.9 % Red Cell Distribution Width 15.6 % Platelet Count 125 TH/MM3 Mean Platelet Volume 10.1 FL Neutrophils (%) (Auto) 73.4 % Lymphocytes (%) (Auto) 20.9 % Monocytes (%) (Auto) 3.4 % Eosinophils (%) (Auto) 1.5 % Basophils (%) (Auto) 0.8 % Neutrophils # (Auto) 3.7 TH/MM3 Lymphocytes # (Auto) 1.0 TH/MM3 Monocytes # (Auto) 0.2 TH/MM3 Eosinophils # (Auto) 0.1 TH/MM3 Basophils # (Auto) 0.0 TH/MM3 CBC Comment DIFF FINAL Differential Comment Prothrombin Time 11.4 SEC Prothromb Time International Ratio 1.0 RATIO Activated Partial Thromboplast Time 24.6 SEC Blood Urea Nitrogen 67 MG/DL Creatinine 4.20 MG/DL Random Glucose 115 MG/DL Total Protein 6.1 GM/DL Albumin 2.4 GM/DL Calcium Level 8.0 MG/DL Magnesium Level 2.1 MG/DL Alkaline Phosphatase 129 U/L Aspartate Amino Transf (AST/SGOT) 38 U/L Alanine Aminotransferase (ALT/SGPT) 44 U/L Total Bilirubin 0.4 MG/DL Sodium Level 140 MEQ/L Potassium Level 4.2 MEQ/L Chloride Level 104 MEQ/L Carbon Dioxide Level 25.0 MEQ/L Anion Gap 11 MEQ/L Estimat Glomerular Filtration Rate 13 ML/MIN Total Creatine Kinase 54 U/L Troponin I 0.03 NG/ML B-Type Natriuretic Peptide 3493 PG/ML MDM Medical Decision Making Medical Screen Exam Complete: Yes Emergency Medical Condition: Yes Medical Record Reviewed: Yes (past history confirm, recent hospitalization reviewed with milrinone drip noted) Interpretation(s) EKG is sinus rhythm at 80 without new changes from August 13 CBC & BMP Diagram 09/03/17 08:09 Total Protein 6.1 L, Albumin 2.4 L, Calcium Level 8.0 L, Magnesium Level 2.1, Alkaline Phosphatase 129 H, Aspartate Amino Transf (AST/SGOT) 38 H, Alanine Aminotransferase (ALT/SGPT) 44, Total Bilirubin 0.4 Last 24 hours Impressions Chest X-Ray 09/03/17 0757 Signed Impressions: Service Date/Time: Sunday, September 03, 2017 09:00 - CONCLUSION: 1. Cardiomegaly. Clear lungs. Uli Bean Jr., MD Head CT 09/03/17 0000 Signed Impressions: Service Date/Time: Sunday, September 03, 2017 08:30 - CONCLUSION: Negative noncontrast head CT. Josef Garcia MD Differential Diagnosis CHF, pneumonia, rib fracture, pneumothorax, bleed Narrative Course Will check blood work, chest x-ray, CT brain and reevaluate. Patient given Zofran for nausea as she requested something for this Patient with worsening BNP and creatinine. No hyperkalemia. Chest x-ray stable. Vitals are stable. 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 Given Lasix Patient updated and agrees to admission Physician Communication Physician Communication dr anguiano states to send to [place] [facility] in [facility] dr palacios agrees to admit Diagnosis Primary Impression: Systolic CHF, acute on chronic Additional Impressions: Stage 4 chronic kidney disease Fall Qualified Codes: W19.XXXA - Unspecified fall, initial encounter Admitting Information Admitting Physician Requests: Admit Donna Honeycutt MD Sep 03, 2017 08:25
[2017-09-03 08:26] LABS: CHLORIDE 104 MEQ/L (98-107); POTASSIUM 4.2 MEQ/L (3.5-5.1); SODIUM (NA) 140 MEQ/L (136-145)
[2017-09-03 08:29] LABS: ANION GAP 11 MEQ/L (5-15); APTT (PATIENT) 24.6 SEC (24.3-30.1); BLOOD UREA NITROGEN 67 MG/DL (7-18); MAGNESIUM 2.1 MG/DL (1.5-2.5); PROTHROMBIN TIME - PATIENT 11.4 SEC (9.8-11.6)
[2017-09-03 08:32] LABS: ALT (GPT) 44 U/L (10-53); AST (GOT) 38 U/L (15-37); GLOMERULAR FILTRATION RATE 13 ML/MIN (>89)
[2017-09-03 08:34] LABS: TOTAL BILIRUBIN ADULT 0.4 MG/DL (0.2-1.0)
[2017-09-03 08:35] LABS: ALKALINE PHOSPHATASE 129 U/L (45-117)
[2017-09-03 08:40] LABS: CREATINE KINASE 54 U/L (26-192)
[2017-09-03] MEDS ORDERED: FUROSEMIDE 40 MG/4 ML VIAL IV PUSH ONE (09:00)
--- NOTE | 2017-09-03 09:09 | RADRPT ---
EXAM DATE/TIME: 09/03/2017 08:30 [facility] COMPARISON: No previous studies available for comparison. INDICATIONS : Fall. Frontal pain. RADIATION DOSE: 60.18 CTDIvol (mGy) MEDICAL HISTORY : None SURGICAL HISTORY : None. ENCOUNTER: Initial ACUITY: 1 day PAIN SCALE: 5/10 LOCATION: frontal TECHNIQUE: Multiple contiguous axial images were obtained of the head. Using automated exposure control and adj ustment of the mA and/or kV according to patient size, radiation dose was kept as low as reasonably a chievable to obtain optimal diagnostic quality images. DICOM format image data is available electro nically for review and comparison. FINDINGS: CEREBRUM: The ventricles are normal. No evidence of midline shift, mass lesion, hemorrhage or acute infarction . No extra-axial fluid collections are seen. POSTERIOR FOSSA: The cerebellum and brainstem demonstrate no acute finding. The 4th ventricle is midline. The cerebe llopontine angle is unremarkable. EXTRACRANIAL: Visualized sinuses are clear. SKULL: The calvaria is intact. No evidence of skull fracture. CONCLUSION: Negative noncontrast head CT. Josef Garcia MD on September 03, 2017 at 9:06 Board Certified Radiologist. This report was verified electronically.
--- NOTE | 2017-09-03 09:14 | RADRPT ---
EXAM DATE/TIME: 09/03/2017 09:00 [facility] COMPARISON: CHEST SINGLE AP, August 13, 2017, 9:41. INDICATIONS : Short of breath, cough, congestion. MEDICAL HISTORY : Congestive heart failure. Hypercholesterolemia. Pancreatitis.Neuropathy.Migraines. CardiomyopathyIrre gular heartbeat. HTN.Chronic kidney. disease. Renal failure.Diabetes. Anxiety. SURGICAL HISTORY : Tonsillectomy.Pacemaker. Cholecystectomy.Cardiac cath. section.Tubal ligation. Dialysis. Blo od transfusions ENCOUNTER: Initial ACUITY: 3 days PAIN SCORE: 0/10 LOCATION: Bilateral chest FINDINGS: A single view of the chest demonstrates the lungs to be symmetrically aerated without evidence of mas s, infiltrate or effusion. Moderate cardiomegaly is stable. No pulmonary vascular engorgement. Left-s ided pacing device. Osseous structures are intact. CONCLUSION: 1. Cardiomegaly. Clear lungs. Uli Bean Jr., MD on September 03, 2017 at 9:10 Board Certified Radiologist. This report was verified electronically.
[2017-09-03] MEDS ORDERED: ACETAMINOPHEN 325 MG TAB PO ONE (10:15)
--- NOTE | 2017-09-03 14:02 | EKG ---
Date Performed: 09/03/2017 Time Performed: 08:04:17 PTAGE: 27 years EKG: Sinus rhythm POSSIBLE LEFT ATRIAL ENLARGEMENT LEFT VENTRICULAR HYPERTROPHY AND ST-T CHANGE ABNORMAL ECG PREVIOUS TRACING : 08/13/2017 09.46 Compared to prior tracing no significant change DOCTOR: Moise Blakely Interpretating Date/Time 09/03/2017 13:59:22
[2017-09-03] MEDS ORDERED: BUMETANIDE INJ 1 MG/4 ML VIAL IV PUSH ONE (16:15)
--- NOTE | 2017-09-03 16:15 | HHI.HP ---
HPI Service [facility] Primary Care Physician No Primary Care Physician Admission Diagnosis chf exacerbation Diagnoses: Travel History International Travel<30 Days: No Contact w/Intl Traveler <30 Da: No Traveled to Known Affected Are: No History of Present Illness coughed all night long was short of breath could not even walk to bathroom have been sitting on recliner all night long took inahalors was prescribed inahlors 2 weeks ago then mom and her called ems was in skilled nursing for 90 days - got out 05/11- 07/22/17 then skilled nursing is full of black mold worsening since then post cardiomyopathy - kid is now 4 yo last echo in nov 15% =60% ??? have been seeing transplant doc in [place] has aiclilliana anderson last admission - d/c on 08/16/17 has freq heart failure admissions to hospital even before the skilled nursing time - for chf reports syncope 2 nights ago while standing outside to get fresh air does not have any premonitory symptoms last aicd check was 08/05 denies firing of it was having trouble with med ride reports compliance takes under 44ounces a day- said about 32ounce vomited once today am no nausea/ no no fever/ no blood / no urinary Past Family Social History Past Medical History htn borderline dm cardiomyopathy on transplant eval s/p aicd ckd IV - V - Dr Allen Past Surgical History coronary angiogram acid / ppm c section tubal ligation cholecystectomy tonsilectomy Allergies: Coded Allergies: niacin (Verified Allergy, Intermediate, 09/03/17) PT STATES SHE FEELS SHAKY AND SWEATY ketorolac (Unverified Adverse Reaction, Mild, SHAKING, 09/03/17) Family History mom- htn, rheumatoid arthritis Social History quit smoking about 5 yrs ago no drugs, occasional weed no etoh Physical Exam Vital Signs Vital Signs Date Time Temp Pulse Resp B/P (MAP) Pulse Ox O2 Delivery O2 Flow Rate FiO2 09/03/17 15:13 97.6 77 18 132/77 (95) 95 09/03/17 14:20 85 18 144/94 (111) 97 09/03/17 13:33 83 18 140/98 (112) 95 Room Air 09/03/17 12:00 76 18 145/95 (112) 96 Room Air 09/03/17 11:30 86 19 148/76 (100) 96 Room Air 09/03/17 10:15 76 18 138/89 (105) 96 09/03/17 09:11 87 18 123/81 (95) 96 Room Air 09/03/17 08:17 97 Room Air 09/03/17 08:17 97 Room Air 09/03/17 07:52 17 97 Room Air 09/03/17 07:43 97.9 84 18 156/74 (101) 97 Physical Exam GENERAL: This is a well-nourished, well-developed patient, in no apparent distress. SKIN: No rashes, ecchymoses or lesions. Cool and dry. HEAD: Atraumatic. Normocephalic. No temporal or scalp tenderness. EYES: PNo scleral icterus. No injection or drainage. ENT: Nose without bleeding, purulent drainage or septal hematoma. Airway patent. NECK: Trachea midline. No JVD CARDIOVASCULAR: Regular rate and rhythm without murmurs, gallops, or rubs. RESPIRATORY: constant dry cough, bilateral expiratory wheezing GASTROINTESTINAL: Abdomen soft, non-tender, nondistended. . No guarding. MUSCULOSKELETAL: Extremities without clubbing, cyanosis. mild 1+ pitting edema. No calf tenderness. NEUROLOGICAL: Awake and alert. Motor and sensory grossly within normal limits. Normal speech. Laboratory Laboratory Tests Test 09/03/17 08:09 White Blood Count 5.0 Red Blood Count 3.97 Hemoglobin 10.7 Hematocrit 33.4 Mean Corpuscular Volume 84.1 Mean Corpuscular Hemoglobin 26.9 Mean Corpuscular Hemoglobin Concent 31.9 Red Cell Distribution Width 15.6 Platelet Count 125 Mean Platelet Volume 10.1 Neutrophils (%) (Auto) 73.4 Lymphocytes (%) (Auto) 20.9 Monocytes (%) (Auto) 3.4 Eosinophils (%) (Auto) 1.5 Basophils (%) (Auto) 0.8 Neutrophils # (Auto) 3.7 Lymphocytes # (Auto) 1.0 Monocytes # (Auto) 0.2 Eosinophils # (Auto) 0.1 Basophils # (Auto) 0.0 CBC Comment DIFF FINAL Differential Comment Prothrombin Time 11.4 Prothromb Time International Ratio 1.0 Activated Partial Thromboplast Time 24.6 Blood Urea Nitrogen 67 Creatinine 4.20 Random Glucose 115 Total Protein 6.1 Albumin 2.4 Calcium Level 8.0 Magnesium Level 2.1 Alkaline Phosphatase 129 Aspartate Amino Transf (AST/SGOT) 38 Alanine Aminotransferase (ALT/SGPT) 44 Total Bilirubin 0.4 Sodium Level 140 Potassium Level 4.2 Chloride Level 104 Carbon Dioxide Level 25.0 Anion Gap 11 Estimat Glomerular Filtration Rate 13 Total Creatine Kinase 54 Troponin I 0.03 B-Type Natriuretic Peptide 3493 Result Diagram: 09/03/17 0809 09/03/17 0809 Imaging Last 48 hours Impressions Chest X-Ray 09/03/17 0757 Signed Impressions: Service Date/Time: Sunday, September 03, 2017 09:00 - CONCLUSION: 1. Cardiomegaly. Clear lungs. Uli Bean Jr., MD Head CT 09/03/17 0000 Signed Impressions: Service Date/Time: Sunday, September 03, 2017 08:30 - CONCLUSION: Negative noncontrast head CT. Josef Garcia MD Capindrai VTE Risk Assessment Caprini VTE Risk Assessment: Mod/High Risk (score >= 2) Caprini Risk Assessment Model Point Value = 1 Point Value = 2 Point Value = 3 Point Value = 5 Age 41-60 Minor surgery BMI > 25 kg/m2 Swollen legs Varicose veins or History of unexplained or recurrent spontaneous Oral contraceptives or hormone replacement Sepsis (< 1 month) Serious lung disease, including pneumonia (< 1 month) Abnormal pulmonary function Acute myocardial infarction Congestive heart failure (< 1 month) History of inflammatory bowel disease Medical patient at bed rest Age 61-74 Arthroscopic surgery Major open surgery (> 45 min) Laparoscopic surgery (> 45 min) Malignancy Confined to bed (> 72 hours) Immobilizing plaster cast Central venous access Age >= 75 History of VTE Family history of VTE Factor V Leiden Prothrombin [id number] Lupus anticoagulant Anticardiolipin antibodies Elevated serum homocysteine Heparin-induced thrombocytopenia Other congenital or acquired thrombophilia Stroke (< 1 month) Elective arthroplasty Hip, pelvis, or leg fracture Acute spinal cord injury (< 1 month) Prophylaxis Regimen Total Risk Factor Score Risk Level Prophylaxis Regimen 0-1 Low Early ambulation 2 Moderate Order ONE of the following: *Sequential Compression Device (SCD) *Heparin 5000 units SQ BID 3-4 Higher Order ONE of the following medications: *Heparin 5000 units SQ TID *Enoxaparin/Lovenox 40 mg SQ daily (WT < 150 kg, CrCl > 30 mL/min) *Enoxaparin/Lovenox 30 mg SQ daily (WT < 150 kg, CrCl > 10-29 mL/min) *Enoxaparin/Lovenox 30 mg SQ BID (WT < 150 kg, CrCl > 30 mL/min) AND/OR *Sequential Compression Device (SCD) 5 or more Highest Order ONE of the following medications: *Heparin 5000 units SQ TID (Preferred with Epidurals) *Enoxaparin/Lovenox 40 mg SQ daily (WT < 150 kg, CrCl > 30 mL/min) *Enoxaparin/Lovenox 30 mg SQ daily (WT < 150 kg, CrCl > 10-29 mL/min) *Enoxaparin/Lovenox 30 mg SQ BID (WT < 150 kg, CrCl > 30 mL/min) AND *Sequential Compression Device (SCD) Assessment and Plan Assessment and Plan bronchitis - kids in school and has similar symptoms chf - acute on chronic exacerbation syncope 2 nights ago htn borderline dm cardiomyopathy on transplant eval s/p aicd ckd IV - V - Dr Allen Plan: pt received lasix 40mg iv in ER diuresed and felt better start on bumex 2mg iv now, and 1mg iv q12hrs for next 24hrs will need to switch to po in about 24hrs if improved- due to renal failure suspects pt needs more fluid restriction properly chf teaching will check aicd as pt had syncope 2 nights ago echo carotid sono- previous smoker resume home meds dvt prophylaxis with heparin Physician Certification Order for Inpatient Services The services are ordered in accordance with Medicare regulations or non- Medicare payer requirements, as applicable. In the case of services not specified as inpatient-only, they are appropriately provided as inpatient services in accordance with the 2-midnight benchmark. days is the estimated time the patient will need to remain in the hospital, assuming treatment plan goals are met and no additional complications. Alverto Simon MD Sep 03, 2017 16:15
[2017-09-03] MEDS: RESP: ALBUTEROL 2.5 MG/IPRATROPIUM 0.5 MG NEB (PRN) NEB (16:42)
[2017-09-03] MEDS: MORPHINE SULFATE 2 MG/ML INJ IV PUSH PRN ×3 (16:44→23:21)
[2017-09-03] MEDS ORDERED: FUROSEMIDE 40 MG/4 ML VIAL IVP SCH (18:00)
--- NOTE | 2017-09-03 18:07 | RADRPT ---
EXAM DATE/TIME: 09/03/2017 17:04 [facility] COMPARISON: No previous studies available for comparison. INDICATIONS : Syncope. MEDICAL HISTORY : Congestive heart failure. Glasses. Dizziness. Numbness. Cardiomyopathy. Dyspnea. Diabetes. Anxiet y. Claustrophobia. SURGICAL HISTORY : Tonsillectomy. Pacemaker. Cholecystectomy. Cardiac catheterization. Tubal ligation. ENCOUNTER: Initial ACUITY: 1 day PAIN SCORE: 0/10 LOCATION: Bilateral neck PEAK SYSTOLIC VELOCITIES (cm/sec): ICA/CCA RATIO: Right: 0.8 Left: 1.1 ICA: Right: 74.2 Left: 93.0 CCA: Right: 89.9 Left: 81.8 ECA: Right: 72.9 Left: 75.4 VERTEBRAL: Right: 64.7 antegrade Left: 61.1 antegrade Elevated flow velocities and ICA/CCA ratios have been found to correlate with increased degrees of vessel stenosis, calculated as percentage of diameter relative to a normal segment of distal ICA/CCA FINDINGS: RIGHT CAROTID: No significant stenosis is visualized. The waveforms are within normal limits. LEFT CAROTID: No significant stenosis is visualized. The waveforms are within normal limits. VERTEBRAL ARTERIES: Antegrade flow is seen in both vertebral arteries. MISCELLANEOUS: None. CONCLUSION: Normal examination. Josef Giordano MD on September 03, 2017 at 18:05 Board Certified Radiologist. This report was verified electronically.
[2017-09-03] MEDS: guaiFENesin/DEXTROMETHORPHAN 200 MG/20 MG/10 ML CUP PO PRN ×2 (18:47→23:21)
[2017-09-03] MEDS: SODIUM CHLORIDE 0.9% FLUSH 10 ML FLUSH IV FLUSH SCH (22:17)
[2017-09-03] MEDS: CARVEDILOL 12.5 MG TAB PO SCH (22:17)
[2017-09-03] MEDS: HEPARIN SODIUM - SQ 10,000 UNITS/ML VIAL SQ SCH (22:18)
[2017-09-03] MEDS: BUMETANIDE INJ 1 MG/4 ML VIAL IV PUSH SCH (22:25)
[2017-09-04] VITALS (25 sets, daily range): BP systolic 112–144; BP diastolic 72–99; PULSE 69–96; RESP 18–20; TEMP 97–98.7; O2SAT 92–96
[2017-09-04] MEDS: guaiFENesin/DEXTROMETHORPHAN 200 MG/20 MG/10 ML CUP PO PRN ×4 (03:12→17:37)
[2017-09-04] MEDS: MORPHINE SULFATE 2 MG/ML INJ IV PUSH PRN ×6 (03:13→23:47)
[2017-09-04] MEDS: RESP: ALBUTEROL 2.5 MG/IPRATROPIUM 0.5 MG NEB (PRN) NEB ×2 (03:50→17:29)
[2017-09-04] MEDS: PROCHLORPERAZINE INJ 10 MG/2 ML VIAL IV PUSH PRN (04:19)
[2017-09-04] MEDS: HEPARIN SODIUM - SQ 10,000 UNITS/ML VIAL SQ SCH ×3 (04:26→22:14)
[2017-09-04 06:51] LABS: BICARBONATE 24.7 MEQ/L (21.0-32.0); POTASSIUM 3.8 MEQ/L (3.5-5.1)
[2017-09-04] MEDS: SODIUM CHLORIDE 0.9% FLUSH 10 ML FLUSH IV FLUSH SCH ×2 (08:52→22:21)
[2017-09-04] MEDS: CARVEDILOL 12.5 MG TAB PO SCH ×2 (08:53→22:13)
[2017-09-04] MEDS: BUMETANIDE INJ 1 MG/4 ML VIAL IV PUSH SCH ×2 (08:53→17:38)
--- NOTE | 2017-09-04 12:14 | HHI.PR ---
Subjective Remarks She was evaluated in follow-up for acute exacerbation of chronic heart failure Patient respiratory status is improved and her subjective sensation of breathing is improved Urine output 1530 No chest pain Objective Vitals Vital Signs Date Time Temp Pulse Resp B/P (MAP) Pulse Ox O2 Delivery O2 Flow Rate FiO2 09/04/17 06:01 78 09/04/17 05:01 80 09/04/17 04:47 18 09/04/17 04:01 82 09/04/17 03:55 93 Nasal Cannula 2.00 09/04/17 03:01 87 09/04/17 03:01 97.6 87 18 131/90 (104) 92 09/04/17 02:01 83 09/04/17 01:01 96 09/04/17 00:01 80 09/03/17 23:01 98.7 86 18 144/99 (114) 92 09/03/17 23:01 83 09/03/17 22:01 82 09/03/17 21:01 79 09/03/17 20:01 82 09/03/17 19:37 97 2.00 09/03/17 19:01 83 09/03/17 19:01 98.5 83 18 144/94 (111) 92 09/03/17 18:47 90 09/03/17 16:45 96 09/03/17 15:13 97.6 77 18 132/77 (95) 95 09/03/17 14:20 85 18 144/94 (111) 97 09/03/17 13:33 83 18 140/98 (112) 95 Room Air I/O 09/03/17 09/03/17 09/03/17 09/04/17 09/04/17 09/04/17 07:00 15:00 23:00 07:00 15:00 23:00 Intake Total 240 ml 1180 ml Output Total 500 ml 1225 ml Balance -500 ml 240 ml -45 ml Intake Oral 240 ml 1180 ml Output Urine Total 500 ml 1025 ml Emesis 200 ml # Voids 1 2 # Bowel Movements 0 0 Result Diagram: 09/03/17 0809 09/04/17 0530 Imaging Last Impressions Chest X-Ray 09/03/17 3948 Signed Impressions: Service Date/Time: Sunday, September 03, 2017 09:00 - CONCLUSION: 1. Cardiomegaly. Clear lungs. Uli Bean Jr., MD Head CT 09/03/17 0000 Signed Impressions: Service Date/Time: Sunday, September 03, 2017 08:30 - CONCLUSION: Negative noncontrast head CT. Josef Garcia MD Carotid Artery Ultrasound 09/03/17 0000 Signed Impressions: Service Date/Time: Sunday, September 03, 2017 17:04 - CONCLUSION: Normal examination. Josef Giordano MD Objective Remarks GENERAL: This is a well-nourished, well-developed patient, in no apparent distress. CARDIOVASCULAR: Regular rate and rhythm without murmurs, gallops, or rubs. RESPIRATORY: Clear to auscultation. Breath sounds equal bilaterally. No wheezes , rales, or rhonchi. GASTROINTESTINAL: Abdomen soft, non-tender, nondistended. Normal active bowel sounds MUSCULOSKELETAL: Extremities without clubbing, cyanosis, and there is +2 edema, they are dusky NEURO: Alert & Oriented x4 to person, place, time, situation. Moves all ext x4 A/P Problem List: (1) Chronic kidney disease ICD Code: N18.9 - Chronic kidney disease, unspecified Status: Chronic Plan: Patient with severe renal dysfunction which may be cardiorenal syndrome She is not oliguric and lecture lites are otherwise stable Continue to avoid nephrotoxins Follow urine output Renal consult pending (2) Cardiomyopathy ICD Code: I42.9 - Cardiomyopathy, unspecified Status: Chronic Plan: patient with cardiomyopathy Continue diuresis with Bumex and follow renal function Continue Coreg Patient with acute exacerbation of chronic systolic heart failure, elevated BNP and signs and symptoms of heart failure Cardiology consult pending With AICD Not on NORMAN inhibitor/ARB due to renal failure (3) DM (diabetes mellitus) ICD Code: E11.9 - Type 2 diabetes mellitus without complications Status: Acute (4) HTN (hypertension) ICD Code: I10 - Essential (primary) hypertension Status: Acute Plan: Continue Coreg Add hydralazine Rita Gregory MD Sep 04, 2017 12:14
[2017-09-04] MEDS: hydrALAZINE HCL 10 MG TAB PO SCH (13:00)
--- NOTE | 2017-09-04 13:09 | MB ---
cc: RUI GAO MD DATE OF CONSULTATION: 09/04/2017 REASON FOR CONSULTATION Chronic kidney disease with elevated BUN and creatinine. HISTORY OF PRESENT ILLNESS This is a 27-year-old female known to me from before with past medical history of nonischemic cardiomyopathy with very low ejection fraction, history of chronic kidney disease with advanced renal failure, hypertension, diabetes mellitus, who came to the hospital with complaint of cough and shortness of breath. I was called to see the patient because of elevated BUN and creatinine. The patient has known history of chronic kidney disease. She was admitted last month and was seen by me. At that time her creatinine was around 4 and she was discharged with a creatinine of 4.1. She was supposed to come for the follow-up but she also had an issue with compliance. Now she is saying that she was taking her medications regularly. Here it was found that her creatinine is almost the same and her swelling has improved. She has this cough and shortness of breath with whitish sputum. There is no history of fever. Denies any chest pain, no nausea or vomiting. No history of diarrhea. She has been eating well. There is no dysuria, hematuria. Denies taking any nonsteroidal anti-inflammatory drugs. Claims to be compliant with her medications. Her niece has been sick at home and also has cough and sputum. PAST MEDICAL HISTORY 1. Hypertension. 2. cardiomyopathy. 3. Diabetes mellitus. 4. Borderline chronic kidney disease with advanced renal failure. PAST SURGICAL HISTORY 1. Tubal ligation. 2. Cholecystectomy. 3. Tonsillectomy. 4. Cardiac catheterization. REVIEW OF SYSTEMS There is no history of fever. The patient has generalized weakness, feeling tired. There is no history of abdominal pain. She has this cough with shortness of breath and whitish sputum. There is no chest pain, no palpitation. No nausea, vomiting. No history of diarrhea. SOCIAL HISTORY The patient is single. She has a daughter and she lives with her parents. She has past history of smoking, stopped 5 years ago. There is no history of heavy alcoholism. FAMILY HISTORY Noncontributory. ALLERGIES She is allergic to NIACIN AND KETOROLAC. MEDICATIONS Currently she is on the following medications: 1. Bumex 1 mg IV b.i.d. 2. Apresoline 10 mg q. 12-hours. 3. Coreg 10/25 mg q. 12-hours. 4. Robitussin DM p.r.n. 5. DuoNeb nebulizer. 6. Compazine as needed. PHYSICAL EXAMINATION GENERAL: The patient is awake, alert. She is not in acute distress. VITAL SIGNS: Last blood pressure is 131/90, temperature is 97.6, oxygen saturation on 2 liters nasal cannula 93%. HEENT: Pupils are mid constricted. Nonicteric sclerae. Conjunctivae pale. NECK: Supple. JVD is not elevated. LUNGS: The patient has bilateral decreased air entry with basilar rales and scattered wheezing. HEART: S1, S2, regular rhythm. ABDOMEN: Distended, soft, lax. There is no tenderness. Bowel sounds positive. EXTREMITIES: There is mild edema in the legs. INVESTIGATION WBC count is 5.0, hemoglobin 10.7, platelet count 125, neutrophils 73.4%, sodium 137, potassium 3.8, chloride 103, bicarb 24.7, BUN 65, creatinine 4.3, calcium 7.8, AST 38, ALT is 44, BNP is 3493, total protein is 6.1, albumin is 2.4. Urinalysis during last admission showed that she has protein of 300 and 24-hour urine was showing 8.6 grams of protein. Her complement C3 was low. HAMLET, ANCA was negative. ASSESSMENT/PLAN 1. Chronic kidney disease, advanced renal failure. 2. Cough and sputum, possibly bronchitis, may be viral. 3. cardiomyopathy. 4. Borderline diabetes mellitus. 5. Mild anemia. The patient has advanced renal disease and her GFR is now 12-13. She has not been following with any labor relations specialist. I saw her recently when she was admitted last month and I discussed with her at that time also about hemodialysis and peritoneal dialysis and I discussed with her again. She wants to know more about peritoneal dialysis, so I asked the peritoneal dialysis nurse to come and discuss with her and explain to her how it is done, so if she agreed then we can proceed with peritoneal dialysis catheter placement. Thank you for the consultation. Continue the Bumex for the time being. I will follow the patient while she is in the hospital. MD PHYLLIS Valdes/TRICIA /12:27 PM /12:45 PM
--- NOTE | 2017-09-04 16:59 | ECHRPT ---
Indication: CHF CONCLUSIONS Moderately dilated left ventricle. Wall thickness is normal. The left ventricular systolic function is severely reduced with an estimated ejection fraction less than 20%. There are findings consistent with dilated cardiomyopathy. The left atrial size is moderately dilated. The right atrial size is moderately dilated. There is a pacemaker wire present in the right atrial cavity. [id number] mitral valve regurgitation. There is moderate to severe tricuspid valve regurgitation. The estimated pulmonary arterial pressure is 52 mmHg. Pacemaker wire is present within the right ventricular cavity. BP: 131 / 90 HR: 87 Rhythm: Sinus MEASUREMENTS (Male / Female) Normal Values Technical Quality:Fair 2D ECHO LV Diastolic Diameter PLAX 6.9 cm 4.2 - 5.9 / 3.9 - 5.3 cm LV Systolic Diameter PLAX 6.5 cm IVS Diastolic Thickness 0.6 cm 0.6 - 1.0 / 0.6 - 0.9 cm LVPW Diastolic Thickness 0.7 cm 0.6 - 1.0 / 0.6 - 0.9 cm LV Relative Wall Thickness 0.2 LVOT Diameter 2.1 cm Aortic Root Diameter 2.7 cm LA Systolic Diameter LX 4.2 cm 3.0 - 4.0 / 2.7 - 3.8 cm M-MODE AV Cusp Separation MM 2.0 cm DOPPLER AV Peak Velocity 120.0 cm/s AV Peak Gradient 5.8 mmHg AV Mean Gradient 3.0 mmHg AV Velocity Time Integral 21.3 cm LVOT Peak Velocity 99.3 cm/s LVOT Peak Gradient 3.9 mmHg LVOT Velocity Time Integral 17.3 cm AV Area Cont Eq vti 2.8 cm AV Area Cont Eq pk 2.9 cm Mitral E Point Velocity 115.0 cm/s Mitral A Point Velocity 65.2 cm/s Mitral E to A Ratio 1.8 LV E' Lateral Velocity 5.0 cm/s Mitral E to LV E' Lateral Ratio 23.0 LV E' Septal Velocity 3.8 cm/s Mitral E to LV E' Septal Ratio 30.1 TR Peak Velocity 324.0 cm/s TR Peak Gradient 42.0 mmHg Right Atrial Pressure 10.0 mmHg Pulmonary Artery Systolic Pressu 52.0 mmHg Right Ventricular Systolic Press 52.0 mmHg PV Peak Velocity 54.1 cm/s PV Peak Gradient 1.2 mmHg FINDINGS LEFT VENTRICLE Moderately dilated left ventricle. Wall thickness is normal. The left ventricular systolic function is severely reduced with an estimated ejection fraction less than 20%. There are findings consistent with dilated cardiomyopathy. RIGHT VENTRICLE Normal right ventricular size and systolic function. LEFT ATRIUM The left atrial size is moderately dilated. RIGHT ATRIUM The right atrial size is moderately dilated. There is a pacemaker wire present in the right atrial cavity. ATRIAL SEPTUM Normal atrial septal thickness without atrial level shunting by limited color doppler interrogation. AORTA The aortic root and proximal ascending aorta are normal in size on limited imaging. MITRAL VALVE [id number] mitral valve regurgitation. AORTIC VALVE Trileaflet aortic valve. No aortic valve stenosis or regurgitation. TRICUSPID VALVE There is moderate to severe tricuspid valve regurgitation. The estimated pulmonary arterial pressure is 52 mmHg. Pacemaker wire is present within the right ventricular cavity. PULMONARY VALVE No pulmonary valve regurgitation or stenosis. VESSELS The inferior vena cava is normal in size. PERICARDIUM No pericardial effusion. Naveen Elias MD (Electronically Signed) Final Date:04 September 2017 16:58
[2017-09-05] VITALS (24 sets, daily range): BP systolic 109–144; BP diastolic 77–95; PULSE 70–103; RESP 18–20; TEMP 97–99.6; O2SAT 92–99
[2017-09-05] MEDS: RESP: ALBUTEROL 2.5 MG/IPRATROPIUM 0.5 MG NEB (PRN) NEB ×4 (01:04→17:51)
[2017-09-05] MEDS: hydrALAZINE HCL 10 MG TAB PO SCH (02:14)
[2017-09-05] MEDS: guaiFENesin/DEXTROMETHORPHAN 200 MG/20 MG/10 ML CUP PO PRN ×5 (03:19→20:41)
[2017-09-05] MEDS: MORPHINE SULFATE 2 MG/ML INJ IV PUSH PRN ×5 (03:20→20:41)
[2017-09-05] MEDS: HEPARIN SODIUM - SQ 10,000 UNITS/ML VIAL SQ SCH ×2 (06:13→19:10)
[2017-09-05 07:35] LABS: BICARBONATE 26.9 MEQ/L (21.0-32.0); POTASSIUM 3.4 MEQ/L (3.5-5.1)
[2017-09-05] MEDS: CARVEDILOL 12.5 MG TAB PO SCH ×2 (08:16→20:42)
[2017-09-05] MEDS: BUMETANIDE INJ 1 MG/4 ML VIAL IV PUSH SCH ×2 (08:17→19:06)
[2017-09-05] MEDS: SODIUM CHLORIDE 0.9% FLUSH 10 ML FLUSH IV FLUSH SCH ×2 (08:18→20:42)
--- NOTE | 2017-09-05 11:25 | HHI.PR ---
Subjective Remarks Coughing Objective Vital Signs Date Time Temp Pulse Resp B/P (MAP) Pulse Ox O2 Delivery O2 Flow Rate FiO2 09/05/17 09:00 74 09/05/17 08:00 72 09/05/17 07:15 98.2 77 20 109/79 (89) 93 09/05/17 07:15 72 09/05/17 04:00 97.0 71 20 113/77 (89) 94 09/05/17 04:00 70 09/05/17 03:25 18 09/05/17 03:00 70 09/05/17 02:00 80 09/05/17 01:06 92 09/05/17 01:00 72 09/05/17 00:00 97.5 81 18 120/85 (97) 99 09/05/17 00:00 79 09/04/17 23:00 74 09/04/17 22:00 74 09/04/17 21:00 74 09/04/17 20:00 72 09/04/17 20:00 98.3 79 18 131/82 (98) 96 09/04/17 19:00 74 09/04/17 18:11 79 09/04/17 17:00 81 09/04/17 16:00 84 09/04/17 15:00 97.0 69 18 112/72 (85) 94 09/04/17 15:00 78 09/04/17 14:00 79 09/04/17 13:00 78 09/04/17 12:00 80 I/O 09/04/17 09/04/17 09/04/17 09/05/17 09/05/17 09/05/17 07:00 15:00 23:00 07:00 15:00 23:00 Intake Total 1180 ml 800 ml 900 ml Output Total 1225 ml 950 ml 550 ml Balance -45 ml -150 ml 350 ml Intake Oral 1180 ml 800 ml 900 ml Output Urine Total 1025 ml 950 ml 550 ml Emesis 200 ml # Bowel Movements 0 0 0 Result Diagram: 09/03/17 0809 09/05/17 0550 Imaging Alert, fully oriented, in bed Lungs: ventilated Heart: S1, S2 regular Abdomen: soft, no mass Ext: no edema Last Impressions Chest X-Ray 09/03/17 0755 Signed Impressions: Service Date/Time: Sunday, September 03, 2017 09:00 - CONCLUSION: 1. Cardiomegaly. Clear lungs. Uli Bean Jr., MD Head CT 09/03/17 0000 Signed Impressions: Service Date/Time: Sunday, September 03, 2017 08:30 - CONCLUSION: Negative noncontrast head CT. Josef Garcia MD Carotid Artery Ultrasound 09/03/17 0000 Signed Impressions: Service Date/Time: Sunday, September 03, 2017 17:04 - CONCLUSION: Normal examination. Josef Giordano MD Current Medications Medications (Trade) Dose Ordered Sig/Arnold Route Start Time Stop Time Status Last Admin (NS Flush) 2 ml UNSCH PRN IVF 09/03/17 08:00 09/03/17 09:46 (NS Flush) 2 ml BID IV FLUSH 09/03/17 21:00 09/05/17 08:18 (NS Flush) 2 ml UNSCH PRN IV FLUSH 09/03/17 11:30 (Coreg) 25 mg Q12HR PO 09/03/17 21:00 09/05/17 08:16 (Morphine Inj) 2 mg Q3H PRN IV PUSH 09/03/17 16:00 09/05/17 03:20 (Bumex Inj) 1 mg BID@,18 IV PUSH 09/03/17 21:00 09/05/17 08:17 (Robitussin Dm 200-20 Mg/10 ml Liq) 10 ml Q4H PRN PO 09/03/17 16:15 09/05/17 08:16 (Duoneb Neb) 1 ampule Q4HR NEB PRN NEB 09/03/17 16:30 09/05/17 05:14 (Heparin Inj) 5,000 units Q8HR SQ 09/03/17 22:00 09/05/17 06:13 (Compazine Inj) 5 mg Q6H PRN IV PUSH 09/03/17 20:15 09/04/17 04:19 (Apresoline) 10 mg Q12H PO 09/04/17 13:00 09/05/17 02:14 Assessment and Plan Problem List: (1) Chronic kidney disease ICD Codes: N18.9 - Chronic kidney disease, unspecified Status: Chronic Plan: Creat over 4.3. There is discussion with nephrology about dialysis Patient prefers to go on hemodialysis for now. (2) HTN (hypertension) ICD Codes: I10 - Essential (primary) hypertension Status: Acute Plan: SBP 112 (3) Systolic CHF, acute on chronic ICD Codes: I50.23 - Acute on chronic systolic (congestive) heart failure Status: Acute Plan: CHF III. No sign of fluid overload. Will need entresto. Waiting for nephrology to confirm dialysis. Once agree on, entresto will be initiated. Case discussed with patient and her mother. Pulmonary will be also consulted for evaluation. Patient was referred previously for transplant evaluation. Has no transportation That affected her compliance and eligibility. Leona Cardoso MD Sep 05, 2017 11:25
--- NOTE | 2017-09-05 11:36 | HHI.PR ---
Subjective Remarks Patient seen and evaluated in follow-up for congestive heart failure and for individual renal disease Poor adherence to the past Cardiology and nephrology consult appreciated Objective Vitals Vital Signs Date Time Temp Pulse Resp B/P (MAP) Pulse Ox O2 Delivery O2 Flow Rate FiO2 09/05/17 09:00 74 09/05/17 08:00 72 09/05/17 07:15 98.2 77 20 109/79 (89) 93 09/05/17 07:15 72 09/05/17 04:00 97.0 71 20 113/77 (89) 94 09/05/17 04:00 70 09/05/17 03:25 18 09/05/17 03:00 70 09/05/17 02:00 80 09/05/17 01:06 92 09/05/17 01:00 72 09/05/17 00:00 97.5 81 18 120/85 (97) 99 09/05/17 00:00 79 09/04/17 23:00 74 09/04/17 22:00 74 09/04/17 21:00 74 09/04/17 20:00 72 09/04/17 20:00 98.3 79 18 131/82 (98) 96 09/04/17 19:00 74 09/04/17 18:11 79 09/04/17 17:00 81 09/04/17 16:00 84 09/04/17 15:00 97.0 69 18 112/72 (85) 94 09/04/17 15:00 78 09/04/17 14:00 79 09/04/17 13:00 78 09/04/17 12:00 80 I/O 09/04/17 09/04/17 09/04/17 09/05/17 09/05/17 09/05/17 07:00 15:00 23:00 07:00 15:00 23:00 Intake Total 1180 ml 800 ml 900 ml Output Total 1225 ml 950 ml 550 ml Balance -45 ml -150 ml 350 ml Intake Oral 1180 ml 800 ml 900 ml Output Urine Total 1025 ml 950 ml 550 ml Emesis 200 ml # Bowel Movements 0 0 0 Result Diagram: 09/03/17 0809 09/05/17 0550 Objective Remarks GENERAL: This is a well-nourished, well-developed patient, in no apparent distress. CARDIOVASCULAR: Regular rate and rhythm without murmurs, gallops, or rubs. RESPIRATORY: Clear to auscultation. Breath sounds equal bilaterally. No wheezes , rales, or rhonchi. GASTROINTESTINAL: Abdomen soft, non-tender, nondistended. Normal active bowel sounds MUSCULOSKELETAL: Extremities without clubbing, cyanosis, and there is +2 edema, they are dusky NEURO: Alert & Oriented x4 to person, place, time, situation. Moves all ext x4 A/P Problem List: (1) Chronic kidney disease ICD Code: N18.9 - Chronic kidney disease, unspecified Status: Chronic Plan: Patient with severe renal dysfunction/ESRD which may be cardiorenal syndrome She is not oliguric and electrolytes are otherwise stable Continue to avoid nephrotoxins Follow urine output Renal consult recommending renal replacement therapy with possible peritoneal dialysis (2) Cardiomyopathy ICD Code: I42.9 - Cardiomyopathy, unspecified Status: Chronic Plan: patient with cardiomyopathy Continue Bumex and follow renal function, urine output adequate at 1500 mL daily Continue Coreg, recommending entrust oh per cardiology With defibrillator (3) DM (diabetes mellitus) ICD Code: E11.9 - Type 2 diabetes mellitus without complications Status: Acute Plan: Hemoglobin A1c 5.6 in May Continue diet control and follow clinically (4) HTN (hypertension) ICD Code: I10 - Essential (primary) hypertension Status: Acute Plan: Continue Coreg ranjana / hydralazine prn may need entresto per Rita Tavarez MD Sep 05, 2017 11:36
--- NOTE | 2017-09-05 12:05 | MB ---
cc: RUI GAO MD, HANSCY M.D. DATE OF CONSULTATION September 04, 2017 REASON FOR CONSULTATION Heart failure. HISTORY OF PRESENT ILLNESS Mrs. Jones is a 27-year-old female with known ischemic cardiomyopathy, cardiomyopathy, poor compliance, renal failure, recent hospitalization due to uncompensated heart failure. She was put on milrinone during hospitalizations and subsequently was discharged home. She was admitted due to shortness of breath. BNP was close to 3500. I discussed the case with the emergency room doctor. Decision for hospitalization was taken. The chart was reviewed. The patient was evaluated. ALLERGIES KETOROLAC. ASPIRIN. SOCIAL HISTORY Denies smoking and drinking. FAMILY HISTORY Noncontributory to her current medical condition. MEDICATIONS 1. Albuterol. 2. Bumex. 3. Coreg. 4. Heparin subcu. 5. Apresoline. REVIEW OF SYSTEMS Currently the patient refers no chest pain, some shortness of breath and coughing. No fever. PHYSICAL EXAMINATION GENERAL: Alert, fully oriented. VITAL SIGNS: Blood pressure on evaluation yesterday was 112/72, pulse 78, respiratory rate around 20. LUNGS: Ventilated. There is left basilar crackle. CARDIOVASCULAR: S1-S2, no gallop, no murmur. ABDOMEN: Soft. No mass. EXTREMITIES: No edema. ELECTROCARDIOGRAM Sinus rhythm, diffuse ST changes, intraventricular conduction delay. LABORATORY DATA Hemoglobin 10.7, white blood cell 5.0. Potassium 3.8, creatinine 4.39, glucose 185. BNP the day before was close to 3500. ASSESSMENT AND RECOMMENDATIONS Ms. Jones does not appear to be in acute congestive heart failure. Her creatinine clearance is getting worse. Her BNP is high. She has a APAP Mr. Is high. There was no clear sign of fluid overload and she is voiding. Blood pressure is adequate. NORMAN inhibitor was discontinued as well as Entresto. The patient cannot afford Entresto either, was discontinued because of the creatinine. Apparently she was on dialysis for a couple of months in the past. She had a long conversation with Dr. Gao. Apparently they will initiate hemodialysis. I will keep her on their diuretic right now. When hemodialysis is initiated, we attempt again Entresto. I am waiting for further decision with Nephrology. Ejection fraction is around 20%. She is coughing. There is yellow sputum. She will need a pulmonary evaluation. Case extensively discussed with her. I will closely monitor her during hospitalization. MD FRED Clements/EVELIO /11:22 AM /11:56 AM
[2017-09-05] MEDS ORDERED: hydrALAZINE HCL 10 MG TAB PO PRN (13:00)
[2017-09-05] MEDS: SODIUM CHLORIDE 0.9% FLUSH 10 ML FLUSH IV FLUSH PRN (15:55)
[2017-09-05] MEDS ORDERED: POTASSIUM CHLORIDE 10 MEQ CONTROLLED RELEASE TAB PO ONE (17:15)
[2017-09-05] MEDS ORDERED: SODIUM CHLOR 0.9% 1000 ML INJ 1,000 ML OTHER PRN ×2 (18:43)
[2017-09-05] MEDS ORDERED: SODIUM CHLOR 0.9% 1000 ML INJ 1,000 ML IV PRN (18:43)
--- NOTE | 2017-09-05 18:43 | HHI.NPPN ---
Subjective History of Present Illness 27-year-old female known to me from before with past medical history of nonischemic cardiomyopathy with very low ejection fraction, history of chronic kidney disease with advanced renal failure, hypertension, diabetes mellitus, who came to the hospital with complaint of cough and shortness of breath. I was called to see the patient because of elevated BUN and creatinine. The patient has known history of chronic kidney disease. Additional Remarks Patient is alert, has cough and sputum with SOB and decrease appetite. Review of Systems General Constitutional: Fatigue Respiratory Lungs: SOB, Cough, Sputum, Wheeze Cardiovascular Cardiac: CONNORS Objective Data Data Vital Signs Date Time Temp Pulse Resp B/P (MAP) Pulse Ox O2 Delivery O2 Flow Rate FiO2 09/05/17 17:52 98 21 09/05/17 17:00 84 09/05/17 16:00 90 09/05/17 15:00 98.3 81 18 124/88 (100) 96 09/05/17 15:00 82 09/05/17 14:00 80 09/05/17 13:00 76 09/05/17 12:00 78 09/05/17 11:00 98.4 78 18 136/87 (103) 96 09/05/17 11:00 79 09/05/17 10:00 76 09/05/17 09:00 74 09/05/17 08:00 72 09/05/17 07:15 98.2 77 20 109/79 (89) 93 09/05/17 07:15 72 09/05/17 04:00 97.0 71 20 113/77 (89) 94 09/05/17 04:00 70 09/05/17 03:25 18 09/05/17 03:00 70 09/05/17 02:00 80 09/05/17 01:06 92 09/05/17 01:00 72 09/05/17 00:00 97.5 81 18 120/85 (97) 99 09/05/17 00:00 79 09/04/17 23:00 74 09/04/17 22:00 74 09/04/17 21:00 74 09/04/17 20:00 72 09/04/17 20:00 98.3 79 18 131/82 (98) 96 09/04/17 19:00 74 -: 09/03/17 0809 09/05/17 0550 Physical Exam General Appearance: No Acute Distress, Comfortable Eyes Eye Exam: Pupils Equal Throat Throat Exam: Oral Mucosa [place] & Moist Neck Neck Exam: Neck Supple Pulmonary Resp Exam: No Distress, Rhonchi, Sputum, Decreased Bases, Diminished Breath Sounds Cardiology CV Exam: Regular, Normal Sinus Rhythm Gastrointestinal/Abdomen GI Exam: Soft, Non-Tender, Bowel Sounds Present Extremeties Extremities Exam: Trace Edema Neurologic Neuro Exam: Alert, Awake, Oriented Psychiatric Psych Exam: Appropriate Responses Assessment/Plan Assessment Summary: CHF, Hypertension, CKD Stage V Problem List: (1) Proteinuria ICD Codes: R80.9 - Proteinuria, unspecified Status: Acute (2) Volume overload ICD Codes: E87.70 - Fluid overload, unspecified Status: Chronic (3) Diabetes type 2, controlled ICD Codes: E11.9 - Type 2 diabetes mellitus without complications Status: Chronic (4) HTN (hypertension) ICD Codes: I10 - Essential (primary) hypertension Status: Acute (5) Systolic CHF, chronic ICD Codes: I50.22 - Chronic systolic (congestive) heart failure Status: Acute (6) Stage 4 chronic kidney disease ICD Codes: N18.4 - Chronic kidney disease, stage 4 (severe) Status: Chronic Plan Patient has advance stage 4 chronic kidney disease, approaching stage5. She has symptoms of uremia, including decrease appetite, tiredness. Evaluated by PD nurse, not suitable for PD due to home condition. Will need to start on HD. Discussed with the patient. She agreed for PermCath and AVF. Start HD tomorrow. Jeromy Allen MD Sep 05, 2017 18:43
[2017-09-05] MEDS ORDERED: diphenhydrAMINE HCL 25 MG CAP PO PRN (18:45)
[2017-09-05] MEDS ORDERED: HEPARIN SODIUM - IV 10,000 UNITS/10 ML VIAL IV FLUSH PRN (18:45)
[2017-09-05] MEDS ORDERED: ALBUMIN 25% INJ 100 ML IV PRN (18:45)
[2017-09-05] MEDS ORDERED: NITROGLYCERIN 0.4 MG SL 25 TABS/BTL SL PRN (18:45)
[2017-09-05] MEDS ORDERED: GELATIN 12 MM/7 MM FOAM TOP PRN (18:45)
[2017-09-05] MEDS ORDERED: SODIUM CHLORIDE 0.9% FLUSH 10 ML FLUSH IV FLUSH PRN (18:45)
[2017-09-05] MEDS ORDERED: ACETAMINOPHEN 325 MG TAB PO PRN (18:45)
[2017-09-05] MEDS ORDERED: ONDANSETRON HCL 4 MG/2 ML VIAL IV PUSH PRN (18:45)
[2017-09-05] MEDS ORDERED: MANNITOL 12.5 GM/50 ML VIAL IV PRN (18:45)
[2017-09-05] MEDS ORDERED: cloNIDine HCL 0.1 MG TAB PO PRN (18:45)
[2017-09-05] MEDS ORDERED: methylPREDNISolone SOD SUCC 40 MG/1 ML VIAL IV SCH (19:00)
[2017-09-05] MEDS: AZITHROMYCIN INJ 250 MG in SODIUM CHLOR 0.9% 250 ML INJ 250 ML IV SCH (20:00)
[2017-09-05] MEDS: methylPREDNISolone SOD SUCC 40 MG/1 ML VIAL IV SCH (20:41)
[2017-09-05] MEDS: cefTRIAXone INJ 1,000 MG in SODIUM CHLORIDE 0.9% INJ 100 ML IV SCH (21:00)
--- NOTE | 2017-09-05 21:47 | MB ---
cc: XU LIANG MD, JOHN DATE OF CONSULTATION: 09/05/2017 REASON FOR CONSULTATION Respiratory insufficiency and bronchitis. HISTORY OF PRESENT ILLNESS This is a 27-year-old white female who was admitted with complaints of shortness of breath, cough, chest congestion and a yellow-green expectoration for the past one-to-two weeks. The patient has been coughing persistently and also has some pleuritic chest pain and has had a history for cardiomyopathy and was admitted for the possibility of bronchitis and/or pneumonia. This patient also has a history of chronic kidney disease stage IV and is being prepared for possible dialysis shortly and will have an AV fistula placed this month. She had some syncopal episodes earlier this past week but denied any severe chest pains, fevers or chills. PAST HISTORY Past history includes - 1. History of cardiomyopathy, being evaluated for transplant. 2. Diabetes mellitus. 3. Hypertension. 4. History of AICD placement. 5. History of chronic kidney disease stage IV. 6. in the past. 7. Tubal ligation. 8. Cholecystectomy 9. Tonsillectomy and 10. Coronary angiography. ALLERGIES NIACIN. HABITS The patient smoked half-pack per day for about six years and smoked marijuana for over 10 years since age 14. No significant alcohol use. FAMILY HISTORY Family history is significant for rheumatoid arthritis in her mother. REVIEW OF SYSTEMS The patient has gained weight. She has dizziness and near syncopal episodes. She has shortness of breath, wheezing and cough. She has epigastric distress and nausea. She has no leg or calf muscle pain but has had some leg swelling. She has depression and anxiety. No urinary symptoms. PHYSICAL EXAMINATION GENERAL: This averagely built, young, white female is alert and anxious. VITAL SIGNS: Blood pressure 130/70, pulse 80, respirations 22, temperature 97.5. HEENT: Head normocephalic. Pupils are reactive and equal. Tongue is moist. Throat is injected. Nasal mucosa is clear. NECK: Supple. No bruits. No venous distension. No thyromegaly. CHEST: Distant breath sounds with expiratory wheezes bilaterally. There are no crackles on either side. HEART: Heart sounds are regular. S1 and S2. No murmur. ABDOMEN: Soft, protuberant with mild epigastric tenderness. No organomegaly. EXTREMITIES: Minimal edema. Pigmentation of the skin of the lower extremities. No calf tenderness. NEUROLOGIC: Reflexes are 1+ with no gross motor or sensory deficits. Cranial nerves grossly intact. RECTAL: Exam is deferred. IMPRESSION 1. Acute bronchitis with possible early pneumonia. 2. cardiomyopathy. 3. Chronic kidney disease stage IV. 4. Diabetes mellitus. 5. Hypertension. PLAN 1. The patient will be started on nebulized DuoNeb solution q.i.d. 2. We will get bedside pulmonary function studies. 3. Send a sputum for culture and Gram stain. 4. She was also placed on Zithromax 250 mg IV daily and Rocephin 1 gram. 5. CBC to be repeated. 6. O2 supplementation as needed 1-3 liters to keep sats over 92. 7. Urine sent for Legionella and pneumococcal antigens. Thank you Dr. Liang for this consultation. Josef Nguyen MD JELVA/ZONIA /7:27 PM /9:24 PM
--- NOTE | 2017-09-05 23:40 | RADRPT ---
EXAM DATE/TIME: 09/05/2017 22:22 [facility] COMPARISON: US ARM LEFT VENOUS DOPPLER, September 05, 2017, 22:12. INDICATIONS : AV fistula placement. MEDICAL HISTORY : . Renal failure, chronic. Congestive heart failure. Migraines. Neuropathy. Cardiomyopathy. D iabets. Anxiety. Blood transfusion. SURGICAL HISTORY : Tonsillectomy. Tubal ligation. Cholecystectomy. section. Internal defibrillator. ENCOUNTER: Initial ACUITY: 1 day PAIN SCORE: 0/10 LOCATION: Left arm. CEPHALIC: ORIGIN: 1 mm MID-ARM: Non-visualized ELBOW: Non-visualized BASILIC: ORIGIN: 5 mm MID-ARM: 4 mm ELBOW: 4 mm ARTERIES: BRACHIAL: 3 mm ULNAR: 3 mm RADIAL: 3 mm VEINS: RADIAL: 1 mm ULNAR: 1 mm FINDINGS: The venous system of the upper extremity is patent by color Doppler imaging. Measurements of the arm veins (in mm) are listed above. CONCLUSION: Upper extremity venous mapping as above. Uli Lord MD on September 05, 2017 at 23:26 Board Certified Radiologist. This report was verified electronically.
--- NOTE | 2017-09-05 23:47 | RADRPT ---
EXAM DATE/TIME: 09/05/2017 22:12 [facility] COMPARISON: US ARM LEFT VENOUS DOPPLER, July 22, 2016, 17:00. INDICATIONS : AV fistula placement. MEDICAL HISTORY : Congestive heart failure. Renal failure, chronic. . Migraines. Neuropathy. Cardiomyopathy. D iabets. Anxiety. Blood transfusion. SURGICAL HISTORY : Tonsillectomy. Cholecystectomy. Tubal ligation. section. Internal defibrillator. ENCOUNTER: Initial ACUITY: 1 day PAIN SCORE: 0/10 LOCATION: Left arm. FINDINGS: There is spontaneous flow documented in the brachial, basilic, axillary, and subclavian veins. The v essels are compressible and augmentation response is documented. No filling defects are seen. The f low is phasic with respiration. Direction of flow in the jugular vein is caudal. The cephalic vein is not identified. CONCLUSION: No evidence of deep venous thrombosis left upper extremity. Uli Lord MD on September 05, 2017 at 23:43 Board Certified Radiologist. This report was verified electronically.
[2017-09-06] VITALS (19 sets, daily range): BP systolic 115–144; BP diastolic 71–89; PULSE 75–100; RESP 16–18; TEMP 97.4–99.1; O2SAT 94–97
[2017-09-06] MEDS: RESP: ALBUTEROL 2.5 MG/IPRATROPIUM 0.5 MG NEB (PRN) NEB (00:33)
[2017-09-06] MEDS: guaiFENesin/DEXTROMETHORPHAN 200 MG/20 MG/10 ML CUP PO PRN ×5 (01:05→21:58)
[2017-09-06] MEDS: MORPHINE SULFATE 2 MG/ML INJ IV PUSH PRN ×6 (01:05→21:25)
[2017-09-06] MEDS: methylPREDNISolone SOD SUCC 40 MG/1 ML VIAL IV SCH ×3 (04:27→20:07)
[2017-09-06] MEDS: HEPARIN SODIUM - SQ 10,000 UNITS/ML VIAL SQ SCH ×2 (05:20→17:27)
[2017-09-06 07:26] LABS: BICARBONATE 23.1 MEQ/L (21.0-32.0); POTASSIUM 4.4 MEQ/L (3.5-5.1)
--- NOTE | 2017-09-06 08:21 | HHI.PR ---
Subjective Remarks Feeling better Objective Vital Signs Date Time Temp Pulse Resp B/P (MAP) Pulse Ox O2 Delivery O2 Flow Rate FiO2 09/06/17 06:00 90 09/06/17 05:00 75 09/06/17 04:00 82 09/06/17 03:00 77 09/06/17 03:00 97.7 81 18 133/89 (104) 96 09/06/17 02:00 82 09/06/17 01:00 81 09/06/17 00:30 96 09/06/17 00:00 80 09/05/17 23:00 98.5 90 18 141/95 (110) 95 09/05/17 23:00 90 09/05/17 22:00 82 09/05/17 21:00 84 09/05/17 20:00 99.6 92 18 144/95 (111) 95 09/05/17 20:00 84 09/05/17 19:00 103 09/05/17 18:00 84 09/05/17 17:52 98 21 09/05/17 17:00 84 09/05/17 16:00 90 09/05/17 15:00 98.3 81 18 124/88 (100) 96 09/05/17 15:00 82 09/05/17 14:00 80 09/05/17 13:00 76 09/05/17 12:00 78 09/05/17 11:00 98.4 78 18 136/87 (103) 96 09/05/17 11:00 79 09/05/17 10:00 76 09/05/17 09:00 74 I/O 09/05/17 09/05/17 09/05/17 09/06/17 09/06/17 09/06/17 07:00 15:00 23:00 07:00 15:00 23:00 Intake Total 900 ml 850 ml 400 ml Output Total 550 ml 750 ml 600 ml Balance 350 ml 100 ml -200 ml Intake Oral 900 ml 850 ml 400 ml Output Urine Total 550 ml 750 ml 600 ml # Bowel Movements 0 0 Result Diagram: 09/03/17 0809 09/06/17 0547 Imaging Alert, fully oriented, not coughing Lungs: ventilated Heart: S1, S2 regular, no gallop Abdomen: soft, no mass Ext: no edema Last Impressions Upper Extremity Ultrasound 09/05/17 0000 Signed Impressions: Service Date/Time: August 22:12 - CONCLUSION: No evidence of deep venous thrombosis left upper extremity. Uli Lord MD Chest X-Ray 09/03/17 0757 Signed Impressions: Service Date/Time: Sunday, September 03, 2017 09:00 - CONCLUSION: 1. Cardiomegaly. Clear lungs. Uli Bean Jr., MD Head CT 09/03/17 0000 Signed Impressions: Service Date/Time: Sunday, September 03, 2017 08:30 - CONCLUSION: Negative noncontrast head CT. Josef Garcia MD Carotid Artery Ultrasound 09/03/17 0000 Signed Impressions: Service Date/Time: Sunday, September 03, 2017 17:04 - CONCLUSION: Normal examination. Josef Giordano MD Current Medications Medications (Trade) Dose Ordered Sig/Arnold Route Start Time Stop Time Status Last Admin (NS Flush) 2 ml UNSCH PRN IVF 09/03/17 08:00 09/03/17 09:46 (NS Flush) 2 ml BID IV FLUSH 09/03/17 21:00 09/05/17 20:42 (NS Flush) 2 ml UNSCH PRN IV FLUSH 09/03/17 11:30 09/05/17 15:55 (Coreg) 25 mg Q12HR PO 09/03/17 21:00 09/05/17 20:42 (Morphine Inj) 2 mg Q3H PRN IV PUSH 09/03/17 16:00 09/06/17 05:20 (Bumex Inj) 1 mg BID@,18 IV PUSH 09/03/17 21:00 09/05/17 19:06 (Robitussin Dm 200-20 Mg/10 ml Liq) 10 ml Q4H PRN PO 09/03/17 16:15 09/06/17 05:20 (Duoneb Neb) 1 ampule Q4HR NEB PRN NEB 09/03/17 16:30 09/06/17 00:33 (Compazine Inj) 5 mg Q6H PRN IV PUSH 09/03/17 20:15 09/04/17 04:19 (Heparin Inj) 5,000 units Q12H SQ 09/05/17 18:00 09/06/17 05:20 (Apresoline) 10 mg Q12H PRN PO 09/05/17 13:00 Sodium Chloride 1,000 ml @ 0 mls/hr Q0M PRN OTHER 09/05/17 18:43 (Heparin Inj) 8,000 units UNSCH PRN IV FLUSH 09/05/17 18:45 Sodium Chloride 1,000 ml @ 200 mls/hr Q5H PRN IV 09/05/17 18:43 Sodium Chloride 1,000 ml @ 0 mls/hr Q0M PRN OTHER 09/05/17 18:43 (Mannitol Inj) 12.5 gm UNSCH PRN IV 09/05/17 18:45 Albumin Human 100 ml @ 60 mls/hr UNSCH PRN IV 09/05/17 18:45 (NS Flush) 5 ml UNSCH PRN IV FLUSH 09/05/17 18:45 (Heparin Inj) UNSCH PRN .XX 09/05/17 18:45 (Gentamicin (Dialysis) Inj) 20 mg UNSCH PRN OTHER 09/05/17 18:45 (Zofran Inj) 4 mg UNSCH PRN IV PUSH 09/05/17 18:45 09/05/17 22:39 (Tylenol) 650 mg UNSCH PRN PO 09/05/17 18:45 (Benadryl) 25 mg UNSCH PRN PO 09/05/17 18:45 (Nitrostat Sl) 0.4 mg UNSCH PRN SL 09/05/17 18:45 (Catapres) 0.1 mg UNSCH PRN PO 09/05/17 18:45 (Epogen Inj) 4,000 units UNSCH PRN IV PUSH 09/05/17 18:45 (Gelfoam 12 Mm/7 Mm Top) 1 foam UNSCH PRN TOP 09/05/17 18:45 Azithromycin 250 mg/Sodium Chloride 250 ml @ 250 mls/hr Q24H IV 09/05/17 20:00 09/05/17 20:00 (SoluMEDROL INJ) 40 mg Q8H IV 09/05/17 20:00 09/06/17 04:27 Ceftriaxone Sodium 1000 mg/ Sodium Chloride 100 ml @ 200 mls/hr Q24H IV 09/05/17 21:00 09/05/17 21:00 Assessment and Plan Problem List: (1) Chronic kidney disease ICD Codes: N18.9 - Chronic kidney disease, unspecified Status: Chronic Plan: HD schedule for today. (2) HTN (hypertension) ICD Codes: I10 - Essential (primary) hypertension Status: Acute Plan: SBP 133 (3) Systolic CHF, acute on chronic ICD Codes: I50.23 - Acute on chronic systolic (congestive) heart failure Status: Acute Plan: Patient going to be on hemodialysis Entrestro will be reinitiated Doing better Renal insufficiency most likely a byproduct of low renal perfusion. Leona Cardoso MD Sep 06, 2017 08:21
[2017-09-06] MEDS: SACUBITRIL/VALSARTAN 49 MG-51 MG TAB PO SCH ×2 (09:15→20:07)
[2017-09-06] MEDS: CARVEDILOL 12.5 MG TAB PO SCH ×2 (09:15→20:07)
[2017-09-06] MEDS: SODIUM CHLORIDE 0.9% FLUSH 10 ML FLUSH IV FLUSH SCH ×2 (09:16→20:07)
[2017-09-06] MEDS: BUMETANIDE INJ 1 MG/4 ML VIAL IV PUSH SCH ×2 (09:16→17:25)
--- NOTE | 2017-09-06 09:27 | PD.VS.CON ---
History of Present Illness Chief Complaint: AVF Evaluation Consult Requested by: Dr. Allen History of Present Illness Ms. Jones is a 27yo female with a past medical history of nonischemic cardiomyopathy (2012) hypertension, diabetes mellitus and chronic kidney disease with advanced renal failure Pt recently c/o cough and SOB on exertion (Nita Kennedy) Past/Family/Social History Past Medical History HTN DM cardiomyopathy on transplant eval Renal Failure Past Surgical History Coronary Angiogram AICD C- section Tubal ligation Cholecystectomy Tonsillectomy Social History NEG- Smoking - quit smoking 5 yrs ago Admits to occasional marijuana NEG- ETOH (Nita Kennedy) Home Medications Active Scripts Carvedilol (Coreg) 12.5 Mg Tab, 25 MG PO Q12HR for CMP, #120 TAB Prov:Lew Damon MD 02/28/17 Reported Medications Acetaminophen (Tylenol) 325 Mg Tab, 650 MG PO Q4H Y for FEVER, TAB 0 Refills 09/03/17 Bumetanide (Bumetanide) 2 Mg Tab, 4 MG PO BID, TAB 0 Refills 07/26/17 Discontinued Scripts Tramadol (Ultram) 50 Mg Tab, 100 MG PO Q4H Y for pain, #28 TAB Prov:Micha Jorge MD 08/16/17 Albuterol 18 GM Inh (Ventolin Hfa 18 GM Inh) 90 Mcg/Act Aer, 2 PUFF INH Q6HR for Breathing Treatment, #1 INHALER Prov:Micha Jorge MD 08/16/17 Levofloxacin (Levaquin) 750 Mg Tablet, 750 MG PO Q48H for Infection, #3 TAB Prov:Micha Jorge MD 08/16/17 Coded Allergies: niacin (Verified Allergy, Intermediate, 09/03/17) PT STATES SHE FEELS SHAKY AND SWEATY ketorolac (Unverified Adverse Reaction, Mild, SHAKING, 09/03/17) Physical Exam Vitals/I&O Date Time Temp Pulse Resp B/P (MAP) Pulse Ox O2 Delivery O2 Flow Rate FiO2 09/06/17 08:00 84 09/06/17 07:00 97.4 92 16 115/71 (86) 96 09/06/17 07:00 88 09/06/17 06:00 90 09/06/17 05:00 75 09/06/17 04:00 82 09/06/17 03:00 77 09/06/17 03:00 97.7 81 18 133/89 (104) 96 09/06/17 02:00 82 09/06/17 01:00 81 09/06/17 00:30 96 09/06/17 00:00 80 09/05/17 23:00 98.5 90 18 141/95 (110) 95 09/05/17 23:00 90 09/05/17 22:00 82 09/05/17 21:00 84 09/05/17 20:00 99.6 92 18 144/95 (111) 95 09/05/17 20:00 84 09/05/17 19:00 103 09/05/17 18:00 84 09/05/17 17:52 98 21 09/05/17 17:00 84 09/05/17 16:00 90 09/05/17 15:00 98.3 81 18 124/88 (100) 96 09/05/17 15:00 82 09/05/17 14:00 80 09/05/17 13:00 76 09/05/17 12:00 78 09/05/17 11:00 98.4 78 18 136/87 (103) 96 09/05/17 11:00 79 09/05/17 10:00 76 09/06/17 09/06/17 09/06/17 07:00 15:00 23:00 Intake Total 400 ml Output Total 600 ml Balance -200 ml Neuro: GCS15 CN 2-12 intact Heart: +S1,S2 Lungs: CTA Vascular: Palpable R/L Radial Pulses Equal terrazzo mechanic helper strength (Nita Kennedy) Laboratory Tests Test 09/05/17 19:40 09/06/17 05:47 Blood Urea Nitrogen 57 Creatinine 4.39 Random Glucose 223 Calcium Level 8.2 Sodium Level 137 Potassium Level 4.4 Chloride Level 104 Carbon Dioxide Level 23.1 Anion Gap 10 Estimat Glomerular Filtration Rate 12 Date/Time Source Procedure Growth Status 09/05/17 21:35 Urine Clean Catch Streptococcus pneumoniae Antigen (M Pending Received Last 48 hours Impressions Upper Extremity Ultrasound 09/05/17 0000 Signed Impressions: Service Date/Time: August 22:12 - CONCLUSION: No evidence of deep venous thrombosis left upper extremity. Uli Lord MD Upper Extremity Ultrasound 09/05/17 0000 Signed Impressions: Service Date/Time: August 22:22 - CONCLUSION: Upper extremity venous mapping as above. Uli Lord MD (Nita Kennedy) Assessment and Plan Assessment: (1) Dyspnea Status: Acute (2) Stage 4 chronic kidney disease Status: Chronic Plan Pt evaluated for an AVF Pt is right handed Reviewed US vein mapping Plan Discussed and reviewed AVF creation w/ pt Questions answered Pt scheduled for a LEFT Upper Extremity AVF creation w/ Dr. Rodriguez on Saturday () Consent signed and placed in the chart LEFT arm precautions- NO B/P/Lab Draws Nita NELSON [facility] [phone] (Nita Kennedy) Discharge Planning Plan for L brachiobasilic AVF (Monroe Rodriguez MD) Nita Kennedy Sep 06, 2017 09:27 Monroe Rodriguez MD Sep 08, 2017 10:18
[2017-09-06] MEDS ORDERED: LIDOCAINE 1%/EPINEPHrine 1:100,000 SOLN 20 ML VIAL ONE (09:54)
[2017-09-06] MEDS ORDERED: MIDAZOLAM HCL 2 MG/2 ML VIAL ONE ×2 (09:57→10:42)
[2017-09-06] MEDS ORDERED: HEPARIN SODIUM - IV 2,000 UNITS/2 ML VIAL IV FLUSH PRN (11:15)
[2017-09-06] MEDS ORDERED: SODIUM CHLORIDE 0.9% FLUSH 10 ML FLUSH IV FLUSH PRN (11:15)
--- NOTE | 2017-09-06 11:16 | PD.RAD ---
Post Procedure Progress Note Pre Procedure Diagnosis: (1) Stage 4 chronic kidney disease Post Procedure Diagnosis: (1) Stage 4 chronic kidney disease Procedure Date: Sep 06, 2017 Supervising Radiologist: Uli Bean JR Proceduralist/Assist: Nikki Sharma, RT(R)(CV), Ailyn Kent, RT(R) Anesthesia: Conscious Sedation Plan of Activity Patient to Unit: Critical Care Patient Condition: Good See PACS Report for procedural detail/treatment Central Venous Access Device Procedure 1 Right Hemodialysis Catheter Tunneled Placement dual lumen [place]: 15 Findings: Patient has a left sided pacer. Right IJ is occluded. Placed a right EJ Permcath. Is is good position and functions well. OK to use. Plan Remove sutures in 2-3 weeks Jr. Vikas,Uli Khan MD Sep 06, 2017 11:16
[2017-09-06] MEDS: INSULIN ASPART SUPPLEMENTAL SCALE SQ SCH ×3 (12:00→20:08)
[2017-09-06] MEDS ORDERED: GLUCAGON 1 MG/ML VIAL OTHER PRN (12:00)
[2017-09-06] MEDS ORDERED: DEXTROSE 50% IN WATER 50 ML VIAL(D50) IV PUSH PRN (12:00)
--- NOTE | 2017-09-06 12:02 | RADRPT ---
EXAM DATE/TIME: 09/06/2017 09:43 [place] COMPARISON: No previous studies available for comparison. INDICATIONS : Patient with chronic kidney disease in need of tunnelled dialysis catheter placement. MEDICAL HISTORY : CKD Stage IV, Non-ischemic cardiomyopathy with low ejection fraction, HTN, Diabetes, CHF, Migraines SURGICAL HISTORY : AICD placement, Tubal ligation, Cholecystectomy ENCOUNTER: Initial ACUITY: >1 year PAIN SCORE: 0/10 FLUORO TIME: 0.9 minutes IMAGE SERIES: 1 SEDATION TIME: 30 minutes ACCESS: Right external jugular vein SEDATION: 1.) 3 mg midazolam (Versed) IV 2.) 150 mcg fentanyl (Sublimaze) IV The patient is currently receiving antibiotic therapy. DEVICE: 1. 15 [place] dual lumen 19 cm Lomas II Plus catheter PROCEDURE : 1. Ultrasound-guided venipuncture. 2. PermaCath placement. 3. Conscious sedation with continuous EKG and oximetry monitoring. The risks, benefits and alternatives to the procedure were explained and verbal and written consent w as obtained. The site was prepped in sterile fashion. Full sterile technique was used, including ca p, mask, sterile gloves and gown and a large sterile sheet. Hand hygiene and 2% chlorhexidine and/or betadine/alcohol prep was utilized per protocol for cutaneous antisepsis. Sterile gel and sterile p robe cover were utilized for ultrasound guidance. The skin and subcutaneous tissues were infiltrated with local anesthetic solution. Ultrasound evaluation of the right neck shows a chronically occluded internal jugular vein. The patie nt has a pacing device involving the left chest. I was able to identify an external jugular vein on t he right. Access to the base of this vein at its confluence with the subclavian vein was planned. Wit h ultrasound and fluoroscopic guidance a dermatotomy was created over the prescribed vein. A micropu ncture set was used to access the targeted vein and serial dilatation was performed to accept the pre scribed length catheter. A subcutaneous tunnel was created in a retrograde fashion the catheter was pulled through the tunnel. The catheter was flushed and assembled and locked with heparin. The cath eter was sutured in place. Conscious sedation was performed with the prescribed dosages and duration as above in the presence of an independent trained radiology nurse to assist in the monitoring of the patient. EKG and oximetry remained stable throughout the procedure. The patient tolerated the procedure well and there were n o complications. The patient was sent to post anesthesia recovery in stable condition. CONCLUSION: The patient has a chronically occluded right internal jugular vein. A pacing device is seen on the le ft. A right external jugular vein perm catheter was placed. The catheter functions well and is ready for use. Uli Bean Jr., MD on September 06, 2017 at 11:57 Board Certified Radiologist. This report was verified electronically.
--- NOTE | 2017-09-06 12:12 | HHI.PR ---
Subjective Remarks Patient seen today and evaluation for chronic kidney disease to initiate hemodialysis AV fistula scheduled for Saturday Patient otherwise without new complaints Objective Vitals Vital Signs Date Time Temp Pulse Resp B/P (MAP) Pulse Ox O2 Delivery O2 Flow Rate FiO2 09/06/17 09:00 85 09/06/17 08:00 84 09/06/17 07:00 97.4 92 16 115/71 (86) 96 09/06/17 07:00 88 09/06/17 06:00 90 09/06/17 05:00 75 09/06/17 04:00 82 09/06/17 03:00 77 09/06/17 03:00 97.7 81 18 133/89 (104) 96 09/06/17 02:00 82 09/06/17 01:00 81 09/06/17 00:30 96 09/06/17 00:00 80 09/05/17 23:00 98.5 90 18 141/95 (110) 95 09/05/17 23:00 90 09/05/17 22:00 82 09/05/17 21:00 84 09/05/17 20:00 99.6 92 18 144/95 (111) 95 09/05/17 20:00 84 09/05/17 19:00 103 09/05/17 18:00 84 09/05/17 17:52 98 21 09/05/17 17:00 84 09/05/17 16:00 90 09/05/17 15:00 98.3 81 18 124/88 (100) 96 09/05/17 15:00 82 09/05/17 14:00 80 09/05/17 13:00 76 I/O 09/05/17 09/05/17 09/05/17 09/06/17 09/06/17 09/06/17 07:00 15:00 23:00 07:00 15:00 23:00 Intake Total 900 ml 850 ml 400 ml Output Total 550 ml 750 ml 600 ml Balance 350 ml 100 ml -200 ml Intake Oral 900 ml 850 ml 400 ml Output Urine Total 550 ml 750 ml 600 ml # Bowel Movements 0 0 Result Diagram: 09/03/17 0809 09/06/17 0547 Imaging Last Impressions Upper Extremity Ultrasound 09/05/17 0000 Signed Impressions: Service Date/Time: August 22:12 - CONCLUSION: No evidence of deep venous thrombosis left upper extremity. Uli Lord MD Chest X-Ray 09/03/17 0757 Signed Impressions: Service Date/Time: Sunday, September 03, 2017 09:00 - CONCLUSION: 1. Cardiomegaly. Clear lungs. Uli Bean Jr., MD Head CT 09/03/17 0000 Signed Impressions: Service Date/Time: Sunday, September 03, 2017 08:30 - CONCLUSION: Negative noncontrast head CT. Josef Garcia MD Carotid Artery Ultrasound 09/03/17 0000 Signed Impressions: Service Date/Time: Sunday, September 03, 2017 17:04 - CONCLUSION: Normal examination. Josef Giordano MD Objective Remarks GENERAL: This is a well-nourished, well-developed patient, in no apparent distress. CARDIOVASCULAR: Regular rate and rhythm without murmurs, gallops, or rubs. RESPIRATORY: Clear to auscultation. Breath sounds equal bilaterally. No wheezes , rales, or rhonchi. GASTROINTESTINAL: Abdomen soft, non-tender, nondistended. Normal active bowel sounds MUSCULOSKELETAL: Extremities without clubbing, cyanosis, and there is +2 edema, they are dusky NEURO: Alert & Oriented x4 to person, place, time, situation. Moves all ext x4 A/P Problem List: (1) Chronic kidney disease ICD Code: N18.9 - Chronic kidney disease, unspecified Status: Chronic Plan: Patient with severe renal dysfunction/ESRD avf saturday Continue to avoid nephrotoxins Follow urine output esrd for HD to start today, will need arrangements as an outpatient as ptn will need to start over with initiating HD (2) Cardiomyopathy ICD Code: I42.9 - Cardiomyopathy, unspecified Status: Chronic Plan: patient with cardiomyopathy Continue Bumex and follow renal function, urine output adequate Continue Coreg, entresto per cardiology With defibrillator (3) DM (diabetes mellitus) ICD Code: E11.9 - Type 2 diabetes mellitus without complications Status: Acute Plan: Hemoglobin A1c 5.6 in February Continue diet control and follow clinically (4) HTN (hypertension) ICD Code: I10 - Essential (primary) hypertension Status: Acute Plan: Continue Coreg ranjana / hydralazine prn also on entresto (5) Bronchitis ICD Code: J40 - Bronchitis, not specified as acute or chronic Status: Acute Plan: acute rocephin/azithromycin IV IV steroids pulm eval appreciated Assessment and Plan transfer to med surg Discharge Planning avf saturday need HD outpatient arranged Rita Gregory MD Sep 06, 2017 12:12
[2017-09-06] MEDS: HEPARIN SODIUM - IV 10,000 UNITS/10 ML VIAL PRN (14:56)
[2017-09-06] MEDS: GENTAMICIN SULFATE (DIALYSIS USE ONLY) 20 MG/2 ML VIAL OTHER PRN (14:56)
[2017-09-06] MEDS: EPOETIN ALFA 10,000 UNITS/ML VIAL IV PUSH PRN (14:57)
--- NOTE | 2017-09-06 16:25 | HHI.NPPN ---
Subjective History of Present Illness 27-year-old female known to me from before with past medical history of nonischemic cardiomyopathy with very low ejection fraction, history of chronic kidney disease with advanced renal failure, hypertension, diabetes mellitus, who came to the hospital with complaint of cough and shortness of breath. I was called to see the patient because of elevated BUN and creatinine. The patient has known history of chronic kidney disease. Additional Remarks Patient is alert, seen after HD, has pain at PermCath site, breathing and cough better. Review of Systems General Constitutional: Fatigue Respiratory Lungs: SOB, Cough, Sputum, Wheeze Cardiovascular Cardiac: [place] Objective Data Data 09/06/17 09/07/17 19:00 07:00 Output Total 1000 ml Balance -1000 ml Hemodialysis 1000 ml Vital Signs Date Time Temp Pulse Resp B/P (MAP) Pulse Ox O2 Delivery O2 Flow Rate FiO2 09/06/17 12:46 16 09/06/17 12:00 78 09/06/17 09:00 85 09/06/17 08:00 84 09/06/17 07:00 97.4 92 16 115/71 (86) 96 09/06/17 07:00 88 09/06/17 06:00 90 09/06/17 05:00 75 09/06/17 04:00 82 09/06/17 03:00 77 09/06/17 03:00 97.7 81 18 133/89 (104) 96 09/06/17 02:00 82 09/06/17 01:00 81 09/06/17 00:30 96 09/06/17 00:00 80 09/05/17 23:00 98.5 90 18 141/95 (110) 95 09/05/17 23:00 90 09/05/17 22:00 82 09/05/17 21:00 84 09/05/17 20:00 99.6 92 18 144/95 (111) 95 09/05/17 20:00 84 09/05/17 19:00 103 09/05/17 18:00 84 09/05/17 17:52 98 21 09/05/17 17:00 84 -: 09/03/17 0809 09/06/17 0547 Microbiology 09/05/17 Streptococcus pneumoniae Antigen (M - Final, Complete PRESUMPTIVE NEGATIVE FOR STREPTOCOCCU... Physical Exam General Appearance: No Acute Distress, Comfortable Eyes Eye Exam: Pupils Equal Throat Throat Exam: Oral Mucosa [place] & Moist Neck Neck Exam: Neck Supple Pulmonary Resp Exam: No Distress, Rhonchi, Sputum, Decreased Bases, Diminished Breath Sounds Cardiology CV Exam: Regular, Normal Sinus Rhythm Gastrointestinal/Abdomen GI Exam: Soft, Non-Tender, Bowel Sounds Present Extremeties Extremities Exam: Trace Edema Neurologic Neuro Exam: Alert, Awake, Oriented Psychiatric Psych Exam: Appropriate Responses Assessment/Plan Assessment Summary: CHF, Hypertension, CKD Stage V Problem List: (1) Proteinuria ICD Codes: R80.9 - Proteinuria, unspecified Status: Acute (2) Volume overload ICD Codes: E87.70 - Fluid overload, unspecified Status: Chronic (3) Diabetes type 2, controlled ICD Codes: E11.9 - Type 2 diabetes mellitus without complications Status: Chronic (4) HTN (hypertension) ICD Codes: I10 - Essential (primary) hypertension Status: Acute (5) Systolic CHF, chronic ICD Codes: I50.22 - Chronic systolic (congestive) heart failure Status: Acute (6) Stage 4 chronic kidney disease ICD Codes: N18.4 - Chronic kidney disease, stage 4 (severe) Status: Chronic Plan Patient has advance stage 4 chronic kidney disease, approaching stage5. She has symptoms of uremia, including decrease appetite, tiredness. Evaluated by PD nurse, not suitable for PD due to home condition. Started on HD after PermCath. To get AVF on Saturday. Out patient HD arrangement. Jeromy Allen MD Sep 06, 2017 16:25
--- NOTE | 2017-09-06 18:53 | HHI.PR ---
Subjective Remarks She is better. Has a Vascath and will be dialyzed. Off O2 . On Antibiotics, Zithro and Rocephin Objective Vital Signs Date Time Temp Pulse Resp B/P (MAP) Pulse Ox O2 Delivery O2 Flow Rate FiO2 09/06/17 18:21 14 09/06/17 18:00 83 09/06/17 17:00 90 09/06/17 16:00 96 09/06/17 12:00 78 09/06/17 09:00 85 09/06/17 08:00 84 09/06/17 07:00 97.4 92 16 115/71 (86) 96 09/06/17 07:00 88 09/06/17 06:00 90 09/06/17 05:00 75 09/06/17 04:00 82 09/06/17 03:00 77 09/06/17 03:00 97.7 81 18 133/89 (104) 96 09/06/17 02:00 82 09/06/17 01:00 81 09/06/17 00:30 96 09/06/17 00:00 80 09/05/17 23:00 98.5 90 18 141/95 (110) 95 09/05/17 23:00 90 09/05/17 22:00 82 09/05/17 21:00 84 09/05/17 20:00 99.6 92 18 144/95 (111) 95 09/05/17 20:00 84 09/05/17 19:00 103 I/O 09/05/17 09/05/17 09/05/17 09/06/17 09/06/17 09/06/17 07:00 15:00 23:00 07:00 15:00 23:00 Intake Total 900 ml 850 ml 400 ml 600 ml Output Total 550 ml 750 ml 600 ml 1000 ml Balance 350 ml 100 ml -200 ml -400 ml Intake Oral 900 ml 850 ml 400 ml 600 ml Output Urine Total 550 ml 750 ml 600 ml Hemodialysis 1000 ml # Voids 5 # Bowel Movements 0 0 Result Diagram: 09/03/17 0809 09/06/17 0547 Objective Remarks GENERAL: This averagely built, young, white female is alert and anxious. HEENT: Head normocephalic. Pupils are reactive and equal. Tongue is moist. Throat is injected. Nasal mucosa is clear. NECK: Supple. No bruits. No venous distension. No thyromegaly. CHEST: Distant breath sounds with expiratory wheezes bilaterally. There are no crackles on either side. HEART: Heart sounds are regular. S1 and S2. No murmur. ABDOMEN: Soft, protuberant with mild epigastric tenderness. No organomegaly. EXTREMITIES: No edema. Pigmentation of the skin of the lower extremities. No calf tenderness. NEUROLOGIC: Reflexes are 1+ with no gross motor or sensory deficits. Cranial nerves grossly intact. RECTAL: Exam is deferred. Assessment and Plan Assessment and Plan IMPRESSION 1. Acute bronchitis with possible early pneumonia. 2. cardiomyopathy. 3. Chronic kidney disease stage IV. 4. Diabetes mellitus. 5. Hypertension. Plan; 1. Continue antibiotics and Switch to PO meds in 2 days 2. Nebs tid Duoneb. 3. Dialysis as Planned. 4. PFT with Broncho 5. CBC,BMP. 6. CXR on Saturday. Yeni Nguyen MD Sep 06, 2017 18:53
[2017-09-06] MEDS: AZITHROMYCIN INJ 250 MG in SODIUM CHLOR 0.9% 250 ML INJ 250 ML IV SCH (20:14)
[2017-09-06] MEDS: cefTRIAXone INJ 1,000 MG in SODIUM CHLORIDE 0.9% INJ 100 ML IV SCH (21:26)
[2017-09-07] VITALS (8 sets, daily range): BP systolic 114–137; BP diastolic 64–83; PULSE 75–86; RESP 16–20; TEMP 97.9–98.7; O2SAT 94–97
[2017-09-07] MEDS: MORPHINE SULFATE 2 MG/ML INJ IV PUSH PRN ×6 (00:49→20:14)
[2017-09-07] MEDS: methylPREDNISolone SOD SUCC 40 MG/1 ML VIAL IV SCH ×3 (03:54→20:13)
[2017-09-07] MEDS: guaiFENesin/DEXTROMETHORPHAN 200 MG/20 MG/10 ML CUP PO PRN ×3 (03:57→16:11)
[2017-09-07] MEDS: HEPARIN SODIUM - SQ 10,000 UNITS/ML VIAL SQ SCH ×2 (06:02→18:00)
[2017-09-07] MEDS: INSULIN ASPART SUPPLEMENTAL SCALE SQ SCH ×4 (08:00→20:37)
[2017-09-07] MEDS: SODIUM CHLORIDE 0.9% FLUSH 10 ML FLUSH IV FLUSH SCH ×2 (09:00→20:13)
--- NOTE | 2017-09-07 10:10 | HHI.NPPN ---
Subjective History of Present Illness 27-year-old female known to me from before with past medical history of nonischemic cardiomyopathy with very low ejection fraction, history of chronic kidney disease with advanced renal failure, hypertension, diabetes mellitus, who came to the hospital with complaint of cough and shortness of breath. I was called to see the patient because of elevated BUN and creatinine. The patient has known history of chronic kidney disease. Additional Remarks Patient seen on HD, tolerating HD well. Review of Systems General Constitutional: Fatigue Respiratory Lungs: SOB, Cough, Sputum, Wheeze Cardiovascular Cardiac: [place] Objective Data Data Vital Signs Date Time Temp Pulse Resp B/P (MAP) Pulse Ox O2 Delivery O2 Flow Rate FiO2 09/07/17 04:00 98.3 86 16 114/64 (81) 96 09/07/17 03:59 18 09/07/17 00:00 98.3 80 18 125/74 (91) 97 09/06/17 21:30 100 09/06/17 21:29 96 21 09/06/17 20:00 99.1 87 18 144/79 (100) 94 09/06/17 20:00 98.5 97 16 129/78 (95) 97 09/06/17 20:00 83 09/06/17 19:00 84 09/06/17 18:00 83 09/06/17 17:00 90 09/06/17 16:00 96 09/06/17 12:00 78 -: 09/03/17 0809 09/06/17 0547 Physical Exam General Appearance: No Acute Distress, Comfortable Eyes Eye Exam: Pupils Equal Throat Throat Exam: Oral Mucosa [place] & Moist Neck Neck Exam: Neck Supple Pulmonary Resp Exam: No Distress, Rhonchi, Sputum, Decreased Bases, Diminished Breath Sounds Cardiology CV Exam: Regular, Normal Sinus Rhythm Gastrointestinal/Abdomen GI Exam: Soft, Non-Tender, Bowel Sounds Present Extremeties Extremities Exam: Trace Edema Neurologic Neuro Exam: Alert, Awake, Oriented Psychiatric Psych Exam: Appropriate Responses Assessment/Plan Assessment Summary: CHF, Hypertension, CKD Stage V Problem List: (1) Proteinuria ICD Codes: R80.9 - Proteinuria, unspecified Status: Acute (2) Volume overload ICD Codes: E87.70 - Fluid overload, unspecified Status: Chronic (3) Diabetes type 2, controlled ICD Codes: E11.9 - Type 2 diabetes mellitus without complications Status: Chronic (4) HTN (hypertension) ICD Codes: I10 - Essential (primary) hypertension Status: Acute (5) Systolic CHF, chronic ICD Codes: I50.22 - Chronic systolic (congestive) heart failure Status: Acute (6) Stage 4 chronic kidney disease ICD Codes: N18.4 - Chronic kidney disease, stage 4 (severe) Status: Chronic Plan Patient has advance stage 4 chronic kidney disease - initiated on HD yesterday via tunneled catheter. Evaluated by PD nurse, not suitable for PD due to home condition. To get AVF on Saturday. Pending outpatient HD arrangement. Will do HD today, then next HD Saturday. Volume status,electrolytes stable. Yohan Arellano MD Sep 07, 2017 10:10
[2017-09-07] MEDS: HEPARIN SODIUM - IV 10,000 UNITS/10 ML VIAL PRN (11:46)
[2017-09-07] MEDS: GENTAMICIN SULFATE (DIALYSIS USE ONLY) 20 MG/2 ML VIAL OTHER PRN (11:47)
[2017-09-07] MEDS: CARVEDILOL 12.5 MG TAB PO SCH ×2 (12:27→20:12)
[2017-09-07] MEDS: SACUBITRIL/VALSARTAN 49 MG-51 MG TAB PO SCH ×2 (12:27→20:12)
[2017-09-07] MEDS: BUMETANIDE INJ 1 MG/4 ML VIAL IV PUSH SCH ×2 (12:27→18:18)
--- NOTE | 2017-09-07 17:09 | HHI.PR ---
Subjective Remarks Some insomnia overnight which may be related to steroid effect. No other new complaints today. AV fistula planning placement in 2 days. Objective Vital Signs Date Time Temp Pulse Resp B/P (MAP) Pulse Ox O2 Delivery O2 Flow Rate FiO2 09/07/17 12:00 98.4 78 18 137/83 (101) 96 09/07/17 08:00 80 09/07/17 04:00 98.3 86 16 114/64 (81) 96 09/07/17 03:59 18 09/07/17 00:00 98.3 80 18 125/74 (91) 97 09/06/17 21:30 100 09/06/17 21:29 96 21 09/06/17 20:00 99.1 87 18 144/79 (100) 94 09/06/17 20:00 98.5 97 16 129/78 (95) 97 09/06/17 20:00 83 09/06/17 19:00 84 09/06/17 18:00 83 I/O 09/06/17 09/06/17 09/06/17 09/07/17 09/07/17 09/07/17 07:00 15:00 23:00 07:00 15:00 23:00 Intake Total 400 ml 950 ml 90 ml Output Total 600 ml 1000 ml 3000 ml Balance -200 ml -50 ml 90 ml -3000 ml Intake Oral 400 ml 600 ml 90 ml IV Total 350 ml Output Urine Total 600 ml Hemodialysis 1000 ml 3000 ml # Voids 5 2 # Bowel Movements 0 Result Diagram: 09/03/17 0809 09/06/17 0547 Objective Remarks GENERAL: NAD, A&Ox3 HEAD: Normocephalic. NECK: Supple, trachea midline. No lymphadenopathy. EYES: No scleral icterus. No injection or drainage. CARDIOVASCULAR: Regular rate and rhythm without murmurs, gallops, or rubs. RESPIRATORY: Breath sounds equal bilaterally. No accessory muscle use. GASTROINTESTINAL: Abdomen soft, non-tender, nondistended. MUSCULOSKELETAL: No cyanosis, or edema. SKIN: Warm and dry. NEURO: No focal neurological deficitis. A/P Problem List: (1) Chronic kidney disease ICD Code: N18.9 - Chronic kidney disease, unspecified Status: Chronic (2) Proteinuria ICD Code: R80.9 - Proteinuria, unspecified Status: Acute (3) Diabetes type 2, controlled ICD Code: E11.9 - Type 2 diabetes mellitus without complications Status: Chronic (4) Systolic CHF, chronic ICD Code: I50.22 - Chronic systolic (congestive) heart failure Status: Acute (5) Volume overload ICD Code: E87.70 - Fluid overload, unspecified Status: Chronic (6) Non-ischemic cardiomyopathy ICD Code: I42.8 - Other cardiomyopathies Status: Chronic (7) History of CHF (congestive heart failure) ICD Code: Z86.79 - Personal history of other diseases of the circulatory system Status: Acute (8) Cardiorenal syndrome ICD Code: I13.10 - Hypertensive heart and chronic kidney disease without heart failure, with stage 1 through stage 4 chronic kidney disease, or unspecified chronic kidney disease Status: Acute Assessment and Plan Assessment and plan 27-year-old female with chronic related CHF admitted secondary to CHF exacerbation with renal failure. CHF exacerbation Chronic cardiomyopathy, Improved Degree of cardiorenal syndrome would be present Continue diuresis Continue Bumex Continue Coreg Continue Entresto Defibrillator present Acute kidney failure on chronic kidney disease Plan for a VF placement on 09/09/07 Avoid nephrotoxins Follow urine output Hemodialysis as needed Nephrology following Etiology of her renal disease could strictly be related to cardiorenal syndrome but may also represent nephrotic syndrome or a combination. Obtain autoimmune screen with RF, HAMLET, CRP, and ESR She is presently on high-dose steroids for her respiratory state Diabetes mellitus type 2 Diet controlled Follow blood sugars Continue diabetic diet Hypertension Continue Coreg As needed hydralazine Follow blood pressures Bronchitis Acute respiratory distress Reactive airway Improving Continue Rocephin Continue azithromycin Pulmonology following Continue IV steroids Discharge planning Need for Outpatient hemodialysis anticipated Yohan Frost MD Sep 07, 2017 17:09
[2017-09-07] MEDS: HYDROmorphone HCL 2 MG TAB PO PRN ×2 (18:13→22:15)
[2017-09-07] MEDS: cefTRIAXone INJ 1,000 MG in SODIUM CHLORIDE 0.9% INJ 100 ML IV SCH (20:17)
[2017-09-07] MEDS: AZITHROMYCIN INJ 250 MG in SODIUM CHLOR 0.9% 250 ML INJ 250 ML IV SCH (20:24)
[2017-09-07] MEDS: PROCHLORPERAZINE INJ 10 MG/2 ML VIAL IV PUSH PRN (21:49)
[2017-09-07] MEDS: SODIUM CHLORIDE 0.9% FLUSH 10 ML FLUSH IV FLUSH PRN (21:50)
[2017-09-08] VITALS (9 sets, daily range): BP systolic 105–145; BP diastolic 60–87; PULSE 68–101; RESP 18–20; TEMP 97.8–98.5; O2SAT 94–97
[2017-09-08] MEDS: MORPHINE SULFATE 2 MG/ML INJ IV PUSH PRN ×6 (00:29→23:07)
[2017-09-08] MEDS: SODIUM CHLORIDE 0.9% FLUSH 10 ML FLUSH IV FLUSH PRN (00:29)
[2017-09-08] MEDS: methylPREDNISolone SOD SUCC 40 MG/1 ML VIAL IV SCH ×3 (04:20→19:27)
[2017-09-08] MEDS: HYDROmorphone HCL 2 MG TAB PO PRN ×5 (04:20→21:13)
[2017-09-08] MEDS: HEPARIN SODIUM - SQ 10,000 UNITS/ML VIAL SQ SCH ×2 (06:00→18:19)
[2017-09-08] MEDS: SODIUM CHLORIDE 0.9% FLUSH 10 ML FLUSH IVF PRN (06:25)
[2017-09-08] MEDS: INSULIN ASPART SUPPLEMENTAL SCALE SQ SCH ×4 (08:00→21:16)
[2017-09-08] MEDS: guaiFENesin/DEXTROMETHORPHAN 200 MG/20 MG/10 ML CUP PO PRN ×2 (08:50→18:14)
[2017-09-08] MEDS: CARVEDILOL 12.5 MG TAB PO SCH ×2 (08:50→21:13)
[2017-09-08] MEDS: BUMETANIDE INJ 1 MG/4 ML VIAL IV PUSH SCH ×2 (08:50→18:18)
[2017-09-08] MEDS: SODIUM CHLORIDE 0.9% FLUSH 10 ML FLUSH IV FLUSH SCH ×2 (08:52→21:00)
[2017-09-08] MEDS: SACUBITRIL/VALSARTAN 49 MG-51 MG TAB PO SCH ×2 (08:52→21:13)
[2017-09-08 10:20] LABS: AUTOMATED NEUTROPHIL # 7.4 TH/MM3 (1.8-7.7); BASOPHIL % 0.1 % (0.0-2.0); HEMATOCRIT 35.2 % (35.0-46.0); HEMO FLAGS DIFF FINAL; LYMPH % 6.4 % (9.0-44.0); LYMPHOCYTE # 0.5 TH/MM3 (1.0-4.8); MEAN CELL VOLUME 85.1 FL (80.0-100.0); MEAN CORPUSCULAR HEMOGLOBIN 27.9 PG (27.0-34.0); MEAN CORPUSCULAR HGB CONC 32.7 % (32.0-36.0); MONO % 2.3 % (0.0-8.0); NEUT % 91.2 % (16.0-70.0); PLATELET COUNT 198 TH/MM3 (150-450); RED BLOOD COUNT 4.13 MIL/MM3 (4.00-5.30); RED CELL DISTRIBUTION WIDTH 16.1 % (11.6-17.2); WHITE BLOOD COUNT 8.2 TH/MM3 (4.0-11.0)
[2017-09-08 10:51] LABS: ALKALINE PHOSPHATASE 102 U/L (45-117); ALT (GPT) 24 U/L (10-53); ANION GAP 9 MEQ/L (5-15); AST (GOT) 11 U/L (15-37); BICARBONATE 25.7 MEQ/L (21.0-32.0); BLOOD UREA NITROGEN 58 MG/DL (7-18); CHLORIDE 100 MEQ/L (98-107); GLOMERULAR FILTRATION RATE 16 ML/MIN (>89); POTASSIUM 4.6 MEQ/L (3.5-5.1); SODIUM (NA) 135 MEQ/L (136-145); TOTAL BILIRUBIN ADULT 0.3 MG/DL (0.2-1.0)
[2017-09-08 11:40] LABS: RHEUMATOID FACTOR TRIGGER LESS THAN 10.0 IU/ML (0.0-14.9)
--- NOTE | 2017-09-08 12:59 | HHI.NPPN ---
Subjective History of Present Illness 27-year-old female known to me from before with past medical history of nonischemic cardiomyopathy with very low ejection fraction, history of chronic kidney disease with advanced renal failure, hypertension, diabetes mellitus, who came to the hospital with complaint of cough and shortness of breath. I was called to see the patient because of elevated BUN and creatinine. The patient has known history of chronic kidney disease. Additional Remarks No acute complaints, tolerated HD yesterday Review of Systems General Constitutional: Fatigue Respiratory Lungs: SOB, Cough, Sputum, Wheeze Cardiovascular Cardiac: CONN[place] Objective Data Data Vital Signs Date Time Temp Pulse Resp B/P (MAP) Pulse Ox O2 Delivery O2 Flow Rate FiO2 09/08/17 11:05 97 21 09/08/17 08:00 98.5 69 18 122/85 (97) 97 09/08/17 04:00 98.4 68 18 125/82 (96) 97 09/08/17 00:00 98.0 76 18 105/60 (75) 95 09/07/17 22:48 96 09/07/17 20:12 77 09/07/17 20:10 98.6 77 16 126/80 (95) 96 09/07/17 16:00 97.9 77 18 129/73 (91) 94 -: 09/08/17 0950 09/08/17 0950 Physical Exam General Appearance: No Acute Distress, Comfortable Eyes Eye Exam: Pupils Equal Throat Throat Exam: Oral Mucosa [place] & Moist Neck Neck Exam: Neck Supple Pulmonary Resp Exam: No Distress, Rhonchi, Sputum, Decreased Bases, Diminished Breath Sounds Cardiology CV Exam: Regular, Normal Sinus Rhythm Gastrointestinal/Abdomen GI Exam: Soft, Non-Tender, Bowel Sounds Present Extremeties Extremities Exam: Trace Edema Neurologic Neuro Exam: Alert, Awake, Oriented Psychiatric Psych Exam: Appropriate Responses Assessment/Plan Assessment Summary: CHF, Hypertension, CKD Stage V Problem List: (1) Proteinuria ICD Codes: R80.9 - Proteinuria, unspecified Status: Acute (2) Volume overload ICD Codes: E87.70 - Fluid overload, unspecified Status: Chronic (3) Diabetes type 2, controlled ICD Codes: E11.9 - Type 2 diabetes mellitus without complications Status: Chronic (4) HTN (hypertension) ICD Codes: I10 - Essential (primary) hypertension Status: Acute (5) Systolic CHF, chronic ICD Codes: I50.22 - Chronic systolic (congestive) heart failure Status: Acute (6) Stage 4 chronic kidney disease ICD Codes: N18.4 - Chronic kidney disease, stage 4 (severe) Status: Chronic Plan Patient has advance stage 4 chronic kidney disease - initiated on HD Saturday via tunneled catheter. Evaluated by PD nurse, not suitable for PD due to home condition. To get AVF on Saturday. Pending outpatient HD arrangement. HD done Saturday, then next HD Saturday, Saturday. Volume status,electrolytes stable. Tolerating HD well. Yohan Arellano MD Sep 08, 2017 12:59
--- NOTE | 2017-09-08 15:26 | HHI.PR ---
Subjective Remarks Patient slept well last night. Creatinine is improved status post dialysis. Plan for AV fistula on 09/09/17. Outpatient arrangements for dialysis are being made. Her only complaints today are chapped lips. Objective Vital Signs Date Time Temp Pulse Resp B/P (MAP) Pulse Ox O2 Delivery O2 Flow Rate FiO2 09/08/17 11:05 97 21 09/08/17 08:00 98.5 69 18 122/85 (97) 97 09/08/17 08:00 72 09/08/17 04:00 98.4 68 18 125/82 (96) 97 09/08/17 00:00 98.0 76 18 105/60 (75) 95 09/07/17 22:48 96 09/07/17 20:12 77 09/07/17 20:10 98.6 77 16 126/80 (95) 96 09/07/17 16:00 97.9 77 18 129/73 (91) 94 I/O 09/07/17 09/07/17 09/07/17 09/08/17 09/08/17 09/08/17 07:00 15:00 23:00 07:00 15:00 23:00 Intake Total 90 ml 480 ml 0 ml Output Total 3000 ml Balance 90 ml -3000 ml 480 ml 0 ml Intake Oral 90 ml 480 ml 0 ml Hemodialysis 3000 ml # Voids 2 1 3 # Bowel Movements 0 0 0 Result Diagram: 09/08/17 0950 09/08/17 0950 Objective Remarks GENERAL: NAD, A&Ox3 HEAD: Normocephalic. NECK: Supple, trachea midline. No lymphadenopathy. EYES: No scleral icterus. No injection or drainage. CARDIOVASCULAR: Regular rate and rhythm without murmurs, gallops, or rubs. RESPIRATORY: Breath sounds equal bilaterally. No accessory muscle use. GASTROINTESTINAL: Abdomen soft, non-tender, nondistended. MUSCULOSKELETAL: No cyanosis, or edema. SKIN: Warm and dry. NEURO: No focal neurological deficitis. A/P Problem List: (1) Chronic kidney disease ICD Code: N18.9 - Chronic kidney disease, unspecified Status: Chronic (2) Proteinuria ICD Code: R80.9 - Proteinuria, unspecified Status: Acute (3) Diabetes type 2, controlled ICD Code: E11.9 - Type 2 diabetes mellitus without complications Status: Chronic (4) Systolic CHF, chronic ICD Code: I50.22 - Chronic systolic (congestive) heart failure Status: Acute (5) Volume overload ICD Code: E87.70 - Fluid overload, unspecified Status: Chronic (6) Non-ischemic cardiomyopathy ICD Code: I42.8 - Other cardiomyopathies Status: Chronic (7) History of CHF (congestive heart failure) ICD Code: Z86.79 - Personal history of other diseases of the circulatory system Status: Acute (8) Cardiorenal syndrome ICD Code: I13.10 - Hypertensive heart and chronic kidney disease without heart failure, with stage 1 through stage 4 chronic kidney disease, or unspecified chronic kidney disease Status: Acute Assessment and Plan Assessment and plan 27-year-old female with chronic related CHF admitted secondary to CHF exacerbation with renal failure. Labs reviewed. Improvement in creatinine. ESR and CRP are elevated. Rheumatoid factor is negative. HAMLET is pending. Positive hepatitis C screen. CHF exacerbation Chronic cardiomyopathy, Improved Degree of cardiorenal syndrome would be present Continue diuresis Continue Bumex Continue Coreg Continue Entresto Defibrillator present Acute kidney failure on chronic kidney disease Plan for a VF placement on 09/09/07 Avoid nephrotoxins Follow urine output Hemodialysis as needed Nephrology following Etiology of her renal disease could strictly be related to cardiorenal syndrome but may also represent nephrotic syndrome or a combination. Obtain autoimmune screen with RF, HAMLET, CRP, and ESR She is presently on high-dose steroids for her respiratory state Diabetes mellitus type 2 Diet controlled Follow blood sugars Continue diabetic diet Hypertension Continue Coreg As needed hydralazine Follow blood pressures Bronchitis Acute respiratory distress Reactive airway Improving Continue Rocephin Continue azithromycin Pulmonology following Continue IV steroids Discharge planning Need for Outpatient hemodialysis anticipated Yohan Frost MD Sep 08, 2017 15:26
[2017-09-08] MEDS ORDERED: DIMETHICONE/OXYBENZONE/PADMIATE LIP BALM 4.25 GM TOPICAL PRN (15:30)
[2017-09-08] MEDS: AZITHROMYCIN INJ 250 MG in SODIUM CHLOR 0.9% 250 ML INJ 250 ML IV SCH (19:28)
[2017-09-08] MEDS: RESP: ALBUTEROL 2.5 MG/IPRATROPIUM 0.5 MG NEB (PRN) NEB (21:59)
[2017-09-08] MEDS: ZOLPIDEM TARTRATE 5 MG TAB PO PRN (23:07)
[2017-09-08] MEDS: cefTRIAXone INJ 1,000 MG in SODIUM CHLORIDE 0.9% INJ 100 ML IV SCH (23:07)
[2017-09-09] VITALS: BP 127/72; PULSE 72; RESP 18; TEMP 97.3; O2SAT 96
[2017-09-09] MEDS: guaiFENesin/DEXTROMETHORPHAN 200 MG/20 MG/10 ML CUP PO PRN ×2 (02:41→17:37)
[2017-09-09] MEDS: HYDROmorphone HCL 2 MG TAB PO PRN ×4 (02:42→21:36)
[2017-09-09] MEDS: methylPREDNISolone SOD SUCC 40 MG/1 ML VIAL IV SCH ×2 (03:42→12:35)
[2017-09-09] MEDS: MORPHINE SULFATE 2 MG/ML INJ IV PUSH PRN ×2 (03:45→09:03)
[2017-09-09 04:00] VITALS: BP 122/77; PULSE 72; RESP 18; TEMP 97.9; O2SAT 96
[2017-09-09] MEDS: HEPARIN SODIUM - SQ 10,000 UNITS/ML VIAL SQ SCH ×2 (06:56→17:34)
[2017-09-09 08:00] VITALS: BP 133/82; PULSE 75; PULSE 84; RESP 20; TEMP 97.8; O2SAT 97
[2017-09-09] MEDS: INSULIN ASPART SUPPLEMENTAL SCALE SQ SCH ×4 (08:58→21:46)
[2017-09-09] MEDS: SODIUM CHLORIDE 0.9% FLUSH 10 ML FLUSH IV FLUSH SCH ×2 (09:00→21:00)
--- NOTE | 2017-09-09 10:22 | HHI.NPPN ---
Subjective History of Present Illness 27-year-old female known to me from before with past medical history of nonischemic cardiomyopathy with very low ejection fraction, history of chronic kidney disease with advanced renal failure, hypertension, diabetes mellitus, who came to the hospital with complaint of cough and shortness of breath. I was called to see the patient because of elevated BUN and creatinine. The patient has known history of chronic kidney disease. Additional Remarks Patient seen during HD, no SOB, feeling better. Review of Systems General Constitutional: Fatigue Respiratory Lungs: SOB, Cough, Sputum, Wheeze Cardiovascular Cardiac: CONNORS Objective Data Data Vital Signs Date Time Temp Pulse Resp B/P (MAP) Pulse Ox O2 Delivery O2 Flow Rate FiO2 09/09/17 09:07 14 09/09/17 08:58 16 09/09/17 04:00 97.9 72 18 122/77 (92) 96 09/09/17 00:00 97.3 72 18 127/72 (90) 96 09/08/17 22:00 97 21 09/08/17 20:10 101 09/08/17 20:00 97.8 91 18 135/87 (103) 94 09/08/17 16:00 97.8 81 20 144/81 (102) 94 09/08/17 12:00 98.1 75 20 145/81 (102) 95 09/08/17 11:05 97 21 -: 09/08/17 0950 09/08/17 0950 Physical Exam General Appearance: No Acute Distress, Comfortable Eyes Eye Exam: Pupils Equal Throat Throat Exam: Oral Mucosa [place] & Moist Neck Neck Exam: Neck Supple Pulmonary Resp Exam: No Distress, Rhonchi, Sputum, Decreased Bases, Diminished Breath Sounds Cardiology CV Exam: Regular, Normal Sinus Rhythm Gastrointestinal/Abdomen GI Exam: Soft, Non-Tender, Bowel Sounds Present Extremeties Extremities Exam: Trace Edema Neurologic Neuro Exam: Alert, Awake, Oriented Psychiatric Psych Exam: Appropriate Responses Assessment/Plan Assessment Summary: CHF, Hypertension, CKD Stage V Problem List: (1) Proteinuria ICD Codes: R80.9 - Proteinuria, unspecified Status: Acute (2) Volume overload ICD Codes: E87.70 - Fluid overload, unspecified Status: Chronic (3) Diabetes type 2, controlled ICD Codes: E11.9 - Type 2 diabetes mellitus without complications Status: Chronic (4) HTN (hypertension) ICD Codes: I10 - Essential (primary) hypertension Status: Acute (5) Systolic CHF, chronic ICD Codes: I50.22 - Chronic systolic (congestive) heart failure Status: Acute (6) Stage 4 chronic kidney disease ICD Codes: N18.4 - Chronic kidney disease, stage 4 (severe) Status: Chronic Plan Patient has advance stage 4 chronic kidney disease reached stage 5. Started on HD Saturday via tunneled catheter. Evaluated by PD nurse, not suitable for PD due to home condition. To get AVF today. Pending outpatient HD arrangement. HD now, remove fluid as tolerated. Jeromy Allen MD Sep 09, 2017 10:22
[2017-09-09] MEDS ORDERED: ePHEDrine/NS 25 MG/5 ML SYR IV ONE (12:00)
[2017-09-09] MEDS ORDERED: DEXAMETHASONE SOD PHOS 4 MG/ML VIAL IV ONE (12:00)
[2017-09-09] MEDS ORDERED: PROPOFOL 200 MG/20 ML AMP IV ONE (12:00)
[2017-09-09] MEDS ORDERED: MIDAZOLAM HCL 2 MG/2 ML VIAL IV ONE (12:00)
[2017-09-09] MEDS ORDERED: SODIUM CHLOR 0.9% 250 ML INJ 250 ML IV ONE (12:00)
[2017-09-09] MEDS ORDERED: LIDOCAINE HCL 1% PF 5 ML SYRINGE OTHER ONE (12:00)
[2017-09-09] MEDS ORDERED: VANCOMYCIN HCL 1000 MG VIAL ONE (12:04)
[2017-09-09] MEDS ORDERED: PROTAMINE SULFATE 50 MG/5 ML VIAL ONE (12:04)
[2017-09-09] MEDS ORDERED: HEPARIN SODIUM - IV 10,000 UNITS/10 ML VIAL ONE (12:04)
[2017-09-09] MEDS ORDERED: HEPARIN-NS/PF INJ 500 ML ONE (12:05)
[2017-09-09] MEDS ORDERED: BUPIVACAINE HCL PF 0.5% 30 ML VIAL ONE (12:05)
[2017-09-09] MEDS ORDERED: THROMBIN (TOPICAL) 20,000 UNIT SPRAY KIT ONE (12:05)
[2017-09-09] MEDS: GENTAMICIN SULFATE (DIALYSIS USE ONLY) 20 MG/2 ML VIAL OTHER PRN (12:22)
[2017-09-09] MEDS: EPOETIN ALFA 10,000 UNITS/ML VIAL IV PUSH PRN (12:22)
[2017-09-09] MEDS ORDERED: ACETAMINOPHEN 1000 MG/100 ML 100 ML IV ONE (12:30)
[2017-09-09] MEDS: BUMETANIDE INJ 1 MG/4 ML VIAL IV PUSH SCH ×2 (12:35→17:33)
[2017-09-09] MEDS: SACUBITRIL/VALSARTAN 49 MG-51 MG TAB PO SCH ×2 (12:35→21:31)
[2017-09-09] MEDS: CARVEDILOL 12.5 MG TAB PO SCH ×2 (12:35→21:31)
--- NOTE | 2017-09-09 14:05 | HHI.PR ---
Immediate Post Op Note Procedure Date: Sep 09, 2017 Pre Op Diagnosis: ESRD, need for HD access Post Op Diagnosis: same Surgeon: Monroe Rodriguez Flexo Folder Gluer Operator(s): Ashtyn Procedure: L brachiobasilic AVF (1st stage) Findings: 2mm vein 4mm artery Additional Information: + audible bruit after AVF strong radial Doppler signals Complications: none Specimen(s) removed: none Estimated blood loss: 30mL Anesthesia: General Drains: None Fluids: 450mL IVF Patient to: PACU Patient Condition: Good Date/Time of Procedure: SEE SURGICAL CARE RECORD Monroe Rdoriguez MD Sep 09, 2017 14:05
[2017-09-09] MEDS ORDERED: DO NOT ADM ANY ANTICOAGULANT DRUGS PRN (14:27)
[2017-09-09] MEDS: MORPHINE SULFATE 4 MG/ML INJ IV PUSH PRN ×3 (15:29→23:03)
--- NOTE | 2017-09-09 15:59 | HHI.PR ---
Subjective Remarks The patient was ambulating. She said she got her procedure done. Her mother was at the bedside. Their questions were answered. Discussed with nursing. Objective Vitals Vital Signs Date Time Temp Pulse Resp B/P (MAP) Pulse Ox O2 Delivery O2 Flow Rate FiO2 09/09/17 15:35 16 09/09/17 14:45 97.7 75 14 144/93 (110) 100 Room Air 09/09/17 14:30 86 14 138/93 (108) 99 Nasal Cannula 2 09/09/17 14:28 97.7 70 14 118/76 (90) 96 Nasal Cannula 2 09/09/17 09:07 14 09/09/17 08:58 16 09/09/17 08:00 97.8 75 20 133/82 (99) 97 09/09/17 08:00 84 09/09/17 04:00 97.9 72 18 122/77 (92) 96 09/09/17 00:00 97.3 72 18 127/72 (90) 96 09/08/17 22:00 97 21 09/08/17 20:10 101 09/08/17 20:00 97.8 91 18 135/87 (103) 94 09/08/17 16:00 97.8 81 20 144/81 (102) 94 I/O 09/08/17 09/08/17 09/08/17 09/09/17 09/09/17 09/09/17 07:00 15:00 23:00 07:00 15:00 23:00 Intake Total 0 ml 730 ml 100 ml 450 ml Output Total 3030 ml Balance 0 ml 730 ml 100 ml -2580 ml Intake Oral 0 ml 480 ml 0 ml IV Total 250 ml 100 ml Other 450 ml Hemodialysis 3000 ml Estimated Blood Loss 30 ml # Voids 3 5 2 # Bowel Movements 0 1 0 Result Diagram: 09/08/17 0950 09/08/17 0950 Imaging Last Impressions Catheter Placement X-Ray 09/06/17 0000 Signed Impressions: Service Date/Time: Wednesday, September 06, 2017 09:43 - CONCLUSION: The patient has a chronically occluded right internal jugular vein. A pacing device is seen on the left. A right external jugular vein perm catheter was placed. The catheter functions well and is ready for use. Uli Bean Jr., MD Upper Extremity Ultrasound 09/05/17 0000 Signed Impressions: Service Date/Time: August 22:12 - CONCLUSION: No evidence of deep venous thrombosis left upper extremity. Uli Lord MD Chest X-Ray 09/03/17 0757 Signed Impressions: Service Date/Time: Sunday, September 03, 2017 09:00 - CONCLUSION: 1. Cardiomegaly. Clear lungs. Uli Bean Jr., MD Head CT 09/03/17 0000 Signed Impressions: Service Date/Time: Sunday, September 03, 2017 08:30 - CONCLUSION: Negative noncontrast head CT. Josef Garcia MD Carotid Artery Ultrasound 09/03/17 0000 Signed Impressions: Service Date/Time: Sunday, September 03, 2017 17:04 - CONCLUSION: Normal examination. Josef Giordano MD Objective Remarks GENERAL: NAD, A&Ox3 HEAD: Normocephalic. NECK: Supple, trachea midline. No lymphadenopathy. EYES: No scleral icterus. No injection or drainage. CARDIOVASCULAR: Regular rate and rhythm without murmurs, gallops, or rubs. RESPIRATORY: Breath sounds equal bilaterally. No accessory muscle use. GASTROINTESTINAL: Abdomen soft, non-tender, nondistended. MUSCULOSKELETAL: No cyanosis, or edema. SKIN: Warm and dry. NEURO: No focal neurological deficitis. Procedures AVF placement 09/09/17 Medications and IVs Current Medications Medications (Trade) Dose Ordered Sig/Arnold Route Start Time Stop Time Status Last Admin (NS Flush) 2 ml BID IV FLUSH 09/03/17 21:00 09/09/17 09:00 (NS Flush) 2 ml UNSCH PRN IV FLUSH 09/03/17 11:30 09/08/17 00:29 (Coreg) 25 mg Q12HR PO 09/03/17 21:00 09/08/17 21:13 (Bumex Inj) 1 mg BID@,18 IV PUSH 09/03/17 21:00 09/08/17 18:18 (Robitussin Dm 200-20 Mg/10 ml Liq) 10 ml Q4H PRN PO 09/03/17 16:15 09/09/17 02:41 (Duoneb Neb) 1 ampule Q4HR NEB PRN NEB 09/03/17 16:30 09/08/17 21:59 (Compazine Inj) 5 mg Q6H PRN IV PUSH 09/03/17 20:15 09/07/17 21:49 (Heparin Inj) 5,000 units Q12H SQ 09/05/17 18:00 09/09/17 06:56 (Apresoline) 10 mg Q12H PRN PO 09/05/17 13:00 Sodium Chloride 1,000 ml @ 0 mls/hr Q0M PRN OTHER 09/05/17 18:43 09/06/17 14:57 (Heparin Inj) 8,000 units UNSCH PRN IV FLUSH 09/05/17 18:45 Sodium Chloride 1,000 ml @ 200 mls/hr Q5H PRN IV 09/05/17 18:43 Sodium Chloride 1,000 ml @ 0 mls/hr Q0M PRN OTHER 09/05/17 18:43 (Mannitol Inj) 12.5 gm UNSCH PRN IV 09/05/17 18:45 Albumin Human 100 ml @ 60 mls/hr UNSCH PRN IV 09/05/17 18:45 (NS Flush) 5 ml UNSCH PRN IV FLUSH 09/05/17 18:45 (Heparin Inj) UNSCH PRN .XX 09/05/17 18:45 09/07/17 11:46 (Gentamicin (Dialysis) Inj) 20 mg UNSCH PRN OTHER 09/05/17 18:45 09/09/17 12:22 (Zofran Inj) 4 mg UNSCH PRN IV PUSH 09/05/17 18:45 09/05/17 22:39 (Tylenol) 650 mg UNSCH PRN PO 09/05/17 18:45 (Benadryl) 25 mg UNSCH PRN PO 09/05/17 18:45 (Nitrostat Sl) 0.4 mg UNSCH PRN SL 09/05/17 18:45 (Catapres) 0.1 mg UNSCH PRN PO 09/05/17 18:45 (Epogen Inj) 4,000 units UNSCH PRN IV PUSH 09/05/17 18:45 09/09/17 12:22 (Gelfoam 12 Mm/7 Mm Top) 1 foam UNSCH PRN TOP 09/05/17 18:45 Azithromycin 250 mg/Sodium Chloride 250 ml @ 250 mls/hr Q24H IV 09/05/17 20:00 09/08/17 19:28 (SoluMEDROL INJ) 40 mg Q8H IV 09/05/17 20:00 09/09/17 03:42 Ceftriaxone Sodium 1000 mg/ Sodium Chloride 100 ml @ 200 mls/hr Q24H IV 09/05/17 21:00 09/08/17 23:07 (Entresto 49-51 Mg) 1 tab BID PO 09/06/17 09:00 09/08/17 21:13 (NS Flush) UNSCH PRN IV FLUSH 09/06/17 11:15 (Heparin Inj) UNSCH PRN IV FLUSH 09/06/17 11:15 (D50w (Vial) Inj) 50 ml UNSCH PRN IV PUSH 09/06/17 12:00 (Glucagon Inj) 1 mg UNSCH PRN OTHER 09/06/17 12:00 (NovoLOG SUPPLEMENTAL SCALE) 1 ACHS SLIDING SCALE SQ 09/06/17 12:00 09/08/17 21:16 (Ambien) 5 mg HS PRN PO 09/07/17 17:00 09/08/17 23:07 (Blistex Lip [place]) 1 applic UNSCH PRN TOPICAL 09/08/17 15:30 09/09/17 02:42 (Roxicodone) 5 mg Q4H PRN PO 09/09/17 14:15 (Dilaudid) 2 mg Q4H PRN PO 09/09/17 14:15 (Morphine Inj) 2 mg Q1H PRN IV PUSH 09/09/17 14:15 09/09/17 15:29 ([place]-Colace) 1 tab BID PO 09/09/17 21:00 Miscellaneous Information ALL NURSING DEPARTME... UNSCH PRN .XX 09/09/17 14:27 09/10/17 14:26 A/P Problem List: (1) Chronic kidney disease ICD Code: N18.9 - Chronic kidney disease, unspecified Status: Chronic (2) Cardiomyopathy ICD Code: I42.9 - Cardiomyopathy, unspecified Status: Chronic (3) DM (diabetes mellitus) ICD Code: E11.9 - Type 2 diabetes mellitus without complications Status: Acute (4) HTN (hypertension) ICD Code: I10 - Essential (primary) hypertension Status: Acute (5) Bronchitis ICD Code: J40 - Bronchitis, not specified as acute or chronic Status: Acute Assessment and Plan 27-year-old female with chronic related CHF admitted secondary to CHF exacerbation with renal failure. Labs reviewed. Improvement in creatinine. ESR and CRP are elevated. Rheumatoid factor is negative. HAMLET is pending. Positive hepatitis C screen. CHF exacerbation Chronic cardiomyopathy, . Improved. Defibrillator present. - Continue diuresis - Continue Bumex - Continue Coreg - Continue Entresto Acute kidney failure on chronic kidney disease Etiology of her renal disease could strictly be related to cardiorenal syndrome but may also represent nephrotic syndrome or a combination. S/p AVF placement on 09/09. - Avoid nephrotoxins - Follow urine output - Hemodialysis per nephrology. Diabetes mellitus type 2 Diet controlled. - Follow blood sugars. - Continue diabetic diet. Hypertension - Continue Coreg. - As needed hydralazine. Bronchitis Acute respiratory distress Reactive airway Improving - Continue Rocephin - Continue azithromycin - Pulmonology following - Continue to wean IV steroids. PPx: Heparin Discharge Planning Will need outpt dialysis set up Brannon Falcon DO Sep 09, 2017 15:59
[2017-09-09 16:00] VITALS: BP 149/88; PULSE 74; RESP 20; TEMP 97.4; O2SAT 95
--- NOTE | 2017-09-09 18:46 | HHI.PR ---
Subjective Remarks She is doing better . better. Has a Vascath and was dialyzed. Had AV Fistula done. Off O2 . On Antibiotics, Zithro and Rocephin Objective Vital Signs Date Time Temp Pulse Resp B/P (MAP) Pulse Ox O2 Delivery O2 Flow Rate FiO2 09/09/17 16:00 97.4 74 20 149/88 (108) 95 09/09/17 15:35 16 09/09/17 14:45 97.7 75 14 144/93 (110) 100 Room Air 09/09/17 14:30 86 14 138/93 (108) 99 Nasal Cannula 2 09/09/17 14:28 97.7 70 14 118/76 (90) 96 Nasal Cannula 2 09/09/17 09:07 14 09/09/17 08:58 16 09/09/17 08:00 97.8 75 20 133/82 (99) 97 09/09/17 08:00 84 09/09/17 04:00 97.9 72 18 122/77 (92) 96 09/09/17 00:00 97.3 72 18 127/72 (90) 96 09/08/17 22:00 97 21 09/08/17 20:10 101 09/08/17 20:00 97.8 91 18 135/87 (103) 94 I/O 09/08/17 09/08/17 09/08/17 09/09/17 09/09/17 09/09/17 07:00 15:00 23:00 07:00 15:00 23:00 Intake Total 0 ml 730 ml 100 ml 450 ml Output Total 3030 ml Balance 0 ml 730 ml 100 ml -2580 ml Intake Oral 0 ml 480 ml 0 ml IV Total 250 ml 100 ml Other 450 ml Hemodialysis 3000 ml Estimated Blood Loss 30 ml # Voids 3 5 2 # Bowel Movements 0 1 0 Result Diagram: 09/08/17 0950 09/08/17 0950 Objective Remarks GENERAL: This averagely built, young, white female is alert and anxious. HEENT: Head normocephalic. Pupils are reactive and equal. Tongue is moist. Throat is injected. Nasal mucosa is clear. NECK: Supple. No bruits. No venous distension. No thyromegaly. CHEST: Distant breath sounds with occ expiratory wheezes bilaterally. There are no crackles on either side. HEART: Heart sounds are regular. S1 and S2. No murmur. ABDOMEN: Soft, protuberant with mild epigastric tenderness. No organomegaly. EXTREMITIES: Min edema. Pigmentation of the skin of the lower extremities. No calf tenderness. NEUROLOGIC: Reflexes are 1+ with no gross motor or sensory deficits. Cranial nerves grossly intact. RECTAL: Exam is deferred. Assessment and Plan Assessment and Plan IMPRESSION 1. Acute bronchitis with possible early pneumonia. 2. cardiomyopathy. 3. Chronic kidney disease stage IV. 4. Diabetes mellitus. 5. Hypertension. Plan; 1. D/C IV Zithromax 2. Nebs tid Duoneb. 3. Dialysis as Planned. 4. CXR in am 5. CBC, BMP. Yeni Nguyen MD Sep 09, 2017 18:46
[2017-09-09 19:01] LABS: AUTOMATED NEUTROPHIL # 10.2 TH/MM3 (1.8-7.7); BASOPHIL % 0.1 % (0.0-2.0); HEMATOCRIT 36.4 % (35.0-46.0); HEMO FLAGS DIFF FINAL; LYMPH % 6.1 % (9.0-44.0); LYMPHOCYTE # 0.7 TH/MM3 (1.0-4.8); MEAN CELL VOLUME 85.5 FL (80.0-100.0); MEAN CORPUSCULAR HEMOGLOBIN 27.7 PG (27.0-34.0); MEAN CORPUSCULAR HGB CONC 32.4 % (32.0-36.0); MONO % 8.4 % (0.0-8.0); NEUT % 85.4 % (16.0-70.0); PLATELET COUNT 196 TH/MM3 (150-450); RED BLOOD COUNT 4.26 MIL/MM3 (4.00-5.30); RED CELL DISTRIBUTION WIDTH 15.9 % (11.6-17.2); WHITE BLOOD COUNT 11.9 TH/MM3 (4.0-11.0)
[2017-09-09 19:10] LABS: ALT (GPT) 20 U/L (10-53); ANION GAP 11 MEQ/L (5-15); AST (GOT) 10 U/L (15-37); BICARBONATE 26.9 MEQ/L (21.0-32.0); BLOOD UREA NITROGEN 45 MG/DL (7-18); CHLORIDE 96 MEQ/L (98-107); GLOMERULAR FILTRATION RATE 21 ML/MIN (>89); POTASSIUM 3.9 MEQ/L (3.5-5.1); SODIUM (NA) 134 MEQ/L (136-145)
[2017-09-09 19:12] LABS: APTT (PATIENT) 22.4 SEC (24.3-30.1); INTERNATIONAL NORMALIZED RATIO 1.1 RATIO
[2017-09-09 19:14] LABS: ALKALINE PHOSPHATASE 95 U/L (45-117); TOTAL BILIRUBIN ADULT 0.3 MG/DL (0.2-1.0)
[2017-09-09 20:00] VITALS: BP 142/83; PULSE 80; RESP 18; TEMP 98.3; O2SAT 95
[2017-09-09] MEDS ORDERED: methylPREDNISolone SOD SUCC 40 MG/1 ML VIAL IV SCH (21:00)
[2017-09-09] MEDS: DOCUSATE SODIUM 50 MG/SENNA 8.6 MG TAB PO SCH (21:00)
[2017-09-09] MEDS: cefTRIAXone INJ 1,000 MG in SODIUM CHLORIDE 0.9% INJ 100 ML IV SCH (21:00)
[2017-09-10] VITALS (8 sets, daily range): BP systolic 115–151; BP diastolic 65–81; PULSE 70–83; RESP 17–20; TEMP 97.3–98.7; O2SAT 95–98
[2017-09-10] MEDS: HYDROmorphone HCL 2 MG TAB PO PRN ×6 (01:36→20:49)
[2017-09-10] MEDS: ZOLPIDEM TARTRATE 5 MG TAB PO PRN ×2 (01:36→21:15)
[2017-09-10] MEDS: HEPARIN SODIUM - SQ 10,000 UNITS/ML VIAL SQ SCH ×2 (05:13→16:47)
[2017-09-10] MEDS: RESP: ALBUTEROL 2.5 MG/IPRATROPIUM 0.5 MG NEB (PRN) NEB (05:21)
[2017-09-10 05:34] LABS: HEMATOCRIT 38.2 % (35.0-46.0); MEAN CELL VOLUME 85.3 FL (80.0-100.0); MEAN CORPUSCULAR HEMOGLOBIN 27.8 PG (27.0-34.0); MEAN CORPUSCULAR HGB CONC 32.6 % (32.0-36.0); PLATELET COUNT 93 TH/MM3 (150-450); RED BLOOD COUNT 4.48 MIL/MM3 (4.00-5.30); WHITE BLOOD COUNT 9.8 TH/MM3 (4.0-11.0)
[2017-09-10 05:44] LABS: REVIEW FLAG FINAL
[2017-09-10 05:47] LABS: BICARBONATE 24.7 MEQ/L (21.0-32.0); MAGNESIUM 1.9 MG/DL (1.5-2.5); POTASSIUM 4.9 MEQ/L (3.5-5.1)
--- NOTE | 2017-09-10 06:28 | RADRPT ---
EXAM DATE/TIME: 09/10/2017 05:57 [facility] COMPARISON: CHEST SINGLE AP, September 03, 2017, 9:00. INDICATIONS : Short of breath, weakness, evaluate infiltrate MEDICAL HISTORY : Congestive heart failure. Renal failure, chronic. pancreatitis, cardiomyopathy, diabetes SURGICAL HISTORY : Pacemaker. section. Tubal ligation. Tonsillectomy.Pacemaker. Cholecystectomy.Cardiac cath. I [place], fistula ENCOUNTER: Subsequent ACUITY: 1 week PAIN SCORE: 0/10 LOCATION: Bilateral chest FINDINGS: No infiltrate, effusion or pneumothorax demonstrated. Heart size stable, upper limits of normal to mildly enlarged. Cardiac pacer/defibrillator again noted . Right IJ central venous double-lumen catheter now present, tip in the right atrium. CONCLUSION: 1. New right internal jugular central venous catheter with tip in the right atrium. 2. No infiltrate, effusion or pneumothorax. 3. Mild stable cardiomegaly. Josef Rubin MD on September 10, 2017 at 6:25 Board Certified Radiologist. This report was verified electronically.
--- NOTE | 2017-09-10 07:40 | MP ---
cc: MONROE RODRIGUEZ MD DATE OF SURGERY 09/09/2017 PREOPERATIVE DIAGNOSIS End-stage renal disease. Need for dialysis access. POSTOPERATIVE DIAGNOSIS End-stage renal disease. Need for dialysis access. PROCEDURE Left upper extremity access creation (first Stage brachiobasilic). ATTENDING SURGEON Monroe Rodriguez MD RESIDENT SURGEON None. ANESTHESIA General. INDICATIONS Ms. Jones is a 27-year-old female who is obese and has a nonischemic cardiomyopathy. She is on dialysis and is taken to the operating room for surgical access creation. DESCRIPTION OF PROCEDURE Informed consent was obtained from the patient. She was taken to the operating room, placed supine on the operating room table. An appropriate time-out was taken to ensure the patient's identity, the operative site and planned procedure. The administration of 1 gram of vancomycin was initiated prior to skin incision and will be discontinued after a single preoperative dose. Vancomycin was chosen because of the patient's end-stage renal disease. Everyone in the room agreed with the time-out and we proceeded. Her left arm was prepped and draped and an incision made over the distal aspect of the upper arm, carried down to the subcutaneous tissue with electrocautery. The basilic vein was identified and dissected free. Side branches were ligated with 3-0 silk. The vein was marked for orientation, clamped distally and transected. The distal limb was oversewn with 3-0 silk. The brachial artery was identified on the medial aspect of the incision and dissected free for several cm. The patient was systemically heparinized. Proximal and distal control of the brachial artery were obtained with profunda clamps and a longitudinal arteriotomy was made with an 11 blade, extended with Hang scissors. The vein was spatulated and sewn end-to-side with running 6-0 Prolene suture. At the completion it was flushed and noted to be hemostatic. There was an audible thrill in the fistula and a Doppler signal at the wrist. The heparin was reversed with protamine. The wound was infiltrated with Marcaine, made hemostatic and closed with 2-0 Polysorb, 3-0 Polysorb and 4-0 Monocryl. The sponge and needle counts were correct at the end of the case. I was present and scrubbed for the entire procedure. MD TOREY Goodwin/SSB /5:52 PM /7:37 AM
[2017-09-10] MEDS: DOCUSATE SODIUM 50 MG/SENNA 8.6 MG TAB PO SCH ×2 (08:32→08:39)
[2017-09-10] MEDS: SACUBITRIL/VALSARTAN 49 MG-51 MG TAB PO SCH ×2 (08:32→20:47)
[2017-09-10] MEDS: CARVEDILOL 12.5 MG TAB PO SCH ×2 (08:33→20:56)
[2017-09-10] MEDS: BUMETANIDE INJ 1 MG/4 ML VIAL IV PUSH SCH ×2 (08:34→16:46)
[2017-09-10] MEDS: SODIUM CHLORIDE 0.9% FLUSH 10 ML FLUSH IV FLUSH SCH ×2 (08:36→20:48)
--- NOTE | 2017-09-10 08:52 | HHI.NPPN ---
Subjective History of Present Illness 27-year-old female known to me from before with past medical history of nonischemic cardiomyopathy with very low ejection fraction, history of chronic kidney disease with advanced renal failure, hypertension, diabetes mellitus, who came to the hospital with complaint of cough and shortness of breath. I was called to see the patient because of elevated BUN and creatinine. The patient has known history of chronic kidney disease. Additional Remarks Patient is alert, feeling better, no SOB, mild pain at AVF site. Review of Systems General Constitutional: Fatigue Respiratory Lungs: SOB, Cough, Sputum, Wheeze Cardiovascular Cardiac: CONNORS Objective Data Data Vital Signs Date Time Temp Pulse Resp B/P (MAP) Pulse Ox O2 Delivery O2 Flow Rate FiO2 09/10/17 08:31 18 09/10/17 08:00 97.8 77 18 119/72 (88) 95 09/10/17 04:00 98.0 75 18 141/81 (101) 95 09/10/17 00:00 98.7 79 18 132/74 (93) 97 09/10/17 00:00 18 09/09/17 20:00 98.3 80 18 142/83 (102) 95 09/09/17 20:00 80 09/09/17 19:05 16 09/09/17 16:00 97.4 74 20 149/88 (108) 95 09/09/17 14:45 97.7 75 14 144/93 (110) 100 Room Air 09/09/17 14:30 86 14 138/93 (108) 99 Nasal Cannula 2 09/09/17 14:28 97.7 70 14 118/76 (90) 96 Nasal Cannula 2 09/09/17 09:07 14 09/09/17 08:58 16 -: 09/10/17 0452 09/10/17 0452 Physical Exam General Appearance: No Acute Distress, Comfortable Eyes Eye Exam: Pupils Equal Throat Throat Exam: Oral Mucosa [place] & Moist Neck Neck Exam: Neck Supple Pulmonary Resp Exam: No Distress, Rhonchi, Sputum, Decreased Bases, Diminished Breath Sounds Cardiology CV Exam: Regular, Normal Sinus Rhythm Gastrointestinal/Abdomen GI Exam: Soft, Non-Tender, Bowel Sounds Present Extremeties Extremities Exam: Trace Edema Neurologic Neuro Exam: Alert, Awake, Oriented Psychiatric Psych Exam: Appropriate Responses Assessment/Plan Assessment Summary: CHF, Hypertension, CKD Stage V Problem List: (1) Proteinuria ICD Codes: R80.9 - Proteinuria, unspecified Status: Acute (2) Volume overload ICD Codes: E87.70 - Fluid overload, unspecified Status: Chronic (3) Diabetes type 2, controlled ICD Codes: E11.9 - Type 2 diabetes mellitus without complications Status: Chronic (4) HTN (hypertension) ICD Codes: I10 - Essential (primary) hypertension Status: Acute (5) Systolic CHF, chronic ICD Codes: I50.22 - Chronic systolic (congestive) heart failure Status: Acute (6) Stage 4 chronic kidney disease ICD Codes: N18.4 - Chronic kidney disease, stage 4 (severe) Status: Chronic Plan Patient has advance stage 4 chronic kidney disease reached stage 5. Started on HD Saturday via tunneled catheter. Evaluated by PD nurse, not suitable for PD due to home condition. Patient had HD done yesterday. AVF done, has weak Bruit, will wait for vascular follow up. Out patient HD set up at [facility], at 6.45 AM,to start on Saturday this week. HD in AM. Jeromy Allen MD Sep 10, 2017 08:52
[2017-09-10] MEDS: INSULIN ASPART SUPPLEMENTAL SCALE SQ SCH ×4 (09:06→20:51)
--- NOTE | 2017-09-10 09:06 | PD.VS.PN ---
Subjective POD #: 1 Procedure(s): L brachiobasilic AVF Subjective/Hospital Course c/o incisional pain but hand ok Objective Vitals/I&O Date Time Temp Pulse Resp B/P (MAP) Pulse Ox O2 Delivery O2 Flow Rate FiO2 09/10/17 08:31 18 09/10/17 08:00 97.8 77 18 119/72 (88) 95 09/10/17 04:00 98.0 75 18 141/81 (101) 95 09/10/17 00:00 98.7 79 18 132/74 (93) 97 09/10/17 00:00 18 09/09/17 20:00 98.3 80 18 142/83 (102) 95 09/09/17 20:00 80 09/09/17 19:05 16 09/09/17 16:00 97.4 74 20 149/88 (108) 95 09/09/17 14:45 97.7 75 14 144/93 (110) 100 Room Air 09/09/17 14:30 86 14 138/93 (108) 99 Nasal Cannula 2 09/09/17 14:28 97.7 70 14 118/76 (90) 96 Nasal Cannula 2 09/09/17 09:07 14 09/10/17 09/10/17 09/10/17 07:00 15:00 23:00 Intake Total 720 ml Output Total 5 ml Balance 715 ml Exam: L UE with incision with mild ecchymoses difficult to appreciate thrill c/w small vein intraop hand ok with good clipper counters strength Laboratory Laboratory Tests Test 09/09/17 17:50 09/10/17 04:52 White Blood Count 11.9 9.8 Red Blood Count 4.26 4.48 Hemoglobin 11.8 12.5 Hematocrit 36.4 38.2 Mean Corpuscular Volume 85.5 85.3 Mean Corpuscular Hemoglobin 27.7 27.8 Mean Corpuscular Hemoglobin Concent 32.4 32.6 Red Cell Distribution Width 15.9 16.0 Platelet Count 196 93 Mean Platelet Volume 9.8 9.6 Neutrophils (%) (Auto) 85.4 Lymphocytes (%) (Auto) 6.1 Monocytes (%) (Auto) 8.4 Eosinophils (%) (Auto) 0.0 Basophils (%) (Auto) 0.1 Neutrophils # (Auto) 10.2 Lymphocytes # (Auto) 0.7 Monocytes # (Auto) 1.0 Eosinophils # (Auto) 0.0 Basophils # (Auto) 0.0 CBC Comment DIFF FINAL Differential Comment Prothrombin Time 12.0 Prothromb Time International Ratio 1.1 Activated Partial Thromboplast Time 22.4 Blood Urea Nitrogen 45 61 Creatinine 2.72 2.91 Random Glucose 302 115 Total Protein 6.5 Albumin 2.6 Calcium Level 8.3 8.3 Alkaline Phosphatase 95 Aspartate Amino Transf (AST/SGOT) 10 Alanine Aminotransferase (ALT/SGPT) 20 Total Bilirubin 0.3 Sodium Level 134 134 Potassium Level 3.9 4.9 Chloride Level 96 99 Carbon Dioxide Level 26.9 24.7 Anion Gap 11 10 Estimat Glomerular Filtration Rate 21 19 Magnesium Level 1.9 Date/Time Source Procedure Growth Status 09/05/17 21:35 Urine Clean Catch Streptococcus pneumoniae Antigen (M - Final PRESUMPTIVE NEGATIVE FOR STREPTOCOCCU... Complete Assessment and Plan Assessment: (1) Dyspnea Status: Acute (2) Stage 4 chronic kidney disease Status: Chronic Plan POD#1 s/p L UE AVF Will arrange f/u in my clinic in 2-3 weeks. Ok to d/c from vascular surgery standpoint anytime Discharge Planning Plan for L brachiobasilic AVF Monroe Rodriguez MD Sep 10, 2017 09:06
--- NOTE | 2017-09-10 12:04 | HHI.PR ---
Subjective Remarks The patient was resting comfortably by the window. She said she had some pain but the pain medication was working. She is looking forward to going home tomorrow. No acute concerns. Discussed with nursing. Objective Vitals Vital Signs Date Time Temp Pulse Resp B/P (MAP) Pulse Ox O2 Delivery O2 Flow Rate FiO2 09/10/17 08:31 18 09/10/17 08:00 97.8 77 18 119/72 (88) 95 09/10/17 04:00 98.0 75 18 141/81 (101) 95 09/10/17 00:00 98.7 79 18 132/74 (93) 97 09/10/17 00:00 18 09/09/17 20:00 98.3 80 18 142/83 (102) 95 09/09/17 20:00 80 09/09/17 19:05 16 09/09/17 16:00 97.4 74 20 149/88 (108) 95 09/09/17 14:45 97.7 75 14 144/93 (110) 100 Room Air 09/09/17 14:30 86 14 138/93 (108) 99 Nasal Cannula 2 09/09/17 14:28 97.7 70 14 118/76 (90) 96 Nasal Cannula 2 I/O 09/09/17 09/09/17 09/09/17 09/10/17 09/10/17 09/10/17 07:00 15:00 23:00 07:00 15:00 23:00 Intake Total 100 ml 450 ml 960 ml 720 ml Output Total 3030 ml 5 ml Balance 100 ml -2580 ml 960 ml 715 ml Intake Oral 0 ml 960 ml 720 ml IV Total 100 ml Other 450 ml Output Urine Total 5 ml Hemodialysis 3000 ml Estimated Blood Loss 30 ml # Voids 2 2 # Bowel Movements 0 0 1 Result Diagram: 09/10/17 0452 09/10/17 0452 Imaging Last Impressions Chest X-Ray 09/10/17 0600 Signed Impressions: Service Date/Time: Sunday, September 10, 2017 05:57 - CONCLUSION: 1. New right internal jugular central venous catheter with tip in the right atrium. 2. No infiltrate, effusion or pneumothorax. 3. Mild stable cardiomegaly. Josef Rubin MD Catheter Placement X-Ray 09/06/17 0000 Signed Impressions: Service Date/Time: Wednesday, September 06, 2017 09:43 - CONCLUSION: The patient has a chronically occluded right internal jugular vein. A pacing device is seen on the left. A right external jugular vein perm catheter was placed. The catheter functions well and is ready for use. Uli Bean Jr., MD Upper Extremity Ultrasound 09/05/17 0000 Signed Impressions: Service Date/Time: August 22:12 - CONCLUSION: No evidence of deep venous thrombosis left upper extremity. Uli Lord MD Head CT 09/03/17 0000 Signed Impressions: Service Date/Time: Sunday, September 03, 2017 08:30 - CONCLUSION: Negative noncontrast head CT. Josef Garcia MD Carotid Artery Ultrasound 09/03/17 0000 Signed Impressions: Service Date/Time: Sunday, September 03, 2017 17:04 - CONCLUSION: Normal examination. Josef Giordano MD Objective Remarks GENERAL: NAD, A&Ox3 HEAD: Normocephalic. NECK: Supple, trachea midline. No lymphadenopathy. EYES: No scleral icterus. No injection or drainage. CARDIOVASCULAR: Regular rate and rhythm without murmurs, gallops, or rubs. RESPIRATORY: Breath sounds equal bilaterally. Mild rhonchi. GASTROINTESTINAL: Abdomen soft, non-tender, nondistended. MUSCULOSKELETAL: No cyanosis, or edema. SKIN: Warm and dry. NEURO: No focal neurological deficits. Procedures AVF placement 09/09/17 Medications and IVs Current Medications Medications (Trade) Dose Ordered Sig/Arnold Route Start Time Stop Time Status Last Admin (NS Flush) 2 ml BID IV FLUSH 09/03/17 21:00 09/10/17 08:36 (NS Flush) 2 ml UNSCH PRN IV FLUSH 09/03/17 11:30 09/08/17 00:29 (Coreg) 25 mg Q12HR PO 09/03/17 21:00 09/10/17 08:33 (Bumex Inj) 1 mg BID@09,18 IV PUSH 09/03/17 21:00 09/10/17 08:34 (Robitussin Dm 200-20 Mg/10 ml Liq) 10 ml Q4H PRN PO 09/03/17 16:15 09/09/17 17:37 (Duoneb Neb) 1 ampule Q4HR NEB PRN NEB 09/03/17 16:30 09/10/17 05:21 (Compazine Inj) 5 mg Q6H PRN IV PUSH 09/03/17 20:15 09/07/17 21:49 (Heparin Inj) 5,000 units Q12H SQ 09/05/17 18:00 09/10/17 05:13 (Apresoline) 10 mg Q12H PRN PO 09/05/17 13:00 Sodium Chloride 1,000 ml @ 0 mls/hr Q0M PRN OTHER 09/05/17 18:43 09/06/17 14:57 (Heparin Inj) 8,000 units UNSCH PRN IV FLUSH 09/05/17 18:45 Sodium Chloride 1,000 ml @ 200 mls/hr Q5H PRN IV 09/05/17 18:43 Sodium Chloride 1,000 ml @ 0 mls/hr Q0M PRN OTHER 09/05/17 18:43 (Mannitol Inj) 12.5 gm UNSCH PRN IV 09/05/17 18:45 Albumin Human 100 ml @ 60 mls/hr UNSCH PRN IV 09/05/17 18:45 (NS Flush) 5 ml UNSCH PRN IV FLUSH 09/05/17 18:45 (Heparin Inj) UNSCH PRN .XX 09/05/17 18:45 09/07/17 11:46 (Gentamicin (Dialysis) Inj) 20 mg UNSCH PRN OTHER 09/05/17 18:45 09/09/17 12:22 (Zofran Inj) 4 mg UNSCH PRN IV PUSH 09/05/17 18:45 09/05/17 22:39 (Tylenol) 650 mg UNSCH PRN PO 09/05/17 18:45 (Benadryl) 25 mg UNSCH PRN PO 09/05/17 18:45 (Nitrostat Sl) 0.4 mg UNSCH PRN SL 09/05/17 18:45 (Catapres) 0.1 mg UNSCH PRN PO 09/05/17 18:45 (Epogen Inj) 4,000 units UNSCH PRN IV PUSH 09/05/17 18:45 09/09/17 12:22 (Gelfoam 12 Mm/7 Mm Top) 1 foam UNSCH PRN TOP 09/05/17 18:45 Ceftriaxone Sodium 1000 mg/ Sodium Chloride 100 ml @ 200 mls/hr Q24H IV 09/05/17 21:00 09/09/17 21:00 (Entresto 49-51 Mg) 1 tab BID PO 09/06/17 09:00 09/10/17 08:32 (NS Flush) UNSCH PRN IV FLUSH 09/06/17 11:15 (Heparin Inj) UNSCH PRN IV FLUSH 09/06/17 11:15 (D50w (Vial) Inj) 50 ml UNSCH PRN IV PUSH 09/06/17 12:00 (Glucagon Inj) 1 mg UNSCH PRN OTHER 09/06/17 12:00 (NovoLOG SUPPLEMENTAL SCALE) 1 ACHS SLIDING SCALE SQ 09/06/17 12:00 09/10/17 09:06 (Ambien) 5 mg HS PRN PO 09/07/17 17:00 09/10/17 01:36 (Blistex Lip [place]) 1 applic UNSCH PRN TOPICAL 09/08/17 15:30 09/09/17 02:42 (Roxicodone) 5 mg Q4H PRN PO 09/09/17 14:15 (Dilaudid) 2 mg Q4H PRN PO 09/09/17 14:15 09/10/17 08:33 (Morphine Inj) 2 mg Q1H PRN IV PUSH 09/09/17 14:15 09/09/17 23:03 ([place]-Colace) 1 tab BID PO 09/09/17 21:00 Miscellaneous Information ALL NURSING DEPARTME... UNSCH PRN .XX 09/09/17 14:27 09/10/17 14:26 A/P Problem List: (1) Chronic kidney disease ICD Code: N18.9 - Chronic kidney disease, unspecified Status: Chronic (2) Cardiomyopathy ICD Code: I42.9 - Cardiomyopathy, unspecified Status: Chronic (3) DM (diabetes mellitus) ICD Code: E11.9 - Type 2 diabetes mellitus without complications Status: Acute (4) HTN (hypertension) ICD Code: I10 - Essential (primary) hypertension Status: Acute (5) Bronchitis ICD Code: J40 - Bronchitis, not specified as acute or chronic Status: Acute Assessment and Plan 27-year-old female with chronic related CHF admitted secondary to CHF exacerbation with renal failure. Labs reviewed. Improvement in creatinine. ESR and CRP are elevated. Rheumatoid factor is negative. Positive hepatitis C screen. CHF exacerbation Chronic cardiomyopathy, . Improved. Defibrillator present. - Continue diuresis with IV Bumex. - Continue dialysis. - Continue Coreg and Entresto. Acute kidney failure on chronic kidney disease Etiology of her renal disease could strictly be related to cardiorenal syndrome but may also represent nephrotic syndrome or a combination. S/p AVF placement on 09/09. - Avoid nephrotoxins. - Follow urine output. - Hemodialysis per nephrology. Has been set-up for Saturday as an outpt. Diabetes mellitus type 2 Diet controlled. - Follow blood sugars. - Continue diabetic diet. Hypertension - Continue Coreg. - As needed hydralazine. Bronchitis/ Acute respiratory distress/ Reactive airway Improving. Pulmonology consult appreciated. - Continue Rocephin and azithromycin. - Pulmonology follow-up. - d/c steroids. PPx: Heparin Discharge Planning Anticipate discharge home following dialysis tomorrow Brnanon Falcon DO Sep 10, 2017 12:04
--- NOTE | 2017-09-10 18:13 | HHI.PR ---
Subjective Remarks Was dialyzed. Has a Vascath and feels OK. Had AV Fistula done. Off O2 . On Antibiotics, Zithro and Rocephin Objective Vital Signs Date Time Temp Pulse Resp B/P (MAP) Pulse Ox O2 Delivery O2 Flow Rate FiO2 09/10/17 16:00 97.8 77 20 151/75 (100) 98 09/10/17 15:27 70 09/10/17 13:41 17 09/10/17 12:00 97.3 72 20 115/65 (82) 96 09/10/17 08:00 70 09/10/17 08:00 97.8 77 18 119/72 (88) 95 09/10/17 04:00 98.0 75 18 141/81 (101) 95 09/10/17 00:00 98.7 79 18 132/74 (93) 97 09/10/17 00:00 18 09/09/17 20:00 98.3 80 18 142/83 (102) 95 09/09/17 20:00 80 09/09/17 19:05 16 I/O 09/09/17 09/09/17 09/09/17 09/10/17 09/10/17 09/10/17 07:00 15:00 23:00 07:00 15:00 23:00 Intake Total 100 ml 450 ml 960 ml 720 ml Output Total 3030 ml 5 ml Balance 100 ml -2580 ml 960 ml 715 ml Intake Oral 0 ml 960 ml 720 ml IV Total 100 ml Other 450 ml Output Urine Total 5 ml Hemodialysis 3000 ml Estimated Blood Loss 30 ml # Voids 2 2 # Bowel Movements 0 0 1 Result Diagram: 09/10/1745109/10/17451 Objective Remarks GENERAL: This averagely built, young, white female is alert and anxious. HEENT: Head normocephalic. Pupils are reactive and equal. Tongue is moist. Throat is clear. Nasal mucosa is clear. NECK: Supple. No bruits. No venous distension. No thyromegaly. CHEST: Distant breath sounds with occ expiratory wheezes bilaterally. There are no crackles on either side. HEART: Heart sounds are regular. S1 and S2. No murmur. ABDOMEN: Soft, protuberant with no tenderness. No organomegaly. EXTREMITIES: Min edema. Pigmentation of the skin of the lower extremities. No calf tenderness. NEUROLOGIC: Reflexes are 1+ with no gross motor or sensory deficits. Cranial nerves grossly intact. RECTAL: Exam is deferred. Assessment and Plan Assessment and Plan IMPRESSION 1. Acute bronchitis with possible early pneumonia. 2. cardiomyopathy. 3. Chronic kidney disease stage IV. 4. Diabetes mellitus. 5. Hypertension. Plan; 1. D/C IV Rocephin 2. D/C Nebs and add Ventolin HFA , 2 puffs tid prn 3. Symbicort 80/4.5 mcg , 2puffs bid 4. Add Ceftin 250 mg bid X 5 days 5. Home anytime . Will see as OP in 2 weeks Yeni Nguyen MD Sep 10, 2017 18:13
[2017-09-10] MEDS ORDERED: ALBUTEROL SULFATE 90 MCG/ACT HFA 8 GM INHALER INH PRN (18:15)
[2017-09-10] MEDS: CEFUROXIME AXETIL 250 MG TAB PO SCH (20:56)
[2017-09-11] VITALS: BP 121/71; PULSE 77; RESP 17; TEMP 97.4; O2SAT 96
[2017-09-11] MEDS: HYDROmorphone HCL 2 MG TAB PO PRN ×4 (01:46→15:23)
[2017-09-11 04:00] VITALS: BP 128/87; PULSE 82; RESP 17; TEMP 98.1; O2SAT 98
[2017-09-11] MEDS: HEPARIN SODIUM - SQ 10,000 UNITS/ML VIAL SQ SCH (05:45)
[2017-09-11] MEDS: CEFUROXIME AXETIL 250 MG TAB PO SCH (07:56)
[2017-09-11] MEDS: SACUBITRIL/VALSARTAN 49 MG-51 MG TAB PO SCH (07:56)
[2017-09-11] MEDS: CARVEDILOL 12.5 MG TAB PO SCH (07:56)
[2017-09-11] MEDS: BUMETANIDE INJ 1 MG/4 ML VIAL IV PUSH SCH (07:57)
[2017-09-11] MEDS: SODIUM CHLORIDE 0.9% FLUSH 10 ML FLUSH IV FLUSH SCH (07:57)
[2017-09-11 08:00] VITALS: BP 126/88; PULSE 78; RESP 20; TEMP 97.3; O2SAT 97
[2017-09-11] MEDS: INSULIN ASPART SUPPLEMENTAL SCALE SQ SCH ×2 (08:00→10:41)
[2017-09-11] MEDS: DOCUSATE SODIUM 50 MG/SENNA 8.6 MG TAB PO SCH (08:00)
[2017-09-11] MEDS ORDERED: ALBUAER3 INH (11:54)
[2017-09-11] MEDS ORDERED: DILA2TAB4 PO (11:54)
[2017-09-11] MEDS ORDERED: SACU1TAB7 PO (11:54)
[2017-09-11] MEDS ORDERED: LORA-392 PO (11:54)
[2017-09-11] MEDS ORDERED: CEFU1TAB18 PO (11:54)
--- NOTE | 2017-09-11 11:58 | HHI.DCPOC ---
Discharge Care Plan Diagnosis: (1) Hepatitis C (2) AVF (arteriovenous fistula) (3) Cardiorenal syndrome (4) Non-ischemic cardiomyopathy (5) Bronchitis (6) Dyspnea (7) DM (diabetes mellitus) (8) Chronic kidney disease (9) Fluid overload (10) Thrombocytopenia Goals to Promote Your Health * To prevent worsening of your condition and complications * To maintain your health at the optimal level Directions to Meet Your Goals Take your medications as prescribed Follow your dietary instruction Follow activity as directed Keep your appointments as scheduled Take your immunizations and boosters as scheduled If your symptoms worsen call your PCP, if no PCP go to Urgent Care Center or Emergency Room Smoking is Dangerous to Your Health. Avoid second hand smoke Call the 24-hour hour crisis hotline for domestic abuse at Brannon Falcon DO Sep 11, 2017 11:58
[2017-09-11 12:00] VITALS: BP 124/78; PULSE 77; RESP 20; TEMP 97.9; O2SAT 98
--- NOTE | 2017-09-11 12:06 | HHI.DS ---
Discharge Summary Admission Date Sep 03, 2017 at 11:22 Discharge Date: Sep 11, 2017 Admitting Diagnosis chf exacerbation (1) Chronic kidney disease ICD Code: N18.9 - Chronic kidney disease, unspecified Status: Chronic (2) Cardiomyopathy ICD Code: I42.9 - Cardiomyopathy, unspecified Diagnosis: Principal Status: Chronic (3) DM (diabetes mellitus) ICD Code: E11.9 - Type 2 diabetes mellitus without complications Status: Acute (4) HTN (hypertension) ICD Code: I10 - Essential (primary) hypertension Status: Acute (5) Bronchitis ICD Code: J40 - Bronchitis, not specified as acute or chronic Status: Acute (6) Hepatitis C ICD Code: B19.20 - Unspecified viral hepatitis C without hepatic coma (7) AVF (arteriovenous fistula) ICD Code: I77.0 - Arteriovenous fistula, acquired (8) Fluid overload ICD Code: E87.70 - Fluid overload, unspecified Diagnosis: Principal Status: Acute (9) Cardiorenal syndrome ICD Code: I13.10 - Hypertensive heart and chronic kidney disease without heart failure, with stage 1 through stage 4 chronic kidney disease, or unspecified chronic kidney disease Diagnosis: Principal Status: Acute Procedures AVF placement 09/09/17 Brief History - From Admission coughed all night long was short of breath could not even walk to bathroom have been sitting on recliner all night long took inahalors was prescribed inahlors 2 weeks ago then mom and her called ems was in retirement for 90 days - got out 05/11- 07/22/17 then retirement is full of black mold worsening since then post cardiomyopathy - kid is now 4 yo last echo in nov 15% =60% ??? have been seeing transplant doc in [place] has [facility] last admission - d/c on 08/16/17 has freq heart failure admissions to hospital even before the retirement time - for chf reports syncope 2 nights ago while standing outside to get fresh air does not have any premonitory symptoms last aicd check was 08/05 denies firing of it was having trouble with med ride reports compliance takes under 44ounces a day- said about 32ounce vomited once today am no nausea/ no no fever/ no blood / no urinary CBC/BMP: 09/10/17 0452 09/10/17 0452 Significant Findings Laboratory Tests Test 09/09/17 17:50 09/10/17 04:52 White Blood Count 11.9 TH/MM3 (4.0-11.0) Neutrophils (%) (Auto) 85.4 % (16.0-70.0) Lymphocytes (%) (Auto) 6.1 % (9.0-44.0) Monocytes (%) (Auto) 8.4 % (0.0-8.0) Neutrophils # (Auto) 10.2 TH/MM3 (1.8-7.7) Lymphocytes # (Auto) 0.7 TH/MM3 (1.0-4.8) Monocytes # (Auto) 1.0 TH/MM3 (0-0.9) Prothrombin Time 12.0 SEC (9.8-11.6) Activated Partial Thromboplast Time 22.4 SEC (24.3-30.1) Blood Urea Nitrogen 45 MG/DL (7-18) 61 MG/DL (7-18) Creatinine 2.72 MG/DL (0.50-1.00) 2.91 MG/DL (0.50-1.00) Random Glucose 302 MG/DL (74-106) 115 MG/DL (74-106) Albumin 2.6 GM/DL (3.4-5.0) Calcium Level 8.3 MG/DL (8.5-10.1) 8.3 MG/DL (8.5-10.1) Aspartate Amino Transf (AST/SGOT) 10 U/L (15-37) Sodium Level 134 MEQ/L (136-145) 134 MEQ/L (136-145) Chloride Level 96 MEQ/L (98-107) Estimat Glomerular Filtration Rate 21 ML/MIN (>89) 19 ML/MIN (>89) Platelet Count 93 TH/MM3 (150-450) Imaging Last Impressions Chest X-Ray 09/10/17 0600 Signed Impressions: Service Date/Time: Sunday, September 10, 2017 05:57 - CONCLUSION: 1. New right internal jugular central venous catheter with tip in the right atrium. 2. No infiltrate, effusion or pneumothorax. 3. Mild stable cardiomegaly. Josef Rubin MD Catheter Placement X-Ray 09/06/17 0000 Signed Impressions: Service Date/Time: Wednesday, September 06, 2017 09:43 - CONCLUSION: The patient has a chronically occluded right internal jugular vein. A pacing device is seen on the left. A right external jugular vein perm catheter was placed. The catheter functions well and is ready for use. Uli Bean Jr., MD Upper Extremity Ultrasound 09/05/17 0000 Signed Impressions: Service Date/Time: August 22:12 - CONCLUSION: No evidence of deep venous thrombosis left upper extremity. Uli Lord MD Head CT 09/03/17 0000 Signed Impressions: Service Date/Time: Sunday, September 03, 2017 08:30 - CONCLUSION: Negative noncontrast head CT. Josef Garcia MD Carotid Artery Ultrasound 09/03/17 0000 Signed Impressions: Service Date/Time: Sunday, September 03, 2017 17:04 - CONCLUSION: Normal examination. Josef Giordano MD PE at Discharge GENERAL: NAD, A&Ox3 HEAD: Normocephalic. NECK: Supple, trachea midline. No lymphadenopathy. EYES: No scleral icterus. No injection or drainage. CARDIOVASCULAR: Regular rate and rhythm without murmurs, gallops, or rubs. RESPIRATORY: Breath sounds equal bilaterally. Mild rhonchi. GASTROINTESTINAL: Abdomen soft, non-tender, nondistended. Large pannus. MUSCULOSKELETAL: Left fistula site is slightly tender to palpation. Mild edema noted. SKIN: Warm and dry. NEURO: No focal neurological deficits. Pt update on day of discharge The patient reports some increased pain and swelling at the site of her fistula. She has been ambulate him. She is looking forward to going home after dialysis. Discussed with nursing and nephrology. Hospital Course CHF exacerbation Chronic cardiomyopathy. Defibrillator present. Cardiology was consulted. She received diuresis with IV Bumex. She was continued on dialysis. She will continue her cardiac regimen including Bunex, Coreg and Entresto. She will follow up with cardiology as an outpt. Acute kidney failure on chronic kidney disease Nephrology was consulted. She received dialysis. Vascular surgery was consulted. S/p AVF placement on 09/09. Case management was consulted. Outpt dialysis was arranged. The pt will resume her home diuretic regimen and will start outpt dialysis on 09/13. She will follow up with nephrology as an outpt. Bronchitis/ Acute respiratory distress/ Reactive airway disease Pulmonology was consulted. She was started on Rocephin and azithromycin. She will complete a course of Ceftin. Steroids were discontinued. She will be discharged with Proair and Symbicort. She will follow up with pulmonology as an outpt. Pt Condition on Discharge: Stable Discharge Disposition: Discharge Home Discharge Time: > 30 minutes Discharge Instructions DIET: Follow Instructions for: Diabetic Diet, Renal Failure Diet Activities you can perform: Weight Bearing as Kulwant Follow up Referrals: Cardiology - 1 Week with Leona Cardoso MD Gastroenterology - 2 Weeks with Chanell Stevenson MD Nephrology - [address] Allen PCP Follow-up - 1 Week Pulmonology - 1 Week with Yeni Nguyen MD Vascular Surgery @ Vascular Surgery with Monroe Rodriguez MD New Medications: Albuterol 8.5 GM Inh (Proair Hfa 8.5 GM Inh) 90 Mcg/Act Aer 2 PUFF INH Q4-6H PRN for SHORTNESS OF BREATH, #1 INHALER 0 Refills 108 mcg/actuation Budesonide-Formoterol Inh (Symbicort Inh) 80-4.5 Mcg/Act Aero 2 PUFF INH Q12HR for Asthma Management, #1 INHALER 0 Refills Lorazepam (Ativan) 0.5 Mg Tab 0.5 MG PO HS PRN for ANXIETY AND/OR AGITATION, #10 TAB 0 Refills Cefuroxime (Ceftin) 250 Mg Tab 250 MG PO Q12HR for Infection for 4 Days, TAB Hydromorphone (Dilaudid) 2 Mg Tab 2 MG PO Q6HR PRN for PAIN SCALE 1 TO 10, #18 TAB Sacubitril-Valsartan (Entresto) 49-51 Mg Tab 1 TAB PO BID for Heart, #60 TAB Continued Medications: Acetaminophen (Tylenol) 325 Mg Tab 650 MG PO Q4H PRN for FEVER, TAB 0 Refills Bumetanide (Bumetanide) 2 Mg Tab 4 MG PO BID, TAB 0 Refills Carvedilol (Coreg) 12.5 Mg Tab 25 MG PO Q12HR for CMP, #120 TAB Brannon Falcon DO Sep 11, 2017 12:06
[2017-09-11] MEDS ORDERED: SYMB80AE INH (12:07)
--- NOTE | 2017-09-11 18:45 | HHI.NPPN ---
Subjective History of Present Illness 27-year-old female known to me from before with past medical history of nonischemic cardiomyopathy with very low ejection fraction, history of chronic kidney disease with advanced renal failure, hypertension, diabetes mellitus, who came to the hospital with complaint of cough and shortness of breath. I was called to see the patient because of elevated BUN and creatinine. The patient has known history of chronic kidney disease. Additional Remarks Patient is alert, seen in AM, has mild pain at AVF site. Review of Systems General Constitutional: Fatigue Respiratory Lungs: SOB, Cough, Sputum, Wheeze Cardiovascular Cardiac: CONNORS Objective Data Data Vital Signs Date Time Temp Pulse Resp B/P (MAP) Pulse Ox O2 Delivery O2 Flow Rate FiO2 09/11/17 12:00 97.9 77 20 124/78 (93) 98 09/11/17 08:00 97.3 78 20 126/88 (101) 97 09/11/17 04:00 98.1 82 17 128/87 (101) 98 09/11/17 00:00 97.4 77 17 121/71 (88) 96 09/10/17 20:02 83 09/10/17 20:00 97.3 82 17 138/81 (100) 97 -: 09/10/17 0452 09/10/17 0452 Physical Exam General Appearance: No Acute Distress, Comfortable Eyes Eye Exam: Pupils Equal Throat Throat Exam: Oral Mucosa [place] & Moist Neck Neck Exam: Neck Supple Pulmonary Resp Exam: No Distress, Rhonchi, Sputum, Decreased Bases, Diminished Breath Sounds Cardiology CV Exam: Regular, Normal Sinus Rhythm Gastrointestinal/Abdomen GI Exam: Soft, Non-Tender, Bowel Sounds Present Extremeties Extremities Exam: Trace Edema Neurologic Neuro Exam: Alert, Awake, Oriented Psychiatric Psych Exam: Appropriate Responses Assessment/Plan Assessment Summary: CHF, Hypertension, CKD Stage V Problem List: (1) Proteinuria ICD Codes: R80.9 - Proteinuria, unspecified Status: Acute (2) Volume overload ICD Codes: E87.70 - Fluid overload, unspecified Status: Chronic (3) Diabetes type 2, controlled ICD Codes: E11.9 - Type 2 diabetes mellitus without complications Status: Chronic (4) HTN (hypertension) ICD Codes: I10 - Essential (primary) hypertension Status: Acute (5) Systolic CHF, chronic ICD Codes: I50.22 - Chronic systolic (congestive) heart failure Status: Acute (6) Stage 4 chronic kidney disease ICD Codes: N18.4 - Chronic kidney disease, stage 4 (severe) Status: Chronic Plan Patient has advance stage 4 chronic kidney disease reached stage 5. Started on HD Saturday via tunneled catheter. Evaluated by PD nurse, not suitable for PD due to home condition. Patient had HD done yesterday. AVF done, has weak Bruit, will wait for vascular follow up. Out patient HD set up at [facility], at 6.45 AM,to start on Saturday this week. HD today and then D/C. Patient was told to be compliant with her HD and meds. Jeromy Allen MD Sep 11, 2017 18:45
--- NOTE | 2017-09-16 10:30 | RSPPFT ---
DATE OF PROCEDURE: 09/06/17 COMMENTS: Spirometry demonstrates an FEV1 of 1.2 at 43% of predicted, FVC of 2.0 at 60%, FEV1/FVC ratio at 63%. The FEF 25-75 is 22% of predicted. Post-bronchodilator study demonstrated no significant change. Lung volumes were not completed. Flow volume loops suggest severe obstruction. IMPRESSION: 1. Moderately severe obstructive disease. 2. No significant change following use of bronchodilator.
== END 2017-09-11 16:14 | disposition home or self-care (01) | DRG 264 ==
LOC: PHED 07:39 → PHEDA 11:22 → HCIS 14:53 → N04B 09-06 20:42
PROVIDERS: ADMIT Hospitalist; ATTEND Hospitalist
PROC: 5A1D70Z Performance of Urinary Filtration, Intermittent, Less than 6 Hours Per Day (ICD-10-PCS; 2017-09-06)
PROC: 05HP33Z Insertion of Infusion Device into Right External Jugular Vein, Percutaneous Approach (ICD-10-PCS; 2017-09-06)
PROC: B513ZZA Fluoroscopy of Right Jugular Veins, Guidance (ICD-10-PCS; 2017-09-06)
PROC: 03180ZD Bypass Left Brachial Artery to Upper Arm Vein, Open Approach (ICD-10-PCS; principal; 2017-09-09 13:00)
DX: I13.2 Hypertensive heart and chronic kidney disease with heart failure and with stage 5 chronic kidney disease, or end stage renal disease (principal); I50.23 Acute on chronic systolic (congestive) heart failure; O90.3 Peripartum cardiomyopathy; N17.9 Acute kidney failure, unspecified; N18.6 End stage renal disease; D69.6 Thrombocytopenia, unspecified; Z95.810 Presence of automatic (implantable) cardiac defibrillator; J20.9 Acute bronchitis, unspecified; R73.03 Prediabetes; E66.9 Obesity, unspecified; Z68.32 Body mass index [BMI] 32.0-32.9, adult; B19.20 Unspecified viral hepatitis C without hepatic coma; Z87.891 Personal history of nicotine dependence
CPT/HCPCS: 36558; 70450; 71010; 76937; 77001; 80048; 80053; 80074; 82550; 82948; 83735; 83880; 84484; 85025; 85027; 85610; 85652; 85730; 86038; 86140; 86430; 87449; 90935; 93005; 93306; 93880; 93971; 94060; 94640; 94664; 96374; 96375; 99152; 99153; C1750; C1769; J0131; J0456; J0696; J0780; J1100; J1580; J1644; J1815; J1940; J2250; J2270; J2405; J2720; J2920; J3010; J3370; J7030; J7050; Q4081

== ENCOUNTER 2017-09-14 18:33 | Emergency (ER) | payer MEDICARE, OTHER ==
[~2017-09-14] VITALS: Ht 162.6 cm; Wt 85.9 kg
[~2017-09-14 18:33] MED LIST changes: +ALBUAER3 INH; +CEFU1TAB18 PO; +DILA2TAB4 PO; -LEVA750T9 PO; +LORA-392 PO; +SACU1TAB7 PO; +SYMB80AE INH; -TRAM50 PO; +TYLE325T PO; -VENTAER INH
[2017-09-14 18:39] VITALS: BP 140/83; PULSE 97; RESP 16; TEMP 98.6; O2SAT 97
[2017-09-14] MEDS ORDERED: MORPHINE SULFATE 4 MG/ML INJ IV PUSH ONE (19:15)
--- NOTE | 2017-09-14 19:16 | PD ---
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 Patient states that she recently had an AV fistula placed 09/09/17. Patient was discharged from the hospital at [place] 09/11/17. Patient started noticing some swelling to the left forearm evening with ongoing swelling Saturday and Saturday. Patient also noted associated pain. Patient also noticed that she did not fill as a thrill at her AV fistula graft. Patient did not contact her managing surgeon Dr. Rodriguez and did not contact her blacking machine operator. Patient is on hemodialysis via a permacath and is supposed to obtain dialysis on Saturday and Saturday but did not have dialysis on Saturday because she did not feel well. Patient is been taking her medications as prescribed. Patient denies fever chills nausea vomiting chest pain pleuritic pain or shortness of breath. Patient has not noticed any redness or drainage at the surgical site. Steri-Strips are intact. Patient denies other concerns or complaints. Patient rates her pain 9/10 in intensity. Patient is noted with activity such as pulling up her pants that she has increased pain in the left forearm. Patient denies any trauma or injury. PFSH Past Medical History Narrative Medical nursing notes and medical record reviewed CRF, HD, non-ischemic cardiomyopathy, CHF, PM/AICD, AV fistula graft Hx Anticoagulant Therapy: No Arthritis: No Asthma: No Autoimmune Disease: No Blood Disorders: No Anxiety: Yes Depression: No Heart Rhythm Problems: No Cancer: No Cardiac Catheterization: Yes Cardiomyopathy: Yes Cardiovascular Problems: Yes (cardio myopothy and chf ) High Cholesterol: No Chemotherapy: No Chest Pain: Yes Congestive Heart Failure: Yes COPD: No Cerebrovascular Accident: No Diabetes: Yes Diminished Hearing: No Endocrine: Yes Gastrointestinal Disorders: Yes (Pancreatitis) GERD: No Genitourinary: No Headaches: Yes Hiatal Hernia: No Heparin Induced Thrombocytopen: No Hypertension: Yes Immune Disorder: No Implanted Vascular Access Dvce: No Kidney Stones: No Musculoskeletal: No Neurologic: No Psychiatric: No Reproductive: No Respiratory: No Integumentary: Yes (skin swelling and various bruises abdo and bilateral arms from IV sticks) Immunizations Current: Yes Migraines: Yes Radiation Therapy: No Renal Failure: No Seizures: No Sickle Cell Disease: No Sleep Apnea: No Thyroid Disease: No Ulcer: No ?: Not LMP: 08/21/17 : 1 Para: 1 Miscarriage: 0 : 0 Tubal Ligation: Yes Past Surgical History Abdominal Surgery: No AICD: Yes Arteriovenous Shunt: No Body Medical Devices: PT WORE EXTERNAL LIFE VEST 05/15/13, pacer/defibrillator Cardiac Surgery: Yes (pace maker and aicd ) Section: Yes Cholecystectomy: Yes Ear Surgery: No Endocrine Surgery: No Eye Surgery: No Genitourinary Surgery: No Gynecologic Surgery: No Insulin Pump: No Joint Replacement: No Neurologic Surgery: No Oral Surgery: No Pacemaker: Yes Thoracic Surgery: No Tonsillectomy: Yes Other Surgery: Yes (, Tubal ligation, Gallbladder) Social History Alcohol Use: No Tobacco Use: No Substance Use: No Allergies-Medications (Allergen,Severity, Reaction): Coded Allergies: niacin (Verified Allergy, Intermediate, 09/14/17) PT STATES SHE FEELS SHAKY AND SWEATY ketorolac (Unverified Adverse Reaction, Mild, SHAKING, 09/14/17) Reported Meds & Prescriptions Reported Meds & Active Scripts Active Symbicort Inh (Budesonide/Formoterol Fumarate) 80-4.5 Mcg/Act Aero 2 Puff INH Q12HR Ativan (Lorazepam) 0.5 Mg Tab 0.5 Mg PO HS PRN Dilaudid (Hydromorphone HCl) 2 Mg Tab 2 Mg PO Q6HR PRN Entresto (Sacubitril-Valsartan) 49-51 Mg Tab 1 Tab PO BID Proair Hfa 8.5 GM Inh (Albuterol Sulfate) 90 Mcg/Act Aer 2 Puff INH Q4-6H PRN 108 mcg/actuation Ceftin (Cefuroxime Axetil) 250 Mg Tab 250 Mg PO Q12HR 4 Days Coreg (Carvedilol) 12.5 Mg Tab 25 Mg PO Q12HR Reported Tylenol (Acetaminophen) 325 Mg Tab 650 Mg PO Q4H PRN Bumetanide 2 Mg Tab 4 Mg PO BID Review of Systems Except as stated in HPI: all other systems reviewed are Neg Physical Exam Narrative GENERAL: Well developed well nourished female in no acute distress on cellular phone SKIN: Warm and dry. LUE AV fistula site steri-strips in place no redness no induration no drainage no palpable thrill, thrill is Doppler-able at the AV graft site. HEAD: Normocephalic. EYES: No scleral icterus. No injection or drainage. NECK: Supple, trachea midline. No JVD or lymphadenopathy. Right EJ perm cath without redness or drainage. CARDIOVASCULAR: Regular rate and rhythm without murmurs, gallops, or rubs. RESPIRATORY: Breath sounds equal bilaterally. No accessory muscle use. GASTROINTESTINAL: Abdomen soft, non-tender, nondistended. MUSCULOSKELETAL: No cyanosis, LUE forearm and hand edema with palpable and Doppler-able radial and ulnar pulses, intact capillary refill per digit less than 2 seconds and intact flexion extension of digits as well as intact apposition, intact range of motion flexion extension or radial deviation of the wrist as well as intact sensation of each digit. No increased redness or warmth. No left axillary lymphadenopathy or tenderness. No ascending erythema. LUE AV fistula site steri-strips in place no redness no induration no drainage no palpable thrill; thrill is Doppler-able over the AV graft site. BACK: Nontender without obvious deformity. No CVA tenderness. Data Data Last Documented VS Vital Signs Date Time Temp Pulse Resp B/P (MAP) Pulse Ox O2 Delivery O2 Flow Rate FiO2 09/14/17 20:50 104 16 169/111 (130) 100 Room Air 09/14/17 18:39 98.6 Orders Orders ^ Saline Lock (09/14/17 19:12) Complete Blood Count With Diff (09/14/17 19:12) Act Partial Throm Time (Ptt) (09/14/17 19:12) Prothrombin Time / Inr (Pt) (09/14/17 19:12) Basic Metabolic Panel (Bmp) (09/14/17 19:12) Us Arm Venous Doppler (09/14/17 ) Morphine Inj (Morphine Inj) (09/14/17 19:15) Labs Laboratory Tests Test 09/14/17 20:35 White Blood Count 7.7 TH/MM3 Red Blood Count 4.05 MIL/MM3 Hemoglobin 11.2 GM/DL Hematocrit 34.7 % Mean Corpuscular Volume 85.7 FL Mean Corpuscular Hemoglobin 27.7 PG Mean Corpuscular Hemoglobin Concent 32.3 % Red Cell Distribution Width 15.9 % Platelet Count 169 TH/MM3 Mean Platelet Volume 9.3 FL Neutrophils (%) (Auto) 74.4 % Lymphocytes (%) (Auto) 15.6 % Monocytes (%) (Auto) 6.1 % Eosinophils (%) (Auto) 1.4 % Basophils (%) (Auto) 2.5 % Neutrophils # (Auto) 5.7 TH/MM3 Lymphocytes # (Auto) 1.2 TH/MM3 Monocytes # (Auto) 0.5 TH/MM3 Eosinophils # (Auto) 0.1 TH/MM3 Basophils # (Auto) 0.2 TH/MM3 CBC Comment DIFF FINAL Differential Comment Prothrombin Time 10.8 SEC Prothromb Time International Ratio 1.0 RATIO Activated Partial Thromboplast Time 22.8 SEC Blood Urea Nitrogen 65 MG/DL Creatinine 3.80 MG/DL Random Glucose 150 MG/DL Calcium Level 7.9 MG/DL Sodium Level 138 MEQ/L Potassium Level 5.0 MEQ/L Chloride Level 104 MEQ/L Carbon Dioxide Level 26.3 MEQ/L Anion Gap 8 MEQ/L Estimat Glomerular Filtration Rate 14 ML/MIN MDM Medical Decision Making Medical Screen Exam Complete: Yes Emergency Medical Condition: Yes Medical Record Reviewed: Yes Interpretation(s) CBC & BMP Diagram 09/14/17 20:35 Calcium Level 7.9 L Vital Signs Date Time Temp Pulse Resp B/P (MAP) Pulse Ox O2 Delivery O2 Flow Rate FiO2 09/14/17 19:12 97 Room Air 09/14/17 18:39 98.6 97 16 140/83 (102) 97 Last Impressions Upper Extremity Ultrasound 09/14/17 0000 Signed Impressions: Service Date/Time: Saturday, September 14, 2017 19:44 - CONCLUSION: The study is negative for deep venous thrombosis left upper extremity. Patent AV fistula. Uli Lord MD Differential Diagnosis av graft occlusion, dvt, wound infection, cellulitis, compartment syndrome Narrative Course US LUE for av graft assessment and r/o dvt; iv access for cbc, bmp, ua; call placed to patient's vascular surgeon Dr Rodriugez US av graft patent and no dvt --this was relayed to Dr Rodriguez covering vascular surgeon, Dr Bose --recommends limb elevation and clinic follow up on Saturday @ 21:14 patient reports she feels much improved is aware of her labs and imaging results and is desirous of being discharged to home with acknowledged understanding of outpatient and follow up plan. Sepsis Criteria SIRS Criteria (2 or more): Heart rate over 90 Physician Communication Physician Communication call placed to Dr Rodriguez --discussed with Dr Johnson; @ 20:40 pm US results discussed with Evaristo Johnson [phone] --> patient to follow up with clinic Saturday [phone] recommends LUE elevation Diagnosis Primary Impression: Dependent edema Additional Impressions: AVF (arteriovenous fistula) Renal failure Qualified Codes: N18.6 - End stage renal disease; Z99.2 - Dependence on renal dialysis Hemodialysis patient Patient Instructions: General Instructions, Narcotic given in the ED Additional Instructions: Follow-up with your vascular surgeon, Dr Rodriguez; alternate # [phone] Monitor temperature every 4 hours with thermometer and take as needed acetaminophen/Tylenol for fever 100.4F or greater Continue chronic medications as presently prescribed Take pain medication as prescribed as needed be aware that this is a narcotic medication and may impair judgment delay reaction time increased risk for fall Do not miss hemodialysis appointments Follow-up with your blacking machine operator call office on Saturday to schedule follow-up Return to the emergency department for any concerns or change in condition Elevate left upper extremity as discussed Return to the emergency department for any concerns or change in condition Med/Other Pt SpecificInfo: Prescription(s) given Scripts Oxycodone-Acetaminophen (Percocet) 5-325 mg Tab 1 TAB PO Q6H Y for PAIN, #6 TAB 0 Refills Prov: Jayleen De Leon MD 09/14/17 Disposition: 01 DISCHARGE HOME Condition: Stable Jayleen De Leon MD Sep 14, 2017 19:16
--- NOTE | 2017-09-14 20:32 | RADRPT ---
EXAM DATE/TIME: 09/14/2017 19:44 [facility] COMPARISON: US ARM LEFT VENOUS DOPPLER, September 05, 2017, 22:12. INDICATIONS : Left arm swelling with new fistula placement. MEDICAL HISTORY : Congestive heart failure. Renal failure, chronic. . Migraines. Neuropathy. Cardiomyopathy. D iabets. Anxiety. Blood transfusion. SURGICAL HISTORY : Tonsillectomy. Cholecystectomy. Tubal ligation. section. Internal defibrillator. ENCOUNTER: Subsequent ACUITY: 2 day PAIN SCORE: 9/10 LOCATION: Left arm. FINDINGS: There is spontaneous flow documented in the brachial, basilic, cephalic, axillary, and subclavian vei ns. The vessels are compressible and augmentation response is documented. No filling defects are se en. The flow is phasic with respiration. Direction of flow in the jugular vein is caudal. There is intact turbulent flow seen within the AV fistula. CONCLUSION: The study is negative for deep venous thrombosis left upper extremity. Patent AV fistula. Uli Lord MD on September 14, 2017 at 20:29 Board Certified Radiologist. This report was verified electronically.
[2017-09-14 20:46] LABS: AUTOMATED NEUTROPHIL # 5.7 TH/MM3 (1.8-7.7); BASOPHIL # 0.2 TH/MM3 (0-0.2); BASOPHIL % 2.5 % (0.0-2.0); EOSINOPHIL # 0.1 TH/MM3 (0-0.4); EOSINOPHIL % 1.4 % (0.0-4.0); HEMATOCRIT 34.7 % (35.0-46.0); HEMO FLAGS DIFF FINAL; LYMPH % 15.6 % (9.0-44.0); LYMPHOCYTE # 1.2 TH/MM3 (1.0-4.8); MEAN CELL VOLUME 85.7 FL (80.0-100.0); MEAN CORPUSCULAR HEMOGLOBIN 27.7 PG (27.0-34.0); MEAN CORPUSCULAR HGB CONC 32.3 % (32.0-36.0); MONO % 6.1 % (0.0-8.0); NEUT % 74.4 % (16.0-70.0); PLATELET COUNT 169 TH/MM3 (150-450); RED BLOOD COUNT 4.05 MIL/MM3 (4.00-5.30); RED CELL DISTRIBUTION WIDTH 15.9 % (11.6-17.2); WHITE BLOOD COUNT 7.7 TH/MM3 (4.0-11.0)
[2017-09-14 20:50] VITALS: BP 169/111; PULSE 104; RESP 16; O2SAT 100
[2017-09-14 20:55] LABS: BICARBONATE 26.3 MEQ/L (21.0-32.0)
[2017-09-14 20:57] LABS: APTT (PATIENT) 22.8 SEC (24.3-30.1); PROTHROMBIN TIME - PATIENT 10.8 SEC (9.8-11.6)
[2017-09-14] MEDS ORDERED: PERC5TAB12 PO (21:16)
[2017-09-14 21:35] VITALS: BP 158/100; PULSE 93; RESP 18; TEMP 98.1; O2SAT 99
[2017-09-14] MEDS ORDERED: oxyCODONE/ACETAMINOPHEN 5 MG/325 MG TAB PO ONE (22:00)
[2017-09-14 22:05] VITALS: BP 147/92; PULSE 92; RESP 18; O2SAT 99
== END 2017-09-14 22:08 | disposition home or self-care (01) ==
LOC: PHED 18:33
DX: R60.9 Edema, unspecified (principal); I77.0 Arteriovenous fistula, acquired; I42.9 Cardiomyopathy, unspecified; I13.2 Hypertensive heart and chronic kidney disease with heart failure and with stage 5 chronic kidney disease, or end stage renal disease; N18.6 End stage renal disease; I50.9 Heart failure, unspecified; E11.9 Type 2 diabetes mellitus without complications; Z99.2 Dependence on renal dialysis; Z95.810 Presence of automatic (implantable) cardiac defibrillator
CPT/HCPCS: 80048; 85025; 85610; 85730; 93971; 96374; 99285; J2270

== ENCOUNTER 2017-09-16 03:12 | Emergency (ER) | payer MEDICARE, OTHER ==
[~2017-09-16] VITALS: Ht 167.6 cm; Wt 92.0 kg
[~2017-09-16 03:12] MED LIST changes: +PERC5TAB12 PO
[2017-09-16 03:20] VITALS: BP 140/90; PULSE 108; RESP 16; TEMP 98.4; O2SAT 99
--- NOTE | 2017-09-16 03:51 | PD ---
HPI Chief Complaint: Skin Problem Time Seen by Provider: 03:47 Travel History International Travel<30 days: No Contact w/Intl Traveler<30days: No Traveled to known affect area: No History of Present Illness HPI The patient is a 27 year old male who presents to the [facility] emergency department with a history of left upper extremity pain and swelling that she reports has been present since having an AV fistula placed 6 days ago. The patient reports that she was seen in the emergency department on September 14 regarding the symptoms at the [place] emergency department. The patient reports that laboratory studies were done and an ultrasound of the left upper extremity. The patient was sent home with a prescription for Percocet. She reports that she last took a Percocet at 2 PM yesterday. She last took hydromorphone tablet in the morning approximately 24 hours ago. The patient reports that she was recently diagnosed as having renal failure and started on hemodialysis last week. She reports that she missed her last hemodialysis session on Saturday as she did not have transportation. She has an appointment again today, however again she does not have transportation. She reports that she does not know how she is post to get to dialysis. She reports that she recently moved to the area from [place], [place]. She does not have a primary care physician. Her manager garage is Dr. Allen. She denies having any chest pain or shortness of breath. The patient reports that the swelling has continued to be present in spite of elevating the left upper extremity as recommended by the [place] emergency department. On review of systems otherwise she denies having any recent fevers, cough, congestion, neck pain, abdominal pain, vomiting, diarrhea, or neurologic symptoms. [facility] Past Medical History Narrative Medical The patient's past medical history is significant for chronic renal failure newly on dialysis, history of nonischemic cardiomyopathy, history of anxiety disorder, history of pancreatitis. Hx Anticoagulant Therapy: No Arthritis: No Asthma: No Autoimmune Disease: No Blood Disorders: No Anxiety: Yes Depression: No Heart Rhythm Problems: No Cancer: No Cardiac Catheterization: Yes Cardiomyopathy: Yes Cardiovascular Problems: Yes (cardio myopothy and chf ) High Cholesterol: No Chemotherapy: No Chest Pain: Yes Congestive Heart Failure: Yes COPD: No Cerebrovascular Accident: No Diabetes: Yes Patient Takes Glucophage: No Diminished Hearing: No Endocrine: Yes Gastrointestinal Disorders: Yes (Pancreatitis) GERD: No Genitourinary: No Headaches: Yes Hiatal Hernia: No Heparin Induced Thrombocytopen: No Hypertension: Yes Immune Disorder: No Implanted Vascular Access Dvce: Yes (a/v shunt lt arm 09/09/17) Kidney Stones: No Musculoskeletal: No Neurologic: No Psychiatric: No Reproductive: No Respiratory: No Integumentary: Yes (skin swelling and various bruises abdo and bilateral arms from IV sticks) Immunizations Current: Yes Migraines: Yes Radiation Therapy: No Renal Failure: No Seizures: No Sickle Cell Disease: No Sleep Apnea: No Thyroid Disease: No Ulcer: No Tetanus Vaccination: < 5 Years Influenza Vaccination: Yes ?: Not LMP: 08/21/17 : 1 Para: 1 Miscarriage: 0 : 0 Tubal Ligation: Yes Past Surgical History Narrative Surgical The patient's past surgical history is significant for pacemaker and AICD placement, Vas-Cath placement in the right side of her chest during her last admission to the hospital, history of AV fistula placement left upper extremity 6 days ago, history of a , bilateral tubal ligation, cholecystectomy. Abdominal Surgery: No AICD: Yes Arteriovenous Shunt: No Body Medical Devices: PT WORE EXTERNAL LIFE VEST 05/15/13, pacer/defibrillator Cardiac Surgery: Yes (pace maker and aicd ) Section: Yes Cholecystectomy: Yes Ear Surgery: No Endocrine Surgery: No Eye Surgery: No Genitourinary Surgery: No Gynecologic Surgery: No Insulin Pump: No Joint Replacement: No Neurologic Surgery: No Oral Surgery: No Pacemaker: Yes Thoracic Surgery: No Tonsillectomy: Yes Other Surgery: Yes (, Tubal ligation, Gallbladder) Social History Alcohol Use: No Tobacco Use: No Substance Use: No Allergies-Medications (Allergen,Severity, Reaction): Coded Allergies: niacin (Verified Allergy, Intermediate, 09/16/17) PT STATES SHE FEELS SHAKY AND SWEATY ketorolac (Unverified Adverse Reaction, Mild, SHAKING, 09/16/17) Reported Meds & Prescriptions Reported Meds & Active Scripts Active Percocet (Oxycodone-Acetaminophen) 5-325 mg Tab 1 Tab PO Q6H PRN Dilaudid (Hydromorphone HCl) 2 Mg Tab 2 Mg PO Q6HR PRN Entresto (Sacubitril-Valsartan) 49-51 Mg Tab 1 Tab PO BID Ceftin (Cefuroxime Axetil) 250 Mg Tab 250 Mg PO Q12HR 4 Days Coreg (Carvedilol) 12.5 Mg Tab 25 Mg PO Q12HR Reported Bumetanide 2 Mg Tab 4 Mg PO BID Review of Systems Except as stated in HPI: all other systems reviewed are Neg General / Constitutional: No: Fever Eyes: No: Visual changes HENT: No: Headaches Cardiovascular: Positive: Edema (left upper extremity), No: Chest Pain or Discomfort Respiratory: No: Shortness of Breath Gastrointestinal: No: Abdominal Pain Genitourinary: No: Dysuria Musculoskeletal: No: Pain Skin: No Rash Neurologic: No: Weakness, Focal Abnormalities, Change in Mentation, Slurred Speech, Sensory Disturbance Psychiatric: No: Depression Endocrine: No: Polydipsia Hematologic/Lymphatic: No: Easy Bruising Physical Exam Narrative General: The patient is a well-developed well-nourished female in no acute distress. Head and Neck exam: Head is normocephalic atraumatic. Eyes: EOMI, pupils are equal round and reactive to light. Nose: Midline septum with pink mucous membranes Mouth: Dentition unremarkable. Moist mucus membranes. Posterior oropharynx is not erythematous. No tonsillar hypertrophy. Uvula midline. Airway patent. Neck: No palpable lymphadenopathy. No nuchal rigidity. No thyromegaly. Cardiovascular: Regular rate and rhythm without murmurs, gallops, or rubs. Lungs: Clear to auscultation bilaterally. No wheezes, rhonchi, or rales. Abdomen: Soft, without tenderness to palpation in all 4 quadrants of the abdomen. No guarding, rebound, or rigidity. Normal bowel sounds are audible. No tenderness on palpation of McBurney's point. Extremities: No clubbing, cyanosis, or edema in bilateral lower extremities, and the right upper extremity, however on examination of the left upper extremity the patient has edema noted. The patient's compartments are soft. The patient has a wound in the medial aspect of the upper arm related to the AV fistula placement that appears to be healing well. No drainage is noted. No surrounding significant erythema is noted., No palpable thrill is noted on exam. The patient is noted to have less than 3 second capillary refill of her digits, full range of motion of her hand, wrist, and elbow. She has no axillary lymphadenopathy. 2+ pulses in all 4 extremities. Back: No spinous process tenderness to palpation. No costovertebral angle tenderness to palpation. Neurologic Exam: Grossly nonfocal. Skin Exam: No rash noted. Intact skin that is warm and dry. Data Data Last Documented VS Vital Signs Date Time Temp Pulse Resp B/P (MAP) Pulse Ox O2 Delivery O2 Flow Rate FiO2 09/16/17 03:20 98.4 108 16 140/90 (107) 99 Room Air Orders Orders Complete Blood Count With Diff (09/16/17 04:13) Comprehensive Metabolic Panel (09/16/17 04:13) Prothrombin Time / Inr (Pt) (09/16/17 04:13) Act Partial Throm Time (Ptt) (09/16/17 04:13) C-Reactive Protein (Crp) (09/16/17 04:13) Magnesium (Mg) (09/16/17 04:13) Phosphorus (Po4) (09/16/17 04:13) Chest, Single Ap (09/16/17 04:13) Iv Access Insert/Monitor (09/16/17 04:13) Ecg Monitoring (09/16/17 04:13) Oximetry (09/16/17 04:13) Ed Urine Pregnancytest Poc (09/16/17 04:13) Us Arm Venous Doppler (09/16/17 05:08) Oxycodone-Acetamin 5-325 Mg (Percocet (09/16/17 06:00) Sodium Polysty Sulfate Liq (Kayexalate L (09/16/17 07:00) Ed Discharge Order (09/16/17 07:11) Labs Laboratory Tests Test 09/16/17 04:30 09/16/17 05:00 White Blood Count 7.1 TH/MM3 Red Blood Count 4.14 MIL/MM3 Hemoglobin 11.7 GM/DL Hematocrit 36.0 % Mean Corpuscular Volume 86.9 FL Mean Corpuscular Hemoglobin 28.2 PG Mean Corpuscular Hemoglobin Concent 32.4 % Red Cell Distribution Width 16.6 % Platelet Count 155 TH/MM3 Mean Platelet Volume 9.9 FL Neutrophils (%) (Auto) 77.8 % Lymphocytes (%) (Auto) 14.8 % Monocytes (%) (Auto) 5.5 % Eosinophils (%) (Auto) 1.7 % Basophils (%) (Auto) 0.2 % Neutrophils # (Auto) 5.6 TH/MM3 Lymphocytes # (Auto) 1.1 TH/MM3 Monocytes # (Auto) 0.4 TH/MM3 Eosinophils # (Auto) 0.1 TH/MM3 Basophils # (Auto) 0.0 TH/MM3 CBC Comment DIFF FINAL Differential Comment Blood Urea Nitrogen 59 MG/DL Creatinine 4.04 MG/DL Random Glucose 120 MG/DL Total Protein 5.8 GM/DL Albumin 2.3 GM/DL Calcium Level 8.0 MG/DL Phosphorus Level 6.3 MG/DL Magnesium Level 1.6 MG/DL Alkaline Phosphatase 97 U/L Aspartate Amino Transf (AST/SGOT) 57 U/L Alanine Aminotransferase (ALT/SGPT) 47 U/L Total Bilirubin 0.3 MG/DL Sodium Level 139 MEQ/L Potassium Level 6.1 MEQ/L Chloride Level 108 MEQ/L Carbon Dioxide Level 23.2 MEQ/L Anion Gap 8 MEQ/L Estimat Glomerular Filtration Rate 13 ML/MIN C-Reactive Protein 0.71 MG/DL Prothrombin Time 10.7 SEC Prothromb Time International Ratio 1.0 RATIO Activated Partial Thromboplast Time 23.5 SEC MDM Medical Decision Making Medical Screen Exam Complete: Yes Emergency Medical Condition: Yes Medical Record Reviewed: Yes Differential Diagnosis Postop infection, versus DVT, versus thrombosis, versus compartment syndrome Narrative Course During the course of the patients emergency department visit, the patients history, examination, and differential diagnosis were reviewed with the patient. The patient was placed on a cardiac cath rn with oximetry and frequent blood pressure monitoring. The patient had IV access obtained and blood work sent for analysis. Heavenly, the disease case manager rn, was consulted regarding this patient's concerns about transportation to dialysis. She discussed the patient' s case further with the patient and also reviewed the records from prior case management consultation. She reported that we would be able to provide a taxi pass the patient on this occasion for transportation to dialysis today, however in the future the patient would be to arrange for her own transport. The patient was initially provided hydromorphone 0.5 mg IV, Zofran 4 mg IV. The patients laboratory studies were reviewed and remarkable for white count of 7.1, hemoglobin 11.7, platelets 155, neutrophils 77.8. CMP is remarkable for a potassium of 6.1 with hemolysis noted, chloride 108, BUN 59, creatinine 4.04, glucose 120, phosphorus 6.3, AST 57, C-reactive protein 0.71, PT 10.7, PTT 23.5. Radiology studies were reviewed and remarkable for a chest x-ray that shows persistent enlargement of the cardiac silhouette, no other acute abnormality. Ultrasound revealed a patent graft, no evidence of DVT. The patient was given a single dose of Kayexalate. The patient was instructed regarding the importance of going directly to dialysis. The disease case manager rn discussed the patient's case with the dialysis nurse who is aware that the patient will be coming by cab to dialysis this morning. The patient is resting comfortably and feels better, is alert and in no distress. The patients results and examination findings were discussed with the patient. The repeat examination is unremarkable and benign. The history, exam, diagnostic testing, and current condition do not suggest any significant pathology to warrant further testing, continued ED treatment, admission, or surgical evaluation at this point. The vital signs have been stable. The patient does not have uncontrollable pain, intractable vomiting, or other significant symptoms. The patient's condition is stable and appropriate for discharge. The patient will pursue further outpatient evaluation with a primary care physician or other designated or consulting physician as indicated in the discharge instructions. The patient expressed understanding and was agreeable with this plan. Diagnosis Primary Impression: Left arm swelling Additional Impressions: Chronic kidney disease Qualified Codes: N18.9 - Chronic kidney disease, unspecified Left arm pain Referrals: Jeromy Allen MD 1 day Primary Care Physician Patient Instructions: Arm Pain (ED), General Instructions Additional Instructions: Go directly to dialysis today. Med/Other Pt SpecificInfo: No Change to Meds Disposition: 01 DISCHARGE HOME Condition: Stable Marla Elias MD Sep 16, 2017 03:51
[2017-09-16 04:46] LABS: AUTOMATED NEUTROPHIL # 5.6 TH/MM3 (1.8-7.7); BASOPHIL % 0.2 % (0.0-2.0); EOSINOPHIL # 0.1 TH/MM3 (0-0.4); EOSINOPHIL % 1.7 % (0.0-4.0); HEMO FLAGS DIFF FINAL; LYMPH % 14.8 % (9.0-44.0); LYMPHOCYTE # 1.1 TH/MM3 (1.0-4.8); MEAN CELL VOLUME 86.9 FL (80.0-100.0); MEAN CORPUSCULAR HEMOGLOBIN 28.2 PG (27.0-34.0); MEAN CORPUSCULAR HGB CONC 32.4 % (32.0-36.0); MONO % 5.5 % (0.0-8.0); NEUT % 77.8 % (16.0-70.0); PLATELET COUNT 155 TH/MM3 (150-450); RED BLOOD COUNT 4.14 MIL/MM3 (4.00-5.30); RED CELL DISTRIBUTION WIDTH 16.6 % (11.6-17.2); WHITE BLOOD COUNT 7.1 TH/MM3 (4.0-11.0)
[2017-09-16 04:56] LABS: ALKALINE PHOSPHATASE 97 U/L (45-117); TOTAL BILIRUBIN ADULT 0.3 MG/DL (0.2-1.0)
[2017-09-16 04:59] LABS: ALT (GPT) 47 U/L (10-53); ANION GAP 8 MEQ/L (5-15); AST (GOT) 57 U/L (15-37); BICARBONATE 23.2 MEQ/L (21.0-32.0); BLOOD UREA NITROGEN 59 MG/DL (7-18); CHLORIDE 108 MEQ/L (98-107); GLOMERULAR FILTRATION RATE 13 ML/MIN (>89); MAGNESIUM 1.6 MG/DL (1.5-2.5); POTASSIUM 6.1 MEQ/L (3.5-5.1); SODIUM (NA) 139 MEQ/L (136-145)
--- NOTE | 2017-09-16 05:17 | RADRPT ---
EXAM DATE/TIME: 09/16/2017 04:52 [facility] COMPARISON: CHEST SINGLE AP, September 10, 2017, 5:57. INDICATIONS : Left arm pain post A-V fistula surgery one week ago. MEDICAL HISTORY : Congestive heart failure. Renal failure, chronic. Diabetes mellitus type II. SURGICAL HISTORY : Pacemaker. section. Tubal ligation. Cholecystectomy ENCOUNTER: Initial ACUITY: 1 day PAIN SCORE: 0/10 LOCATION: Bilateral chest FINDINGS: There is a pacing device in place from the left subclavian approach. There is a double-lumen catheter in place from the right internal jugular approach. The cardiac silhouette is enlarged. The lungs are clear. CONCLUSION: Persistent enlargement of the cardiac silhouette. Josef Giordano MD on September 16, 2017 at 5:14 Board Certified Radiologist. This report was verified electronically.
[2017-09-16] MEDS ORDERED: oxyCODONE/ACETAMINOPHEN 5 MG/325 MG TAB PO ONE (06:00)
[2017-09-16 06:01] LABS: APTT (PATIENT) 23.5 SEC (24.3-30.1); PROTHROMBIN TIME - PATIENT 10.7 SEC (9.8-11.6)
--- NOTE | 2017-09-16 06:57 | RADRPT ---
EXAM DATE/TIME: 09/16/2017 06:08 [facility] COMPARISON: US ARM LEFT VENOUS DOPPLER, September 14, 2017, 19:44. INDICATIONS : Post graft. MEDICAL HISTORY : Congestive heart failure. Renal failure, chronic. . Migraines. Neuropathy. Cardiomyopathy. D iabets. Anxiety. Blood transfusion. SURGICAL HISTORY : Tonsillectomy. Cholecystectomy. Tubal ligation. section. Internal defibrillator ENCOUNTER: Subsequent ACUITY: 2 weeks PAIN SCORE: 7/10 LOCATION: Left arm. FINDINGS: There is spontaneous flow documented in the brachial, basilic, cephalic, axillary, and subclavian vei ns. The vessels are compressible and augmentation response is documented. No filling defects are se en. The flow is phasic with respiration. Direction of flow in the jugular vein is caudal. There is a left-sided AV fistula present. This is patent. CONCLUSION: No thrombosis is seen. The AV fistula is seen. Josef Giordano MD on September 16, 2017 at 6:54 Board Certified Radiologist. This report was verified electronically.
[2017-09-16] MEDS ORDERED: SODIUM POLYSTYRENE SULFONATE SUSP 15 GM/60 ML CUP PO ONE (07:00)
[2017-09-16 07:58] VITALS: BP 142/86
== END 2017-09-16 07:59 | disposition home or self-care (01) ==
LOC: NEPC 03:12
DX: M79.89 Other specified soft tissue disorders (principal); M79.602 Pain in left arm; E11.22 Type 2 diabetes mellitus with diabetic chronic kidney disease; I13.0 Hypertensive heart and chronic kidney disease with heart failure and stage 1 through stage 4 chronic kidney disease, or unspecified chronic kidney disease; I50.9 Heart failure, unspecified; F41.9 Anxiety disorder, unspecified; Z99.2 Dependence on renal dialysis; Z79.899 Other long term (current) drug therapy; Z87.19 Personal history of other diseases of the digestive system
CPT/HCPCS: 71010; 80053; 83735; 84100; 85025; 85610; 85730; 86140; 93971; 99285

== ENCOUNTER 2017-09-28 14:00 | Emergency (ER) | payer MEDICARE, OTHER ==
[~2017-09-28] VITALS: Ht 162.6 cm; Wt 83.1 kg
[~2017-09-28 14:00] MED LIST changes: -ALBUAER3 INH; -LORA-392 PO; -SYMB80AE INH; -TYLE325T PO
[2017-09-28 14:11] VITALS: BP 133/73; PULSE 88; RESP 16; O2SAT 99
[2017-09-28] MEDS ORDERED: VANC1000P IV (14:51)
--- NOTE | 2017-09-28 15:05 | PD ---
HPI Chief Complaint: Edema Time Seen by Provider: 14:50 Travel History International Travel<30 days: No Contact w/Intl Traveler<30days: No Traveled to known affect area: No History of Present Illness HPI 19-year-old female complains of right leg pain and discoloration. Patient states that his symptoms started about a week and a half ago. Patient was seen by edge blacker a week ago and was advised to have IV vancomycin with dialysis for the past week. Patient states that she had persistent pain and discoloration on right leg despite vancomycin. Patient has history of end- stage renal disease on dialysis. Patient has history of hypertension, diabetes , CHF, migraine. PFSH Past Medical History Hx Anticoagulant Therapy: No Arthritis: No Asthma: No Autoimmune Disease: No Blood Disorders: No Anxiety: Yes Depression: No Heart Rhythm Problems: No Cancer: No Cardiac Catheterization: Yes Cardiomyopathy: Yes Cardiovascular Problems: Yes (htn on meds) High Cholesterol: No Chemotherapy: No Chest Pain: Yes Congestive Heart Failure: Yes COPD: No Cerebrovascular Accident: No Diabetes: Yes Patient Takes Glucophage: No Diminished Hearing: No Endocrine: Yes Gastrointestinal Disorders: Yes (Pancreatitis) GERD: No Genitourinary: No Headaches: Yes Hiatal Hernia: No Heparin Induced Thrombocytopen: No Hypertension: Yes Immune Disorder: No Implanted Vascular Access Dvce: Yes (a/v shunt lt arm 09/09/17) Kidney Stones: No Musculoskeletal: No Neurologic: No Psychiatric: No Reproductive: No Respiratory: No Integumentary: Yes Immunizations Current: Yes Migraines: Yes Radiation Therapy: No Renal Failure: No Seizures: No Sickle Cell Disease: No Sleep Apnea: No Thyroid Disease: No Ulcer: No Tetanus Vaccination: < 5 Years Influenza Vaccination: Yes ?: Not LMP: 09/11/17 : 1 Para: 1 Miscarriage: 0 : 0 Tubal Ligation: Yes Past Surgical History Abdominal Surgery: No AICD: Yes Arteriovenous Shunt: No Body Medical Devices: PT WORE EXTERNAL LIFE VEST 05/15/13, pacer/defibrillator Cardiac Surgery: Yes (pace maker and aicd ) Section: Yes Cholecystectomy: Yes Ear Surgery: No Endocrine Surgery: No Eye Surgery: No Genitourinary Surgery: No Gynecologic Surgery: No Insulin Pump: No Joint Replacement: No Neurologic Surgery: No Oral Surgery: No Pacemaker: Yes Thoracic Surgery: No Tonsillectomy: Yes Other Surgery: Yes (PORT FOR DIALYSIS) Social History Alcohol Use: No Tobacco Use: No Substance Use: Yes (WEED DAILY) Allergies-Medications (Allergen,Severity, Reaction): Coded Allergies: niacin (Verified Allergy, Intermediate, 09/28/17) PT STATES SHE FEELS SHAKY AND SWEATY ketorolac (Unverified Adverse Reaction, Mild, SHAKING, 09/28/17) Reported Meds & Prescriptions Reported Meds & Active Scripts Active Entresto (Sacubitril-Valsartan) 49-51 Mg Tab 1 Tab PO BID Coreg (Carvedilol) 12.5 Mg Tab 25 Mg PO Q12HR Reported Vancomycin Inj (Vancomycin HCl) 1 Gram Inj 1,000 Mg IV MON,WED,SAT Bumetanide 2 Mg Tab 4 Mg PO BID Review of Systems General / Constitutional: No: Fever Eyes: No: Visual changes HENT: No: Headaches Cardiovascular: No: Chest Pain or Discomfort Respiratory: No: Shortness of Breath Gastrointestinal: No: Abdominal Pain Genitourinary: No: Dysuria Musculoskeletal: Positive: Pain Skin: No Rash Neurologic: No: Weakness Psychiatric: No: Depression Endocrine: No: Polydipsia Hematologic/Lymphatic: No: Easy Bruising Physical Exam Narrative GENERAL: Well-nourished, well-developed patient. SKIN: Focused skin assessment warm/dry. HEAD: Normocephalic. EYES: No scleral icterus. No injection or drainage. NECK: Supple, trachea midline. No JVD or lymphadenopathy. CARDIOVASCULAR: Regular rate and rhythm without murmurs, gallops, or rubs. RESPIRATORY: Breath sounds equal bilaterally. No accessory muscle use. GASTROINTESTINAL: Abdomen soft, non-tender, nondistended. MUSCULOSKELETAL: No cyanosis, or edema. BACK: Nontender without obvious deformity. No CVA tenderness. Patient has ecchymosis noted on the right lower extremity with mild edema noted. Moderate tenderness on palpation. No redness no heat noted. Good DP pulses. Data Data Last Documented VS Vital Signs Date Time Temp Pulse Resp B/P (MAP) Pulse Ox O2 Delivery O2 Flow Rate FiO2 09/28/17 14:42 99 Room Air 09/28/17 14:11 88 16 133/73 (93) Orders Orders Us Leg Venous Doppler (09/28/17 14:58) Complete Blood Count With Diff (09/28/17 14:58) Comprehensive Metabolic Panel (09/28/17 14:58) Magnesium (Mg) (09/28/17 14:58) Phosphorus (Po4) (09/28/17 14:58) Iv Access Insert/Monitor (09/28/17 14:58) Prothrombin Time / Inr (Pt) (09/28/17 14:59) Act Partial Throm Time (Ptt) (09/28/17 14:59) Westergren Sedimentation Rate (09/28/17 14:59) Tramadol (Ultram) (09/28/17 16:15) Sodium Polysty Sulfate Liq (Kayexalate L (09/28/17 16:15) Labs Laboratory Tests Test 09/28/17 15:21 White Blood Count 6.6 TH/MM3 Red Blood Count 4.35 MIL/MM3 Hemoglobin 11.9 GM/DL Hematocrit 36.7 % Mean Corpuscular Volume 84.3 FL Mean Corpuscular Hemoglobin 27.4 PG Mean Corpuscular Hemoglobin Concent 32.5 % Red Cell Distribution Width 15.6 % Platelet Count 200 TH/MM3 Mean Platelet Volume 9.2 FL Neutrophils (%) (Auto) 64.2 % Lymphocytes (%) (Auto) 26.9 % Monocytes (%) (Auto) 4.9 % Eosinophils (%) (Auto) 2.8 % Basophils (%) (Auto) 1.2 % Neutrophils # (Auto) 4.2 TH/MM3 Lymphocytes # (Auto) 1.8 TH/MM3 Monocytes # (Auto) 0.3 TH/MM3 Eosinophils # (Auto) 0.2 TH/MM3 Basophils # (Auto) 0.1 TH/MM3 CBC Comment DIFF FINAL Differential Comment Erythrocyte Sedimentation Rate 34 mm/hr Prothrombin Time 10.7 SEC Prothromb Time International Ratio 1.1 RATIO Activated Partial Thromboplast Time 26.4 SEC Blood Urea Nitrogen 35 MG/DL Creatinine 3.00 MG/DL Random Glucose 90 MG/DL Total Protein 6.7 GM/DL Albumin 2.9 GM/DL Calcium Level 8.8 MG/DL Phosphorus Level 4.2 MG/DL Magnesium Level 2.2 MG/DL Alkaline Phosphatase 124 U/L Aspartate Amino Transf (AST/SGOT) 15 U/L Alanine Aminotransferase (ALT/SGPT) 31 U/L Total Bilirubin 0.3 MG/DL Sodium Level 138 MEQ/L Potassium Level 5.6 MEQ/L Chloride Level 108 MEQ/L Carbon Dioxide Level 22.0 MEQ/L Anion Gap 8 MEQ/L Estimat Glomerular Filtration Rate 19 ML/MIN MDM Medical Decision Making Medical Screen Exam Complete: Yes Emergency Medical Condition: Yes Interpretation(s) 1555 PM. Doppler study right leg negative for DVT. CBC within normal limit. Potassium 5.6. BUN 35. Creatinine 3.0. Alkaline phosphatase 124. Differential Diagnosis Differential diagnosis including ecchymosis, cellulitis, DVT. Narrative Course 19-year-old female with right leg pain and ecchymosis. Patient being treated for cellulitis with vancomycin during dialysis. Ultram 50 mid gram by mouth given. Kayexalate 30 g by mouth given. Diagnosis Primary Impression: Cellulitis of right leg Additional Impression: Hyperkalemia Patient Instructions: General Instructions Additional Instructions: Follow-up with personal physician. Return if worse. Med/Other Pt SpecificInfo: No Change to Meds Disposition: 01 DISCHARGE HOME Condition: Stable Lew Damon MD Sep 28, 2017 15:05
[2017-09-28 15:32] LABS: AUTOMATED NEUTROPHIL # 4.2 TH/MM3 (1.8-7.7); BASOPHIL # 0.1 TH/MM3 (0-0.2); BASOPHIL % 1.2 % (0.0-2.0); EOSINOPHIL # 0.2 TH/MM3 (0-0.4); EOSINOPHIL % 2.8 % (0.0-4.0); HEMATOCRIT 36.7 % (35.0-46.0); HEMO FLAGS DIFF FINAL; LYMPH % 26.9 % (9.0-44.0); LYMPHOCYTE # 1.8 TH/MM3 (1.0-4.8); MEAN CELL VOLUME 84.3 FL (80.0-100.0); MEAN CORPUSCULAR HEMOGLOBIN 27.4 PG (27.0-34.0); MEAN CORPUSCULAR HGB CONC 32.5 % (32.0-36.0); MONO % 4.9 % (0.0-8.0); NEUT % 64.2 % (16.0-70.0); PLATELET COUNT 200 TH/MM3 (150-450); RED BLOOD COUNT 4.35 MIL/MM3 (4.00-5.30); RED CELL DISTRIBUTION WIDTH 15.6 % (11.6-17.2); WHITE BLOOD COUNT 6.6 TH/MM3 (4.0-11.0)
[2017-09-28 15:42] LABS: CHLORIDE 108 MEQ/L (98-107); POTASSIUM 5.6 MEQ/L (3.5-5.1); SODIUM (NA) 138 MEQ/L (136-145)
[2017-09-28 15:46] LABS: ANION GAP 8 MEQ/L (5-15); BLOOD UREA NITROGEN 35 MG/DL (7-18); MAGNESIUM 2.2 MG/DL (1.5-2.5)
[2017-09-28 15:47] LABS: APTT (PATIENT) 26.4 SEC (24.3-30.1); INTERNATIONAL NORMALIZED RATIO 1.1 RATIO; PROTHROMBIN TIME - PATIENT 10.7 SEC (9.8-11.6)
[2017-09-28 15:49] LABS: ALT (GPT) 31 U/L (10-53); AST (GOT) 15 U/L (15-37); GLOMERULAR FILTRATION RATE 19 ML/MIN (>89)
[2017-09-28 15:50] LABS: TOTAL BILIRUBIN ADULT 0.3 MG/DL (0.2-1.0)
[2017-09-28 15:52] LABS: ALKALINE PHOSPHATASE 124 U/L (45-117)
--- NOTE | 2017-09-28 15:52 | RADRPT ---
EXAM DATE/TIME: 09/28/2017 15:24 [facility] COMPARISON: US LEG RIGHT VENOUS DOPPLER, July 18, 2016, 10:49. INDICATIONS : Right leg pain. MEDICAL HISTORY : Congestive heart failure. Cardiomyopathy. Hypertension. SURGICAL HISTORY : Tonsillectomy. Pacemaker. Cholecystectomy. Tubal ligation. section. AVF left arm. ENCOUNTER: Initial ACUITY: 1 week PAIN SCORE: 8/10 LOCATION: Right leg. TECHNIQUE: Venous ultrasound of the leg was performed from the inguinal ligament to the proximal calf. Real-ronen e, color Doppler and spectral tracing, compression and augmentation techniques were used. FINDINGS: There is normal compressibility of the deep venous system from the inguinal region to the proximal ca lf. No echogenic clot is seen in the lumen of the common femoral, femoral, popliteal, and posterior tibial veins. There is a normal response of the venous system to proximal and distal augmentation an d respiration. CONCLUSION: No evidence of DVT. Isaac Moon MD on September 28, 2017 at 15:50 Board Certified Radiologist. This report was verified electronically.
[2017-09-28] MEDS ORDERED: SODIUM POLYSTYRENE SULFONATE SUSP 15 GM/60 ML CUP PO ONE (16:15)
[2017-09-28] MEDS ORDERED: traMADol HCL 50 MG TAB PO ONE (16:15)
[2017-09-28 16:32] VITALS: BP 132/79; PULSE 92; RESP 18; O2SAT 98
== END 2017-09-28 17:20 | disposition home or self-care (01) ==
LOC: PHED 14:00
DX: L03.115 Cellulitis of right lower limb (principal); E87.5 Hyperkalemia; N18.6 End stage renal disease; I12.0 Hypertensive chronic kidney disease with stage 5 chronic kidney disease or end stage renal disease; E11.9 Type 2 diabetes mellitus without complications; I42.9 Cardiomyopathy, unspecified; I50.9 Heart failure, unspecified; Z99.2 Dependence on renal dialysis; Z87.19 Personal history of other diseases of the digestive system; M79.604 Pain in right leg
CPT/HCPCS: 80053; 83735; 84100; 85025; 85610; 85652; 85730; 93971; 99284

== ENCOUNTER 2017-10-02 23:41 | Emergency (ER) | payer MEDICARE, OTHER ==
[~2017-10-02] VITALS: Ht 162.6 cm; Wt 81.8 kg
[~2017-10-02 23:41] MED LIST changes: -CEFU1TAB18 PO; -DILA2TAB4 PO; -PERC5TAB12 PO; +VANC1000P IV
[2017-10-02 23:46] VITALS: BP 120/73; PULSE 87; RESP 20; TEMP 98; O2SAT 99
--- NOTE | 2017-10-03 00:14 | PD ---
HPI Chief Complaint: Abdominal Pain Time Seen by Provider: 23:48 Travel History International Travel<30 days: No Contact w/Intl Traveler<30days: No Traveled to known affect area: No History of Present Illness HPI The patient was seen and examined in the presence of the nurse. This patient complains of pain in her leg in the left side of her abdomen. These seem to be chronic problems. She's had them for a long time. She is dialysis patient but skipped her last 2 dialysis days. She says she didn't have a ride. Symptoms severity is moderate. She is not short of breath. No alleviating factors. Symptoms exacerbated by her noncompliance. Duration 3 days PFSH Past Medical History Hx Anticoagulant Therapy: No Arthritis: No Asthma: No Autoimmune Disease: No Blood Disorders: No Anxiety: Yes Depression: No Heart Rhythm Problems: No Cancer: No Cardiac Catheterization: Yes Cardiomyopathy: Yes Cardiovascular Problems: Yes (htn on meds) High Cholesterol: No Chemotherapy: No Chest Pain: Yes Congestive Heart Failure: Yes COPD: No Cerebrovascular Accident: No Diabetes: Yes Patient Takes Glucophage: No Dialysis: Yes (sat) Diminished Hearing: No Endocrine: Yes Gastrointestinal Disorders: Yes (Pancreatitis) GERD: No Genitourinary: No Headaches: Yes Hiatal Hernia: No Heparin Induced Thrombocytopen: No Hypertension: Yes Immune Disorder: No Implanted Vascular Access Dvce: Yes (a/v shunt lt arm 09/09/17) Kidney Stones: No Musculoskeletal: No Neurologic: No Psychiatric: No Reproductive: No Respiratory: No Integumentary: Yes Immunizations Current: Yes Migraines: Yes Radiation Therapy: No Renal Failure: No Seizures: No Sickle Cell Disease: No Sleep Apnea: No Thyroid Disease: No Ulcer: No Tetanus Vaccination: < 5 Years ?: Not LMP: 09/11/17 : 1 Para: 1 Miscarriage: 0 : 0 Tubal Ligation: Yes Past Surgical History Abdominal Surgery: No AICD: Yes Arteriovenous Shunt: No Body Medical Devices: PT WORE EXTERNAL LIFE VEST 05/15/13, pacer/defibrillator Cardiac Surgery: Yes (pace maker and aicd ) Section: Yes Cholecystectomy: Yes Ear Surgery: No Endocrine Surgery: No Eye Surgery: No Genitourinary Surgery: No Gynecologic Surgery: No Insulin Pump: No Joint Replacement: No Neurologic Surgery: No Oral Surgery: No Pacemaker: Yes Thoracic Surgery: No Tonsillectomy: Yes Other Surgery: Yes (PORT FOR DIALYSIS) Social History Alcohol Use: No Tobacco Use: No Substance Use: Yes (WEED DAILY per hx pt no) Allergies-Medications (Allergen,Severity, Reaction): Coded Allergies: niacin (Verified Allergy, Intermediate, 09/28/17) PT STATES SHE FEELS SHAKY AND SWEATY ketorolac (Unverified Adverse Reaction, Mild, SHAKING, 09/28/17) Reported Meds & Prescriptions Reported Meds & Active Scripts Active Entresto (Sacubitril-Valsartan) 49-51 Mg Tab 1 Tab PO BID Coreg (Carvedilol) 12.5 Mg Tab 25 Mg PO Q12HR Reported Vancomycin Inj (Vancomycin HCl) 1 Gram Inj 1,000 Mg IV MON,SAT,SAT Bumetanide 2 Mg Tab 4 Mg PO BID Review of Systems General / Constitutional: No: Fever Eyes: No: Visual changes HENT: No: Headaches Cardiovascular: Positive: Edema, No: Chest Pain or Discomfort Respiratory: No: Shortness of Breath Gastrointestinal: Positive: Abdominal Pain Genitourinary: No: Dysuria Musculoskeletal: Positive: Edema, Pain Skin: No Rash Neurologic: No: Weakness Psychiatric: No: Depression Endocrine: No: Polydipsia Hematologic/Lymphatic: No: Easy Bruising Physical Exam Narrative GENERAL: Disheveled well-developed patient in no apparent distress. SKIN: Focused skin assessment reveals no rash and nodules. Skin is Warm and dry. HEAD: Atraumatic. Normocephalic. EYES: Pupils equal and round. No scleral icterus. No injection or drainage. ENT: No nasal bleeding or discharge. Mucous membranes pink and moist. NECK: Trachea midline. No JVD. CARDIOVASCULAR: Regular rate and rhythm. No murmur appreciated. RESPIRATORY: No accessory muscle use. Clear to auscultation. Breath sounds equal bilaterally. GASTROINTESTINAL: Abdomen soft, non-tender, nondistended. Hepatic and splenic margins not palpable. MUSCULOSKELETAL: No obvious deformities. No clubbing. No cyanosis. Trace symmetric NEUROLOGICAL: Awake and alert. No obvious cranial nerve deficits. Motor grossly within normal limits. Normal speech. PSYCHIATRIC: Appropriate mood and affect; insight and judgment normal. Data Data Last Documented VS Vital Signs Date Time Temp Pulse Resp B/P (MAP) Pulse Ox O2 Delivery O2 Flow Rate FiO2 12/13/17 23:46 98.0 87 20 120/73 (89) 99 Orders Orders Arterial Blood Gas (Abg) (10/03/17 ) Iv Access Insert/Monitor (10/03/17 00:03) Complete Blood Count With Diff (10/03/17 00:03) Basic Metabolic Panel (Bmp) (10/03/17 00:03) Ondansetron Inj (Zofran Inj) (10/03/17 00:15) Oxycodone-Acetamin 5-325 Mg (Percocet (10/03/17 00:15) Labs Laboratory Tests Test 10/03/17 00:28 White Blood Count 5.6 TH/MM3 Red Blood Count 3.93 MIL/MM3 Hemoglobin 11.2 GM/DL Hematocrit 34.1 % Mean Corpuscular Volume 86.7 FL Mean Corpuscular Hemoglobin 28.4 PG Mean Corpuscular Hemoglobin Concent 32.7 % Red Cell Distribution Width 15.9 % Platelet Count 164 TH/MM3 Mean Platelet Volume 9.6 FL Neutrophils (%) (Auto) 61.2 % Lymphocytes (%) (Auto) 26.9 % Monocytes (%) (Auto) 6.9 % Eosinophils (%) (Auto) 3.7 % Basophils (%) (Auto) 1.3 % Neutrophils # (Auto) 3.4 TH/MM3 Lymphocytes # (Auto) 1.5 TH/MM3 Monocytes # (Auto) 0.4 TH/MM3 Eosinophils # (Auto) 0.2 TH/MM3 Basophils # (Auto) 0.1 TH/MM3 CBC Comment DIFF FINAL Differential Comment MDM Medical Decision Making Medical Screen Exam Complete: Yes Emergency Medical Condition: Yes Medical Record Reviewed: Yes Differential Diagnosis Pulmonary edema, noncompliance, hyperkalemia Narrative Course I have reviewed the patient's electronic medical record. Patient is a very frequent visitor to the ER. This is her 21st visit this year alone She has had 5 ultrasounds in the last month for DVT Patient is challenging IV access I placed a right external jugular IV CBC is normal Metabolic profile is pending ABG is pending. Patient does not have any pitting edema and is clear lungs with saturation of 100% She is not in fluid overload state She needs to be more compliant with dialysis. If she is not hyperkalemic or acidotic she can be discharged and go to dialysis on Saturday. Diagnosis Primary Impression: Chronic leg pain Qualified Codes: M79.604 - Pain in right leg; G89.29 - Other chronic pain Additional Impression: Chronic renal failure Qualified Codes: N18.5 - Chronic kidney disease, stage 5 Ronan Jorgensen MD Oct 03, 2017 00:14
[2017-10-03] MEDS ORDERED: oxyCODONE/ACETAMINOPHEN 5 MG/325 MG TAB PO ONE (00:15)
[2017-10-03] MEDS ORDERED: ONDANSETRON HCL 4 MG/2 ML VIAL IV ONE (00:15)
[2017-10-03 00:37] LABS: AUTOMATED NEUTROPHIL # 3.4 TH/MM3 (1.8-7.7); BASOPHIL # 0.1 TH/MM3 (0-0.2); BASOPHIL % 1.3 % (0.0-2.0); EOSINOPHIL # 0.2 TH/MM3 (0-0.4); EOSINOPHIL % 3.7 % (0.0-4.0); HEMATOCRIT 34.1 % (35.0-46.0); HEMO FLAGS DIFF FINAL; LYMPH % 26.9 % (9.0-44.0); LYMPHOCYTE # 1.5 TH/MM3 (1.0-4.8); MEAN CELL VOLUME 86.7 FL (80.0-100.0); MEAN CORPUSCULAR HEMOGLOBIN 28.4 PG (27.0-34.0); MEAN CORPUSCULAR HGB CONC 32.7 % (32.0-36.0); MONO % 6.9 % (0.0-8.0); NEUT % 61.2 % (16.0-70.0); PLATELET COUNT 164 TH/MM3 (150-450); RED BLOOD COUNT 3.93 MIL/MM3 (4.00-5.30); RED CELL DISTRIBUTION WIDTH 15.9 % (11.6-17.2); WHITE BLOOD COUNT 5.6 TH/MM3 (4.0-11.0)
[2017-10-03 01:27] LABS: BLOOD GAS BASE EXCESS -3.5 mmol/L (-2-2); BLOOD GAS CARBOXYHEMOGLOBIN 3.3 % (0-4); BLOOD GAS HCO3 21 mmol/L (22-26); BLOOD GAS METHEMOGLOBIN 0.4 % (0-2); BLOOD GAS O2 HGB SATURATION 93 % (90-100); BLOOD GAS PCO2 40 mmHg (38-42); BLOOD GAS PO2 84 mmHG (61-120); BLOOD GAS TOTAL HGB 10.7 G/DL (12.0-16.0); CRITICAL VALUE NO; TEMP CORR TO 98.6
[2017-10-03 01:28] LABS: DRAW SITE RT RADIAL; FIO2 21 %; NUMBER OF ARTERIAL PUNCTURES 1; STAT YES; ULNAR PULSE PRESENT
[2017-10-03 03:29] LABS: BICARBONATE 23.9 MEQ/L (21.0-32.0); POTASSIUM 5.5 MEQ/L (3.5-5.1)
--- NOTE | 2017-10-03 03:54 | PD ---
Physical Exam Time Seen by Provider: 03:40 Data Data Last Documented VS Vital Signs Date Time Temp Pulse Resp B/P (MAP) Pulse Ox O2 Delivery O2 Flow Rate FiO2 10/02/17 23:46 98.0 87 20 120/73 (89) 99 Orders Orders Arterial Blood Gas (Abg) (10/03/17 ) Iv Access Insert/Monitor (10/03/17 00:03) Complete Blood Count With Diff (10/03/17 00:03) Basic Metabolic Panel (Bmp) (10/03/17 00:03) Ondansetron Inj (Zofran Inj) (10/03/17 00:15) Oxycodone-Acetamin 5-325 Mg (Percocet (10/03/17 00:15) Arterial Blood Gas (Abg) (10/03/17 01:13) Electrocardiogram (10/03/17 ) Sodium Polysty Sulfate Liq (Kayexalate L (10/03/17 04:15) Ed Discharge Order (10/03/17 04:09) Labs Laboratory Tests Test 10/03/17 00:28 10/03/17 01:13 10/03/17 02:50 White Blood Count 5.6 TH/MM3 Red Blood Count 3.93 MIL/MM3 Hemoglobin 11.2 GM/DL Hematocrit 34.1 % Mean Corpuscular Volume 86.7 FL Mean Corpuscular Hemoglobin 28.4 PG Mean Corpuscular Hemoglobin Concent 32.7 % Red Cell Distribution Width 15.9 % Platelet Count 164 TH/MM3 Mean Platelet Volume 9.6 FL Neutrophils (%) (Auto) 61.2 % Lymphocytes (%) (Auto) 26.9 % Monocytes (%) (Auto) 6.9 % Eosinophils (%) (Auto) 3.7 % Basophils (%) (Auto) 1.3 % Neutrophils # (Auto) 3.4 TH/MM3 Lymphocytes # (Auto) 1.5 TH/MM3 Monocytes # (Auto) 0.4 TH/MM3 Eosinophils # (Auto) 0.2 TH/MM3 Basophils # (Auto) 0.1 TH/MM3 CBC Comment DIFF FINAL Differential Comment Blood Gas Puncture Site RT RADIAL Blood Gas Patient Temperature 98.6 Blood Gas HCO3 21 mmol/L Blood Gas Base Excess -3.5 mmol/L Blood Gas Oxygen Saturation 93 % Arterial Blood pH 7.34 Arterial Blood Partial Pressure CO2 40 mmHg Arterial Blood Partial Pressure O2 84 mmHG Arterial Blood Oxygen Content 14.0 Vol % Arterial Blood Carboxyhemoglobin 3.3 % Arterial Blood Methemoglobin 0.4 % Blood Gas Hemoglobin 10.7 G/DL Blood Gas Inspired Oxygen 21 % Blood Urea Nitrogen 50 MG/DL Creatinine 4.37 MG/DL Random Glucose 85 MG/DL Calcium Level 8.0 MG/DL Sodium Level 140 MEQ/L Potassium Level 5.5 MEQ/L Chloride Level 109 MEQ/L Carbon Dioxide Level 23.9 MEQ/L Anion Gap 7 MEQ/L Estimat Glomerular Filtration Rate 12 ML/MIN MDM Medical Record Reviewed: Yes Supervised Visit with KUNAL: No Narrative Course Please see previous providers notes. I assumed care to follow-up on lab work. The potassium is elevated at 5.5. Unfortunately this patient has a history of noncompliance with her dialysis appointments, missed her appointment this Saturday and Saturday. 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 Allen who recommends 30 g dose of Kayexalate and follow-up tomorrow for her dialysis appointment. Discussed with the patient to reports that she will not miss her dialysis appointments anymore. She is stable for discharge. Diagnosis Primary Impression: Chronic leg pain Qualified Codes: M79.604 - Pain in right leg; G89.29 - Other chronic pain Additional Impressions: Chronic renal failure Qualified Codes: N18.5 - Chronic kidney disease, stage 5 Hyperkalemia Additional Instruction: Follow-up tomorrow at dialysis as scheduled. Return for any emergent medical conditions. Med/Other Pt SpecificInfo: No Change to Meds Disposition: 01 DISCHARGE HOME Condition: Stable Michael Welsh Oct 03, 2017 03:54
[2017-10-03] MEDS ORDERED: SODIUM POLYSTYRENE SULFONATE SUSP 15 GM/60 ML CUP PO ONE (04:15)
--- NOTE | 2017-10-03 14:09 | EKG ---
Date Performed: 10/03/2017 Time Performed: 03:46:44 PTAGE: 27 years EKG: Sinus rhythm LEFT VENTRICULAR HYPERTROPHY AND ST-T CHANGE POSSIBLE SEPTAL MYOCARDIAL INFARCTION ABNORMAL ECG Comp ared to prior tracing no significant change PREVIOUS TRACING DOCTOR: Idalia Bai Interpretating Date/Time 10/03/2017 14:06:57
== END 2017-10-03 05:50 | disposition home or self-care (01) ==
LOC: NEPD 23:41
DX: M79.604 Pain in right leg (principal); G89.29 Other chronic pain; E87.5 Hyperkalemia; I42.9 Cardiomyopathy, unspecified; I50.9 Heart failure, unspecified; E11.22 Type 2 diabetes mellitus with diabetic chronic kidney disease; I13.2 Hypertensive heart and chronic kidney disease with heart failure and with stage 5 chronic kidney disease, or end stage renal disease; I51.7 Cardiomegaly; R94.31 Abnormal electrocardiogram [ECG] [EKG]
CPT/HCPCS: 36600; 80048; 82805; 85025; 93005; 99284; J2405

== ENCOUNTER 2017-10-17 19:00 | Emergency (ER) | payer MEDICARE, OTHER ==
[~2017-10-17] VITALS: Ht 162.6 cm; Wt 84.8 kg
[2017-10-17 19:09] VITALS: BP 131/75; PULSE 92; RESP 18; TEMP 98.5; O2SAT 97
--- NOTE | 2017-10-17 19:42 | PD ---
HPI Chief Complaint: Cold / Flu Symptoms Time Seen by Provider: 19:26 Travel History International Travel<30 days: No Contact w/Intl Traveler<30days: No Traveled to known affect area: No History of Present Illness HPI The patient is a 27-year-old female, frequent visitor to emergency department, who complains of a cough, nausea, vomiting and diarrhea for approximately 2 days. She states she brings up clear mucus with the cough. She denies any fever. She also complains of some pain around her port for about a week and they took a culture yesterday at home around the port where she said she had some drainage. She states she feels dehydrated. She has renal failure and gets dialysis Saturday, Saturday and Saturday. 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 PFSH Past Medical History Hx Anticoagulant Therapy: No Arthritis: No Asthma: No Autoimmune Disease: No Blood Disorders: No Anxiety: Yes Depression: No Heart Rhythm Problems: No Cancer: No Cardiac Catheterization: Yes Cardiomyopathy: Yes Cardiovascular Problems: Yes (htn on meds) High Cholesterol: No Chemotherapy: No Chest Pain: Yes Congestive Heart Failure: Yes COPD: No Cerebrovascular Accident: No Diabetes: Yes Dialysis: Yes (sat) Diminished Hearing: No Endocrine: Yes Gastrointestinal Disorders: Yes (Pancreatitis) GERD: No Genitourinary: No Headaches: Yes Hiatal Hernia: No Heparin Induced Thrombocytopen: No Hypertension: Yes Immune Disorder: No Implanted Vascular Access Dvce: Yes (a/v shunt lt arm 09/09/17) Kidney Stones: No Musculoskeletal: No Neurologic: No Psychiatric: No Reproductive: No Respiratory: No Integumentary: Yes Immunizations Current: Yes Migraines: Yes Radiation Therapy: No Renal Failure: No Seizures: No Sickle Cell Disease: No Sleep Apnea: No Thyroid Disease: No Ulcer: No ?: Not : 1 Para: 1 Miscarriage: 0 : 0 Tubal Ligation: Yes Past Surgical History Abdominal Surgery: No AICD: Yes Arteriovenous Shunt: No Body Medical Devices: PT WORE EXTERNAL LIFE VEST 05/15/13, pacer/defibrillator Cardiac Surgery: Yes (pace maker and aicd ) Section: Yes Cholecystectomy: Yes Ear Surgery: No Endocrine Surgery: No Eye Surgery: No Genitourinary Surgery: No Gynecologic Surgery: No Insulin Pump: No Joint Replacement: No Neurologic Surgery: No Oral Surgery: No Pacemaker: Yes Thoracic Surgery: No Tonsillectomy: Yes Other Surgery: Yes (PORT FOR DIALYSIS) Social History Alcohol Use: No Tobacco Use: No Substance Use: Yes (WEED DAILY per hx pt no) Allergies-Medications (Allergen,Severity, Reaction): Coded Allergies: niacin (Verified Allergy, Intermediate, 09/28/17) PT STATES SHE FEELS SHAKY AND SWEATY ketorolac (Verified Adverse Reaction, Mild, SHAKING, 10/17/17) Reported Meds & Prescriptions Reported Meds & Active Scripts Active Entresto (Sacubitril-Valsartan) 49-51 Mg Tab 1 Tab PO BID Coreg (Carvedilol) 12.5 Mg Tab 25 Mg PO Q12HR Reported Vancomycin Inj (Vancomycin HCl) 1 Gram Inj 1,000 Mg IV MON,WED,SAT Bumetanide 2 Mg Tab 4 Mg PO BID Review of Systems Except as stated in HPI: all other systems reviewed are Neg Physical Exam Narrative GENERAL: The patient is alert, oriented 3 and minimal apparent distress with her abdominal discomfort. She does not appear dehydrated. Her vital signs are normal. SKIN: Focused skin assessment warm/dry. HEAD: Atraumatic. Normocephalic. EYES: Pupils equal and round. No scleral icterus. No injection or drainage. ENT: No nasal bleeding or discharge. Mucous membranes pink and moist. NECK: Trachea midline. No JVD. CARDIOVASCULAR: Regular rate and rhythm. No murmur appreciated. RESPIRATORY: No accessory muscle use. Clear to auscultation. Breath sounds equal bilaterally. GASTROINTESTINAL: Abdomen soft, with diffuse tenderness all 4 quadrants, nondistended. Hepatic and splenic margins not palpable. No guarding or rebound is present. MUSCULOSKELETAL: No obvious deformities. No clubbing. No cyanosis. No edema. NEUROLOGICAL: Awake and alert. No obvious cranial nerve deficits. Motor grossly within normal limits. Normal speech. PSYCHIATRIC: Appropriate mood and affect; insight and judgment normal. Data Data Last Documented VS Vital Signs Date Time Temp Pulse Resp B/P (MAP) Pulse Ox O2 Delivery O2 Flow Rate FiO2 10/17/17 19:50 87 18 94 Room Air 10/17/17 19:50 137/73 (94) 10/17/17 19:09 98.5 Orders Orders Complete Blood Count With Diff (10/17/17 19:37) Comprehensive Metabolic Panel (10/17/17 19:37) Chest, Pa & Lat (10/17/17 19:37) Morphine Inj (Morphine Inj) (10/17/17 20:30) Ondansetron Inj (Zofran Inj) (10/17/17 20:30) Sodium Chlor 0.9% 1000 Ml Inj (Ns 1000 M (10/17/17 20:16) Labs Laboratory Tests Test 10/17/17 19:50 White Blood Count 6.8 TH/MM3 Red Blood Count 4.08 MIL/MM3 Hemoglobin 11.2 GM/DL Hematocrit 35.4 % Mean Corpuscular Volume 86.8 FL Mean Corpuscular Hemoglobin 27.4 PG Mean Corpuscular Hemoglobin Concent 31.5 % Red Cell Distribution Width 15.2 % Platelet Count 146 TH/MM3 Mean Platelet Volume 9.9 FL Neutrophils (%) (Auto) 73.1 % Lymphocytes (%) (Auto) 18.8 % Monocytes (%) (Auto) 4.6 % Eosinophils (%) (Auto) 2.4 % Basophils (%) (Auto) 1.1 % Neutrophils # (Auto) 4.9 TH/MM3 Lymphocytes # (Auto) 1.3 TH/MM3 Monocytes # (Auto) 0.3 TH/MM3 Eosinophils # (Auto) 0.2 TH/MM3 Basophils # (Auto) 0.1 TH/MM3 CBC Comment DIFF FINAL Differential Comment Blood Urea Nitrogen 35 MG/DL Creatinine 3.30 MG/DL Random Glucose 84 MG/DL Total Protein 6.5 GM/DL Albumin 3.1 GM/DL Calcium Level 8.5 MG/DL Alkaline Phosphatase 122 U/L Aspartate Amino Transf (AST/SGOT) 112 U/L Alanine Aminotransferase (ALT/SGPT) 261 U/L Total Bilirubin 0.4 MG/DL Sodium Level 140 MEQ/L Potassium Level 4.3 MEQ/L Chloride Level 108 MEQ/L Carbon Dioxide Level 21.9 MEQ/L Anion Gap 10 MEQ/L Estimat Glomerular Filtration Rate 17 ML/MIN MDM Medical Decision Making Medical Screen Exam Complete: Yes Emergency Medical Condition: Yes Medical Record Reviewed: Yes Interpretation(s) The CBC is normal except for hemoglobin of 11.2. The chest x-ray shows stable chest with no acute disease. The complete metabolic profile shows a BUN of 35, creatinine 3.3, GFR of 17 with AST of 112 and ALT of 261 and alkaline phosphatase 122 and albumin 3.1. Differential Diagnosis Congestive heart failure, cardiomyopathy, renal failure, electrolyte disorder, anemia, viral gastroenteritis, pneumonia, bronchitis, viral upper respiratory infection Narrative Course The patient's congestive heart failure appears stable. She does not appear to be very dehydrated. We did give her a liter of fluid. She feels better at this time, it is now 8:45 PM. She likely has a gastroenteritis. She will be given Zofran and tramadol. Diagnosis Primary Impression: Viral gastroenteritis Kavin Bearden MD Oct 17, 2017 19:42
[2017-10-17 19:50] VITALS: BP 137/73; PULSE 87; RESP 18; O2SAT 94
[2017-10-17 20:09] LABS: AUTOMATED NEUTROPHIL # 4.9 TH/MM3 (1.8-7.7); BASOPHIL # 0.1 TH/MM3 (0-0.2); BASOPHIL % 1.1 % (0.0-2.0); EOSINOPHIL # 0.2 TH/MM3 (0-0.4); EOSINOPHIL % 2.4 % (0.0-4.0); HEMATOCRIT 35.4 % (35.0-46.0); HEMOGLOBIN 11.2 GM/DL (11.6-15.3); LYMPH % 18.8 % (9.0-44.0); LYMPHOCYTE # 1.3 TH/MM3 (1.0-4.8); MEAN CELL VOLUME 86.8 FL (80.0-100.0); MEAN CORPUSCULAR HEMOGLOBIN 27.4 PG (27.0-34.0); MEAN CORPUSCULAR HGB CONC 31.5 % (32.0-36.0); MEAN PLATELET VOLUME 9.9 FL (7.0-11.0); MONO % 4.6 % (0.0-8.0); MONOCYTE # 0.3 TH/MM3 (0-0.9); NEUT % 73.1 % (16.0-70.0); PLATELET COUNT 146 TH/MM3 (150-450); RED BLOOD COUNT 4.08 MIL/MM3 (4.00-5.30); RED CELL DISTRIBUTION WIDTH 15.2 % (11.6-17.2); WHITE BLOOD COUNT 6.8 TH/MM3 (4.0-11.0)
[2017-10-17] MEDS ORDERED: SODIUM CHLOR 0.9% 1000 ML INJ 1,000 ML IV SCH (20:16)
[2017-10-17 20:17] LABS: CHLORIDE 108 MEQ/L (98-107); SODIUM (NA) 140 MEQ/L (136-145)
[2017-10-17 20:20] LABS: CALCIUM 8.5 MG/DL (8.5-10.1)
[2017-10-17 20:21] LABS: ALBUMIN 3.1 GM/DL (3.4-5.0); BICARBONATE 21.9 MEQ/L (21.0-32.0); BLOOD UREA NITROGEN 35 MG/DL (7-18); GLUCOSE,RANDOM 84 MG/DL (74-106)
[2017-10-17 20:24] LABS: ALT (GPT) 261 U/L (10-53); AST (GOT) 112 U/L (15-37); GLOMERULAR FILTRATION RATE 17 ML/MIN (>89)
[2017-10-17 20:25] LABS: TOTAL BILIRUBIN ADULT 0.4 MG/DL (0.2-1.0); TOTAL PROTEIN 6.5 GM/DL (6.4-8.2)
[2017-10-17 20:27] LABS: ALKALINE PHOSPHATASE 122 U/L (45-117)
[2017-10-17] MEDS ORDERED: MORPHINE SULFATE 4 MG/ML INJ IV PUSH ONE (20:30)
[2017-10-17] MEDS ORDERED: ONDANSETRON HCL 4 MG/2 ML VIAL IVP ONE (20:30)
[2017-10-17 20:35] VITALS: BP 134/87; PULSE 87; RESP 18; O2SAT 97
--- NOTE | 2017-10-17 20:35 | RADRPT ---
EXAM DATE/TIME: 10/17/2017 19:44 [facility] COMPARISON: CHEST SINGLE AP, September 16, 2017, 4:52. INDICATIONS : Cough and shortness of breath. MEDICAL HISTORY : Diabetes mellitus type I. Congestive heart failure. Cardiomyopathy. Hypertension. Pancreatitis SURGICAL HISTORY : Tubal ligation. Tonsillectomy. Pacemaker. Cholecystectomy. Tubal ligation. section. AVF le ft arm ENCOUNTER: Initial ACUITY: 1 day PAIN SCORE: 0/10 LOCATION: Bilateral chest FINDINGS: Pacemaker device is noted with control pack over the left chest. Right chest dialysis catheter is pre sent. Lungs are focally clear. No effusion suspected. Cardiac contours are stable. Osseous structures are intact CONCLUSION: Stable chest with no acute disease Josef Moe MD on October 17, 2017 at 20:32 Board Certified Radiologist. This report was verified electronically.
[2017-10-17] MEDS ORDERED: TRAM50TA PO (20:48)
[2017-10-17] MEDS ORDERED: ZOFR4TAB PO (20:48)
[2017-10-17 22:24] VITALS: BP 157/92; PULSE 88; RESP 18; O2SAT 97
== END 2017-10-17 21:45 | disposition home or self-care (01) ==
LOC: PHED 19:00
DX: A08.4 Viral intestinal infection, unspecified (principal); I13.0 Hypertensive heart and chronic kidney disease with heart failure and stage 1 through stage 4 chronic kidney disease, or unspecified chronic kidney disease; Z99.2 Dependence on renal dialysis; I50.9 Heart failure, unspecified
CPT/HCPCS: 71020; 80053; 85025; 96361; 96374; 96375; 99284; J2270; J2405; J7030

== ENCOUNTER 2017-10-18 11:44 | Inpatient (IN) | payer MEDICARE, OTHER ==
[~2017-10-18] VITALS: Ht 162.6 cm; Wt 84.0 kg
[2017-10-18] VITALS (10 sets, daily range): BP systolic 117–157; BP diastolic 69–97; PULSE 97–117; RESP 16–20; TEMP 98.3–99.2; O2SAT 93–99
[~2017-10-18 11:44] MED LIST changes: +TRAM50TA PO; +ZOFR4TAB PO
[2017-10-18 13:09] LABS: AUTOMATED NEUTROPHIL # 6.4 TH/MM3 (1.8-7.7); BASOPHIL # 0.1 TH/MM3 (0-0.2); BASOPHIL % 0.9 % (0.0-2.0); EOSINOPHIL # 0.1 TH/MM3 (0-0.4); EOSINOPHIL % 1.6 % (0.0-4.0); HEMATOCRIT 32.8 % (35.0-46.0); HEMOGLOBIN 11.2 GM/DL (11.6-15.3); LYMPH % 10.4 % (9.0-44.0); LYMPHOCYTE # 0.8 TH/MM3 (1.0-4.8); MEAN CELL VOLUME 86.8 FL (80.0-100.0); MEAN CORPUSCULAR HEMOGLOBIN 29.6 PG (27.0-34.0); MEAN CORPUSCULAR HGB CONC 34.1 % (32.0-36.0); MEAN PLATELET VOLUME 10.2 FL (7.0-11.0); MONO % 5.1 % (0.0-8.0); MONOCYTE # 0.4 TH/MM3 (0-0.9); PLATELET COUNT 131 TH/MM3 (150-450); RED BLOOD COUNT 3.77 MIL/MM3 (4.00-5.30); RED CELL DISTRIBUTION WIDTH 15.9 % (11.6-17.2); WHITE BLOOD COUNT 7.8 TH/MM3 (4.0-11.0)
--- NOTE | 2017-10-18 13:15 | PD ---
HPI Chief Complaint: General Weakness Time Seen by Provider: 13:04 Travel History International Travel<30 days: No Contact w/Intl Traveler<30days: No Traveled to known affect area: No History of Present Illness HPI 27-year-old female came to the emergency room with history of vomiting and diarrhea. Patient was in the ER yesterday with the same complain. She has significant past medical history the form of cardiomyopathy and congestive heart failure. Patient has an AICD in place. She says she has been unable to get hold anything down. She is also complaining of some abdominal and chest discomfort. She has been coughing she said. She has had positive sick contact in the form of her children being sick. Patient was tachycardic in triage upon arrival but right now her vital signs are stable. No history of syncopal episode. [facility] Past Medical History Narrative Medical List of her past medical, surgical, social and family history is reviewed from the nursing note. Hx Anticoagulant Therapy: No Arthritis: No Asthma: No Autoimmune Disease: No Blood Disorders: No Anxiety: Yes Depression: No Heart Rhythm Problems: No Cancer: No Cardiac Catheterization: Yes Cardiomyopathy: Yes Cardiovascular Problems: Yes (htn on meds) High Cholesterol: No Chemotherapy: No Chest Pain: Yes Congestive Heart Failure: Yes COPD: No Cerebrovascular Accident: No Diabetes: Yes Patient Takes Glucophage: No Dialysis: Yes (sat) Diminished Hearing: No Endocrine: Yes Gastrointestinal Disorders: Yes (Pancreatitis) GERD: No Genitourinary: No Headaches: Yes Hiatal Hernia: No Heparin Induced Thrombocytopen: No Hypertension: Yes Immune Disorder: No Implanted Vascular Access Dvce: Yes (a/v shunt lt arm 09/09/17) Kidney Stones: No Musculoskeletal: No Neurologic: No Psychiatric: No Reproductive: No Respiratory: No Integumentary: Yes Immunizations Current: Yes Migraines: Yes Radiation Therapy: No Renal Failure: No Seizures: No Sickle Cell Disease: No Sleep Apnea: No Thyroid Disease: No Ulcer: No Tetanus Vaccination: < 5 Years Influenza Vaccination: Yes ?: Not : 1 Para: 1 Miscarriage: 0 : 0 Tubal Ligation: Yes Past Surgical History Abdominal Surgery: No AICD: Yes Arteriovenous Shunt: No Body Medical Devices: PT WORE EXTERNAL LIFE VEST 05/15/13, pacer/defibrillator Cardiac Surgery: Yes (pace maker and aicd) Section: Yes Cholecystectomy: Yes Ear Surgery: No Endocrine Surgery: No Eye Surgery: No Genitourinary Surgery: No Gynecologic Surgery: No Insulin Pump: No Joint Replacement: No Neurologic Surgery: No Oral Surgery: No Pacemaker: Yes Thoracic Surgery: No Tonsillectomy: Yes Other Surgery: Yes (PORT FOR DIALYSIS) Social History Alcohol Use: No Tobacco Use: No Substance Use: Yes (WEED DAILY per hx) Allergies-Medications (Allergen,Severity, Reaction): Coded Allergies: niacin (Verified Allergy, Intermediate, 10/18/17) PT STATES SHE FEELS SHAKY AND SWEATY ketorolac (Verified Adverse Reaction, Mild, SHAKING, 10/18/17) Comments List of her allergies reviewed from the nursing note. Reported Meds & Prescriptions Reported Meds & Active Scripts Active Entresto (Sacubitril-Valsartan) 49-51 Mg Tab 1 Tab PO BID Coreg (Carvedilol) 12.5 Mg Tab 25 Mg PO Q12HR Reported Bumetanide 2 Mg Tab 4 Mg PO BID Narrative Medication List of her home medications reviewed from the nursing note. Review of Systems Except as stated in HPI: all other systems reviewed are Neg Respiratory: Positive: Cough Gastrointestinal: Positive: Nausea, Vomiting, Diarrhea Physical Exam Narrative GENERAL: Awake, alert, moderate distress, obese SKIN: Focused skin assessment warm/dry. Pale HEAD: Atraumatic. Normocephalic. EYES: Pupils equal and round. No scleral icterus. No injection or drainage. ENT: No nasal bleeding or discharge. Mucous membranes pink and moist. NECK: Trachea midline. No JVD. CARDIOVASCULAR: Regular rate and rhythm. No murmur appreciated. RESPIRATORY: No accessory muscle use. Decreased air entry with bilateral wheezing GASTROINTESTINAL: Abdomen soft, non-tender, nondistended. Hepatic and splenic margins not palpable. MUSCULOSKELETAL: No obvious deformities. No clubbing. No cyanosis. No edema. NEUROLOGICAL: Awake and alert. No obvious cranial nerve deficits. Motor grossly within normal limits. Normal speech. PSYCHIATRIC: Appropriate mood and affect; insight and judgment normal. Data Data Last Documented VS Vital Signs Date Time Temp Pulse Resp B/P (MAP) Pulse Ox O2 Delivery O2 Flow Rate FiO2 10/18/17 13:45 99 Nasal Cannula 2.00 10/18/17 13:35 10/18/17 13:09 97 18 10/18/17 11:54 98.8 Orders Orders Complete Blood Count With Diff (10/18/17 12:01) Comprehensive Metabolic Panel (10/18/17 12:01) Prothrombin Time / Inr (Pt) (10/18/17 12:01) Act Partial Throm Time (Ptt) (10/18/17 12:01) Lactic Acid Sepsis Protocol (10/18/17 12:01) Magnesium (Mg) (10/18/17 12:01) Phosphorus (Po4) (10/18/17 12:01) Ckmb (Isoenzyme) Profile (10/18/17 12:01) Troponin I (10/18/17 12:01) Blood Culture (10/18/17 12:01) Chest, Pa & Lat (10/18/17 12:01) Iv Access Insert/Monitor (10/18/17 13:17) Ecg Monitoring (10/18/17 13:17) Oximetry (10/18/17 13:17) Oxygen Administration (10/18/17 13:17) Sodium Chloride 0.9% Flush (Ns Flush) (10/18/17 13:30) Albuterol-Ipratropium Neb (Duoneb Neb) (10/18/17 13:30) Morphine Inj (Morphine Inj) (10/18/17 13:30) Influenzae A/B Antigen (10/18/17 13:23) Morphine Inj (Morphine Inj) (10/18/17 13:30) Electrocardiogram (10/18/17 ) Admit Order (Ed Use Only) (10/18/17 14:47) Place In Observation (10/18/17 ) Vital Signs (Adult) Q4H (10/18/17 14:47) Activity Oob Ad Denisa (10/18/17 14:47) Title Clerk Automobile / Telemetry .CONTINUOUS (10/18/17 14:47) Intake + Output JAYLEN.QSHIFT (10/18/17 14:47) Sodium Chloride 0.9% Flush (Ns Flush) (10/18/17 15:00) Sodium Chloride 0.9% Flush (Ns Flush) (10/18/17 21:00) Ondansetron Inj (Zofran Inj) (10/18/17 15:00) Comprehensive Metabolic Panel (10/19/17 06:00) Complete Blood Count With Diff (10/19/17 06:00) Naloxone Inj (Narcan Inj) (10/18/17 15:00) Docusate Sodium-Senna ([place]-Colace) (10/18/17 21:00) Magnesium Hydroxide Liq (Milk Of Magnesi (10/18/17 15:00) Sennosides (Senokot) (10/18/17 15:00) Bisacodyl Supp (Dulcolax Supp) (10/18/17 16:00) Lactulose Liq (Lactulose Liq) (10/18/17 16:00) Lipase (10/18/17 12:41) Labs Laboratory Tests Test 10/18/17 12:41 10/18/17 12:45 10/18/17 14:05 White Blood Count 7.8 TH/MM3 Red Blood Count 3.77 MIL/MM3 Hemoglobin 11.2 GM/DL Hematocrit 32.8 % Mean Corpuscular Volume 86.8 FL Mean Corpuscular Hemoglobin 29.6 PG Mean Corpuscular Hemoglobin Concent 34.1 % Red Cell Distribution Width 15.9 % Platelet Count 131 TH/MM3 Mean Platelet Volume 10.2 FL Neutrophils (%) (Auto) 82.0 % Lymphocytes (%) (Auto) 10.4 % Monocytes (%) (Auto) 5.1 % Eosinophils (%) (Auto) 1.6 % Basophils (%) (Auto) 0.9 % Neutrophils # (Auto) 6.4 TH/MM3 Lymphocytes # (Auto) 0.8 TH/MM3 Monocytes # (Auto) 0.4 TH/MM3 Eosinophils # (Auto) 0.1 TH/MM3 Basophils # (Auto) 0.1 TH/MM3 CBC Comment DIFF FINAL Differential Comment Blood Urea Nitrogen 35 MG/DL Creatinine 3.58 MG/DL Random Glucose 116 MG/DL Total Protein 6.4 GM/DL Albumin 3.1 GM/DL Calcium Level 8.4 MG/DL Phosphorus Level 4.9 MG/DL Magnesium Level 1.8 MG/DL Alkaline Phosphatase 163 U/L Aspartate Amino Transf (AST/SGOT) 108 U/L Alanine Aminotransferase (ALT/SGPT) 255 U/L Total Bilirubin 0.7 MG/DL Sodium Level 140 MEQ/L Potassium Level 4.7 MEQ/L Chloride Level 107 MEQ/L Carbon Dioxide Level 18.8 MEQ/L Anion Gap 14 MEQ/L Estimat Glomerular Filtration Rate 15 ML/MIN Total Creatine Kinase 62 U/L Troponin I 0.03 NG/ML Lipase 313 U/L Lactic Acid Level 0.7 mmol/L B-Type Natriuretic Peptide 4955 PG/ML Prothrombin Time 12.0 SEC Prothromb Time International Ratio 1.2 RATIO Activated Partial Thromboplast Time 26.6 SEC MDM Medical Decision Making Medical Screen Exam Complete: Yes Emergency Medical Condition: Yes Medical Record Reviewed: Yes Interpretation(s) Twelve-lead EKG was reviewed by me. Normal sinus rhythm, left axis deviation, lateral T wave inversion, LVH by voltage criteria. Heart rate of 86 bpm. Differential Diagnosis Viral illness, acute gastroenteritis, dehydration, pneumonia Narrative Course 2:36 PM patient was given DuoNeb nebs 2. Chest x-rays negative for any pneumonia. Blood test results are back and patient has significant renal insufficiency which has been unchanged from the past. However her liver function test is elevated. There was blood test done yesterday during her visit and between yesterday and today the LFTs have been the highest. Patient initially was given IV fluid. However given her poor ejection fraction and poor renal function is difficult to give her too much fluid without making her fluid overloaded. Since patient has returned within 24 hours at this point I think it would be better to admit the patient. Awaiting for the hospitalist to call back. Procedures EKG Prior to Arrival: No Diagnosis Primary Impression: Intractable vomiting Qualified Codes: R11.2 - Nausea with vomiting, unspecified Additional Impressions: Renal insufficiency Elevated liver function tests Asthma exacerbation Qualified Codes: J45.41 - Moderate persistent asthma with (acute) exacerbation Diarrhea Qualified Codes: R19.7 - Diarrhea, unspecified Admitting Information Admitting Physician Requests: it Nicol Koenig MD Oct 18, 2017 13:15
--- NOTE | 2017-10-18 13:29 | RADRPT ---
EXAM DATE/TIME: 10/18/2017 13:09 [facility] COMPARISON: CHEST PA & LAT, October 17, 2017, 19:44. INDICATIONS : Chest pain for one week. MEDICAL HISTORY : Diabetes mellitus type II. Congestive heart failure. Hypertension. Cardiomyopathy. Pancreatitis. SURGICAL HISTORY : Pacemaker. [employer]-port. AVF left arm. ENCOUNTER: Initial ACUITY: 1 week PAIN SCORE: 8/10 LOCATION: Bilateral chest FINDINGS: Stable right sided tunneled dialysis catheter. Stable single lead AICD device. Cardiac silhouette rem ains enlarged. No new focal pleural or parenchymal opacities. Remainder of the exam is unchanged. CONCLUSION: 1. No acute abnormality or significant interval change. Vinay Waters MD on October 18, 2017 at 13:27 Board Certified Radiologist. This report was verified electronically.
[2017-10-18] MEDS ORDERED: MORPHINE SULFATE 4 MG/ML INJ IV PUSH ONE (13:30)
[2017-10-18] MEDS ORDERED: SODIUM CHLORIDE 0.9% FLUSH 10 ML FLUSH IVF PRN (13:30)
[2017-10-18] MEDS ORDERED: MORPHINE SULFATE 2 MG/ML INJ IV PUSH ONE (13:30)
[2017-10-18 13:35] LABS: ALBUMIN 3.1 GM/DL (3.4-5.0); AST (GOT) 108 U/L (15-37); BICARBONATE 18.8 MEQ/L (21.0-32.0); BLOOD UREA NITROGEN 35 MG/DL (7-18); CALCIUM 8.4 MG/DL (8.5-10.1); CHLORIDE 107 MEQ/L (98-107); CREATININE 3.58 MG/DL (0.50-1.00); GLOMERULAR FILTRATION RATE 15 ML/MIN (>89); GLUCOSE,RANDOM 116 MG/DL (74-106); MAGNESIUM 1.8 MG/DL (1.5-2.5); PHOSPHORUS 4.9 MG/DL (2.5-4.9); SODIUM (NA) 140 MEQ/L (136-145)
[2017-10-18 13:36] LABS: ALT (GPT) 255 U/L (10-53)
[2017-10-18 13:38] LABS: ALKALINE PHOSPHATASE 163 U/L (45-117); TOTAL BILIRUBIN ADULT 0.7 MG/DL (0.2-1.0); TOTAL PROTEIN 6.4 GM/DL (6.4-8.2); TROPONIN I 0.03 NG/ML (0.02-0.05)
[2017-10-18] MEDS: RESP: ALBUTEROL 2.5 MG/IPRATROPIUM 0.5 MG NEB (SCH) INH (14:18)
[2017-10-18 14:22] LABS: INTERNATIONAL NORMALIZED RATIO 1.2 RATIO
[2017-10-18] MEDS ORDERED: SODIUM CHLORIDE 0.9% FLUSH 10 ML FLUSH IV FLUSH PRN (15:00)
[2017-10-18] MEDS ORDERED: MAGNESIUM HYDROXIDE SUSP 30 ML CUP PO PRN (15:00)
[2017-10-18] MEDS ORDERED: NALOXONE HCL 0.4 MG/ML AMP IV PUSH PRN (15:00)
[2017-10-18] MEDS ORDERED: SENNOSIDES 8.6 MG TAB PO PRN (15:00)
[2017-10-18] MEDS ORDERED: methylPREDNISolone SOD SUCC 125 MG/2 ML VIAL IV PUSH ONE (15:15)
[2017-10-18] MEDS ORDERED: BISACODYL 10 MG SUPP RECTAL PRN (16:00)
[2017-10-18] MEDS ORDERED: LACTULOSE SYRUP 20 GM/30 ML CUP PO PRN (16:00)
--- NOTE | 2017-10-18 16:56 | HHI.HP ---
[facility] No Primary Care Physician Admission Diagnosis intractable vomiting and diarrhea, renal insufficiency, elevated LFT Diagnoses: Travel History International Travel<30 Days: No Contact w/Intl Traveler <30 Da: No Traveled to Known Affected Are: No History of Present Illness Patient is a 27-year-old female with past medical history of cardiomyopathy with ejection fraction of 15% status post AICD, ESRD on hemodialysis on Saturday, Saturday, Saturday, anxiety, diabetes diet controlled, hypertension and neuropathy presented to the emergency room with complaints of nausea and vomiting 3 days. She denies eating anything different. She denies any sick contacts. She states that on Saturday she went for hemodialysis and she was started on Fortaz because she there was drainage from her port. Patient states she had fevers however she never took her temperature and admits to chills. She states that she has a runny nose and a cough for the past 3 days. She is to take her flu vaccine. She complains of abdominal pain mainly in the epigastric and left upper quadrant areas. She admits to having trouble breathing especially taking deep breaths. She has pain in her ribs. She states that the area where the port is is very tender. 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 Allen. She states that she has been compliant with fluid restriction at home and only drinks 32 ounces a day Review of Systems Except as stated in HPI: all other systems reviewed are Neg Past Family Social History Past Medical History cardiomyopathy with ejection fraction of 15% status post AICD, ESRD on hemodialysis on MWF, anxiety, diabetes diet controlled, hypertension and neuropathy Past Surgical History Tubal ligation, cholecystectomy, 1, port placement, AICD, tonsillectomy and adenectomy Reported Medications Reported Meds & Active Scripts Active Entresto (Sacubitril-Valsartan) 49-51 Mg Tab 1 Tab PO BID Coreg (Carvedilol) 12.5 Mg Tab 25 Mg PO Q12HR Reported Bumetanide 2 Mg Tab 4 Mg PO BID Allergies: Coded Allergies: niacin (Verified Allergy, Intermediate, 10/18/17) PT STATES SHE FEELS SHAKY AND SWEATY ketorolac (Verified Adverse Reaction, Mild, SHAKING, 10/18/17) Family History Mother has RA and hypertension Father from pancreatic rupture Social History Quit smoking since 2012, used to smoke less than a half a pack a day for 5 years. Denies alcohol use. Admits to smoking weed once in a while. Physical Exam Vital Signs Vital Signs Date Time Temp Pulse Resp B/P (MAP) Pulse Ox O2 Delivery O2 Flow Rate FiO2 10/18/17 15:54 99 Nasal Cannula 2.00 10/18/17 15:52 99.2 100 18 157/85 (109) 96 10/18/17 15:34 98 17 134/69 (90) 100 Nasal Cannula 2.00 10/18/17 13:45 99 Nasal Cannula 2.00 10/18/17 13:37 Nasal Cannula 2.00 10/18/17 13:35 95 10/18/17 13:09 97 18 141/91 (108) 95 Room Air 10/18/17 11:54 98.8 106 20 146/94 (111) 93 Room Air Physical Exam GENERAL: laying in bed SKIN: dry skin HEAD: Atraumatic. Normocephalic. No temporal or scalp tenderness. EYES: Pupils equal round and reactive. Extraocular motions intact. ENT: Nose without drainage. Throat without erythema. Uvula midline. Airway patent. NECK: Trachea midline. No cervical lymphadenopathy. CHEST/CARDIOVASCULAR: Tender to palpation around the port site. couldn't express any purulent drainage. Regular rate and rhythm without murmurs RESPIRATORY: Clear to auscultation. mild exp wheezes GASTROINTESTINAL: Abdomen soft,obese, nondistended, some tenderness in epigastric and left upper quadrant. No palpable masses. No guarding. MUSCULOSKELETAL: Extremities without edema. No calf tenderness. Negative Homans sign bilaterally. NEUROLOGICAL: Awake and alert. Motor and sensory grossly within normal limits. Normal speech. Laboratory Laboratory Tests Test 10/18/17 12:41 10/18/17 12:45 10/18/17 14:05 White Blood Count 7.8 Red Blood Count 3.77 Hemoglobin 11.2 Hematocrit 32.8 Mean Corpuscular Volume 86.8 Mean Corpuscular Hemoglobin 29.6 Mean Corpuscular Hemoglobin Concent 34.1 Red Cell Distribution Width 15.9 Platelet Count 131 Mean Platelet Volume 10.2 Neutrophils (%) (Auto) 82.0 Lymphocytes (%) (Auto) 10.4 Monocytes (%) (Auto) 5.1 Eosinophils (%) (Auto) 1.6 Basophils (%) (Auto) 0.9 Neutrophils # (Auto) 6.4 Lymphocytes # (Auto) 0.8 Monocytes # (Auto) 0.4 Eosinophils # (Auto) 0.1 Basophils # (Auto) 0.1 CBC Comment DIFF FINAL Differential Comment Blood Urea Nitrogen 35 Creatinine 3.58 Random Glucose 116 Total Protein 6.4 Albumin 3.1 Calcium Level 8.4 Phosphorus Level 4.9 Magnesium Level 1.8 Alkaline Phosphatase 163 Aspartate Amino Transf (AST/SGOT) 108 Alanine Aminotransferase (ALT/SGPT) 255 Total Bilirubin 0.7 Sodium Level 140 Potassium Level 4.7 Chloride Level 107 Carbon Dioxide Level 18.8 Anion Gap 14 Estimat Glomerular Filtration Rate 15 Total Creatine Kinase 62 Troponin I 0.03 Lactic Acid Level 0.7 Prothrombin Time 12.0 Prothromb Time International Ratio 1.2 Activated Partial Thromboplast Time 26.6 Date/Time Source Procedure Growth Status 10/18/17 12:45 Blood Peripheral Aerobic Blood Culture Pending Received 10/18/17 12:45 Blood Peripheral Anaerobic Blood Culture Pending Received 10/18/17 13:30 Nasal Aspirate Influenza Types A,B Antigen (HERACLIO) - Final NEGATIVE FOR FLU A AND B ANTIGEN.... Complete Result Diagram: 10/18/17 1241 10/18/17 1241 Imaging Last Impressions Chest X-Ray 10/18/17 1201 Signed Impressions: Service Date/Time: Wednesday, October 18, 2017 13:09 - CONCLUSION: 1. No acute abnormality or significant interval change. MD Percy Hoagn VTE Risk Assessment Caprini VTE Risk Assessment: No/Low Risk (score <= 1) Caprini Risk Assessment Model Point Value = 1 Point Value = 2 Point Value = 3 Point Value = 5 Age 41-60 Minor surgery BMI > 25 kg/m2 Swollen legs Varicose veins or History of unexplained or recurrent spontaneous Oral contraceptives or hormone replacement Sepsis (< 1 month) Serious lung disease, including pneumonia (< 1 month) Abnormal pulmonary function Acute myocardial infarction Congestive heart failure (< 1 month) History of inflammatory bowel disease Medical patient at bed rest Age 61-74 Arthroscopic surgery Major open surgery (> 45 min) Laparoscopic surgery (> 45 min) Malignancy Confined to bed (> 72 hours) Immobilizing plaster cast Central venous access Age >= 75 History of VTE Family history of VTE Factor V Leiden Prothrombin [id number] Lupus anticoagulant Anticardiolipin antibodies Elevated serum homocysteine Heparin-induced thrombocytopenia Other congenital or acquired thrombophilia Stroke (< 1 month) Elective arthroplasty Hip, pelvis, or leg fracture Acute spinal cord injury (< 1 month) Prophylaxis Regimen Total Risk Factor Score Risk Level Prophylaxis Regimen 0-1 Low Early ambulation 2 Moderate Order ONE of the following: *Sequential Compression Device (SCD) *Heparin 5000 units SQ BID 3-4 Higher Order ONE of the following medications: *Heparin 5000 units SQ TID *Enoxaparin/Lovenox 40 mg SQ daily (WT < 150 kg, CrCl > 30 mL/min) *Enoxaparin/Lovenox 30 mg SQ daily (WT < 150 kg, CrCl > 10-29 mL/min) *Enoxaparin/Lovenox 30 mg SQ BID (WT < 150 kg, CrCl > 30 mL/min) AND/OR *Sequential Compression Device (SCD) 5 or more Highest Order ONE of the following medications: *Heparin 5000 units SQ TID (Preferred with Epidurals) *Enoxaparin/Lovenox 40 mg SQ daily (WT < 150 kg, CrCl > 30 mL/min) *Enoxaparin/Lovenox 30 mg SQ daily (WT < 150 kg, CrCl > 10-29 mL/min) *Enoxaparin/Lovenox 30 mg SQ BID (WT < 150 kg, CrCl > 30 mL/min) AND *Sequential Compression Device (SCD) Assessment and Plan Assessment and Plan nausea/vomiting/abdomen/ Elevated LFTs: Patient has been having symptoms for the past 3 days. We'll treat with Zofran and [place] as needed for pain control. Will order abdominal ultrasound. We'll get a GI consult for further evaluation and recommendations. Check lipase level. AST/ALT 108/255. Port infection per patient: Per patient, she states that she was started on and Saturday with dialysis. I will resume this at this time however I will get a infectious disease consult for further recommendations. [facility] I am unable to express any drainage from the port site at this time. Blood cultures are pending. Follow-up ESRD on hemodialysis: Consult nephrology for further assistance. Patient is known to CHF: w known AICD. pt known to Dr. Cardoso. Check BNP. Caution w IVFs at this time. fluid restriction 1000ml/day HTN: resume home meds DM: diet control DVT proph: SCD/ Ambulation Code Status full Discussed Condition With ER physician, RN, and patient Aimee Horvath MD Oct 18, 2017 16:56
[2017-10-18] MEDS ORDERED: ACETAMINOPHEN/HYDROcodone 325 MG/5 MG TAB PO PRN (17:00)
--- NOTE | 2017-10-18 17:57 | RADRPT ---
EXAM DATE/TIME: 10/18/2017 17:23 [place] COMPARISON: US KIDNEY/RENAL/BLADDER, December 01, 2016, 19:42. INDICATIONS : Abdominal pain. MEDICAL HISTORY : Congestive heart failure. Cardiomyopathy. Hypertension. SURGICAL HISTORY : Tonsillectomy. Pacemaker. Cholecystectomy. Tubal ligation. section. AVF left arm. ENCOUNTER: Subsequent ACUITY: 3 days PAIN SCORE: 7/10 LOCATION: Abdomen. MEASUREMENTS: LIVER: 18.5 cm length COMMON DUCT: 9 mm RIGHT KIDNEY: 9.0 x 3.8 x 4.3 cm LEFT KIDNEY: 9.9 x 3.4 x 4.1 cm SPLEEN: 12.5 cm length AORTA: 1.7cm maximal FINDINGS: LIVER: Minimally diffusely increased echogenicity without evidence for volume loss or intrahepatic ductal di latation. Hepatopedal portal vein flow. COMMON DUCT: No intraluminal mass or stone visualized. GALLBLADDER: Contains no stones, demonstrates no wall thickening or pericholecystic fluid. PANCREAS: The visualized portions are within normal limits. RIGHT KIDNEY: Small in size with increased cortical echogenicity. No hydronephrosis. LEFT KIDNEY: Small in size with increased cortical echogenicity. No hydronephrosis. SPLEEN: No focal lesion. AORTA: Non aneurysmal. IVC: Within normal limits. CONCLUSION: 1. Redemonstration of atrophic echogenic kidneys consistent with medical renal disease. 2. Minimally increased hepatic echogenicity consistent with hepatic steatosis versus medical liver di sease. Vinay Waters MD on October 18, 2017 at 17:52 Board Certified Radiologist. This report was verified electronically.
[2017-10-18] MEDS: ACETAMINOPHEN/HYDROcodone 325 MG/7.5 MG TAB PO PRN (18:02)
[2017-10-18 18:10] LABS: LIPASE 313 U/L (73-393)
[2017-10-18] MEDS: SODIUM CHLORIDE 0.9% FLUSH 10 ML FLUSH IV FLUSH SCH (20:43)
[2017-10-18] MEDS: CARVEDILOL 12.5 MG TAB PO SCH (20:46)
[2017-10-18] MEDS: DOCUSATE SODIUM 50 MG/SENNA 8.6 MG TAB PO SCH (20:46)
[2017-10-18] MEDS: SACUBITRIL/VALSARTAN 49 MG-51 MG TAB PO SCH (20:46)
[2017-10-18] MEDS: BUMETANIDE 1 MG TAB PO SCH (20:46)
[2017-10-18] MEDS ORDERED: cefTAZidime INJ 1,000 MG in SODIUM CHLORIDE 0.9% INJ 100 ML IV SCH (21:00)
[2017-10-18] MEDS: ONDANSETRON HCL 4 MG/2 ML VIAL IVP PRN (22:52)
[2017-10-19] VITALS (9 sets, daily range): BP systolic 108–135; BP diastolic 62–78; PULSE 68–96; RESP 18–20; TEMP 97–98.8; O2SAT 91–97
[2017-10-19] MEDS: ACETAMINOPHEN/HYDROcodone 325 MG/7.5 MG TAB PO PRN (00:34)
[2017-10-19] MEDS: ONDANSETRON HCL 4 MG/2 ML VIAL IVP PRN ×2 (04:36→18:27)
[2017-10-19 07:59] LABS: AUTOMATED NEUTROPHIL # 3.4 TH/MM3 (1.8-7.7); BASOPHIL % 0.2 % (0.0-2.0); EOSINOPHIL % 0.1 % (0.0-4.0); HEMATOCRIT 30.1 % (35.0-46.0); HEMOGLOBIN 10.3 GM/DL (11.6-15.3); LYMPH % 15.4 % (9.0-44.0); LYMPHOCYTE # 0.7 TH/MM3 (1.0-4.8); MEAN CELL VOLUME 86.6 FL (80.0-100.0); MEAN CORPUSCULAR HEMOGLOBIN 29.7 PG (27.0-34.0); MEAN CORPUSCULAR HGB CONC 34.3 % (32.0-36.0); MEAN PLATELET VOLUME 10.2 FL (7.0-11.0); MONOCYTE # 0.4 TH/MM3 (0-0.9); NEUT % 76.3 % (16.0-70.0); PLATELET COUNT 112 TH/MM3 (150-450); RED BLOOD COUNT 3.47 MIL/MM3 (4.00-5.30); RED CELL DISTRIBUTION WIDTH 15.9 % (11.6-17.2); WHITE BLOOD COUNT 4.5 TH/MM3 (4.0-11.0)
[2017-10-19] MEDS ORDERED: SODIUM CHLOR 0.9% 1000 ML INJ 1,000 ML OTHER PRN ×2 (08:16)
[2017-10-19] MEDS ORDERED: SODIUM CHLOR 0.9% 1000 ML INJ 1,000 ML IV PRN (08:16)
[2017-10-19 08:17] LABS: ALBUMIN 2.9 GM/DL (3.4-5.0); ALKALINE PHOSPHATASE 141 U/L (45-117); ALT (GPT) 192 U/L (10-53); AST (GOT) 49 U/L (15-37); BICARBONATE 19.5 MEQ/L (21.0-32.0); BLOOD UREA NITROGEN 47 MG/DL (7-18); CALCIUM 8.6 MG/DL (8.5-10.1); CHLORIDE 107 MEQ/L (98-107); CREATININE 4.03 MG/DL (0.50-1.00); GLOMERULAR FILTRATION RATE 13 ML/MIN (>89); GLUCOSE,RANDOM 110 MG/DL (74-106); SODIUM (NA) 139 MEQ/L (136-145); TOTAL BILIRUBIN ADULT 0.6 MG/DL (0.2-1.0); TOTAL PROTEIN 6.1 GM/DL (6.4-8.2)
--- NOTE | 2017-10-19 08:25 | PD.CONS ---
HPI Service Nephrology Consult Requested By Reason for Consult ESRD Primary Care Physician No Primary Care Physician History of Present Illness This is a 27 year old with history of post cardiomyopathy, EF of about 15 %, s/p AICD placement, DM and ESRD. She usually dialyzes MWF. She missed dialysis yesterday. Admitted to the hospital with complaints of nausea, vomiting , rib pain, epigastric pain. Apparently has been having runny nose for about 3 days. Dialysis will be performed today. Review of Systems Constitutional: COMPLAINS OF: Fatigue, DENIES: Fever, Chills Respiratory: COMPLAINS OF: Shortness of breath, DENIES: Cough Cardiovascular: COMPLAINS OF: Chest pain Musculoskeletal: COMPLAINS OF: Joint pain, Muscle aches Past Family Social History Allergies: Coded Allergies: niacin (Verified Allergy, Intermediate, 10/18/17) PT STATES SHE FEELS SHAKY AND SWEATY ketorolac (Verified Adverse Reaction, Mild, SHAKING, 10/18/17) Past Medical History cardiomyopathy with ejection fraction of 15% status post AICD, ESRD on hemodialysis on MWF, anxiety, diabetes diet controlled, hypertension and neuropathy Past Surgical History Tubal ligation, cholecystectomy, 1, port placement, AICD, tonsillectomy and adenectomy Reported Medications Reported Meds & Active Scripts Active Entresto (Sacubitril-Valsartan) 49-51 Mg Tab 1 Tab PO BID Coreg (Carvedilol) 12.5 Mg Tab 25 Mg PO Q12HR Reported Bumetanide 2 Mg Tab 4 Mg PO BID Active Ordered Medications Current Medications Medications (Trade) Dose Ordered Sig/Arnold Route Start Time Stop Time Status Last Admin (NS Flush) 2 ml UNSCH PRN IVF 10/18/17 13:30 (NS Flush) 2 ml UNSCH PRN IV FLUSH 10/18/17 15:00 (NS Flush) 2 ml BID IV FLUSH 10/18/17 21:00 10/18/17 20:43 (Zofran Inj) 4 mg Q6H PRN IVP 10/18/17 15:00 10/19/17 04:36 (Narcan Inj) 0.4 mg UNSCH PRN IV PUSH 10/18/17 15:00 ([place]-Colace) 1 tab BID PO 10/18/17 21:00 10/18/17 20:46 (Milk Of Magnesia Liq) 30 ml Q12HR PRN PO 10/18/17 15:00 (Senokot) 17.2 mg Q12HR PRN PO 10/18/17 15:00 (Dulcolax Supp) 10 mg DAILY PRN RECTAL 10/18/17 16:00 (Lactulose Liq) 30 ml DAILY PRN PO 10/18/17 16:00 ([place] 5-325 Mg) 1 tab Q4H PRN PO 10/18/17 17:00 10/19/17 04:37 ([place] 7.5-325 Mg) 1 tab Q6H PRN PO 10/18/17 17:00 10/19/17 00:34 (Bumetanide) 4 mg BID PO 10/18/17 21:00 10/18/17 20:46 (Coreg) 25 mg Q12HR PO 10/18/17 21:00 10/18/17 20:46 (Entresto 49-51 Mg) 1 tab BID PO 10/18/17 21:00 10/18/17 20:46 Ceftazidime 1000 mg/Sodium Chloride 100 ml @ 200 mls/hr Q24H IV 10/18/17 21:00 10/18/17 20:43 Family History Mother has RA and hypertension Father from pancreatic rupture Social History Quit smoking since 2012, used to smoke less than a half a pack a day for 5 years. Denies alcohol use. Admits to smoking weed once in a while. Physical Exam Vital Signs Vital Signs Date Time Temp Pulse Resp B/P (MAP) Pulse Ox O2 Delivery O2 Flow Rate FiO2 10/19/17 07:51 Room Air 10/19/17 04:22 97.0 90 18 113/62 (79) 97 10/19/17 00:00 86 10/18/17 23:21 98.3 98 17 117/71 (86) 95 10/18/17 20:35 Room Air 10/18/17 20:04 117 10/18/17 19:32 98.3 114 16 150/97 (114) 95 10/18/17 16:00 106 10/18/17 15:54 99 Nasal Cannula 2.00 10/18/17 15:52 99.2 100 18 157/85 (109) 96 10/18/17 15:34 98 17 134/69 (90) 100 Nasal Cannula 2.00 10/18/17 13:45 99 Nasal Cannula 2.00 10/18/17 13:37 Nasal Cannula 2.00 10/18/17 13:35 95 10/18/17 13:09 97 18 141/91 (108) 95 Room Air 10/18/17 11:54 98.8 106 20 146/94 (111) 93 Room Air Physical Exam GENERAL: lethargic, alert oriented. Seen during dialysis. SKIN: Warm and dry. HEAD: Normocephalic. EYES: No scleral icterus. No injection or drainage. NECK: Supple, trachea midline. No JVD or lymphadenopathy. CARDIOVASCULAR: Regular rate and rhythm without murmurs, gallops, or rubs. RESPIRATORY: Breath sounds equal bilaterally. No accessory muscle use. GASTROINTESTINAL: Abdomen soft, non-tender, nondistended. MUSCULOSKELETAL: No cyanosis, or edema. BACK: Nontender without obvious deformity. No CVA tenderness. Exit site of PermCath examined: skin appeared erythematous and inflamed. Laboratory Laboratory Tests Test 10/18/17 12:41 10/18/17 12:45 10/18/17 14:05 10/19/17 07:33 White Blood Count 7.8 4.5 Red Blood Count 3.77 3.47 Hemoglobin 11.2 10.3 Hematocrit 32.8 30.1 Mean Corpuscular Volume 86.8 86.6 Mean Corpuscular Hemoglobin 29.6 29.7 Mean Corpuscular Hemoglobin Concent 34.1 34.3 Red Cell Distribution Width 15.9 15.9 Platelet Count 131 112 Mean Platelet Volume 10.2 10.2 Neutrophils (%) (Auto) 82.0 76.3 Lymphocytes (%) (Auto) 10.4 15.4 Monocytes (%) (Auto) 5.1 8.0 Eosinophils (%) (Auto) 1.6 0.1 Basophils (%) (Auto) 0.9 0.2 Neutrophils # (Auto) 6.4 3.4 Lymphocytes # (Auto) 0.8 0.7 Monocytes # (Auto) 0.4 0.4 Eosinophils # (Auto) 0.1 0.0 Basophils # (Auto) 0.1 0.0 CBC Comment DIFF FINAL AUTO DIFF Differential Comment Blood Urea Nitrogen 35 47 Creatinine 3.58 4.03 Random Glucose 116 110 Total Protein 6.4 6.1 Albumin 3.1 2.9 Calcium Level 8.4 8.6 Phosphorus Level 4.9 Magnesium Level 1.8 Alkaline Phosphatase 163 141 Aspartate Amino Transf (AST/SGOT) 108 49 Alanine Aminotransferase (ALT/SGPT) 255 192 Total Bilirubin 0.7 0.6 Sodium Level 140 139 Potassium Level 4.7 4.8 Chloride Level 107 107 Carbon Dioxide Level 18.8 19.5 Anion Gap 14 13 Estimat Glomerular Filtration Rate 15 13 Total Creatine Kinase 62 Troponin I 0.03 Lipase 313 Lactic Acid Level 0.7 B-Type Natriuretic Peptide 4955 Prothrombin Time 12.0 Prothromb Time International Ratio 1.2 Activated Partial Thromboplast Time 26.6 Date/Time Source Procedure Growth Status 10/18/17 12:45 Blood Peripheral Aerobic Blood Culture Pending Received 10/18/17 12:45 Blood Peripheral Anaerobic Blood Culture Pending Received 10/18/17 13:30 Nasal Aspirate Influenza Types A,B Antigen (HERACLIO) - Final NEGATIVE FOR FLU A AND B ANTIGEN.... Complete Result Diagram: 10/19/17 0733 10/19/17 0733 Assessment and Plan Problem List: (1) End stage renal disease ICD Codes: N18.6 - End stage renal disease Plan: Dialysis today, and likely again tomorrow because of the holiday schedule. Monitor fluid and electrolyte status. Avoid Gadolinium. High protein diet. Salt restriction to 2 grams/day. Fluid restriction to 1500 ml/day I will give her a dose of Vancomycin: patient complains of fever (no fever documented in the hospital). In addition, 1/4 blood cultures [facility] at [facility] was positive for Gram positive cocci. Her PermCath has poor blood flows. High venous pressure. Will use Cathflow. AVF is not mature. (2) Anemia of renal disease ICD Codes: D63.1 - Anemia in chronic kidney disease Plan: Epogen with dialysis ordered. (3) Metabolic bone disease ICD Codes: E88.9 - Metabolic disorder, unspecified; M90.80 - Osteopathy in diseases classified elsewhere, unspecified site Plan: Monitor phosphorus, use binders if necessary (4) Non-ischemic cardiomyopathy ICD Codes: I42.8 - Other cardiomyopathies Status: Chronic Plan: Volume control with dialysis. Assessment and Plan Thanks for the consult. I am covering for John Delatorre MD Oct 19, 2017 08:25
[2017-10-19] MEDS ORDERED: ALBUMIN 25% INJ 100 ML IV PRN (08:30)
[2017-10-19] MEDS ORDERED: ACETAMINOPHEN 325 MG TAB PO PRN (08:30)
[2017-10-19] MEDS ORDERED: cloNIDine HCL 0.1 MG TAB PO PRN (08:30)
[2017-10-19] MEDS ORDERED: MANNITOL 12.5 GM/50 ML VIAL IV PRN (08:30)
[2017-10-19] MEDS ORDERED: HEPARIN SODIUM - IV 10,000 UNITS/10 ML VIAL IV FLUSH PRN (08:30)
[2017-10-19] MEDS ORDERED: GELATIN 12 MM/7 MM FOAM TOP PRN (08:30)
[2017-10-19] MEDS ORDERED: NITROGLYCERIN 0.4 MG SL 25 TABS/BTL SL PRN (08:30)
[2017-10-19] MEDS ORDERED: SODIUM CHLORIDE 0.9% FLUSH 10 ML FLUSH IV FLUSH PRN (08:30)
[2017-10-19] MEDS: BUMETANIDE 1 MG TAB PO SCH ×2 (09:00→22:44)
[2017-10-19] MEDS: DOCUSATE SODIUM 50 MG/SENNA 8.6 MG TAB PO SCH ×2 (09:00→22:45)
[2017-10-19 09:22] LABS: OVALOCYTES 1+ (NORMAL)
[2017-10-19] MEDS ORDERED: VANCOMYCIN INJ 1,000 MG in SODIUM CHLOR 0.9% 250 ML INJ 250 ML IV ONE (10:30)
[2017-10-19] MEDS ORDERED: ALTEPLASE RECOMBINANT 2 MG VIAL INTRACATH ONE (11:00)
--- NOTE | 2017-10-19 13:11 | PD.CONS ---
HPI History of Present Illness This is a 27 year old female with past medical history of cardiomyopathy with ejection fraction of 15% status post AICD, ESRD on hemodialysis on Saturday, Saturday, Saturday, anxiety, diabetes diet controlled, hypertension and neuropathy presented to the emergency room with complaints of upper abd pain,nausea, vomiting and diarrhea 3 days. She suspicious foods, travel or sick contacts. She states that on Saturday she went for hemodialysis and she was started on vanco and Fortaz because she there was drainage from her port. The abdominal pain mainly in the epigastric and left upper quadrant areas, this is severe comes and goes, sharp, no reliving or aggravating factors. The emesis consists of bile and digested foods, she hasn' t been able to tolerate PO intake. Denies hematemesis, melena or hematochezia. Labs revealed elevated LFTs but trending down. Denies alcohol intake or previous hx of liver dz. US showed hepatic steatosis. She tells me she had hx of pancreatitis in the past. She is s/p cholecystectomy (Sunitha Henao) PFSH Past Medical History cardiomyopathy with ejection fraction of 15% status post AICD, ESRD on hemodialysis on MWF, anxiety, diabetes diet controlled, hypertension and neuropathy, acute pancreatitis Past Surgical History Tubal ligation, cholecystectomy, 1, port placement, AICD, tonsillectomy and adenectomy (Sunitha Henao) Coded Allergies: niacin (Verified Allergy, Intermediate, 10/18/17) PT STATES SHE FEELS SHAKY AND SWEATY ketorolac (Verified Adverse Reaction, Mild, SHAKING, 10/18/17) Medications Current Medications Medications (Trade) Dose Ordered Sig/Arnold Route Start Time Stop Time Status Last Admin (NS Flush) 2 ml UNSCH PRN IV FLUSH 10/18/17 15:00 (NS Flush) 2 ml BID IV FLUSH 10/18/17 21:00 10/18/17 20:43 (Zofran Inj) 4 mg Q6H PRN IVP 10/18/17 15:00 10/19/17 04:36 (Narcan Inj) 0.4 mg UNSCH PRN IV PUSH 10/18/17 15:00 ([place]-Colace) 1 tab BID PO 10/18/17 21:00 10/18/17 20:46 (Milk Of Magnesia Liq) 30 ml Q12HR PRN PO 10/18/17 15:00 (Senokot) 17.2 mg Q12HR PRN PO 10/18/17 15:00 (Dulcolax Supp) 10 mg DAILY PRN RECTAL 10/18/17 16:00 (Lactulose Liq) 30 ml DAILY PRN PO 10/18/17 16:00 ([place] 5-325 Mg) 1 tab Q4H PRN PO 10/18/17 17:00 10/19/17 04:37 ([place] 7.5-325 Mg) 1 tab Q6H PRN PO 10/18/17 17:00 10/19/17 00:34 (Bumetanide) 4 mg BID PO 10/18/17 21:00 10/18/17 20:46 (Coreg) 25 mg Q12HR PO 10/18/17 21:00 10/18/17 20:46 (Entresto 49-51 Mg) 1 tab BID PO 10/18/17 21:00 10/18/17 20:46 Ceftazidime 1000 mg/Sodium Chloride 100 ml @ 200 mls/hr Q24H IV 10/18/17 21:00 10/18/17 20:43 Sodium Chloride 1,000 ml @ 0 mls/hr Q0M PRN OTHER 10/19/17 08:16 (Heparin Inj) 8,000 units UNSCH PRN IV FLUSH 10/19/17 08:30 Sodium Chloride 1,000 ml @ 200 mls/hr Q5H PRN IV 10/19/17 08:16 Sodium Chloride 1,000 ml @ 0 mls/hr Q0M PRN OTHER 10/19/17 08:16 (Mannitol Inj) 12.5 gm UNSCH PRN IV 10/19/17 08:30 Albumin Human 100 ml @ 60 mls/hr UNSCH PRN IV 10/19/17 08:30 (NS Flush) 5 ml UNSCH PRN IV FLUSH 10/19/17 08:30 (Heparin Inj) UNSCH PRN .XX 10/19/17 08:30 (Gentamicin (Dialysis) Inj) 20 mg UNSCH PRN OTHER 10/19/17 08:30 (Zofran Inj) 4 mg UNSCH PRN IV PUSH 10/19/17 08:30 (Tylenol) 650 mg UNSCH PRN PO 10/19/17 08:30 (Benadryl) 25 mg UNSCH PRN PO 10/19/17 08:30 (Nitrostat Sl) 0.4 mg UNSCH PRN SL 10/19/17 08:30 (Catapres) 0.1 mg UNSCH PRN PO 10/19/17 08:30 (Epogen Inj) 10,000 units UNSCH PRN IV PUSH 10/19/17 08:30 (Gelfoam 12 Mm/7 Mm Top) 1 foam UNSCH PRN TOP 10/19/17 08:30 Family History Mother has RA and hypertension Father from pancreatic rupture Social History Quit smoking since 2012, used to smoke less than a half a pack a day for 5 years. Denies alcohol use. Admits to smoking weed once in a while. (Sunitha Henao) Review of Systems Constitutional: COMPLAINS OF: Fatigue Endocrine: DENIES: Polyuria Eyes: DENIES: Double Vision Ears, nose, mouth, throat: DENIES: Hoarseness Respiratory: COMPLAINS OF: Shortness of breath Cardiovascular: DENIES: Lower Extremity Edema Gastrointestinal: COMPLAINS OF: Abdominal pain, Diarrhea, Nausea, Vomiting, DENIES: Black stools, Bloody stools, Constipation, Anorexia, Odynophagia, Swelling of Abdomen, Heartburn, Hematemesis Genitourinary: DENIES: Hematuria Musculoskeletal: DENIES: Neck pain Integumentary: DENIES: Jaundice Hematologic/lymphatic: DENIES: Bruising Immunologic/allergic: DENIES: Eczema Neurologic: DENIES: Abnormal gait Psychiatric: DENIES: Anxiety (Sunitha Henao) GI Exam Vitals I&O Vital Signs Date Time Temp Pulse Resp B/P (MAP) Pulse Ox O2 Delivery O2 Flow Rate FiO2 10/19/17 07:51 Room Air 10/19/17 04:22 97.0 90 18 113/62 (79) 97 10/19/17 00:00 86 10/18/17 23:21 98.3 98 17 117/71 (86) 95 10/18/17 20:35 Room Air 10/18/17 20:04 117 10/18/17 19:32 98.3 114 16 150/97 (114) 95 10/18/17 16:00 106 10/18/17 15:54 99 Nasal Cannula 2.00 10/18/17 15:52 99.2 100 18 157/85 (109) 96 10/18/17 15:34 98 17 134/69 (90) 100 Nasal Cannula 2.00 10/18/17 13:45 99 Nasal Cannula 2.00 10/18/17 13:37 Nasal Cannula 2.00 10/18/17 13:35 95 10/18/17 13:09 97 18 141/91 (108) 95 Room Air I/O 10/18/17 10/18/17 10/18/17 10/19/17 10/19/17 10/19/17 07:00 15:00 23:00 07:00 15:00 23:00 Intake Total 520 ml Balance 520 ml Intake Oral 520 ml # Voids 1 Imaging Last Impressions Chest X-Ray 10/18/17 1201 Signed Impressions: Service Date/Time: Wednesday, October 18, 2017 13:09 - CONCLUSION: 1. No acute abnormality or significant interval change. Vinay Waters MD Abdomen Ultrasound 10/18/17 0000 Signed Impressions: Service Date/Time: Wednesday, October 18, 2017 17:23 - CONCLUSION: 1. Redemonstration of atrophic echogenic kidneys consistent with medical renal disease. 2. Minimally increased hepatic echogenicity consistent with hepatic steatosis versus medical liver disease. Vinay Waters MD Laboratory Test 10/18/17 14:05 10/19/17 07:33 Prothrombin Time 12.0 SEC Prothromb Time International Ratio 1.2 RATIO Activated Partial Thromboplast Time 26.6 SEC White Blood Count 4.5 TH/MM3 Red Blood Count 3.47 MIL/MM3 Hemoglobin 10.3 GM/DL Hematocrit 30.1 % Mean Corpuscular Volume 86.6 FL Mean Corpuscular Hemoglobin 29.7 PG Mean Corpuscular Hemoglobin Concent 34.3 % Red Cell Distribution Width 15.9 % Platelet Count 112 TH/MM3 Mean Platelet Volume 10.2 FL Neutrophils (%) (Auto) 76.3 % Lymphocytes (%) (Auto) 15.4 % Monocytes (%) (Auto) 8.0 % Eosinophils (%) (Auto) 0.1 % Basophils (%) (Auto) 0.2 % Neutrophils # (Auto) 3.4 TH/MM3 Lymphocytes # (Auto) 0.7 TH/MM3 Monocytes # (Auto) 0.4 TH/MM3 Eosinophils # (Auto) 0.0 TH/MM3 Basophils # (Auto) 0.0 TH/MM3 CBC Comment AUTO DIFF Differential Comment AUTO DIFF CONFIRMED Platelet Estimate LOW Platelet Morphology Comment NORMAL Ovalocytes 1+ Blood Urea Nitrogen 47 MG/DL Creatinine 4.03 MG/DL Random Glucose 110 MG/DL Total Protein 6.1 GM/DL Albumin 2.9 GM/DL Calcium Level 8.6 MG/DL Alkaline Phosphatase 141 U/L Aspartate Amino Transf (AST/SGOT) 49 U/L Alanine Aminotransferase (ALT/SGPT) 192 U/L Total Bilirubin 0.6 MG/DL Sodium Level 139 MEQ/L Potassium Level 4.8 MEQ/L Chloride Level 107 MEQ/L Carbon Dioxide Level 19.5 MEQ/L Anion Gap 13 MEQ/L Estimat Glomerular Filtration Rate 13 ML/MIN Date/Time Source Procedure Growth Status 10/18/17 12:45 Blood Peripheral Aerobic Blood Culture - Preliminary NO GROWTH IN 1 DAY Resulted 10/18/17 12:45 Blood Peripheral Anaerobic Blood Culture - Preliminary NO GROWTH IN 1 DAY Resulted 10/18/17 13:30 Nasal Aspirate Influenza Types A,B Antigen (HERACLIO) - Final NEGATIVE FOR FLU A AND B ANTIGEN.... Complete Physical Examination HEENT: normocephalic; atraumatic; no jaundice. NECK: Neck is supple, no JVD, no lymphadenopathy. CHEST: Chest is clear to auscultation and percussion. CARDIAC: Regular rate and rhythm with no murmur gallop or rubs. ABDOMEN: Soft, nondistended, epigastric tenderness; no hepatosplenomegaly; bowel sounds are present in all four quadrants. EXTREMITIES: No clubbing, cyanosis, or edema. SKIN: Normal; no rash; no jaundice. PRIMARY OPERATOR: No focal deficits; alert and oriented times three. (Amawi,Khawla UNDERCOVER AGENT) Assessment and Plan Plan - Upper abd pain,nausea, vomiting and diarrhea 3 days. US showed hepatic steatosis. Lipase wnl. elevated LFTs but trending down. - elevated LFTs but trending down. Denies alcohol intake or previous hx of liver dz. US showed hepatic steatosis. She tells me she had hx of pancreatitis in the past. She is s/p cholecystectomy - past medical history of cardiomyopathy with ejection fraction of 15 % status post AICD, anxiety, diabetes diet controlled, hypertension and neuropathy - ESRD on hemodialysis on Saturday, Saturday, Saturday- Nephrology on the case Plan: - Renal diet - EGD/colonoscopy on Saturday - Stool studies - Consider GES pending results above - Hepatitis panel - HAMELT, AMA, ASMA, Ceruloplasmin, alpha- antitrypsin, celiac - Iron studies - Pt seen and examined by Dr. Poe and myself and this note is written on his behalf. (Sunitha Henao) Physician Comments Seen and examined, plan as above. Will schedule EGD/Colonoscopy tentatively Saturday. (Kartik Poe MD) Sunitha Henao Oct 19, 2017 13:11 Kartik Poe MD Oct 19, 2017 13:35
[2017-10-19] MEDS: HEPARIN SODIUM - IV 10,000 UNITS/10 ML VIAL PRN (13:16)
[2017-10-19] MEDS: EPOETIN ALFA 10,000 UNITS/ML VIAL IV PUSH PRN (13:16)
[2017-10-19] MEDS: GENTAMICIN SULFATE (DIALYSIS USE ONLY) 20 MG/2 ML VIAL OTHER PRN (13:17)
[2017-10-19] MEDS: CARVEDILOL 12.5 MG TAB PO SCH ×2 (13:34→22:45)
[2017-10-19] MEDS: SACUBITRIL/VALSARTAN 49 MG-51 MG TAB PO SCH ×2 (13:36→22:45)
[2017-10-19] MEDS: SODIUM CHLORIDE 0.9% FLUSH 10 ML FLUSH IV FLUSH SCH ×2 (13:37→22:45)
--- NOTE | 2017-10-19 13:53 | HHI.PR ---
Subjective Remarks Minimal improvement in GI symptoms which include pain and nausea. Plan for EGD and colonoscopy. EGD and colonoscopy will help rule out gastric ulcer or inflammatory bowel disease. Objective Vital Signs Date Time Temp Pulse Resp B/P (MAP) Pulse Ox O2 Delivery O2 Flow Rate FiO2 10/19/17 13:31 96 20 135/78 (97) 96 10/19/17 07:51 Room Air 10/19/17 04:22 97.0 90 18 113/62 (79) 97 10/19/17 00:00 86 10/18/17 23:21 98.3 98 17 117/71 (86) 95 10/18/17 20:35 Room Air 10/18/17 20:04 117 10/18/17 19:32 98.3 114 16 150/97 (114) 95 10/18/17 16:00 106 10/18/17 15:54 99 Nasal Cannula 2.00 10/18/17 15:52 99.2 100 18 157/85 (109) 96 10/18/17 15:34 98 17 134/69 (90) 100 Nasal Cannula 2.00 I/O 10/18/17 10/18/17 10/18/17 10/19/17 10/19/17 10/19/17 07:00 15:00 23:00 07:00 15:00 23:00 Intake Total 520 ml Output Total 3000 ml Balance -2480 ml Intake Oral 520 ml Output Hemodialysis 3000 ml # Voids 1 Result Diagram: 10/19/1733 10/19/17 0733 Objective Remarks GENERAL: NAD, A&Ox3 HEAD: Normocephalic. NECK: Supple, trachea midline. No lymphadenopathy. EYES: No scleral icterus. No injection or drainage. CARDIOVASCULAR: Regular rate and rhythm without murmurs, gallops, or rubs. RESPIRATORY: Breath sounds equal bilaterally. No accessory muscle use. GASTROINTESTINAL: Abdomen soft, non-tender, mild abdominal tenderness without guarding MUSCULOSKELETAL: No cyanosis, or edema. SKIN: Warm and dry. NEURO: No focal neurological deficitis. A/P Problem List: (1) Dehydration ICD Code: E86.0 - Dehydration (2) Intractable vomiting ICD Code: R11.10 - Vomiting, unspecified Status: Acute Assessment and Plan Assessment and Plan 27-year-old female admitted secondary to hyperemesis dehydration Hyperemesis Dehydration nausea/vomiting Abdominal pain Elevated LFTs Possible ulcer Possible inflammatory bowel disease EGD and colonoscopy planned Continue IV hydration By mouth hydromorphone for pain as needed Monitor LFTs Port infection, subacute Continue Fortaz with dialysis on Saturday ID following Follow blood cultures End-stage renal disease Nephrology following Continue dialysis per nephrology plan Chronic systolic congestive heart failure Cardiomyopathy Caution with IV hydration Follow clinically Hypertension Continue baseline treatments Follow blood pressures Diabetes mellitus type 2 Diet controlled Follow blood sugars Diabetic diet, if tolerated DVT prophylaxis SCDs Problem Qualifiers (1) Intractable vomiting: Qualified Codes: R11.2 - Nausea with vomiting, unspecified Yohan Frost MD Oct 19, 2017 13:53
[2017-10-19] MEDS: HYDROmorphone HCL 2 MG TAB PO PRN ×2 (15:13→22:46)
--- NOTE | 2017-10-19 15:25 | PD.CONS ---
History of Present Illness Service Infectious disease Consult Requested By Dr Horvath Reason for Consult Evaluate patient with possible permacath infection Primary Care Physician No Primary Care Physician Diagnoses: History of Present Illness Patient seen and examined. Records reviewed. Patient is a 27-year-old female, with end-stage renal disease, on hemodialysis Saturday and Saturday, presented to the hospital complaining of three-day history of nausea, vomiting, abdominal pain, and diarrhea. She also mentioned that she noted some drainage from her permacath and she was started on vancomycin and Fortaz in the dialysis unit. There was supposedly some cultures done. She had some subjective fevers, but none really documented. Denies any chills. She also mentioned that she's been coughing for the last 3 days and bringing up some yellowish phlegm. Since admission she has not had any fever. Her chest x-rays normal. GI is evaluating her and planning to do endoscopy. Blood culture done here are negative so far. Her WBC is normal. Infectious disease consultation has been requested to evaluate the patient. Review of Systems Constitutional: COMPLAINS OF: Fever, DENIES: Chills, Change in appetite Eyes: DENIES: Eye pain Ears, nose, mouth, throat: DENIES: Nasal discharge, Oral lesions, Throat pain, Ear Pain, Running Nose, Odynophagia Respiratory: COMPLAINS OF: Cough, Sputum production, Shortness of breath, DENIES: Hemoptysis Cardiovascular: DENIES: Chest pain, Palpitations, Dyspnea on Exertion Gastrointestinal: COMPLAINS OF: Abdominal pain, Diarrhea, Nausea, Vomiting, DENIES: Difficulty Swallowing Musculoskeletal: DENIES: Joint pain, Joint Swelling Integumentary: DENIES: Rash Neurologic: DENIES: Headache, Localized weakness Psychiatric: DENIES: Hallucinations Past Family Social History Allergies: Coded Allergies: niacin (Verified Allergy, Intermediate, 10/18/17) PT STATES SHE FEELS SHAKY AND SWEATY ketorolac (Verified Adverse Reaction, Mild, SHAKING, 10/18/17) Past Medical History cardiomyopathy with ejection fraction of 15% status post AICD ESRD on hemodialysis on MWF Anxiety Diabetes diet controlled Hypertension Neuropathy Past Surgical History Tubal ligation Cholecystectomy 1 AICD Tonsillectomy and adenectomy AVF LUE Permacath placement Reported Medications I attest that I obtained, updated or reviewed the home and current medications. Reported Meds & Active Scripts Active Entresto (Sacubitril-Valsartan) 49-51 Mg Tab 1 Tab PO BID Coreg (Carvedilol) 12.5 Mg Tab 25 Mg PO Q12HR Reported Bumetanide 2 Mg Tab 4 Mg PO BID Active Ordered Medications Current Medications Medications (Trade) Dose Ordered Sig/Arnold Route Start Time Stop Time Status Last Admin (NS Flush) 2 ml UNSCH PRN IV FLUSH 10/18/17 15:00 (NS Flush) 2 ml BID IV FLUSH 10/18/17 21:00 10/19/17 13:37 (Zofran Inj) 4 mg Q6H PRN IVP 10/18/17 15:00 10/19/17 04:36 (Narcan Inj) 0.4 mg UNSCH PRN IV PUSH 10/18/17 15:00 ([place]-Colace) 1 tab BID PO 10/18/17 21:00 10/18/17 20:46 (Milk Of Magnesia Liq) 30 ml Q12HR PRN PO 10/18/17 15:00 (Senokot) 17.2 mg Q12HR PRN PO 10/18/17 15:00 (Dulcolax Supp) 10 mg DAILY PRN RECTAL 10/18/17 16:00 (Lactulose Liq) 30 ml DAILY PRN PO 10/18/17 16:00 (Bumetanide) 4 mg BID PO 10/18/17 21:00 10/18/17 20:46 (Coreg) 25 mg Q12HR PO 10/18/17 21:00 10/19/17 13:34 (Entresto 49-51 Mg) 1 tab BID PO 10/18/17 21:00 10/19/17 13:36 Ceftazidime 1000 mg/Sodium Chloride 100 ml @ 200 mls/hr Q24H IV 10/18/17 21:00 10/18/17 20:43 Sodium Chloride 1,000 ml @ 0 mls/hr Q0M PRN OTHER 10/19/17 08:16 (Heparin Inj) 8,000 units UNSCH PRN IV FLUSH 10/19/17 08:30 Sodium Chloride 1,000 ml @ 200 mls/hr Q5H PRN IV 10/19/17 08:16 Sodium Chloride 1,000 ml @ 0 mls/hr Q0M PRN OTHER 10/19/17 08:16 (Mannitol Inj) 12.5 gm UNSCH PRN IV 10/19/17 08:30 Albumin Human 100 ml @ 60 mls/hr UNSCH PRN IV 10/19/17 08:30 (NS Flush) 5 ml UNSCH PRN IV FLUSH 10/19/17 08:30 (Heparin Inj) UNSCH PRN .XX 10/19/17 08:30 10/19/17 13:16 (Gentamicin (Dialysis) Inj) 20 mg UNSCH PRN OTHER 10/19/17 08:30 10/19/17 13:17 (Zofran Inj) 4 mg UNSCH PRN IV PUSH 10/19/17 08:30 (Tylenol) 650 mg UNSCH PRN PO 10/19/17 08:30 (Benadryl) 25 mg UNSCH PRN PO 10/19/17 08:30 (Nitrostat Sl) 0.4 mg UNSCH PRN SL 10/19/17 08:30 (Catapres) 0.1 mg UNSCH PRN PO 10/19/17 08:30 (Epogen Inj) 10,000 units UNSCH PRN IV PUSH 10/19/17 08:30 10/19/17 13:16 (Gelfoam 12 Mm/7 Mm Top) 1 foam UNSCH PRN TOP 10/19/17 08:30 (Dilaudid) 2 mg Q4H PRN PO 10/19/17 14:00 Family History Mother has RA and hypertension Father from pancreatic rupture Social History Lives with her parents Quit smoking since 2012, used to smoke less than a half a pack a day for 5 years. Denies alcohol use. Admits to smoking weed once in a while. Denies other illicit drugs Physical Exam Vital Signs Vital Signs Date Time Temp Pulse Resp B/P (MAP) Pulse Ox O2 Delivery O2 Flow Rate FiO2 10/19/17 13:31 96 20 135/78 (97) 96 10/19/17 07:51 Room Air 10/19/17 04:22 97.0 90 18 113/62 (79) 97 10/19/17 00:00 86 10/18/17 23:21 98.3 98 17 117/71 (86) 95 10/18/17 20:35 Room Air 10/18/17 20:04 117 10/18/17 19:32 98.3 114 16 150/97 (114) 95 10/18/17 16:00 106 10/18/17 15:54 99 Nasal Cannula 2.00 10/18/17 15:52 99.2 100 18 157/85 (109) 96 10/18/17 15:34 98 17 134/69 (90) 100 Nasal Cannula 2.00 Physical Exam GENERAL: Patient is a well-nourished, well-developed female, awake and alert , not in respiratory distress. SKIN: Warm and dry. No generalized rash, no ecchymoses and no evidence of embolic lesions. HEAD: Atraumatic. Normocephalic. No temporal wasting, or tenderness. EYES: [place] conjunctiva. No petechia or hemorrhage. Pupils equal, round and reactive to light. Extraocular movements full and intact. No scleral icterus. No injection or drainage. EARS, NOSE AND THROAT: Nose without bleeding or purulent nasal discharge. No sinus tenderness. Mucous membranes pink and moist. No oral lesions noted. No exudate. No oral thrush. NECK: Trachea midline. Supple and not tender, no meningeal signs. Permacath is tunnelled to her RIJ and the cath site has no redness or induration, no drainage seen, not tender CARDIOVASCULAR: Regular rate and rhythm. No murmurs, rubs or gallops heard RESPIRATORY: Clear to auscultation. Breath sounds equal bilaterally. No rales , wheezing or rhonchi ABDOMEN: Soft, non-tender, nondistended. Bowel sounds present and normoactive. No guarding. No rebound. No organomegaly. EXTREMITIES: No clubbing, cyanosis, or edema.No joint effusion, has good ROM. No calf tenderness. Well perfused and warm. NEUROLOGICAL: Awake and alert. Cranial nerves grossly intact. Motor grossly within normal limits. PSYCHIATRIC: Normal affect, calm and cooperative. LINE: No evidence of infection Laboratory Laboratory Tests Test 10/19/17 07:33 White Blood Count 4.5 Red Blood Count 3.47 Hemoglobin 10.3 Hematocrit 30.1 Mean Corpuscular Volume 86.6 Mean Corpuscular Hemoglobin 29.7 Mean Corpuscular Hemoglobin Concent 34.3 Red Cell Distribution Width 15.9 Platelet Count 112 Mean Platelet Volume 10.2 Neutrophils (%) (Auto) 76.3 Lymphocytes (%) (Auto) 15.4 Monocytes (%) (Auto) 8.0 Eosinophils (%) (Auto) 0.1 Basophils (%) (Auto) 0.2 Neutrophils # (Auto) 3.4 Lymphocytes # (Auto) 0.7 Monocytes # (Auto) 0.4 Eosinophils # (Auto) 0.0 Basophils # (Auto) 0.0 CBC Comment AUTO DIFF Differential Comment AUTO DIFF CONFIRMED Platelet Estimate LOW Platelet Morphology Comment NORMAL Ovalocytes 1+ Blood Urea Nitrogen 47 Creatinine 4.03 Random Glucose 110 Total Protein 6.1 Albumin 2.9 Calcium Level 8.6 Alkaline Phosphatase 141 Aspartate Amino Transf (AST/SGOT) 49 Alanine Aminotransferase (ALT/SGPT) 192 Total Bilirubin 0.6 Sodium Level 139 Potassium Level 4.8 Chloride Level 107 Carbon Dioxide Level 19.5 Anion Gap 13 Estimat Glomerular Filtration Rate 13 Date/Time Source Procedure Growth Status 10/18/17 12:45 Blood Peripheral Aerobic Blood Culture - Preliminary NO GROWTH IN 1 DAY Resulted 10/18/17 12:45 Blood Peripheral Anaerobic Blood Culture - Preliminary NO GROWTH IN 1 DAY Resulted 10/18/17 13:30 Nasal Aspirate Influenza Types A,B Antigen (HERACLIO) - Final NEGATIVE FOR FLU A AND B ANTIGEN.... Complete Result Diagram: 10/19/17 0733 10/19/17 0733 Imaging Chest X-Ray 10/18/17 1201 Signed Impressions: Service Date/Time: Wednesday, October 18, 2017 13:09 - CONCLUSION: 1. No acute abnormality or significant interval change. Vinay Waters MD Abdomen Ultrasound 10/18/17 0000 Signed Impressions: Service Date/Time: Wednesday, October 18, 2017 17:23 - CONCLUSION: 1. Redemonstration of atrophic echogenic kidneys consistent with medical renal disease. 2. Minimally increased hepatic echogenicity consistent with hepatic steatosis versus medical liver disease. Vinay Waters MD Assessment and Plan Assessment and Plan IMPRESSION N/V/D, etiology? - ?gastroenteritis - ?gastroparesis ?Permacath infection, currently site looks unremarkable, no redness or tenderness at tunnel ESRD on HD cardiomyopathy Cough, prob bronchitis, CXR clear RECOMMENDATION MOnitor permacath site Get C/S if any done in HD center Would favor holding off all Abx since clinically site does not look infected Follow C/S and adjust Rx plan if any C/S come back (+) Monitor progress GI work-up in progress I will follow along with you Thank you for this consultation Discussed Condition With Explained plan to the patient Belén Grossman MD Oct 19, 2017 15:25
[2017-10-19 16:30] LABS: % SATURATION IRON PROFILE 21.5 % (20-50); IRON (FE) 76 MCG/DL (50-170); TOTAL IRON BINDING CAPACITY 353 MCG/DL (250-450)
[2017-10-19 16:33] LABS: FERRITIN 344 NG/ML (8-252)
[2017-10-20] VITALS (7 sets, daily range): BP systolic 103–114; BP diastolic 51–58; PULSE 67–110; RESP 18; TEMP 97.3–98; O2SAT 93–94
[2017-10-20] MEDS: HYDROmorphone HCL 2 MG TAB PO PRN ×3 (02:49→12:18)
[2017-10-20] MEDS: ONDANSETRON HCL 4 MG/2 ML VIAL IV PUSH PRN (02:49)
[2017-10-20 08:59] LABS: AUTOMATED NEUTROPHIL # 2.9 TH/MM3 (1.8-7.7); BASOPHIL # 0.1 TH/MM3 (0-0.2); BASOPHIL % 1.3 % (0.0-2.0); EOSINOPHIL # 0.2 TH/MM3 (0-0.4); EOSINOPHIL % 3.4 % (0.0-4.0); HEMATOCRIT 31.2 % (35.0-46.0); HEMOGLOBIN 10.4 GM/DL (11.6-15.3); LYMPH % 28.9 % (9.0-44.0); LYMPHOCYTE # 1.4 TH/MM3 (1.0-4.8); MEAN CELL VOLUME 86.6 FL (80.0-100.0); MEAN CORPUSCULAR HEMOGLOBIN 28.8 PG (27.0-34.0); MEAN CORPUSCULAR HGB CONC 33.3 % (32.0-36.0); MEAN PLATELET VOLUME 9.4 FL (7.0-11.0); MONO % 5.8 % (0.0-8.0); MONOCYTE # 0.3 TH/MM3 (0-0.9); NEUT % 60.6 % (16.0-70.0); PLATELET COUNT 113 TH/MM3 (150-450); RED BLOOD COUNT 3.61 MIL/MM3 (4.00-5.30); RED CELL DISTRIBUTION WIDTH 15.9 % (11.6-17.2); WHITE BLOOD COUNT 4.8 TH/MM3 (4.0-11.0)
[2017-10-20] MEDS: DOCUSATE SODIUM 50 MG/SENNA 8.6 MG TAB PO SCH ×2 (09:00→20:55)
[2017-10-20 09:19] LABS: ALBUMIN 2.7 GM/DL (3.4-5.0); AST (GOT) 79 U/L (15-37); BICARBONATE 29.2 MEQ/L (21.0-32.0); BLOOD UREA NITROGEN 34 MG/DL (7-18); CALCIUM 7.9 MG/DL (8.5-10.1); CHLORIDE 104 MEQ/L (98-107); CREATININE 3.35 MG/DL (0.50-1.00); GLOMERULAR FILTRATION RATE 16 ML/MIN (>89); GLUCOSE,RANDOM 96 MG/DL (74-106); SODIUM (NA) 142 MEQ/L (136-145)
[2017-10-20 09:20] LABS: ALT (GPT) 190 U/L (10-53)
[2017-10-20 09:22] LABS: ALKALINE PHOSPHATASE 130 U/L (45-117); TOTAL BILIRUBIN ADULT 0.5 MG/DL (0.2-1.0); TOTAL PROTEIN 5.7 GM/DL (6.4-8.2)
--- NOTE | 2017-10-20 10:37 | HHI.NPPN ---
Subjective Interval History patient was seen today at dialysis. On 2K, UF goal is about 2300. BFR is 350 ml/ min, better than yesterday, after Cathflow. She is afebrile, WBC is normal. Review of Systems General Constitutional: Fatigue Objective Data Data Vital Signs Date Time Temp Pulse Resp B/P (MAP) Pulse Ox O2 Delivery O2 Flow Rate FiO2 10/20/17 03:59 79 10/20/17 03:20 Room Air 10/19/17 23:05 97.9 82 18 116/65 (82) 91 10/19/17 20:24 98.8 82 18 108/62 (77) 91 10/19/17 20:00 97 10/19/17 16:04 97.9 68 20 128/62 (84) 96 10/19/17 15:50 87 10/19/17 13:31 96 20 135/78 (97) 96 -: 10/20/17 0830 10/20/17 0830 Physical Exam General Appearance: Well Developed, No Acute Distress Neck Neck Exam: Neck Supple Pulmonary Resp Exam: Clear Bilaterally, Breath Sounds Equal Cardiology CV Exam: Regular, Normal Sinus Rhythm Gastrointestinal/Abdomen GI Exam: Soft, Non-Tender Integumentary Skin Exam: Intact Extremeties Extremities Exam: No Edema Assessment/Plan Problem List: (1) End stage renal disease ICD Codes: N18.6 - End stage renal disease Plan: Dialysis today because of holiday schedule. Monitor fluid and electrolyte status. Avoid Gadolinium. High protein diet. Salt restriction to 2 grams/day. Fluid restriction to 1500 ml/day (2) Anemia of renal disease ICD Codes: D63.1 - Anemia in chronic kidney disease Plan: Epogen with dialysis ordered. (3) Metabolic bone disease ICD Codes: E88.9 - Metabolic disorder, unspecified; M90.80 - Osteopathy in diseases classified elsewhere, unspecified site Plan: Monitor phosphorus, use binders if necessary (4) Non-ischemic cardiomyopathy ICD Codes: I42.8 - Other cardiomyopathies Status: Chronic Plan: Volume control with dialysis. Plan patient can be discharged from renal standpoint. John Hicks MD Oct 20, 2017 10:37
[2017-10-20] MEDS: GENTAMICIN SULFATE (DIALYSIS USE ONLY) 20 MG/2 ML VIAL OTHER PRN (10:56)
[2017-10-20] MEDS: HEPARIN SODIUM - IV 10,000 UNITS/10 ML VIAL PRN (10:56)
[2017-10-20] MEDS: EPOETIN ALFA 10,000 UNITS/ML VIAL IV PUSH PRN (10:57)
[2017-10-20] MEDS: BUMETANIDE 1 MG TAB PO SCH ×2 (12:16→20:56)
[2017-10-20] MEDS: CARVEDILOL 12.5 MG TAB PO SCH ×2 (12:17→20:54)
[2017-10-20] MEDS: SACUBITRIL/VALSARTAN 49 MG-51 MG TAB PO SCH ×2 (12:17→20:54)
[2017-10-20] MEDS: SODIUM CHLORIDE 0.9% FLUSH 10 ML FLUSH IV FLUSH SCH ×2 (12:18→20:54)
--- NOTE | 2017-10-20 13:04 | EKG ---
Date Performed: 10/18/2017 Time Performed: 14:45:48 PTAGE: 27 years EKG: Sinus rhythm POSSIBLE LEFT ATRIAL ENLARGEMENT LEFT VENTRICULAR HYPERTROPHY AND ST-T CHANGE ABNORMAL ECG Compared to prior tracing no significant change PREVIOUS TRACING : 10/03/2017 03.46 DOCTOR: Naveen Elias Interpretating Date/Time 10/20/2017 13:02:40
[2017-10-20] MEDS ORDERED: HYDROmorphone HCL 4 MG TAB PO PRN (14:15)
[2017-10-20] MEDS ORDERED: ZOLPIDEM TARTRATE 5 MG TAB PO PRN (14:15)
--- NOTE | 2017-10-20 14:22 | HHI.PR ---
Subjective Remarks Anything down. Abdominal pain is her primary complaint today. She also had insomnia overnight. EGD and colonoscopy planned for 10/22/16. Objective Vital Signs Date Time Temp Pulse Resp B/P (MAP) Pulse Ox O2 Delivery O2 Flow Rate FiO2 10/20/17 13:15 83 10/20/17 11:54 97.7 84 18 114/57 (76) 94 10/20/17 08:15 Nasal Cannula 2.00 10/20/17 08:00 71 10/20/17 03:59 79 10/20/17 03:20 Room Air 10/19/17 23:05 97.9 82 18 116/65 (82) 91 10/19/17 20:24 98.8 82 18 108/62 (77) 91 10/19/17 20:00 97 10/19/17 16:04 97.9 68 20 128/62 (84) 96 10/19/17 15:50 87 I/O 10/19/17 10/19/17 10/19/17 10/20/17 10/20/17 10/20/17 07:00 15:00 23:00 07:00 15:00 23:00 Intake Total 520 ml Output Total 3000 ml 3500 ml Balance -2480 ml -3500 ml Intake Oral 520 ml Output Hemodialysis 3000 ml 3500 ml # Voids 1 Result Diagram: 10/20/1782910/20/17 0830 Objective Remarks GENERAL: NAD, A&Ox3 HEAD: Normocephalic. NECK: Supple, trachea midline. No lymphadenopathy. EYES: No scleral icterus. No injection or drainage. CARDIOVASCULAR: Regular rate and rhythm without murmurs, gallops, or rubs. RESPIRATORY: Breath sounds equal bilaterally. No accessory muscle use. GASTROINTESTINAL: Abdomen soft, non-tender, mild abdominal tenderness without guarding MUSCULOSKELETAL: No cyanosis, or edema. SKIN: Warm and dry. NEURO: No focal neurological deficitis. A/P Problem List: (1) Dehydration ICD Code: E86.0 - Dehydration (2) Intractable vomiting ICD Code: R11.10 - Vomiting, unspecified Status: Acute Assessment and Plan Assessment and Plan 27-year-old female admitted secondary to hyperemesis dehydration. Dilaudid pain treatments adjusted. Continue to monitor. Anxiety medicine provided, Xanax 0.25 mg by mouth every 6 hours as needed for anxiety. Suellen provided for sleep as needed for insomnia. Hyperemesis Dehydration nausea/vomiting Abdominal pain Elevated LFTs Possible ulcer Possible inflammatory bowel disease EGD and colonoscopy planned Continue IV hydration By mouth hydromorphone for pain as needed Monitor LFTs Port infection, subacute Continue Fortaz with dialysis on Saturday ID following Follow blood cultures End-stage renal disease Nephrology following Continue dialysis per nephrology plan Chronic systolic congestive heart failure Cardiomyopathy Caution with IV hydration Follow clinically Hypertension Continue baseline treatments Follow blood pressures Diabetes mellitus type 2 Diet controlled Follow blood sugars Diabetic diet, if tolerated DVT prophylaxis SCDs Problem Qualifiers (1) Intractable vomiting: Qualified Codes: R11.2 - Nausea with vomiting, unspecified Yohan Frost MD Oct 20, 2017 14:22
--- NOTE | 2017-10-20 15:17 | HHI.GIFU ---
Subjective Remarks She continues to have abdominal pain left and right upper quadrant Diarrhea 2 loose stools today, no obvious blood Afebrile (Jennie Dinh) Objective Vitals I&O Vital Signs Date Time Temp Pulse Resp B/P (MAP) Pulse Ox O2 Delivery O2 Flow Rate FiO2 10/20/17 13:15 83 10/20/17 11:54 97.7 84 18 114/57 (76) 94 10/20/17 08:15 Nasal Cannula 2.00 10/20/17 08:00 71 10/20/17 03:59 79 10/20/17 03:20 Room Air 10/19/17 23:05 97.9 82 18 116/65 (82) 91 10/19/17 20:24 98.8 82 18 108/62 (77) 91 10/19/17 20:00 97 10/19/17 16:04 97.9 68 20 128/62 (84) 96 10/19/17 15:50 87 I/O 10/19/17 10/19/17 10/19/17 10/20/17 10/20/17 10/20/17 07:00 15:00 23:00 07:00 15:00 23:00 Intake Total 520 ml Output Total 3000 ml 3500 ml Balance -2480 ml -3500 ml Intake Oral 520 ml Output Hemodialysis 3000 ml 3500 ml # Voids 1 Laboratory Laboratory Tests Test 10/19/17 15:21 10/20/17 08:30 Iron Level 76 Total Iron Binding Capacity 353 Percent Iron Saturation 21.5 Ferritin 344 White Blood Count 4.8 Red Blood Count 3.61 Hemoglobin 10.4 Hematocrit 31.2 Mean Corpuscular Volume 86.6 Mean Corpuscular Hemoglobin 28.8 Mean Corpuscular Hemoglobin Concent 33.3 Red Cell Distribution Width 15.9 Platelet Count 113 Mean Platelet Volume 9.4 Neutrophils (%) (Auto) 60.6 Lymphocytes (%) (Auto) 28.9 Monocytes (%) (Auto) 5.8 Eosinophils (%) (Auto) 3.4 Basophils (%) (Auto) 1.3 Neutrophils # (Auto) 2.9 Lymphocytes # (Auto) 1.4 Monocytes # (Auto) 0.3 Eosinophils # (Auto) 0.2 Basophils # (Auto) 0.1 CBC Comment DIFF FINAL Differential Comment Blood Urea Nitrogen 34 Creatinine 3.35 Random Glucose 96 Total Protein 5.7 Albumin 2.7 Calcium Level 7.9 Alkaline Phosphatase 130 Aspartate Amino Transf (AST/SGOT) 79 Alanine Aminotransferase (ALT/SGPT) 190 Total Bilirubin 0.5 Sodium Level 142 Potassium Level 3.5 Chloride Level 104 Carbon Dioxide Level 29.2 Anion Gap 9 Estimat Glomerular Filtration Rate 16 Date/Time Source Procedure Growth Status 10/18/17 12:45 Blood Peripheral Aerobic Blood Culture - Preliminary NO GROWTH IN 2 DAYS Resulted 10/18/17 12:45 Blood Peripheral Anaerobic Blood Culture - Preliminary NO GROWTH IN 2 DAYS Resulted 10/18/17 13:30 Nasal Aspirate Influenza Types A,B Antigen (HERACLIO) - Final NEGATIVE FOR FLU A AND B ANTIGEN.... Complete Imaging Last Impressions Chest X-Ray 10/18/17 1201 Signed Impressions: Service Date/Time: Wednesday, October 18, 2017 13:09 - CONCLUSION: 1. No acute abnormality or significant interval change. Vinay Waters MD Abdomen Ultrasound 10/18/17 0000 Signed Impressions: Service Date/Time: Wednesday, October 18, 2017 17:23 - CONCLUSION: 1. Redemonstration of atrophic echogenic kidneys consistent with medical renal disease. 2. Minimally increased hepatic echogenicity consistent with hepatic steatosis versus medical liver disease. Vinay Waters MD Physical Exam HEENT: Pupils round and reactive to light; normocephalic; atraumatic; no jaundice. Throat is clear. Obese NECK: Neck is supple, no JVD, no lymphadenopathy. CHEST: Chest is clear no rhonchi CARDIAC: Regular rate and rhythm ABDOMEN: Round, Soft, nondistended, left upper quadrant and right upper quadrant pain waxes and wanes; no hepatosplenomegaly; bowel sounds soft EXTREMITIES: No clubbing, cyanosis, or edema. SKIN: Normal; no rash; no jaundice. 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 Anxious (Jennie Dinh) Assessment and Plan Plan - Upper abd pain,nausea, vomiting and diarrhea 3 days. US showed hepatic steatosis. Lipase wnl. elevated LFTs but trending but still elevated - elevated LFTs , waxing and waning today 79/190 Denies alcohol intake or previous hx of liver dz. US showed hepatic steatosis. , Alkaline phosphatase level 130 hx of pancreatitis and cholecystectomy - past medical history of cardiomyopathy with ejection fraction of 15 % status post AICD, Comorbidities anxiety, diabetes diet controlled, hypertension and neuropathy - ESRD on hemodialysis on Saturday, Saturday, Saturday- Nephrology on the case Iron Level 253 Anemia hemoglobin stable at 10.4, probable secondary to her end-stage renal disease and other chronic disease Plan: - Renal diet today Clear liquid diet tomorrow morning. No red Jell-O - EGD/colonoscopy on Saturday, procedure explained to patient Nothing by mouth at midnight 10/22/17 Nurse to hold all blood thinners a.m. procedure EGD and colonoscopy GoLYTELY ordered for 10/21/17 at 1600 - Stool studies pending - Consider GES pending results above - Hepatitis panel pending - HAMLET, AMA, ASMA, Ceruloplasmin, alpha- antitrypsin, celiac pending Plan of care based on symptom needs - Pt seen and examined by Dr. Poe and myself , note is written on his behalf. (Jennie Dinh) Physician Comments Seen and examined, plan as above. (Kartik Poe MD) Jennie Dinh Oct 20, 2017 15:17 Kartik Poe MD Oct 20, 2017 18:02
[2017-10-20] MEDS ORDERED: CHLORHEXIDINE GLUCONATE 2 % 1 PACK (2 CLOTHS) TOPICAL PRN (17:30)
[2017-10-20] MEDS ORDERED: SODIUM CHLORID 0.9% 500 ML IV PRN (17:30)
[2017-10-20] MEDS ORDERED: POVIDONE IODINE 5% (ANTISEPSIS KIT) 4 APPLICATIONS EACH NARE PRN (17:30)
[2017-10-20] MEDS ORDERED: LACTATED RINGER'S 1000 ML IV PRN (17:30)
[2017-10-20] MEDS ORDERED: oxyCODONE/ACETAMINOPHEN 5 MG/325 MG TAB PO PRN (18:45)
[2017-10-20] MEDS ORDERED: oxyCODONE/ACETAMINOPHEN 10 MG/325 MG TAB PO PRN (18:45)
[2017-10-20] MEDS: HYDROmorphone HCL 4 MG TAB PO PRN (21:02)
[2017-10-21] VITALS (10 sets, daily range): BP systolic 99–116; BP diastolic 53–69; PULSE 82–97; RESP 16–19; TEMP 95.4–98.1; O2SAT 91–93
[2017-10-21] MEDS: HYDROmorphone HCL 4 MG TAB PO PRN ×5 (01:20→20:02)
[2017-10-21] MEDS: ALPRAZolam 0.25 MG TAB PO PRN ×3 (06:22→22:32)
[2017-10-21] MEDS: CARVEDILOL 12.5 MG TAB PO SCH ×2 (09:00→19:51)
[2017-10-21] MEDS: DOCUSATE SODIUM 50 MG/SENNA 8.6 MG TAB PO SCH ×2 (09:00→19:51)
[2017-10-21] MEDS: SACUBITRIL/VALSARTAN 49 MG-51 MG TAB PO SCH ×2 (09:00→19:52)
[2017-10-21] MEDS: SODIUM CHLORIDE 0.9% FLUSH 10 ML FLUSH IV FLUSH SCH ×2 (09:00→19:49)
[2017-10-21 09:11] LABS: BASOPHIL # 0.1 TH/MM3 (0-0.2); BASOPHIL % 1.3 % (0.0-2.0); EOSINOPHIL # 0.3 TH/MM3 (0-0.4); EOSINOPHIL % 3.9 % (0.0-4.0); HEMATOCRIT 38.2 % (35.0-46.0); HEMOGLOBIN 12.6 GM/DL (11.6-15.3); LYMPH % 27.8 % (9.0-44.0); LYMPHOCYTE # 1.9 TH/MM3 (1.0-4.8); MEAN CELL VOLUME 87.4 FL (80.0-100.0); MEAN CORPUSCULAR HEMOGLOBIN 28.9 PG (27.0-34.0); MEAN CORPUSCULAR HGB CONC 33.1 % (32.0-36.0); MEAN PLATELET VOLUME 10.2 FL (7.0-11.0); MONO % 7.2 % (0.0-8.0); MONOCYTE # 0.5 TH/MM3 (0-0.9); NEUT % 59.8 % (16.0-70.0); PLATELET COUNT 143 TH/MM3 (150-450); RED BLOOD COUNT 4.37 MIL/MM3 (4.00-5.30); WHITE BLOOD COUNT 6.7 TH/MM3 (4.0-11.0)
[2017-10-21] MEDS: BUMETANIDE 1 MG TAB PO SCH ×2 (09:19→20:01)
[2017-10-21 09:34] LABS: ALBUMIN 3.2 GM/DL (3.4-5.0); ALKALINE PHOSPHATASE 267 U/L (45-117); ALT (GPT) 237 U/L (10-53); AST (GOT) 101 U/L (15-37); BICARBONATE 26.7 MEQ/L (21.0-32.0); BLOOD UREA NITROGEN 32 MG/DL (7-18); CALCIUM 8.6 MG/DL (8.5-10.1); CHLORIDE 98 MEQ/L (98-107); CREATININE 4.75 MG/DL (0.50-1.00); GLOMERULAR FILTRATION RATE 11 ML/MIN (>89); GLUCOSE,RANDOM 127 MG/DL (74-106); SODIUM (NA) 135 MEQ/L (136-145); TOTAL BILIRUBIN ADULT 0.6 MG/DL (0.2-1.0); TOTAL PROTEIN 6.8 GM/DL (6.4-8.2)
--- NOTE | 2017-10-21 11:50 | HHI.GIFU ---
Subjective Remarks Pt cont to have abd pain, diarrhea, and nausea (JulianoSunitha) Objective Vitals I&O Vital Signs Date Time Temp Pulse Resp B/P (MAP) Pulse Ox O2 Delivery O2 Flow Rate FiO2 10/21/17 08:00 97.3 89 17 108/64 (79) 91 10/21/17 04:29 97.9 97 18 116/69 (85) 92 10/21/17 04:00 94 10/21/17 00:40 98.1 82 18 105/54 (71) 93 10/21/17 00:15 89 10/20/17 20:55 Room Air 10/20/17 20:00 110 10/20/17 20:00 97.3 88 18 103/51 (68) 93 10/20/17 17:23 18 10/20/17 16:30 84 10/20/17 16:10 98.0 67 18 113/58 (76) 94 10/20/17 13:15 83 10/20/17 11:54 97.7 84 18 114/57 (76) 94 I/O 10/20/17 10/20/17 10/20/17 10/21/17 10/21/17 10/21/17 07:00 15:00 23:00 07:00 15:00 23:00 Intake Total 850 ml Output Total 3500 ml Balance -3500 ml 850 ml Intake Oral 850 ml Hemodialysis 3500 ml # Voids 5 2 # Bowel Movements 2 Laboratory Laboratory Tests Test 10/21/17 07:46 White Blood Count 6.7 Red Blood Count 4.37 Hemoglobin 12.6 Hematocrit 38.2 Mean Corpuscular Volume 87.4 Mean Corpuscular Hemoglobin 28.9 Mean Corpuscular Hemoglobin Concent 33.1 Red Cell Distribution Width 16.0 Platelet Count 143 Mean Platelet Volume 10.2 Neutrophils (%) (Auto) 59.8 Lymphocytes (%) (Auto) 27.8 Monocytes (%) (Auto) 7.2 Eosinophils (%) (Auto) 3.9 Basophils (%) (Auto) 1.3 Neutrophils # (Auto) 4.0 Lymphocytes # (Auto) 1.9 Monocytes # (Auto) 0.5 Eosinophils # (Auto) 0.3 Basophils # (Auto) 0.1 CBC Comment DIFF FINAL Differential Comment Blood Urea Nitrogen 32 Creatinine 4.75 Random Glucose 127 Total Protein 6.8 Albumin 3.2 Calcium Level 8.6 Alkaline Phosphatase 267 Aspartate Amino Transf (AST/SGOT) 101 Alanine Aminotransferase (ALT/SGPT) 237 Total Bilirubin 0.6 Sodium Level 135 Potassium Level 3.7 Chloride Level 98 Carbon Dioxide Level 26.7 Anion Gap 10 Estimat Glomerular Filtration Rate 11 Date/Time Source Procedure Growth Status 10/18/17 12:45 Blood Peripheral Aerobic Blood Culture - Preliminary NO GROWTH IN 3 DAYS Resulted 10/18/17 12:45 Blood Peripheral Anaerobic Blood Culture - Preliminary NO GROWTH IN 3 DAYS Resulted 10/18/17 13:30 Nasal Aspirate Influenza Types A,B Antigen (HERACLIO) - Final NEGATIVE FOR FLU A AND B ANTIGEN.... Complete Imaging Last Impressions Chest X-Ray 10/18/17 1201 Signed Impressions: Service Date/Time: Wednesday, October 18, 2017 13:09 - CONCLUSION: 1. No acute abnormality or significant interval change. Vinay Waters MD Abdomen Ultrasound 10/18/17 0000 Signed Impressions: Service Date/Time: Wednesday, October 18, 2017 17:23 - CONCLUSION: 1. Redemonstration of atrophic echogenic kidneys consistent with medical renal disease. 2. Minimally increased hepatic echogenicity consistent with hepatic steatosis versus medical liver disease. Vinay Waters MD Physical Exam HEENT: normocephalic; atraumatic; no jaundice. NECK: Neck is supple, no JVD, no lymphadenopathy. CHEST: Chest is clear no rhonchi CARDIAC: Regular rate and rhythm ABDOMEN: Round, Soft, nondistended, upper abd pain ; no hepatosplenomegaly; bowel sounds present EXTREMITIES: No clubbing, cyanosis, or edema. SKIN: Normal; no rash; no jaundice. 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 (Amawi,[place] INTERNATIONAL STUDENT COUNSELOR) Assessment and Plan Plan - Upper abd pain,nausea, vomiting and diarrhea 3 days. US showed hepatic steatosis. Lipase wnl. elevated LFTs but trending but still elevated - elevated LFTs- Denies alcohol intake or previous hx of liver dz. US showed hepatic steatosis. hx of pancreatitis and cholecystectomy, liver work up pending - past medical history of cardiomyopathy with ejection fraction of 15 % status post AICD, Comorbidities anxiety, diabetes diet controlled, hypertension and neuropathy - Hx of hep-C- ( positive for AB)- tx naive, pcr pending - ESRD on hemodialysis on Saturday, Saturday, Saturday- Nephrology on the case - Anemia hemoglobin stable- probable secondary to her end-stage renal disease and other chronic disease, no bleeding reported Plan: - clears today - EGD/colonoscopy tomorrow - Nothing by mouth at midnight 10/22/17 Nurse to hold all blood thinners a.m. procedure EGD and colonoscopy - GoLYTELY today - Stool studies pending - Consider GES pending results above - Hep-C PCR pending - Hepatitis panel pending - HAMLET, AMA, ASMA, Ceruloplasmin, alpha- antitrypsin, celiac pending - Pt seen and examined by Dr. Poe and myself , note is written on his behalf. (Sunitha Henao) Physician Comments Agree with plan as above, will schedule EGD and Colonoscopy in AM. (Kartik Poe MD) Sunitha Henao Oct 21, 2017 11:50 Kartik Poe MD Oct 21, 2017 20:42
--- NOTE | 2017-10-21 12:00 | HHI.NPPN ---
Subjective Interval History Had dialysis yesterday. GI plans EGD and colonoscopy. Review of Systems General Constitutional: Fatigue Objective Data Data Vital Signs Date Time Temp Pulse Resp B/P (MAP) Pulse Ox O2 Delivery O2 Flow Rate FiO2 10/21/17 08:00 97.3 89 17 108/64 (79) 91 10/21/17 04:29 97.9 97 18 116/69 (85) 92 10/21/17 04:00 94 10/21/17 00:40 98.1 82 18 105/54 (71) 93 10/21/17 00:15 89 10/20/17 20:55 Room Air 10/20/17 20:00 110 10/20/17 20:00 97.3 88 18 103/51 (68) 93 10/20/17 17:23 18 10/20/17 16:30 84 10/20/17 16:10 98.0 67 18 113/58 (76) 94 10/20/17 13:15 83 -: 10/21/17 0746 10/21/17 0746 Physical Exam General Appearance: Well Developed, No Acute Distress Neck Neck Exam: Neck Supple Pulmonary Resp Exam: Clear Bilaterally, Breath Sounds Equal Cardiology CV Exam: Regular, Normal Sinus Rhythm Gastrointestinal/Abdomen GI Exam: Soft, Non-Tender Integumentary Skin Exam: Intact Extremeties Extremities Exam: No Edema Assessment/Plan Problem List: (1) End stage renal disease ICD Codes: N18.6 - End stage renal disease Plan: Dialysis will be continued MWF. Monitor fluid and electrolyte status. Avoid Gadolinium. High protein diet. Salt restriction to 2 grams/day. Fluid restriction to 1500 ml/day (2) Anemia of renal disease ICD Codes: D63.1 - Anemia in chronic kidney disease Plan: Epogen to be held due to Hemoglobin of more than 12. (3) Metabolic bone disease ICD Codes: E88.9 - Metabolic disorder, unspecified; M90.80 - Osteopathy in diseases classified elsewhere, unspecified site Plan: Monitor phosphorus, use binders if necessary (4) Non-ischemic cardiomyopathy ICD Codes: I42.8 - Other cardiomyopathies Status: Chronic Plan: Volume control with dialysis. Plan patient can be discharged from renal standpoint. John Hicks MD Oct 21, 2017 12:00
--- NOTE | 2017-10-21 12:08 | HHI.PR ---
Subjective Remarks Pt still having nausea but no vomiting today. Still has abdominal pain in epigastric region w radiation to the left upper quadrant. Objective Vitals Vital Signs Date Time Temp Pulse Resp B/P (MAP) Pulse Ox O2 Delivery O2 Flow Rate FiO2 10/21/17 08:00 97.3 89 17 108/64 (79) 91 10/21/17 04:29 97.9 97 18 116/69 (85) 92 10/21/17 04:00 94 10/21/17 00:40 98.1 82 18 105/54 (71) 93 10/21/17 00:15 89 10/20/17 20:55 Room Air 10/20/17 20:00 110 10/20/17 20:00 97.3 88 18 103/51 (68) 93 10/20/17 17:23 18 10/20/17 16:30 84 10/20/17 16:10 98.0 67 18 113/58 (76) 94 10/20/17 13:15 83 I/O 10/20/17 10/20/17 10/20/17 10/21/17 10/21/17 10/21/17 07:00 15:00 23:00 07:00 15:00 23:00 Intake Total 850 ml Output Total 3500 ml Balance -3500 ml 850 ml Intake Oral 850 ml Hemodialysis 3500 ml # Voids 5 2 # Bowel Movements 2 Result Diagram: 10/21/17 0746 10/21/17 0746 Imaging Last Impressions Chest X-Ray 10/18/17 1201 Signed Impressions: Service Date/Time: Wednesday, October 18, 2017 13:09 - CONCLUSION: 1. No acute abnormality or significant interval change. Vinay Waters MD Abdomen Ultrasound 10/18/17 0000 Signed Impressions: Service Date/Time: Wednesday, October 18, 2017 17:23 - CONCLUSION: 1. Redemonstration of atrophic echogenic kidneys consistent with medical renal disease. 2. Minimally increased hepatic echogenicity consistent with hepatic steatosis versus medical liver disease. Vinay Waters MD Objective Remarks GENERAL: sitting in room and later seen ambulating down the halls w no difficulty NECK: trachea midline. EYES: EOMI CARDIOVASCULAR: Regular rate and rhythm without murmurs RESPIRATORY: Breath sounds equal bilaterally. No accessory muscle use. GASTROINTESTINAL: Abdomen soft, non-tender, mild abdominal tenderness without guarding MUSCULOSKELETAL: No edema. SKIN: Warm and dry. A/P Assessment and Plan 27-year-old female admitted secondary to hyperemesis dehydration. Hyperemesis Dehydration /nausea/vomiting/ Abdominal pain /Elevated LFTs- lipase normal, u/s abdomen show hepatic steatosis vs liver disease. GI following. Pt scheduled for EGD/colonoscopy tomorrow. Continue IV hydration continue pain control. Monitor LFTs Port infection, subacute ID following, recommends holding abx for now. fortax stopped. Follow blood cultures which have been neg x 3 days End-stage renal disease Nephrology following Continue dialysis per nephrology plan cleared from their standpoint for d/c Chronic systolic congestive heart failure Cardiomyopathy Caution with IV hydration/continue fluid restriction once diet resumed post procedure Follow clinically Hypertension Continue baseline treatments Follow blood pressures Diabetes mellitus type 2 Diet controlled Follow blood sugars currently on clears and NPO after midnight for procedure. Discharge Planning EGD/Colonoscopy in AM Aimee Horvath MD Oct 21, 2017 12:08
[2017-10-21] MEDS ORDERED: oxyCODONE/ACETAMINOPHEN 7.5 MG/325 MG TAB PO PRN (12:15)
[2017-10-21] MEDS: ONDANSETRON HCL 4 MG/2 ML VIAL IVP PRN (13:40)
[2017-10-21] MEDS ORDERED: PEG (High)/E-LYTE SOLN 4000 ML BTL PO ONE (16:00)
[2017-10-21] MEDS: ONDANSETRON HCL 4 MG/2 ML VIAL IV PUSH PRN (19:48)
[2017-10-22] VITALS (8 sets, daily range): BP systolic 106–128; BP diastolic 59–73; PULSE 76–106; RESP 16–18; TEMP 96.7–98.7; O2SAT 90–96
[2017-10-22] MEDS: HYDROmorphone HCL 4 MG TAB PO PRN ×6 (00:04→20:33)
[2017-10-22] MEDS: ALPRAZolam 0.25 MG TAB PO PRN ×2 (00:05→20:33)
[2017-10-22] MEDS: HYDROmorphone HCL 2 MG TAB PO PRN ×2 (02:29→23:53)
[2017-10-22] MEDS: diphenhydrAMINE HCL 25 MG CAP PO PRN (02:30)
[2017-10-22 07:50] LABS: ALBUMIN 3.1 GM/DL (3.4-5.0); ALT (GPT) 199 U/L (10-53); AST (GOT) 88 U/L (15-37); BICARBONATE 26.2 MEQ/L (21.0-32.0); BLOOD UREA NITROGEN 40 MG/DL (7-18); CALCIUM 8.5 MG/DL (8.5-10.1); CHLORIDE 95 MEQ/L (98-107); CREATININE 5.63 MG/DL (0.50-1.00); GLOMERULAR FILTRATION RATE 9 ML/MIN (>89); GLUCOSE,RANDOM 93 MG/DL (74-106); SODIUM (NA) 134 MEQ/L (136-145)
[2017-10-22 07:52] LABS: ALKALINE PHOSPHATASE 279 U/L (45-117); TOTAL BILIRUBIN ADULT 0.8 MG/DL (0.2-1.0); TOTAL PROTEIN 6.4 GM/DL (6.4-8.2)
[2017-10-22] MEDS: SACUBITRIL/VALSARTAN 49 MG-51 MG TAB PO SCH ×2 (08:17→23:37)
[2017-10-22] MEDS: BUMETANIDE 1 MG TAB PO SCH ×2 (08:17→20:30)
[2017-10-22] MEDS: CARVEDILOL 12.5 MG TAB PO SCH ×3 (08:17→23:38)
[2017-10-22] MEDS: DOCUSATE SODIUM 50 MG/SENNA 8.6 MG TAB PO SCH ×2 (08:18→20:31)
[2017-10-22] MEDS: SODIUM CHLORIDE 0.9% FLUSH 10 ML FLUSH IV FLUSH SCH ×2 (08:45→20:29)
--- NOTE | 2017-10-22 12:50 | HHI.PR ---
Subjective Remarks Patient WAS TO GO FOR EGD and colonoscopy was canceled by gastroenterology today Seen in her room with RN lumite injector in attendance Questions answered Chronically takes her Dilaudid [id number] Wants a diet we'll defer to gastroenterology since they put the procedure on hold A.m. labs Objective Vitals Vital Signs Date Time Temp Pulse Resp B/P (MAP) Pulse Ox O2 Delivery O2 Flow Rate FiO2 10/22/17 12:00 97.4 77 17 106/70 (82) 96 10/22/17 09:38 92 10/22/17 08:00 96.9 76 16 107/62 (77) 90 10/22/17 08:00 Room Air 10/22/17 04:00 96.7 83 17 111/65 (80) 91 10/22/17 00:00 96.9 88 17 114/59 (77) 91 10/21/17 20:00 95.4 83 17 105/55 (72) 93 10/21/17 17:26 93 21 10/21/17 16:00 97.8 90 16 99/53 (68) 91 I/O 10/21/17 10/21/17 10/21/17 10/22/17 10/22/17 10/22/17 07:00 15:00 23:00 07:00 15:00 23:00 Intake Total 875 ml 360 ml Output Total 100 ml Balance 775 ml 360 ml Intake Oral 875 ml 360 ml Output Urine Total 100 ml # Voids 2 0 # Bowel Movements 0 Result Diagram: 10/21/17 0746 10/22/17 0627 Other Results Laboratory Tests Test 10/19/17 13:11 10/19/17 15:21 10/20/17 08:30 10/21/17 07:46 Iron Level 76 MCG/DL Total Iron Binding Capacity 353 MCG/DL Percent Iron Saturation 21.5 % Ferritin 344 NG/ML White Blood Count 4.8 TH/MM3 6.7 TH/MM3 Red Blood Count 3.61 MIL/MM3 4.37 MIL/MM3 Hemoglobin 10.4 GM/DL 12.6 GM/DL Hematocrit 31.2 % 38.2 % Mean Corpuscular Volume 86.6 FL 87.4 FL Mean Corpuscular Hemoglobin 28.8 PG 28.9 PG Mean Corpuscular Hemoglobin Concent 33.3 % 33.1 % Red Cell Distribution Width 15.9 % 16.0 % Platelet Count 113 TH/MM3 143 TH/MM3 Mean Platelet Volume 9.4 FL 10.2 FL Neutrophils (%) (Auto) 60.6 % 59.8 % Lymphocytes (%) (Auto) 28.9 % 27.8 % Monocytes (%) (Auto) 5.8 % 7.2 % Eosinophils (%) (Auto) 3.4 % 3.9 % Basophils (%) (Auto) 1.3 % 1.3 % Neutrophils # (Auto) 2.9 TH/MM3 4.0 TH/MM3 Lymphocytes # (Auto) 1.4 TH/MM3 1.9 TH/MM3 Monocytes # (Auto) 0.3 TH/MM3 0.5 TH/MM3 Eosinophils # (Auto) 0.2 TH/MM3 0.3 TH/MM3 Basophils # (Auto) 0.1 TH/MM3 0.1 TH/MM3 CBC Comment DIFF FINAL DIFF FINAL Differential Comment Blood Urea Nitrogen 34 MG/DL 32 MG/DL Creatinine 3.35 MG/DL 4.75 MG/DL Random Glucose 96 MG/DL 127 MG/DL Total Protein 5.7 GM/DL 6.8 GM/DL Albumin 2.7 GM/DL 3.2 GM/DL Calcium Level 7.9 MG/DL 8.6 MG/DL Alkaline Phosphatase 130 U/L 267 U/L Aspartate Amino Transf (AST/SGOT) 79 U/L 101 U/L Alanine Aminotransferase (ALT/SGPT) 190 U/L 237 U/L Total Bilirubin 0.5 MG/DL 0.6 MG/DL Sodium Level 142 MEQ/L 135 MEQ/L Potassium Level 3.5 MEQ/L 3.7 MEQ/L Chloride Level 104 MEQ/L 98 MEQ/L Carbon Dioxide Level 29.2 MEQ/L 26.7 MEQ/L Anion Gap 9 MEQ/L 10 MEQ/L Estimat Glomerular Filtration Rate 16 ML/MIN 11 ML/MIN Test 10/22/17 06:27 Blood Urea Nitrogen 40 MG/DL Creatinine 5.63 MG/DL Random Glucose 93 MG/DL Total Protein 6.4 GM/DL Albumin 3.1 GM/DL Calcium Level 8.5 MG/DL Alkaline Phosphatase 279 U/L Aspartate Amino Transf (AST/SGOT) 88 U/L Alanine Aminotransferase (ALT/SGPT) 199 U/L Total Bilirubin 0.8 MG/DL Sodium Level 134 MEQ/L Potassium Level 4.1 MEQ/L Chloride Level 95 MEQ/L Carbon Dioxide Level 26.2 MEQ/L Anion Gap 13 MEQ/L Estimat Glomerular Filtration Rate 9 ML/MIN Human Chorionic Gonadotropin, Quant LESS THAN 1 MIU/ML Imaging Last Impressions Chest X-Ray 10/18/17 1201 Signed Impressions: Service Date/Time: Wednesday, October 18, 2017 13:09 - CONCLUSION: 1. No acute abnormality or significant interval change. Vinay Waters MD Abdomen Ultrasound 10/18/17 0000 Signed Impressions: Service Date/Time: Wednesday, October 18, 2017 17:23 - CONCLUSION: 1. Redemonstration of atrophic echogenic kidneys consistent with medical renal disease. 2. Minimally increased hepatic echogenicity consistent with hepatic steatosis versus medical liver disease. Vinay Waters MD Objective Remarks GENERAL: Awake alert oriented talkative and cooperative-- does not appear to be in any distress at this time SKIN: Warm and dry. HEAD: Atraumatic. Normocephalic. EYES: Pupils equal and round. No scleral icterus. No injection or drainage. Extraocular muscles intact ENT: No nasal bleeding or discharge. Mucous membranes pink and moist. Tongue is midline NECK: Trachea midline. No JVD. Supple CARDIOVASCULAR: Regular rate and rhythm. S1 and S2 no S3 or S4 no heave or thrill or rub or gallop RESPIRATORY: No accessory muscle use. Clear to auscultation. Breath sounds equal bilaterally. GASTROINTESTINAL: Abdomen soft, non-tender, nondistended. Hepatic and splenic margins not palpable. Obese MUSCULOSKELETAL: Extremities without clubbing, cyanosis, or edema. No obvious deformities. NEUROLOGICAL: Awake and alert. No obvious cranial nerve deficits. Motor grossly within normal limits. Five out of 5 muscle strength in the arms and legs. Normal speech. PSYCHIATRIC: Appropriate mood and affect; insight and judgment normal. Procedures HD Medications and IVs Current Medications Sodium Chloride (NS Flush) 2 ml UNSCH PRN IVF FLUSH AFTER USING IV ACCESS; Start 10/18/17 at 13:30; Stop 10/19/17 at 08:33; Status DC Albuterol/ Ipratropium (Duoneb Neb) 1 ampule Q15M INH Last administered on t 14:18; Start 10/18/17 at 13:30; Stop 10/18/17 at 13:46; Status DC Morphine Sulfate (Morphine Inj) 2 mg ONCE ONCE IV PUSH ; Start 10/18/17 at 13: 30; Stop 10/18/17 at 13:30; Status DC Morphine Sulfate (Morphine Inj) 2 mg ONCE ONCE IV PUSH Last administered on 13:35; Start 10/18/17 at 13:30; Stop 10/18/17 at 13:31; Status DC Sodium Chloride (NS Flush) 2 ml UNSCH PRN IV FLUSH FLUSH AFTER USING IV ACCESS Last administered on 10/22/17 02:30; Start 10/18/17 at 15:00 Sodium Chloride (NS Flush) 2 ml BID IV FLUSH Last administered on 10/21/17 19: 49; Start 10/18/17 at 21:00 Ondansetron HCl (Zofran Inj) 4 mg Q6H PRN IVP NAUSEA OR VOMITING Last administered on 10/21/17 13:40; Start 10/18/17 at 15:00 Naloxone HCl (Narcan Inj) 0.4 mg UNSCH PRN IV PUSH SEE LABEL COMMENTS; Start 10/18/17 at 15:00 Senna/Docusate Sodium ([place]-Colace) 1 tab BID PO Last administered on 22:45; Start 10/18/17 at 21:00 Magnesium Hydroxide (Milk Of Magnesia Liq) 30 ml Q12HR PRN PO Mild constipation ; Start 10/18/17 at 15:00 Sennosides (Senokot) 17.2 mg Q12HR PRN PO Moderate constipation; Start at 15:00 Bisacodyl (Dulcolax Supp) 10 mg DAILY PRN RECTAL SEVERE CONSITIPATION; Start 10/18/17 at 16:00 Lactulose (Lactulose Liq) 30 ml DAILY PRN PO SEVERE CONSITIPATION; Start 10/18 at 16:00 Methylprednisolone Sodium Succinate (SoluMEDROL INJ) 125 mg ONCE ONCE IV PUSH Last administered on 10/18/17 15:15; Start 10/18/17 at 15:15; Stop 10/18/17 at 15:16; Status DC Acetaminophen/ Hydrocodone Bitart (Sizerock 5-325 Mg) 1 tab Q4H PRN PO PAIN SCALE 3 TO 5 Last administered on 10/19/17 04:37; Start 10/18/17 at 17:00; Stop 10/19/17 at 13:55; Status DC Acetaminophen/ Hydrocodone Bitart (Sizerock 7.5-325 Mg) 1 tab Q6H PRN PO PAIN SCALE 6 TO 10 Last administered on 10/19/17 00:34; Start 10/18/17 at 17:00; Stop 10/19/17 at 13:55; Status DC Bumetanide (Bumetanide) 4 mg BID PO Last administered on 10/22/17 08:17; Start 10/18/17 at 21:00 Carvedilol (Coreg) 25 mg Q12HR PO Last administered on 10/20/17 12:17; Start 10/18/17 at 21:00 Sacubitril/ Valsartan (Entresto 49-51 Mg) 1 tab BID PO Last administered on 10/22 08:17; Start 10/18/17 at 21:00 Ceftazidime 1000 mg/Sodium Chloride 100 ml @ 200 mls/hr Q24H IV Last administered on 10/18/17 20:43; Start 10/18/17 at 21:00; Stop 10/19/17 at 15 :28; Status DC Sodium Chloride 1,000 ml @ 0 mls/hr Q0M PRN OTHER For Prime & Rinse Back; Start 10/19/17 at 08:16 Heparin Sodium (Porcine) (Heparin Inj) 8,000 units UNSCH PRN IV FLUSH WITH DIALYSIS; Start 10/19/17 at 08:30 Sodium Chloride 1,000 ml @ 200 mls/hr Q5H PRN IV WITH DIALYSIS; Start at 08:16 Sodium Chloride 1,000 ml @ 0 mls/hr Q0M PRN OTHER WITH DIALYSIS; Start at 08:16 Mannitol (Mannitol Inj) 12.5 gm UNSCH PRN IV WITH DIALYSIS; Start 10/19/17 at 08:30 Albumin Human 100 ml @ 60 mls/hr UNSCH PRN IV WITH DIALYSIS; Start 10/19/17 at 08:30 Sodium Chloride (NS Flush) 5 ml UNSCH PRN IV FLUSH WITH DIALYSIS; Start at 08:30 Heparin Sodium (Porcine) (Heparin Inj) UNSCH PRN .XX WITH DIALYSIS Last administered on 10/20/17 10:56; Start 10/19/17 at 08:30 Gentamicin Sulfate (Gentamicin (Dialysis) Inj) 20 mg UNSCH PRN OTHER WITH DIALYSIS Last administered on 10/20/17 10:56; Start 10/19/17 at 08:30 Ondansetron HCl (Zofran Inj) 4 mg UNSCH PRN IV PUSH WITH DIALYSIS Last administered on 10/21/17 19:48; Start 10/19/17 at 08:30 Acetaminophen (Tylenol) 650 mg UNSCH PRN PO for headach, pain, temp > 101F; Start 10/19/17 at 08:30 Diphenhydramine HCl (Benadryl) 25 mg UNSCH PRN PO for hives/itching/ anaphylaxis Last administered on 10/22/17 02:30; Start 10/19/17 at 08:30 Nitroglycerin (Nitrostat Sl) 0.4 mg UNSCH PRN SL CHEST PAIN; Start 10/19/17 at 08:30 Clonidine (Catapres) 0.1 mg UNSCH PRN PO for BP > 180/100 X 2 readings; Start 10/19/17 at 08:30 Epoetin Enzo (Epogen Inj) 10,000 units UNSCH PRN IV PUSH WITH DIALYSIS Last administered on 10/20/17 10:57; Start 10/19/17 at 08:30; Stop 10/21/17 at 12: 01; Status DC Gelatin (Gelfoam 12 Mm/7 Mm Top) 1 foam UNSCH PRN TOP SEE LABEL COMMENTS; Start 10/19/17 at 08:30 Vancomycin HCl 1000 mg/Sodium Chloride 250 ml @ 250 mls/hr ONCE ONCE IV Last administered on 10/19/17 10:30; Start 10/19/17 at 10:30; Stop 10/19/17 at 11 :29; Status DC Alteplase, Recombinant (Cathflo Activase Inj) 6 mg ONCE ONCE INTRACATH Last administered on 10/19/17 11:00; Start 10/19/17 at 11:00; Stop 10/19/17 at 11 :01; Status DC Hydromorphone HCl (Dilaudid) 2 mg Q4H PRN PO Breakthrough Pain Last administered on 1/2/18at 02:29; Start 10/19/17 at 14:00 Hydromorphone HCl (Dilaudid) 4 mg Q4H PRN PO Pain 7 to 10 Last administered on 10/20/17t 16:23; Start 10/20/17 at 14:15; Stop 10/20/17 at 18:42; Status DC Alprazolam (Xanax) 0.25 mg Q6H PRN PO Anxiety Last administered on 10/22/17at 00: 05; Start 10/20/17 at 14:15 Zolpidem Tartrate (Ambien) 5 mg HS PRN PO Insomnia Last administered on 02:52; Start 10/20/17 at 14:15 Polyethylene Glycol/ Electrolytes (Colyte Liq) 4,000 ml ONCE ONCE PO Last administered on 10/21/17at 16:12; Start 10/21/17 at 16:00; Stop 10/21/17 at 16:01; Status DC Lactated Ringer's 1,000 ml @ 30 mls/hr Q24H PRN IV SEE LABEL COMMENTS; Start 10/20/17 at 17:30; Stop 10/23/17 at 17:29 Sodium Chloride 500 ml @ 30 mls/hr [id number] PRN IV SEE LABEL COMMENTS; Start at 17:30; Stop 10/23/17 at 17:29 Povidone Iodine (Betadine 5% Antisepsis Kit) 1 applic [employer] PRN EACH NARE SEE LABEL COMMENTS; Start 10/20/17 at 17:30; Stop 10/23/17 at 17:29 Chlorhexidine Gluconate (Chlorhexidine 2% Cloth) 3 pack [employer] PRN TOPICAL SEE LABEL COMMENTS; Start 10/20/17 at 17:30; Stop 10/23/17 at 17:29 Oxycodone/ Acetaminophen (Percocet 5-325 Mg) 1 tab Q4H PRN PO Pain 3 to 6; Start 10/20/17 at 18:45; Stop 10/21/17 at 12:08; Status DC Oxycodone/ Acetaminophen (Percocet 10-325 Mg) 1 tab Q4H PRN PO Pain 7 to 10; Start 10/20/17 at 18:45; Stop 10/20/17 at 20:42; Status DC Hydromorphone HCl (Dilaudid) 4 mg Q4H PRN PO PAIN 8-10 Last administered on 10/22at 12:13; Start 10/20/17 at 20:45 Oxycodone/ Acetaminophen (Percocet 7.5-325 Mg) 1 tab Q4H PRN PO PAIN SCALE 3 TO 6; Start 10/21/17 at 12:15 A/P Assessment and Plan Assessment and Plan 27-year-old female admitted secondary to hyperemesis dehydration. Hyperemesis STATES SOMETIMES USES WEED/THC FOR PAIN- NOT THIS WEEK Dehydration /nausea/vomiting/ Abdominal pain /Elevated LFTs- lipase normal, u/s abdomen show hepatic steatosis vs liver disease. GI following. Pt scheduled for EGD/colonoscopy tomorrow.? Continue IV hydration- IS A HD PATIENT continue pain control. Monitor LFTs Port infection, subacute ID following, recommends holding abx for now. fortaZ stopped. Follow blood cultures which have been neg x 3 days End-stage renal disease Nephrology following Continue dialysis per nephrology plan cleared from their standpoint for d/c Chronic systolic congestive heart failure Cardiomyopathy Caution with IV hydration/continue fluid restriction once diet resumed post procedure Follow clinically Hypertension Continue baseline treatments Follow blood pressures Diabetes mellitus type 2 Diet controlled Follow blood sugars currently on clears and NPO after midnight for procedure. OBESITY WEIGHT LOSS RECOMMENDED RECOMMEND THC CESSATION Check HCG level Discharge Planning Pending GI and renal clearance Westley Vergara DO Oct 22, 2017 12:50
[2017-10-22 14:01] LABS: HEPATITIS A AB IGM NEGATIVE (NEGATIVE); HEPATITIS B CORE AB IGM NEGATIVE (NEGATIVE); HEPATITIS B SURFACE ANTIGEN NEGATIVE (NEGATIVE); HEPATITIS C AB IgG REACTIVE (NEGATIVE)
[2017-10-23] VITALS: BP 140/71; PULSE 100; PULSE 94; RESP 16; TEMP 96.3; O2SAT 94
[2017-10-23] MEDS: HYDROmorphone HCL 4 MG TAB PO PRN ×2 (01:32→05:25)
[2017-10-23] MEDS: diphenhydrAMINE HCL 25 MG CAP PO PRN (01:32)
[2017-10-23 04:00] VITALS: BP 140/77; PULSE 79; RESP 18; TEMP 97; O2SAT 93
[2017-10-23] MEDS: HYDROmorphone HCL 2 MG TAB PO PRN ×2 (04:03→08:03)
[2017-10-23] MEDS ORDERED: SODIUM CHLORID 0.9% 500 ML IV PRN (04:30)
[2017-10-23] MEDS: ALPRAZolam 0.25 MG TAB PO PRN (05:24)
[2017-10-23 07:12] LABS: AUTOMATED NEUTROPHIL # 3.5 TH/MM3 (1.8-7.7); BASOPHIL # 0.1 TH/MM3 (0-0.2); EOSINOPHIL # 0.2 TH/MM3 (0-0.4); EOSINOPHIL % 3.8 % (0.0-4.0); HEMOGLOBIN 12.9 GM/DL (11.6-15.3); LYMPH % 34.4 % (9.0-44.0); LYMPHOCYTE # 2.3 TH/MM3 (1.0-4.8); MEAN CORPUSCULAR HEMOGLOBIN 29.9 PG (27.0-34.0); MEAN CORPUSCULAR HGB CONC 34.7 % (32.0-36.0); MEAN PLATELET VOLUME 10.4 FL (7.0-11.0); MONO % 7.6 % (0.0-8.0); MONOCYTE # 0.5 TH/MM3 (0-0.9); NEUT % 53.2 % (16.0-70.0); PLATELET COUNT 185 TH/MM3 (150-450); RED BLOOD COUNT 4.31 MIL/MM3 (4.00-5.30); RED CELL DISTRIBUTION WIDTH 15.5 % (11.6-17.2); WHITE BLOOD COUNT 6.6 TH/MM3 (4.0-11.0)
[2017-10-23 07:42] LABS: ALBUMIN 3.4 GM/DL (3.4-5.0); ALT (GPT) 178 U/L (10-53); AST (GOT) 49 U/L (15-37); BICARBONATE 26.3 MEQ/L (21.0-32.0); BLOOD UREA NITROGEN 46 MG/DL (7-18); CALCIUM 8.6 MG/DL (8.5-10.1); CHLORIDE 93 MEQ/L (98-107); CREATININE 6.11 MG/DL (0.50-1.00); GLOMERULAR FILTRATION RATE 8 ML/MIN (>89); GLUCOSE,RANDOM 159 MG/DL (74-106); SODIUM (NA) 134 MEQ/L (136-145)
[2017-10-23 07:50] LABS: ALKALINE PHOSPHATASE 283 U/L (45-117); FREE T4 1.56 NG/DL (0.76-1.46); TOTAL BILIRUBIN ADULT 0.6 MG/DL (0.2-1.0)
[2017-10-23 08:00] VITALS: BP 113/61; PULSE 88; RESP 17; TEMP 96.6; O2SAT 95
[2017-10-23 08:38] LABS: OVALOCYTES 1+ (NORMAL)
[2017-10-23] MEDS: SACUBITRIL/VALSARTAN 49 MG-51 MG TAB PO SCH (09:00)
[2017-10-23] MEDS: BUMETANIDE 1 MG TAB PO SCH (09:00)
[2017-10-23] MEDS: SODIUM CHLORIDE 0.9% FLUSH 10 ML FLUSH IV FLUSH SCH (09:00)
[2017-10-23] MEDS: DOCUSATE SODIUM 50 MG/SENNA 8.6 MG TAB PO SCH (09:00)
[2017-10-23] MEDS: CARVEDILOL 12.5 MG TAB PO SCH (09:00)
--- NOTE | 2017-10-23 09:05 | HHI.NPPN ---
Subjective General Problems: Anemia Renal Failure: Chronic, End Stage Renal Disease Interval History She is sleepy, appears overmedicated. Seen during dialysis. To go for EGD/ colonoscopy tomorrow. (Caryn Borja) Review of Systems General Constitutional: Fatigue (Caryn Borja) Gastrointestinal Gastrointestinal: Abdominal Pain (Caryn Borja) Objective Data Data Vital Signs Date Time Temp Pulse Resp B/P (MAP) Pulse Ox O2 Delivery O2 Flow Rate FiO2 10/23/17 08:00 96.6 88 17 113/61 (78) 95 10/23/17 04:00 97.0 79 18 140/77 (98) 93 10/23/17 00:00 100 10/23/17 00:00 96.3 94 16 140/71 (94) 94 10/22/17 20:54 95 Nasal Cannula 2.00 10/22/17 20:00 106 10/22/17 20:00 98.7 99 16 128/69 (88) 91 10/22/17 16:00 97.7 93 18 122/73 (89) 92 10/22/17 12:00 97.4 77 17 106/70 (82) 96 10/22/17 09:38 92 (Caryn Borja) -: 10/23/17 0602 10/23/17 0602 Tubes & Lines: Perma-Cath (Caryn Borja) Physical Exam General Appearance: Well Developed, No Acute Distress, Comfortable (Caryn Borja) Neck Neck Exam: Neck Supple (Caryn Borja) Pulmonary Resp Exam: Clear Bilaterally, Breath Sounds Equal (Caryn Borja) Cardiology CV Exam: Regular, Normal Sinus Rhythm (Caryn Borja) Gastrointestinal/Abdomen GI Exam: Soft, Non-Tender (Caryn Borja) Integumentary Skin Exam: Intact (Caryn Borja) Extremeties Extremities Exam: No Edema (Caryn Borja) Assessment/Plan Discussed Condition With: Patient Assessment Summary: Anemia of CKD, Fluid/Volume Overload, Proteinuria, Hypertension, Diabetes Mellitus, End Stage Renal Disease Problem List: (1) End stage renal disease ICD Codes: N18.6 - End stage renal disease Plan: Seen during dialysis today on a 3K, 350 BFR, goal 4L Dialysis will be continued MWF. Existing outpatient arrangements at [facility] Monitor fluid and electrolyte status. Avoid Gadolinium. High protein diet. Salt restriction to 2 grams/day. Fluid restriction to 1500 ml/day Due to reduced renal clearance, recommend dosage reduction of Xanax, oxycodone, and ATC Dilaudid. (2) Anemia of renal disease ICD Codes: D63.1 - Anemia in chronic kidney disease Plan: Epogen to be held due to Hemoglobin of more than 12. (3) Metabolic bone disease ICD Codes: E88.9 - Metabolic disorder, unspecified; M90.80 - Osteopathy in diseases classified elsewhere, unspecified site Plan: Monitor phosphorus, Renvela started. (4) Non-ischemic cardiomyopathy ICD Codes: I42.8 - Other cardiomyopathies Status: Chronic Plan: Volume control with dialysis. (5) Intractable vomiting ICD Codes: R11.10 - Vomiting, unspecified Status: Acute Plan: GI following. EGD/colon today. Discharge when cleared by GI. Plan patient can be discharged from renal standpoint. (Caryn Borja) Plan patient was seen and examined. Agree with above assessment and plan. Very drowsy , recommend to reduce narcotics. May have drug seeking behavior. Patient is cleared for discharge from renal standpoint. (John Hicks MD) Problem Qualifiers (1) Intractable vomiting: Qualified Codes: R11.2 - Nausea with vomiting, unspecified Caryn Borja Oct 23, 2017 09:05 John Hicks MD Oct 23, 2017 09:28
[2017-10-23] MEDS: GENTAMICIN SULFATE (DIALYSIS USE ONLY) 20 MG/2 ML VIAL OTHER PRN (12:00)
[2017-10-23] MEDS ORDERED: PROPOFOL 200 MG/20 ML AMP IV ONE (12:00)
[2017-10-23] MEDS: SEVELAMER CARBONATE 800 MG TAB PO SCH ×2 (12:00→17:00)
[2017-10-23] MEDS ORDERED: KETAMINE HCL 500 MG/5 ML VIAL ONE (12:45)
[2017-10-23] MEDS ORDERED: DO NOT ADM ANY ANTICOAGULANT DRUGS PRN (13:38)
[2017-10-23 14:27] LABS: ALPHA-1-ANTITRYPSIN 171 mg/dL (100 - 190)
--- NOTE | 2017-10-23 15:08 | HHI.PR ---
Subjective Remarks Follow-up for hyperemesis Patient had no complaints. Denied nausea/vomiting. Looks very comfortable. She is seen in dialysis. Patient is afebrile. Objective Vitals Vital Signs Date Time Temp Pulse Resp B/P (MAP) Pulse Ox O2 Delivery O2 Flow Rate FiO2 10/23/17 13:49 98.1 95 12 95/50 (65) 94 Room Air 10/23/17 13:47 96 12 96/55 (69) 100 Room Air 10/23/17 13:35 98.0 92 12 126/51 (76) 100 Nasal Cannula 2 10/23/17 08:00 96.6 88 17 113/61 (78) 95 10/23/17 04:00 97.0 79 18 140/77 (98) 93 10/23/17 00:00 100 10/23/17 00:00 96.3 94 16 140/71 (94) 94 10/22/17 20:54 95 Nasal Cannula 2.00 10/22/17 20:00 106 10/22/17 20:00 98.7 99 16 128/69 (88) 91 10/22/17 16:00 97.7 93 18 122/73 (89) 92 I/O 10/22/17 10/22/17 10/22/17 10/23/17 10/23/17 10/23/17 07:00 15:00 23:00 07:00 15:00 23:00 Intake Total 360 ml 210 ml 0 ml 100 ml Output Total 200 ml 4000 ml Balance 360 ml 10 ml 0 ml -3900 ml Intake Oral 360 ml 210 ml 0 ml IV Total 0 ml Other 100 ml Output Urine Total 200 ml Hemodialysis 4000 ml # Voids 0 1 # Bowel Movements 1 1 Result Diagram: 10/23/17 0602 10/23/17 0602 Objective Remarks GENERAL: in NAD CARDIOVASCULAR: Regular rate and rhythm without murmurs, gallops, or rubs. RESPIRATORY: Breath sounds equal bilaterally. No accessory muscle use. GASTROINTESTINAL: Abdomen soft, non-tender, nondistended. MUSCULOSKELETAL: No cyanosis, or edema. BACK: Nontender without obvious deformity. No CVA tenderness. Procedures HD Medications and IVs Current Medications Sodium Chloride (NS Flush) 2 ml UNSCH PRN IVF FLUSH AFTER USING IV ACCESS; Start 10/18/17 at 13:30; Stop 10/19/17 at 08:33; Status DC Albuterol/ Ipratropium (Duoneb Neb) 1 ampule Q15M INH Last administered on 14:18; Start 10/18/17 at 13:30; Stop 10/18/17 at 13:46; Status DC Morphine Sulfate (Morphine Inj) 2 mg ONCE ONCE IV PUSH ; Start 10/18/17 at 13: 30; Stop 10/18/17 at 13:30; Status DC Morphine Sulfate (Morphine Inj) 2 mg ONCE ONCE IV PUSH Last administered on 13:35; Start 10/18/17 at 13:30; Stop 10/18/17 at 13:31; Status DC Sodium Chloride (NS Flush) 2 ml UNSCH PRN IV FLUSH FLUSH AFTER USING IV ACCESS Last administered on 10/22/17 02:30; Start 10/18/17 at 15:00 Sodium Chloride (NS Flush) 2 ml BID IV FLUSH Last administered on 10/22/17 20: 29; Start 10/18/17 at 21:00 Ondansetron HCl (Zofran Inj) 4 mg Q6H PRN IVP NAUSEA OR VOMITING Last administered on 10/21/17 13:40; Start 10/18/17 at 15:00 Naloxone HCl (Narcan Inj) 0.4 mg UNSCH PRN IV PUSH SEE LABEL COMMENTS; Start 10/18/17 at 15:00 Senna/Docusate Sodium ([place]-Colace) 1 tab BID PO Last administered on 22:45; Start 10/18/17 at 21:00 Magnesium Hydroxide (Milk Of Magnesia Liq) 30 ml Q12HR PRN PO Mild constipation ; Start 10/18/17 at 15:00 Sennosides (Senokot) 17.2 mg Q12HR PRN PO Moderate constipation; Start at 15:00 Bisacodyl (Dulcolax Supp) 10 mg DAILY PRN RECTAL SEVERE CONSITIPATION; Start 10/18/17 at 16:00 Lactulose (Lactulose Liq) 30 ml DAILY PRN PO SEVERE CONSITIPATION; Start 10/18 at 16:00 Methylprednisolone Sodium Succinate (SoluMEDROL INJ) 125 mg ONCE ONCE IV PUSH Last administered on 10/18/17 15:15; Start 10/18/17 at 15:15; Stop 10/18/17 at 15:16; Status DC Acetaminophen/ Hydrocodone Bitart ([place] 5-325 Mg) 1 tab Q4H PRN PO PAIN SCALE 3 TO 5 Last administered on 10/19/17 04:37; Start 10/18/17 at 17:00; Stop 10/19/17 at 13:55; Status DC Acetaminophen/ Hydrocodone Bitart ([place] 7.5-325 Mg) 1 tab Q6H PRN PO PAIN SCALE 6 TO 10 Last administered on 10/19/17 00:34; Start 10/18/17 at 17:00; Stop 10/19/17 at 13:55; Status DC Bumetanide (Bumetanide) 4 mg BID PO Last administered on 10/22/17 20:30; Start 10/18/17 at 21:00 Carvedilol (Coreg) 25 mg Q12HR PO Last administered on 10/22/17 23:38; Start 10/18/17 at 21:00 Sacubitril/ Valsartan (Entresto 49-51 Mg) 1 tab BID PO Last administered on 10/22 23:37; Start 10/18/17 at 21:00 Ceftazidime 1000 mg/Sodium Chloride 100 ml @ 200 mls/hr Q24H IV Last administered on 10/18/17 20:43; Start 10/18/17 at 21:00; Stop 10/19/17 at 15 :28; Status DC Sodium Chloride 1,000 ml @ 0 mls/hr Q0M PRN OTHER For Prime & Rinse Back; Start 10/19/17 at 08:16 Heparin Sodium (Porcine) (Heparin Inj) 8,000 units UNSCH PRN IV FLUSH WITH DIALYSIS; Start 10/19/17 at 08:30 Sodium Chloride 1,000 ml @ 200 mls/hr Q5H PRN IV WITH DIALYSIS; Start at 08:16 Sodium Chloride 1,000 ml @ 0 mls/hr Q0M PRN OTHER WITH DIALYSIS; Start at 08:16 Mannitol (Mannitol Inj) 12.5 gm UNSCH PRN IV WITH DIALYSIS; Start 10/19/17 at 08:30 Albumin Human 100 ml @ 60 mls/hr UNSCH PRN IV WITH DIALYSIS; Start 10/19/17 at 08:30 Sodium Chloride (NS Flush) 5 ml UNSCH PRN IV FLUSH WITH DIALYSIS; Start at 08:30 Heparin Sodium (Porcine) (Heparin Inj) UNSCH PRN .XX WITH DIALYSIS Last administered on 10/20/17 10:56; Start 10/19/17 at 08:30 Gentamicin Sulfate (Gentamicin (Dialysis) Inj) 20 mg UNSCH PRN OTHER WITH DIALYSIS Last administered on 10/23/17 12:00; Start 10/19/17 at 08:30 Ondansetron HCl (Zofran Inj) 4 mg UNSCH PRN IV PUSH WITH DIALYSIS Last administered on 10/21/17 19:48; Start 10/19/17 at 08:30 Acetaminophen (Tylenol) 650 mg UNSCH PRN PO for headach, pain, temp > 101F; Start 10/19/17 at 08:30 Diphenhydramine HCl (Benadryl) 25 mg UNSCH PRN PO for hives/itching/ anaphylaxis Last administered on 10/23/17 01:32; Start 10/19/17 at 08:30 Nitroglycerin (Nitrostat Sl) 0.4 mg UNSCH PRN SL CHEST PAIN; Start 10/19/17 at 08:30 Clonidine (Catapres) 0.1 mg UNSCH PRN PO for BP > 180/100 X 2 readings; Start 10/19/17 at 08:30 Epoetin Enzo (Epogen Inj) 10,000 units UNSCH PRN IV PUSH WITH DIALYSIS Last administered on 10/20/17 10:57; Start 10/19/17 at 08:30; Stop 10/21/17 at 12: 01; Status DC Gelatin (Gelfoam 12 Mm/7 Mm Top) 1 foam UNSCH PRN TOP SEE LABEL COMMENTS; Start 10/19/17 at 08:30 Vancomycin HCl 1000 mg/Sodium Chloride 250 ml @ 250 mls/hr ONCE ONCE IV Last administered on 10/19/17 10:30; Start 10/19/17 at 10:30; Stop 10/19/17 at 11 :29; Status DC Alteplase, Recombinant (Cathflo Activase Inj) 6 mg ONCE ONCE INTRACATH Last administered on 12/30/17at 11:00; Start 10/19/17 at 11:00; Stop 10/19/17 at 11 :01; Status DC Hydromorphone HCl (Dilaudid) 2 mg Q4H PRN PO Breakthrough Pain Last administered on 10/23/17at 08:03; Start 10/19/17 at 14:00; Stop 10/23/17 at 09:49 ; Status DC Hydromorphone HCl (Dilaudid) 4 mg Q4H PRN PO Pain 7 to 10 Last administered on 10/20/17t 16:23; Start 10/20/17 at 14:15; Stop 10/20/17 at 18:42; Status DC Alprazolam (Xanax) 0.25 mg Q6H PRN PO Anxiety Last administered on 10/23/17at 05: 24; Start 10/20/17 at 14:15 Zolpidem Tartrate (Ambien) 5 mg HS PRN PO Insomnia Last administered on at 02:52; Start 10/20/17 at 14:15 Polyethylene Glycol/ Electrolytes (Colyte Liq) 4,000 ml ONCE ONCE PO Last administered on 10/21/17at 16:12; Start 10/21/17 at 16:00; Stop 10/21/17 at 16:01; Status DC Lactated Ringer's 1,000 ml @ 30 mls/hr Q24H PRN IV SEE LABEL COMMENTS; Start 10/20/17 at 17:30; Stop 10/23/17 at 17:29 Sodium Chloride 500 ml @ 30 mls/hr [id number] PRN IV SEE LABEL COMMENTS; Start at 17:30; Stop 10/23/17 at 17:29 Povidone Iodine (Betadine 5% Antisepsis Kit) 1 applic SOAP DRIER OPERATOR PRN EACH NARE SEE LABEL COMMENTS; Start 10/20/17 at 17:30; Stop 10/23/17 at 17:29 Chlorhexidine Gluconate (Chlorhexidine 2% Cloth) 3 pack SOAP DRIER OPERATOR PRN TOPICAL SEE LABEL COMMENTS; Start 10/20/17 at 17:30; Stop 10/23/17 at 17:29 Oxycodone/ Acetaminophen (Percocet 5-325 Mg) 1 tab Q4H PRN PO Pain 3 to 6; Start 12/31/17 at 18:45; Stop 10/21/17 at 12:08; Status DC Oxycodone/ Acetaminophen (Percocet 10-325 Mg) 1 tab Q4H PRN PO Pain 7 to 10; Start 10/20/17 at 18:45; Stop 10/20/17 at 20:42; Status DC Hydromorphone HCl (Dilaudid) 4 mg Q4H PRN PO PAIN 8-10 Last administered on 10/23at 05:25; Start 10/20/17 at 20:45; Stop 10/23/17 at 09:49; Status DC Oxycodone/ Acetaminophen (Percocet 7.5-325 Mg) 1 tab Q4H PRN PO PAIN SCALE 3 TO 6; Start 10/21/17 at 12:15 Sodium Chloride 500 ml @ 30 mls/hr [id number] PRN IV SEE LABEL COMMENTS; Start 10/23/17 at 04:30; Stop 10/26/17 at 04:29 Sevelamer Carbonate (Renvela) 1,600 mg TIDAC PO ; Start 10/23/17 at 12:00 Ketamine HCl (Ketalar Inj) 500 mg STK-MED ONCE .ROUTE ; Start 10/23/17 at 12:45; Stop 10/23/17 at 12:46; Status DC Miscellaneous Information ALL NURSING DEPARTME... UNSCH PRN .XX SEE LABEL COMMENTS; Start 10/23/17 at 13:38; Stop 10/24/17 at 13:37 A/P Assessment and Plan 27-year-old female admitted secondary to hyperemesis dehydration. Hyperemesis Dehydration /nausea/vomiting/ Abdominal pain /Elevated LFTs- lipase normal, u/s abdomen show hepatic steatosis vs liver disease. GI following. Patient asymptomatic at the moment. May be secondary to marijuana use. Patient scheduled for EGD/colonoscopy after dialysis. If workup is negative patient can be discharge home with follow-up with GI as outpatient. End-stage renal disease Nephrology following Continue dialysis per nephrology plan cleared from their standpoint for d/c Chronic systolic congestive heart failure Cardiomyopathy Caution with IV hydration/continue fluid restriction once diet resumed post procedure Follow clinically Hypertension Continue baseline treatments Follow blood pressures Diabetes mellitus type 2 Diet controlled Follow blood sugars currently on clears and NPO after midnight for procedure. OBESITY -Education on weight loss ready given. Discharge Planning If EGD and colonoscopy negative per GI can be discharge home. Christelle León MD Oct 23, 2017 15:08
[2017-10-23 15:09] LABS: SMOOTH MUSCLE TOTAL AUTOABS Negative (Negative); TRANSGLUTAMINASE IGA AB <1.2 U/mL; TRANSGLUTAMINASE IGG AB <1.2 U/mL
[2017-10-23 16:00] VITALS: BP 104/56; PULSE 89; RESP 17; TEMP 99; O2SAT 92
[2017-10-23 16:25] LABS: HEMOGLOBIN A1C 5.2 % (4.3-6.0)
[2017-10-23 16:43] LABS: ANA SCREEN NEG (NEG)
[2017-10-23 17:53] LABS: CERULOPLASMIN 38 mg/dL (18-53)
[2017-10-23 18:04] VITALS: O2SAT 92
[2017-10-23] MEDS ORDERED: RANI300T PO (19:32)
[2017-10-23] MEDS ORDERED: SEVEL800 PO (19:32)
[2017-10-23] MEDS ORDERED: PROT40TA PO (19:32)
--- NOTE | 2017-10-23 19:34 | HHI.DCPOC ---
Discharge Care Plan Diagnosis: (1) Reflux esophagitis (2) patchy colitis (3) Gastroparesis Goals to Promote Your Health * To prevent worsening of your condition and complications * To maintain your health at the optimal level Directions to Meet Your Goals Take your medications as prescribed Follow your dietary instruction Follow activity as directed Keep your appointments as scheduled Take your immunizations and boosters as scheduled If your symptoms worsen call your PCP, if no PCP go to Urgent Care Center or Emergency Room Smoking is Dangerous to Your Health. Avoid second hand smoke Call the 24-hour hour crisis hotline for domestic abuse at Ailyn Roman PA-C Oct 23, 2017 19:34
--- NOTE | 2017-10-23 19:41 | HHI.PR ---
Addendum To HEPAS Progress Not Reason for addendum: Additonal documentation Addendum Remarks Received call from RN requesting patient to be discharged. She states Dr. León requested clearance from GI prior to discharge. The patient has returned from EGD/colonoscopy, has tolerated oral intake, and wants to go home. No report of EGD/colonoscopy available yet in EMR therefore I called Dr. Grissom on his cell phone. He reports EGD showed reflux esophagitis and colonoscopy showed mild patchy colitis, likely ischemic given reduced ejection fraction; no signs of UC or Crohn's. He reports patient also has gastroparesis but does not recommend reglan or erythromycin at this time. He does recommend Protonix 40mg daily in am and Ranitidine 300mg at bedtime. Dr. Grissom states patient can be discharged home tonight with outpatient follow up. Ailyn Roman PA-C Oct 23, 2017 7:41 pm
[2017-10-23 20:00] VITALS: BP 121/69; PULSE 71; RESP 20; TEMP 97.6; O2SAT 99
--- NOTE | 2017-10-24 10:36 | HHI.DS ---
Discharge Summary Admission Date Oct 20, 2017 at 15:26 Discharge Date: Oct 23, 2017 Admitting Diagnosis intractable vomiting and diarrhea, renal insufficiency, elevated LFT (1) Gastroparesis ICD Code: K31.84 - Gastroparesis Diagnosis: Principal (2) Reflux esophagitis ICD Code: K21.0 - Gastro-esophageal reflux disease with esophagitis Diagnosis: Principal (3) patchy colitis Diagnosis: Principal Procedures HD Brief History - From Admission Patient is a 27-year-old female with past medical history of cardiomyopathy with ejection fraction of 15% status post AICD, ESRD on hemodialysis on Saturday, Saturday, Saturday, anxiety, diabetes diet controlled, hypertension and neuropathy presented to the emergency room with complaints of nausea and vomiting 3 days. She denies eating anything different. She denies any sick contacts. She states that on Saturday she went for hemodialysis and she was started on because she there was drainage from her port. Patient states she had fevers however she never took her temperature and admits to chills. She states that she has a runny nose and a cough for the past 3 days. She is to take her flu vaccine. She complains of abdominal pain mainly in the epigastric and left upper quadrant areas. She admits to having trouble breathing especially taking deep breaths. She has pain in her ribs. She states that the area where the port is is very tender. She states that her teletype installer is Dr. Allen. She states that she has been compliant with fluid restriction at home and only drinks 32 ounces a day CBC/BMP: 10/23/17 0602 10/23/17 0602 Significant Findings Laboratory Tests Test 10/22/17 06:27 10/23/17 06:02 Blood Urea Nitrogen 40 MG/DL (7-18) 46 MG/DL (7-18) Creatinine 5.63 MG/DL (0.50-1.00) 6.11 MG/DL (0.50-1.00) Albumin 3.1 GM/DL (3.4-5.0) Alkaline Phosphatase 279 U/L (45-117) 283 U/L (45-117) Aspartate Amino Transf (AST/SGOT) 88 U/L (15-37) 49 U/L (15-37) Alanine Aminotransferase (ALT/SGPT) 199 U/L (10-53) 178 U/L (10-53) Sodium Level 134 MEQ/L (136-145) 134 MEQ/L (136-145) Chloride Level 95 MEQ/L (98-107) 93 MEQ/L (98-107) Estimat Glomerular Filtration Rate 9 ML/MIN (>89) 8 ML/MIN (>89) Ovalocytes 1+ (NORMAL) Random Glucose 159 MG/DL (74-106) Phosphorus Level 8.0 MG/DL (2.5-4.9) Free Thyroxine 1.56 NG/DL (0.76-1.46) Imaging Last Impressions Chest X-Ray 10/18/17 1201 Signed Impressions: Service Date/Time: Wednesday, October 18, 2017 13:09 - CONCLUSION: 1. No acute abnormality or significant interval change. Vinay Waters MD Abdomen Ultrasound 10/18/17 0000 Signed Impressions: Service Date/Time: Wednesday, October 18, 2017 17:23 - CONCLUSION: 1. Redemonstration of atrophic echogenic kidneys consistent with medical renal disease. 2. Minimally increased hepatic echogenicity consistent with hepatic steatosis versus medical liver disease. Vinay Waters MD PE at Discharge GENERAL: in NAD CARDIOVASCULAR: Regular rate and rhythm without murmurs, gallops, or rubs. RESPIRATORY: Breath sounds equal bilaterally. No accessory muscle use. GASTROINTESTINAL: Abdomen soft, non-tender, nondistended. MUSCULOSKELETAL: No cyanosis, or edema. BACK: Nontender without obvious deformity. No CVA tenderness. Pt update on day of discharge see progress not and addendum from day of discharge. Hospital Course 27-year-old female admitted secondary to hyperemesis dehydration. Hyperemesis Dehydration /nausea/vomiting/ Abdominal pain /Elevated LFTs- lipase normal, u/s abdomen show hepatic steatosis vs liver disease. Gi consulted. Asymptomatic on the day of discharge. EGD/colonoscopy showing esophagitis and mild patchy colitis per Gi most likely due to EF and did not recommend any further treatment. As for her gastroparesis does not recommend reglan or erythromycin at this time. He does recommend Protonix 40mg daily in am and Ranitidine 300mg at bedtime. Dr. Grissom states patient can be discharged with outpatient follow up. End-stage renal disease Nephrology following Continue dialysis per nephrology plan cleared from their standpoint for d/c Chronic systolic congestive heart failure Cardiomyopathy stable. home medication resumed. Hypertension Continue baseline treatments Follow blood pressures Diabetes mellitus type 2 Diet controlled Follow blood sugars OBESITY -Education on weight loss ready given. Pt Condition on Discharge: Stable Discharge Disposition: Discharge Home Discharge Time: <= 30 minutes Discharge Instructions DIET: Follow Instructions for: Dialysis Diet Activities you can perform: Regular-No Restrictions Follow up Referrals: Gastroenterology - 1 Week with Caio Grissom MD Nephrology PCP Follow-up - 1 Week PCP Follow-up @ DR. DURÁN New Medications: Pantoprazole (Protonix) 40 Mg Tab 40 MG PO DAILY for Reflux, #30 TAB 0 Refills Ranitidine (Ranitidine) 300 Mg Tab 300 MG PO HS for Heartburn Management, #30 TAB 0 Refills Sevelamer Carbonate (Renvela) 800 Mg Tab 1600 MG PO TIDAC for ESRD for 30 Days, #180 TAB Continued Medications: Bumetanide (Bumetanide) 2 Mg Tab 4 MG PO BID, TAB 0 Refills Carvedilol (Coreg) 12.5 Mg Tab 25 MG PO Q12HR for CMP, #120 TAB Sacubitril-Valsartan (Entresto) 49-51 Mg Tab 1 TAB PO BID for Heart, #60 TAB Christelle León MD Oct 24, 2017 10:36
[2017-10-25 03:49] LABS: MITOCHONDRIAL ABS LESS THAN 20.0 U (<=20.0)
--- NOTE | 2017-10-25 20:21 | HHI.PR ---
Addendum To HEPAS Progress Not Reason for addendum: Additonal documentation (I called patient twice and noone picked up. I also used her mother's number which was the same number. There was no voicemail or answering machine. I wanted to follow up with patient to see how she was doing and to make sure patient understood her diagnosis, management, and prognosis since I was not the one who discharge patient.) Christelle León MD Oct 25, 2017 20:21
--- NOTE | 2017-10-26 14:54 | HHI.PR ---
Addendum To HEPAS Progress Not Reason for addendum: Additonal documentation (attempt to call patient twice at 14:50 and phone rings but no voicemail or answering machine) Christelle León MD Oct 26, 2017 14:54
--- NOTE | 2017-10-28 13:23 | HHI.PR ---
Addendum to Inpatient Note Addendum Reason: Additional Documentation (called patient and noone picked up. patient does not have voicemail or answering machine to leave a message. ) Christelle León MD Oct 28, 2017 13:23
== END 2017-10-23 20:34 | disposition home or self-care (01) | DRG 73 ==
LOC: NEPE 11:44 → NEDA 14:49 → NEPGCP 15:41 → OBSVTOIN 10-20 15:26 → N07A 10-20 17:51
PROVIDERS: ADMIT Family Medicine; ATTEND Family Medicine
PROC: 5A1D70Z Performance of Urinary Filtration, Intermittent, Less than 6 Hours Per Day (ICD-10-PCS; principal; 2017-10-19)
PROC: 0DB68ZX Excision of Stomach, Via Natural or Artificial Opening Endoscopic, Diagnostic (ICD-10-PCS; 2017-10-23)
PROC: 0DBE8ZX Excision of Large Intestine, Via Natural or Artificial Opening Endoscopic, Diagnostic (ICD-10-PCS; 2017-10-23 12:46)
DX: E11.43 Type 2 diabetes mellitus with diabetic autonomic (poly)neuropathy (principal); N18.6 End stage renal disease; I13.2 Hypertensive heart and chronic kidney disease with heart failure and with stage 5 chronic kidney disease, or end stage renal disease; O90.3 Peripartum cardiomyopathy; J45.41 Moderate persistent asthma with (acute) exacerbation; E11.22 Type 2 diabetes mellitus with diabetic chronic kidney disease; N25.0 Renal osteodystrophy; I50.22 Chronic systolic (congestive) heart failure; K52.9 Noninfective gastroenteritis and colitis, unspecified; K31.84 Gastroparesis; R11.2 Nausea with vomiting, unspecified; D63.1 Anemia in chronic kidney disease; K76.0 Fatty (change of) liver, not elsewhere classified; F41.9 Anxiety disorder, unspecified; E11.42 Type 2 diabetes mellitus with diabetic polyneuropathy; J40 Bronchitis, not specified as acute or chronic; K21.0 Gastro-esophageal reflux disease with esophagitis; E86.0 Dehydration; E66.9 Obesity, unspecified; K29.70 Gastritis, unspecified, without bleeding; G47.00 Insomnia, unspecified; Z87.891 Personal history of nicotine dependence; Z99.2 Dependence on renal dialysis; Z95.810 Presence of automatic (implantable) cardiac defibrillator
CPT/HCPCS: 71020; 76700; 76937; 80053; 80074; 82103; 82390; 82550; 82728; 83036; 83516; 83520; 83540; 83550; 83605; 83690; 83735; 83880; 84100; 84439; 84443; 84484; 84702; 85025; 85610; 85730; 86038; 86255; 87040; 87522; 87804; 87902; 88305; 90935; 93005; 94150; 94640; 94664; 96365; 96366; 96374; 96375; 96376; G0378; J0713; J1580; J1644; J2270; J2405; J2930; J2997; J3370; J7050; Q4081

== ENCOUNTER 2017-11-04 08:33 | Day surgery (SDC) | payer MEDICARE, OTHER ==
[~2017-11-04] VITALS: Ht 162.6 cm; Wt 84.0 kg
[~2017-11-04 08:33] MED LIST changes: +PROT40TA PO; +RANI300T PO; +SEVEL800 PO; -TRAM50TA PO; -VANC1000P IV; -ZOFR4TAB PO
[2017-11-04 08:45] VITALS: BP 149/98; PULSE 109; RESP 20; TEMP 97.8; O2SAT 98
[2017-11-04] MEDS ORDERED: VANC1INJ2 IV (09:17)
[2017-11-04 09:44] LABS: BICARBONATE 20.6 MEQ/L (21.0-32.0); CALCIUM 8.9 MG/DL (8.5-10.1); CREATININE 4.07 MG/DL (0.50-1.00)
[2017-11-04 10:35] LABS: INTERNATIONAL NORMALIZED RATIO 1.1 RATIO; PROTHROMBIN TIME - PATIENT 10.9 SEC (9.8-11.6)
[2017-11-04] MEDS ORDERED: VANCOMYCIN HCL 1000 MG VIAL ONE (10:55)
[2017-11-04] MEDS ORDERED: SODIUM CHLOR 0.9% 250 ML INJ 250 ML ONE (10:56)
[2017-11-04 11:00] VITALS: BP 138/88; PULSE 98; RESP 18; O2SAT 98
[2017-11-04] MEDS ORDERED: SODIUM CHLORIDE 0.9% 1000 ML IV SCH (11:00)
[2017-11-04] MEDS ORDERED: ceFAZolin 2 GM PREMIX 50 ML - implanted port/tunneled catheter insertion IV SCH (11:30)
[2017-11-04] MEDS ORDERED: VANCOMYCIN 1000 MG/NS 250 ML - implanted port/tunneled catheter IV SCH ×2 (11:30)
[2017-11-04] MEDS ORDERED: ONDANSETRON HCL 4 MG/2 ML VIAL ONE (13:56)
[2017-11-04] MEDS ORDERED: LORazepam 2 MG/ML VIAL ONE (13:56)
[2017-11-04] MEDS ORDERED: SODIUM BICARBONATE 8.4% INJ 50 ML ONE (14:12)
[2017-11-04 14:35] VITALS: BP 140/88; PULSE 101; PULSE 98; RESP 18; RESP 20; TEMP 98.1; O2SAT 95
--- NOTE | 2017-11-04 14:41 | PD.RAD ---
Post Procedure Progress Note Pre Procedure Diagnosis: (1) Cellulitis (2) Chest wall pain Post Procedure Diagnosis: (1) Chest wall pain (2) Cellulitis Procedure Date: Nov 04, 2017 Supervising Radiologist: Yohan Cerna Estimated blood loss: 3cc Anesthesia: Local, Conscious Sedation Plan of Activity Patient to Unit: ROPU Patient Condition: Fair Additional Comments: Pt. evaluated prior to procedure. insertion site for the PermCath appeared infected. 1gm vanco given through the PermCath. PermCath removed. Pt. will return in Am for replacement at different location See PACS Report for procedural detail/treatment Yohan Cerna MD Nov 04, 2017 14:41
--- NOTE | 2017-11-04 14:57 | RADRPT ---
EXAM DATE/TIME: 11/04/2017 00:00 [facility] COMPARISON: PERM CV CATH PLCMT W US RIGHT, September 06, 2017, 9:43. INDICATIONS : Patient with history of end-stage renal disease in need of tunnelled dialysis catheter removal due to possible infection. MEDICAL HISTORY : Diabetes, Cardiomyopathy with ejection fraction of 15%, ESRD, CHF, HTN, Neuropathy, Migraines SURGICAL HISTORY : AICD placement, Cholecystectomy, Port placement, AV Shunt, Dialysis catheter placement ENCOUNTER: Subsequent ACUITY: 2 months PAIN SCORE: 0/10 IMAGE SERIES: SEDATION TIME: 30minutes MEDICATION(S): 1.) 150 mcg fentanyl (Sublimaze) IV 2.) 2 mg lorazepam (Ativan) IV PROCEDURE : 1. PermaCath removal. The risks, benefits and alternatives to the procedure were explained and verbal and written consent w as obtained. The site was prepped in sterile fashion. Full sterile technique was used, including ca p, mask, sterile gloves and gown and a large sterile sheet. Hand hygiene and 2% chlorhexidine and/or betadine/alcohol prep was utilized per protocol for cutaneous antisepsis. The skin and subcutaneous tissues were infiltrated with local anesthetic solution. The tract was anesthetized with 1% Lidocaine using. The Permcath was dissected from the subcutaneous tissues and easily removed in one piece. Manual pressure was applied to the venotomy site until hem ostasis was obtained. Sterile dressing was applied. The patient tolerated the procedure well and there were no complications. CONCLUSION: Uncomplicated Permcath removal. Catheter tips were sent for culture and sensitivity. Yohan Cerna MD on November 04, 2017 at 14:54 Board Certified Radiologist. This report was verified electronically.
[2017-11-04 15:00] VITALS: BP 181/121; PULSE 99; RESP 20; O2SAT 95
[2017-11-04 15:30] VITALS: BP 152/86; PULSE 107; RESP 20; O2SAT 97
[2017-11-04 16:20] VITALS: BP 137/83; PULSE 102; RESP 20; O2SAT 97
== END 2017-11-04 16:20 | disposition home or self-care (01) ==
LOC: HROP 08:33 → HRIP 08:34 → HROP 16:20
PROVIDERS: ATTEND Internal Medicine Nephrology
DX: T80.219A Unspecified infection due to central venous catheter, initial encounter (principal); R07.89 Other chest pain; L03.90 Cellulitis, unspecified; I13.2 Hypertensive heart and chronic kidney disease with heart failure and with stage 5 chronic kidney disease, or end stage renal disease; N18.6 End stage renal disease; I50.9 Heart failure, unspecified; I42.9 Cardiomyopathy, unspecified; E11.22 Type 2 diabetes mellitus with diabetic chronic kidney disease; Z01.818 Encounter for other preprocedural examination
CPT/HCPCS: 36589; 80048; 85610; 85730; 87071; J2060; J2405; J3010; J3370; J7050

== ENCOUNTER 2017-11-05 08:30 | Day surgery (SDC) | payer MEDICARE, OTHER ==
[~2017-11-05] VITALS: Ht 165.1 cm; Wt 84.0 kg
[~2017-11-05 08:30] MED LIST changes: +VANC1INJ2 IV
[2017-11-05 08:49] VITALS: BP 146/103; PULSE 93; RESP 20; TEMP 98.3; O2SAT 98
[2017-11-05] MEDS ORDERED: VANCOMYCIN 1000 MG/NS 250 ML - implanted port/tunneled catheter IV SCH ×2 (09:15)
[2017-11-05] MEDS ORDERED: ceFAZolin 2 GM PREMIX 50 ML - implanted port/tunneled catheter insertion IV SCH (09:15)
[2017-11-05] MEDS ORDERED: SODIUM CHLORIDE 0.9% 1000 ML IV SCH (09:15)
[2017-11-05] MEDS ORDERED: MIDAZOLAM HCL 2 MG/2 ML VIAL ONE (09:35)
[2017-11-05 10:35] VITALS: BP 147/97; PULSE 93; RESP 18; TEMP 97.2; O2SAT 97
--- NOTE | 2017-11-05 10:39 | PD.RAD ---
Post Procedure Progress Note Pre Procedure Diagnosis: (1) End stage renal disease Post Procedure Diagnosis: (1) End stage renal disease Procedure Date: Nov 05, 2017 Supervising Radiologist: Yohan Cerna Estimated blood loss: 5cc Anesthesia: Local, Conscious Sedation Plan of Activity Patient to Unit: [facility] Patient Condition: Good Additional Comments: Right subclavian PermCath placed without difficulty. Full dictated report to follow See PACS Report for procedural detail/treatment Yohan Cerna MD Nov 05, 2017 10:39
[2017-11-05] MEDS ORDERED: HEPARIN SODIUM - IV 2,000 UNITS/2 ML VIAL IV FLUSH PRN (10:45)
[2017-11-05] MEDS ORDERED: SODIUM CHLORIDE 0.9% FLUSH 10 ML FLUSH IV FLUSH PRN (10:45)
[2017-11-05 10:50] VITALS: BP 120/55; PULSE 88; RESP 17; O2SAT 97
[2017-11-05 11:20] VITALS: BP 139/74; PULSE 72; RESP 18; O2SAT 95
[2017-11-05 11:50] VITALS: BP 137/75; PULSE 78; RESP 19; O2SAT 97
--- NOTE | 2017-11-05 13:43 | RADRPT ---
EXAM DATE/TIME: 11/05/2017 09:31 [facility] COMPARISON: CENTRAL VENOUS CATHETER REMOVAL, TUNNELED RIGHT, November 04, 2017, 0:00. INDICATIONS : Patient with end-stage renal disease in need of tunnelled dialysis catheter placement. MEDICAL HISTORY : Diabetes, Cardiomyopathy with ejection fraction of 15%, ESRD, CHF, HTN, Neuropathy, Migraines SURGICAL HISTORY : AICD placement, Cholecystectomy, Port placement, AV Shunt, Dialysis catheter placement and removal ENCOUNTER: Subsequent ACUITY: >1 year PAIN SCORE: 0/10 FLUORO TIME: 2.6 minutes IMAGE SERIES: 1 SEDATION TIME: 30 minutes ACCESS: Right subclavian vein SEDATION: 1.) 4 mg midazolam (Versed) IV 2.) 200 mcg fentanyl (Sublimaze) IV Prophylactic antibiotics were administered with appropriate pre-procedure timing. Vancomycin within 2 hours of procedure, Ancef (or alternative) within 1 hour of procedure. DEVICE: 1. 15 Serbian dual lumen 23 cm Lomas II Plus catheter PROCEDURE : 1. Ultrasound-guided venipuncture. 2. PermaCath placement. 3. Conscious sedation with continuous EKG and oximetry monitoring. The risks, benefits and alternatives to the procedure were explained and verbal and written consent w as obtained. The site was prepped in sterile fashion. Full sterile technique was used, including ca p, mask, sterile gloves and gown and a large sterile sheet. Hand hygiene and 2% chlorhexidine and/or betadine/alcohol prep was utilized per protocol for cutaneous antisepsis. Sterile gel and sterile p robe cover were utilized for ultrasound guidance. The skin and subcutaneous tissues were infiltrated with local anesthetic solution. With ultrasound and fluoroscopic guidance a dermatotomy was created over the prescribed vein. A micr opuncture set was used to access the targeted vein and serial dilatation was performed to accept the prescribed length catheter. A subcutaneous tunnel was created in a retrograde fashion the catheter w as pulled through the tunnel. The catheter was flushed and assembled and locked with heparin. The c atheter was sutured in place. Conscious sedation was performed with the prescribed dosages and duration as above in the presence of an independent trained radiology nurse to assist in the monitoring of the patient. EKG and oximetry remained stable throughout the procedure. The patient tolerated the procedure well and there were n o complications. The patient was sent to post anesthesia recovery in stable condition. CONCLUSION: Uncomplicated PermaCath placement as above. Yohan Cerna MD on November 05, 2017 at 13:39 Board Certified Radiologist. This report was verified electronically.
--- NOTE | 2017-11-05 13:44 | RADRPT ---
EXAM DATE/TIME: 11/05/2017 10:40 [place] COMPARISON: PERM CV CATH PLCMT W US RIGHT, November 05, 2017, 9:31. INDICATIONS : Patient with end-stage renal disease in need of IV access for dialysis catheter placement. MEDICAL HISTORY : Diabetes, Cardiomyopathy with ejection fraction of 15%, ESRD, CHF, HTN, Neuropathy, Migraines SURGICAL HISTORY : AICD placement, Cholecystectomy, Port placement, AV Shunt, Dialysis catheter placement and removal ENCOUNTER: Initial ACUITY: 1 day PAIN SCORE: 0/10 IMAGE SERIES: 0 ACCESS: Right basilic vein DEVICE(S): 1.) 3/4 Colombian Dilator PROCEDURE : 1. Ultrasound guided venous access. The risks, benefits and alternatives to the procedure were explained and verbal and written consent w as obtained. The site was prepped in sterile fashion. Full sterile technique was used, including ca p, mask, sterile gloves and gown and a large sterile sheet. Hand hygiene and 2% chlorhexidine and/or betadine/alcohol prep was utilized per protocol for cutaneous antisepsis. Sterile gel and sterile p robe cover were utilized for ultrasound guidance. The skin and subcutaneous tissues were infiltrate d with local anesthetic solution. With ultrasound guidance the prescribed vein was punctured for venous access. A 4 Colombian dilator was placed and was flushed and locked with heparin. The patient tolerated procedure well and there were n o complications. CONCLUSION: Uncomplicated ultrasound guided venous access. Yohan Cerna MD on November 05, 2017 at 13:40 Board Certified Radiologist. This report was verified electronically.
== END 2017-11-05 12:00 | disposition home or self-care (01) ==
LOC: HROP 08:30 → HRIP 08:34 → HROP 12:00
PROVIDERS: ATTEND Internal Medicine Nephrology
DX: I13.2 Hypertensive heart and chronic kidney disease with heart failure and with stage 5 chronic kidney disease, or end stage renal disease (principal); N18.6 End stage renal disease; I50.9 Heart failure, unspecified; I42.9 Cardiomyopathy, unspecified; G62.9 Polyneuropathy, unspecified; E11.40 Type 2 diabetes mellitus with diabetic neuropathy, unspecified; E11.22 Type 2 diabetes mellitus with diabetic chronic kidney disease; Z95.810 Presence of automatic (implantable) cardiac defibrillator; G43.909 Migraine, unspecified, not intractable, without status migrainosus
CPT/HCPCS: 36410; 36558; 76937; 77001; 99152; 99153; C1750; C1769; J0690; J1644; J2250; J3010; J3370; J7030; J7050

== ENCOUNTER 2018-06-03 20:48 | Inpatient (IN) ==
[2018-06-03] MEDS ORDERED: Morphine Inj 4 MG/ML Vial IV.PUSH ONE (22:45)
--- NOTE | 2018-06-03 23:26 | XR ---
EXAM DATE: 06/03/2018 11:09 PM EDT AGE/SEX: 28 years / Female INDICATIONS: Shortness of breath. Chest pain. Nausea. Vomiting. CLINICAL DATA: This is the patient's initial encounter. Patient reports that signs and symptoms have been present for 3 days and indicates a pain score of 3/10. MEDICAL/SURGICAL HISTORY: Hypertension. Dialysis. Pacemaker. Vas cath placement. COMPARISON: No prior exams available for comparison. FINDINGS: A single AP view of the chest demonstrates the lungs to be symmetrically aerated without evidence of mass, infiltrate or effusion. The cardiomediastinal contours are unremarkable. Cardiomegaly and inc rease in pulmonary vascularity. Right-sided vascular catheter with tip in the right atrium. Left-side d defibrillator with single intact lead. Osseous structures are intact. CONCLUSION: Cardiomegaly with increase in pulmonary vascularity. Electronically signed by: Ed Clarke MD 06/03/2018 11:24 PM EDT
--- NOTE | 2018-06-03 23:34 | ED ---
HPI General Chief complaint: Medical Clearance Stated complaint: urinary complaint Time Seen by Provider: 06/03/18 22:12 Source: patient Limitations: no limitations History of Present Illness HPI narrative: The patient is a 28 year old female who presents to the [facility] emergency department with a history of beginning to have nausea with vomiting 3-4 times today, associated with generalized body aches and shortness of breath with lying flat. The patient reports that the symptoms are similar to when she is been fluid overloaded in the past. She reports that since August she has been on hemodialysis on Saturday, Saturday, and Saturday. She reports that she went on hemodialysis as a complication of his severe cardiomyopathy with an ejection fraction of 15% that was cardiomyopathy after delivery in 2012. The patient reports that she had been living and [facility], however she came over to the area to reside with her daughter who is with her parents. She reports that she tried to switch her dialysis over to a local facility over here but was not able to do so. She reports that her last dialysis was on Saturday of last week. She has missed her Saturday and Saturday dialysis since then. She reports over the last 2 days having a cough productive of white sputum. She reports that she receives her dialysis through a Vas-Cath in the right chest. She denies having any fevers or chills. She denies having any diarrhea. Her last bowel movement was earlier today. Otherwise on review of systems, she denies having any neck pain , chest pain, abdominal pain, new urinary symptoms, or neurologic symptoms. Related Data Home Medications Medication Instructions Recorded Confirmed bumetanide 2 mg PO DAILY 06/04/18 06/04/18 carvedilol [Coreg] 6.25 mg PO BID 06/04/18 06/04/18 cinacalcet [Sensipar] 30 mg PO DAILY 06/04/18 06/04/18 sevelamer carbonate [Renvela] 1,600 mg PO TID 06/04/18 06/04/18 Allergies Allergy/AdvReac Type Severity Reaction Status Date / Time niacin Allergy Intermediate Verified 10/18/17 13:04 ketorolac AdvReac Mild SHAKING Verified 10/18/17 13:04 Review of Systems ROS: all other systems reviewed are negative (That which is mentioned in the HPI ) PMFSH History History Provided By: Patient Medical History Medical History Cardiomyopathy (Acute) delivery delivered (Acute) Dialysis patient (Acute) End stage renal disease (Acute) Fistula (Acute) Pacemaker (Acute) Surgical History Surgical History History of cholecystectomy (Acute) History of tubal ligation (Acute) Family History Family History Mother Hypertension Rheumatoid arthritis Father Pancreas hemorrhage Social History Social History Substance History: No History of Abuse Second Hand Smoke Exposure: Yes Smoking Status: Former smoker How Often Do You Have a Drink Containing Alcohol: Never Recent Travel in [facility] within the Last 8 Weeks: No Recent Out of Country Travel within the Last 8 Weeks: No Exam Const General: cooperative, no acute distress and well developed Nutritional Appearance: well nourished Orientation: alert, awake and oriented x3 HENMT Head: normocephalic and atraumatic Nose: no nasal discharge and no epistaxis Mouth: moist mucous membranes Throat: posterior oropharynx normal and uvula midline Eyes Sclera: normal sclerae Pupils: PERRL Neck Neck: no meningeal signs, trachea midline and no JVD Chest Chest: normal inspection of the chest (Examination of the patient's chest wall, the patient is noted to have Vas-Cath placement on the right side of the upper chest. No signs of infection, no surrounding erythema, edema, or purulent drainage noted.) Resp Effort & Inspection: no use of accessory muscles Auscultation: clear to auscultation bilaterally Cardio Rate: tachycardic (Sinus tachycardia in the low 100s. No pulse deficits to the extremities on simultaneous auscultation and palpation of her radial artery.) Rhythm: regular rhythm Heart Sounds: no murmurs GI Inspection: non-distended Palpation: soft, no hepatosplenomegaly and nontender Auscultation: normal bowel sounds Back/Spine/Pelvis Back: no CVA tenderness Skin General: dry skin (warm) Neuro General: alert, awake and oriented x3 Cranial Nerves: other (No facial asymmetry.) Speech: speech normal Motor: no movement abnormalities noted Extrem General: normal to inspection (No calf tenderness on palpation. 2+ pulses in all 4 extremities.), no clubbing, no cyanosis and edema (Trace to 1+ pitting edema bilateral lower extremities.) Laterality: bilaterally Psych Mood: congruent mood Affect: normal affect Judgment: judgment good Course Consultations Consultation #1: The patient's case including history, pertinent physical examination findings, and laboratory studies were discussed with Dr. OHARA. It was agreed that the patient would be admitted to the hospitalist service. Initial Documented Vital Signs Temperature 97.7 F 06/03/18 21:51 Pulse Rate 102 H 06/03/18 21:51 Respiratory Rate 18 06/03/18 21:51 Blood Pressure 160/97 H 06/03/18 21:51 Pulse Oximetry 97 06/03/18 21:51 Last Documented Vital Signs Temperature 97.5 F L 06/04/18 03:40 Pulse Rate 87 06/04/18 04:00 Respiratory Rate 17 06/04/18 03:40 Blood Pressure 130/76 06/04/18 03:40 Pulse Oximetry 99 06/04/18 03:40 Medical Decision Making MDM Narrative Medical decision making narrative: During the course of the patient's emergency department visit, the patient's history, examination, and differential diagnosis were reviewed with the patient. The patient was placed on a buzzle buffer with oximetry and frequent blood pressure monitoring. The patient had IV access obtained and blood work sent for analysis. Diagnostic evaluation was started regarding the patient's symptoms reportedly related to fluid overload after missing 2 dialysis sessions. The patient was initially provided morphine for pain, Zofran for nausea. The patient's diagnostic testing is remarkable for PT of 10.7, PTT 24.2, CBC shows a white count of 9.2, platelets 151 with a normal differential, hemoglobin 12.1, chemistry is remarkable for a lipase of 467 which is likely mildly elevated related to her renal failure, creatinine 6.13, chloride 108, BUN is 61, BNP 1734, albumin 3.0, magnesium 2.0, magnesium potassium is 4.0, CO2 22.3. Chest x-ray shows cardiomegaly with increase in pulmonary vascularity suggestive of mild fluid overload. The patient will be admitted to the hospital for fluid overload and hemodialysis. The patient's results were discussed with the patient, including the plan of care. I explained that further testing and/ or monitoring is indicated based on the patient's history, examination, and/ or laboratory findings. Therefore, I recommended admission for additional evaluation. The patient expressed understanding and was agreeable with this plan. The patient was admitted to the hospital in stable condition and sent to a bed under the care of [facility] service. Medical Screen Exam Complete: Yes Emergency Medical Condition: Yes Differential Diagnosis Differential Diagnosis: Hyperkalemia, versus acidosis, versus uremia, versus pulmonary edema from missed hemodialysis Medical Records Medical records reviewed: Yes I reviewed the patient's medical records. Lab Data Lab results reviewed: Yes I reviewed the patient's lab results. Result diagrams: 06/03/18 23:01 06/03/18 23:01 Lab Results 06/03/18 06/03/18 06/03/18 Range/Units 23:01 23:01 23:01 WBC 9.2 (4.0-11.0) th/mm3 RBC 3.90 L (4.00-5.30) mil/mm3 Hgb 12.1 (11.6-15.3) gm/dL Hct 35.7 (35.0-46.0) % MCV 91.6 (80.0-100.0) fL MCH 31.1 (27.0-34.0) pg MCHC 34.0 (32.0-36.0) % RDW 14.6 (11.6-17.2) % Plt Count 151 (150-450) th/mm3 MPV 10.3 (7.0-11.0) fL Neut % (Auto) 68.9 (16.0-70.0) % Lymph % (Auto) 21.5 (9.0-44.0) % Garza % (Auto) 4.7 (0.0-8.0) % Eos % (Auto) 3.6 (0.0-4.0) % Baso % (Auto) 1.3 (0.0-2.0) % Neut # (Auto) 6.3 (1.8-7.7) th/mm3 Lymph # (Auto) 2.0 (1.0-4.8) th/mm3 Garza # (Auto) 0.4 (0.0-0.9) th/mm3 Eos # (Auto) 0.3 (0.0-0.4) th/mm3 Baso # (Auto) 0.1 (0.0-0.2) th/mm3 WBC Differential . Differential Comment Auto diff final PT 10.7 (9.8-11.6) sec INR 1.1 Ratio APTT 24.2 L (24.3-30.1) sec Sodium (136-145) meq/L Potassium (3.5-5.1) meq/L Chloride (98-107) meq/L Carbon Dioxide (21.0-32.0) meq/L Anion Gap (5-15) meq/L BUN (7-18) mg/dL Creatinine (0.50-1.00) mg/dL Estimated GFR (>89) mL/min Random Glucose (74-106) mg/dL Calcium (8.5-10.1) mg/dL Magnesium (1.5-2.5) mg/dL Total Bilirubin (0.2-1.0) mg/dL AST (15-37) U/L ALT (10-53) U/L Alkaline Phosphatase (45-117) U/L B-Natriuretic Peptide 1734 H (0-100) pg/mL Total Protein (6.4-8.2) g/dL Albumin (3.4-5.0) g/dL Lipase (73-393) U/L 06/03/18 Range/Units 23:01 WBC (4.0-11.0) th/mm3 RBC (4.00-5.30) mil/mm3 Hgb (11.6-15.3) gm/dL Hct (35.0-46.0) % MCV (80.0-100.0) fL MCH (27.0-34.0) pg MCHC (32.0-36.0) % RDW (11.6-17.2) % Plt Count (150-450) th/mm3 MPV (7.0-11.0) fL Neut % (Auto) (16.0-70.0) % Lymph % (Auto) (9.0-44.0) % Garza % (Auto) (0.0-8.0) % Eos % (Auto) (0.0-4.0) % Baso % (Auto) (0.0-2.0) % Neut # (Auto) (1.8-7.7) th/mm3 Lymph # (Auto) (1.0-4.8) th/mm3 Garza # (Auto) (0.0-0.9) th/mm3 Eos # (Auto) (0.0-0.4) th/mm3 Baso # (Auto) (0.0-0.2) th/mm3 WBC Differential Differential Comment PT (9.8-11.6) sec INR Ratio APTT (24.3-30.1) sec Sodium 141 (136-145) meq/L Potassium 4.0 (3.5-5.1) meq/L Chloride 108 H (98-107) meq/L Carbon Dioxide 22.3 (21.0-32.0) meq/L Anion Gap 11 (5-15) meq/L BUN 61 H (7-18) mg/dL Creatinine 6.13 H (0.50-1.00) mg/dL Estimated GFR 8 L (>89) mL/min Random Glucose 93 (74-106) mg/dL Calcium 9.1 (8.5-10.1) mg/dL Magnesium 2.0 (1.5-2.5) mg/dL Total Bilirubin 0.3 (0.2-1.0) mg/dL AST 21 (15-37) U/L ALT 24 (10-53) U/L Alkaline Phosphatase 54 (45-117) U/L B-Natriuretic Peptide (0-100) pg/mL Total Protein 6.6 (6.4-8.2) g/dL Albumin 3.0 L (3.4-5.0) g/dL Lipase 467 H (73-393) U/L Imaging Data Radiologist's impression: Chest X-Ray 06/03/18 22:45 CONCLUSION: Cardiomegaly with increase in pulmonary vascularity. ECG Data Attestation: I personally reviewed and interpreted this ECG as follows: Interpretation: The patient had an EKG done on arrival. The patient's EKG shows a sinus rhythm heart rate of 92, QRS duration 124 ms, QTC 438 ms. The patient has nonspecific ST-T wave abnormalities. No acute ST segment elevation. T waves are inverted in V5, V6, 1, aVL. Discharge Plan Discharge Disposition Patient Disposition: 30 Still Patient Discharge Details Diagnosis: Pulmonary edema, Missed dialysis Physicians Team ED Provider: Marla Elias Primary Care Provider: Primary Care Nella,Imani Attending Provider: Westley Vergara Other Providers: Alexsander Puentes Discharge Interventions Interventions: ED Discharge Assessment Last Done: 06/04/18 03:01 Status ED Status: Left Department Discharge Information Discharge Date/Time: 06/04/18 03:01
[2018-06-03 23:39] LABS: Baso # (Auto) 0.1 th/mm3 (0.0-0.2); Baso % (Auto) 1.3 % (0.0-2.0); Eos # (Auto) 0.3 th/mm3 (0.0-0.4); Eos % (Auto) 3.6 % (0.0-4.0); Hematocrit 35.7 % (35.0-46.0); Hemoglobin 12.1 gm/dL (11.6-15.3); Lymph % (Auto) 21.5 % (9.0-44.0); Mean Corpuscular Hemoglobin 31.1 pg (27.0-34.0); Mean Corpuscular Volume 91.6 fL (80.0-100.0); Mean Platelet Volume 10.3 fL (7.0-11.0); Mono # (Auto) 0.4 th/mm3 (0.0-0.9); Mono % (Auto) 4.7 % (0.0-8.0); Neut # (Auto) 6.3 th/mm3 (1.8-7.7); Neut % (Auto) 68.9 % (16.0-70.0); Platelet Count 151 th/mm3 (150-450); Red Cell Distribution Width 14.6 % (11.6-17.2); White Blood Count 9.2 th/mm3 (4.0-11.0)
[2018-06-03 23:49] LABS: Activated Partial Thrombo Time 24.2 sec (24.3-30.1); INR 1.1 Ratio; Prothrombin Time 10.7 sec (9.8-11.6)
[2018-06-04 00:05] LABS: Alanine Aminotransferase 24 U/L (10-53)
[2018-06-04 00:07] LABS: Alkaline Phosphatase 54 U/L (45-117); Total Protein 6.6 g/dL (6.4-8.2)
[2018-06-04 00:14] LABS: Anion Gap 11 meq/L (5-15); Aspartate Aminotransferase 21 U/L (15-37); Blood Urea Nitrogen 61 mg/dL (7-18); Calcium 9.1 mg/dL (8.5-10.1); Carbon Dioxide 22.3 meq/L (21.0-32.0); Chloride 108 meq/L (98-107); Glomerular Filtration Rate 8 mL/min (>89); Glucose,Random 93 mg/dL (74-106); Lipase 467 U/L (73-393); Sodium 141 meq/L (136-145)
--- NOTE | 2018-06-04 01:18 | P.HPIM ---
History of Present Illness History of Present Illness: Mrs. Jones is a 28 year old female. She has a past history of cardiomyopathy related to . Subsequently she developed congestive heart failure which led to end-stage renal disease. She has a pacemaker due to her degree of congestive heart failure and risk for arrhythmias. Currently she has moved back to [facility]. She was living in a different city for a while and had established dialysis there. However she is moving back to [place]. She has not been able to obtain dialysis and missed her last 2 treatments. She complains of peripheral edema and shortness of breath. Imaging shows pulmonary edema. No other complaints. Nausea and vomiting have been present. No fevers. - Diagnosis (1) Renal failure (2) Renal failure (ARF), acute on chronic (3) ESRD (end stage renal disease) (4) Missed dialysis (5) Pulmonary edema (6) Peripheral edema Inpatient Certification: I certify that the inpatient services were ordered in accordance with Medicare regulations governing the order. This includes certification that hospital inpatient services are reasonable and necessary and in the case of services not specified as inpatient-only under 42 CFR 419.22(n), that they are appropriately provided as inpatient services in accordance to with the 2-midnight benchmark under 43 CFR 412.3(e) Estimated Total Length of Stay (Days): 2 Plans for Post Hospital Care: Home Review of Systems Constitutional: Denies chills, Denies fever(s), Denies night sweats Eyes: Denies blind spots, Denies blurry vision, Denies change in vision, Denies double vision Ears, Nose, Mouth, and Throat: Denies abnormal hearing, Denies bleeding gums, Denies change in voice Cardiovascular: Reports other, Denies chest pain, Denies chest pain at rest, Denies chest pain with activity Comments: Edema Respiratory: Reports shortness of breath, Denies cough, Denies wheezing Gastrointestinal: Denies abdominal pain, Denies black, tarry stools, Denies bright, red blood in stools Musculoskeletal: Denies abnormal walking, Denies back pain, Denies body aches Skin/Breast: Denies rash, Denies skin pain, Denies skin ulcer Neurologic: Denies abnormal hearing, Denies abnormal movements, Denies abnormal speech Psychiatric: Denies abnormal sleep pattern, Denies behavioral changes, Denies change in appetite PMFSH - History History Provided By: Patient - Medical History Medical History: Medical History (Last Reviewed 06/03/18 @ 23:38 by Marla Elias MD) Cardiomyopathy delivery delivered Dialysis patient End stage renal disease Fistula Pacemaker - Surgical History Surgical History: Surgical History (Last Reviewed 06/03/18 @ 23:38 by Marla Elias MD) History of cholecystectomy History of tubal ligation - Family History Family History: Family History (Last Updated 06/04/18 @ 01:18 by Yohan Frost MD) Mother Hypertension Rheumatoid arthritis Father Pancreas hemorrhage - Tobacco History Second Hand Smoke Exposure: No Smoking Status: Former smoker - Alcohol History How Often Do You Have a Drink Containing Alcohol: Never - Substance Use History Substance History: No History of Abuse - Substance Use Type Marijuana Status: Active Route Used: Inhalation Last Used: YESTERDAY - Travel History Recent Travel in the [place] Within the Last 8 Weeks: No Recent Travel Out of the Country Within the Last 8 Weeks: No - Immunization History Tetanus Immunization: <5 Years Hx Influenza Vaccine This Season: Yes Medications and Allergies Active Medications: Active Medications Al Hydroxide/Mg Hydroxide (Milk Of Cristian Flores) 30 ml PO Q12H PRN PRN Reason: Mild Constipation Ondansetron HCl (Zofran Inj) 4 mg IV.PUSH Q6H PRN PRN Reason: NAUSEA OR VOMITING Sodium Chloride (Ns Flush) 2 ml IV.FLUSH PRN PRN PRN Reason: FLUSH AFTER USING IV ACCESS Allergies Allergy/AdvReac Type Severity Reaction Status Date / Time niacin Allergy Intermediate Verified 10/18/17 13:04 ketorolac AdvReac Mild SHAKING Verified 10/18/17 13:04 Home Medications Medication Instructions Recorded Confirmed Type bumetanide 2 mg PO DAILY 06/04/18 06/04/18 History carvedilol [Coreg] 6.25 mg PO BID 06/04/18 06/04/18 History cinacalcet [Sensipar] 30 mg PO DAILY 06/04/18 06/04/18 History sevelamer carbonate [Renvela] 1,600 mg PO TID 06/04/18 06/04/18 History Exam Vital signs: Vital Signs 06/03/18 21:51 06/03/18 22:46 Temperature 97.7 F Pulse Rate 102 H Respiratory Rate 18 Blood Pressure 160/97 H Pulse Oximetry 97 97 Intake & Output 06/03/18 06/03/1806/04/18 06:59 18:59 06:59 Weight 90 kg Narrative: GENERAL: NAD, A&Ox3 HEAD: Normocephalic. NECK: Supple, trachea midline. No lymphadenopathy. EYES: No scleral icterus. No injection or drainage. CARDIOVASCULAR: Regular rate and rhythm without murmurs, gallops, or rubs. RESPIRATORY: Breath sounds equal bilaterally. No accessory muscle use. Bilateral ankles at bases. GASTROINTESTINAL: Abdomen soft, non-tender, nondistended. MUSCULOSKELETAL: No cyanosis. Peripheral edema is present SKIN: Warm and dry. NEURO: No focal neurological deficits. Results - Labs CBC & Chem 7: 06/03/18 23:01 06/03/18 23:01 Labs: Short CBC 06/03/18 Range/Units 23:01 WBC 9.2 (4.0-11.0) th/mm3 Hgb 12.1 (11.6-15.3) gm/dL Hct 35.7 (35.0-46.0) % Plt Count 151 (150-450) th/mm3 BMP 06/03/18 23:01 Sodium 141 Potassium 4.0 Chloride 108 H Carbon Dioxide 22.3 BUN 61 H Creatinine 6.13 H Calcium 9.1 Liver Function 06/03/18 Range/Units 23:01 Total Bilirubin 0.3 (0.2-1.0) mg/dL AST 21 (15-37) U/L ALT 24 (10-53) U/L Alkaline Phosphatase 54 (45-117) U/L Albumin 3.0 L (3.4-5.0) g/dL - Imaging Impressions Chest X-Ray 06/03/18 22:45 CONCLUSION: Cardiomegaly with increase in pulmonary vascularity. Caprini VTE Risk Assessment Caprini VTE Risk Assessment: No/Low Risk (score <= 1) Caprini Risk Assessment Model: Point Value = 1 Point Value = 2 Point Value = 3 Point Value = 5 Age 41-60 Minor surgery BMI > 25 kg/m2 Swollen legs Varicose veins or History of unexplained or recurrent spontaneous Oral contraceptives or hormone replacement Sepsis (< 1 month) Serious lung disease, including pneumonia (< 1 month) Abnormal pulmonary function Acute myocardial infarction Congestive heart failure (< 1 month) History of inflammatory bowel disease Medical patient at bed rest Age 61-74 Arthroscopic surgery Major open surgery (> 45 min) Laparoscopic surgery (> 45 min) Malignancy Confined to bed (> 72 hours) Immobilizing plaster cast Central venous access Age >= 75 History of VTE Family history of VTE Factor V Leiden Prothrombin [id number] Lupus anticoagulant Anticardiolipin antibodies Elevated serum homocysteine Heparin-induced thrombocytopenia Other congenital or acquired thrombophilia Stroke (< 1 month) Elective arthroplasty Hip, pelvis, or leg fracture Acute spinal cord injury (< 1 month) Prophylaxis Regimen: Total Risk Factor Score Risk Level Prophylaxis Regimen 0-1 Low Early ambulation 2 Moderate Order ONE of the following: *Sequential Compression Device (SCD) *Heparin 5000 units SQ BID 3-4 Higher Order ONE of the following medications: *Heparin 5000 units SQ TID *Enoxaparin/Lovenox 40 mg SQ daily (WT < 150 kg, CrCl > 30 mL/min) *Enoxaparin/Lovenox 30 mg SQ daily (WT < 150 kg, CrCl > 10-29 mL/min) *Enoxaparin/Lovenox 30 mg SQ BID (WT < 150 kg, CrCl > 30 mL/min) AND/OR *Sequential Compression Device (SCD) 5 or more Highest Order ONE of the following medications: *Heparin 5000 units SQ TID (Preferred with Epidurals) *Enoxaparin/Lovenox 40 mg SQ daily (WT < 150 kg, CrCl > 30 mL/min) *Enoxaparin/Lovenox 30 mg SQ daily (WT < 150 kg, CrCl > 10-29 mL/min) *Enoxaparin/Lovenox 30 mg SQ BID (WT < 150 kg, CrCl > 30 mL/min) AND *Sequential Compression Device (SCD) Assessment and Plan - Assessment (1) Renal failure Code(s): N19 - Unspecified kidney failure Status: Acute (2) Renal failure (ARF), acute on chronic Code(s): N17.9 - Acute kidney failure, unspecified; N18.9 - Chronic kidney disease, unspecified Status: Acute (3) ESRD (end stage renal disease) Code(s): N18.6 - End stage renal disease Status: Acute (4) Missed dialysis Status: Acute (5) Pulmonary edema Code(s): J81.1 - Chronic pulmonary edema Status: Acute (6) Peripheral edema Code(s): R60.9 - Edema, unspecified Status: Acute - Plan 28-year-old female admitted secondary to acute on chronic renal failure related to missed dialysis, with pulmonary edema peripheral edema. Acute kidney failure on chronic kidney disease ESRD Pulmonary Edema Peripheral Edema Missed Dialysis Consult nephrology avoid nephrotoxins Follow urine output Hemodialysis needed Establishment of outpatient dialysis needed Etiology of her renal disease could strictly be related to cardiorenal syndrome but may also represent nephrotic syndrome or a combination. Chronic cardiomyopathy, Continue diuresis Continue Coreg Continue Entresto Defibrillator present Diabetes mellitus type 2 Diet controlled Follow blood sugars Continue diabetic diet Hypertension Continue Coreg Follow blood pressures DVT prophylaxis SCDs Discharge Planning Needs to re-establish Outpatient Dialysis locally prior to discharge
[2018-06-04] MEDS ORDERED: Dextrose 50% in Water 50 ML Vial IV.PUSH PRN (02:33)
[2018-06-04] MEDS: Insulin NovoLOG Aspart Correctional Sugar Inj SQ SCH ×4 (08:36→20:01)
--- NOTE | 2018-06-04 08:42 | ECG ---
Date Performed: 06/04/2018 Time Performed: 00:04:10 PTAGE: 28 years EKG: Sinus rhythm POSSIBLE LEFT ATRIAL ENLARGEMENT LEFT VENTRICULAR HYPERTROPHY AND ST-T CHANGE POSSIBLE SEPTAL MYOCAR DIAL INFARCTION ABNORMAL ECG PREVIOUS TRACING : 10/18/2017 14.45 No significant change from previous tracing noted. DOCTOR: Dragan Wang Interpretating Date/Time 06/04/2018 08:41:34
[2018-06-04] MEDS ORDERED: Tuberculin PPD 5 UNITS/0.1 ML Syringe I-DERMAL ONE (11:00)
--- NOTE | 2018-06-04 11:06 | P.PNIM ---
Subjective Interval history: Mrs. Jones is a 28 year old female. She has a past history of cardiomyopathy related to . Subsequently she developed congestive heart failure which led to end-stage renal disease. She has a pacemaker/AICD due to her degree of congestive heart failure and risk for arrhythmias. Currently she has moved back to [facility]. She was living in a different city([place], [place]) for a while and had established dialysis there. However she HAS MOVED back to [place]. She has not been able to obtain dialysis and missed her last 2 treatments. She complains of peripheral edema and shortness of breath. Imaging shows pulmonary edema. No other complaints. Nausea and vomiting have been present. No fevers. 8-15 WILL NEED TO BE SET UP FOR OUTPATIENT HD CONSULT NEPHROLOGY Physical Exam Vital signs: Vital Signs 06/03/18 21:51 06/03/18 22:46 06/04/18 02:32 Temperature 97.7 F 97.0 F L Pulse Rate 102 H 104 H Respiratory Rate 18 20 Blood Pressure 160/97 H 160/108 H Pulse Oximetry 97 97 100 06/04/18 03:40 06/04/18 04:00 06/04/18 08:00 Temperature 97.5 F L 98.7 F Pulse Rate 77 87 85 Respiratory Rate 17 18 Blood Pressure 130/76 143/97 H Pulse Oximetry 99 100 06/04/18 08:16 Temperature Pulse Rate 85 Respiratory Rate Blood Pressure Pulse Oximetry Intake & Output 06/03/18 06/04/18 06/04/18 18:59 06:59 18:59 Weight 90 kg Other: Weight On Admission 90 kg Narrative: GENERAL: NAD, A&Ox3 HEAD: Normocephalic. Atraumatic NECK: Supple, trachea midline. No lymphadenopathy. EYES: No scleral icterus. No injection or drainage. EOMI Tongue is midline neck is supple there is no JVD or mucosa is moist CARDIOVASCULAR: Regular rate and rhythm without murmurs, gallops, or rubs. S1- S2 no S3 or S4 RESPIRATORY: Breath sounds equal bilaterally. No accessory muscle use. Bilateral ankles at bases. Right-sided dialysis catheter and AICD in place GASTROINTESTINAL: Abdomen soft, non-tender, nondistended. MUSCULOSKELETAL: No cyanosis. Peripheral edema is present SKIN: Warm and dry. NEURO: No focal neurological deficits. Results - Labs CBC & Chem 7: 06/03/18 23:01 06/03/18 23:01 Laboratory Results - last 24 hr 06/03/18 06/03/18 06/03/18 23:01 23:01 23:01 WBC 9.2 RBC 3.90 L Hgb 12.1 Hct 35.7 MCV 91.6 MCH 31.1 MCHC 34.0 RDW 14.6 Plt Count 151 MPV 10.3 Neut % (Auto) 68.9 Lymph % (Auto) 21.5 [place] % (Auto) 4.7 Eos % (Auto) 3.6 Baso % (Auto) 1.3 Neut # (Auto) 6.3 Lymph # (Auto) 2.0 [place] # (Auto) 0.4 Eos # (Auto) 0.3 Baso # (Auto) 0.1 WBC Differential . Differential Comment Auto diff final PT 10.7 INR 1.1 APTT 24.2 L Sodium Potassium Chloride Carbon Dioxide Anion Gap BUN Creatinine Estimated GFR POC Glucose Random Glucose Calcium Magnesium Total Bilirubin AST ALT Alkaline Phosphatase B-Natriuretic Peptide 1734 H Total Protein Albumin Lipase 06/03/18 06/04/18 23:01 08:30 WBC RBC Hgb Hct MCV MCH MCHC RDW Plt Count MPV Neut % (Auto) Lymph % (Auto) [place] % (Auto) Eos % (Auto) Baso % (Auto) Neut # (Auto) Lymph # (Auto) [place] # (Auto) Eos # (Auto) Baso # (Auto) WBC Differential Differential Comment PT INR APTT Sodium 141 Potassium 4.0 Chloride 108 H Carbon Dioxide 22.3 Anion Gap 11 BUN 61 H Creatinine 6.13 H Estimated GFR 8 L POC Glucose 101 Random Glucose 93 Calcium 9.1 Magnesium 2.0 Total Bilirubin 0.3 AST 21 ALT 24 Alkaline Phosphatase 54 B-Natriuretic Peptide Total Protein 6.6 Albumin 3.0 L Lipase 467 H - Imaging Impressions Chest X-Ray 06/03/18 22:45 CONCLUSION: Cardiomegaly with increase in pulmonary vascularity. Assessment and Plan - Assessment (1) Renal failure Code(s): N19 - Unspecified kidney failure Status: Acute (2) Renal failure (ARF), acute on chronic Code(s): N17.9 - Acute kidney failure, unspecified; N18.9 - Chronic kidney disease, unspecified Status: Acute (3) ESRD (end stage renal disease) Code(s): N18.6 - End stage renal disease Status: Acute (4) Missed dialysis Status: Acute (5) Pulmonary edema Code(s): J81.1 - Chronic pulmonary edema Status: Acute (6) Peripheral edema Code(s): R60.9 - Edema, unspecified Status: Acute - Plan 28-year-old female admitted secondary to acute on chronic renal failure related to missed dialysis, with pulmonary edema peripheral edema. Acute kidney failure on chronic kidney disease ESRD Pulmonary Edema Peripheral Edema Missed Dialysis Consult nephrology avoid nephrotoxins Follow urine output Hemodialysis needed Establishment of outpatient dialysis needed Etiology of her renal disease could strictly be related to cardiorenal syndrome but may also represent nephrotic syndrome or a combination. Noncompliance with medication regimen Will need to be set up for hemodialysis as an outpatient for 2 case management and nephrology Chronic cardiomyopathy, Continue diuresis Continue Coreg Continue Entresto Defibrillator present Diabetes mellitus type 2 Diet controlled Follow blood sugars Continue diabetic diet Hypertension Continue Coreg Follow blood pressures DVT prophylaxis SCDs Discharge Planning Needs to re-establish Outpatient Dialysis locally prior to discharge A.m. labs Code Status: Full code Discussed Condition With: RN and patient and case management Discharge Planning: When she is set up for outpatient hemodialysis and cleared by nephrology for discharge (5) Pulmonary edema Qualifiers: Chronicity: acute Qualified Code(s): J81.0 - Acute pulmonary edema
[2018-06-04] MEDS ORDERED: Heparin 10,000 UNITS/10 ML Vial (for IV use) OTHER PRN ×2 (11:09)
[2018-06-04] MEDS ORDERED: Sod Chloride 0.9% Inj 1,000 ML IV.CONT PRN (11:09)
[2018-06-04] MEDS ORDERED: Gelatin 12 MM/7 MM Topical Foam TOPICAL PRN (11:09)
[2018-06-04] MEDS ORDERED: Sod Chloride 0.9% Inj 1,000 ML OTHER PRN ×2 (11:09)
[2018-06-04] MEDS ORDERED: Albumin Human 25% Inj 100 ML IV.SIG PRN (11:09)
[2018-06-04] MEDS ORDERED: Acetaminophen 325 MG Tablet PO PRN (11:09)
--- NOTE | 2018-06-04 12:40 | XR ---
EXAM DATE: 06/04/2018 12:36 PM EDT AGE/SEX: 28 years / Female INDICATIONS: . Chest pain and shortness of breath. CLINICAL DATA: This is the patient's subsequent encounter. Patient reports that signs and symptoms h ave been present for 2 days and indicates a pain score of 6/10. MEDICAL/SURGICAL HISTORY: Hypertension. Congestive heart failure. Cardiomyopathy. Pacemaker. COMPARISON: [facility], CHEST 1V SINGLE AP, 06/03/2018. . FINDINGS: Stable AICD device and right IJ tunneled dialysis catheter. No significant new focal pleural or paren chymal opacities. Cardiac silhouette is enlarged with slight indistinct central pulmonary vascularity . Remainder of the exam is unchanged. CONCLUSION: 1. No significant interval change. 2. Cardiomegaly with slight positive fluid balance. Electronically signed by: Vinay Waters MD 06/04/2018 12:38 PM EDT
[2018-06-04] MEDS: Carvedilol 6.25 MG Tablet PO SCH ×2 (13:02→20:05)
[2018-06-04 13:57] LABS: Hepatitits B Surface Antigen Nonreactive (Nonreactive)
[2018-06-04 14:19] LABS: Hepatitis A IgM Antibody Nonreactive (Nonreactive)
[2018-06-04 15:28] LABS: Hepatitis A IgM Antibody Nonreactive (Nonreactive); Hepatitits B Surface Antigen Nonreactive (Nonreactive)
--- NOTE | 2018-06-04 15:58 | P.CONNP ---
History of Present Illness Service: Nephrology Consult date: 06/04/18 Requesting Physician: Yohan Frost Reason for Consult: End stage renal disease on hemodialysis Primary Care Provider: No Primary Care Physician Family Provider: No Primary Care Physician History of Present Illness: Patient is a 28 year old female with cardiomyopathy with pacemaker with EF 15 % related to and end stage renal disease on hemodialysis. Presented to the [facility] emergency department with a history of beginning to have nausea with vomiting 3-4 times today, associated with generalized body aches and shortness of breath with lying flat. Last hemodialysis last Saturday on the . She has recently moved back to [facility] from and has not established hemodialysis in [facility]. Imaging shows pulmonary edema. Nephrology is consulted for management of end stage renal disease. Perma cath in right IJ. Hemodialysis planned for today. [facility] - History History Provided By: Patient - Medical History Medical History: Medical History (Last Reviewed 06/03/18 @ 23:38 by Marla Elias MD) Cardiomyopathy delivery delivered Dialysis patient End stage renal disease Fistula Pacemaker - Surgical History Surgical History: Surgical History (Last Reviewed 06/03/18 @ 23:38 by Marla Elias MD) History of cholecystectomy History of tubal ligation - Family History Family History: Family History (Last Updated 06/04/18 @ 01:18 by Yohan Frost MD) Mother Hypertension Rheumatoid arthritis Father Pancreas hemorrhage - Tobacco History Second Hand Smoke Exposure: Yes Smoking Status: Former smoker - Alcohol History How Often Do You Have a Drink Containing Alcohol: Never - Substance Use History Substance History: No History of Abuse - Substance Use Type Marijuana Status: Active Route Used: Inhalation Last Used: YESTERDAY - Travel History Recent Travel in the [place] Within the Last 8 Weeks: No Recent Travel Out of the Country Within the Last 8 Weeks: No - Immunization History Tetanus Immunization: Unsure Hx Influenza Vaccine This Season: Yes Medications and Allergies Active Medications: Active Medications Acetaminophen (Tylenol) 650 mg PO UNSCH PRN PRN Reason: SEE LABEL COMMENTS Hydrocodone Bitart/Acetaminophen ([place] 10/325) 1 tab PO Q4H PRN PRN Reason: Pain 7 to 10 Last Admin: 06/04/18 08:31 Dose: 1 tab Hydrocodone Bitart/Acetaminophen ([place] 5/325) 1 tab PO Q4H PRN PRN Reason: Pain 3 to 6 Last Admin: 06/04/18 03:58 Dose: 1 tab Al Hydroxide/Mg Hydroxide (Milk Of Cristian Flores) 30 ml PO Q12H PRN PRN Reason: Mild Constipation Bumetanide (Bumex) 2 mg PO DAILY [facility] Last Admin: 06/04/18 13:02 Dose: 2 mg Carvedilol (Coreg) 6.25 mg PO BID [facility] Last Admin: 06/04/18 13:02 Dose: 6.25 mg Cinacalcet (Sensipar) 30 mg PO DAILY [facility] Last Admin: 06/04/18 13:23 Dose: 30 mg Clonidine HCl (Catapres) 0.1 mg PO UNSCH PRN PRN Reason: SEE LABEL COMMENTS Dextrose (D50w Vial) 50 ml IV.PUSH UNSCH PRN PRN Reason: PER HYPOGLYCEMIA PROTOCOL Diphenhydramine HCl (Benadryl) 25 mg PO UNSCH PRN PRN Reason: SEE LABEL COMMENTS Gelatin (Gelfoam 12 Mm/7 Mm Topical) 1 foam TOPICAL PRN PRN PRN Reason: help stop bleeding from site Gentamicin Sulfate (Gentamicin Inj) 20 mg OTHER WITH DIALYSIS PRN PRN Reason: Dwell Gentamycin Lock Glucagon (Glucagon Inj) 1 mg OTHER PRN PRN PRN Reason: for Hypoglycemia Protocol Heparin Sodium (Porcine) (Heparin Inj) 8,000 units OTHER WITH DIALYSIS PRN PRN Reason: for machine prime Heparin Sodium (Porcine) (Heparin Inj) 1,000 units OTHER WITH DIALYSIS PRN PRN Reason: Dwell Heparin to Fill Catheter Sodium Chloride (Ns Inj) 1,000 mls @ 0 mls/hr OTHER .Q0M PRN PRN Reason: for prime and rinse back Sodium Chloride (Ns Inj) 1,000 mls @ 0 mls/hr IV.CONT .Q0M PRN PRN Reason: hypotension / volume replace Albumin Human (Flexbumin 25% Inj) 100 mls @ 60 mls/hr IV.SIG WITH DIALYSIS PRN PRN Reason: hypotension / volume replace Sodium Chloride (Ns Inj) 1,000 mls @ 200 mls/hr OTHER .Q5H PRN PRN Reason: for dialyzer flush PRN Insulin Aspart (Novolog Insulin Correctional Sugar Inj) 0 unit SQ ACHS [facility]; Protocol Last Admin: 06/04/18 13:02 Dose: Not Given Mannitol (Mannitol Inj) 12.5 gm IV.PUSH UNSCH PRN PRN Reason: hypotension / volume replace Nitroglycerin (Nitrostat Sl) 0.4 mg SL Q5M PRN PRN Reason: CHEST PAIN Ondansetron HCl (Zofran Inj) 4 mg IV.PUSH Q6H PRN PRN Reason: NAUSEA OR VOMITING Last Admin: 06/04/18 03:57 Dose: 4 mg Ondansetron HCl (Zofran Inj) 4 mg IV.PUSH UNSCH PRN PRN Reason: NAUSEA OR VOMITING Sevelamer Carbonate (Renvela) 1,600 mg PO TID [facility] Last Admin: 06/04/18 13:23 Dose: 1,600 mg Skin Test Antigens (Skin Test Result) 1 each OTHER Q24H [facility] Stop: 06/07/18 11:01 Sodium Chloride (Ns Flush) 2 ml IV.FLUSH PRN PRN PRN Reason: FLUSH AFTER USING IV ACCESS Sodium Chloride (Ns Flush) 5 ml IV.FLUSH PRN PRN PRN Reason: flush each lumen during HD Allergies Allergy/AdvReac Type Severity Reaction Status Date / Time niacin Allergy Intermediate Verified 10/18/17 13:04 ketorolac AdvReac Mild SHAKING Verified 10/18/17 13:04 Home Medications Medication Instructions Recorded Confirmed Type bumetanide 2 mg PO DAILY 06/04/18 06/04/18 History carvedilol [Coreg] 6.25 mg PO BID 06/04/18 06/04/18 History cinacalcet [Sensipar] 30 mg PO DAILY 06/04/18 06/04/18 History sevelamer carbonate [Renvela] 1,600 mg PO TID 06/04/18 06/04/18 History Exam Vital signs: Vital Signs 06/03/18 21:51 06/03/18 22:46 06/04/18 02:32 Temperature 97.7 F 97.0 F L Pulse Rate 102 H 104 H Respiratory Rate 18 20 Blood Pressure 160/97 H 160/108 H Pulse Oximetry 97 97 100 06/04/18 03:40 06/04/18 04:00 06/04/18 08:00 Temperature 97.5 F L 98.7 F Pulse Rate 77 87 85 Respiratory Rate 17 18 Blood Pressure 130/76 143/97 H Pulse Oximetry 99 100 06/04/18 08:16 06/04/18 12:15 Temperature Pulse Rate 85 79 Respiratory Rate Blood Pressure Pulse Oximetry Intake & Output 06/03/18 06/04/18 06/04/18 18:59 06:59 18:59 Weight 90 kg Other: Weight On Admission 90 kg Narrative: GENERAL:A&Ox3 HEAD: Normocephalic. Atraumatic NECK: Supple, trachea midline. No lymphadenopathy. CARDIOVASCULAR: Regular rate and rhythm without murmurs, gallops, or rubs. S1- S2 no S3 or S4 RESPIRATORY: Breath sounds equal bilaterally. No accessory muscle use. Right- sided dialysis catheter and AICD in place GASTROINTESTINAL: Abdomen soft, non-tender, nondistended. MUSCULOSKELETAL: No cyanosis. Peripheral edema is present SKIN: Warm and dry. Results - Lab Results 06/03/18 23:01 06/03/18 23:01 Most recent lab results Calcium 9.1 mg/dL (8.5-10.1) 06/03/18 23:01 Magnesium 2.0 mg/dL (1.5-2.5) 06/03/18 23:01 Assessment and Plan - Assessment (1) Renal failure Code(s): N19 - Unspecified kidney failure Status: Acute Plan: \ End stage renal disease on HD with normally scheduled days on Saturday, Saturday , Saturday Last hemodialysis on the Plan --Hemodialysis today and also planned for tomorrow --will monitor for anemia, nutrition, bone disease, blood pressure control, -- monitor access adequacy, and complications --Avoid IVF administration --Continue Sensipar and renvela --Will consult case management to assist with dialysis outpatient --IR consulted to replace permacath as was accidently pulled on and flow is not adequate for dialysis. --renal panel in AM --
[2018-06-04 16:11] LABS: Hemoglobin A1c 5.2 % (4.3-6.0)
[2018-06-05 07:34] LABS: Baso # (Auto) 0.1 th/mm3 (0.0-0.2); Baso % (Auto) 1.2 % (0.0-2.0); Eos # (Auto) 0.2 th/mm3 (0.0-0.4); Hematocrit 32.6 % (35.0-46.0); Hemoglobin 11.3 gm/dL (11.6-15.3); Lymph # (Auto) 1.7 th/mm3 (1.0-4.8); Lymph % (Auto) 22.1 % (9.0-44.0); Mean Corpuscular HGB Conc 34.6 % (32.0-36.0); Mean Corpuscular Hemoglobin 31.1 pg (27.0-34.0); Mean Corpuscular Volume 89.9 fL (80.0-100.0); Mean Platelet Volume 10.4 fL (7.0-11.0); Mono # (Auto) 0.4 th/mm3 (0.0-0.9); Neut # (Auto) 5.3 th/mm3 (1.8-7.7); Neut % (Auto) 68.7 % (16.0-70.0); Platelet Count 128 th/mm3 (150-450); Red Blood Count 3.63 mil/mm3 (4.00-5.30); Red Cell Distribution Width 14.5 % (11.6-17.2); White Blood Count 7.7 th/mm3 (4.0-11.0)
[2018-06-05] MEDS ORDERED: Vancomycin Inj 1 GM/200 ML PIGGYBACK IV.SIG SCH (08:00)
[2018-06-05 08:08] LABS: Alanine Aminotransferase 41 U/L (10-53); Albumin 2.7 g/dL (3.4-5.0); Alkaline Phosphatase 65 U/L (45-117); Anion Gap 10 meq/L (5-15); Aspartate Aminotransferase 31 U/L (15-37); Blood Urea Nitrogen 35 mg/dL (7-18); Calcium 8.4 mg/dL (8.5-10.1); Carbon Dioxide 28.1 meq/L (21.0-32.0); Chloride 102 meq/L (98-107); Glomerular Filtration Rate 12 mL/min (>89); Glucose,Random 77 mg/dL (74-106); Magnesium 1.9 mg/dL (1.5-2.5); Phosphorus 4.1 mg/dL (2.5-4.9); Potassium 3.9 meq/L (3.5-5.1); Sodium 140 meq/L (136-145); Total Protein 5.9 g/dL (6.4-8.2)
[2018-06-05] MEDS ORDERED: *Heparin 10,000 UNITS/10 ML Vial Periprocedural ONLY ONE (10:30)
[2018-06-05] MEDS ORDERED: Lidocaine 1%/Epinephrine 1:100,000 Inj 30 ML Vial ONE (10:31)
[2018-06-05] MEDS ORDERED: fentaNYL Citrate Inj 250 MCG/5 ML Ampul ONE (10:33)
[2018-06-05] MEDS ORDERED: ceFAZolin 2 GM Premix Inj 2 GM/50 ML PIGGYBACK IV.SIG ONE (10:33)
[2018-06-05] MEDS ORDERED: ceFAZolin 2 GM Premix Inj 2 GM/100 ML BAG IV.SIG SCH (11:00)
[2018-06-05] MEDS ORDERED: Vancomycin Inj 1,000 MG in Sodium Chlor 0.9% Inj 250 ML IV.SIG SCH (11:00)
--- NOTE | 2018-06-05 11:22 | P.PNNP ---
Subjective Interval history: Patient with family at bedside. Shortness of breath, nausea, and vomiting improving. Physical Exam Vital signs: Vital Signs 06/04/18 12:15 06/04/18 18:59 06/04/18 20:00 Temperature 98.3 F Pulse Rate 79 81 92 H Respiratory Rate 18 Blood Pressure 138/90 Pulse Oximetry 98 06/05/18 00:00 06/05/18 06:00 06/05/18 08:00 Temperature 97.9 F 98.6 F 98.0 F Pulse Rate 84 83 88 Respiratory Rate 20 18 17 Blood Pressure 134/91 H 107/62 112/65 Pulse Oximetry 100 97 99 Intake & Output 06/04/18 06/05/18 06/05/18 18:59 06:59 18:59 Output Total 3000 / 3000 Balance -3000 / -3000 Output: Hemodialysis Amount 3000 / 3000 Narrative: GENERAL: NAD, A&Ox3 HEAD: Normocephalic. Atraumatic NECK: Supple, trachea midline. No lymphadenopathy. CARDIOVASCULAR: Regular rate and rhythm without murmurs, gallops, or rubs. RESPIRATORY: Breath sounds equal bilaterally. No accessory muscle use. Bilateral ankles at bases. Right-sided dialysis catheter and AICD in place GASTROINTESTINAL: Abdomen soft, non-tender, nondistended. MUSCULOSKELETAL: No cyanosis. Peripheral edema is present SKIN: Warm and dry. Assessment and Plan - Assessment (1) Renal failure Code(s): N19 - Unspecified kidney failure Status: Acute Plan: \ End stage renal disease on HD with normally scheduled days on Saturday, Saturday , Saturday Last hemodialysis on the Plan --will monitor for anemia, nutrition, bone disease, blood pressure control, -- monitor access adequacy, and complications --Avoid IVF administration --Continue Sensipar and renvela --Case management working on outpatient dialysis --hemodialysis yesterday, had difficulty with flow with permacath but 3 liters of fluid removed. --IR to replace permacath today with hemodialysis after.
[2018-06-05 12:00] VITALS: TEMP 98.5
[2018-06-05 13:58] VITALS: BP 158/97; PULSE 69; RESP 16; O2SAT 96
--- NOTE | 2018-06-05 14:28 | P.PNIM ---
Subjective Interval history: Mrs. Jones is a 28 year old female. She has a past history of cardiomyopathy related to . Subsequently she developed congestive heart failure which led to end-stage renal disease. She has a pacemaker/AICD due to her degree of congestive heart failure and risk for arrhythmias. Currently she has moved back to [facility]. She was living in a different city([place], [place]) for a while and had established dialysis there. However she HAS MOVED back to [place]. She has not been able to obtain dialysis and missed her last 2 treatments. She complains of peripheral edema and shortness of breath. Imaging shows pulmonary edema. No other complaints. Nausea and vomiting have been present. No fevers. 06-04 WILL NEED TO BE SET UP FOR OUTPATIENT HD CONSULT NEPHROLOGY 06-05 HAD HD YESTERDAY HAD RIGHT SIDE PERMACATH CHANGED OUT BY IR HAVING HD TODAY WANTS PAIN MEDS AT DC HAS DRUG SEEKING BEHAVIOR- WAS ON NO PAIN AT HOME-- NO GOOD REASON FOR PAIN MEDS IF SET UP AT HD DC TO HOME TODAY IF SET UP FOR HD E-FORSCE VIEWED NO RECENT RX SINCE DEC 05, 2017 WILL GIVE ULTRAM 10 TABS AT DC Physical Exam Vital signs: Vital Signs 06/04/18 18:59 06/04/18 20:00 06/05/18 00:00 Temperature 98.3 F 97.9 F Pulse Rate 81 92 H 84 Respiratory Rate 18 20 Blood Pressure 138/90 134/91 H Pulse Oximetry 98 100 06/05/18 06:00 06/05/18 08:00 06/05/18 11:51 Temperature 98.6 F 98.0 F 98.5 F Pulse Rate 83 88 82 Respiratory Rate 18 17 20 Blood Pressure 107/62 112/65 143/81 H Pulse Oximetry 97 99 95 06/05/18 12:00 Temperature Pulse Rate 69 Respiratory Rate 16 Blood Pressure 158/97 H Pulse Oximetry 96 Intake & Output 06/04/18 06/05/18 06/05/18 18:59 06:59 18:59 Intake Total 50 / 50 Output Total 3000 / 3000 Balance -3000 / -3000 50 / 50 Intake: IV 50 / 50 Ancef 2 GM Premix Inj 2 gm In 50 / 50 50 ml @ 0 mls/hr IV.SIG .STK- [facility] Rx#:[id number] Output: Hemodialysis Amount 3000 / 3000 Narrative: GENERAL: NAD, A&Ox3 HEAD: Normocephalic. Atraumatic NECK: Supple, trachea midline. No lymphadenopathy. CARDIOVASCULAR: Regular rate and rhythm without murmurs, gallops, or rubs. RESPIRATORY: Breath sounds equal bilaterally. No accessory muscle use. Bilateral ankles at bases. Right-sided dialysis catheter and AICD in place GASTROINTESTINAL: Abdomen soft, non-tender, nondistended. MUSCULOSKELETAL: No cyanosis. Peripheral edema is present SKIN: Warm and dry. Results - Labs CBC & Chem 7: 06/05/18 06:25 06/05/18 06:25 Laboratory Results - last 24 hr 06/04/18 06/04/18 06/04/18 12:26 13:25 13:25 WBC RBC Hgb Hct MCV MCH MCHC RDW Plt Count MPV Neut % (Auto) Lymph % (Auto) [place] % (Auto) Eos % (Auto) Baso % (Auto) Neut # (Auto) Lymph # (Auto) [place] # (Auto) Eos # (Auto) Baso # (Auto) WBC Differential Differential Comment Sodium Potassium Chloride Carbon Dioxide Anion Gap BUN Creatinine Estimated GFR POC Glucose Random Glucose Hemoglobin A1c 5.2 Calcium Phosphorus Magnesium Total Bilirubin AST ALT Alkaline Phosphatase Total Protein Albumin TSH Hepatitis A IgM Ab Nonreactive Nonreactive Hep Bs Antigen Nonreactive Hep B Core IgM Ab Nonreactive Nonreactive Hep C IgG Ab Reactive H Reactive H 06/05/18 06/05/18 06/05/18 06:25 06:25 08:22 WBC 7.7 RBC 3.63 L Hgb 11.3 L Hct 32.6 L MCV 89.9 MCH 31.1 MCHC 34.6 RDW 14.5 Plt Count 128 L MPV 10.4 Neut % (Auto) 68.7 Lymph % (Auto) 22.1 [place] % (Auto) 5.0 Eos % (Auto) 3.0 Baso % (Auto) 1.2 Neut # (Auto) 5.3 Lymph # (Auto) 1.7 [place] # (Auto) 0.4 Eos # (Auto) 0.2 Baso # (Auto) 0.1 WBC Differential . Differential Comment Auto diff final Sodium 140 Potassium 3.9 Chloride 102 Carbon Dioxide 28.1 Anion Gap 10 BUN 35 H Creatinine 4.22 H Estimated GFR 12 L POC Glucose 101 Random Glucose 77 Hemoglobin A1c Calcium 8.4 L Phosphorus 4.1 Magnesium 1.9 Total Bilirubin 0.4 AST 31 ALT 41 Alkaline Phosphatase 65 Total Protein 5.9 L D Albumin 2.7 L TSH 1.740 Hepatitis A IgM Ab Hep Bs Antigen Hep B Core IgM Ab Hep C IgG Ab 06/05/18 13:57 WBC RBC Hgb Hct MCV MCH MCHC RDW Plt Count MPV Neut % (Auto) Lymph % (Auto) [place] % (Auto) Eos % (Auto) Baso % (Auto) Neut # (Auto) Lymph # (Auto) [place] # (Auto) Eos # (Auto) Baso # (Auto) WBC Differential Differential Comment Sodium Potassium Chloride Carbon Dioxide Anion Gap BUN Creatinine Estimated GFR POC Glucose 211 H Random Glucose Hemoglobin A1c Calcium Phosphorus Magnesium Total Bilirubin AST ALT Alkaline Phosphatase Total Protein Albumin TSH Hepatitis A IgM Ab Hep Bs Antigen Hep B Core IgM Ab Hep C IgG Ab - Imaging Chest X-Ray 06/03/18 22:45 CONCLUSION: Cardiomegaly with increase in pulmonary vascularity. Chest X-Ray 06/04/18 00:00 CONCLUSION: 1. No significant interval change. 2. Cardiomegaly with slight positive fluid balance. - Procedures RIGHT SIDED HD CATHETER EXCHANGE Assessment and Plan - Assessment (1) Renal failure Code(s): N19 - Unspecified kidney failure Status: Acute (2) Renal failure (ARF), acute on chronic Code(s): N17.9 - Acute kidney failure, unspecified; N18.9 - Chronic kidney disease, unspecified Status: Acute (3) ESRD (end stage renal disease) Code(s): N18.6 - End stage renal disease Status: Acute (4) Missed dialysis Status: Acute (5) Pulmonary edema Code(s): J81.1 - Chronic pulmonary edema Status: Acute (6) Peripheral edema Code(s): R60.9 - Edema, unspecified Status: Acute - Plan 28-year-old female admitted secondary to acute on chronic renal failure related to missed dialysis, with pulmonary edema peripheral edema. Acute kidney failure on chronic kidney disease ESRD Pulmonary Edema Peripheral Edema Missed Dialysis Consult nephrology avoid nephrotoxins Follow urine output Hemodialysis needed Establishment of outpatient dialysis needed Etiology of her renal disease could strictly be related to cardiorenal syndrome but may also represent nephrotic syndrome or a combination. Noncompliance with medication regimen Will need to be set up for hemodialysis as an outpatient BY case management and nephrology Chronic cardiomyopathy, Continue diuresis Continue Coreg Continue Entresto Defibrillator present Diabetes mellitus type 2 Diet controlled Follow blood sugars Continue diabetic diet Hypertension Continue Coreg Follow blood pressures DVT prophylaxis SCDs Discharge Planning Needs to re-establish Outpatient Dialysis locally prior to discharge DRUG SEEKING BEHAVIOR ASKED FOR MEDS- EVEN THOUGH NOT ON ANY AT HOME DC HOME IF HD SET UP OUTPT [facility] VIEWED NO RECENT RX SINCE DEC 05, 2017 WILL GIVE ULTRAM 10 TABS AT DC Code Status: FULL CODE Discussed Condition With: RN AND PT AND CM Discharge Planning: When she is set up for outpatient hemodialysis and cleared by nephrology for discharge (5) Pulmonary edema Qualifiers: Chronicity: acute Qualified Code(s): J81.0 - Acute pulmonary edema
--- NOTE | 2018-06-05 14:43 | P.DS ---
Date of admission: 06/04/18 01:12 Primary care physician: No Primary Care Physician Attending physician on discharge: Westley Vergara Anticipated date of discharge: 06/05/18 Brief History from admission: Mrs. Jonse is a 28 year old female. She has a past history of cardiomyopathy related to . Subsequently she developed congestive heart failure which led to end-stage renal disease. She has a pacemaker due to her degree of congestive heart failure and risk for arrhythmias. Currently she has moved back to [facility]. She was living in a different city for a while and had established dialysis there. However she is moving back to [place]. She has not been able to obtain dialysis and missed her last 2 treatments. She complains of peripheral edema and shortness of breath. Imaging shows pulmonary edema. No other complaints. Nausea and vomiting have been present. No fevers. DS: Diagnosis - Discharge Diagnosis (1) Renal failure Status: Chronic (2) Renal failure (ARF), acute on chronic Status: Chronic (3) ESRD (end stage renal disease) Status: Chronic (4) Missed dialysis Status: Acute (5) Pulmonary edema Status: Acute (6) Peripheral edema Status: Acute DS: Medications - Discharge Medications Prescriptions: bumetanide 2 mg PO DAILY #30 tab carvedilol [Coreg] 6.25 mg PO BID #60 tab cinacalcet [Sensipar] 30 mg PO DAILY #30 tab sevelamer carbonate [Renvela] 1,600 mg PO TID #180 tab tramadol [Ultram] 50 mg PO Q6H PRN #10 tab PRN Reason: Pain DS: Summary Hospital Course: Mrs. Jones is a 28 year old female. She has a past history of cardiomyopathy related to . Subsequently she developed congestive heart failure which led to end-stage renal disease. She has a pacemaker/AICD due to her degree of congestive heart failure and risk for arrhythmias. Currently she has moved back to [facility]. She was living in a different city([place], [place]) for a while and had established dialysis there. However she HAS MOVED back to [place]. She has not been able to obtain dialysis and missed her last 2 treatments. She complains of peripheral edema and shortness of breath. Imaging shows pulmonary edema. No other complaints. Nausea and vomiting have been present. No fevers. 8-15 WILL NEED TO BE SET UP FOR OUTPATIENT HD CONSULT NEPHROLOGY 8-16 HAD HD YESTERDAY HAD RIGHT SIDE PERMACATH CHANGED OUT BY IR HAVING HD TODAY WANTS PAIN MEDS AT DC HAS DRUG SEEKING BEHAVIOR- WAS ON NO PAIN AT HOME-- NO GOOD REASON FOR PAIN MEDS IF SET UP AT HD DC TO HOME TODAY IF SET UP FOR HD E-FORSCE VIEWED NO RECENT RX SINCE DEC 05, 2017 WILL GIVE ULTRAM 10 TABS AT DC - Time Spent with Patient Total time spent providing and/or coordinating discharge services: Greater than 30 minutes - Quality: VTE Deep Vein Thrombosis/Pulmonary Embolism Present on Admission: No Exam Vital signs: Vital Signs 06/04/18 18:59 06/04/18 20:00 06/05/18 00:00 Temperature 98.3 F 97.9 F Pulse Rate 81 92 H 84 Respiratory Rate 18 20 Blood Pressure 138/90 134/91 H Pulse Oximetry 98 100 06/05/18 06:00 06/05/18 08:00 06/05/18 11:51 Temperature 98.6 F 98.0 F 98.5 F Pulse Rate 83 88 82 Respiratory Rate 18 17 20 Blood Pressure 107/62 112/65 143/81 H Pulse Oximetry 97 99 95 06/05/18 12:00 Temperature Pulse Rate 69 Respiratory Rate 16 Blood Pressure 158/97 H Pulse Oximetry 96 Intake & Output 06/04/18 06/05/18 06/05/18 18:59 06:59 18:59 Intake Total 50 / 50 Output Total 3000 / 3000 Balance -3000 / -3000 50 / 50 Intake: IV 50 / 50 Ancef 2 GM Premix Inj 2 gm In 50 / 50 50 ml @ 0 mls/hr IV.SIG .STK- MED ONE Rx#:[id number] Output: Hemodialysis Amount 3000 / 3000 Narrative: GENERAL: NAD, A&Ox3 HEAD: Normocephalic. Atraumatic NECK: Supple, trachea midline. No lymphadenopathy. CARDIOVASCULAR: Regular rate and rhythm without murmurs, gallops, or rubs. RESPIRATORY: Breath sounds equal bilaterally. No accessory muscle use. Bilateral ankles at bases. Right-sided dialysis catheter and AICD in place GASTROINTESTINAL: Abdomen soft, non-tender, nondistended. MUSCULOSKELETAL: No cyanosis. Peripheral edema is present SKIN: Warm and dry. Results Procedures completed during hospitalization: RIGHT SIDED HD CATHETER EXCHANGE Completed studies during hospitalization: Laboratory Results WBC 7.7 th/mm3 (4.0-11.0) 06/05/18 06:25 RBC 3.63 mil/mm3 (4.00-5.30) L 06/05/18 06:25 Hgb 11.3 gm/dL (11.6-15.3) L 06/05/18 06:25 Hct 32.6 % (35.0-46.0) L 06/05/18 06:25 MCV 89.9 fL (80.0-100.0) 06/05/18 06:25 MCH 31.1 pg (27.0-34.0) 06/05/18 06:25 MCHC 34.6 % (32.0-36.0) 06/05/18 06:25 RDW 14.5 % (11.6-17.2) 06/05/18 06:25 Plt Count 128 th/mm3 (150-450) L 06/05/18 06:25 MPV 10.4 fL (7.0-11.0) 06/05/18 06:25 Neut % (Auto) 68.7 % (16.0-70.0) 06/05/18 06:25 Lymph % (Auto) 22.1 % (9.0-44.0) 06/05/18 06:25 [place] % (Auto) 5.0 % (0.0-8.0) 06/05/18 06:25 Eos % (Auto) 3.0 % (0.0-4.0) 06/05/18 06:25 Baso % (Auto) 1.2 % (0.0-2.0) 06/05/18 06:25 Neut # (Auto) 5.3 th/mm3 (1.8-7.7) 06/05/18 06:25 Lymph # (Auto) 1.7 th/mm3 (1.0-4.8) 06/05/18 06:25 [place] # (Auto) 0.4 th/mm3 (0.0-0.9) 06/05/18 06:25 Eos # (Auto) 0.2 th/mm3 (0.0-0.4) 06/05/18 06:25 Baso # (Auto) 0.1 th/mm3 (0.0-0.2) 06/05/18 06:25 WBC Differential . 06/05/18 06:25 Differential Comment Auto diff final 06/05/18 06:25 PT 10.7 sec (9.8-11.6) 06/03/18 23:01 INR 1.1 Ratio 06/03/18 23:01 APTT 24.2 sec (24.3-30.1) L 06/03/18 23:01 Sodium 140 meq/L (136-145) 06/05/18 06:25 Potassium 3.9 meq/L (3.5-5.1) 06/05/18 06:25 Chloride 102 meq/L (98-107) 06/05/18 06:25 Carbon Dioxide 28.1 meq/L (21.0-32.0) 06/05/18 06:25 Anion Gap 10 meq/L (5-15) 06/05/18 06:25 BUN 35 mg/dL (7-18) H 06/05/18 06:25 Creatinine 4.22 mg/dL (0.50-1.00) H 06/05/18 06:25 Estimated GFR 12 mL/min (>89) L 06/05/18 06:25 POC Glucose 211 mg/dl (68-110) H 06/05/18 13:57 Random Glucose 77 mg/dL (74-106) 06/05/18 06:25 Hemoglobin A1c 5.2 % (4.3-6.0) 06/04/18 13:25 Calcium 8.4 mg/dL (8.5-10.1) L 06/05/18 06:25 Phosphorus 4.1 mg/dL (2.5-4.9) 06/05/18 06:25 Magnesium 1.9 mg/dL (1.5-2.5) 06/05/18 06:25 Total Bilirubin 0.4 mg/dL (0.2-1.0) 06/05/18 06:25 AST 31 U/L (15-37) 06/05/18 06:25 ALT 41 U/L (10-53) 06/05/18 06:25 Alkaline Phosphatase 65 U/L (45-117) 06/05/18 06:25 B-Natriuretic Peptide 1734 pg/mL (0-100) H 06/03/18 23:01 Total Protein 5.9 g/dL (6.4-8.2) L D 06/05/18 06:25 Albumin 2.7 g/dL (3.4-5.0) L 06/05/18 06:25 Lipase 467 U/L (73-393) H 06/03/18 23:01 TSH 1.740 uIU/mL (0.358-3.740) 06/05/18 06:25 Free T4 0.94 ng/dL (0.76-1.46) 06/04/18 13:25 Hepatitis A IgM Ab Nonreactive (Nonreactive) 06/04/18 13:25 Hep Bs Antigen Nonreactive (Nonreactive) 06/04/18 13:25 Hep B Core IgM Ab Nonreactive (Nonreactive) 06/04/18 13:25 Hep C IgG Ab Reactive (Nonreactive) H 06/04/18 13:25 Impressions Chest X-Ray 06/04/18 00:00 CONCLUSION: 1. No significant interval change. 2. Cardiomegaly with slight positive fluid balance. Labs on day of discharge: Labs from last 24 hours 06/05/18 06/05/18 06/05/18 13:57 08:22 06:25 WBC RBC Hgb Hct MCV MCH MCHC RDW Plt Count MPV Neut % (Auto) Lymph % (Auto) [place] % (Auto) Eos % (Auto) Baso % (Auto) Neut # (Auto) Lymph # (Auto) [place] # (Auto) Eos # (Auto) Baso # (Auto) WBC Differential Differential Comment Sodium 140 Potassium 3.9 Chloride 102 Carbon Dioxide 28.1 Anion Gap 10 BUN 35 H Creatinine 4.22 H Estimated GFR 12 L POC Glucose 211 H 101 Random Glucose 77 Hemoglobin A1c Calcium 8.4 L Phosphorus 4.1 Magnesium 1.9 Total Bilirubin 0.4 AST 31 ALT 41 Alkaline Phosphatase 65 Total Protein 5.9 L D Albumin 2.7 L TSH 1.740 Hepatitis A IgM Ab Hep Bs Antigen Hep B Core IgM Ab Hep C IgG Ab 06/05/18 06/04/18 06/04/18 06:25 13:25 13:25 WBC 7.7 RBC 3.63 L Hgb 11.3 L Hct 32.6 L MCV 89.9 MCH 31.1 MCHC 34.6 RDW 14.5 Plt Count 128 L MPV 10.4 Neut % (Auto) 68.7 Lymph % (Auto) 22.1 Wayne % (Auto) 5.0 Eos % (Auto) 3.0 Baso % (Auto) 1.2 Neut # (Auto) 5.3 Lymph # (Auto) 1.7 Wayne # (Auto) 0.4 Eos # (Auto) 0.2 Baso # (Auto) 0.1 WBC Differential . Differential Comment Auto diff final Sodium Potassium Chloride Carbon Dioxide Anion Gap BUN Creatinine Estimated GFR POC Glucose Random Glucose Hemoglobin A1c 5.2 Calcium Phosphorus Magnesium Total Bilirubin AST ALT Alkaline Phosphatase Total Protein Albumin TSH Hepatitis A IgM Ab Nonreactive Hep Bs Antigen Nonreactive Hep B Core IgM Ab Nonreactive Hep C IgG Ab Reactive H - Impressions ITS Impressions Chest X-Ray 06/04/18 00:00 CONCLUSION: 1. No significant interval change. 2. Cardiomegaly with slight positive fluid balance. Discharge Plan - Discharge Disposition Patient Disposition: 01 Discharge Home - Discharge Condition Condition: Good - Discharge Order Discharge Orders: Discharge Order (Routine); Ordered 06/05/18 Ordered By: Westley Vergara - Discharge Details Anticipated Discharge Date: 06/05/18 Discharge Comment: DC TO HOME ONCE HD SET UP OUTPATIENT - Physicians Team Primary Care Provider: Primary Care Physici,No Attending Provider: Westley Vergara Other Providers: Alexsander Puentes MD
[2018-06-05] MEDS: Carvedilol 6.25 MG Tablet PO SCH (15:44)
[2018-06-05] MEDS: Insulin NovoLOG Aspart Correctional Sugar Inj SQ SCH ×2 (15:45→15:46)
--- NOTE | 2018-08-26 15:31 | IR ---
EXAM DATE: 06/05/2018 2:05 PM EDT AGE/SEX: 28 years / Female INDICATIONS: Patient presents with renal disease in need of dialysis catheter exchange. CLINICAL DATA: This is the patient's initial encounter. Patient reports that signs and symptoms have been present for 1 day and indicates a pain score of 8/10. MEDICAL/SURGICAL HISTORY: . Cardiomyopathy, delivery, Dialysis patient, End stage oliver l disease, Fistula, Pacemaker. . History of cholecystectomy, History of tubal ligation. COMPARISON: No prior exams available for comparison. FLUORO TIME (min): 0.20 IMAGE SERIES: 1 ACCESS SITE: Right internal jugular vein SEDATION TIME (min): 30 MEDICATION(S): 4,600 UNITS Heparin IV 3.5 MG midazolam (Versed) IV 175 MCG fentanyl (Sublimaze) IV Vancomycin within 2 hrs of procedure, Ancef (or alternative) within 1 hr of procedure. DEVICE(S): Internal jugular 15fr 23cm [place] . . PROCEDURE: 1. Fluoroscopically guided central venous catheter exchange. The risks, benefits and alternatives to the procedure were explained and verbal and written consent w as obtained. The site was prepped in sterile fashion. Full sterile technique was used, including ca p, mask, sterile gloves and gown and a large sterile sheet. Hand hygiene and 2% chlorhexidine prep w as utilized per protocol for cutaneous antisepsis with appropriate dry time for site. The skin and s ubcutaneous tissues were infiltrated with local anesthetic solution. With fluoroscopic guidance a previously placed central venous catheter was exchanged for the prescrib ed catheter as above. Post procedure image demonstrates satisfactory position of the tube. The cath eter was sutured in place. CONCLUSION: 1. Uncomplicated venous catheter change as above. Electronically signed by: Vinay Waters MD 08/26/2018 3:29 PM EST
== END 2018-06-05 18:50 | disposition home or self-care (01) ==
LOC: NEPC 20:48 → NEDA 06-04 01:12 → NEPHCDU 06-04 02:15 → H7ONC 06-05 15:14
PROVIDERS: ADMIT Hospitalist; ATTEND Hospitalist

== ENCOUNTER 2018-08-06 10:39 | Observation (INO) ==
[2018-08-06] MEDS ORDERED: MethylPREDNISolone Sod Succinate Inj 125 MG/2 ML Vial IV.PUSH ONE (11:27)
[2018-08-06 12:26] LABS: Chloride 102 meq/L (98-107); Potassium 5.2 meq/L (3.5-5.1); Sodium 135 meq/L (136-145)
--- NOTE | 2018-08-06 12:26 | XR ---
EXAM DATE: 08/06/2018 11:27 AM EDT AGE/SEX: 28 years / Female INDICATIONS: Chest pain and shortness of breath. CLINICAL DATA: This is the patient's initial encounter. Patient reports that signs and symptoms have been present for 1 day and indicates a pain score of 5/10. MEDICAL/SURGICAL HISTORY: Renal disease. Cardiomyopathy. section. Pacemaker. Port. COMPARISON: [facility], CHEST 2V PA&LAT, 08/03/2018. . FINDINGS: A single AP view of the chest demonstrates the lungs to be symmetrically aerated without evidence of mass, infiltrate or effusion. The cardiomediastinal contours are unremarkable. Osseous structures a re intact. Pacer/ICD device from a left subclavian transvenous approach noted. Dialysis catheter fro m a right subclavian approach again seen. CONCLUSION: Clear lungs. Electronically signed by: Michael Dick MD 08/06/2018 12:25 PM EDT
[2018-08-06 12:31] LABS: Albumin 3.5 g/dL (3.4-5.0); Anion Gap 11 meq/L (5-15); Blood Urea Nitrogen 35 mg/dL (7-18); Calcium 8.6 mg/dL (8.5-10.1); Carbon Dioxide 22.5 meq/L (21.0-32.0); Glucose,Random 101 mg/dL (74-106)
--- NOTE | 2018-08-06 12:32 | US ---
EXAM DATE: 08/06/2018 11:27 AM EDT AGE/SEX: 28 years / Female INDICATIONS: Left pelvic pain. CLINICAL DATA: This is the patient's initial encounter. Patient reports that signs and symptoms have been present for 2 weeks and indicates a pain score of 8/10. MEDICAL/SURGICAL HISTORY: . Kidney failure. Dialysis. . Port placement. Pacemaker. Cholecys tectomy. Tubal ligation. COMPARISON: [facility], US PELVIC COMPLETE, 07/07/2018. . MEASUREMENTS: Uterus:__6.5 x 4.6 x 3.4 cm Endometrial Stripe:__9 mm Right Ovary:__ 3.9 x 3.1 x 4.4 cm Left Ovary:__ 4.9 x 2.5 x 2.4 cm FINDINGS: Uterus: The myometrium has homogeneous echotexture without mass. Endometrial Stripe: The endometrial stripe displays homogeneous echotexture. Right Ovary: 2.4 x 2.3 x 2.5 cm simple cyst. Left Ovary: Ovary contains no mass. Follicles are present. Fluid: No free fluid. Other: None. CONCLUSION: 1. Simple cyst right ovary measuring 2.5 cm. Electronically signed by: Michael Dick MD 08/06/2018 12:31 PM EDT
[2018-08-06 12:34] LABS: Alanine Aminotransferase 265 U/L (10-53); Aspartate Aminotransferase 227 U/L (15-37); Glomerular Filtration Rate 9 mL/min (>89)
[2018-08-06 12:36] LABS: Total Protein 7.5 g/dL (6.4-8.2)
[2018-08-06 12:37] LABS: Alkaline Phosphatase 110 U/L (45-117)
[2018-08-06 12:39] LABS: Creatine Kinase 28 U/L (26-192); Troponin I 0.03 ng/mL (0.02-0.05)
[2018-08-06 12:49] LABS: Baso # (Auto) 0.3 th/mm3 (0.0-0.2); Baso % (Auto) 3.8 % (0.0-2.0); Eos # (Auto) 0.2 th/mm3 (0.0-0.4); Eos % (Auto) 2.4 % (0.0-4.0); Hematocrit 43.7 % (35.0-46.0); Hemoglobin 14.3 gm/dL (11.6-15.3); Lymph # (Auto) 1.9 th/mm3 (1.0-4.8); Lymph % (Auto) 22.3 % (9.0-44.0); Mean Corpuscular HGB Conc 32.7 % (32.0-36.0); Mean Corpuscular Hemoglobin 29.8 pg (27.0-34.0); Mean Corpuscular Volume 91.3 fL (80.0-100.0); Mean Platelet Volume 9.7 fL (7.0-11.0); Mono # (Auto) 0.4 th/mm3 (0.0-0.9); Mono % (Auto) 4.8 % (0.0-8.0); Neut # (Auto) 5.8 th/mm3 (1.8-7.7); Neut % (Auto) 66.7 % (16.0-70.0); Platelet Count 149 th/mm3 (150-450); Red Blood Count 4.78 mil/mm3 (4.00-5.30); Red Cell Distribution Width 13.3 % (11.6-17.2); White Blood Count 8.6 th/mm3 (4.0-11.0)
--- NOTE | 2018-08-06 13:53 | ED ---
HPI General Chief complaint: Abdominal Pain Stated complaint: Abd pain/cough/chest pressure x last night Time Seen by Provider: 08/06/18 11:00 Source: patient Mode of arrival: ambulatory Limitations: no limitations History of Present Illness HPI narrative: Patient is a 28-year-old female on dialysis Saturday, Saturday, Saturday, as well as cardiomyopathy. She comes in today complaining of chest pain and abdominal pain. She has been here multiple times for this abdominal pain and says it has not changed. She does have history of ovarian cysts. She says the chest pain started yesterday and is in the middle of her chest. She says it is a stabbing pain that comes and goes. She does report a cough for a few days. She is supposed to go to dialysis today, but has not gone yet. She denies fever or chills. She has not taken anything for her symptoms. She has had nausea and vomiting. Severity is moderate. Related Data Home Medications Medication Instructions Recorded Confirmed bumetanide 4 mg PO DAILY 08/03/18 08/06/18 hydrocodone-acetaminophen 1 tab PO Q4-6H PRN 08/03/18 08/06/18 sacubitril-valsartan [Entresto] 1 tab PO BID 08/03/18 08/06/18 Calcium Sulfate 1 tab PO DAILY 08/06/18 Previous Rx's Medication Instructions Recorded carvedilol [Coreg] 6.25 mg PO BID #60 tab 06/05/18 Allergies Allergy/AdvReac Type Severity Reaction Status Date / Time niacin Allergy Intermediate Shakiness Verified 08/03/18 18:34 adhesive tape AdvReac Intermediate Blister Verified 08/06/18 10:46 ketorolac AdvReac Mild SHAKING Verified 08/03/18 18:34 Review of Systems ROS: all other systems reviewed are negative Constitutional Denies chills and Denies fever(s) ENT Denies dizziness Cardiovascular Reports chest pain Respiratory Reports cough Gastrointestinal Reports abdominal pain, Reports nausea and Reports vomiting Musculoskeletal Denies myalgias and Denies arthralgias Integumentary/Breasts Denies sores and Denies wounds Neurologic Denies focal weakness and Denies numbness [facility] Medical History Medical History Cardiomyopathy (Acute) delivery delivered (Acute) Dialysis patient (Acute) End stage renal disease (Acute) Fistula (Acute) Surgical History Surgical History History of cholecystectomy (Acute) History of tubal ligation (Acute) Family History Family History Mother Hypertension Rheumatoid arthritis Father Pancreas hemorrhage Social History Social History Substance History: No History of Abuse Second Hand Smoke Exposure: Yes Smoking Status: Former smoker Tobacco Type: Cigarettes How Often Do You Have a Drink Containing Alcohol: Never Recent Travel in [facility] within the Last 8 Weeks: No Recent Out of Country Travel within the Last 8 Weeks: No Immunization History Tetanus Immunization: >5 Years Exam Narrative Exam Narrative: GENERAL: Awake and alert, no acute distress. SKIN: Focused skin assessment warm/dry. No wounds or signs of infection. HEAD: Atraumatic. Normocephalic. EYES: Pupils equal and round. No scleral icterus. ENT: Mucous membranes pink and moist. NECK: Trachea midline. No JVD. CARDIOVASCULAR: Regular rate and rhythm. No murmur appreciated. RESPIRATORY: No accessory muscle use. Wheezing to the left lung. Breath sounds equal bilaterally. GASTROINTESTINAL: Abdomen soft, nondistended. Mild tenderness to palpation of the left lower quadrant. No rebound or guarding. MUSCULOSKELETAL: No obvious deformities. No clubbing. No cyanosis. No edema. NEUROLOGICAL: Awake and alert. No obvious cranial nerve deficits. Motor grossly within normal limits. Normal speech. PSYCHIATRIC: Appropriate mood and affect; insight and judgment normal. Course Initial Documented Vital Signs Temperature 99 F 08/06/18 10:41 Pulse Rate 91 H 08/06/18 10:41 Respiratory Rate 18 08/06/18 10:41 Blood Pressure 133/82 08/06/18 10:41 Pulse Oximetry 97 08/06/18 10:41 Last Documented Vital Signs Temperature 99 F 08/06/18 10:41 Pulse Rate 89 08/06/18 11:39 Respiratory Rate 18 08/06/18 14:38 Blood Pressure 133/82 08/06/18 10:41 Pulse Oximetry 98 08/06/18 12:27 Medical Decision Making MDM Narrative Medical decision making narrative: Patient is a 28-year-old female who comes in complaining of chest pain and abdominal pain. Exam shows wheezing to the left lung. IV established, labs sent. Patient connected to the monitor tech. Labs show no acute abnormalities. Chest x-ray shows no evidence of pneumonia. Ultrasound performed shows a left-sided ovarian cyst, similar to previous. Patient given pain medicine. Given Zofran and Compazine. She was given 1 DuoNeb with some improvement of her cough and shortness of breath. She continues to have the chest pain. Based on her history, believe she would benefit from observation. Medical Screen Exam Complete: Yes Emergency Medical Condition: Yes Differential Diagnosis Differential Diagnosis: ACS versus pneumonia versus COPD versus CHF Medical Records Medical records reviewed: Yes I reviewed the patient's medical records. Lab Data Lab results reviewed: Yes I reviewed the patient's lab results. Result diagrams: 08/06/18 12:41 08/06/18 12:05 Lab Results 08/06/18 08/06/18 08/06/18 Range/Units 12:05 12:41 13:25 CBC w Diff Auto diff final WBC 8.6 (4.0-11.0) th/mm3 RBC 4.78 (4.00-5.30) mil/mm3 Hgb 14.3 (11.6-15.3) gm/dL Hct 43.7 (35.0-46.0) % MCV 91.3 (80.0-100.0) fL MCH 29.8 (27.0-34.0) pg MCHC 32.7 (32.0-36.0) % RDW 13.3 (11.6-17.2) % Plt Count 149 L (150-450) th/mm3 MPV 9.7 (7.0-11.0) fL Neut % (Auto) 66.7 (16.0-70.0) % Lymph % (Auto) 22.3 (9.0-44.0) % [place] % (Auto) 4.8 (0.0-8.0) % Eos % (Auto) 2.4 (0.0-4.0) % Baso % (Auto) 3.8 H (0.0-2.0) % Neut # (Auto) 5.8 (1.8-7.7) th/mm3 Lymph # (Auto) 1.9 (1.0-4.8) th/mm3 [place] # (Auto) 0.4 (0.0-0.9) th/mm3 Eos # (Auto) 0.2 (0.0-0.4) th/mm3 Baso # (Auto) 0.3 H (0.0-0.2) th/mm3 WBC Differential . Differential Comment . PT 10.7 (9.8-11.6) sec INR 1.1 Ratio APTT 25.3 (24.3-30.1) sec Sodium 135 L (136-145) meq/L Potassium 5.2 H (3.5-5.1) meq/L Chloride 102 (98-107) meq/L Carbon Dioxide 22.5 (21.0-32.0) meq/L Anion Gap 11 (5-15) meq/L BUN 35 H (7-18) mg/dL Creatinine 5.60 H (0.50-1.00) mg/dL Estimated GFR 9 L (>89) mL/min Random Glucose 101 (74-106) mg/dL Calcium 8.6 (8.5-10.1) mg/dL Total Bilirubin 0.5 (0.2-1.0) mg/dL AST 227 H (15-37) U/L ALT 265 H (10-53) U/L Alkaline Phosphatase 110 (45-117) U/L Total Creatine Kinase 28 (26-192) U/L Troponin I 0.03 (0.02-0.05) ng/mL Total Protein 7.5 (6.4-8.2) g/dL Albumin 3.5 (3.4-5.0) g/dL Imaging Data Radiologist's impression: Chest X-Ray 08/06/18 11:27 CONCLUSION: Clear lungs. Pelvis Ultrasound 08/06/18 11:27 CONCLUSION: 1. Simple cyst right ovary measuring 2.5 cm. ECG Data EKG Prior to Arrival: No Attestation: I personally reviewed and interpreted this ECG as follows: Interpretation: ECG shows sinus rhythm at a rate of 70, no ST elevation or depression, T wave inversions in lead I, aVL, V5 and V6. Discharge Plan Discharge Disposition Patient Disposition: 30 Still Patient Discharge Condition Condition: Stable Discharge Details Diagnosis: ESRD (end stage renal disease), Chest pain Physicians Team ED Provider: Deena Burnette Primary Care Provider: Primary Care Imani Carmen Attending Provider: Gael La Status ED Status: Admitted Observation Patient
[2018-08-06 14:14] LABS: Activated Partial Thrombo Time 25.3 sec (24.3-30.1); INR 1.1 Ratio; Prothrombin Time 10.7 sec (9.8-11.6)
[2018-08-06] MEDS ORDERED: Acetaminophen 500 MG Tablet PO PRN (14:42)
--- NOTE | 2018-08-06 14:52 | P.HP ---
History of Present Illness Primary Care Physician: No Primary Care Physician Chief Complaint: Chest pain History of Present Illness: This is a pleasant 28-year-old female patient with a known medical history of end-stage renal disease as well as cardiomyopathy with the ejection fraction of 15% and AICD placed, who presented to the ED with complaints of abdominal pain as well as chest pain. Patient states that she has had report of 2 weeks left-sided chest pressure that radiated to her left arm, usually last a couple minutes and is relieved on its own. She denies ever having this type of pain before. She does also complain of left lower abdominal pain and diarrhea times 2 days. She denies any recent antibiotic use. She denies having any black or bloody stools. Denies any running on urination. Patient denies any fevers, chills, cough, shortness of breath, headache, nausea, vomiting or dysuria. Patient currently has end-stage renal disease, has a left upper arm AV fistula and has dialysis Saturday, Saturday and Saturday. Follows with Dr. Allen, last dialysis treatment was on Saturday. Patient presents with creatinine of 5.6, GFR 9, potassium 5.2. Last stress test was several years ago which was reportedly negative. She does not follow with a hat measurer. She has had an echocardiogram within the last year. - Diagnosis (1) Chest pain Review of Systems All other systems reviewed negative except as stated in HPI PMFSH - History History Provided By: Patient - Medical History Medical History: Medical History (Last Reviewed 08/06/18 @ 14:51 by Deena Pettit) Cardiomyopathy delivery delivered Dialysis patient End stage renal disease Fistula - Surgical History Surgical History: Surgical History (Last Reviewed 08/06/18 @ 14:51 by Deena Pettit) History of cholecystectomy History of tubal ligation - Family History Family History: Family History (Last Reviewed 08/06/18 @ 14:51 by Deena Pettit) Mother Hypertension Rheumatoid arthritis Father Pancreas hemorrhage - Social History I have reviewed the patient's Social History: Yes - Tobacco History Second Hand Smoke Exposure: Yes Smoking Status: Former smoker Tobacco Type: Cigarettes - Alcohol History How Often Do You Have a Drink Containing Alcohol: Never - Substance Use History Substance History: No History of Abuse - Travel History Recent Travel in the [place] Within the Last 8 Weeks: No Recent Travel Out of the Country Within the Last 8 Weeks: No - Immunization History Tetanus Immunization: >5 Years Medications and Allergies Active Medications: Active Medications Acetaminophen (Tylenol) 500 mg PO Q4H PRN PRN Reason: HEADACHE Hydrocodone Bitart/Acetaminophen ([place] 10/325) 1 tab PO Q6H PRN PRN Reason: Pain 3-10 Bumetanide (Bumex) 4 mg PO DAILY DEJA Sacubitril/Valsartan (Entresto 49 Mg/51 Mg) 1 tab PO BID DEJA Sodium Chloride (Ns Flush) 2 ml IV.FLUSH BID DEJA Sodium Chloride (Ns Flush) 2 ml IV.FLUSH PRN PRN PRN Reason: FLUSH AFTER USING IV ACCESS Allergies Allergy/AdvReac Type Severity Reaction Status Date / Time niacin Allergy Intermediate Shakiness Verified 08/03/18 18:34 adhesive tape AdvReac Intermediate Blister Verified 08/06/18 10:46 ketorolac AdvReac Mild SHAKING Verified 08/03/18 18:34 Home Medications Medication Instructions Recorded Confirmed Type bumetanide 4 mg PO DAILY 08/03/18 08/06/18 History hydrocodone-acetaminophen 1 tab PO Q4-6H PRN 08/03/18 08/06/18 History sacubitril-valsartan [Entresto] 1 tab PO BID 08/03/18 08/06/18 History Calcium Sulfate 1 tab PO DAILY 08/06/18 History Exam Vital signs: Vital Signs 08/06/18 10:41 08/06/18 11:39 08/06/18 12:27 Temperature 99 F Pulse Rate 91 H 89 Respiratory Rate 18 12 Blood Pressure 133/82 Pulse Oximetry 97 98 08/06/18 14:38 08/06/18 14:49 Temperature Pulse Rate 88 Respiratory Rate 18 18 Blood Pressure 114/74 Pulse Oximetry 96 Intake & Output 08/05/18 08/06/18 08/06/18 18:59 06:59 18:59 Weight 79 kg Narrative: GENERAL: Well-developed, well-nourished patient in [facility]. SKIN: Warm and dry. No rash. Left upper arm AV fistula with bruit and thrill noted. HEAD: Normocephalic. Atraumatic. EYES: Pupils equal and round. No scleral icterus. No injection or drainage. ENT: No nasal bleeding or discharge. Mucous membranes pink and moist. NECK: Supple. Trachea midline. CARDIOVASCULAR: Regular rate and rhythm. S1, S2 noted. No murmur appreciated. No chest pain to palpation. RESPIRATORY: No accessory muscle use. Clear to auscultation. Breath sounds equal bilaterally. GASTROINTESTINAL: Abdomen soft, non-tender, nondistended. Normoactive bowel sounds x4. MUSCULOSKELETAL: No obvious deformities. Extremities without clubbing, cyanosis , or edema. NEUROLOGICAL: Awake and alert. No obvious cranial nerve deficits. Motor grossly within normal limits. 5/5 muscle strength in bilateral upper and lower extremities. Normal speech. PSYCHIATRIC: Appropriate mood and affect; insight and judgment normal. Results - Labs CBC & Chem 7: 08/06/18 12:41 08/06/18 12:05 Labs: Laboratory Results - last 24 hr 08/06/18 08/06/18 08/06/18 12:05 12:41 13:25 CBC w Diff Auto diff final WBC 8.6 RBC 4.78 Hgb 14.3 Hct 43.7 MCV 91.3 MCH 29.8 MCHC 32.7 RDW 13.3 Plt Count 149 L MPV 9.7 Neut % (Auto) 66.7 Lymph % (Auto) 22.3 [place] % (Auto) 4.8 Eos % (Auto) 2.4 Baso % (Auto) 3.8 H Neut # (Auto) 5.8 Lymph # (Auto) 1.9 [place] # (Auto) 0.4 Eos # (Auto) 0.2 Baso # (Auto) 0.3 H WBC Differential . Differential Comment . PT 10.7 INR 1.1 APTT 25.3 Sodium 135 L Potassium 5.2 H Chloride 102 Carbon Dioxide 22.5 Anion Gap 11 BUN 35 H Creatinine 5.60 H Estimated GFR 9 L Random Glucose 101 Calcium 8.6 Total Bilirubin 0.5 AST 227 H ALT 265 H Alkaline Phosphatase 110 Total Creatine Kinase 28 Troponin I 0.03 Total Protein 7.5 Albumin 3.5 - Imaging Impressions Chest X-Ray 08/06/18 11:27 CONCLUSION: Clear lungs. Pelvis Ultrasound 08/06/18 11:27 CONCLUSION: 1. Simple cyst right ovary measuring 2.5 cm. Caprini VTE Risk Assessment Caprini VTE Risk Assessment: No/Low Risk (score <= 1) Caprini Risk Assessment Model: Point Value = 1 Point Value = 2 Point Value = 3 Point Value = 5 Age 41-60 Minor surgery BMI > 25 kg/m2 Swollen legs Varicose veins or History of unexplained or recurrent spontaneous Oral contraceptives or hormone replacement Sepsis (< 1 month) Serious lung disease, including pneumonia (< 1 month) Abnormal pulmonary function Acute myocardial infarction Congestive heart failure (< 1 month) History of inflammatory bowel disease Medical patient at bed rest Age 61-74 Arthroscopic surgery Major open surgery (> 45 min) Laparoscopic surgery (> 45 min) Malignancy Confined to bed (> 72 hours) Immobilizing plaster cast Central venous access Age >= 75 History of VTE Family history of VTE Factor V Leiden Prothrombin [id number] Lupus anticoagulant Anticardiolipin antibodies Elevated serum homocysteine Heparin-induced thrombocytopenia Other congenital or acquired thrombophilia Stroke (< 1 month) Elective arthroplasty Hip, pelvis, or leg fracture Acute spinal cord injury (< 1 month) Prophylaxis Regimen: Total Risk Factor Score Risk Level Prophylaxis Regimen 0-1 Low Early ambulation 2 Moderate Order ONE of the following: *Sequential Compression Device (SCD) *Heparin 5000 units SQ BID 3-4 Higher Order ONE of the following medications: *Heparin 5000 units SQ TID *Enoxaparin/Lovenox 40 mg SQ daily (WT < 150 kg, CrCl > 30 mL/min) *Enoxaparin/Lovenox 30 mg SQ daily (WT < 150 kg, CrCl > 10-29 mL/min) *Enoxaparin/Lovenox 30 mg SQ BID (WT < 150 kg, CrCl > 30 mL/min) AND/OR *Sequential Compression Device (SCD) 5 or more Highest Order ONE of the following medications: *Heparin 5000 units SQ TID (Preferred with Epidurals) *Enoxaparin/Lovenox 40 mg SQ daily (WT < 150 kg, CrCl > 30 mL/min) *Enoxaparin/Lovenox 30 mg SQ daily (WT < 150 kg, CrCl > 10-29 mL/min) *Enoxaparin/Lovenox 30 mg SQ BID (WT < 150 kg, CrCl > 30 mL/min) AND *Sequential Compression Device (SCD) Assessment and Plan - Assessment (1) Chest pain Code(s): R07.9 - Chest pain, unspecified Status: Acute - Plan 28-year-old female admitted with: Chest pain, atypical History of chronic cardiomyopathy -Patient complains of 2 weeks of left-sided chest pressure. -Patient has been admitted to the chest pain center for observation. Serial EKGs and serial troponins been ordered for ruling out ACS purposes. Initial troponin flat. Continue to monitor troponin trend. EKG reviewed, sinus rhythm , no ST changes to indicate any ischemia. -Continue cardiac telemetry overnight, monitor for any arrhythmias. -Chest x-ray reviewed, no acute cardiopulmonary disease noted. -Morphine IV available as needed per pain scale and pain control. -Zofran available for nausea as needed. -Patient states her last echocardiogram was within the year, reportedly having an EF of roughly around 15%. Has an AICD in place. -Patient's last stress test was reportedly several years ago and unremarkable at that time. -Factors include family history of cardiac vascular disease, history of cardiomyopathy. -If ACS ruled out with serial EKGs and serial troponins, patient will undergo a cardiac treadmill stress test to further rule out any ischemia. -Patient is stable at this time and agreeable to plan. -Further hospitalization and treatment plan will depend on cardiac treadmill stress test results. Abdominal pain Diarrhea -Pelvic ultrasound performed and reviewed showing left-sided ovarian cyst. Patient states she does have a history of ovarian cyst. Last menstrual period was 1 month ago. -Patient complains of diarrhea times 2 weeks. Will test for C. difficile and stool studies. -Gently hydrate NS 42 mL x 1 L. -Encourage p.o. intake as tolerated. Chronic kidney disease End-stage renal disease -Patient is on dialysis Saturday, Saturday, Saturday last treatment was on Saturday. -Continue on Bumex from home after gentle hydration. -Avoid nephrotoxins. Monitor urine output. Hyperkalemia suspect secondary to above Hypertension, chronic: We will continue home medications. Monitor blood pressure trends. Type 2 diabetes mellitus, chronic: Diet controlled. Accu-Chek before meals at bedtime, sliding scale, cover as needed. Monitor blood sugar trends. Heart healthy/diabetic diet. DVT prophylaxis: SCDs. (1) Chest pain Qualifiers: Chest pain type: unspecified Qualified Code(s): R07.9 - Chest pain, unspecified
[2018-08-06] MEDS ORDERED: Sod Chloride 0.9% Inj 1,000 ML IV.CONT SCH (16:15)
[2018-08-06] MEDS: Morphine Inj 4 MG/ML Vial IV.PUSH PRN (17:15)
[2018-08-06 19:48] LABS: Creatine Kinase 46 U/L (26-192)
[2018-08-06 23:20] LABS: Creatine Kinase 58 U/L (26-192)
[2018-08-07] MEDS: Morphine Inj 4 MG/ML Vial IV.PUSH PRN ×2 (00:18→04:32)
[2018-08-07 06:51] LABS: Chloride 104 meq/L (98-107); Sodium 136 meq/L (136-145)
[2018-08-07 06:54] LABS: Calcium 8.1 mg/dL (8.5-10.1)
[2018-08-07 07:12] LABS: Alanine Aminotransferase 176 U/L (10-53); Albumin 2.8 g/dL (3.4-5.0); Alkaline Phosphatase 88 U/L (45-117); Anion Gap 10 meq/L (5-15); Aspartate Aminotransferase 98 U/L (15-37); Blood Urea Nitrogen 49 mg/dL (7-18); Carbon Dioxide 21.8 meq/L (21.0-32.0); Glomerular Filtration Rate 8 mL/min (>89); Glucose,Random 104 mg/dL (74-106); Total Protein 6.3 g/dL (6.4-8.2)
--- NOTE | 2018-08-07 08:02 | P.PNIM ---
Subjective Interval history: Follow up chest pain and abdominal pain. Patient seen and examined, lying in bed comfortably. No acute events overnight. Improved abdominal pain, no diarrhea. VSS. Afebrile. Will do treadmill stress test today. Physical Exam Vital signs: Vital Signs 08/06/18 10:41 08/06/18 11:39 08/06/18 12:27 Temperature 99 F Pulse Rate 91 H 89 Respiratory Rate 18 12 Blood Pressure 133/82 Pulse Oximetry 97 98 08/06/18 14:38 08/06/18 14:49 08/06/18 14:58 Temperature Pulse Rate 88 Respiratory Rate 18 18 Blood Pressure 114/74 Pulse Oximetry 96 97 08/06/18 16:00 08/06/18 20:00 08/06/18 20:10 Temperature 98.5 F 98.1 F Pulse Rate 81 79 Respiratory Rate 20 18 Blood Pressure 114/75 109/57 L Pulse Oximetry 97 94 L 96 08/06/18 22:52 08/07/18 00:00 08/07/18 04:00 Temperature 98.2 F 98.2 F Pulse Rate 78 96 H Respiratory Rate 18 20 20 Blood Pressure 125/71 111/75 Pulse Oximetry 97 97 08/07/18 05:33 Temperature Pulse Rate 75 Respiratory Rate Blood Pressure Pulse Oximetry Intake & Output 08/06/18 08/07/18 08/07/18 18:59 06:59 18:59 Intake Total 1460 / 1460 Output Total 300 / 300 Balance 1160 / 1160 Weight 79 kg 80.1 kg Intake: IV 500 / 500 NS Inj 1,000 ML @ 42 mls/hr IV. 500 / 500 CONT .[id number] [facility] Rx#: [id number] Oral 960 / 960 Output: Urine 300 / 300 Other: # Voids 1 3 Date of Last Bowel Movement 08/06/18 Weight On Admission 79 kg Narrative: GENERAL: Well-developed, well-nourished patient in [facility]. SKIN: Warm and dry. No rash. Left upper arm AV fistula with bruit and thrill noted. HEAD: Normocephalic. Atraumatic. EYES: Pupils equal and round. No scleral icterus. No injection or drainage. ENT: No nasal bleeding or discharge. Mucous membranes pink and moist. NECK: Supple. Trachea midline. CARDIOVASCULAR: Regular rate and rhythm. S1, S2 noted. No murmur appreciated. No chest pain to palpation. RESPIRATORY: No accessory muscle use. Clear to auscultation. Breath sounds equal bilaterally. GASTROINTESTINAL: Abdomen soft, non-tender, nondistended. Normoactive bowel sounds x4. MUSCULOSKELETAL: No obvious deformities. Extremities without clubbing, cyanosis , or edema. NEUROLOGICAL: Awake and alert. No obvious cranial nerve deficits. Motor grossly within normal limits. 5/5 muscle strength in bilateral upper and lower extremities. Normal speech. PSYCHIATRIC: Appropriate mood and affect; insight and judgment normal. Results - Labs CBC & Chem 7: 08/06/18 12:41 08/07/18 06:10 Laboratory Results - last 24 hr 08/06/18 08/06/18 08/06/18 12:05 12:41 13:25 CBC w Diff Auto diff final WBC 8.6 RBC 4.78 Hgb 14.3 Hct 43.7 MCV 91.3 MCH 29.8 MCHC 32.7 RDW 13.3 Plt Count 149 L MPV 9.7 Neut % (Auto) 66.7 Lymph % (Auto) 22.3 [place] % (Auto) 4.8 Eos % (Auto) 2.4 Baso % (Auto) 3.8 H Neut # (Auto) 5.8 Lymph # (Auto) 1.9 [place] # (Auto) 0.4 Eos # (Auto) 0.2 Baso # (Auto) 0.3 H WBC Differential . Differential Comment . PT 10.7 INR 1.1 APTT 25.3 Sodium 135 L Potassium 5.2 H Chloride 102 Carbon Dioxide 22.5 Anion Gap 11 BUN 35 H Creatinine 5.60 H Estimated GFR 9 L Random Glucose 101 Calcium 8.6 Total Bilirubin 0.5 AST 227 H ALT 265 H Alkaline Phosphatase 110 Total Creatine Kinase 28 Troponin I 0.03 Total Protein 7.5 Albumin 3.5 08/06/18 08/06/18 08/07/18 18:30 22:38 06:10 CBC w Diff WBC RBC Hgb Hct MCV MCH MCHC RDW Plt Count MPV Neut % (Auto) Lymph % (Auto) [place] % (Auto) Eos % (Auto) Baso % (Auto) Neut # (Auto) Lymph # (Auto) [place] # (Auto) Eos # (Auto) Baso # (Auto) WBC Differential Differential Comment PT INR APTT Sodium 136 Potassium 5.0 Chloride 104 Carbon Dioxide 21.8 Anion Gap 10 BUN 49 H Creatinine 6.10 H Estimated GFR 8 L Random Glucose 104 Calcium 8.1 L Total Bilirubin 0.3 AST 98 H ALT 176 H Alkaline Phosphatase 88 Total Creatine Kinase 46 58 Troponin I Less than 0.02 L Less than 0.02 L Total Protein 6.3 L D Albumin 2.8 L D - Imaging Impressions Chest X-Ray 08/06/18 11:27 CONCLUSION: Clear lungs. Pelvis Ultrasound 08/06/18 11:27 CONCLUSION: 1. Simple cyst right ovary measuring 2.5 cm. Assessment and Plan - Assessment (1) Chest pain Code(s): R07.9 - Chest pain, unspecified Status: Acute - Plan 28-year-old female admitted with: Chest pain, atypical History of chronic cardiomyopathy -Patient complains of 2 weeks of left-sided chest pressure. -Patient has been admitted to the chest pain center for observation. Serial EKGs and serial troponins been ordered for ruling out ACS purposes. Initial troponin flat. Continue to monitor troponin trend. EKG reviewed, sinus rhythm , no ST changes to indicate any ischemia. -Continue cardiac telemetry overnight, monitor for any arrhythmias. -Chest x-ray reviewed, no acute cardiopulmonary disease noted. -Morphine IV available as needed per pain scale and pain control. -Zofran available for nausea as needed. -Patient states her last echocardiogram was within the year, reportedly having an EF of roughly around 15%. Has an AICD in place. Follows with Dr. Cardoso. -Patient's last stress test was reportedly several years ago and unremarkable at that time. -Factors include family history of cardiac vascular disease, history of cardiomyopathy. -ACS ruled out with serial EKGs and serial troponins, patient will undergo a cardiac treadmill stress test to further rule out any ischemia. -Patient is stable at this time and agreeable to plan. -Further hospitalization and treatment plan will depend on cardiac treadmill stress test results. Abdominal pain, resolved. Diarrhea, resolved. -Pelvic ultrasound performed and reviewed showing left-sided ovarian cyst. Patient states she does have a history of ovarian cyst. Last menstrual period was 1 month ago. -Patient complains of diarrhea times 2 weeks. No further diarrhea overnight, no specimen to send for ordered labs. -Gently hydrate NS 42 mL x 1 L. Finished. Chronic kidney disease End-stage renal disease -Patient is on dialysis Saturday, Saturday, Saturday last treatment was on Saturday. -Continue on Bumex from home after gentle hydration. -Avoid nephrotoxins. Monitor urine output. Hyperkalemia suspect secondary to above: Has improved. Hypertension, chronic: Will continue home medications. Monitor blood pressure trends. Type 2 diabetes mellitus, chronic: Diet controlled. Accu-Chek before meals at bedtime, sliding scale, cover as needed. Monitor blood sugar trends. Heart healthy/diabetic diet. DVT prophylaxis: SCDs. Discharge Planning: Anticipate DC after stress test today. (1) Chest pain Qualifiers: Chest pain type: unspecified Qualified Code(s): R07.9 - Chest pain, unspecified
[2018-08-07 08:32] VITALS: BP 113/67; TEMP 98; O2SAT 96
--- NOTE | 2018-08-07 10:06 | TR ---
Date Performed: 08/07/2018 Time Performed: 08:39:45 DOCTOR: Jericho Rodriguez DRUG LIST: CLINICAL HISTORY: CHEST PAIN REASON FOR TEST: Chest pain REASON FOR ENDING: OBSERVATION: CONCLUSION: Collin protocol completed, test stopped secondary to reaching target heart rate and s hortness of breath. Fair exercise tolerance. No ST changes. Good BP response. Recovery quick and unre markable.Maximum XD=328 Target HR Iggabsdg=576.0% Maximum BG=246/78 Total Exercise Time=3:10 COMMENTS: Conclusion: Normal treadmill exercise. No evidence of ischemia. exercise tolerance de creased for age.
[2018-08-07 10:11] VITALS: PULSE 88; RESP 19
--- NOTE | 2018-08-07 20:27 | ECG ---
Date Performed: 08/06/2018 Time Performed: 18:22:49 PTAGE: 28 years EKG: Sinus rhythm LEFT VENTRICULAR HYPERTROPHY AND ST-T CHANGE POSSIBLE SEPTAL MYOCARDIAL INFARCTION ABNORMAL ECG PREVIOUS TRACING : 08/06/2018 14.45 Since the previous tracing, no significant change noted DOCTOR: Bryan Tee Interpretating Date/Time 08/07/2018 20:26:27
--- NOTE | 2018-08-07 20:33 | ECG ---
Date Performed: 08/06/2018 Time Performed: 14:45:13 PTAGE: 28 years EKG: Sinus rhythm LEFT VENTRICULAR HYPERTROPHY AND ST-T CHANGE POSSIBLE SEPTAL MYOCARDIAL INFARCTION ABNORMAL ECG PREVIOUS TRACING : 06/04/2018 00.04 Since the previous tracing, no significant change noted DOCTOR: Bryan Tee Interpretating Date/Time 08/07/2018 20:33:05
== END 2018-08-07 10:43 | disposition home or self-care (01) ==
LOC: PHED 10:39 → PHEDA 10:39 → PH3 15:05
PROVIDERS: ADMIT Internal Medicine; ATTEND Internal Medicine
DX: Z90.49 Acquired absence of other specified parts of digestive tract; I12.0 Hypertensive chronic kidney disease with stage 5 chronic kidney disease or end stage renal disease; Z82.49 Family history of ischemic heart disease and other diseases of the circulatory system; Z95.810 Presence of automatic (implantable) cardiac defibrillator; Z87.891 Personal history of nicotine dependence; E11.22 Type 2 diabetes mellitus with diabetic chronic kidney disease; N18.6 End stage renal disease; R07.9 Chest pain, unspecified; Z98.51 Tubal ligation status; N83.202 Unspecified ovarian cyst, left side; E87.5 Hyperkalemia; Z99.2 Dependence on renal dialysis

== ENCOUNTER 2018-10-07 11:04 | Observation (INO) ==
[~2018-10-07 11:04] MED LIST changes: -BUME2TAB PO; +Bupivacaine PF 0.5% Inj 10 ML Vial ONE; -CARV12.5 PO; +Heparin 10,000 UNITS/10 ML Vial (for IV use) ONE; +Heparin/NS PF Inj 500 ML ONE; -PROT40TA PO; +Protamine Sulfate Inj 50 MG/5 ML Vial ONE; -RANI300T PO; -SACU1TAB7 PO; -SEVEL800 PO; +Thrombin Topical 20,000 UNIT Spray Kit TOPICAL ONE; -VANC1INJ2 IV
--- NOTE | 2018-10-07 11:44 | P.HPVS ---
History of Present Illness Chief Complaint: ESRD, need for HD access History of Present Illness: 28 yo female with ESRD s/p L UE BB AVF (1st stage), needs 2nd stage. No changes in health that would preclude OR. - Inpatient Certification If this patient has been admitted as an Inpatient: I certify that the inpatient services were ordered in accordance with Medicare regulations governing the order. This includes certification that hospital inpatient services are reasonable and necessary and in the case of services not specified as inpatient-only under 42 CFR 419.22(n), that they are appropriately provided as inpatient services in accordance to with the 2-midnight benchmark under 43 CFR 412.3(e) Estimated Total Length of Stay (Days): 2 Plans for Post Hospital Care: Home Review of Systems All other systems reviewed negative except as stated in HPI PMFSH - History History Provided By: Patient - Medical History Medical History: Medical History (Last Reviewed 10/07/18 @ 11:42 by Monroe Rodriguez MD) Cardiomyopathy delivery delivered Dialysis patient End stage renal disease Fistula History of MRSA infection Onset Date: ~09/16/18 Pancreatitis - Surgical History Surgical History: Surgical History (Last Reviewed 10/07/18 @ 11:42 by Monroe Rodriguez MD) AICD (automatic cardioverter/defibrillator) present History of cholecystectomy History of tubal ligation - Family History Family History: Family History (Last Reviewed 08/30/18 @ 06:25 by Jayleen De Leon MD) Mother Hypertension Rheumatoid arthritis Father Pancreas hemorrhage - Tobacco History Second Hand Smoke Exposure: Yes (PARENTS) Smoking Status: Former smoker Tobacco Type: Cigarettes - Alcohol History How Often Do You Have a Drink Containing Alcohol: Never - Substance Use History Substance History: Active Abuse Medications and Allergies Allergies Allergy/AdvReac Type Severity Reaction Status Date / Time niacin Allergy Intermediate Shakiness Verified 09/16/18 12:29 adhesive tape AdvReac Intermediate Blister Verified 09/16/18 12:29 ketorolac AdvReac Mild SHAKING Verified 09/16/18 12:29 Home Medications Medication Instructions Recorded Confirmed Type bumetanide 4 mg PO DAILY 08/03/18 09/16/18 History hydrocodone-acetaminophen 1 tab PO Q4-6H PRN 08/03/18 09/16/18 History calcium carbonate [Calcium 500] 500 mg PO QID #0 08/06/18 09/16/18 History sacubitril-valsartan 1 tab PO BID 08/27/18 09/16/18 History carvedilol [Coreg] 3.125 mg PO BID 08/28/18 09/16/18 History Physical Exam Neuro: alert, no distress HEENT: NC/AT Neck: no JVD Heart: reg rate Lungs: clear Vascular: L UE incision ok + thrill hand ok Caprini VTE Risk Assessment Caprini VTE Risk Assessment: No/Low Risk (score <= 1) (intraop heparin) Caprini Risk Assessment Model: Point Value = 1 Point Value = 2 Point Value = 3 Point Value = 5 Age 41-60 Minor surgery BMI > 25 kg/m2 Swollen legs Varicose veins or History of unexplained or recurrent spontaneous Oral contraceptives or hormone replacement Sepsis (< 1 month) Serious lung disease, including pneumonia (< 1 month) Abnormal pulmonary function Acute myocardial infarction Congestive heart failure (< 1 month) History of inflammatory bowel disease Medical patient at bed rest Age 61-74 Arthroscopic surgery Major open surgery (> 45 min) Laparoscopic surgery (> 45 min) Malignancy Confined to bed (> 72 hours) Immobilizing plaster cast Central venous access Age >= 75 History of VTE Family history of VTE Factor V Leiden Prothrombin [id number] Lupus anticoagulant Anticardiolipin antibodies Elevated serum homocysteine Heparin-induced thrombocytopenia Other congenital or acquired thrombophilia Stroke (< 1 month) Elective arthroplasty Hip, pelvis, or leg fracture Acute spinal cord injury (< 1 month) Prophylaxis Regimen: Total Risk Factor Score Risk Level Prophylaxis Regimen 0-1 Low Early ambulation 2 Moderate Order ONE of the following: *Sequential Compression Device (SCD) *Heparin 5000 units SQ BID 3-4 Higher Order ONE of the following medications: *Heparin 5000 units SQ TID *Enoxaparin/Lovenox 40 mg SQ daily (WT < 150 kg, CrCl > 30 mL/min) *Enoxaparin/Lovenox 30 mg SQ daily (WT < 150 kg, CrCl > 10-29 mL/min) *Enoxaparin/Lovenox 30 mg SQ BID (WT < 150 kg, CrCl > 30 mL/min) AND/OR *Sequential Compression Device (SCD) 5 or more Highest Order ONE of the following medications: *Heparin 5000 units SQ TID (Preferred with Epidurals) *Enoxaparin/Lovenox 40 mg SQ daily (WT < 150 kg, CrCl > 30 mL/min) *Enoxaparin/Lovenox 30 mg SQ daily (WT < 150 kg, CrCl > 10-29 mL/min) *Enoxaparin/Lovenox 30 mg SQ BID (WT < 150 kg, CrCl > 30 mL/min) AND *Sequential Compression Device (SCD) Assessment and Plan - Assessment (1) ESRD (end stage renal disease) Code(s): N18.6 - End stage renal disease Status: Chronic - Plan L UE AVF revision POA
--- NOTE | 2018-10-07 12:07 | XR ---
EXAM DATE: 10/07/2018 12:04 PM EST AGE/SEX: 28 years / Female INDICATIONS: Pre op for fistula surgery. CLINICAL DATA: This is the patient's initial encounter. Patient reports that signs and symptoms have been present for 1 day and indicates a pain score of 0/10. MEDICAL/SURGICAL HISTORY: . cardiomyopathy . AICD, fistula surgery. COMPARISON: [facility], CHEST 1V SINGLE AP, 09/16/2018. . FINDINGS: The heart remains enlarged. The pulmonary vascular and additional. The lungs are clear. Tunneled dial ysis catheter is noted on the right and has its tips in right atrium. Left subclavian pacemaker has i ts tip in the right ventricle. CONCLUSION: 1. Cardiomegaly. 2. No focal infiltrate or pulmonary vascular congestion. Electronically signed by: Monroe Colorado MD Board Certified Radiologist 10/07/2018 12:05 PM EST
[2018-10-07] MEDS ORDERED: Sodium Chlor 0.9% Inj 500 ML IV.CONT ONE (12:15)
[2018-10-07] MEDS ORDERED: Chlorhexidine Gluconate 2% 1 Pack (2 Cloths) TOPICAL ONE (12:15)
[2018-10-07] MEDS ORDERED: Metoprolol Tartrate 25 MG Tablet PO ONE (12:15)
[2018-10-07 12:40] LABS: Baso # (Auto) 0.1 th/mm3 (0.0-0.2); Baso % (Auto) 1.3 % (0.0-2.0); Eos # (Auto) 0.2 th/mm3 (0.0-0.4); Eos % (Auto) 2.9 % (0.0-4.0); Hematocrit 29.9 % (35.0-46.0); Hemoglobin 10.6 gm/dL (11.6-15.3); Lymph # (Auto) 1.3 th/mm3 (1.0-4.8); Lymph % (Auto) 21.3 % (9.0-44.0); Mean Corpuscular HGB Conc 35.3 % (32.0-36.0); Mean Corpuscular Volume 90.5 fL (80.0-100.0); Mean Platelet Volume 9.9 fL (7.0-11.0); Mono # (Auto) 0.4 th/mm3 (0.0-0.9); Mono % (Auto) 6.9 % (0.0-8.0); Neut % (Auto) 67.6 % (16.0-70.0); Platelet Count 123 th/mm3 (150-450); Red Blood Count 3.31 mil/mm3 (4.00-5.30); Red Cell Distribution Width 14.3 % (11.6-17.2); White Blood Count 5.9 th/mm3 (4.0-11.0)
[2018-10-07 12:49] LABS: Activated Partial Thrombo Time 26.9 sec (23.4-31.7); INR 1.1 Ratio
[2018-10-07 12:57] LABS: Calcium 8.3 mg/dL (8.5-10.1); Carbon Dioxide 21.9 meq/L (21.0-32.0); Potassium 4.1 meq/L (3.5-5.1)
[2018-10-07] MEDS ORDERED: Heparin 2,000 UNITS/2 ML Vial (for IV use) IV.FLUSH PRN (13:03)
--- NOTE | 2018-10-07 13:54 | P.OP ---
- Preoperative Diagnosis (1) ESRD (end stage renal disease) - Postoperative Diagnosis (1) ESRD (end stage renal disease) Date of procedure: 10/07/18 Procedure: LEFT UE access revision (superficialization) Implants: none Anesthesia: GETA Surgeon: Monroe Rodriguez MD Exhibition Designer: Linda Plasencia Estimated blood loss (mL): 30 IV fluids (mL): 450 Pathology: none sent Operation and Findings: marginal AVF, 5-6mm
[2018-10-07] MEDS ORDERED: fentaNYL Citrate Inj 100 MCG/2 ML Ampul ONE (13:59)
[2018-10-07] MEDS ORDERED: *morphine SULFATE 4 MG/ML PERIprocedure ONLY ONE (14:23)
[2018-10-07] MEDS ORDERED: Heparin 10,000 UNITS/10 ML Vial (for IV use) ONE (14:24)
[2018-10-07] MEDS: Calcium Carbonate 500 MG Tablet PO SCH ×2 (17:41→20:33)
[2018-10-07] MEDS ORDERED: Albumin Human 25% Inj 100 ML IV.SIG PRN (17:52)
[2018-10-07] MEDS ORDERED: Gelatin 12 MM/7 MM Topical Foam TOPICAL PRN (17:52)
[2018-10-07] MEDS ORDERED: Acetaminophen 325 MG Tablet PO PRN (17:52)
[2018-10-07] MEDS ORDERED: Sod Chloride 0.9% Inj 1,000 ML IV.CONT PRN (17:52)
[2018-10-07] MEDS ORDERED: Heparin 10,000 UNITS/10 ML Vial (for IV use) OTHER PRN ×2 (17:52)
[2018-10-07] MEDS ORDERED: Sod Chloride 0.9% Inj 1,000 ML OTHER PRN ×2 (17:52)
[2018-10-07] MEDS ORDERED: Morphine Sulfate 15 MG SR Tablet PO ONE (18:30)
--- NOTE | 2018-10-07 19:21 | MB ---
cc: Yamil Allen MD DATE: 10/07/2018 REASON FOR CONSULTATION: End-stage renal disease, on hemodialysis for management. HISTORY OF PRESENT ILLNESS: This is a 28-year-old female, known to me from before with a past medical history of hypertension, dilated cardiomyopathy, chronic anemia, end-stage renal disease on hemodialysis 3 times per week, was admitted for revision of left arm AV fistula. The patient has been on hemodialysis Saturday, Saturday, and Saturday, and according to her, she has hemodialysis access today. The patient was seen by me in the recovery room. She has second stage left upper arm AV fistula done. She was with her nasal cannula when I saw her late afternoon. She denies any shortness of breath. No chest pain. No palpitation. No headache or dizziness. The patient had some issues with her compliance with dialysis and with fluid intake, but recently she has been coming quite regularly. PAST MEDICAL HISTORY: Hypertension, cardiomyopathy, chronic anemia, end-stage renal disease on hemodialysis. PAST SURGICAL HISTORY: History of AICD placement, cholecystectomy, tubal ligation, and fistula surgery. REVIEW OF SYSTEMS: The patient denies any history of fever. No headache, dizziness, or blurry vision. No shortness of breath. No chest pain. No palpitation. No nausea or vomiting. No abdominal pain. She has mild pain at the site of the surgery. SOCIAL HISTORY: The patient has past history of smoking. There is no history of heavy alcoholism. FAMILY HISTORY: Positive for mother's side for hypertension . ALLERGIES: SHE IS ALLERGIC TO KETOROLAC. MEDICATIONS: Currently, she is on the following medications: 1. Laneview as needed. 2. Bumex 4 mg daily. 3. Os-Uziel 500 mg q.i.d. 4. Carvedilol 3.125 mg b.i.d. 5. Heparin 5000 units subcutaneous every 8 hours. 6. Entresto 49/51 mg one tablet b.i.d. PHYSICAL EXAMINATION: GENERAL: The patient is . VITAL SIGNS: Blood pressure 139/78, temperature is 98, oxygen saturation 100% on 2 L nasal mucosa. HEENT: Pupils are mid constricted. Nonicteric sclerae. Conjunctivae pale. NECK: Supple. No JVD. LUNGS: The patient has bilateral decreased air entry with occasional wheezing. HEART: S1, S2. Regular rate and rhythm. ABDOMEN: Distended, soft. There is no tenderness. Bowel sounds positive. EXTREMITIES: She has no edema of the legs. Left upper arm has AV fistula with good bruit. INVESTIGATIONS: WBC count is 5.9, hemoglobin 10.6, platelet count of 123. INR is 1.1. Sodium 138, potassium 4.1, chloride 105, bicarbonate 21.9, BUN 50, creatinine 6.34, calcium is 8.3. IMAGING STUDIES: The patient had chest x-ray done which shows cardiomegaly. No pulmonary infiltrate. ASSESSMENT AND PLAN: 1. End-stage renal disease, on hemodialysis. 2. Post-revision of left arm arteriovenous fistula with second stage surgery. 3. Anemia. 4. Hypertension. 5. Cardiomyopathy. The patient has been on hemodialysis Saturday, Saturday, and Saturday. Her blood pressure is stable. Continue antihypertensive medication. AV fistula is working and has good bruit. There is no steal in the left hand. Hemodialysis is due tomorrow. I will arrange for her hemodialysis tomorrow. Possibly, she will be discharged tomorrow if stable. Thank you for the consultation. MD PHYLLIS Valdes/mitchell/ , 05:51 PM , 06:03 PM
[2018-10-07 19:24] LABS: Bacteria,Urine Few /hpf; Bilirubin,Urine Negative (Negative); Clarity,Urine Cloudy (Clear); Color,Urine Yellow (Yellw/Straw); Glucose,Urine (UA) Negative (Negative); Leukocyte Esterase,Urine Negative (Negative); Nitrite,Urine Negative (Negative); Specific Gravity,Urine 1.013 (1.002-1.035); Squamous Epithelial Cell,Urine 35 /hpf (0-5)
[2018-10-07] MEDS: Carvedilol 6.25 MG Tablet PO SCH (20:34)
[2018-10-07] MEDS: HYDROmorphone PF Inj 0.5 MG/0.5 ML Syringe IV.PUSH PRN (22:29)
[2018-10-08] MEDS: HYDROmorphone PF Inj 0.5 MG/0.5 ML Syringe IV.PUSH PRN ×3 (03:44→12:37)
[2018-10-08 05:05] LABS: Hematocrit 30.6 % (35.0-46.0); Hemoglobin 10.5 gm/dL (11.6-15.3); Mean Corpuscular HGB Conc 34.3 % (32.0-36.0); Mean Corpuscular Volume 90.3 fL (80.0-100.0); Mean Platelet Volume 10.4 fL (7.0-11.0); Platelet Count 116 th/mm3 (150-450); Red Blood Count 3.39 mil/mm3 (4.00-5.30); Red Cell Distribution Width 14.4 % (11.6-17.2); White Blood Count 5.6 th/mm3 (4.0-11.0)
[2018-10-08 05:33] LABS: Carbon Dioxide 22.7 meq/L (21.0-32.0); Potassium 4.1 meq/L (3.5-5.1)
[2018-10-08 07:43] VITALS: RESP 16; O2SAT 100
--- NOTE | 2018-10-08 07:46 | P.PNVS ---
Subjective Post Op Day #: 1 Procedure: LEFT arm access revision (superficialization) Subjective/Hospital Course: c/o incisional pain overnight, controlled with dilaudid hand ok Objective Vital Signs / I&O: Vital Signs 10/07/18 12:21 10/07/18 14:15 10/07/18 14:30 Temperature 98.7 F 98.2 F Pulse Rate 85 101 H 87 Respiratory Rate 16 16 16 Blood Pressure 136/85 142/93 H 148/88 H Pulse Oximetry 98 100 100 10/07/18 14:45 10/07/18 14:53 10/07/18 14:55 Temperature Pulse Rate 80 Respiratory Rate 16 16 Blood Pressure 146/81 H Pulse Oximetry 100 98 10/07/18 15:00 10/07/18 15:15 10/07/18 15:20 Temperature Pulse Rate 79 85 Respiratory Rate 17 17 17 Blood Pressure 150/81 H 140/81 Pulse Oximetry 100 100 10/07/18 15:30 10/07/18 15:45 10/07/18 16:15 Temperature Pulse Rate 81 80 81 Respiratory Rate 16 16 16 Blood Pressure 137/78 143/79 H 143/77 H Pulse Oximetry 97 97 97 10/07/18 16:45 10/07/18 16:55 10/07/18 17:00 Temperature 97.7 F Pulse Rate 84 82 Respiratory Rate 16 16 16 Blood Pressure 141/84 H 144/84 H Pulse Oximetry 97 9 L 100 10/07/18 17:14 10/07/18 18:00 10/07/18 19:00 Temperature 98.0 F Pulse Rate 85 78 102 H Respiratory Rate 16 Blood Pressure 139/78 Pulse Oximetry 100 10/07/18 20:00 10/07/18 20:34 10/07/18 21:00 Temperature 98.9 F Pulse Rate 94 H 86 Respiratory Rate 17 18 Blood Pressure 136/79 Pulse Oximetry 99 10/07/18 21:20 10/07/18 22:24 10/07/18 23:00 Temperature Pulse Rate 86 Respiratory Rate 16 16 Blood Pressure Pulse Oximetry 10/07/18 23:52 10/07/18 23:55 10/08/18 01:00 Temperature 98.9 F Pulse Rate 87 75 Respiratory Rate 17 17 Blood Pressure 144/81 H Pulse Oximetry 97 10/08/18 02:00 10/08/18 03:00 10/08/18 03:48 Temperature 98.3 F Pulse Rate 78 78 83 Respiratory Rate 18 Blood Pressure 146/75 H Pulse Oximetry 99 10/08/18 04:00 10/08/18 05:00 10/08/18 05:17 Temperature Pulse Rate 78 78 92 H Respiratory Rate Blood Pressure Pulse Oximetry 10/08/18 07:39 Temperature 98.4 F Pulse Rate 82 Respiratory Rate 16 Blood Pressure 115/59 L Pulse Oximetry 100 Intake & Output 10/07/18 10/08/18 10/08/18 18:59 06:59 18:59 Intake Total 460 / 460 480 / 480 Output Total 30 / 30 600 / 600 Balance 430 / 430 -120 / -120 Weight 85.9 kg 85.6 kg Intake: Oral 460 / 460 480 / 480 Output: Urine 30 600 / 600 Other: # Voids 1 Date of Last Bowel Movement 10/06/18 Weight On Admission 85.9 kg Exam: resting comfortably hand ok arm Prevena in place Laboratory Results - last 24 hr 10/07/18 10/07/18 10/07/18 12:25 12:25 12:25 WBC 5.9 RBC 3.31 L Hgb 10.6 L Hct 29.9 L MCV 90.5 MCH 32.0 MCHC 35.3 RDW 14.3 Plt Count 123 L MPV 9.9 Neut % (Auto) 67.6 Lymph % (Auto) 21.3 [place] % (Auto) 6.9 Eos % (Auto) 2.9 Baso % (Auto) 1.3 Neut # (Auto) 4.0 Lymph # (Auto) 1.3 [place] # (Auto) 0.4 Eos # (Auto) 0.2 Baso # (Auto) 0.1 WBC Differential . Differential Comment Auto diff final PT 11.0 INR 1.1 APTT 26.9 Sodium Potassium Chloride Carbon Dioxide Anion Gap BUN Creatinine Estimated GFR Random Glucose Calcium Urine Color Urine Clarity Urine pH Ur Specific [place] Urine Protein Urine Glucose (UA) Urine Ketones Urine Occult Blood Urine Nitrate Urine Bilirubin Urine Urobilinogen Ur Leukocyte Esterase Urine RBC Urine WBC Ur Squamous Epith Cells Urine Bacteria Micro UA Comment Ur Microscopic Review Urine Culture Comments Blood Type A Positive Antibody Screen Negative 10/07/18 10/07/18 10/08/18 12:25 18:15 04:11 WBC 5.6 RBC 3.39 L Hgb 10.5 L Hct 30.6 L MCV 90.3 MCH 31.0 MCHC 34.3 RDW 14.4 Plt Count 116 L MPV 10.4 Neut % (Auto) Lymph % (Auto) [place] % (Auto) Eos % (Auto) Baso % (Auto) Neut # (Auto) Lymph # (Auto) [place] # (Auto) Eos # (Auto) Baso # (Auto) WBC Differential Differential Comment PT INR APTT Sodium 138 Potassium 4.1 Chloride 105 Carbon Dioxide 21.9 Anion Gap 11 BUN 50 H Creatinine 6.34 H Estimated GFR 8 L Random Glucose 113 H Calcium 8.3 L Urine Color Yellow Urine Clarity Cloudy H Urine pH 5.0 Ur Specific [place] 1.013 Urine Protein 500 or greater Urine Glucose (UA) Negative Urine Ketones Negative Urine Occult Blood Negative Urine Nitrate Negative Urine Bilirubin Negative Urine Urobilinogen Less than 2 Ur Leukocyte Esterase Negative Urine RBC Less than 1 Urine WBC Less than 1 Ur Squamous Epith Cells 35 Urine Bacteria Few H Micro UA Comment Culture not ind Ur Microscopic Review Not Reportable Urine Culture Comments Culture not ind Blood Type Antibody Screen 10/08/18 04:11 WBC RBC Hgb Hct MCV MCH MCHC RDW Plt Count MPV Neut % (Auto) Lymph % (Auto) [place] % (Auto) Eos % (Auto) Baso % (Auto) Neut # (Auto) Lymph # (Auto) [place] # (Auto) Eos # (Auto) Baso # (Auto) WBC Differential Differential Comment PT INR APTT Sodium 140 Potassium 4.1 Chloride 107 Carbon Dioxide 22.7 Anion Gap 10 BUN 46 H Creatinine 6.55 H Estimated GFR 7 L Random Glucose 86 Calcium 8.0 L Urine Color Urine Clarity Urine pH Ur Specific [place] Urine Protein Urine Glucose (UA) Urine Ketones Urine Occult Blood Urine Nitrate Urine Bilirubin Urine Urobilinogen Ur Leukocyte Esterase Urine RBC Urine WBC Ur Squamous Epith Cells Urine Bacteria Micro UA Comment Ur Microscopic Review Urine Culture Comments Blood Type Antibody Screen Assessment and Plan - Assessment (1) ESRD (end stage renal disease) Code(s): N18.6 - End stage renal disease Status: Chronic - Plan POD#1 s/p L UE access revision (superficialization) looks good hand ok 1. D/C today 2. RTC Saturday for Prevena removal Discharge Planning: D/C today
--- NOTE | 2018-10-08 08:27 | P.DS ---
Discharge Summary - Admission Date 10/07/18 14:03 - Admission Diagnosis (1) ESRD (end stage renal disease) - Discharge Date 10/08/18 - Discharge Diagnosis (1) Arteriovenous fistula Status: Acute (2) ESRD (end stage renal disease) Status: Chronic - Summary Brief History from admission: 28 yo female with ESRD s/p L UE BB AVF (1st stage), needs 2nd stage. No changes in health that would preclude OR. Procedure: LEFT arm access revision (superficialization) Significant Findings: Left with mild arm swelling Prevena intact w/o swelling or hematoma No hand pain palpable radial pulse Abnormal Lab Results 10/07/18 10/07/18 10/07/18 12:25 12:25 12:25 WBC 5.9 RBC 3.31 L Hgb 10.6 L Hct 29.9 L MCV 90.5 MCH 32.0 MCHC 35.3 RDW 14.3 Plt Count 123 L MPV 9.9 Neut % (Auto) 67.6 Lymph % (Auto) 21.3 [place] % (Auto) 6.9 Eos % (Auto) 2.9 Baso % (Auto) 1.3 Neut # (Auto) 4.0 Lymph # (Auto) 1.3 [place] # (Auto) 0.4 Eos # (Auto) 0.2 Baso # (Auto) 0.1 WBC Differential . Differential Comment Auto diff final PT 11.0 INR 1.1 APTT 26.9 Sodium Potassium Chloride Carbon Dioxide Anion Gap BUN Creatinine Estimated GFR Random Glucose Calcium Urine Color Urine Clarity Urine pH Ur Specific [place] Urine Protein Urine Glucose (UA) Urine Ketones Urine Occult Blood Urine Nitrate Urine Bilirubin Urine Urobilinogen Ur Leukocyte Esterase Urine RBC Urine WBC Ur Squamous Epith Cells Urine Bacteria Micro UA Comment Ur Microscopic Review Urine Culture Comments Blood Type A Positive Antibody Screen Negative 10/07/18 10/07/18 10/08/18 12:25 18:15 04:11 WBC 5.6 RBC 3.39 L Hgb 10.5 L Hct 30.6 L MCV 90.3 MCH 31.0 MCHC 34.3 RDW 14.4 Plt Count 116 L MPV 10.4 Neut % (Auto) Lymph % (Auto) [place] % (Auto) Eos % (Auto) Baso % (Auto) Neut # (Auto) Lymph # (Auto) [place] # (Auto) Eos # (Auto) Baso # (Auto) WBC Differential Differential Comment PT INR APTT Sodium 138 Potassium 4.1 Chloride 105 Carbon Dioxide 21.9 Anion Gap 11 BUN 50 H Creatinine 6.34 H Estimated GFR 8 L Random Glucose 113 H Calcium 8.3 L Urine Color Yellow Urine Clarity Cloudy H Urine pH 5.0 Ur Specific [place] 1.013 Urine Protein 500 or greater Urine Glucose (UA) Negative Urine Ketones Negative Urine Occult Blood Negative Urine Nitrate Negative Urine Bilirubin Negative Urine Urobilinogen Less than 2 Ur Leukocyte Esterase Negative Urine RBC Less than 1 Urine WBC Less than 1 Ur Squamous Epith Cells 35 Urine Bacteria Few H Micro UA Comment Culture not ind Ur Microscopic Review Not Reportable Urine Culture Comments Culture not ind Blood Type Antibody Screen 10/08/18 04:11 WBC RBC Hgb Hct MCV MCH MCHC RDW Plt Count MPV Neut % (Auto) Lymph % (Auto) [place] % (Auto) Eos % (Auto) Baso % (Auto) Neut # (Auto) Lymph # (Auto) [place] # (Auto) Eos # (Auto) Baso # (Auto) WBC Differential Differential Comment PT INR APTT Sodium 140 Potassium 4.1 Chloride 107 Carbon Dioxide 22.7 Anion Gap 10 BUN 46 H Creatinine 6.55 H Estimated GFR 7 L Random Glucose 86 Calcium 8.0 L Urine Color Urine Clarity Urine pH Ur Specific [place] Urine Protein Urine Glucose (UA) Urine Ketones Urine Occult Blood Urine Nitrate Urine Bilirubin Urine Urobilinogen Ur Leukocyte Esterase Urine RBC Urine WBC Ur Squamous Epith Cells Urine Bacteria Micro UA Comment Ur Microscopic Review Urine Culture Comments Blood Type Antibody Screen Hospital Course: with a PMH of ESRD on HD every M/W/F Pt s/p L UE BB AVF access revision Pt doing well with reports of Left arm incisional pain Prevena intact to L Arm w/o swelling or hematoma Palpable distal pulses No reports of hand pain Pt clear for D/C POD 1 after Hemodialysis Pt to f/u on POD 7 in our out pt clinic for wound vac removal E- Forcse reviewed- Rx pain medication for 3days for post operative pain management - Discharge Instructions Any questions or concerns: Call [facility] [phone] Discharge Plan - Discharge Disposition Patient Disposition: 01 Discharge Home - Discharge Condition Condition: Good - Discharge Order Discharge Orders: Discharge Order (Routine); Ordered 10/08/18 Ordered By: Nita Kennedy - Physicians Team Primary Care Provider: Primary Care Physici,No Attending Provider: Monroe Rodriguez Other Providers: Yamil Allen MD - Rxs /Orders / Referrals /Forms Prescriptions: New hydromorphone 2 mg Tablet 2 mg PO Q4H PRN (Reason: pain) Qty: 18 RF: 0 Continue albuterol sulfate 90 mcg/actuation Hfa Aerosol Inhaler 1 puff INHALATION Q6H PRN (Reason: Shortness Of Breath Or Wheezing) Qty: 1 RF: 0 bumetanide 2 mg tablet 4 mg PO DAILY calcium carbonate [Calcium 500] 500 mg calcium (1,250 mg) Tablet 500 mg PO QID Qty: 0 RF: 0 carvedilol [Coreg] 6.25 mg tablet 3.125 mg PO BID sacubitril-valsartan 49-51 mg Tablet 1 tab PO BID Discontinued hydrocodone-acetaminophen 10-325 mg Tablet 1 tab PO Q4-6H PRN (Reason: Pain) Referrals: Primary Care Imani Carmen [Primary Care Provider] - See Instructions Monroe Rodriguez MD [Physician] - See Instructions (follow up on 10/13/18 ( SATURDAY) for a wound vac removal at 1030) - Discharge Instructions Patient Printed Instructions: Dialysis Diet (GEN), Arteriovenous Fistula Creation for Hemodialysis (DC), End Stage Kidney Disease (GEN) - Post Discharge Care Plan Care Plan Goals: Discharge Care Plan Goals After Vascular Surgery Contact: Please call [phone] if you have any problems or have questions regarding your hospitalization. Directions to Meet Your Goals: 1. Diet: * You may resume a regular diet as you were eating at home before your admission. 2. Activity: * Increase your activity level gradually. * Keep surgical extremities elevated when at rest. This will help limit the swelling, bruising and discomfort normally present after surgery. * Walking is a good form of light exercise. Go for a walk at least 3 times per day. * No heavy lifting (lifting over 10 pounds) for at least 4 weeks from surgery. * Check with your surgeon to ensure when you are cleared for heavy lifting and full-intensity exercising. * Your strength will gradually improve. * No driving or operating motorized vehicles while on prescription pain medications. * No swimming until wounds fully healed. * Return to work when cleared by MD/PA/RELIEF DRILLER. 3. Bathing: Shower daily. * Gently let soap and water run over your incision and pat dry. Do not scrub the incision/wound. * Don't soak in a bath or submerge your incision in water until your incision is healed and evaluated by your physician at follow-up (usually two weeks). 4. Wound Care: INCISION SITE CARE INSTRUCTIONS: * You may leave your incision open to air. * Keep your incision clean and dry, unless showering. See above. * Moisture near the incision will cause the wound to open. * No lotions, creams, ointments, or powders on incisions until they are well- healed. * If you have glue over the incision(s), allow it to fall off naturally in 1-3 weeks * If present, kyler/sutures will be removed 2-3 weeks after surgery during your follow-up clinic visit. * If present, change dressing/bandage when soaked/soiled as needed. * Observe wound daily, checking for signs and symptoms of infection including: foul odor, drainage from the incision, increased redness, increased pain at incision, or increased swelling. 5. Pain Control: Expect post-operative pain for 1-4 weeks after surgery. Your pain will improve gradually. * You may have been provided with a prescription for pain medication. Please take as directed, and be aware of side effects such as drowsiness, constipation and mild stomach discomfort. Pain pills on an empty stomach can cause nausea , so eat a small amount of food, such as crackers, when taking these pills. * Take aemm-ahg-zevosdu stool softeners (Colace or Senna) with your prescribed pain medication. * Acetaminophen (500mg every 6 hours) or Ibuprofen (400mg every 6 hours) may be used in conjunction with narcotics to relieve pain. DO NOT take more than 4 grams (4000mg) of Tylenol in one day, as this can harm your liver. DO NOT take ibuprofen IF: you have an allergy to non-steroidal anti-inflammatory medications, you are taking Coumadin, you have been told you have kidney problems, or you have a history of gastrointestinal bleeding or ulcers. DO NOT take more than 3.2 grams (3200mg) of ibuprofen in one day. * You may also find relief from using heat packs or pads or ice packs. 6. Bowel Regimen for Constipation: * People who undergo surgery are likely to develop post-operative constipation. Exposure to narcotics and changes in diet, fluid intake, and physical activity are known contributors to constipation. We recommend routine stool softeners and/ or laxatives after surgery for most patients. Start by taking one medication. You can increase as directed to relieve constipation. Stop taking these medications if you develop diarrhea. These medications are available over-the- counter and do not require a prescription: * Colace is a stool softener. We recommend starting at 100mg orally twice per day as needed for soft stools and increase to a maximum of 200mg twice daily as needed. * Senna is a laxative that works by keeping water in the intestine to help stool move along the intestinal tract. Take 1 tablet daily as needed for soft stool and increase to a maximum of 2 tablets twice daily as needed. Take Senna with two full glasses of water each time. * Miralax, Dulcolax and Milk of Magnesia are other zomp-dwf-lxvikbx laxatives that may be used as needed for post-operative constipation. * Drink 6-8 glasses of water per day. * Consume 15-30g of fiber per day: * Metamucil powder, 1-2 tablespoons 1-2 times/day OR Benefiber powder, 2 tablespoons 4 times/day. * Avoid straining. 7. Follow-Up: Do Not miss your follow-up appointment. Keep up with all your appointments and yearly check ups If you have any of the following symptoms please call [phone] immediately: Excessive swelling of the affected extremity Sudden onset of severe or unusual pain in the affected extremity Pain that gets worse or is not relieved by medication Warmth, redness, or swelling in the skin around the wound Foul drainage from incision Extensive bruising or discoloration Wound that opens up or pulls apart Fever above 101.5F or shaking chills Nausea or vomiting Severe diarrhea or severe constipation Dizziness or fainting Chest pain, shortness of breath, or increased work of breathing Weight gain >10 lbs over 3-4 days Inability to urinate for more than 6 hours Cloudy or foul smelling urine Urge to urinate more often than usual Symptoms to Report to Your Doctor: Temperature 101F or higher Pain uncontrolled by medication Drainage or foul odor from incision Extensive bruising or discoloration Chest pain Shortness of breath Nausea, vomiting or dizziness Call 911: Call 911 right away if you have: Sudden onset of chest pain that is not relieved by medications Shortness of breath
--- NOTE | 2018-10-08 10:29 | P.PNNP ---
Subjective Interval history: Seen during hemodialysis, tolerating well. Denies any shortness of breath, nausea, vomiting or diarrhea. <Reyna Conti - Last Filed: 10/08/18 10:24> Physical Exam Vital signs: Vital Signs 10/07/18 12:21 10/07/18 14:15 10/07/18 14:30 Temperature 98.7 F 98.2 F Pulse Rate 85 101 H 87 Respiratory Rate 16 16 16 Blood Pressure 136/85 142/93 H 148/88 H Pulse Oximetry 98 100 100 10/07/18 14:45 10/07/18 14:53 10/07/18 14:55 Temperature Pulse Rate 80 Respiratory Rate 16 16 Blood Pressure 146/81 H Pulse Oximetry 100 98 10/07/18 15:00 10/07/18 15:15 10/07/18 15:20 Temperature Pulse Rate 79 85 Respiratory Rate 17 17 17 Blood Pressure 150/81 H 140/81 Pulse Oximetry 100 100 10/07/18 15:30 10/07/18 15:45 10/07/18 16:15 Temperature Pulse Rate 81 80 81 Respiratory Rate 16 16 16 Blood Pressure 137/78 143/79 H 143/77 H Pulse Oximetry 97 97 97 10/07/18 16:45 10/07/18 16:55 10/07/18 17:00 Temperature 97.7 F Pulse Rate 84 82 Respiratory Rate 16 16 16 Blood Pressure 141/84 H 144/84 H Pulse Oximetry 97 9 L 100 10/07/18 17:14 10/07/18 18:00 10/07/18 19:00 Temperature 98.0 F Pulse Rate 85 78 102 H Respiratory Rate 16 Blood Pressure 139/78 Pulse Oximetry 100 10/07/18 20:00 10/07/18 20:34 10/07/18 21:00 Temperature 98.9 F Pulse Rate 94 H 86 Respiratory Rate 17 18 Blood Pressure 136/79 Pulse Oximetry 99 10/07/18 21:20 10/07/18 22:24 10/07/18 23:00 Temperature Pulse Rate 86 Respiratory Rate 16 16 Blood Pressure Pulse Oximetry 10/07/18 23:52 10/07/18 23:55 10/08/18 01:00 Temperature 98.9 F Pulse Rate 87 75 Respiratory Rate 17 17 Blood Pressure 144/81 H Pulse Oximetry 97 10/08/18 02:00 10/08/18 03:00 10/08/18 03:48 Temperature 98.3 F Pulse Rate 78 78 83 Respiratory Rate 18 Blood Pressure 146/75 H Pulse Oximetry 99 10/08/18 04:00 10/08/18 05:00 10/08/18 05:17 Temperature Pulse Rate 78 78 92 H Respiratory Rate Blood Pressure Pulse Oximetry 10/08/18 07:39 Temperature 98.4 F Pulse Rate 82 Respiratory Rate 16 Blood Pressure 115/59 L Pulse Oximetry 100 Intake & Output 10/07/18 10/08/18 10/08/18 18:59 06:59 18:59 Intake Total 460 / 460 480 / 480 Output Total 30 / 30 600 / 600 Balance 430 / 430 -120 / -120 Weight 85.9 kg 85.6 kg Intake: Oral 460 / 460 480 / 480 Output: Urine 30 600 / 600 Other: # Voids 1 Date of Last Bowel Movement 10/06/18 Weight On Admission 85.9 kg Narrative: GENERAL: alert and oriented SKIN: Warm and dry. NECK: Supple, trachea midline. No JVD. CARDIOVASCULAR: Regular rate and rhythm without murmurs, gallops, or rubs. Permacath right IJ, AVF left arm, dressing on. RESPIRATORY: Breath sounds equal bilaterally. No accessory muscle use. GASTROINTESTINAL: Abdomen soft, non-tender, nondistended. MUSCULOSKELETAL: No cyanosis, or edema. BACK: Nontender without obvious deformity. No CVA tenderness. <Reyna Conti - Last Filed: 10/08/18 10:24> Vital signs: Vital Signs 10/07/18 17:14 10/07/18 18:00 10/07/18 19:00 Temperature 98.0 F Pulse Rate 85 78 102 H Respiratory Rate 16 Blood Pressure 139/78 Pulse Oximetry 100 10/07/18 20:00 10/07/18 20:34 10/07/18 21:00 Temperature 98.9 F Pulse Rate 94 H 86 Respiratory Rate 17 18 Blood Pressure 136/79 Pulse Oximetry 99 10/07/18 21:20 10/07/18 22:24 10/07/18 23:00 Temperature Pulse Rate 86 Respiratory Rate 16 16 Blood Pressure Pulse Oximetry 10/07/18 23:52 10/07/18 23:55 10/08/18 01:00 Temperature 98.9 F Pulse Rate 87 75 Respiratory Rate 17 17 Blood Pressure 144/81 H Pulse Oximetry 97 10/08/18 02:00 10/08/18 03:00 10/08/18 03:48 Temperature 98.3 F Pulse Rate 78 78 83 Respiratory Rate 18 Blood Pressure 146/75 H Pulse Oximetry 99 10/08/18 04:00 10/08/18 05:00 10/08/18 05:17 Temperature Pulse Rate 78 78 92 H Respiratory Rate Blood Pressure Pulse Oximetry 10/08/18 07:00 10/08/18 07:39 10/08/18 08:00 Temperature 98.4 F Pulse Rate 92 H 82 92 H Respiratory Rate 16 Blood Pressure 115/59 L Pulse Oximetry 100 100 10/08/18 09:00 10/08/18 10:00 10/08/18 11:00 Temperature Pulse Rate 92 H 90 79 Respiratory Rate Blood Pressure Pulse Oximetry 10/08/18 12:00 10/08/18 13:00 Temperature 98.5 F Pulse Rate 92 H 88 Respiratory Rate 16 Blood Pressure 159/82 H Pulse Oximetry 100 Intake & Output 10/07/18 10/08/18 10/08/18 18:59 06:59 18:59 Intake Total 460 / 460 480 / 480 Output Total 30 / 30 600 / 600 2500 / 2500 Balance 430 / 430 -120 / -120 -2500 / -2500 Weight 85.9 kg 85.6 kg Intake: Oral 460 / 460 480 / 480 Output: Urine 30 / 30 600 / 600 Hemodialysis Amount 2500 / 2500 Other: # Voids 1 Date of Last Bowel Movement 10/06/18 Weight On Admission 85.9 kg <Yamil Allen - Last Filed: 10/08/18 17:01> Assessment and Plan - Assessment (1) ESRD (end stage renal disease) Code(s): N18.6 - End stage renal disease Status: Chronic Plan: End stage renal disease on Hemodialysis. Seen during hemodialysis, 3 k bath, will remove fluid as tolerated Plan for discharge today. Next dialysis at [facility] on Saturday. <Reyna Conti - Last Filed: 10/08/18 10:24> - Assessment (1) ESRD (end stage renal disease) Code(s): N18.6 - End stage renal disease Status: Chronic Plan: Patient with end stage renal disease, post 2nd stage AVF surgery. HD today and for discharge. Hgb. is stable. <Yamil Allen - Last Filed: 10/08/18 17:01>
[2018-10-08 12:33] VITALS: BP 159/82; TEMP 98.5
[2018-10-08] MEDS: Carvedilol 6.25 MG Tablet PO SCH (12:42)
[2018-10-08] MEDS: Calcium Carbonate 500 MG Tablet PO SCH (12:43)
[2018-10-08] MEDS ORDERED: Heparin - SQ 10,000 UNITS/ML Vial SQ SCH (13:00)
[2018-10-08 13:10] VITALS: PULSE 88
== END 2018-10-08 13:45 | disposition home or self-care (01) ==
LOC: HSDC 11:04 → HSDI 11:04 → HCPC 17:09
PROVIDERS: ADMIT Surgery; ATTEND Surgery